=== PATIENT | male | born 1960 | race Caucasian/White ===

== ENCOUNTER 2017-10-12 09:26 | Observation (INO) | payer OTHER, SELFPAY ==
[2017-10-12] VITALS (10 sets, daily range): BP systolic 129–187; BP diastolic 56–87; PULSE 60–76; RESP 16–24; TEMP 36.1–37.1; O2SAT 95–99; BMI 47.2
--- NOTE | 2017-10-12 09:42 | DI.RAD.S_ITS ---
PROCEDURE: XR CHEST 2V INDICATIONS: chest pain TECHNIQUE: 2 views of the chest were acquired. COMPARISON: [facility], , CHEST 1 VIEW, 01/19/2017, 12:22. [facility], , XR CHEST 1V, 08/10/2017, 20:02. FINDINGS: Surgical changes and devices: Postsurgical changes are redemonstrated in the mediastinum. Lungs and pleura: No pleural effusions or pneumothorax. There is increased pulmonary edema. Mediastinum: Mediastinal contours are similar to the prior studies. Heart size is enlarged. Bones and chest wall: No suspicious bony abnormalities. Soft tissues appear unremarkable. IMPRESSION: 1. Increased pulmonary edema. Dictated by: Jose Mcdermott M.D. on 10/12/2017 at 10:46 Approved by: Jose Mcdermott M.D. on 10/12/2017 at 10:48
--- NOTE | 2017-10-12 09:59 | ED.CHESTPAIN ---
HPI - Chest Pain General Chief Complaint: Chest Pain Stated Complaint: CHEST PAIN,TOOK TWO NITRO Time Seen by Provider: 10/12/17 09:32 Source: patient Mode of arrival: ambulatory Limitations: no limitations History of Present Illness HPI narrative: Patient is a 57-year-old male with extensive cardiac history id a [place]. This is now his 2nd visit to the ED for chest pain. He took 1 or 2 nitro prior to arrival which she says only helped some. He says that this feels a little bit different and his pressure on his chest. It is nonradiating no shortness of breath. He was being evaluated at [facility] when he developed the pain and was sent to the ED for further evaluation. He was seen in August for the same. He had 2-troponins in the ED. He never followed up for for evaluation. MD complaint: chest pain Related Data Home Medications Medication Instructions Recorded Confirmed aspirin 81 mg PO DAILY #0 03/17/11 10/12/17 glipizide 10 mg PO QDAY #0 12/25/16 10/12/17 hydrochlorothiazide 25 mg PO QDAY #0 12/25/16 10/12/17 metformin [Glucophage XR] 500 mg PO BIDCC #60 tab 12/25/16 10/12/17 tramadol 50 mg PO BID #0 12/25/16 10/12/17 warfarin [Coumadin] 10 mg PO SUMOWEFR #0 12/25/16 10/12/17 lisinopril 40 mg PO QDAY #0 01/19/17 10/12/17 warfarin [Coumadin] 7.5 mg PO TUTHSA #0 01/19/17 10/12/17 atorvastatin 40 mg PO BEDTIME 10/12/17 10/12/17 furosemide 80 mg PO DAILY 10/12/17 10/12/17 gabapentin 600 mg PO TID 10/12/17 10/12/17 insulin aspart U-100 35 units SUB-Q TIDWM 10/12/17 10/12/17 insulin glargine 50 units SUB-Q BID 10/12/17 10/12/17 isosorbide mononitrate 30 mg PO QAM 10/12/17 10/12/17 levothyroxine [Synthroid] 75 mcg PO DAILY 10/12/17 10/12/17 lidocaine-prilocaine 1 applic TOPICAL DIRECTED 10/12/17 10/12/17 nitroglycerin [Nitrostat] 0.4 mg SUBLINGUAL Q5 MIN PRN PRN 10/12/17 10/12/17 Previous Rx's Medication Instructions Recorded fenofibrate 160 mg PO QDAY #90 03/25/12 metoprolol succinate [Toprol XL] 25 mg PO QDAY #30 tab 12/26/16 benztropine 1 mg tablet 1 mg PO BID 90 Days #180 tab 10/12/17 divalproex 500 mg tablet,delayed 1,500 mg PO BEDTIME #270 tab 10/12/17 release divalproex 500 mg tablet,delayed 500 mg PO QAM #90 tab 10/12/17 release fluoxetine 40 mg capsule 80 mg PO QAM 90 Days #180 tab 10/12/17 ziprasidone 80 mg capsule 160 mg PO BEDTIME #180 cap 10/12/17 Allergies Allergy/AdvReac Type Severity Reaction Status Date / Time Penicillins [PENICILLINS] Allergy Unknown Unverified 08/10/17 20:07 Review of Systems Review of Systems GENERAL: Denies chills, fatigue, malaise, fever, sweats, travel HEENT: Denies sinus pain, ear pain, sore throat, difficulty swallowing, neck pain RESPIRATORY: Denies dyspnea, cough, wheezing, hemoptysis, sputum. CARDIOVASCULAR: See HPI GASTROINTESTINAL: Denies nausea, vomiting, abdominal pain, diarrhea, constipation, melena. : Denies dysuria, frequency, incontinence, hematuria, urinary retention, flank pain. MUSCULOSKELETAL: Denies weakness, joint pain, or bony pain SKIN: No rash, no erythema, no pruritus NEUROLOGIC: Denies weakness, dizziness, headache, numbness, change in speech, confusion PSYCHIATRIC: No concerning psychosocial issues. 12 point review of systems is negative except for those stated above and HPI All systems reviewed & are unremarkable except as noted in HPI and below PFSH Medical History Chronic left shoulder pain (Acute) Pulmonary embolism (Acute) CAD (coronary artery disease) (Chronic) Diabetes type 2, controlled (Chronic) HTN (hypertension) (Chronic) Hyperlipidemia (Chronic) Schizoaffective disorder (Chronic) Surgical History Hx of CABG (Chronic) Family History: Reviewed 10/12/17 by Julio Salmon MD Social History household members: family lives independently: Yes caregiver/support person: Yes housing: house Smoking Status: Former smoker alcohol intake: never substance use type: does not use Exam Initial Vital Signs Initial Vital Signs: Vital Signs Temperature 97.8 F 10/12/17 09:35 Pulse Rate 67 10/12/17 09:35 Respiratory Rate 24 10/12/17 09:35 Blood Pressure 173/80 H 10/12/17 09:35 Pulse Oximetry 96 10/12/17 09:35 Const General: cooperative Nutritional Appearance: obese Orientation: alert, awake and oriented x3 Neck Neck: normal visual inspection Chest Chest: normal inspection of the chest Resp Effort & Inspection: normal respiratory effort, able to speak in complete sentences, no respiratory distress and no use of accessory muscles Auscultation: clear to auscultation bilaterally, no rales, no rhonchi and no wheezes Cardio Rate: regular rate Rhythm: regular rhythm Heart Sounds: no click, no gallops, no murmurs and no rubs Pulses: normal peripheral pulses Skin General: no rashes or lesions noted, No jaundice and No petechiae Neuro General: alert, oriented x3, gait normal and no focal motor deficits Speech: speech normal Course Orders Ordered: ED Orders 10/12/17 09:41 EKG-12 Lead Stat 10/12/17 09:42 XR chest 2V Stat 10/12/17 09:50 B Type Natriuretic Peptide Stat Complete Blood Count AUTO DIFF Stat Comprehensive Metabolic Panel Stat Lipase Stat Partial Thromboplastin Time Stat Prothrombin Time INR Stat Troponin with CK Cardiac Panel Stat 10/12/17 14:00 EKG-12 Lead DAILY 10/12/17 14:20 Hemoglobin A1C % Routine Lipid Panel Routine Troponin I Q8H 10/12/17 22:00 Troponin I Q8H 10/13/17 05:00 Prothrombin Time INR Routine Troponin I Routine Acetaminophen (Tylenol) 650 mg PO Q4HR JOSE L Aspirin (Aspirin Ec) 325 mg PO DAILY JOSE L Atorvastatin Calcium (Lipitor) 40 mg PO BEDTIME JOSE L Benztropine Mesylate (Cogentin) 1 mg PO BID JOSE L Dextrose (D50w) 25 gm IV PRN PRN PRN Reason: Hypoglycemia Divalproex Sodium (Depakote) 1,500 mg PO BEDTIME [facility] Fenofibrate (Triglide) 160 mg PO DAILY [facility] Fluoxetine HCl (Prozac) 80 mg PO DAILY [facility] Furosemide (Lasix) 80 mg PO DAILY [facility] Gabapentin (Neurontin) 600 mg PO TID JOSE L Glipizide (Glucotrol) 10 mg PO DAILY [facility] Hydrochlorothiazide (Hydrochlorothiazide) 25 mg PO DAILY [facility] Insulin Aspart (Novolog Flexpen) 0 unit SUBCUT ACHS JOSE L; Protocol Insulin Aspart (Novolog Flexpen) 35 unit SUBCUT TIDWM [facility] Insulin Glargine (Lantus Solostar (Pen)) 50 unit SUBCUT BID [facility] Isosorbide Mononitrate (Imdur) 30 mg PO DAILY [facility] Levothyroxine Sodium (Synthroid) 75 mcg PO DAILY [facility] Lidocaine/Prilocaine (Lidocaine-Prilocaine Cream) gm TOP DIRECTED [facility] Lisinopril (Zestril) 40 mg PO DAILY [facility] Magnesium Hydroxide (Milk Of Magnesia) 30 ml PO DAILY PRN PRN Reason: Constipation Metoprolol Succinate (Toprol Xl) 25 mg PO DAILY [facility] Morphine Sulfate (Morphine) 2 mg IV Q5MIN PRN PRN Reason: Chest Pain Last Admin: 10/12/17 14:28 Dose: 2 mg Nitroglycerin (Nitrostat) 0.4 mg SL Q5MIN PRN PRN Reason: CHEST PAIN Non-Formulary Medication (Divalproex [Depakote]) 500 mg PO DAILY [facility] Non-Formulary Medication (Ziprasidone Hcl [Ziprasidone Hcl]) 160 mg PO BEDTIME [facility] Tramadol HCl (Ultram 50mg Prepack) bottle MISC BID [facility] Warfarin Sodium (Coumadin) 7.5 mg PO TUTHSA [facility] Warfarin Sodium (Coumadin) 10 mg PO SUMOWEFR JOSE L Discontinued Medications Metformin HCl (Glucophage Xr) 500 mg PO BIDCC [facility] Nitroglycerin (Nitrostat) 0.4 mg SL [id number] PRN PRN Reason: Chest Pain Last Admin: 10/12/17 11:30 Dose: 0.4 mg Admin: 10/12/17 11:20 Dose: 0.4 mg Admin: 10/12/17 11:10 Dose: 0.4 mg Vital Signs - 8 hr 10/12/17 09:35 10/12/17 11:00 10/12/17 11:10 Temperature 97.8 F Pulse Rate 67 63 62 Respiratory Rate 24 16 Blood Pressure 173/80 H 187/86 H Blood Pressure [Left Arm] 167/82 H Pulse Oximetry 96 99 10/12/17 11:17 10/12/17 12:07 10/12/17 12:50 Temperature 98.8 F Pulse Rate 60 60 64 Respiratory Rate 18 22 16 Blood Pressure 148/87 H Blood Pressure [Left Arm] 167/82 H 187/86 H Pulse Oximetry 98 97 96 MDM - Chest Pain Lab Data Attestation: I reviewed the patient's lab results. Result diagrams: 10/12/17 09:50 10/12/17 09:50 Lab Results 10/12/17 10/12/17 10/12/17 Range/Units 09:50 09:50 09:50 WBC 7.5 (4.5-11.0) X10^3/uL RBC 4.55 (4.5-5.9) X10^6/uL Hgb 12.7 L (13.5-17.5) g/dL Hct 38.7 L (41-53) % MCV 84.9 (80-100) fL MCH 28.0 (26-34) PG MCHC 33.0 (30-36) % RDW 14.7 (11.6-14.8) % Plt Count 178 (150-400) X10^3/uL Neut % (Auto) 68.4 (50-75) % Lymph % (Auto) 24.1 L (25-40) % [place] % (Auto) 6.1 (3-14) % Eos % (Auto) 0.8 L (2-4) % Baso % (Auto) 0.6 (0-2) % Neut # (Auto) 5100 (6859-3333) /uL PT 29.7 H (10.1-12.7) SECONDS INR 2.8 H (0.9-1.3) APTT 41 H (26.4-36.2) SECONDS Sodium (137-145) mmol/L Potassium (3.4-5.1) mmol/L Chloride (98-107) mmol/L Carbon Dioxide (22-32) mmol/L BUN (9-20) mg/dL Creatinine (0.66-1.25) mg/dL Estimated GFR (>60) mL/min BUN/Creatinine Ratio (6-22) Glucose (70-100) mg/dL Hemoglobin A1c (4.0-6.0) % Calcium (8.4-10.2) mg/dL Total Bilirubin (0.2-1.3) mg/dL AST (17-59) IU/L ALT (21-72) IU/L Alkaline Phosphatase (38-126) U/L Total Creatine Kinase (55-170) U/L CK-MB (CK-2) (<2.37) ng/mL CK-MB (CK-2) Rel Index (1.5-5.0) % Troponin I (0.01-0.034) ng/mL B-Natriuretic Peptide 151.0 H (<100) Total Protein (6.3-8.2) g/dL Albumin (3.5-5.0) g/dL Globulin (1.7-4.1) g/dL Albumin/Globulin Ratio (1.0-2.8) Lipase (23-300) U/L 10/12/17 10/12/17 Range/Units 09:50 14:20 WBC (4.5-11.0) X10^3/uL RBC (4.5-5.9) X10^6/uL Hgb (13.5-17.5) g/dL Hct (41-53) % MCV (80-100) fL MCH (26-34) PG MCHC (30-36) % RDW (11.6-14.8) % Plt Count (150-400) X10^3/uL Neut % (Auto) (50-75) % Lymph % (Auto) (25-40) % [place] % (Auto) (3-14) % Eos % (Auto) (2-4) % Baso % (Auto) (0-2) % Neut # (Auto) (3679-9284) /uL PT (10.1-12.7) SECONDS INR (0.9-1.3) APTT (26.4-36.2) SECONDS Sodium 140 (137-145) mmol/L Potassium 4.3 (3.4-5.1) mmol/L Chloride 103 (98-107) mmol/L Carbon Dioxide 28 (22-32) mmol/L BUN 11 (9-20) mg/dL Creatinine 1.00 (0.66-1.25) mg/dL Estimated GFR > 60.0 (>60) mL/min BUN/Creatinine Ratio 11.0 (6-22) Glucose 76 (70-100) mg/dL Hemoglobin A1c 7.0 H (4.0-6.0) % Calcium 9.0 (8.4-10.2) mg/dL Total Bilirubin 0.4 (0.2-1.3) mg/dL AST 24 (17-59) IU/L ALT 39 (21-72) IU/L Alkaline Phosphatase 75 (38-126) U/L Total Creatine Kinase 281 H (55-170) U/L CK-MB (CK-2) 1.82 (<2.37) ng/mL CK-MB (CK-2) Rel Index 0.6 L (1.5-5.0) % Troponin I < 0.012 (0.01-0.034) ng/mL B-Natriuretic Peptide (<100) Total Protein 7.0 (6.3-8.2) g/dL Albumin 3.9 (3.5-5.0) g/dL Globulin 3.1 (1.7-4.1) g/dL Albumin/Globulin Ratio 1.3 (1.0-2.8) Lipase 35 (23-300) U/L Imaging Data Chest x-ray: Radiologist's impression: PROCEDURE: XR CHEST 2V INDICATIONS: chest pain TECHNIQUE: 2 views of the chest were acquired. COMPARISON: [facility], CHEST 1 VIEW, 01/19/2017, 12:22. [facility], XR CHEST 1V, 08/10/2017, 20:02. FINDINGS: Surgical changes and devices: Postsurgical changes are redemonstrated in the mediastinum. Lungs and pleura: No pleural effusions or pneumothorax. There is increased pulmonary edema. Mediastinum: Mediastinal contours are similar to the prior studies. Heart size is enlarged. Bones and chest wall: No suspicious bony abnormalities. Soft tissues appear unremarkable. IMPRESSION: 1. Increased pulmonary edema. Dictated by: Jose Mcdermott M.D. on 10/12/2017 at 10:46 ECG Data Attestation: I personally reviewed and interpreted this ECG as follows: Prior ECG tracings: available for review Interpretation: Normal sinus rhythm rate [address] changes Q-waves noted in inferior leads similar to previous EKG MDM Narrative Medical decision making narrative: Pain has improved with nitroglycerin in the ED Patient has extensive cardiac disease, this is the 2nd visit to the ED initially ruled out with troponins however still has not had further evaluation. [facility] or all of full. Not able to get extent over further workup at this time. He will be placed in observation here. Dr. Salmon has been updated and agrees Discharge Plan Departure Patient Disposition: Admitted as Observation Clinical Impression: Chest pain Discharge Date/Time: 10/12/17 12:44 Interventions: ED Discharge Assessment Last Done: 10/12/17 12:44 Admit Date/Time: 10/12/17 12:40 Admit Provider: Julio Salmon V
--- NOTE | 2017-10-12 10:02 | ED_ITS ---
HPI - Chest Pain General Chief Complaint: Chest Pain Stated Complaint: CHEST PAIN,TOOK TWO NITRO Time Seen by Provider: 10/12/17 09:32 Source: patient Mode of arrival: ambulatory Limitations: no limitations History of Present Illness HPI narrative: Patient is a 57-year-old male with extensive cardiac history id a [place]. This is now his 2nd visit to the ED for chest pain. He took 1 or 2 nitro prior to arrival which she says only helped some. He says that this feels a little bit different and his pressure on his chest. It is nonradiating no shortness of breath. He was being evaluated at [facility] when he developed the pain and was sent to the ED for further evaluation. He was seen in August for the same. He had 2-troponins in the ED. He never followed up for for evaluation. MD complaint: chest pain Related Data Home Medications Medication Instructions Recorded Confirmed aspirin 81 mg PO DAILY #0 03/17/11 10/12/17 glipizide 10 mg PO QDAY #0 12/25/16 10/12/17 hydrochlorothiazide 25 mg PO QDAY #0 12/25/16 10/12/17 metformin [Glucophage XR] 500 mg PO BIDCC #60 tab 12/25/16 10/12/17 tramadol 50 mg PO BID #0 12/25/16 10/12/17 warfarin [Coumadin] 10 mg PO SUMOWEFR #0 12/25/16 10/12/17 lisinopril 40 mg PO QDAY #0 01/19/17 10/12/17 warfarin [Coumadin] 7.5 mg PO TUTHSA #0 01/19/17 10/12/17 atorvastatin 40 mg PO BEDTIME 10/12/17 10/12/17 furosemide 80 mg PO DAILY 10/12/17 10/12/17 gabapentin 600 mg PO TID 10/12/17 10/12/17 insulin aspart U-100 35 units SUB-Q TIDWM 10/12/17 10/12/17 insulin glargine 50 units SUB-Q BID 10/12/17 10/12/17 isosorbide mononitrate 30 mg PO QAM 10/12/17 10/12/17 levothyroxine [Synthroid] 75 mcg PO DAILY 10/12/17 10/12/17 lidocaine-prilocaine 1 applic TOPICAL DIRECTED 10/12/17 10/12/17 nitroglycerin [Nitrostat] 0.4 mg SUBLINGUAL Q5 MIN PRN PRN 10/12/17 10/12/17 Previous Rx's Medication Instructions Recorded fenofibrate 160 mg PO QDAY #90 03/25/12 metoprolol succinate [Toprol XL] 25 mg PO QDAY #30 tab 12/26/16 benztropine 1 mg tablet 1 mg PO BID 90 Days #180 tab 10/12/17 divalproex 500 mg tablet,delayed 1,500 mg PO BEDTIME #270 tab 10/12/17 release divalproex 500 mg tablet,delayed 500 mg PO QAM #90 tab 10/12/17 release fluoxetine 40 mg capsule 80 mg PO QAM 90 Days #180 tab 10/12/17 ziprasidone 80 mg capsule 160 mg PO BEDTIME #180 cap 10/12/17 Allergies Allergy/AdvReac Type Severity Reaction Status Date / Time Penicillins [PENICILLINS] Allergy Unknown Unverified 08/10/17 20:07 Review of Systems Review of Systems GENERAL: Denies chills, fatigue, malaise, fever, sweats, travel HEENT: Denies sinus pain, ear pain, sore throat, difficulty swallowing, neck pain RESPIRATORY: Denies dyspnea, cough, wheezing, hemoptysis, sputum. CARDIOVASCULAR: See HPI GASTROINTESTINAL: Denies nausea, vomiting, abdominal pain, diarrhea, constipation, melena. : Denies dysuria, frequency, incontinence, hematuria, urinary retention, flank pain. MUSCULOSKELETAL: Denies weakness, joint pain, or bony pain SKIN: No rash, no erythema, no pruritus NEUROLOGIC: Denies weakness, dizziness, headache, numbness, change in speech, confusion PSYCHIATRIC: No concerning psychosocial issues. 12 point review of systems is negative except for those stated above and HPI All systems reviewed & are unremarkable except as noted in HPI and below PFSH Medical History Chronic left shoulder pain (Acute) Pulmonary embolism (Acute) CAD (coronary artery disease) (Chronic) Diabetes type 2, controlled (Chronic) HTN (hypertension) (Chronic) Hyperlipidemia (Chronic) Schizoaffective disorder (Chronic) Surgical History Hx of CABG (Chronic) Family History: Reviewed 10/12/17 by Julio Salmon MD Social History household members: family lives independently: Yes caregiver/support person: Yes housing: house Smoking Status: Former smoker alcohol intake: never substance use type: does not use Exam Initial Vital Signs Initial Vital Signs: Vital Signs Temperature 97.8 F 10/12/17 09:35 Pulse Rate 67 10/12/17 09:35 Respiratory Rate 24 10/12/17 09:35 Blood Pressure 173/80 H 10/12/17 09:35 Pulse Oximetry 96 10/12/17 09:35 Const General: cooperative Nutritional Appearance: obese Orientation: alert, awake and oriented x3 Neck Neck: normal visual inspection Chest Chest: normal inspection of the chest Resp Effort & Inspection: normal respiratory effort, able to speak in complete sentences, no respiratory distress and no use of accessory muscles Auscultation: clear to auscultation bilaterally, no rales, no rhonchi and no wheezes Cardio Rate: regular rate Rhythm: regular rhythm Heart Sounds: no click, no gallops, no murmurs and no rubs Pulses: normal peripheral pulses Skin General: no rashes or lesions noted, No jaundice and No petechiae Neuro General: alert, oriented x3, gait normal and no focal motor deficits Speech: speech normal Course Orders Ordered: ED Orders 10/12/17 09:41 EKG-12 Lead Stat 10/12/17 09:42 XR chest 2V Stat 10/12/17 09:50 B Type Natriuretic Peptide Stat Complete Blood Count AUTO DIFF Stat Comprehensive Metabolic Panel Stat Lipase Stat Partial Thromboplastin Time Stat Prothrombin Time INR Stat Troponin with CK Cardiac Panel Stat 10/12/17 14:00 EKG-12 Lead DAILY 10/12/17 14:20 Hemoglobin A1C % Routine Lipid Panel Routine Troponin I Q8H 10/12/17 22:00 Troponin I Q8H 10/13/17 05:00 Prothrombin Time INR Routine Troponin I Routine Acetaminophen (Tylenol) 650 mg PO Q4HR JOSE L Aspirin (Aspirin Ec) 325 mg PO DAILY JOSE L Atorvastatin Calcium (Lipitor) 40 mg PO BEDTIME JOSE L Benztropine Mesylate (Cogentin) 1 mg PO BID JOSE L Dextrose (D50w) 25 gm IV PRN PRN PRN Reason: Hypoglycemia Divalproex Sodium (Depakote) 1,500 mg PO BEDTIME [facility] Fenofibrate (Triglide) 160 mg PO DAILY [facility] Fluoxetine HCl (Prozac) 80 mg PO DAILY [facility] Furosemide (Lasix) 80 mg PO DAILY [facility] Gabapentin (Neurontin) 600 mg PO TID JOSE L Glipizide (Glucotrol) 10 mg PO DAILY [facility] Hydrochlorothiazide (Hydrochlorothiazide) 25 mg PO DAILY [facility] Insulin Aspart (Novolog Flexpen) 0 unit SUBCUT ACHS JOSE L; Protocol Insulin Aspart (Novolog Flexpen) 35 unit SUBCUT TIDWM [facility] Insulin Glargine (Lantus Solostar (Pen)) 50 unit SUBCUT BID [facility] Isosorbide Mononitrate (Imdur) 30 mg PO DAILY [facility] Levothyroxine Sodium (Synthroid) 75 mcg PO DAILY [facility] Lidocaine/Prilocaine (Lidocaine-Prilocaine Cream) gm TOP DIRECTED [facility] Lisinopril (Zestril) 40 mg PO DAILY [facility] Magnesium Hydroxide (Milk Of Magnesia) 30 ml PO DAILY PRN PRN Reason: Constipation Metoprolol Succinate (Toprol Xl) 25 mg PO DAILY [facility] Morphine Sulfate (Morphine) 2 mg IV Q5MIN PRN PRN Reason: Chest Pain Last Admin: 10/12/17 14:28 Dose: 2 mg Nitroglycerin (Nitrostat) 0.4 mg SL Q5MIN PRN PRN Reason: CHEST PAIN Non-Formulary Medication (Divalproex [Depakote]) 500 mg PO DAILY [facility] Non-Formulary Medication (Ziprasidone Hcl [Ziprasidone Hcl]) 160 mg PO BEDTIME [facility] Tramadol HCl (Ultram 50mg Prepack) bottle MISC BID [facility] Warfarin Sodium (Coumadin) 7.5 mg PO TUTHSA [facility] Warfarin Sodium (Coumadin) 10 mg PO SUMOWEFR JOSE L Discontinued Medications Metformin HCl (Glucophage Xr) 500 mg PO BIDCC [facility] Nitroglycerin (Nitrostat) 0.4 mg SL [id number] PRN PRN Reason: Chest Pain Last Admin: 10/12/17 11:30 Dose: 0.4 mg Admin: 10/12/17 11:20 Dose: 0.4 mg Admin: 10/12/17 11:10 Dose: 0.4 mg Vital Signs - 8 hr 10/12/17 09:35 10/12/17 11:00 10/12/17 11:10 Temperature 97.8 F Pulse Rate 67 63 62 Respiratory Rate 24 16 Blood Pressure 173/80 H 187/86 H Blood Pressure [Left Arm] 167/82 H Pulse Oximetry 96 99 10/12/17 11:17 10/12/17 12:07 10/12/17 12:50 Temperature 98.8 F Pulse Rate 60 60 64 Respiratory Rate 18 22 16 Blood Pressure 148/87 H Blood Pressure [Left Arm] 167/82 H 187/86 H Pulse Oximetry 98 97 96 MDM - Chest Pain Lab Data Attestation: I reviewed the patient's lab results. Result diagrams: 10/12/17 09:50 10/12/17 09:50 Lab Results 10/12/17 10/12/17 10/12/17 Range/Units 09:50 09:50 09:50 WBC 7.5 (4.5-11.0) X10^3/uL RBC 4.55 (4.5-5.9) X10^6/uL Hgb 12.7 L (13.5-17.5) g/dL Hct 38.7 L (41-53) % MCV 84.9 (80-100) fL MCH 28.0 (26-34) PG MCHC 33.0 (30-36) % RDW 14.7 (11.6-14.8) % Plt Count 178 (150-400) X10^3/uL Neut % (Auto) 68.4 (50-75) % Lymph % (Auto) 24.1 L (25-40) % [place] % (Auto) 6.1 (3-14) % Eos % (Auto) 0.8 L (2-4) % Baso % (Auto) 0.6 (0-2) % Neut # (Auto) 5100 (7770-0119) /uL PT 29.7 H (10.1-12.7) SECONDS INR 2.8 H (0.9-1.3) APTT 41 H (26.4-36.2) SECONDS Sodium (137-145) mmol/L Potassium (3.4-5.1) mmol/L Chloride (98-107) mmol/L Carbon Dioxide (22-32) mmol/L BUN (9-20) mg/dL Creatinine (0.66-1.25) mg/dL Estimated GFR (>60) mL/min BUN/Creatinine Ratio (6-22) Glucose (70-100) mg/dL Hemoglobin A1c (4.0-6.0) % Calcium (8.4-10.2) mg/dL Total Bilirubin (0.2-1.3) mg/dL AST (17-59) IU/L ALT (21-72) IU/L Alkaline Phosphatase (38-126) U/L Total Creatine Kinase (55-170) U/L CK-MB (CK-2) (<2.37) ng/mL CK-MB (CK-2) Rel Index (1.5-5.0) % Troponin I (0.01-0.034) ng/mL B-Natriuretic Peptide 151.0 H (<100) Total Protein (6.3-8.2) g/dL Albumin (3.5-5.0) g/dL Globulin (1.7-4.1) g/dL Albumin/Globulin Ratio (1.0-2.8) Lipase (23-300) U/L 10/12/17 10/12/17 Range/Units 09:50 14:20 WBC (4.5-11.0) X10^3/uL RBC (4.5-5.9) X10^6/uL Hgb (13.5-17.5) g/dL Hct (41-53) % MCV (80-100) fL MCH (26-34) PG MCHC (30-36) % RDW (11.6-14.8) % Plt Count (150-400) X10^3/uL Neut % (Auto) (50-75) % Lymph % (Auto) (25-40) % [place] % (Auto) (3-14) % Eos % (Auto) (2-4) % Baso % (Auto) (0-2) % Neut # (Auto) (0229-4814) /uL PT (10.1-12.7) SECONDS INR (0.9-1.3) APTT (26.4-36.2) SECONDS Sodium 140 (137-145) mmol/L Potassium 4.3 (3.4-5.1) mmol/L Chloride 103 (98-107) mmol/L Carbon Dioxide 28 (22-32) mmol/L BUN 11 (9-20) mg/dL Creatinine 1.00 (0.66-1.25) mg/dL Estimated GFR > 60.0 (>60) mL/min BUN/Creatinine Ratio 11.0 (6-22) Glucose 76 (70-100) mg/dL Hemoglobin A1c 7.0 H (4.0-6.0) % Calcium 9.0 (8.4-10.2) mg/dL Total Bilirubin 0.4 (0.2-1.3) mg/dL AST 24 (17-59) IU/L ALT 39 (21-72) IU/L Alkaline Phosphatase 75 (38-126) U/L Total Creatine Kinase 281 H (55-170) U/L CK-MB (CK-2) 1.82 (<2.37) ng/mL CK-MB (CK-2) Rel Index 0.6 L (1.5-5.0) % Troponin I < 0.012 (0.01-0.034) ng/mL B-Natriuretic Peptide (<100) Total Protein 7.0 (6.3-8.2) g/dL Albumin 3.9 (3.5-5.0) g/dL Globulin 3.1 (1.7-4.1) g/dL Albumin/Globulin Ratio 1.3 (1.0-2.8) Lipase 35 (23-300) U/L Imaging Data Chest x-ray: Radiologist's impression: PROCEDURE: XR CHEST 2V INDICATIONS: chest pain TECHNIQUE: 2 views of the chest were acquired. COMPARISON: [facility], CHEST 1 VIEW, 01/19/2017, 12:22. [facility], XR CHEST 1V, 08/10/2017, 20:02. FINDINGS: Surgical changes and devices: Postsurgical changes are redemonstrated in the mediastinum. Lungs and pleura: No pleural effusions or pneumothorax. There is increased pulmonary edema. Mediastinum: Mediastinal contours are similar to the prior studies. Heart size is enlarged. Bones and chest wall: No suspicious bony abnormalities. Soft tissues appear unremarkable. IMPRESSION: 1. Increased pulmonary edema. Dictated by: Jose Mcdermott M.D. on 10/12/2017 at 10:46 ECG Data Attestation: I personally reviewed and interpreted this ECG as follows: Prior ECG tracings: available for review Interpretation: Normal sinus rhythm rate [address] changes Q-waves noted in inferior leads similar to previous EKG MDM Narrative Medical decision making narrative: Pain has improved with nitroglycerin in the ED Patient has extensive cardiac disease, this is the 2nd visit to the ED initially ruled out with troponins however still has not had further evaluation. The [place] or all of full. Not able to get extent over further workup at this time. He will be placed in observation here. Dr. Salmon has been updated and agrees Discharge Plan Departure Patient Disposition: Admitted as Observation Clinical Impression: Chest pain Discharge Date/Time: 10/12/17 12:44 Interventions: ED Discharge Assessment Last Done: 10/12/17 12:44 Admit Date/Time: 10/12/17 12:40 Admit Provider: Julio Salmon V
[2017-10-12 10:06] LABS: Add Manual Diff / Slide Review NO; Basophils Percent Auto 0.6 % (0-2); Eosinophils Percent Auto 0.8 % (2-4); Hematocrit 38.7 % (41-53); Hemoglobin 12.7 g/dL (13.5-17.5); Lymphocytes Percent Auto 24.1 % (25-40); Mean Corpuscular Volume 84.9 fL (80-100); Monocytes Percent Auto 6.1 % (3-14); Neutrophils Absolute Auto 5100 /uL (3000-5900); Neutrophils Percent Auto 68.4 % (50-75); Platelet Count 178 X10^3/uL (150-400); Red Blood Cell Count 4.55 X10^6/uL (4.5-5.9); Red Cell Distribution Width 14.7 % (11.6-14.8); White Blood Cell Count 7.5 X10^3/uL (4.5-11.0)
[2017-10-12 10:12] LABS: INR 2.8 (0.9-1.3); Prothrombin Time 29.7 SECONDS (10.1-12.7)
[2017-10-12 10:14] LABS: PTT Partial Thromboplastin Tim 41 SECONDS (26.4-36.2)
[2017-10-12 10:16] LABS: Alanine Aminotransferase 39 IU/L (21-72); Albumin 3.9 g/dL (3.5-5.0); Albumin Globulin Ratio 1.3 (1.0-2.8); Alkaline Phosphatase 75 U/L (38-126); Aspartate Aminotransferase 24 IU/L (17-59); Bilirubin Total 0.4 mg/dL (0.2-1.3); Blood Urea Nitrogen 11 mg/dL (9-20); Carbon Dioxide 28 mmol/L (22-32); Chloride 103 mmol/L (98-107); Creatine Kinase 281 U/L (55-170); Estimated Glomerular Filt Rate > 60.0 mL/min (>60); Globulin 3.1 g/dL (1.7-4.1); Glucose 76 mg/dL (70-100); Lipase 35 U/L (23-300); Potassium 4.3 mmol/L (3.4-5.1); Sodium 140 mmol/L (137-145)
[2017-10-12 10:28] LABS: Troponin I < 0.012 ng/mL (0.01-0.034)
[2017-10-12 10:31] LABS: CKMB % Relative Index 0.6 % (1.5-5.0); Creatine Kinase MB 1.82 ng/mL (<2.37); HEMOLYSIS 24 (0-50)
[2017-10-12] MEDS: NITROGLYCERIN 0.4 MG SL TAB SL ×3 (11:10→11:30)
--- NOTE | 2017-10-12 12:14 | PC.NURSE ---
pt cont on stretcher/ continuous monitor ntg x 3 given, min paulina pettit aware.
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
[2017-10-12] MEDS: MORPHINE 2 MG/ML INJ IV ×2 (14:28→16:10)
[2017-10-12 14:51] LABS: Cholesterol 118 mg/dL (140-199); HDL Cholesterol 36 mg/dL (40-60); LDL Cholesterol Calculated 64 mg/dL (<100); Triglycerides 89 mg/dL (35-150)
[2017-10-12 15:05] LABS: Troponin I < 0.012 ng/mL (0.01-0.034)
--- NOTE | 2017-10-12 15:21 | PC.NURSE ---
arrival note pt arrived on a stretcher from ED. assessed pt and he states he has 6/10 chest pain. medicated with 2 mg morphine as pt states nitro did not help chest pain and only gave him a SESAY. states pain is down to 3/10. Pt also states he thinks his BS is low, checked and was 68. provided pt with 2 half sandwiches and 1 juice. on recheck, it was 93. provided pt with another juice. next shift will admit pt.
[2017-10-12] MEDS: GABAPENTIN 600 MG TABLET PO ×2 (15:37→22:18)
[2017-10-12] MEDS: DIVALPROEX DR 250 MG TABLET 500 MG PO (16:17)
[2017-10-12] MEDS: WARFARIN 7.5 MG TABLET PO (16:19)
[2017-10-12] MEDS: FENOFIBRATE 160 MG TABLET PO (16:19)
[2017-10-12] MEDS: ISOSORBIDE MONONITRATE ER 30 MG TABLET PO (16:20)
[2017-10-12] MEDS: LISINOPRIL 20 MG TABLET 40 MG PO (16:21)
[2017-10-12] MEDS: FLUoxetine 20 MG CAPSULE 80 MG PO (16:21)
[2017-10-12] MEDS: hydroCHLOROthiazide 25 MG TABLET PO (16:23)
[2017-10-12] MEDS: METOPROLOL ER 25 MG TABLET PO (16:24)
[2017-10-12] MEDS: ACETAMINOPHEN 325 MG TABLET 650 MG PO ×2 (16:31→22:14)
--- NOTE | 2017-10-12 18:26 | PC.NURSE ---
Addendum entered by Ledy Izaguirre R.N. 10/12/17 22:00: Uneventful evening. Pt denies any complaints at this time. Tele shows NSR per ICU staff. Assisted to BR w/o incidence. Call light w/in reach. bed alarm on for pt safety. Continue w/plan of care. Original Note: Pt watching TV. States discomfort is 2/10. MS IV given as per orders. HL LAC intact/patent. Assisted to BR w/o incidence. Tele showing NSR per ICU staff. CBG @ 7445 = 104. Call light w/in reach, bed alarm on for pt safety.
[2017-10-12] MEDS: ATORVASTATIN 20 MG TABLET 40 MG PO (22:16)
[2017-10-12] MEDS: DIVALPROEX DR 250 MG TABLET 1500 MG PO (22:17)
[2017-10-12] MEDS: BENZTROPINE 1 MG TABLET PO (22:18)
[2017-10-12] MEDS: ZIPRASIDONE HCL 40 MG 160 EACH PO (22:19)
[2017-10-12] MEDS: INSULIN GLARGINE 100 UNIT/ML 3ML PEN 50 UNIT SUBCUT (22:38)
--- NOTE | 2017-10-12 22:44 | PC.NURSE ---
Patient's blood glucose 83 @ hs- questioned what his usual blood sugars are at home- usually low 100's and how he would manage a glucose of 83 at home for bedtime insulin- I would eat a candy bar and take usual 50 units of insulin. Rechecked glucose- 104- patient given usual Lantus dose of 50 units, plus snack of cheese, cookies and applesauce. Instructed to notify staff if he feels lower blood glucose and will have nightshift recheck cbg during the night.
[2017-10-12 23:25] LABS: Troponin I < 0.012 ng/mL (0.01-0.034)
[2017-10-13] VITALS (9 sets, daily range): BP systolic 111–141; BP diastolic 46–76; PULSE 58–61; RESP 16–18; TEMP 36.3–36.8; O2SAT 92–96
[2017-10-13] MEDS: ACETAMINOPHEN 325 MG TABLET 650 MG PO ×5 (04:17→20:03)
[2017-10-13 05:50] LABS: INR 3.3 (0.9-1.3); Prothrombin Time 35.5 SECONDS (10.1-12.7)
[2017-10-13 06:14] LABS: Troponin I < 0.012 ng/mL (0.01-0.034)
[2017-10-13] MEDS: DIVALPROEX DR 250 MG TABLET 500 MG PO (07:55)
[2017-10-13] MEDS: BENZTROPINE 1 MG TABLET PO ×2 (07:55→20:03)
[2017-10-13] MEDS: ASPIRIN EC 325 MG TABLET PO (07:55)
[2017-10-13] MEDS: GABAPENTIN 600 MG TABLET PO ×3 (07:56→20:02)
[2017-10-13] MEDS: FUROSEMIDE 40 MG TABLET 80 MG PO (07:56)
[2017-10-13] MEDS: FENOFIBRATE 160 MG TABLET PO (07:56)
[2017-10-13] MEDS: FLUoxetine 20 MG CAPSULE 80 MG PO (07:56)
[2017-10-13] MEDS: ISOSORBIDE MONONITRATE ER 30 MG TABLET PO (07:57)
[2017-10-13] MEDS: hydroCHLOROthiazide 25 MG TABLET PO (07:57)
[2017-10-13] MEDS: LEVOTHYROXINE 75 MCG TABLET PO (07:57)
[2017-10-13] MEDS: LISINOPRIL 20 MG TABLET 40 MG PO (07:58)
[2017-10-13] MEDS: METOPROLOL ER 25 MG TABLET PO (07:58)
[2017-10-13] MEDS: MORPHINE 2 MG/ML INJ IV (08:05)
--- NOTE | 2017-10-13 08:38 | PC.NURSE ---
8am patient reports 3/10 mid sternum chest discomfort, described as pressure and mild. 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 patient refused nitro SL stating it did not help last night. Patient requested morphine as ordered prn and states it was effective yesterday evening in resolving discomfort. Patient given morphine as ordered along with am medications as scheduled. Dr. Salmon paged and awaiting return call. Patient resting comfortably in bed at this time, and denies pain. Continue to follow.
[2017-10-13] MEDS: INSULIN GLARGINE 100 UNIT/ML 3ML PEN 50 UNIT SUBCUT (08:55)
[2017-10-13] MEDS: INSULIN ASPART 100 UNIT/ML INSULN PEN 35 UNIT SUBCUT ×2 (08:55→14:18)
[2017-10-13] MEDS: PANTOPRAZOLE 40 MG TABLET PO ×2 (10:16→20:02)
[2017-10-13] MEDS: AMLODIPINE 2.5 MG TABLET PO (10:16)
--- NOTE | 2017-10-13 12:01 | PM.PN.1 ---
Subjective Date Patient Seen: 10/13/17 Time Patient Seen: 11:20 Interval history: The patient reports ongoing intermittent chest squeezing, relieved with morphine but not nitroglycerin. Cardiac enzymes and EKGs have returned unremarkable so far. Exam Vital Signs (past 8 hours): - 10/13/17 04:13 10/13/17 04:22 10/13/17 08:00 Temperature 97.4 F L 98.2 F Pulse Rate 59 L 58 L Respiratory Rate 16 18 Blood Pressure 119/76 141/68 H Pulse Oximetry 94 94 96 Oxygen Delivery Method Room Air Oxygen Flow Rate 0 Narrative Exam Narrative: General: Alert, pleasant, appears comfortable 8 HEENT: Unremarkable Neck: Supple Lungs: Clear to auscultation Cardiac: Regular rate and rhythm Abdomen: Soft nontender Extremities: Without edema Neurologic: Appropriate, grossly nonfocal Objective Labs Result Diagrams: 10/12/17 09:50 10/12/17 09:50 Labs: Laboratory Results - last 24 hr 10/12/17 10/12/17 10/12/17 14:20 14:20 14:20 PT INR Hemoglobin A1c 7.0 H Troponin I < 0.012 Triglycerides 89 Cholesterol 118 L LDL Cholesterol, Calc 64 HDL Cholesterol 36 L 10/12/17 10/13/17 10/13/17 22:37 05:15 05:15 PT 35.5 H D INR 3.3 H Hemoglobin A1c Troponin I < 0.012 < 0.012 Triglycerides Cholesterol LDL Cholesterol, Calc HDL Cholesterol Assessment & Plan Plan: Assessment/Plan Narrative: 1. Chest pain. Ruled out for myocardial infarction, rule out underlying ischemic cardiomyopathy with acute coronary syndrome. Add proton pump inhibitor twice daily for possible gastric etiology. Add amlodipine 2.5 mg daily as an antianginal. Obtain pharmacologic stress test tomorrow (poor exercise tolerance). Continue on observation status, monitored on telemetry, follow serial cardiac enzymes. Treat with nitroglycerin and morphine as needed. Continue aspirin, beta-ida and statin therapy. Note relative bradycardia limits beta-ida titration. Hold metformin in the event he requires angiography. 2. Diabetes mellitus, type 2. Well controlled with hemoglobin A1c 7.0%. Continue routine insulin. Hold metformin as noted above. Provide sliding scale coverage and diabetic diet. 3. Hypertension. Continue routine medication. 4. Hyperlipidemia. Well controlled with LDL 64. Continue routine statin therapy. 5. History of pulmonary embolism. Currently therapeutic on warfarin. Continue current therapy and monitor. 6. Schizophrenia. Continue routine medication. Note that Zyprexa is associated with increased coronary events. 7. DVT prophylaxis: Addressed on warfarin. 8. Code status: Full code.
--- NOTE | 2017-10-13 13:55 | CM.DANOTE ---
Discharge Planning/Care Management Patient is a 57 year old male who was admitted OBS STATUS on 10/12/17 for Chest Pain. Pt has [facility] and [place] for insurance and his PCP is Dr. Juárez. EMR was reviewed. Per MD, pt has a hx of Pschizoeffective DO and CABG and to have a stress test tomorrow and if results are good then pt likely can d/c home tomorrow. SW met bedside with pt and explained role and pt confirmed that he moved from [place] last year, where he still has his exwife and son, to move in with his parents in [place] to help them out. 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 Pt confirms that he sees his Psychiatrist Dr. Jovel regularly, and just saw her yesterday when she recommended he come to the ER for his heart issues. Dr. Jovel provides some therapy and med management for his mental health dx. Pt does not anticipate any SW needs at d/c and plan is to d/c home with his dad bringing him his car to drive them home. Plan: SW to follow for likely pt d/c home after stress test tomorrow pending results. Pt has a ride home from his dad. 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 Is this patient on Medicare? Yes Is the admit diagnosis the same? Yes Prior Living Arrangements House Household Members family Type of transporation used prior to Drives own vehicle admit Comment Patient takes care of his elderly parents Independent with ADL's Yes Is patient alert and oriented? Yes Needs Assistance With Managing Medications Caregiver for Another Yes: lives with and takes care of his parents Community Services used prior to Social Work admission: Referrals Initiated None needed Comment Pt already established with Psychiatrist for therapy and med managment and SW to coordinate services. Discharge Plan Home Transportation Arrangement Father will bring pt's car for transport home at d/c. Review Status In Process Next Review Type Discharge Review
--- NOTE | 2017-10-13 16:24 | PC.NURSE ---
Patient is A&O x3, pleasant and cooperative w/ staff and able to make needs known when nec. Patient is resting watching tv. Reports chest pressure 3/10 at this time but tolerable. 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 Discussed typical home blood surgar readings and what he typically does for insulin treatment, discussed sxs to be aware of w/ low BS. Patient states he is familiar w/ what those sxs feel like but states he normally runs higher at home. Discussed plan for stress test in AM and that he can not have any caffeine or chocolate this oniel. Patient is agreeable to plan. Call light w/in reach, bed in low pos. alarm active.
[2017-10-13] MEDS: WARFARIN 5 MG TABLET 10 MG PO (16:51)
[2017-10-13] MEDS: DIVALPROEX DR 250 MG TABLET 1500 MG PO (20:02)
[2017-10-13] MEDS: ZIPRASIDONE HCL 40 MG 160 EACH PO (20:02)
[2017-10-13] MEDS: ATORVASTATIN 20 MG TABLET 40 MG PO (20:03)
[2017-10-14] VITALS (8 sets, daily range): BP systolic 124–140; BP diastolic 66–84; PULSE 59–65; RESP 16–18; TEMP 36.2–36.8; O2SAT 92–95
[2017-10-14] MEDS: ACETAMINOPHEN 325 MG TABLET 650 MG PO ×4 (04:01→20:18)
[2017-10-14 05:48] LABS: Troponin I < 0.012 ng/mL (0.01-0.034)
[2017-10-14] MEDS: MORPHINE 2 MG/ML INJ IV (06:10)
[2017-10-14] MEDS: LEVOTHYROXINE 75 MCG TABLET PO (07:48)
[2017-10-14] MEDS: PANTOPRAZOLE 40 MG TABLET PO ×2 (07:48→20:19)
[2017-10-14] MEDS: BENZTROPINE 1 MG TABLET PO ×2 (08:41→20:17)
[2017-10-14] MEDS: ASPIRIN EC 325 MG TABLET PO (08:41)
[2017-10-14] MEDS: AMLODIPINE 2.5 MG TABLET PO (08:41)
[2017-10-14] MEDS: DIVALPROEX DR 250 MG TABLET 500 MG PO (08:42)
[2017-10-14] MEDS: FENOFIBRATE 160 MG TABLET PO (08:42)
[2017-10-14] MEDS: FUROSEMIDE 40 MG TABLET 80 MG PO (08:43)
[2017-10-14] MEDS: FLUoxetine 20 MG CAPSULE 80 MG PO (08:43)
[2017-10-14] MEDS: GABAPENTIN 600 MG TABLET PO ×3 (08:43→20:17)
[2017-10-14] MEDS: INSULIN GLARGINE 100 UNIT/ML 3ML PEN 50 UNIT SUBCUT ×2 (08:43→20:20)
[2017-10-14] MEDS: hydroCHLOROthiazide 25 MG TABLET PO (08:43)
[2017-10-14] MEDS: ISOSORBIDE MONONITRATE ER 30 MG TABLET PO (08:49)
[2017-10-14] MEDS: LISINOPRIL 20 MG TABLET 40 MG PO (08:49)
[2017-10-14] MEDS: METOPROLOL ER 25 MG TABLET PO (08:49)
--- NOTE | 2017-10-14 09:44 | PC.NURSE ---
pt c/o sternal pressure incr'd to 06/19 after amb w/staff to see his father who had been admitted during the night. stated some radiation to L shoulder, pressure slight incr, slight sob. pt declined o2 placement, stated nitro not effective, medicated w/2mg iv morphine w/ pain resoloved w/i 30minutes.
--- NOTE | 2017-10-14 12:32 | PM.PN.1 ---
Subjective Date Patient Seen: 10/14/17 Interval history: Patient with continued chest pain often on relieved with morphine but not nitroglycerin. His cardiac enzymes remain normal and EKG is without acute findings. Exam Vital Signs (past 8 hours): - 10/14/17 06:53 10/14/17 08:02 10/14/17 11:35 Temperature 97.8 F 97.1 F L 97.9 F Pulse Rate 60 59 L 65 Respiratory Rate 16 18 18 Blood Pressure 126/66 H 134/74 H 127/74 H Pulse Oximetry 93 95 94 Oxygen Delivery Method Room Air Oxygen Flow Rate 0 Narrative Exam Narrative: General: Alert and pleasant in no acute distress eating lunch Objective Labs Result Diagrams: 10/12/17 09:50 10/12/17 09:50 Labs: Laboratory Results - last 24 hr 10/14/17 04:30 Troponin I < 0.012 Assessment & Plan Plan: Assessment/Plan Narrative: 1. Chest pain. He has past medical history of [place] and 5 vessel bypass in 2007. Ruled out for acute myocardial infarction. Pharmacological stress test planned for this afternoon. Added proton pump inhibitor twice daily for possible gastric etiology. Added amlodipine 2.5 mg daily as an antianginal. Continue morphine as needed. Continue aspirin, beta-ida and statin therapy. Note relative bradycardia limits beta-ida titration. Hold metformin in the event he requires angiography. 2. Diabetes mellitus, type 2. Well controlled with hemoglobin A1c 7.0%. Continue routine insulin. Hold metformin as noted above. Provide sliding scale coverage and diabetic diet. 3. Hypertension. Continue routine medication. 4. Hyperlipidemia. Well controlled with LDL 64. Continue routine statin therapy. 5. History of pulmonary embolism. Currently therapeutic on warfarin. Continue current therapy and monitor. 6. Schizophrenia. Continue routine medication. Note that Zyprexa is associated with increased coronary events. 7. DVT prophylaxis: Addressed on warfarin. 8. Code status: Full code.
[2017-10-14] MEDS: WARFARIN 7.5 MG TABLET PO (16:28)
[2017-10-14] MEDS: ZIPRASIDONE HCL 40 MG 160 EACH PO (20:16)
[2017-10-14] MEDS: DIVALPROEX DR 250 MG TABLET 1500 MG PO (20:17)
[2017-10-14] MEDS: ATORVASTATIN 20 MG TABLET 40 MG PO (20:17)
[2017-10-15] VITALS (9 sets, daily range): BP systolic 114–126; BP diastolic 62–75; PULSE 54–69; RESP 18; TEMP 36.4–36.7; O2SAT 94–98
[2017-10-15] MEDS: ACETAMINOPHEN 325 MG TABLET 650 MG PO ×2 (05:56→08:27)
[2017-10-15] MEDS: PANTOPRAZOLE 40 MG TABLET PO (05:57)
[2017-10-15] MEDS: LEVOTHYROXINE 75 MCG TABLET PO (05:57)
[2017-10-15] MEDS: MORPHINE 2 MG/ML INJ IV (06:01)
[2017-10-15] MEDS: AMLODIPINE 2.5 MG TABLET PO (08:28)
[2017-10-15] MEDS: ASPIRIN EC 325 MG TABLET PO (08:30)
[2017-10-15] MEDS: BENZTROPINE 1 MG TABLET PO (08:31)
[2017-10-15] MEDS: DIVALPROEX DR 250 MG TABLET 500 MG PO (08:31)
[2017-10-15] MEDS: FENOFIBRATE 160 MG TABLET PO (08:32)
[2017-10-15] MEDS: FLUoxetine 20 MG CAPSULE 80 MG PO (08:32)
[2017-10-15] MEDS: FUROSEMIDE 40 MG TABLET 80 MG PO (08:32)
[2017-10-15] MEDS: GABAPENTIN 600 MG TABLET PO (08:33)
[2017-10-15] MEDS: hydroCHLOROthiazide 25 MG TABLET PO (08:33)
[2017-10-15] MEDS: METOPROLOL ER 25 MG TABLET PO (08:33)
[2017-10-15] MEDS: LISINOPRIL 20 MG TABLET 40 MG PO (08:34)
[2017-10-15] MEDS: ISOSORBIDE MONONITRATE ER 30 MG TABLET PO (08:40)
[2017-10-15] MEDS: INSULIN GLARGINE 100 UNIT/ML 3ML PEN 50 UNIT SUBCUT (08:42)
[2017-10-15] MEDS: INSULIN ASPART 100 UNIT/ML INSULN PEN SUBCUT (11:58)
[2017-10-15] MEDS: INSULIN ASPART 100 UNIT/ML INSULN PEN 35 UNIT SUBCUT (11:59)
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
--- NOTE | 2017-10-16 04:31 | DI.NM.S_ITS ---
DATE OF SERVICE: 10/14/2017 REFERRING PHYSICIAN: Julio Salmon MD PROCEDURE: Nuclear cardiac stress study. INDICATIONS: Mr. Pierre is a 57-year-old gentleman with a prior history of ischemic heart disease, admitted to [facility] with symptoms of chest discomfort. Nuclear cardiac stress study is performed to re-evaluate underlying ischemic heart disease. STRESS TEST: This patient was given a standard pharmacologic stress study with Lexiscan injection. He received 25.3 mCi of technetium-99 Myoview for the stress portion of the examination and returned 1 day later for the resting portion of the examination, receiving an additional 28.5 mCi. STRESS TEST: The patient's baseline EKG showed normal sinus rhythm with inferior Q waves notable. Following Lexiscan injection, no diagnostic EKG changes of ischemia, no symptoms of anginal chest discomfort. FINDINGS: Raw Data: Raw data images show overall adequate image quality. The patient is a large gentleman and count density is somewhat reduced as a result, but adequate images are obtained. Quantitative Gated SPECT Imaging: Gated images, again, are somewhat reduced quality because of the reduced count and obesity. The left ventricle appears moderately enlarged with an end diastolic volume of 174 cc. The ejection fraction calculates to 56% but appears moderately impaired. Quality of the examination does not allow adequate image quality to define regional wall motion abnormalities. Quantitative Perfusion SPECT Imaging: Both stress and rest myocardial perfusion imaging show a moderately dense area of hypoperfusion involving the inferior wall and inferior septum, extending out to the apex. There is also an area in the mid to distal anterolateral wall of moderate size with moderate hypoperfusion. Prone imaging shows similar abnormalities with some improvement in the inferior wall. I do not see any reversable area of hypoperfusion that would suggest ischemia. IMPRESSION: Abnormal nuclear cardiac stress study. A. Moderate left ventricular enlargement and probably [id number] left ventricular systolic dysfunction. B. Moderately large area of inferior and anteroseptal fixed hypoperfusions, consistent with inferior scar, which is consistent with this patient's EKG. There is also some suggestion of a fixed mid anterolateral region, which might be scar in the distribution of a ramus intermedius or diagonal vessel. Once again, I don't see reversable perfusion abnormality that would suggest significant residual ischemia. Clinical correlation suggested. Luis E Pierre - DL/fn/ts doc#: [id number]/job#: [id number] dd: 10/15/2017 15:49:00 dt: 10/16/2017 04:11:00 DICTATING MD/COPIES TO: Naveen Khan MD COPIES MNE: BLAKE
== END 2017-10-15 17:35 | disposition home or self-care (01) ==
LOC: ED 12:26 → AC 12:40
PROVIDERS: Admitting Provider Internal Medicine; Emergency Provider Emergency Medicine; PCP Urology; Visit Provider Internal Medicine
DX: R07.9 Chest pain, unspecified (principal); E11.9 Type 2 diabetes mellitus without complications; I10 Essential (primary) hypertension; I25.10 Atherosclerotic heart disease of native coronary artery without angina pectoris; E78.5 Hyperlipidemia, unspecified; F25.9 Schizoaffective disorder, unspecified; Z86.711 Personal history of pulmonary embolism; Z79.4 Long term (current) use of insulin; I25.2 Old myocardial infarction; Z79.01 Long term (current) use of anticoagulants; G89.21 Chronic pain due to trauma; Z87.891 Personal history of nicotine dependence
CPT/HCPCS: 36415; 36591; 36592; 71046; 78452; 80053; 80061; 81003; 82550; 82553; 82962; 83036; 83690; 83880; 84484; 85025; 85610; 85730; 93005; 93016; 93017; 93018; 93041; 99283; 99285; G0378; A9502; J2270; J2785

== ENCOUNTER 2017-12-31 15:52 | Emergency (ER) | payer OTHER, SELFPAY ==
[2017-10-12 15:11] VITALS: BMI 47.2
[2017-12-31 15:54] VITALS: BP 158/86; PULSE 90; RESP 20; TEMP 36.3; O2SAT 100; BMI 46.8
--- NOTE | 2017-12-31 16:39 | DI.RAD.S_ITS ---
PROCEDURE: XR CHEST 2V INDICATIONS: Chest pain, Shortness of breath, Cough TECHNIQUE: 2 views of the chest were acquired. COMPARISON: [facility], CR, XR CHEST 2V, 10/12/2017, 9:43. [facility], CR, XR CHEST 1V, 08/10/2017, 20:02. [facility], CR, CHEST 1 VIEW, 01/19/2017, 12:22. FINDINGS: Surgical changes and devices: Sternotomy wires, prior CABG. Lungs and pleura: No pleural effusions or pneumothorax. Lungs are mildly edematous. Mediastinum: Mediastinal contours are normal. Heart size is globally enlarged. Bones and chest wall: No suspicious bony abnormalities. Soft tissues appear unremarkable. IMPRESSION: Mild cardiomegaly, generalized mild pulmonary edema, prior CABG. A mild acute exacerbation of chronic CHF appears present. Dictated by: Daryl Coffman M.D. on 12/31/2017 at 17:06 Approved by: Daryl Coffman M.D. on 12/31/2017 at 17:07
--- NOTE | 2017-12-31 16:48 | ED.CHESTPAIN ---
HPI - Chest Pain General Chief Complaint: Chest Pain Stated Complaint: CHEST PAIN SORE THROAT SOB UNABLE TO SWALLOW Time Seen by Provider: 12/31/17 16:00 Source: patient Mode of arrival: ambulatory Limitations: no limitations History of Present Illness HPI narrative: 57-year-old male with strong cardiac history presents to the emergency department with a chief complaint of sharp, pleuritic-type chest pain with associated cough, runny nose and sore throat for the past few days. He denies any fever. He states he is coughing up yellowish sputum but denies any blood. He denies any shortness of breath. His chest pain started early this morning with a coughing spell. He states he has felt poorly for the past few days and has had a decreased appetite because it hurts him to swallow. He feels thirsty. He denies any change in his diuretic doses. He is unsure of exposure to ill persons MD complaint: chest pain Onset (ago): hour(s) Duration: intermittent Onset: other (With cough) Pain location: left chest and right chest Severity: moderate Quality: sharp Pain radiation: none Relieving factors: remaining still Exacerbating factors: inspiration and palpation Context: recent illness Associated symptoms: cough Treatments prior to arrival chest pain: none Related Data Home Medications Medication Instructions Recorded Confirmed aspirin 81 mg PO DAILY #0 03/17/11 12/31/17 hydrochlorothiazide 25 mg PO QDAY #0 12/25/16 12/31/17 metformin [Glucophage XR] 500 mg PO BIDCC #60 tab 12/25/16 12/31/17 tramadol 50 mg PO BID #0 12/25/16 12/31/17 warfarin [Coumadin] 10 mg PO SUMOWEFR #0 12/25/16 12/31/17 lisinopril 40 mg PO QDAY #0 01/19/17 12/31/17 warfarin [Coumadin] 7.5 mg PO TUTHSA #0 01/19/17 12/31/17 atorvastatin 40 mg PO BEDTIME 10/12/17 12/31/17 furosemide 80 mg PO DAILY 10/12/17 12/31/17 gabapentin 600 mg PO TID 10/12/17 12/31/17 insulin aspart U-100 35 units SUB-Q TIDWM 10/12/17 12/31/17 insulin glargine 50 units SUB-Q DAILY 10/12/17 12/31/17 isosorbide mononitrate 30 mg PO QAM 10/12/17 12/31/17 levothyroxine [Synthroid] 75 mcg PO DAILY 10/12/17 12/31/17 lidocaine-prilocaine 1 applic TOPICAL DIRECTED 10/12/17 12/31/17 nitroglycerin [Nitrostat] 0.4 mg SUBLINGUAL Q5 MIN PRN PRN 10/12/17 12/31/17 benztropine 1 mg PO BID 12/31/17 12/31/17 Previous Rx's Medication Instructions Recorded fenofibrate 160 mg PO QDAY #90 03/25/12 metoprolol succinate [Toprol XL] 25 mg PO QDAY #30 tab 12/26/16 divalproex 500 mg tablet,delayed 1,500 mg PO BEDTIME #270 tab 10/12/17 release divalproex 500 mg tablet,delayed 500 mg PO QAM #90 tab 10/12/17 release fluoxetine 40 mg capsule 80 mg PO QAM 90 Days #180 tab 10/12/17 ziprasidone 80 mg capsule 160 mg PO BEDTIME #14 cap 12/23/17 Allergies Allergy/AdvReac Type Severity Reaction Status Date / Time Penicillins [PENICILLINS] Allergy Severe Swelling Verified 11/09/17 08:19 of Lip/Tongue/Throat Review of Systems Review of Systems All systems reviewed & are unremarkable except as noted in HPI and below Constitutional Denies chills, Denies fever(s), Denies lethargy and Denies weakness Eyes Denies change in vision, Denies eye discharge, Denies irritation and Denies loss of vision ENT Ears, Nose, Mouth, and Throat: Denies change in voice, Denies neck pain and Reports sore throat Cardiovascular Denies chest pain, Denies irregular heart rhythm, Denies lightheadedness, Denies palpitations, Denies dyspnea, Denies dyspnea on exertion and Denies orthopnea Respiratory Denies cough, Denies dyspnea, Denies dyspnea on exertion and Denies wheezing Gastrointestinal Gastrointestinal: Denies abdominal pain, Denies change in bowel habits, Denies diarrhea, Denies nausea and Denies vomiting Genitourinary Denies hematuria, Denies flank pain, Denies urinary incontinence and Denies urinary urgency Musculoskeletal Denies neck pain Integumentary/Breasts Denies pruritus, Denies erythema, Denies rash and Denies wounds Neurologic Denies confusion, Denies loss of vision and Denies weakness Psychiatric Denies anxiety, Denies confusion, Denies depression, Denies homicidal ideation and Denies suicidal ideation Endocrine Denies palpitations Hematologic/Lymphatic Denies easy bruising Allergic/Immunologic Denies wheezing [facility] Medical History Chronic left shoulder pain (Acute) Pulmonary embolism (Acute) CAD (coronary artery disease) (Chronic) Diabetes type 2, controlled (Chronic) HTN (hypertension) (Chronic) Hyperlipidemia (Chronic) Schizoaffective disorder (Chronic) Surgical History Hx of CABG (Chronic) Social History household members: family lives independently: Yes caregiver/support person: Yes housing: house Smoking Status: Former smoker alcohol intake: never substance use type: does not use Exam Initial Vital Signs Initial Vital Signs: Vital Signs Temperature 97.4 F L 12/31/17 15:54 Pulse Rate 90 12/31/17 15:54 Respiratory Rate 20 12/31/17 15:54 Blood Pressure 158/86 H 12/31/17 15:54 Pulse Oximetry 100 12/31/17 15:54 Course Orders Ordered: ED Orders 12/31/17 16:39 XR chest 2V Stat EKG-12 Lead Stat 12/31/17 17:35 Complete Blood Count AUTO DIFF Stat Comprehensive Metabolic Panel Stat Influenza A and B by PCR Rapid Stat Lipase Stat Troponin & CK Cardiac Panel Stat Discontinued Medications Aspirin (Aspirin Chew) 324 mg PO NOW ONE Stop: 12/31/17 16:40 Last Admin: 12/31/17 17:16 Dose: 324 mg Sodium Chloride (Normal Saline 0.9%) 1,000 mls @ 1,000 mls/hr IV BOLUS ONE Stop: 12/31/17 17:38 Last Infusion: 12/31/17 18:45 Dose: 0 mls/hr Admin: 12/31/17 17:45 Dose: 1,000 mls/hr Ketorolac Tromethamine (Toradol) 15 mg IV NOW ONE Stop: 12/31/17 18:27 Last Admin: 12/31/17 18:35 Dose: 15 mg Vital Signs - 8 hr 12/31/17 15:54 12/31/17 18:32 Temperature 97.4 F L Pulse Rate 90 64 Respiratory Rate 20 20 Blood Pressure 158/86 H Blood Pressure [Right Arm] 142/66 H Pulse Oximetry 100 100 MDM - Chest Pain Differential Diagnosis Likely pneumothorax, stable angina, unstable angina pectoris, atypical chest pain, st elevation myocardial infarction, costochondritis, chest pain and biliary colic Medical Records Data Attestation: I reviewed the patient's medical records. Lab Data Attestation: I reviewed the patient's lab results. Result diagrams: 12/31/17 17:35 12/31/17 17:35 Lab Results 12/31/17 12/31/17 12/31/17 Range/Units 17:35 17:35 17:35 WBC 7.5 (4.5-11.0) X10^3/uL RBC 4.25 L (4.5-5.9) X10^6/uL Hgb 11.9 L (13.5-17.5) g/dL Hct 35.9 L (41-53) % MCV 84.5 (80-100) fL MCH 27.9 (26-34) PG MCHC 33.0 (30-36) % RDW 17.6 H (11.6-14.8) % Plt Count 186 (150-400) X10^3/uL Neut % (Auto) 56.7 (50-75) % Lymph % (Auto) 30.2 (25-40) % [place] % (Auto) 7.0 (3-14) % Eos % (Auto) 5.3 H (2-4) % Baso % (Auto) 0.8 (0-2) % Neut # (Auto) 4300 (8482-3327) /uL Sodium 146 H (137-145) mmol/L Potassium 4.0 (3.4-5.1) mmol/L Chloride 107 (98-107) mmol/L Carbon Dioxide 28 (22-32) mmol/L BUN 12 (9-20) mg/dL Creatinine 1.10 (0.66-1.25) mg/dL Estimated GFR > 60.0 (>60) mL/min BUN/Creatinine Ratio 10.9 (6-22) Glucose 79 (70-100) mg/dL Calcium 8.2 L (8.4-10.2) mg/dL Total Bilirubin 0.3 (0.2-1.3) mg/dL AST 19 (17-59) IU/L ALT 24 (21-72) IU/L Alkaline Phosphatase 67 (38-126) U/L Total Creatine Kinase 173 H (55-170) U/L CK-MB (CK-2) 1.01 (<2.37) ng/mL CK-MB (CK-2) Rel Index 0.6 L (1.5-5.0) % Troponin I < 0.012 (0.01-0.034) ng/mL Total Protein 6.9 (6.3-8.2) g/dL Albumin 3.7 (3.5-5.0) g/dL Globulin 3.2 (1.7-4.1) g/dL Albumin/Globulin Ratio 1.2 (1.0-2.8) Lipase 18 L (23-300) U/L Influenza A & B (PCR) Negative (Negative) Point of Care Testing Rapid Strep A Negative ECG Data Attestation: I personally reviewed and interpreted this ECG as follows: Prior ECG tracings: not available for review Interpretation: normal sinus non ischemic, no ST/T wave abnormalities MDM Narrative Medical decision making narrative: Patient complains of nasal congestion and sore throat with difficulty swallowing as well as the occasional cough. This morning he developed sharp and stabbing chest pain with cough but denies any hemoptysis. He has had some sputum production but denies any significance. He has had no fever. His chest pain is sharp and stabbing and worse with deep breath, motion or palpation. His symptoms are most likely can consistent with a viral upper respiratory infection and associated costochondritis though mi was also considered. His symptoms are not classically ischemic, his EKG is acutely unremarkable, and troponin is normal nearly 12 hr after the onset of his symptoms. PE also considered however the likelihood of a clinically significant PE is unlikely given normal labs and no evidence of strain EKG or labs. Furthermore the patient is therapeutic on his anticoagulation Discharge Plan Departure Patient Disposition: Home Clinical Impression: Atypical chest pain, Acute costochondritis, Upper respiratory infection, viral Instructions: Common Cold, DI for Atypical Chest Pain, DI for Costochondritis Activity Restrictions/Additional Instructions: *You have been diagnosed with [ acute costochondritis and viral upper respiratory infection ] *What to do: * continue to take medications as directed *Follow up with your primary care provider in 2-3 days, call for an appointment. Let them know you were seen in the Emergency Department and that we ask that you be seen in follow up *Return to ER if you should have any new, worsening or concerning symptoms, such as [shortness of breath, worsening chest pain, sweating, nausea and vomiting, other bothersome symptoms ] Prescriptions: No Action fluoxetine 40 mg capsule 80 mg PO QAM 90 Days Qty: 180 RF: 3 divalproex [Depakote] 500 mg tablet,delayed release (DR/EC) 500 mg PO QAM Qty: 90 RF: 3 divalproex [Depakote] 500 mg tablet,delayed release (DR/EC) 1,500 mg PO BEDTIME Qty: 270 RF: 3 aspirin 81 mg Tablet,Delayed Release (Dr/Ec) 81 mg PO DAILY Qty: 0 RF: 0 fenofibrate 160 MG tablet 160 mg PO QDAY Qty: 90 RF: 3 hydrochlorothiazide 25 MG tablet 25 mg PO QDAY Qty: 0 RF: 0 tramadol 50 MG tablet 50 mg PO BID Qty: 0 RF: 0 warfarin [Coumadin] 5 MG tablet 10 mg PO SUMOWEFR Qty: 0 RF: 0 metformin [Glucophage XR] 500 MG tablet extended release 24 hr 500 mg PO BIDCC Qty: 60 RF: 0 metoprolol succinate [Toprol XL] 25 MG tablet extended release 24 hr 25 mg PO QDAY Qty: 30 RF: 0 lisinopril 40 MG tablet 40 mg PO QDAY Qty: 0 RF: 0 warfarin [Coumadin] 7.5 MG tablet 7.5 mg PO TUTHSA Qty: 0 RF: 0 ziprasidone HCl 80 mg capsule 160 mg PO BEDTIME Qty: 14 RF: 0 lidocaine-prilocaine 2.5-2.5 % Cream 1 applic Topical DIRECTED RF: 0 nitroglycerin [Nitrostat] 0.4 mg Tablet, Sublingual 0.4 mg Sublingual Q5 MIN PRN PRN (Reason: Chest Pain) RF: 0 insulin glargine 100 unit/mL (3 mL) Insulin Pen 50 units Sub-Q DAILY RF: 0 atorvastatin 40 mg Tablet 40 mg PO BEDTIME RF: 0 gabapentin 600 mg Tablet 600 mg PO TID RF: 0 isosorbide mononitrate 30 mg Tablet Extended Release 24 Hr 30 mg PO QAM RF: 0 levothyroxine [Synthroid] 75 mcg Tablet 75 mcg PO DAILY RF: 0 furosemide 80 mg Tablet 80 mg PO DAILY RF: 0 insulin aspart U-100 100 unit/mL Insulin Pen 35 units Sub-Q TIDWM RF: 0 benztropine 1 mg tablet 1 mg PO BID RF: 0 Referrals: Jocelynn Juárez [Primary Care Provider] -
[2017-12-31] MEDS: ASPIRIN 81 MG TAB 324 MG PO (17:16)
[2017-12-31] MEDS: SODIUM CHLORIDE 0.9% 1,000 ML 1000 ML IV (17:45)
[2017-12-31 18:13] LABS: Add Manual Diff / Slide Review NO; Basophils Percent Auto 0.8 % (0-2); Eosinophils Percent Auto 5.3 % (2-4); Hematocrit 35.9 % (41-53); Hemoglobin 11.9 g/dL (13.5-17.5); Lymphocytes Percent Auto 30.2 % (25-40); Mean Corpuscular Hemoglobin 27.9 PG (26-34); Mean Corpuscular Volume 84.5 fL (80-100); Neutrophils Absolute Auto 4300 /uL (3000-5900); Neutrophils Percent Auto 56.7 % (50-75); Platelet Count 186 X10^3/uL (150-400); Red Blood Cell Count 4.25 X10^6/uL (4.5-5.9); Red Cell Distribution Width 17.6 % (11.6-14.8); White Blood Cell Count 7.5 X10^3/uL (4.5-11.0)
[2017-12-31 18:26] LABS: Alanine Aminotransferase 24 IU/L (21-72); Albumin 3.7 g/dL (3.5-5.0); Albumin Globulin Ratio 1.2 (1.0-2.8); Alkaline Phosphatase 67 U/L (38-126); Aspartate Aminotransferase 19 IU/L (17-59); BUN Creatinine Ratio 10.9 (6-22); Bilirubin Total 0.3 mg/dL (0.2-1.3); Blood Urea Nitrogen 12 mg/dL (9-20); Calcium 8.2 mg/dL (8.4-10.2); Carbon Dioxide 28 mmol/L (22-32); Chloride 107 mmol/L (98-107); Creatine Kinase 173 U/L (55-170); Estimated Glomerular Filt Rate > 60.0 mL/min (>60); Globulin 3.2 g/dL (1.7-4.1); Glucose 79 mg/dL (70-100); HEMOLYSIS 21 (0-50); Lipase 18 U/L (23-300); Sodium 146 mmol/L (137-145); Total Protein 6.9 g/dL (6.3-8.2)
[2017-12-31 18:32] VITALS: BP 142/66; PULSE 64; RESP 20; O2SAT 100
[2017-12-31] MEDS: KETOROLAC 60 MG/2 ML VIAL 15 MG IV (18:35)
[2017-12-31 18:39] LABS: Troponin I < 0.012 ng/mL (0.01-0.034)
[2017-12-31 18:42] LABS: CKMB % Relative Index 0.6 % (1.5-5.0); Creatine Kinase MB 1.01 ng/mL (<2.37)
[2017-12-31 18:56] LABS: Influenza A and B by PCR Rapid Negative (Negative)
[2017-12-31 19:15] VITALS: BP 137/66; PULSE 66; RESP 18; O2SAT 99
== END 2017-12-31 19:17 | disposition home or self-care (01) ==
PROVIDERS: Emergency Provider Emergency Medicine; PCP Urology
DX: M94.0 Chondrocostal junction syndrome [Tietze] (principal); J06.9 Acute upper respiratory infection, unspecified; R07.89 Other chest pain
CPT/HCPCS: 36591; 71046; 80053; 82550; 82553; 83690; 84484; 85025; 87400; 87880; 93005; 96361; 96374; 99283; 99285; J1885

== ENCOUNTER 2018-01-03 13:46 | Emergency (ER) | payer OTHER, SELFPAY ==
[2017-10-12 15:11] VITALS: BMI 47.2
[2018-01-03] VITALS (10 sets, daily range): BP systolic 119–166; BP diastolic 68–89; PULSE 75–84; RESP 19–25; TEMP 36.8; O2SAT 92–100
--- NOTE | 2018-01-03 13:51 | ED.NEUROSD ---
HPI - Neuro Symptoms/Deficit General Chief Complaint: Neuro Symptoms/Deficit Stated Complaint: GLF last night,dizziness,unsteady Time Seen by Provider: 01/03/18 13:51 Source: patient Mode of arrival: ambulatory Limitations: no limitations History of Present Illness HPI Narrative: 57-year-old male brought to the emergency department for multiple episodes of falling and vertigo. He initially was a code stroke secondary to his vertigo, inability to move his right leg, and multiple falls on Coumadin. He does have a history of coronary artery disease. Has also had a pulmonary embolism. He is on Coumadin. Patient was seen here the emergency department a couple days ago and was diagnosed with upper respiratory infection. He was not given any medications that time. He states that last evening he did have an onset of vertigo. Was when he was standing up. It did cause him to fall. He did hit his head. No loss of consciousness. States that he has had vertigo since then. It only happens when he stands up. It is better when he lays down. Again this morning he had another episode of vertigo where he fell and hit his head on the sidewalk. Again no loss of consciousness. He also states that he has had chest pressure for the past several months and also shortness of breath for the past couple days. Related Data Home Medications Medication Instructions Recorded Confirmed aspirin 81 mg PO DAILY #0 03/17/11 01/03/18 hydrochlorothiazide 25 mg PO QDAY #0 12/25/16 01/03/18 metformin [Glucophage XR] 500 mg PO BIDCC #60 tab 12/25/16 01/03/18 tramadol 50 mg PO BID #0 12/25/16 01/03/18 warfarin [Coumadin] 10 mg PO SUMOWEFR #0 12/25/16 01/03/18 lisinopril 40 mg PO QDAY #0 01/19/17 01/03/18 warfarin [Coumadin] 7.5 mg PO TUTHSA #0 01/19/17 01/03/18 atorvastatin 40 mg PO BEDTIME 10/12/17 01/03/18 furosemide 80 mg PO DAILY 10/12/17 01/03/18 gabapentin 600 mg PO TID 10/12/17 01/03/18 insulin aspart U-100 35 units SUB-Q TIDWM 10/12/17 01/03/18 insulin glargine 50 units SUB-Q DAILY 10/12/17 01/03/18 isosorbide mononitrate 30 mg PO QAM 10/12/17 01/03/18 levothyroxine [Synthroid] 75 mcg PO DAILY 10/12/17 01/03/18 lidocaine-prilocaine 1 applic TOPICAL DIRECTED 10/12/17 01/03/18 nitroglycerin [Nitrostat] 0.4 mg SUBLINGUAL Q5 MIN PRN PRN 10/12/17 01/03/18 benztropine 1 mg PO BID 12/31/17 01/03/18 Previous Rx's Medication Instructions Recorded fenofibrate 160 mg PO QDAY #90 03/25/12 metoprolol succinate [Toprol XL] 25 mg PO QDAY #30 tab 12/26/16 divalproex 500 mg tablet,delayed 1,500 mg PO BEDTIME #270 tab 10/12/17 release divalproex 500 mg tablet,delayed 500 mg PO QAM #90 tab 10/12/17 release fluoxetine 40 mg capsule 80 mg PO QAM 90 Days #180 tab 10/12/17 ziprasidone 80 mg capsule 160 mg PO BEDTIME #14 cap 12/23/17 Allergies Allergy/AdvReac Type Severity Reaction Status Date / Time Penicillins [PENICILLINS] Allergy Severe Swelling Verified 11/09/17 08:19 of Lip/Tongue/Throat Review of Systems Constitutional Denies fatigue, Denies fever(s), Reports frequent falls, Denies headache(s) and Denies malaise ENT Ears, Nose, Mouth, and Throat: Reports vertigo, Reports dizziness and Denies headache(s) Cardiovascular Reports chest pain, Denies diaphoresis, Denies syncope, Denies edema, Denies irregular heart rhythm, Denies palpitations and Reports dyspnea Respiratory Reports dyspnea Gastrointestinal Gastrointestinal: Denies change in bowel habits, Denies diarrhea, Denies nausea and Denies vomiting Genitourinary Denies dysuria Musculoskeletal Reports abnormal gait, Denies myalgias, Denies arthralgias and Denies tingling Integumentary/Breasts Denies lesions and Denies rash Neurologic Reports abnormal gait, Denies confusion, Reports vertigo, Reports dizziness, Denies syncope, Reports frequent falls, Denies headache(s), Denies other visual disturbances, Denies radicular pain and Denies tingling Psychiatric Denies confusion Endocrine Denies fatigue and Denies palpitations Hematologic/Lymphatic Denies easy bleeding and Denies easy bruising [facility] Medical History Chronic left shoulder pain (Acute) Pulmonary embolism (Acute) CAD (coronary artery disease) (Chronic) Diabetes type 2, controlled (Chronic) HTN (hypertension) (Chronic) Hyperlipidemia (Chronic) Schizoaffective disorder (Chronic) Surgical History Hx of CABG (Chronic) Family History Mother Coronary artery disease Father No problems noted. Social History household members: family lives independently: Yes caregiver/support person: Yes housing: house Smoking Status: Former smoker alcohol intake: never substance use type: does not use Exam Initial Vital Signs Initial Vital Signs: Vital Signs Pulse Rate 83 01/03/18 14:00 Blood Pressure 120/70 01/03/18 14:00 Pulse Oximetry 92 01/03/18 14:00 Const General: cooperative, well developed, well groomed and No acute distress Orientation: alert, awake and oriented x3 HENMN Head: normal to inspection, normocephalic, atraumatic and No abrasion Ears: hearing grossly normal bilaterally Nose: external nose normal Face and sinus: normal facial exam Chest Chest: normal inspection of the chest and normal palpation of entire chest wall Resp Effort & Inspection: normal respiratory effort Auscultation: clear to auscultation bilaterally Cardio Rate: regular rate Rhythm: regular rhythm Heart Sounds: no murmurs Pulses: radial pulses present GI Inspection: non-distended Palpation: soft, No firm, No rigid and No tender Back/Spine/Pelvis Cervical Spine: No cervical muscular tenderness, No pain with cervical ROM and No cervical ROM abnormal Thoracic/Lumbar Spine: No paraspinal tenderness and No thoracic spinal tenderness Skin Lesions: no lesions Rashes: no rashes Neuro General: alert, awake and oriented x3 Cranial Nerves: CN's II-XI intact bilaterally Cognition: normal cognition Speech: speech normal Gait: other ( unable to ambulate secondary to the vertigo) Motor: muscle tone normal throughout Sensory Exam: no sensory deficits noted Coordination: uumrbr-bk-hkwv test normal Extrem General: normal to inspection and capillary refill normal Psych Appearance: grossly normal and well kempt Scores NIH Stroke Scale Level of Conciousness: Alert, keenly responsive Ask month/age: Answers both questions correctly. Open/close eyes, close hand: Performs both tasks correctly Best gaze horizontal: Normal Visual cleary: No visual loss Facial palsy: Normal symetrical movement Left arm drift: No drift for full 10 sec Right arm drift: No drift for full 10 sec Left leg drift: No drift for full 10 sec Right leg drift: No drift for full 10 sec Limb ataxia: Absent Sensory on face/arms/legs: Normal, no sensory loss Best language: No aphasia, normal Dysarthria: Normal Extinction or inattention: No abnormality Total NIH Stroke scale score: 0 Course Orders Ordered: ED Orders 01/03/18 13:53 EKG-12 Lead Stat 01/03/18 13:59 CT head/brain wo con Stat 01/03/18 14:01 B Type Natriuretic Peptide Stat Basic Metabolic Panel Stat Complete Blood Count AUTO DIFF Stat Ethanol (ETOH) Stat Partial Thromboplastin Time Stat Prothrombin Time INR Stat Troponin I Stat 01/03/18 14:23 CT angio head and neck Stat Discontinued Medications Dextrose (D50w) 25 gm IV NOW ONE Stop: 01/03/18 13:55 Last Admin: 01/03/18 14:18 Dose: 25 gm Sodium Chloride (Normal Saline 0.9%) 1,000 mls @ 500 mls/hr IV BOLUS ONE Stop: 01/03/18 16:36 Last Infusion: 01/03/18 16:42 Dose: 0 mls/hr Admin: 01/03/18 14:54 Dose: 500 mls/hr Vital Signs - 8 hr 01/03/18 14:00 01/03/18 14:30 01/03/18 15:00 Temperature Pulse Rate 83 84 78 Respiratory Rate Blood Pressure [Right Arm] 120/70 130/68 119/71 Pulse Oximetry 92 92 94 01/03/18 15:30 01/03/18 16:00 01/03/18 16:30 Temperature Pulse Rate 77 76 76 Respiratory Rate 25 H Blood Pressure [Right Arm] 155/81 H 154/88 H 157/89 H Pulse Oximetry 95 93 95 01/03/18 16:50 01/03/18 17:00 Temperature 98.3 F Pulse Rate 75 Respiratory Rate 19 Blood Pressure [Right Arm] 166/77 H Pulse Oximetry 95 MDM - Neuro Symptoms/Deficit Medical Records Attestation: I reviewed the patient's medical records. Lab Data Attestation: I reviewed the patient's lab results. Result diagrams: 01/03/18 14:01 01/03/18 14:01 Lab Results 01/03/18 01/03/18 01/03/18 Range/Units 14: 14: 14: WBC 8.7 (4.5-11.0) X10^3/uL RBC 4.16 L (4.5-5.9) X10^6/uL Hgb 11.6 L (13.5-17.5) g/dL Hct 34.9 L (41-53) % MCV 83.9 (80-100) fL MCH 27.9 (26-34) PG MCHC 33.2 (30-36) % RDW 17.5 H (11.6-14.8) % Plt Count 195 (150-400) X10^3/uL Neut % (Auto) 68.5 (50-75) % Lymph % (Auto) 22.6 L (25-40) % [place] % (Auto) 5.8 (3-14) % Eos % (Auto) 2.4 (2-4) % Baso % (Auto) 0.7 (0-2) % Neut # (Auto) 5900 (9359-9898) /uL PT 50.0 H (10.1-12.7) SECONDS INR 4.5 H (0.9-1.3) APTT 44 H D (26.4-36.2) SECONDS Sodium 142 (137-145) mmol/L Potassium 4.1 (3.4-5.1) mmol/L Chloride 105 (98-107) mmol/L Carbon Dioxide 27 (22-32) mmol/L BUN 11 (9-20) mg/dL Creatinine 1.30 H (0.66-1.25) mg/dL Estimated GFR 56.9 L (>60) mL/min BUN/Creatinine Ratio 8.5 (6-22) Glucose 80 (70-100) mg/dL Calcium 9.1 (8.4-10.2) mg/dL Troponin I < 0.012 (0.01-0.034) ng/mL B-Natriuretic Peptide (<100) Ethyl Alcohol < 10 mg/dL 01/03/18 Range/Units 14:01 WBC (4.5-11.0) X10^3/uL RBC (4.5-5.9) X10^6/uL Hgb (13.5-17.5) g/dL Hct (41-53) % MCV (80-100) fL MCH (26-34) PG MCHC (30-36) % RDW (11.6-14.8) % Plt Count (150-400) X10^3/uL Neut % (Auto) (50-75) % Lymph % (Auto) (25-40) % [place] % (Auto) (3-14) % Eos % (Auto) (2-4) % Baso % (Auto) (0-2) % Neut # (Auto) (7096-9077) /uL PT (10.1-12.7) SECONDS INR (0.9-1.3) APTT (26.4-36.2) SECONDS Sodium (137-145) mmol/L Potassium (3.4-5.1) mmol/L Chloride (98-107) mmol/L Carbon Dioxide (22-32) mmol/L BUN (9-20) mg/dL Creatinine (0.66-1.25) mg/dL Estimated GFR (>60) mL/min BUN/Creatinine Ratio (6-22) Glucose (70-100) mg/dL Calcium (8.4-10.2) mg/dL Troponin I (0.01-0.034) ng/mL B-Natriuretic Peptide 165.0 H (<100) Ethyl Alcohol mg/dL Point of Care Testing Glucose POC [address] scan - chest: Radiologist's impression: [address] [address] [address] Scan Report Signed Patient: Luis E Pierre RMR#: [id number] : 1Acct:[id number] Age/Sex: 57 / MDate of Service: 01/03/18 Loc: ED Accession Number: [id number] Procedure: CT head/brain wo con Ordering Provider: Ramesh Jimenez D.O. PROCEDURE: CT HEAD/BRAIN WO CON INDICATIONS: possible stroke, dizzy TECHNIQUE: Noncontrast 4.5 mm thick angled axial sections acquired from the foramen magnum to the vertex, with coronal and sagittal reformats. For radiation dose reduction, the following was used: automated exposure control, adjustment of mA and/or kV according to patient size. COMPARISON: None. FINDINGS: Image quality: Excellent. CSF spaces: Basal cisterns are patent. No extra-axial fluid collections. Ventricles are normal in size and shape. Brain: No midline shift. No intracranial masses or hemorrhage. Wade-white matter interface is normal. Skull and face: Calvarium and visualized facial bones are intact, without suspicious lesions. Sinuses: Visualized sinuses and mastoids are clear. IMPRESSION: Unremarkable head CT. No acute intracranial hemorrhage. Dictated by: Gold Carreon M.D. on 01/03/2018 at 13:01 Approved by: Gold Carreon M.D. on 01/03/2018 at 13:04 CTA of the head neck: Radiologist's impression: [place] [address] CT Scan Report Signed Patient: Luis E Pierre RMR#: [id number] : 1Acct:[id number] Age/Sex: 57 / MDate of Service: 01/03/18 Loc: ED Accession Number: [id number] Procedure: CT angio head and neck Ordering Provider: Ramesh Jimenez D.O. PROCEDURE: CT ANGIO HEAD AND NECK INDICATIONS: confusion TECHNIQUE: Pre-contrast 4.5 mm thick sections acquired from the foramen magnum to the vertex. After the administration of intravenous contrast, 1 mm thick sections acquired from the aortic arch through the [place] of Mathis. Post-contrast 4.5 mm thick sections then re-acquired from the foramen magnum to the vertex. 3-dimensional gcspdux-joyqbefcj-sbbecevluc (MIP) and/or volume rendering reformats were acquired of the central intracranial vasculature and neck separately. COMPARISON: [facility], CT, CT HEAD/BRAIN WO CON, 01/03/2018, 13:45. FINDINGS: Image quality: Excellent. BRAIN: CSF spaces: Ventricles are normal in size and shape. Basal cisterns are patent. No extra-axial fluid collections. Brain: No midline shift. No intracranial bleeds or masses. Wade-white matter interface appears intact. Skull and face: Calvarium and facial bones appear intact, without suspicious lesions. Orbits appear normal. Sinuses: There is a left maxillary mucous retention cyst or polyp.. HEAD CT ANGIOGRAPHY: Anterior circulation: Intracranial internal carotid arteries are normal in size and flow. The flow within the paired anterior cerebral arteries is normal and symmetric. The flow within the middle cerebral arteries is normal and symmetric. The anterior communicating artery is seen. No aneurysms are seen. Posterior circulation: Visualized portions of the vertebral arteries demonstrate normal caliber, and join to form a normal appearing basilar artery. Flow within the posterior cerebral arteries is normal and symmetric. No aneurysms are seen. NECK CT ANGIOGRAPHY: Carotid system: The great vessels demonstrate a conventional anatomy as they arise from the aortic arch. The origins of the common carotid arteries appear patent. The common carotid arteries demonstrate normal caliber and courses. The bifurcation regions are both widely patent. The internal carotid arteries demonstrate normal calibers and courses. Posterior circulation: The origins of the vertebral arteries both appear widely patent. The more superior extracranial portions of both vertebral arteries also demonstrate normal courses and calibers. They join to form a normal appearing basilar artery. Soft tissues: Visualized neck soft tissues demonstrate no suspicious abnormalities. Bones: Straightening of the normal cervical lordosis and mid lower discogenic change. Bilateral facet arthropathy. IMPRESSION: No intracranial focal stenosis or occlusion. Bilateral carotid calcifications. No significant ICA stenosis. Multilevel cervical disc degeneration. Left maxillary mucous retention cyst or polyp. Any quantitative measurements of stenosis were performed using NASCET criteria. Dictated by: Ambrose Waterman M.D. on 01/03/2018 at 15:08 Approved by: Ambrose Waterman M.D. on 01/03/2018 at 15:16 ECG Data Attestation: I personally reviewed and interpreted this ECG as follows: Prior ECG tracings: not available for review Interpretation: sinus rhythm ventricular rate 82 Left axis deviation Normal QRS normal QTC nonspecific ST T wave changes MDM Narrative Medical decision making narrative: patient with negative head CT and CTA of head neck. Patient vertigo improved with lying flat. It is worse when sitting up. Patient was unable to stand at bedside. Patient has been complaining of chest pressure for the past several months. Troponin negative today. BNP relatively unremarkable. Secondary to his history of known vascular disease and coronary artery disease and the vertigo that is not reproducible with the [facility] I do have some suspicion for a cerebellar infarct. Feel like the patient would benefit from an MRI. I talk with Dr. Mandujano our hospitalist at this hospital who states that secondary to his cardiac history and his history of diabetes that the patient should be transferred to a place that has a grab operator. I discussed the case with Manuel who was able to set up an accepting physician of Dr. Haas at [place] who accepts the patient. I discussed the transfer with the patient. He expressed understanding and agreement. Discharge Plan Departure Patient Disposition: [facility] Clinical Impression: Vertigo, Chest pain Prescriptions: No Action fluoxetine 40 mg capsule 80 mg PO QAM 90 Days Qty: 180 RF: 3 divalproex [Depakote] 500 mg tablet,delayed release (DR/EC) 500 mg PO QAM Qty: 90 RF: 3 divalproex [Depakote] 500 mg tablet,delayed release (DR/EC) 1,500 mg PO BEDTIME Qty: 270 RF: 3 aspirin 81 mg Tablet,Delayed Release (Dr/Ec) 81 mg PO DAILY Qty: 0 RF: 0 fenofibrate 160 MG tablet 160 mg PO QDAY Qty: 90 RF: 3 hydrochlorothiazide 25 MG tablet 25 mg PO QDAY Qty: 0 RF: 0 tramadol 50 MG tablet 50 mg PO BID Qty: 0 RF: 0 warfarin [Coumadin] 5 MG tablet 10 mg PO SUMOWEFR Qty: 0 RF: 0 metformin [Glucophage XR] 500 MG tablet extended release 24 hr 500 mg PO BIDCC Qty: 60 RF: 0 metoprolol succinate [Toprol XL] 25 MG tablet extended release 24 hr 25 mg PO QDAY Qty: 30 RF: 0 lisinopril 40 MG tablet 40 mg PO QDAY Qty: 0 RF: 0 warfarin [Coumadin] 7.5 MG tablet 7.5 mg PO TUTHSA Qty: 0 RF: 0 ziprasidone HCl 80 mg capsule 160 mg PO BEDTIME Qty: 14 RF: 0 lidocaine-prilocaine 2.5-2.5 % Cream 1 applic Topical DIRECTED RF: 0 nitroglycerin [Nitrostat] 0.4 mg Tablet, Sublingual 0.4 mg Sublingual Q5 MIN PRN PRN (Reason: Chest Pain) RF: 0 insulin glargine 100 unit/mL (3 mL) Insulin Pen 50 units Sub-Q DAILY RF: 0 atorvastatin 40 mg Tablet 40 mg PO BEDTIME RF: 0 gabapentin 600 mg Tablet 600 mg PO TID RF: 0 isosorbide mononitrate 30 mg Tablet Extended Release 24 Hr 30 mg PO QAM RF: 0 levothyroxine [Synthroid] 75 mcg Tablet 75 mcg PO DAILY RF: 0 furosemide 80 mg Tablet 80 mg PO DAILY RF: 0 insulin aspart U-100 100 unit/mL Insulin Pen 35 units Sub-Q TIDWM RF: 0 benztropine 1 mg tablet 1 mg PO BID RF: 0
--- NOTE | 2018-01-03 13:59 | DI.CT.S_ITS ---
PROCEDURE: CT HEAD/BRAIN WO CON INDICATIONS: possible stroke, dizzy TECHNIQUE: Noncontrast 4.5 mm thick angled axial sections acquired from the foramen magnum to the vertex, with coronal and sagittal reformats. For radiation dose reduction, the following was used: automated exposure control, adjustment of mA and/or kV according to patient size. COMPARISON: None. FINDINGS: Image quality: Excellent. CSF spaces: Basal cisterns are patent. No extra-axial fluid collections. Ventricles are normal in size and shape. Brain: No midline shift. No intracranial masses or hemorrhage. Wade-white matter interface is normal. Skull and face: Calvarium and visualized facial bones are intact, without suspicious lesions. Sinuses: Visualized sinuses and mastoids are clear. IMPRESSION: Unremarkable head CT. No acute intracranial hemorrhage. Dictated by: Glod Carreon M.D. on 01/03/2018 at 13:01 Approved by: Gold Carreon M.D. on 01/03/2018 at 13:04
[2018-01-03 14:14] LABS: Add Manual Diff / Slide Review NO; Basophils Percent Auto 0.7 % (0-2); Eosinophils Percent Auto 2.4 % (2-4); Hematocrit 34.9 % (41-53); Hemoglobin 11.6 g/dL (13.5-17.5); Lymphocytes Percent Auto 22.6 % (25-40); Mean Corpuscular HGB Conc 33.2 % (30-36); Mean Corpuscular Hemoglobin 27.9 PG (26-34); Mean Corpuscular Volume 83.9 fL (80-100); Monocytes Percent Auto 5.8 % (3-14); Neutrophils Absolute Auto 5900 /uL (3000-5900); Neutrophils Percent Auto 68.5 % (50-75); Platelet Count 195 X10^3/uL (150-400); Red Blood Cell Count 4.16 X10^6/uL (4.5-5.9); Red Cell Distribution Width 17.5 % (11.6-14.8); White Blood Cell Count 8.7 X10^3/uL (4.5-11.0)
[2018-01-03 14:18] LABS: INR 4.5 (0.9-1.3)
[2018-01-03] MEDS: DEXTROSE 50 % IN WATER 25 GM/50 ML SYRINGE IV (14:18)
[2018-01-03 14:21] LABS: PTT Partial Thromboplastin Tim 44 SECONDS (26.4-36.2)
--- NOTE | 2018-01-03 14:23 | DI.CT.S_ITS ---
PROCEDURE: CT ANGIO HEAD AND NECK INDICATIONS: confusion TECHNIQUE: Pre-contrast 4.5 mm thick sections acquired from the foramen magnum to the vertex. After the administration of intravenous contrast, 1 mm thick sections acquired from the aortic arch through the [place] of [place]. Post-contrast 4.5 mm thick sections then re-acquired from the foramen magnum to the vertex. 3-dimensional tngvofg-flcjtqajm-dvmgfvhxvt (MIP) and/or volume rendering reformats were acquired of the central intracranial vasculature and neck separately. COMPARISON: [facility], CT, CT HEAD/BRAIN WO CON, 01/03/2018, 13:45. FINDINGS: Image quality: Excellent. BRAIN: CSF spaces: Ventricles are normal in size and shape. Basal cisterns are patent. No extra-axial fluid collections. Brain: No midline shift. No intracranial bleeds or masses. Wade-white matter interface appears intact. Skull and face: Calvarium and facial bones appear intact, without suspicious lesions. Orbits appear normal. Sinuses: There is a left maxillary mucous retention cyst or polyp.. HEAD CT ANGIOGRAPHY: Anterior circulation: Intracranial internal carotid arteries are normal in size and flow. The flow within the paired anterior cerebral arteries is normal and symmetric. The flow within the middle cerebral arteries is normal and symmetric. The anterior communicating artery is seen. No aneurysms are seen. Posterior circulation: Visualized portions of the vertebral arteries demonstrate normal caliber, and join to form a normal appearing basilar artery. Flow within the posterior cerebral arteries is normal and symmetric. No aneurysms are seen. NECK CT ANGIOGRAPHY: Carotid system: The great vessels demonstrate a conventional anatomy as they arise from the aortic arch. The origins of the common carotid arteries appear patent. The common carotid arteries demonstrate normal caliber and courses. The bifurcation regions are both widely patent. The internal carotid arteries demonstrate normal calibers and courses. Posterior circulation: The origins of the vertebral arteries both appear widely patent. The more superior extracranial portions of both vertebral arteries also demonstrate normal courses and calibers. They join to form a normal appearing basilar artery. Soft tissues: Visualized neck soft tissues demonstrate no suspicious abnormalities. Bones: Straightening of the normal cervical lordosis and mid lower discogenic change. Bilateral facet arthropathy. IMPRESSION: No intracranial focal stenosis or occlusion. Bilateral carotid calcifications. No significant ICA stenosis. Multilevel cervical disc degeneration. Left maxillary mucous retention cyst or polyp. Any quantitative measurements of stenosis were performed using NASCET criteria. Dictated by: Ambrose Waterman M.D. on 01/03/2018 at 15:08 Approved by: Ambrose Waterman M.D. on 01/03/2018 at 15:16
[2018-01-03 14:31] LABS: BUN Creatinine Ratio 8.5 (6-22); Blood Urea Nitrogen 11 mg/dL (9-20); Calcium 9.1 mg/dL (8.4-10.2); Carbon Dioxide 27 mmol/L (22-32); Chloride 105 mmol/L (98-107); Estimated Glomerular Filt Rate 56.9 mL/min (>60); Ethanol (ETOH) < 10 mg/dL; Glucose 80 mg/dL (70-100); HEMOLYSIS < 15 (0-50); Potassium 4.1 mmol/L (3.4-5.1); Sodium 142 mmol/L (137-145)
[2018-01-03] MEDS: SODIUM CHLORIDE 0.9% 1,000 ML 500 ML IV (14:54)
[2018-01-03 16:25] LABS: Troponin I < 0.012 ng/mL (0.01-0.034)
== END 2018-01-03 18:57 | disposition short-term general hospital (02) ==
PROVIDERS: Emergency Provider Emergency Medicine; PCP Urology
DX: R07.89 Other chest pain (principal); R42 Dizziness and giddiness; W18.30XA Fall on same level, unspecified, initial encounter
CPT/HCPCS: 36591; 70450; 70496; 70498; 80048; 80320; 82962; 83880; 84484; 85025; 85610; 85730; 93005; 96361; 96374; 99284; 99285; 99291

== ENCOUNTER 2018-01-28 15:48 | Emergency (ER) | payer OTHER, SELFPAY ==
[2017-10-12 15:11] VITALS: BMI 47.2
[2018-01-28 15:50] VITALS: BP 118/74; PULSE 63; RESP 16; TEMP 37.4; O2SAT 96; BMI 43.7
--- NOTE | 2018-01-28 16:14 | ED_ITS ---
HPI - Psych General Chief Complaint: Psychiatric Symptoms Stated Complaint: MEDICAL CLEARENCE SENT BY DR GONZALEZ Time Seen by Provider: 01/28/18 16:05 Source: patient Mode of arrival: ambulatory Limitations: no limitations History of Present Illness HPI Narrative: Patient is a 57-year-old male sent over from Dr. Gonzalez his mental health clinic for concerns confusion and mental health disability. Patient was voluntary at the time of coming here to the ER. There was concern from Dr. Gonzalez about the patient's increased confusion over the past couple days. Please see Dr. Gonzalez note from 01/28/2018 for specifics. Upon arrival patient stated that he did not know why he was here in the emergency department. He stated that he was hearing voices but he hears voices every day. He states that the voices do tell him to hurt himself however he states that he is not going to hurt himself. He specifically told me that he has had opportunities in the past her kill himself but has not. Patient states that he has his baseline mental status. Lives with his parents. Takes all his medications every day. Related Data Home Medications Medication Instructions Recorded Confirmed aspirin 81 mg PO DAILY #0 03/17/11 01/28/18 hydrochlorothiazide 25 mg PO QDAY #0 12/25/16 01/28/18 metformin [Glucophage XR] 500 mg PO BIDCC #60 tab 12/25/16 01/28/18 tramadol 50 mg PO BID #0 12/25/16 01/28/18 warfarin [Coumadin] 10 mg PO SUMOWEFR #0 12/25/16 01/28/18 lisinopril 40 mg PO QDAY #0 01/19/17 01/28/18 warfarin [Coumadin] 7.5 mg PO TUTHSA #0 01/19/17 01/28/18 atorvastatin 40 mg PO BEDTIME 10/12/17 01/28/18 furosemide 80 mg PO DAILY 10/12/17 01/28/18 gabapentin 600 mg PO TID 10/12/17 01/28/18 insulin aspart U-100 35 units SUB-Q TIDWM 10/12/17 01/28/18 insulin glargine 50 units SUB-Q DAILY 10/12/17 01/28/18 isosorbide mononitrate 30 mg PO QAM 10/12/17 01/28/18 levothyroxine [Synthroid] 75 mcg PO DAILY 10/12/17 01/28/18 lidocaine-prilocaine 1 applic TOPICAL DIRECTED 10/12/17 01/28/18 nitroglycerin [Nitrostat] 0.4 mg SUBLINGUAL Q5 MIN PRN PRN 10/12/17 01/28/18 benztropine 1 mg PO BID 12/31/17 01/28/18 sennosides 8.6 mg tablet 8.6 mg PO BID PRN 01/26/18 01/28/18 Previous Rx's Medication Instructions Recorded fenofibrate 160 mg PO QDAY #90 03/25/12 metoprolol succinate [Toprol XL] 25 mg PO QDAY #30 tab 12/26/16 divalproex 500 mg tablet,delayed 1,500 mg PO BEDTIME #270 tab 10/12/17 release divalproex 500 mg tablet,delayed 500 mg PO QAM #90 tab 10/12/17 release fluoxetine 40 mg capsule 80 mg PO QAM 90 Days #180 tab 10/12/17 ziprasidone 80 mg capsule 160 mg PO BEDTIME #14 cap 12/23/17 Allergies Allergy/AdvReac Type Severity Reaction Status Date / Time Penicillins [PENICILLINS] Allergy Severe Swelling Verified 01/28/18 16:05 of Lip/Tongue/Throat Review of Systems Constitutional Denies headache(s) ENT Ears, Nose, Mouth, and Throat: Denies headache(s) Cardiovascular Reports chest pain (This is chronic for him) and Denies dyspnea Respiratory Denies dyspnea Gastrointestinal Gastrointestinal: Denies abdominal pain and Denies change in stool character Musculoskeletal Denies myalgias and Denies arthralgias Integumentary/Breasts Denies lesions and Denies rash Neurologic Denies behavioral changes and Denies headache(s) Psychiatric Denies anxiety, Denies behavioral changes, Reports depression, Denies panic attacks and Reports hallucinations (Auditory hallucinations) [facility]LY [facility] Medical History Chronic left shoulder pain (Acute) Pulmonary embolism (Acute) CAD (coronary artery disease) (Chronic) Diabetes type 2, controlled (Chronic) HTN (hypertension) (Chronic) Hyperlipidemia (Chronic) Schizoaffective disorder (Chronic) Surgical History Hx of CABG (Chronic) Family History Mother Coronary artery disease Father No problems noted. Social History household members: family lives independently: Yes caregiver/support person: Yes housing: house Smoking Status: Former smoker alcohol intake: never substance use type: does not use Exam Initial Vital Signs Initial Vital Signs: Vital Signs Temperature 99.4 F 01/28/18 15:50 Pulse Rate 63 01/28/18 15:50 Respiratory Rate 16 01/28/18 15:50 Blood Pressure 118/74 01/28/18 15:50 Pulse Oximetry 96 01/28/18 15:50 Const General: cooperative, healthy appearing, comfortable, well developed, well groomed and No acute distress Orientation: alert, awake and oriented x3 HENMT Head: normal to inspection and normocephalic Resp Effort & Inspection: normal respiratory effort Auscultation: clear to auscultation bilaterally Cardio Rate: regular rate Rhythm: regular rhythm Skin Lesions: no lesions Rashes: no rashes Neuro General: alert, awake and oriented x3 Speech: speech normal Motor: muscle tone normal throughout Sensory Exam: no sensory deficits noted Extrem General: normal to inspection and capillary refill normal Psych Appearance: grossly normal and well kempt Speech and Movement: speech and movement normal Mood: congruent mood Affect: normal affect Attitude: cooperative Course Orders Ordered: ED Orders 01/28/18 16:06 EKG-12 Lead Stat 01/28/18 16:42 Acetaminophen Stat Ammonia (NH3) Stat Basic Metabolic Panel Stat Complete Blood Count AUTO DIFF Stat Ethanol (ETOH) Stat Prothrombin Time INR Stat Salicylate Stat Triiodothyronine T3 Free Stat 01/28/18 17:00 Urine Drug Screen, Rapid Stat 01/28/18 17:12 CT head/brain wo con Stat Vital Signs - 8 hr 01/28/18 15:50 Temperature 99.4 F Pulse Rate 63 Respiratory Rate 16 Blood Pressure 118/74 Pulse Oximetry 96 MDM - Psych Medical Records Attestation: I reviewed the patient's medical records. Lab Data Attestation: I reviewed the patient's lab results. Result diagrams: 01/28/18 16:42 01/28/18 16:42 Lab Results 1001/28/18 01/28/18 Range/Units 16:42 16:42 16:42 WBC 6.8 (4.5-11.0) X10^3/uL RBC 4.33 L (4.5-5.9) X10^6/uL Hgb 11.9 L (13.5-17.5) g/dL Hct 36.7 L (41-53) % MCV 84.7 (80-100) fL MCH 27.5 (26-34) PG MCHC 32.5 (30-36) % RDW 17.6 H (11.6-14.8) % Plt Count 214 (150-400) X10^3/uL Neut % (Auto) 46.9 L (50-75) % Lymph % (Auto) 42.2 H (25-40) % [place] % (Auto) 7.1 (3-14) % Eos % (Auto) 2.6 (2-4) % Baso % (Auto) 1.2 (0-2) % Neut # (Auto) 3200 (4338-0171) /uL PT 70.6 H (10.1-12.7) SECONDS INR 6.3 H* (0.9-1.3) Sodium (137-145) mmol/L Potassium (3.4-5.1) mmol/L Chloride (98-107) mmol/L Carbon Dioxide (22-32) mmol/L BUN (9-20) mg/dL Creatinine (0.66-1.25) mg/dL Estimated GFR (>60) mL/min BUN/Creatinine Ratio (6-22) Glucose (70-100) mg/dL Calcium (8.4-10.2) mg/dL Ammonia 19.0 (9-30) umol/L Free T3 (2.77-5.27) pg/mL Salicylates (<20) mg/dL Urine Opiates Screen (Negative) Ur Oxycodone Screen (Negative) Urine Methadone Screen (Negative) Acetaminophen (10-30) ug/mL Ur Barbiturates Screen (Negative) U Tricyclic Antidepress (Negative) Ur Phencyclidine Scrn (Negative) Ur Amphetamines Screen (Negative) U Methamphetamines Scrn (Negative) Ur MDMA Scrn (Ecstasy) (Negative) U Benzodiazepines Scrn (Negative) Urine Cocaine Screen (Negative) U Marijuana (THC) Screen (Negative) Ethyl Alcohol mg/dL 01/28/18 01/28/18 01/28/18 Range/Units 16:42 16:42 17:00 WBC (4.5-11.0) X10^3/uL RBC (4.5-5.9) X10^6/uL Hgb (13.5-17.5) g/dL Hct (41-53) % MCV (80-100) fL MCH (26-34) PG MCHC (30-36) % RDW (11.6-14.8) % Plt Count (150-400) X10^3/uL Neut % (Auto) (50-75) % Lymph % (Auto) (25-40) % [place] % (Auto) (3-14) % Eos % (Auto) (2-4) % Baso % (Auto) (0-2) % Neut # (Auto) (1786-7013) /uL PT (10.1-12.7) SECONDS INR (0.9-1.3) Sodium 145 (137-145) mmol/L Potassium 4.3 (3.4-5.1) mmol/L Chloride 106 (98-107) mmol/L Carbon Dioxide 31 (22-32) mmol/L BUN 13 (9-20) mg/dL Creatinine 1.10 (0.66-1.25) mg/dL Estimated GFR > 60.0 (>60) mL/min BUN/Creatinine Ratio 11.8 (6-22) Glucose 83 (70-100) mg/dL Calcium 9.6 (8.4-10.2) mg/dL Ammonia (9-30) umol/L Free T3 3.14 (2.77-5.27) pg/mL Salicylates < 1.0 (<20) mg/dL Urine Opiates Screen Negative (Negative) Ur Oxycodone Screen Negative (Negative) Urine Methadone Screen Negative (Negative) Acetaminophen < 10 L (10-30) ug/mL Ur Barbiturates Screen Negative (Negative) U Tricyclic Antidepress Negative (Negative) Ur Phencyclidine Scrn Negative (Negative) Ur Amphetamines Screen Negative (Negative) U Methamphetamines Scrn Negative (Negative) Ur MDMA Scrn (Ecstasy) Negative (Negative) U Benzodiazepines Scrn Positive H (Negative) Urine Cocaine Screen Negative (Negative) U Marijuana (THC) Screen Negative (Negative) Ethyl Alcohol < 10 mg/dL Imaging Data CT scan - head: Radiologist's impression: PROCEDURE: CT HEAD/BRAIN WO CON INDICATIONS: altered mental status sent by dr gonzalez. TECHNIQUE: Noncontrast 4.5 mm thick angled axial sections acquired from the foramen magnum to the vertex, with coronal and sagittal reformats. For radiation dose reduction, the following was used: automated exposure control, adjustment of mA and/or kV according to patient size. COMPARISON: [facility], CT, CT ANGIO HEAD AND NECK, 01/03/2018, 14:33. [facility], CT, CT HEAD/BRAIN WO CON, 01/03/2018, 13:45. FINDINGS: Image quality: Excellent. CSF spaces: Basal cisterns are patent. No extra-axial fluid collections. Ventricles are normal in size and shape. Brain: No midline shift. No intracranial masses or hemorrhage. Wade-white matter interface is normal. Skull and face: Calvarium and visualized facial bones are intact, without suspicious lesions. Sinuses: Visualized sinuses and mastoids are clear. IMPRESSION: 1. No acute intracranial process. Dictated by: Reena Barrios M.D. on 01/28/2018 at 17:33 Approved by: Reena Barrios M.D. on 01/28/2018 at 17:34 ECG Data Prior ECG tracings: not available for review Interpretation: Sinus bradycardia Ventricular rate of 54 LVH Left axis deviation Normal QRS Normal QTC Nonspecific ST T wave changes MDM Narrative Medical decision making narrative: Patient is medically cleared. The only abnormality today found on his lab tests orders his elevated INR. I did discuss this with him and he was given instructions on his discharge paperwork on how to take this medication. He has no signs of active bleeding. Upon arrival here to the emergency department he was alert and oriented x3. He stated that he did not know why he was here in the ER. He stated that he did not want to be admitted to the hospital. He did have periods of time while he was here that he was somewhat confused. He had some problems remembering that he was just at his mental health providers office just prior to being here in the ER. Patient denied suicidality. He does live with his parents. He states that he is hearing voices but this is not new to him. He states he feels like he does not need to be admitted to the hospital. He does not want to be admitted to the hospital. He was seen by social work here in the emergency department. In my opinion at the time of my evaluation he does have the capacity to make decisions. I feel like I do not have a reason to involuntarily admit him to the hospital. I did discuss this with Dr. Gonzalez who also stated that we did not have reason to involuntarily admit him if he does not want to be admitted. Her office was going to call the patient for a follow-up in the next couple days. The patient was given return precautions. Discharge Plan Departure Patient Disposition: Home Clinical Impression: Supratherapeutic INR, Auditory hallucination Activity Restrictions/Additional Instructions: Your Coumadin/warfarin levels were elevated today. Here the instructions for the next several days Tomorrow (Wednesday) do not take your warfarin Wednesday, do not take your warfarin Wednesday, take 1/2 dose of your warfarin Wednesday, take 1/2 dose of your warfarin Wednesday, start taking your warfarin at its normal dose You do need to contact your primary care doctor to follow up with regard to your warfarin/Coumadin If you ever have thoughts of hurting yourself or others please return to the emergency department for further evaluation Prescriptions: No Action fluoxetine 40 mg capsule 80 mg PO QAM 90 Days Qty: 180 RF: 3 divalproex [Depakote] 500 mg tablet,delayed release (DR/EC) 500 mg PO QAM Qty: 90 RF: 3 divalproex [Depakote] 500 mg tablet,delayed release (DR/EC) 1,500 mg PO BEDTIME Qty: 270 RF: 3 sennosides [Senna Lax] 8.6 mg tablet 8.6 mg PO BID PRN (Reason: Constipation) RF: 0 aspirin 81 mg Tablet,Delayed Release (Dr/Ec) 81 mg PO DAILY Qty: 0 RF: 0 fenofibrate 160 MG tablet 160 mg PO QDAY Qty: 90 RF: 3 hydrochlorothiazide 25 MG tablet 25 mg PO QDAY Qty: 0 RF: 0 tramadol 50 MG tablet 50 mg PO BID Qty: 0 RF: 0 warfarin [Coumadin] 5 MG tablet 10 mg PO SUMOWEFR Qty: 0 RF: 0 metformin [Glucophage XR] 500 MG tablet extended release 24 hr 500 mg PO BIDCC Qty: 60 RF: 0 metoprolol succinate [Toprol XL] 25 MG tablet extended release 24 hr 25 mg PO QDAY Qty: 30 RF: 0 lisinopril 40 MG tablet 40 mg PO QDAY Qty: 0 RF: 0 warfarin [Coumadin] 7.5 MG tablet 7.5 mg PO TUTHSA Qty: 0 RF: 0 ziprasidone HCl 80 mg capsule 160 mg PO BEDTIME Qty: 14 RF: 0 lidocaine-prilocaine 2.5-2.5 % Cream 1 applic Topical DIRECTED RF: 0 nitroglycerin [Nitrostat] 0.4 mg Tablet, Sublingual 0.4 mg Sublingual Q5 MIN PRN PRN (Reason: Chest Pain) RF: 0 insulin glargine 100 unit/mL (3 mL) Insulin Pen 50 units Sub-Q DAILY RF: 0 atorvastatin 40 mg Tablet 40 mg PO BEDTIME RF: 0 gabapentin 600 mg Tablet 600 mg PO TID RF: 0 isosorbide mononitrate 30 mg Tablet Extended Release 24 Hr 30 mg PO QAM RF: 0 levothyroxine [Synthroid] 75 mcg Tablet 75 mcg PO DAILY RF: 0 furosemide 80 mg Tablet 80 mg PO DAILY RF: 0 insulin aspart U-100 100 unit/mL Insulin Pen 35 units Sub-Q TIDWM RF: 0 benztropine 1 mg tablet 1 mg PO BID RF: 0
[2018-01-28 16:50] LABS: Add Manual Diff / Slide Review NO; Basophils Percent Auto 1.2 % (0-2); Eosinophils Percent Auto 2.6 % (2-4); Hematocrit 36.7 % (41-53); Hemoglobin 11.9 g/dL (13.5-17.5); Lymphocytes Percent Auto 42.2 % (25-40); Mean Corpuscular HGB Conc 32.5 % (30-36); Mean Corpuscular Hemoglobin 27.5 PG (26-34); Mean Corpuscular Volume 84.7 fL (80-100); Monocytes Percent Auto 7.1 % (3-14); Neutrophils Absolute Auto 3200 /uL (3000-5900); Neutrophils Percent Auto 46.9 % (50-75); Platelet Count 214 X10^3/uL (150-400); Red Blood Cell Count 4.33 X10^6/uL (4.5-5.9); Red Cell Distribution Width 17.6 % (11.6-14.8); White Blood Cell Count 6.8 X10^3/uL (4.5-11.0)
[2018-01-28 16:57] LABS: Prothrombin Time 70.6 SECONDS (10.1-12.7)
[2018-01-28 17:01] LABS: INR 6.3 (0.9-1.3)
[2018-01-28 17:10] LABS: Acetaminophen < 10 ug/mL (10-30); BUN Creatinine Ratio 11.8 (6-22); Blood Urea Nitrogen 13 mg/dL (9-20); Calcium 9.6 mg/dL (8.4-10.2); Carbon Dioxide 31 mmol/L (22-32); Chloride 106 mmol/L (98-107); Estimated Glomerular Filt Rate > 60.0 mL/min (>60); Ethanol (ETOH) < 10 mg/dL; Glucose 83 mg/dL (70-100); HEMOLYSIS 48 (0-50); Potassium 4.3 mmol/L (3.4-5.1); Sodium 145 mmol/L (137-145)
--- NOTE | 2018-01-28 17:12 | DI.CT.S_ITS ---
PROCEDURE: CT HEAD/BRAIN WO CON INDICATIONS: altered mental status sent by dr gonzalez. TECHNIQUE: Noncontrast 4.5 mm thick angled axial sections acquired from the foramen magnum to the vertex, with coronal and sagittal reformats. For radiation dose reduction, the following was used: automated exposure control, adjustment of mA and/or kV according to patient size. COMPARISON: [facility], CT, CT ANGIO HEAD AND NECK, 01/03/2018, 14:33. [facility], CT, CT HEAD/BRAIN WO CON, 01/03/2018, 13:45. FINDINGS: Image quality: Excellent. CSF spaces: Basal cisterns are patent. No extra-axial fluid collections. Ventricles are normal in size and shape. Brain: No midline shift. No intracranial masses or hemorrhage. Wade-white matter interface is normal. Skull and face: Calvarium and visualized facial bones are intact, without suspicious lesions. Sinuses: Visualized sinuses and mastoids are clear. IMPRESSION: 1. No acute intracranial process. Dictated by: Reena Barrios M.D. on 01/28/2018 at 17:33 Approved by: Reena Barrios M.D. on 01/28/2018 at 17:34
[2018-01-28 17:13] LABS: Salicylate < 1.0 mg/dL (<20)
[2018-01-28 17:15] LABS: Urine Amphetamines Negative (Negative); Urine Barbiturates Negative (Negative); Urine Benzodiazepines Positive (Negative); Urine Cocaine Negative (Negative); Urine MDMA Negative (Negative); Urine Methadone Negative (Negative); Urine Methamphetamines Negative (Negative); Urine Morphine/Opi cutoff 2000 Negative (Negative); Urine Phencyclidine Negative (Negative); Urine Tetrahydrocannabinol Negative (Negative); Urine Tricyclic Antidepressant Negative (Negative)
[2018-01-28 17:16] LABS: Urine Oxycodone Negative (Negative)
--- NOTE | 2018-01-28 17:16 | CM.SWNOTE ---
Presenting Problem: Pt was unsure why he was in the Emergency Department Psychiatric Tx Pt was hospitalized once at the age of 13. [facility] did not go into details regarding hx. he has had three suicide attempts. He is followed by Dr Jovel ([facility]) and Michelle Ferris ([facility]). Information about his hospitalizations has not been verified. It is unknonw why he would have had 3 suicide attempts and not been hospitalized. Mental Status Exam: Pt is a 57 yo man w ho appears older than his stated age. His eye contact was fair; speech was soft, goal directed at times, but also somewhat tangential. SI/HI. Pt stated that he did not have any current SI, but that this is chronic for him and that he frequently hears voices telling him to harm himself. AH: current, VH: no. Pt appeared A/Ox 3. There appeared to be some short term memory limitations, but this was not tested. He was not carmina why he was in the Emergency Department. Mood, appeared depressed. affect was flat, but pt was cooperative. Plan: Pt is not interested in an inpt psychiatric hospitalization and does not meet criteria for detainment. He is not currently suicidal in that what he is experiencing is not any different fromt he usual auditory hallucinations. He stated that he felt safe to return home as long as there was not a medical need for hospitalization. He knows how to get in contact with his therapist, psychiatrist and carried the crisis line # in his wallet. Pt lives with family, and helps his parents by driving them to their appointments and shopping. There does ot appear to be any further social work needs noted. This was discussed with pt's provider and nurse. Discharge Planning/Care Management ED Crisis Response Assessment Start: 01/28/18 17:02 Freq: Status: Active Protocol: Document 01/28/18 17:02 (Rec: 01/28/18 17:16 [id number]) ED Crisis Response Assessment TRIPE COOKER Assessment Type Mental Health Reason for TRIPE COOKER Referral Pt eas referred to the Emergency department for medical clearance. The informaiton provided to this ED TRIPE COOKER was that pt had seen his psychiatrist, Dr Jovel today. She had concerns about his presentation and sent him to the ED for medical clearance. it was also stated that it was htought that he needed to be psychiatrically hospitalized. Referred by Dr Jimenez Presenting Problem PARI MUTUEL [employer] SE[employer]ER met with pt and asked what brought him to the Emergency Department today. he was not sure and unsure how he got here. Mental health diagnosis According to Dr Jovel's note from today 01/28/18, pt has a dx of schizoaffective disorder, depressive type and was seen for medication management. VOA/CMS check No Suicidal thoughts No Past Suicidal thoughts Yes: Pt reported that he frequetnly has Si Current Suicidal thoughts No Prior Suicide attempts Yes: Pt attempted suicide three times, but taking an overdose of medicaitons Number of suicide attempts 3 Current plan for self harm No Thoughts of harm to others No Current thoughts of harming others No Current plan to harm others No Risk factor comments From Dr Jovel's note: risk factors: previous suicide attempt, medical comorbidities , command hallucinations to harm himself. Protective factors: Hope for the future, some responseability for teenage son, positive problem solving skills. Overall risk assessment: Based on the presence of some suicidal desire; no suicidal intent; liited suicidal capability; and some buffers against suicide; overall level of risk is judged to be low despite chroincally elevated risk based on above factors Relevant Medical History Coronary Artery Disease, chronic Crisis Plan Pt sees his psychiatirst, Dr Jovel on a monthly basis and his counselor at [facility], [place] on a monthy basis. Pt is aware of the crisis # and stated that he carries it in his wallet. He denies current suicidality and is n ot interested in an inpt hospitalization. He knows how to contact the crisis line if needed. Pt has lived with auditory hallucinations for many years and feels confident that he will not re spond to the commands. Resources Provided Pt stated he did nto need resources. He lives with his parents and has both a psychiatrist and counselor who he sees on a regular basis. Additional Comment If pt does not meet medical necessity for hospitalization he will return home.
[2018-01-28 17:28] LABS: Free T3, Triiodothyronine Free 3.14 pg/mL (2.77-5.27)
[2018-01-28 18:22] VITALS: BP 157/87; PULSE 63; RESP 16; O2SAT 99
== END 2018-01-28 18:25 | disposition home or self-care (01) ==
PROVIDERS: Emergency Provider Emergency Medicine; PCP Urology
DX: R79.1 Abnormal coagulation profile (principal); R44.0 Auditory hallucinations
CPT/HCPCS: 36415; 70450; 80048; 80305; 80320; 80329; 82140; 84481; 85025; 85610; 93005; 93010; 99282; 99285; G0480

== ENCOUNTER 2018-05-26 14:29 | Emergency (ER) | payer OTHER, SELFPAY ==
[2018-01-31 15:30] VITALS: BMI 47.2
[2018-05-26 14:33] VITALS: BP 164/80; PULSE 82; RESP 20; TEMP 36.9; O2SAT 93; BMI 43.4
--- NOTE | 2018-05-26 14:36 | DI.RAD.S_ITS ---
PROCEDURE: XR CHEST 1V INDICATIONS: chest pain TECHNIQUE: One view of the chest was acquired. COMPARISON: [facility], CR, XR CHEST 2V, 12/31/2017, 16:24. FINDINGS: Surgical changes and devices: Prior median sternotomy changes are present. Lungs and pleura: Prominent perihilar interstitial markings are present without focal consolidation evident. No effusion or pneumothorax is appreciated. Mediastinum: Mediastinal contours appear normal. Heart size is enlarged. There appears to be aortic atherosclerosis. Bones and chest wall: No suspicious bony lesions. Overlying soft tissues appear unremarkable. IMPRESSION: Cardiomegaly and moderate vascular congestion is suggestive of developing pulmonary edema. Please correlate clinically. Dictated by: Gold Carreon M.D. on 05/26/2018 at 13:55 Approved by: Gold Carreon M.D. on 05/26/2018 at 13:56
--- NOTE | 2018-05-26 14:36 | DI.CT.S_ITS ---
PROCEDURE: CT HEAD/BRAIN WO CON INDICATIONS: head injury on coumadin TECHNIQUE: Noncontrast 4.5 mm thick angled axial sections acquired from the foramen magnum to the vertex, with coronal and sagittal reformats. For radiation dose reduction, the following was used: automated exposure control, adjustment of mA and/or kV according to patient size. COMPARISON: [facility], CT, CT HEAD/BRAIN WO CON, 01/28/2018, 17:16. FINDINGS: Image quality: Diagnostic. CSF spaces: Basal cisterns are patent. No extra-axial fluid collections. Ventricles are normal in size and shape. Brain: No midline shift. No intracranial masses or hemorrhage. Wade-white matter interface is normal. Skull and face: Calvarium and visualized facial bones are intact, without suspicious lesions. Sinuses: Opacification of the nearly all of the right maxillary sinus is present. There is a because retention cyst versus mucosal polyp involving the inferior left maxillary sinus. Otherwise, the imaged paranasal sinuses and mastoid air cells are clear. IMPRESSION: 1. No acute intracranial hemorrhage. 2. Maxillary sinus disease. Dictated by: Gold Carreon M.D. on 05/26/2018 at 13:53 Approved by: Gold Carreon M.D. on 05/26/2018 at 13:55
[2018-05-26 15:00] VITALS: BP 163/89; PULSE 63; RESP 26; O2SAT 98
[2018-05-26 15:06] LABS: Add Manual Diff / Slide Review NO; Basophils Absolute Auto 0 /uL (0-100); Basophils Percent Auto 0.6 % (0-2); Eosinophils Absolute Auto 100 /uL (0-450); Eosinophils Percent Auto 0.9 % (2-4); Hematocrit 36.3 % (41-53); Hemoglobin 12.2 g/dL (13.5-17.5); Lymphocytes Absolute Auto 2000 /uL (1100-4500); Lymphocytes Percent Auto 25.6 % (25-40); Mean Corpuscular HGB Conc 33.5 % (30-36); Mean Corpuscular Hemoglobin 29.2 PG (26-34); Mean Corpuscular Volume 87.2 fL (80-100); Monocytes Absolute Auto 400 /uL (0-900); Monocytes Percent Auto 5.7 % (3-14); Neutrophils Absolute Auto 5100 /uL (1500-7000); Neutrophils Percent Auto 67.2 % (50-75); Platelet Count 186 X10^3/uL (150-400); Red Blood Cell Count 4.17 X10^6/uL (4.5-5.9); Red Cell Distribution Width 15.2 % (11.6-14.8); White Blood Cell Count 7.6 X10^3/uL (4.5-11.0)
--- NOTE | 2018-05-26 15:06 | PC.NURSE ---
Pt states he feels hot and cold at the same time, states he is not sure if his sugar is low. Pt states he has 20/10 head pain.
[2018-05-26 15:18] LABS: INR 1.7 (0.9-1.3); Prothrombin Time 20.1 SECONDS (10.1-12.7)
[2018-05-26 15:20] LABS: PTT Partial Thromboplastin Tim 34 SECONDS (26.4-36.2)
[2018-05-26 15:22] LABS: Alanine Aminotransferase 26 IU/L (21-72); Albumin 4.1 g/dL (3.5-5.0); Albumin Globulin Ratio 1.2 (1.0-2.8); Alkaline Phosphatase 61 U/L (38-126); Aspartate Aminotransferase 18 IU/L (17-59); Bilirubin Total 0.3 mg/dL (0.2-1.3); Blood Urea Nitrogen 12 mg/dL (9-20); Carbon Dioxide 27 mmol/L (22-32); Chloride 104 mmol/L (98-107); Creatine Kinase 141 U/L (55-170); Estimated Glomerular Filt Rate > 60.0 mL/min (>60); Globulin 3.4 g/dL (1.7-4.1); Glucose 82 mg/dL (70-100); HEMOLYSIS < 15 (0-50); Lipase 25 U/L (23-300); Potassium 4.6 mmol/L (3.4-5.1); Sodium 139 mmol/L (137-145); Total Protein 7.5 g/dL (6.3-8.2)
[2018-05-26 15:33] LABS: Troponin I < 0.012 ng/mL (0.01-0.034)
[2018-05-26 15:37] LABS: CKMB % Relative Index 0.7 % (1.5-5.0); Creatine Kinase MB 0.95 ng/mL (<2.37)
--- NOTE | 2018-05-26 15:53 | ED.CHESTPAIN ---
HPI - Chest Pain General Chief Complaint: Chest Pain Stated Complaint: CHEST PAIN,FELL HIT HEAD Time Seen by Provider: 05/26/18 15:00 Source: patient Mode of arrival: ambulatory Limitations: no limitations History of Present Illness HPI narrative: 57-year-old male nonsmoker with history of pulmonary emboli on Coumadin and psychiatric illness presents to the emergency department with a chief complaint headache after a slip and fall and striking his head. He is activated as a modified trauma given his fall, head injury and Coumadin. He denies loss of consciousness nor nausea or vomiting. He denies any blurred vision nor focal neurologic findings like numbness, tingling or weakness. He has had no vomiting and denies any use of alcohol or street drugs. Furthermore when he tried sitting up he felt a sharp pain in his anterior chest which is made worse with deep breath, motion or palpation and improves with rest. He had no pain prior to the fall. He denies any shortness of breath, hemoptysis Related Data Home Medications Medication Instructions Recorded Confirmed aspirin 81 mg PO DAILY #0 03/17/11 05/26/18 metformin [Glucophage XR] 500 mg PO BIDCC #60 tab 12/25/16 05/26/18 atorvastatin 40 mg PO BEDTIME 10/12/17 05/26/18 insulin aspart U-100 30 - 35 units SUB-Q TIDWM 10/12/17 05/26/18 insulin glargine 50 units SUB-Q DAILY 10/12/17 05/26/18 levothyroxine [Synthroid] 75 mcg PO DAILY 10/12/17 05/26/18 nitroglycerin [Nitrostat] 0.4 mg SUBLINGUAL Q5 MIN PRN PRN 10/12/17 05/26/18 lisinopril 10 mg tablet 10 mg PO DAILY 02/07/18 05/26/18 tamsulosin 0.4 mg capsule 0.4 mg PO DAILY 02/07/18 05/26/18 acetaminophen 325 mg capsule 325 mg PO DIRECTED 02/18/18 05/26/18 isosorbide mononitrate ER 30 mg 60 mg PO QAM tab 02/18/18 05/26/18 tablet,extended release 24 hr cholecalciferol (vitamin D3) 5,000 unit PO DAILY 05/26/18 05/26/18 [Vitamin D3] fluoxetine 40 mg PO DAILY 05/26/18 05/26/18 fluoxetine 80 mg PO DAILY 05/26/18 05/26/18 furosemide 40 mg PO DAILY 05/26/18 05/26/18 hydrochlorothiazide 25 mg PO DAILY 05/26/18 05/26/18 metoprolol succinate [Toprol XL] 25 mg PO DAILY 05/26/18 05/26/18 sennosides [senna] 8.6 mg PO DIRECTED 05/26/18 05/26/18 warfarin 2 mg PO DAILY 05/26/18 05/26/18 warfarin 6 mg PO QPM 05/26/18 05/26/18 ziprasidone HCl 60 mg PO BID 05/26/18 05/26/18 Previous Rx's Medication Instructions Recorded divalproex 500 mg tablet,delayed 500 mg PO QAM #90 tab 10/12/17 release benztropine 1 mg tablet 1 mg PO BID #180 tab 03/30/18 hydrocodone-acetaminophen 1 tab PO Q4-6H PRN #10 tab 05/26/18 Allergies Allergy/AdvReac Type Severity Reaction Status Date / Time Penicillins [PENICILLINS] Allergy Severe Swelling Verified 05/26/18 14:33 of Lip/Tongue/Throat Review of Systems Constitutional Denies chills, Denies fever(s), Denies lethargy and Denies weakness Eyes Denies change in vision, Denies eye discharge, Denies irritation and Denies loss of vision ENT Ears, Nose, Mouth, and Throat: Denies change in voice, Denies neck pain and Denies sore throat Cardiovascular Reports chest pain, Denies irregular heart rhythm, Denies lightheadedness, Denies palpitations, Denies dyspnea, Denies dyspnea on exertion and Denies orthopnea Respiratory Denies cough, Denies dyspnea, Denies dyspnea on exertion and Denies wheezing Gastrointestinal Gastrointestinal: Denies abdominal pain, Denies change in bowel habits, Denies diarrhea, Denies nausea and Denies vomiting Genitourinary Denies hematuria, Denies flank pain, Denies urinary incontinence and Denies urinary urgency Musculoskeletal Denies neck pain Integumentary/Breasts Denies pruritus, Denies erythema, Denies rash and Denies wounds Neurologic Denies confusion, Denies loss of vision and Denies weakness Psychiatric Denies anxiety, Denies confusion, Denies depression, Denies homicidal ideation and Denies suicidal ideation Endocrine Denies palpitations Hematologic/Lymphatic Denies easy bruising Allergic/Immunologic Denies wheezing [facility] History Chronic left shoulder pain (Acute) Pulmonary embolism (Acute) CAD (coronary artery disease) (Chronic) Diabetes type 2, controlled (Chronic) HTN (hypertension) (Chronic) Hyperlipidemia (Chronic) Schizoaffective disorder (Chronic) Surgical History Hx of CABG (Chronic) Family History Mother Coronary artery disease Father No problems noted. Social History household members: family lives independently: Yes caregiver/support person: Yes housing: house Smoking Status: Former smoker alcohol intake: never substance use type: does not use Family History Mother Coronary artery disease Father No problems noted. Social History household members: family lives independently: Yes caregiver/support person: Yes housing: house Smoking Status: Former smoker alcohol intake: never substance use type: does not use Exam Narrative Exam Narrative: GENERAL: 57-year-old male, appears stated age. He is alert and oriented with GCS of 15, bit of a flat affect which is his baseline HEAD: abrasion and minimal contusion to the occiput, no depressed skull fracture EYES: Pupils equal round and reactive. Extraocular motions intact. No scleral icterus. No injection or drainage. ENT: Nose without bleeding, purulent drainage or septal hematoma. Throat without erythema, tonsillar hypertrophy or exudate. Uvula midline. Airway patent. NECK: Trachea midline. No JVD or lymphadenopathy. Supple, nontender, no meningeal signs. CARDIOVASCULAR: Regular rate and rhythm without murmurs, gallops, or rubs. sharp and stabbing anterior chest pain on palpation RESPIRATORY: Clear to auscultation. Breath sounds equal bilaterally. No wheezes, rales, or rhonchi. GASTROINTESTINAL: Abdomen soft, non-tender, nondistended. No hepato-splenomegaly, or palpable masses. No guarding. EXTREMITIES: No clubbing, cyanosis, or edema. No joint tenderness, effusion, or edema noted. BACK: Nontender without deformity or crepitance. No flank tenderness. NEURO: AOx3. SKIN: No rash or erythema. Initial Vital Signs Initial Vital Signs: Vital Signs Temperature 98.5 F 05/26/18 14:33 Pulse Rate 82 05/26/18 14:33 Respiratory Rate 20 05/26/18 14:33 Blood Pressure 164/80 H 05/26/18 14:33 Pulse Oximetry 93 05/26/18 14:33 Scores GCS Curtis coma scale eye opening: Spontaneous Perdido coma scale verbal response: Orientated Perdido coma scale motor response: Obey commands Curtis coma scale total score: 15 Course Orders Ordered: ED Orders 05/26/18 14:36 CT head/brain wo con Stat XR chest 1V Stat EKG-12 Lead Stat 05/26/18 14:54 Complete Blood Count AUTO DIFF Stat Comprehensive Metabolic Panel Stat Lipase Stat Partial Thromboplastin Time Stat Prothrombin Time INR Stat Troponin & CK Cardiac Panel Stat 05/26/18 17:33 Troponin I Stat Discontinued Medications Hydrocodone Bitart/Acetaminophen ([place] 5/325) 1 tab PO NOW ONE Stop: 05/26/18 18:35 Last Admin: 05/26/18 18:53 Dose: 1 tab Vital Signs - 8 hr 05/26/18 14:33 05/26/18 15:00 05/26/18 19:07 Temperature 98.5 F Pulse Rate 82 63 64 Respiratory Rate 20 26 H 15 Blood Pressure 164/80 H 125/65 Blood Pressure [Right Arm] 163/89 H Pulse Oximetry 93 98 100 MDM - Chest Pain Lab Data Result diagrams: 05/26/18 14:54 05/26/18 14:54 Lab Results 05/26/18 05/26/18 05/26/18 Range/Units 14:54 14:54 14:54 WBC 7.6 (4.5-11.0) X10^3/uL RBC 4.17 L (4.5-5.9) X10^6/uL Hgb 12.2 L (13.5-17.5) g/dL Hct 36.3 L (41-53) % MCV 87.2 (80-100) fL MCH 29.2 (26-34) PG MCHC 33.5 (30-36) % RDW 15.2 H (11.6-14.8) % Plt Count 186 (150-400) X10^3/uL Neut % (Auto) 67.2 (50-75) % Lymph % (Auto) 25.6 (25-40) % Wetzel % (Auto) 5.7 (3-14) % Eos % (Auto) 0.9 L (2-4) % Baso % (Auto) 0.6 (0-2) % Neut # (Auto) 5100 (4046-3243) /uL Lymph # (Auto) 2000 (0980-8735) /uL Wetzel # (Auto) 400 (0-900) /uL Eos # (Auto) 100 (0-450) /uL Baso # (Auto) 0 (0-100) /uL PT 20.1 H (10.1-12.7) SECONDS INR 1.7 H (0.9-1.3) APTT 34 D (26.4-36.2) SECONDS Sodium 139 (137-145) mmol/L Potassium 4.6 (3.4-5.1) mmol/L Chloride 104 (98-107) mmol/L Carbon Dioxide 27 (22-32) mmol/L BUN 12 (9-20) mg/dL Creatinine 1.20 (0.66-1.25) mg/dL Estimated GFR > 60.0 (>60) mL/min BUN/Creatinine Ratio 10.0 (6-22) Glucose 82 (70-100) mg/dL Calcium 9.0 (8.4-10.2) mg/dL Total Bilirubin 0.3 (0.2-1.3) mg/dL AST 18 (17-59) IU/L ALT 26 (21-72) IU/L Alkaline Phosphatase 61 (38-126) U/L Total Creatine Kinase 141 (55-170) U/L CK-MB (CK-2) 0.95 (<2.37) ng/mL CK-MB (CK-2) Rel Index 0.7 L (1.5-5.0) % Troponin I < 0.012 (0.01-0.034) ng/mL Total Protein 7.5 (6.3-8.2) g/dL Albumin 4.1 (3.5-5.0) g/dL Globulin 3.4 (1.7-4.1) g/dL Albumin/Globulin Ratio 1.2 (1.0-2.8) Lipase 25 (23-300) U/L 05/26/18 Range/Units 17:33 WBC (4.5-11.0) X10^3/uL RBC (4.5-5.9) X10^6/uL Hgb (13.5-17.5) g/dL Hct (41-53) % MCV (80-100) fL MCH (26-34) PG MCHC (30-36) % RDW (11.6-14.8) % Plt Count (150-400) X10^3/uL Neut % (Auto) (50-75) % Lymph % (Auto) (25-40) % Wetzel % (Auto) (3-14) % Eos % (Auto) (2-4) % Baso % (Auto) (0-2) % Neut # (Auto) (1837-1267) /uL Lymph # (Auto) (8915-2821) /uL Wetzel # (Auto) (0-900) /uL Eos # (Auto) (0-450) /uL Baso # (Auto) (0-100) /uL PT (10.1-12.7) SECONDS INR (0.9-1.3) APTT (26.4-36.2) SECONDS Sodium (137-145) mmol/L Potassium (3.4-5.1) mmol/L Chloride (98-107) mmol/L Carbon Dioxide (22-32) mmol/L BUN (9-20) mg/dL Creatinine (0.66-1.25) mg/dL Estimated GFR (>60) mL/min BUN/Creatinine Ratio (6-22) Glucose (70-100) mg/dL Calcium (8.4-10.2) mg/dL Total Bilirubin (0.2-1.3) mg/dL AST (17-59) IU/L ALT (21-72) IU/L Alkaline Phosphatase (38-126) U/L Total Creatine Kinase (55-170) U/L CK-MB (CK-2) (<2.37) ng/mL CK-MB (CK-2) Rel Index (1.5-5.0) % Troponin I < 0.012 (0.01-0.034) ng/mL Total Protein (6.3-8.2) g/dL Albumin (3.5-5.0) g/dL Globulin (1.7-4.1) g/dL Albumin/Globulin Ratio (1.0-2.8) Lipase (23-300) U/L Imaging Data CT scan - head: Radiologist's impression: [address] [address] [address] Scan Report Signed Patient: Luis E Pierre RMR#: [id number] : 1Acct:[id number] Age/Sex: 57 / MDate of Service: 05/26/18 Loc: ED Accession Number: [id number] Procedure: CT head/brain wo con Ordering Provider: Gera Colindres D.O. PROCEDURE: CT HEAD/BRAIN WO CON INDICATIONS: head injury on coumadin TECHNIQUE: Noncontrast 4.5 mm thick angled axial sections acquired from the foramen magnum to the vertex, with coronal and sagittal reformats. For radiation dose reduction, the following was used: automated exposure control, adjustment of mA and/or kV according to patient size. COMPARISON: [facility], CT, CT HEAD/BRAIN WO CON, 01/28/2018, 17:16. FINDINGS: Image quality: Diagnostic. CSF spaces: Basal cisterns are patent. No extra-axial fluid collections. Ventricles are normal in size and shape. Brain: No midline shift. No intracranial masses or hemorrhage. Wade-white matter interface is normal. Skull and face: Calvarium and visualized facial bones are intact, without suspicious lesions. Sinuses: Opacification of the nearly all of the right maxillary sinus is present. There is a because retention cyst versus mucosal polyp involving the inferior left maxillary sinus. Otherwise, the imaged paranasal sinuses and mastoid air cells are clear. IMPRESSION: 1. No acute intracranial hemorrhage. 2. Maxillary sinus disease. Dictated by: Gold Carreon M.D. on 05/26/2018 at 13:53 Approved by: Gold Carreon M.D. on 05/26/2018 at 13:55 Discharge Plan Departure Patient Disposition: Home Clinical Impression: Atypical chest pain Contusion of scalp Qualifiers: Encounter type: initial encounter Qualified Code(s): S00.03XA - Contusion of scalp, initial encounter Discharge Date/Time: 02/14/19 19:11 Interventions: ED Discharge Assessment Last Done: 05/26/18 19:07 Instructions: DI for Atypical Chest Pain, DI for Contusion Activity Restrictions/Additional Instructions: *You have been diagnosed with [atypical chest pain, costochondritis and scalp contusion ] *What to do: *Take medications as directed *Follow up with your primary care provider in 2-3 days, call for an appointment. Let them know you were seen in the Emergency Department and that we ask that you be seen in follow up *Return to ER if you should have any new, worsening or concerning symptoms, Prescriptions: New hydrocodone-acetaminophen 5-325 mg tablet 1 tab PO Q4-6H PRN (Reason: pain) Qty: 10 RF: 0 No Action divalproex [Depakote] 500 mg tablet,delayed release (DR/EC) 500 mg PO QAM Qty: 90 RF: 3 lisinopril 10 mg tablet 10 mg PO DAILY RF: 0 tamsulosin 0.4 mg capsule 0.4 mg PO DAILY RF: 0 benztropine 1 mg tablet 1 mg PO BID Qty: 180 RF: 3 aspirin 81 mg Tablet,Delayed Release (Dr/Ec) 81 mg PO DAILY Qty: 0 RF: 0 metformin [Glucophage XR] 500 MG tablet extended release 24 hr 500 mg PO BIDCC Qty: 60 RF: 0 isosorbide mononitrate 30 mg tablet extended release 24 hr 60 mg PO QAM RF: 0 acetaminophen 325 mg capsule 325 mg PO DIRECTED RF: 0 nitroglycerin [Nitrostat] 0.4 mg Tablet, Sublingual 0.4 mg Sublingual Q5 MIN PRN PRN (Reason: Chest Pain) RF: 0 insulin glargine 100 unit/mL (3 mL) Insulin Pen 50 units Sub-Q DAILY RF: 0 atorvastatin 40 mg Tablet 40 mg PO BEDTIME RF: 0 levothyroxine [Synthroid] 75 mcg Tablet 75 mcg PO DAILY RF: 0 insulin aspart U-100 100 unit/mL Insulin Pen 30 - 35 units Sub-Q TIDWM RF: 0 fluoxetine 40 mg Capsule 40 mg PO DAILY RF: 0 furosemide 40 mg Tablet 40 mg PO DAILY RF: 0 sennosides [senna] 8.6 mg Tablet 8.6 mg PO DIRECTED RF: 0 warfarin 2 mg tablet 6 mg PO QPM RF: 0 warfarin 2 mg Tablet 2 mg PO DAILY RF: 0 hydrochlorothiazide 25 mg Tablet 25 mg PO DAILY RF: 0 cholecalciferol (vitamin D3) [Vitamin D3] 5,000 unit Tablet 5,000 unit PO DAILY RF: 0 fluoxetine 60 mg Tablet 80 mg PO DAILY RF: 0 metoprolol succinate [Toprol XL] 25 MG tablet extended release 24 hr 25 mg PO DAILY RF: 0 ziprasidone HCl 60 mg capsule 60 mg PO BID RF: 0 Referrals: Jocelynn Juárez [Primary Care Provider] -
[2018-05-26 18:03] LABS: Troponin I < 0.012 ng/mL (0.01-0.034)
[2018-05-26] MEDS: HYDROCODONE/ACET 5/325 TABLET 1 TAB PO (18:53)
[2018-05-26 19:07] VITALS: BP 125/65; PULSE 64; RESP 15; O2SAT 100
--- NOTE | 2018-05-26 19:39 | ED_ITS ---
HPI - Chest Pain General Chief Complaint: Chest Pain Stated Complaint: CHEST PAIN,FELL HIT HEAD Time Seen by Provider: 05/26/18 15:00 Source: patient Mode of arrival: ambulatory Limitations: no limitations History of Present Illness HPI narrative: 57-year-old male nonsmoker with history of pulmonary emboli on Coumadin and psychiatric illness presents to the emergency department with a chief complaint headache after a slip and fall and striking his head. He is activated as a modified trauma given his fall, head injury and Coumadin. He denies loss of consciousness nor nausea or vomiting. He denies any blurred vision nor focal neurologic findings like numbness, tingling or weakness. He has had no vomiting and denies any use of alcohol or street drugs. Furthermore when he tried sitting up he felt a sharp pain in his anterior chest which is made worse with deep breath, motion or palpation and improves with rest. He had no pain prior to the fall. He denies any shortness of breath, hemoptysis Related Data Home Medications Medication Instructions Recorded Confirmed aspirin 81 mg PO DAILY #0 03/17/11 05/26/18 metformin [Glucophage XR] 500 mg PO BIDCC #60 tab 12/25/16 05/26/18 atorvastatin 40 mg PO BEDTIME 10/12/17 05/26/18 insulin aspart U-100 30 - 35 units SUB-Q TIDWM 10/12/17 05/26/18 insulin glargine 50 units SUB-Q DAILY 10/12/17 05/26/18 levothyroxine [Synthroid] 75 mcg PO DAILY 10/12/17 05/26/18 nitroglycerin [Nitrostat] 0.4 mg SUBLINGUAL Q5 MIN PRN PRN 10/12/17 05/26/18 lisinopril 10 mg tablet 10 mg PO DAILY 02/07/18 05/26/18 tamsulosin 0.4 mg capsule 0.4 mg PO DAILY 02/07/18 05/26/18 acetaminophen 325 mg capsule 325 mg PO DIRECTED 02/18/18 05/26/18 isosorbide mononitrate ER 30 mg 60 mg PO QAM tab 02/18/18 05/26/18 tablet,extended release 24 hr cholecalciferol (vitamin D3) 5,000 unit PO DAILY 05/26/18 05/26/18 [Vitamin D3] fluoxetine 40 mg PO DAILY 05/26/18 05/26/18 fluoxetine 80 mg PO DAILY 05/26/18 05/26/18 furosemide 40 mg PO DAILY 05/26/18 05/26/18 hydrochlorothiazide 25 mg PO DAILY 05/26/18 05/26/18 metoprolol succinate [Toprol XL] 25 mg PO DAILY 05/26/18 05/26/18 sennosides [senna] 8.6 mg PO DIRECTED 05/26/18 05/26/18 warfarin 2 mg PO DAILY 05/26/18 05/26/18 warfarin 6 mg PO QPM 05/26/18 05/26/18 ziprasidone HCl 60 mg PO BID 05/26/18 05/26/18 Previous Rx's Medication Instructions Recorded divalproex 500 mg tablet,delayed 500 mg PO QAM #90 tab 10/12/17 release benztropine 1 mg tablet 1 mg PO BID #180 tab 03/30/18 hydrocodone-acetaminophen 1 tab PO Q4-6H PRN #10 tab 05/26/18 Allergies Allergy/AdvReac Type Severity Reaction Status Date / Time Penicillins [PENICILLINS] Allergy Severe Swelling Verified 05/26/18 14:33 of Lip/Tongue/Throat Review of Systems Constitutional Denies chills, Denies fever(s), Denies lethargy and Denies weakness Eyes Denies change in vision, Denies eye discharge, Denies irritation and Denies loss of vision ENT Ears, Nose, Mouth, and Throat: Denies change in voice, Denies neck pain and Denies sore throat Cardiovascular Reports chest pain, Denies irregular heart rhythm, Denies lightheadedness, Denies palpitations, Denies dyspnea, Denies dyspnea on exertion and Denies orthopnea Respiratory Denies cough, Denies dyspnea, Denies dyspnea on exertion and Denies wheezing Gastrointestinal Gastrointestinal: Denies abdominal pain, Denies change in bowel habits, Denies diarrhea, Denies nausea and Denies vomiting Genitourinary Denies hematuria, Denies flank pain, Denies urinary incontinence and Denies urinary urgency Musculoskeletal Denies neck pain Integumentary/Breasts Denies pruritus, Denies erythema, Denies rash and Denies wounds Neurologic Denies confusion, Denies loss of vision and Denies weakness Psychiatric Denies anxiety, Denies confusion, Denies depression, Denies homicidal ideation and Denies suicidal ideation Endocrine Denies palpitations Hematologic/Lymphatic Denies easy bruising Allergic/Immunologic Denies wheezing [facility] Medical History Chronic left shoulder pain (Acute) Pulmonary embolism (Acute) CAD (coronary artery disease) (Chronic) Diabetes type 2, controlled (Chronic) HTN (hypertension) (Chronic) Hyperlipidemia (Chronic) Schizoaffective disorder (Chronic) Surgical History Hx of CABG (Chronic) Family History Mother Coronary artery disease Father No problems noted. Social History household members: family lives independently: Yes caregiver/support person: Yes housing: house Smoking Status: Former smoker alcohol intake: never substance use type: does not use Family History Mother Coronary artery disease Father No problems noted. Social History household members: family lives independently: Yes caregiver/support person: Yes housing: house Smoking Status: Former smoker alcohol intake: never substance use type: does not use Exam Narrative Exam Narrative: GENERAL: 57-year-old male, appears stated age. He is alert and oriented with GCS of 15, bit of a flat affect which is his baseline HEAD: abrasion and minimal contusion to the occiput, no depressed skull fracture EYES: Pupils equal round and reactive. Extraocular motions intact. No scleral icterus. No injection or drainage. ENT: Nose without bleeding, purulent drainage or septal hematoma. Throat without erythema, tonsillar hypertrophy or exudate. Uvula midline. Airway patent. NECK: Trachea midline. No JVD or lymphadenopathy. Supple, nontender, no meningeal signs. CARDIOVASCULAR: Regular rate and rhythm without murmurs, gallops, or rubs. sharp and stabbing anterior chest pain on palpation RESPIRATORY: Clear to auscultation. Breath sounds equal bilaterally. No wheezes, rales, or rhonchi. GASTROINTESTINAL: Abdomen soft, non-tender, nondistended. No hepato- splenomegaly, or palpable masses. No guarding. EXTREMITIES: No clubbing, cyanosis, or edema. No joint tenderness, effusion, or edema noted. BACK: Nontender without deformity or crepitance. No flank tenderness. NEURO: AOx3. SKIN: No rash or erythema. Initial Vital Signs Initial Vital Signs: Vital Signs Temperature 98.5 F 05/26/18 14:33 Pulse Rate 82 05/26/18 14:33 Respiratory Rate 20 05/26/18 14:33 Blood Pressure 164/80 H 05/26/18 14:33 Pulse Oximetry 93 05/26/18 14:33 Scores GCS Curtis coma scale eye opening: Spontaneous Curtis coma scale verbal response: Orientated Curtis coma scale motor response: Obey commands Curtis coma scale total score: 15 Course Orders Ordered: ED Orders 05/26/18 14:36 CT head/brain wo con Stat XR chest 1V Stat EKG-12 Lead Stat 05/26/18 14:54 Complete Blood Count AUTO DIFF Stat Comprehensive Metabolic Panel Stat Lipase Stat Partial Thromboplastin Time Stat Prothrombin Time INR Stat Troponin & CK Cardiac Panel Stat 05/26/18 17:33 Troponin I Stat Discontinued Medications Hydrocodone Bitart/Acetaminophen ([place] 5/325) 1 tab PO NOW ONE Stop: 05/26/18 18:35 Last Admin: 05/26/18 18:53 Dose: 1 tab Vital Signs - 8 hr 05/26/18 14:33 05/26/18 15:00 05/26/18 19:07 Temperature 98.5 F Pulse Rate 82 63 64 Respiratory Rate 20 26 H 15 Blood Pressure 164/80 H 125/65 Blood Pressure [Right Arm] 163/89 H Pulse Oximetry 93 98 100 MDM - Chest Pain Lab Data Result diagrams: 05/26/18 14:54 05/26/18 14:54 Lab Results 05/26/18 05/26/18 05/26/18 Range/Units 14:54 14:54 14:54 WBC 7.6 (4.5-11.0) X10^3/uL RBC 4.17 L (4.5-5.9) X10^6/uL Hgb 12.2 L (13.5-17.5) g/dL Hct 36.3 L (41-53) % MCV 87.2 (80-100) fL MCH 29.2 (26-34) PG MCHC 33.5 (30-36) % RDW 15.2 H (11.6-14.8) % Plt Count 186 (150-400) X10^3/uL Neut % (Auto) 67.2 (50-75) % Lymph % (Auto) 25.6 (25-40) % [place] % (Auto) 5.7 (3-14) % Eos % (Auto) 0.9 L (2-4) % Baso % (Auto) 0.6 (0-2) % Neut # (Auto) 5100 (0414-1008) /uL Lymph # (Auto) 2000 (0741-0255) /uL [place] # (Auto) 400 (0-900) /uL Eos # (Auto) 100 (0-450) /uL Baso # (Auto) 0 (0-100) /uL PT 20.1 H (10.1-12.7) SECONDS INR 1.7 H (0.9-1.3) APTT 34 D (26.4-36.2) SECONDS Sodium 139 (137-145) mmol/L Potassium 4.6 (3.4-5.1) mmol/L Chloride 104 (98-107) mmol/L Carbon Dioxide 27 (22-32) mmol/L BUN 12 (9-20) mg/dL Creatinine 1.20 (0.66-1.25) mg/dL Estimated GFR > 60.0 (>60) mL/min BUN/Creatinine Ratio 10.0 (6-22) Glucose 82 (70-100) mg/dL Calcium 9.0 (8.4-10.2) mg/dL Total Bilirubin 0.3 (0.2-1.3) mg/dL AST 18 (17-59) IU/L ALT 26 (21-72) IU/L Alkaline Phosphatase 61 (38-126) U/L Total Creatine Kinase 141 (55-170) U/L CK-MB (CK-2) 0.95 (<2.37) ng/mL CK-MB (CK-2) Rel Index 0.7 L (1.5-5.0) % Troponin I < 0.012 (0.01-0.034) ng/mL Total Protein 7.5 (6.3-8.2) g/dL Albumin 4.1 (3.5-5.0) g/dL Globulin 3.4 (1.7-4.1) g/dL Albumin/Globulin Ratio 1.2 (1.0-2.8) Lipase 25 (23-300) U/L 05/26/18 Range/Units 17:33 WBC (4.5-11.0) X10^3/uL RBC (4.5-5.9) X10^6/uL Hgb (13.5-17.5) g/dL Hct (41-53) % MCV (80-100) fL MCH (26-34) PG MCHC (30-36) % RDW (11.6-14.8) % Plt Count (150-400) X10^3/uL Neut % (Auto) (50-75) % Lymph % (Auto) (25-40) % [place] % (Auto) (3-14) % Eos % (Auto) (2-4) % Baso % (Auto) (0-2) % Neut # (Auto) (9590-2389) /uL Lymph # (Auto) (9201-1296) /uL [place] # (Auto) (0-900) /uL Eos # (Auto) (0-450) /uL Baso # (Auto) (0-100) /uL PT (10.1-12.7) SECONDS INR (0.9-1.3) APTT (26.4-36.2) SECONDS Sodium (137-145) mmol/L Potassium (3.4-5.1) mmol/L Chloride (98-107) mmol/L Carbon Dioxide (22-32) mmol/L BUN (9-20) mg/dL Creatinine (0.66-1.25) mg/dL Estimated GFR (>60) mL/min BUN/Creatinine Ratio (6-22) Glucose (70-100) mg/dL Calcium (8.4-10.2) mg/dL Total Bilirubin (0.2-1.3) mg/dL AST (17-59) IU/L ALT (21-72) IU/L Alkaline Phosphatase (38-126) U/L Total Creatine Kinase (55-170) U/L CK-MB (CK-2) (<2.37) ng/mL CK-MB (CK-2) Rel Index (1.5-5.0) % Troponin I < 0.012 (0.01-0.034) ng/mL Total Protein (6.3-8.2) g/dL Albumin (3.5-5.0) g/dL Globulin (1.7-4.1) g/dL Albumin/Globulin Ratio (1.0-2.8) Lipase (23-300) U/L Imaging Data CT scan - head: Radiologist's impression: [address] [address] [address] Scan Report Signed Patient: Luis E Pierre RMR#: [id number] : 1Acct:[id number] Age/Sex: 57 / MDate of Service: 05/26/18 Loc: ED Accession Number: [id number] Procedure: CT head/brain wo con Ordering Provider: Gera Colindres D.O. PROCEDURE: CT HEAD/BRAIN WO CON INDICATIONS: head injury on coumadin TECHNIQUE: Noncontrast 4.5 mm thick angled axial sections acquired from the foramen magnum to the vertex, with coronal and sagittal reformats. For radiation dose reduction, the following was used: automated exposure control, adjustment of mA and/or kV according to patient size. COMPARISON: [facility], CT, CT HEAD/BRAIN WO CON, 01/28/2018, 17:16. FINDINGS: Image quality: Diagnostic. CSF spaces: Basal cisterns are patent. No extra-axial fluid collections. Ventricles are normal in size and shape. Brain: No midline shift. No intracranial masses or hemorrhage. Wade-white matter interface is normal. Skull and face: Calvarium and visualized facial bones are intact, without suspicious lesions. Sinuses: Opacification of the nearly all of the right maxillary sinus is present. There is a because retention cyst versus mucosal polyp involving the inferior left maxillary sinus. Otherwise, the imaged paranasal sinuses and mastoid air cells are clear. IMPRESSION: 1. No acute intracranial hemorrhage. 2. Maxillary sinus disease. Dictated by: Gold Carreon M.D. on 05/26/2018 at 13:53 Approved by: Gold Carreon M.D. on 05/26/2018 at 13:55 Discharge Plan Departure Patient Disposition: Home Clinical Impression: Atypical chest pain Contusion of scalp Qualifiers: Encounter type: initial encounter Qualified Code(s): S00.03XA - Contusion of scalp, initial encounter Discharge Date/Time: 02/14/19 19:11 Interventions: ED Discharge Assessment Last Done: 05/26/18 19:07 Instructions: DI for Atypical Chest Pain, DI for Contusion Activity Restrictions/Additional Instructions: *You have been diagnosed with [atypical chest pain, costochondritis and scalp contusion ] *What to do: *Take medications as directed *Follow up with your primary care provider in 2-3 days, call for an appointment. Let them know you were seen in the Emergency Department and that we ask that you be seen in follow up *Return to ER if you should have any new, worsening or concerning symptoms, Prescriptions: New hydrocodone-acetaminophen 5-325 mg tablet 1 tab PO Q4-6H PRN (Reason: pain) Qty: 10 RF: 0 No Action divalproex [Depakote] 500 mg tablet,delayed release (DR/EC) 500 mg PO QAM Qty: 90 RF: 3 lisinopril 10 mg tablet 10 mg PO DAILY RF: 0 tamsulosin 0.4 mg capsule 0.4 mg PO DAILY RF: 0 benztropine 1 mg tablet 1 mg PO BID Qty: 180 RF: 3 aspirin 81 mg Tablet,Delayed Release (Dr/Ec) 81 mg PO DAILY Qty: 0 RF: 0 metformin [Glucophage XR] 500 MG tablet extended release 24 hr 500 mg PO BIDCC Qty: 60 RF: 0 isosorbide mononitrate 30 mg tablet extended release 24 hr 60 mg PO QAM RF: 0 acetaminophen 325 mg capsule 325 mg PO DIRECTED RF: 0 nitroglycerin [Nitrostat] 0.4 mg Tablet, Sublingual 0.4 mg Sublingual Q5 MIN PRN PRN (Reason: Chest Pain) RF: 0 insulin glargine 100 unit/mL (3 mL) Insulin Pen 50 units Sub-Q DAILY RF: 0 atorvastatin 40 mg Tablet 40 mg PO BEDTIME RF: 0 levothyroxine [Synthroid] 75 mcg Tablet 75 mcg PO DAILY RF: 0 insulin aspart U-100 100 unit/mL Insulin Pen 30 - 35 units Sub-Q TIDWM RF: 0 fluoxetine 40 mg Capsule 40 mg PO DAILY RF: 0 furosemide 40 mg Tablet 40 mg PO DAILY RF: 0 sennosides [senna] 8.6 mg Tablet 8.6 mg PO DIRECTED RF: 0 warfarin 2 mg tablet 6 mg PO QPM RF: 0 warfarin 2 mg Tablet 2 mg PO DAILY RF: 0 hydrochlorothiazide 25 mg Tablet 25 mg PO DAILY RF: 0 cholecalciferol (vitamin D3) [Vitamin D3] 5,000 unit Tablet 5,000 unit PO DAILY RF: 0 fluoxetine 60 mg Tablet 80 mg PO DAILY RF: 0 metoprolol succinate [Toprol XL] 25 MG tablet extended release 24 hr 25 mg PO DAILY RF: 0 ziprasidone HCl 60 mg capsule 60 mg PO BID RF: 0 Referrals: Jocelynn Juárez [Primary Care Provider] -
== END 2018-05-26 19:11 | disposition home or self-care (01) ==
PROVIDERS: Emergency Provider Emergency Medicine; PCP Urology
DX: R07.89 Other chest pain (principal); S00.03XA Contusion of scalp, initial encounter; W01.0XXA Fall on same level from slipping, tripping and stumbling without subsequent striking against object, initial encounter
CPT/HCPCS: 36415; 70450; 71045; 80053; 82550; 82553; 83690; 84484; 85025; 85610; 85730; 93005; 99282; 99285

== ENCOUNTER → 2018-07-26 14:32 | Outpatient (CLI) | payer OTHER, SELFPAY ==
[2018-01-31 15:30] VITALS: BMI 47.2
[2018-07-26 15:27] LABS: INR 1.5 (0.9-1.3)
== END ==
PROVIDERS: PCP Family Medicine; Visit Provider Family Medicine
DX: E11.42 Type 2 diabetes mellitus with diabetic polyneuropathy (principal)
CPT/HCPCS: 36415; 85610

== ENCOUNTER → 2018-08-03 09:49 | Outpatient (CLI) | payer OTHER, SELFPAY ==
[2018-01-31 15:30] VITALS: BMI 47.2
[2018-08-03 12:18] LABS: INR 3.9 (0.9-1.3); Prothrombin Time 46.2 SECONDS (10.1-12.7)
== END ==
PROVIDERS: PCP Family Medicine; Visit Provider Family Medicine
DX: Z79.01 Long term (current) use of anticoagulants (principal)
CPT/HCPCS: 36415; 85610

== ENCOUNTER 2018-08-08 18:32 | Emergency (ER) | payer OTHER, SELFPAY ==
[2018-01-31 15:30] VITALS: BMI 47.2
[2018-08-08 18:34] VITALS: BP 168/85; PULSE 70; RESP 14; TEMP 37; O2SAT 97; BMI 41.7
[2018-08-08 19:06] LABS: Add Manual Diff / Slide Review NO; Basophils Absolute Auto 100 /uL (0-100); Basophils Percent Auto 0.8 % (0-2); Eosinophils Absolute Auto 100 /uL (0-450); Eosinophils Percent Auto 0.8 % (2-4); Hematocrit 37.7 % (41-53); Lymphocytes Absolute Auto 2300 /uL (1100-4500); Lymphocytes Percent Auto 33.9 % (25-40); Mean Corpuscular HGB Conc 31.9 % (30-36); Mean Corpuscular Hemoglobin 27.8 PG (26-34); Mean Corpuscular Volume 87.1 fL (80-100); Monocytes Absolute Auto 600 /uL (0-900); Monocytes Percent Auto 9.3 % (3-14); Neutrophils Absolute Auto 3800 /uL (1500-7000); Neutrophils Percent Auto 55.2 % (50-75); Platelet Count 151 X10^3/uL (150-400); Red Blood Cell Count 4.33 X10^6/uL (4.5-5.9); Red Cell Distribution Width 15.8 % (11.6-14.8); White Blood Cell Count 6.8 X10^3/uL (4.5-11.0)
[2018-08-08 19:16] LABS: INR 3.8 (0.9-1.3); Prothrombin Time 44.9 SECONDS (10.1-12.7)
[2018-08-08 19:25] VITALS: BP 150/72; PULSE 88; RESP 18; O2SAT 98
--- NOTE | 2018-08-08 19:29 | ED.DENTAL ---
HPI - Dental/Oral <Kell Harp PA-C - Last Filed: 08/08/18 22:31> General Chief complaint: Dental/Oral Stated complaint: BLEEDING AFTER TEETH SURGERY Time Seen by Provider: 08/08/18 19:04 Source: patient Mode of arrival: ambulatory Limitations: no limitations History of Present Illness HPI Narrative: This 57-year-old male comes in due to bleeding after dental procedure. He had a left upper tooth extracted earlier this afternoon and states he had a lot of bleeding earlier that would not seem to stop. He has been applying gauze with pressure and nurse noted this seems to have stopped now. He is not having any new pain. he notes that he and his PCP have been trying to get his INR to target but has been difficult and has been elevated, so concerned that this contributes. He denies any other concerns or complaints on systems review. Related Data Home Medications Medication Instructions Recorded Confirmed aspirin 81 mg PO DAILY #0 03/17/11 07/15/18 metformin [Glucophage XR] 500 mg PO BIDCC #60 tab 12/25/16 07/15/18 atorvastatin 40 mg PO BEDTIME 10/12/17 07/15/18 insulin aspart U-100 30 - 35 units SUB-Q TIDWM 10/12/17 07/15/18 insulin glargine 50 units SUB-Q DAILY 10/12/17 07/15/18 levothyroxine [Synthroid] 75 mcg PO DAILY 10/12/17 07/15/18 nitroglycerin [Nitrostat] 0.4 mg SUBLINGUAL Q5 MIN PRN PRN 10/12/17 07/15/18 lisinopril 10 mg tablet 10 mg PO DAILY 02/07/18 07/15/18 tamsulosin 0.4 mg capsule 0.4 mg PO DAILY 02/07/18 07/15/18 acetaminophen 325 mg capsule 325 mg PO DIRECTED 02/18/18 07/15/18 isosorbide mononitrate ER 30 mg 60 mg PO QAM tab 02/18/18 07/15/18 tablet,extended release 24 hr cholecalciferol (vitamin D3) 5,000 unit PO DAILY 05/26/18 07/15/18 [Vitamin D3] furosemide 40 mg PO DAILY 05/26/18 07/15/18 hydrochlorothiazide 25 mg PO DAILY 05/26/18 07/15/18 metoprolol succinate [Toprol XL] 25 mg PO DAILY 05/26/18 07/15/18 sennosides [senna] 8.6 mg PO DIRECTED 05/26/18 07/15/18 warfarin 2 mg PO DAILY 05/26/18 07/15/18 warfarin 6 mg PO QPM 05/26/18 07/15/18 ResMed AirCurve 10 BIPAP #1 ea 06/09/18 07/15/18 Previous Rx's Medication Instructions Recorded benztropine 0.5 mg tablet 0.5 mg PO BID #180 tab 05/31/18 divalproex 500 mg tablet,delayed See Rx Instructions PO QAM #480 tab 05/31/18 release fluoxetine 40 mg capsule 80 mg PO DAILY #180 cap 05/31/18 ziprasidone 80 mg capsule 80 mg PO BEDTIME #90 cap 05/31/18 gabapentin 300 mg capsule 600 mg PO BEDTIME #180 cap 08/05/18 Allergies Allergy/AdvReac Type Severity Reaction Status Date / Time Penicillins [PENICILLINS] Allergy Severe Swelling Verified 08/08/18 18:37 of Lip/Tongue/Throat Review of Systems <Kell Harp PA-C - Last Filed: 08/08/18 22:31> Review of Systems ROS Unobtainable: All systems reviewed & are unremarkable except as noted in HPI and below PFSH <Kell Harp PA-C - Last Filed: 08/08/18 22:31> Medical History Obstructive sleep apnea of adult (Chronic) Chronic left shoulder pain (Acute) Pulmonary embolism (Acute) CAD (coronary artery disease) (Chronic) Diabetes type 2, controlled (Chronic) HTN (hypertension) (Chronic) Hyperlipidemia (Chronic) Schizoaffective disorder (Chronic) Family History Mother Coronary artery disease Father No problems noted. Social History marital status: unmarried,single details: lives with his parents household members: family lives independently: Yes caregiver/support person: Yes housing: house pets and animals: Yes Smoking Status: Former smoker alcohol intake: never substance use type: does not use Exam <SURAJ Valverde Last Filed: 08/08/18 22:31> Narrative Exam Narrative: GENERAL APPEARANCE: Patient sitting comfortably, in no distress. HEENT: PERRL, EOMI, there is a tiny amount of scab on the left upper outer lip, no active bleeding from dental extraction site LUNGS: Clear to auscultation bilaterally. HEART: Rate and rhythm regular without murmur, normal S1 and S2, no S3 or S4. Initial Vital Signs Initial Vital Signs: Vital Signs Temperature 98.6 F 08/08/18 18:34 Pulse Rate 70 08/08/18 18:34 Respiratory Rate 14 08/08/18 18:34 Blood Pressure 168/85 H 08/08/18 18:34 Pulse Oximetry 97 08/08/18 18:34 <DO Rosy Bueno Last Filed: 08/09/18 04:02> Initial Vital Signs Initial Vital Signs: Vital Signs Temperature 98.6 F 08/08/18 18:34 Pulse Rate 70 08/08/18 18:34 Respiratory Rate 14 08/08/18 18:34 Blood Pressure 168/85 H 08/08/18 18:34 Pulse Oximetry 97 08/08/18 18:34 Course <SURAJ Valverde Last Filed: 08/08/18 22:31> Orders Ordered: ED Orders 08/08/18 18:44 Complete Blood Count AUTO DIFF Stat Prothrombin Time INR Stat Vital Signs - 8 hr 08/08/18 18:34 08/08/18 19:25 Temperature 98.6 F Pulse Rate 70 88 Respiratory Rate 14 18 Blood Pressure 168/85 H Blood Pressure [Left Arm] 150/72 H Pulse Oximetry 97 98 <DO Rosy Bueno Last Filed: 08/09/18 04:02> Orders Ordered: ED Orders 08/08/18 18:44 Complete Blood Count AUTO DIFF Stat Prothrombin Time INR Stat Vital Signs - 8 hr 08/08/18 18:34 08/08/18 19:25 Temperature 98.6 F Pulse Rate 70 88 Respiratory Rate 14 18 Blood Pressure 168/85 H Blood Pressure [Left Arm] 150/72 H Pulse Oximetry 97 98 MDM - Dental/Oral <SURAJ Valverde Last Filed: 08/08/18 22:31> Lab Data Attestation: I reviewed the patient's lab results. Result diagrams: 08/08/18 18:44 Lab Results 08/08/18 08/08/18 Range/Units 18:44 18:44 WBC 6.8 (4.5-11.0) X10^3/uL RBC 4.33 L (4.5-5.9) X10^6/uL Hgb 12.0 L (13.5-17.5) g/dL Hct 37.7 L (41-53) % MCV 87.1 (80-100) fL MCH 27.8 (26-34) PG MCHC 31.9 (30-36) % RDW 15.8 H (11.6-14.8) % Plt Count 151 (150-400) X10^3/uL Neut % (Auto) 55.2 (50-75) % Lymph % (Auto) 33.9 (25-40) % [place] % (Auto) 9.3 (3-14) % Eos % (Auto) 0.8 L (2-4) % Baso % (Auto) 0.8 (0-2) % Neut # (Auto) 3800 (2153-1773) /uL Lymph # (Auto) 2300 (0658-8188) /uL [place] # (Auto) 600 (0-900) /uL Eos # (Auto) 100 (0-450) /uL Baso # (Auto) 100 (0-100) /uL PT 44.9 H (10.1-12.7) SECONDS INR 3.8 H (0.9-1.3) <Gera Colindres DO - Last Filed: 08/09/18 04:02> Lab Data Lab Results 08/08/18 08/08/18 Range/Units 18:44 18:44 WBC 6.8 (4.5-11.0) X10^3/uL RBC 4.33 L (4.5-5.9) X10^6/uL Hgb 12.0 L (13.5-17.5) g/dL Hct 37.7 L (41-53) % MCV 87.1 (80-100) fL MCH 27.8 (26-34) PG MCHC 31.9 (30-36) % RDW 15.8 H (11.6-14.8) % Plt Count 151 (150-400) X10^3/uL Neut % (Auto) 55.2 (50-75) % Lymph % (Auto) 33.9 (25-40) % [place] % (Auto) 9.3 (3-14) % Eos % (Auto) 0.8 L (2-4) % Baso % (Auto) 0.8 (0-2) % Neut # (Auto) 3800 (2593-4112) /uL Lymph # (Auto) 2300 (3535-5985) /uL [place] # (Auto) 600 (0-900) /uL Eos # (Auto) 100 (0-450) /uL Baso # (Auto) 100 (0-100) /uL PT 44.9 H (10.1-12.7) SECONDS INR 3.8 H (0.9-1.3) Discharge Plan Departure Patient Disposition: Home Clinical Impression: Surgical wound hemorrhage after dental procedure, Supratherapeutic INR Discharge Date/Time: 08/08/18 19:58 Interventions: ED Discharge Assessment Last Done: 08/08/18 19:57 Activity Restrictions/Additional Instructions: Since your tooth has stopped bleeding now and can monitor at home. Please use some of the cotton pledgets that I gave you if you have more oozing, or you can use gauze and keep pressure on the wound like you did before. Avoid any hard or chewy foods. Your INR (Warfarin/Coumadin) level is a little bit high today at 3.8, so please skip your next does, and talk with Dr. Garland about adjusting your medicine again to try to get this to your target goal. Please return as we talked about if you have severe bleeding or feeling weak or dizzy. Prescriptions: No Action lisinopril 10 mg tablet 10 mg PO DAILY RF: 0 tamsulosin 0.4 mg capsule 0.4 mg PO DAILY RF: 0 ziprasidone HCl 80 mg capsule 80 mg PO BEDTIME Qty: 90 RF: 3 divalproex [Depakote] 500 mg tablet,delayed release (DR/EC) See Rx Instructions PO QAM Qty: 480 RF: 3 benztropine 0.5 mg tablet 0.5 mg PO BID Qty: 180 RF: 3 fluoxetine 40 mg capsule 80 mg PO DAILY Qty: 180 RF: 3 gabapentin 300 mg capsule 600 mg PO BEDTIME Qty: 180 RF: 3 aspirin 81 mg Tablet,Delayed Release (Dr/Ec) 81 mg PO DAILY Qty: 0 RF: 0 metformin [Glucophage XR] 500 MG tablet extended release 24 hr 500 mg PO BIDCC Qty: 60 RF: 0 isosorbide mononitrate 30 mg tablet extended release 24 hr 60 mg PO QAM RF: 0 acetaminophen 325 mg capsule 325 mg PO DIRECTED RF: 0 nitroglycerin [Nitrostat] 0.4 mg Tablet, Sublingual 0.4 mg Sublingual Q5 MIN PRN PRN (Reason: Chest Pain) RF: 0 insulin glargine 100 unit/mL (3 mL) Insulin Pen 50 units Sub-Q DAILY RF: 0 atorvastatin 40 mg Tablet 40 mg PO BEDTIME RF: 0 levothyroxine [Synthroid] 75 mcg Tablet 75 mcg PO DAILY RF: 0 insulin aspart U-100 100 unit/mL Insulin Pen 30 - 35 units Sub-Q TIDWM RF: 0 furosemide 40 mg Tablet 40 mg PO DAILY RF: 0 sennosides [senna] 8.6 mg Tablet 8.6 mg PO DIRECTED RF: 0 warfarin 2 mg tablet 6 mg PO QPM RF: 0 warfarin 2 mg Tablet 2 mg PO DAILY RF: 0 hydrochlorothiazide 25 mg Tablet 25 mg PO DAILY RF: 0 cholecalciferol (vitamin D3) [Vitamin D3] 5,000 unit Tablet 5,000 unit PO DAILY RF: 0 metoprolol succinate [Toprol XL] 25 MG tablet extended release 24 hr 25 mg PO DAILY RF: 0 ResMed AirCurve 10 BIPAP Qty: 1 RF: 0 Referrals: Sandra Garland [Primary Care Provider] - <Gera Colindres DO - Last Filed: 08/09/18 04:02> Cosign ED Attending Meredith Attestation: I was immediately available in the department for consultation. Documentation has been reviewed. I agree with assessment and plan.
== END 2018-08-08 19:58 | disposition home or self-care (01) ==
PROVIDERS: Emergency Medicine; Emergency Provider Internal Medicine; PCP Family Medicine
DX: L76.22 Postprocedural hemorrhage of skin and subcutaneous tissue following other procedure (principal); Z98.818 Other dental procedure status
CPT/HCPCS: 36415; 85025; 85610; 99282; 99283

== ENCOUNTER 2018-10-13 10:25 | Emergency (ER) | payer OTHER, SELFPAY ==
[2018-01-31 15:30] VITALS: BMI 47.2
[2018-10-13] VITALS (17 sets, daily range): BP systolic 112–175; BP diastolic 77–110; PULSE 64–96; RESP 16–29; O2SAT 97–100; BMI 39.5
--- NOTE | 2018-10-13 10:34 | DI.RAD.S_ITS ---
PROCEDURE: XR CHEST 1V INDICATIONS: chest pain TECHNIQUE: One view of the chest was acquired. COMPARISON: None. FINDINGS: Surgical changes and devices: Median sternotomy wires are seen. Lungs and pleura: Lungs are clear. No pleural effusions or pneumothorax. Mediastinum: Mediastinal contours appear normal. Heart size is enlarged. Bones and chest wall: No suspicious bony lesions. Overlying soft tissues appear unremarkable. IMPRESSION: No acute cardiopulmonary pathology. Dictated by: Filiberto Nino M.D. on 10/13/2018 at 10:45 Approved by: Filiberto Nino M.D. on 10/13/2018 at 10:46
--- NOTE | 2018-10-13 10:40 | ED.CHESTPAIN ---
HPI - Chest Pain General Chief Complaint: Chest Pain Stated Complaint: chest pain,dry throat Time Seen by Provider: 10/13/18 10:34 Source: patient Mode of arrival: ambulatory Limitations: no limitations History of Present Illness HPI narrative: Patient is a 58-year-old male with history of 5 vessel CABG presenting with chest discomfort ongoing for 2 days. He says it will come from a sleep seems to be in the center of his chest nonradiating, nothing makes it better worse or nitroglycerin which he did not take. Constant in nature He states he has had a productive cough which is new. He denies shortness of breath. He denies any fever or chills. complaint: chest pain Onset (ago): day(s) (2) Duration: constant Onset: during rest Pain location: substernal Severity: moderate Relieving factors: nothing Exacerbating factors: nothing Related Data Home Medications Medication Instructions Recorded Confirmed aspirin 81 mg PO DAILY #0 03/17/11 09/19/18 metformin [Glucophage XR] 500 mg PO BIDCC #60 tab 12/25/16 09/19/18 atorvastatin 40 mg PO BEDTIME 10/12/17 09/19/18 insulin aspart U-100 30 - 35 units SUB-Q TIDWM 10/12/17 09/19/18 insulin glargine 50 units SUB-Q DAILY 10/12/17 09/19/18 levothyroxine [Synthroid] 75 mcg PO DAILY 10/12/17 09/19/18 nitroglycerin [Nitrostat] 0.4 mg SUBLINGUAL Q5 MIN PRN PRN 10/12/17 09/19/18 lisinopril 10 mg tablet 10 mg PO DAILY 02/07/18 09/19/18 tamsulosin 0.4 mg capsule 0.4 mg PO DAILY 02/07/18 09/19/18 acetaminophen 325 mg capsule 325 mg PO DIRECTED 02/18/18 09/19/18 isosorbide mononitrate ER 30 mg 60 mg PO QAM tab 02/18/18 09/19/18 tablet,extended release 24 hr cholecalciferol (vitamin D3) 5,000 unit PO DAILY 05/26/18 09/19/18 [Vitamin D3] furosemide 40 mg PO DAILY 05/26/18 09/19/18 hydrochlorothiazide 25 mg PO DAILY 05/26/18 09/19/18 metoprolol succinate [Toprol XL] 25 mg PO DAILY 05/26/18 09/19/18 sennosides [senna] 8.6 mg PO DIRECTED 05/26/18 09/19/18 warfarin 2 mg PO DAILY 05/26/18 09/19/18 warfarin 6 mg PO QPM 05/26/18 09/19/18 ResMed AirCurve 10 BIPAP #1 ea 06/09/18 09/19/18 tramadol 50 mg tablet 50 mg PO BID PRN 09/19/18 09/19/18 Previous Rx's Medication Instructions Recorded benztropine 0.5 mg tablet 0.5 mg PO BID #180 tab 05/31/18 divalproex 500 mg tablet,delayed See Rx Instructions PO QAM #480 tab 05/31/18 release fluoxetine 40 mg capsule 80 mg PO DAILY #180 cap 05/31/18 ziprasidone 80 mg capsule 80 mg PO BEDTIME #90 cap 05/31/18 gabapentin 300 mg capsule 600 mg PO BEDTIME #180 cap 08/05/18 Allergies Allergy/AdvReac Type Severity Reaction Status Date / Time Penicillins [PENICILLINS] Allergy Severe Swelling Verified 10/13/18 10:29 of Lip/Tongue/Throat Review of Systems Review of Systems ROS Unobtainable: All systems reviewed & are unremarkable except as noted in HPI and below Constitutional Denies chills, Denies fever(s), Denies lethargy and Denies weakness Eyes Denies change in vision, Denies eye discharge, Denies irritation and Denies loss of vision Cardiovascular Reports as per HPI Respiratory Reports cough Gastrointestinal Gastrointestinal: Denies abdominal pain, Denies change in bowel habits, Denies diarrhea, Reports nausea and Denies vomiting Genitourinary Denies hematuria, Denies flank pain, Denies urinary incontinence and Denies urinary urgency Musculoskeletal Denies back pain, Denies muscle weakness, Denies numbness and Denies tingling Integumentary/Breasts Denies pruritus, Denies erythema, Denies rash and Denies wounds Neurologic Denies loss of vision, Denies numbness, Denies tingling and Denies weakness [facility] Medical History Obstructive sleep apnea of adult (Chronic) Chronic left shoulder pain (Acute) Pulmonary embolism (Acute) CAD (coronary artery disease) (Chronic) Diabetes type 2, controlled (Chronic) HTN (hypertension) (Chronic) Hyperlipidemia (Chronic) Schizoaffective disorder (Chronic) Surgical History Hx of CABG (Chronic) Family History Mother Coronary artery disease Father No problems noted. Social History marital status: unmarried,single details: lives with his parents household members: family lives independently: Yes caregiver/support person: Yes housing: house pets and animals: Yes Smoking Status: Former smoker alcohol intake: never substance use type: does not use Family History Mother Coronary artery disease Father No problems noted. Social History marital status: unmarried,single details: lives with his parents household members: family lives independently: Yes caregiver/support person: Yes housing: house pets and animals: Yes Smoking Status: Former smoker alcohol intake: never substance use type: does not use Exam Initial Vital Signs Initial Vital Signs: Vital Signs Pulse Rate 80 10/13/18 10:30 Respiratory Rate 16 10/13/18 10:30 Blood Pressure 171/110 H 10/13/18 10:30 Pulse Oximetry 100 10/13/18 10:30 GENERAL: Well-appearing, well-nourished and in no acute distress. HEENT: Head atraumatic,EOMI, pupils reactive CARDIOVASCULAR: Regular rate and rhythm without murmurs, rubs or gallops. Scar noted on chest RESPIRATORY: Breath sounds equal bilaterally, no wheezes rales or rhonchi. ABDOMEN: Soft, nontender. Normoactive bowel sounds all 4 quadrants. No guarding or rebound. EXTREMITIES: Normal range of motion, no clubbing or edema. Neurovascularly intact NEUROLOGICAL: Alert and oriented x4.Normal gait and speech. Cranial nerves II through XII grossly intact. SKIN: Warm, dry, no laceration, no petechiae, no rashes or lesions. Course Orders Ordered: Discontinued Medications Sodium Chloride (Normal Saline 0.9%) 1,000 mls @ 150 mls/hr IV CONT JOSE L Last Infusion: 10/13/18 17:20 Dose: 0 mls/hr Admin: 10/13/18 10:57 Dose: 150 mls/hr Morphine Sulfate (Morphine) 2 mg IV NOW ONE Stop: 10/13/18 12:46 Last Admin: 10/13/18 13:31 Dose: 2 mg Morphine Sulfate (Morphine) 2 mg IV NOW ONE Stop: 10/13/18 15:06 Last Admin: 10/13/18 15:15 Dose: 2 mg Nitroglycerin (Nitrostat) 0.4 mg SL [id number] PRN PRN Reason: Chest Pain Last Admin: 10/13/18 10:57 Dose: 0.4 mg Admin: 10/13/18 10:51 Dose: 0.4 mg Admin: 10/13/18 10:44 Dose: 0.4 mg Pantoprazole Sodium (Protonix) 40 mg IV NOW ONE Stop: 10/13/18 12:46 Last Admin: 10/13/18 13:31 Dose: 40 mg Consultations Consultation #1: Spoke with hospitalist at [facility] who updated patient's symptoms test results actually recommends outpatient follow-up. Time: 14:50 Consultation #2: [place] doctor crews, updated patient's symptoms. Unfortunately [place] does not have any beds may transfer to [facility] or any other facility. Time: 15:25 Consultation #3: Cardiology Dr. Kelly, at [facility], recommends outpatient stress testing. Unlikely to be cardiac at this time. Time: 15:48 Vital Signs - 8 hr 10/13/18 10:30 10/13/18 10:44 10/13/18 10:49 Pulse Rate 80 68 87 Respiratory Rate 16 23 Blood Pressure 171/110 H 175/98 H Blood Pressure [Left Arm] 143/92 H Pulse Oximetry 100 97 10/13/18 10:51 10/13/18 10:52 10/13/18 10:57 Pulse Rate 86 83 86 Respiratory Rate 23 Blood Pressure 143/92 H 143/92 H 133/83 Blood Pressure [Left Arm] Pulse Oximetry 97 10/13/18 11:01 10/13/18 11:04 10/13/18 12:03 Pulse Rate 92 H 82 66 Respiratory Rate 26 H 24 Blood Pressure 128/77 Blood Pressure [Left Arm] 128/77 112/97 H Pulse Oximetry 97 100 10/13/18 12:30 10/13/18 13:27 10/13/18 13:30 Pulse Rate 68 64 65 Respiratory Rate 25 H 26 H 25 H Blood Pressure Blood Pressure [Left Arm] 149/92 H 157/90 H 155/90 H Pulse Oximetry 100 100 99 10/13/18 14:00 10/13/18 14:48 10/13/18 15:00 Pulse Rate 78 96 H 64 Respiratory Rate 16 29 H 29 H Blood Pressure Blood Pressure [Left Arm] 173/101 H 158/96 H 172/91 H Pulse Oximetry 100 100 100 10/13/18 15:52 10/13/18 16:31 Pulse Rate 72 70 Respiratory Rate 24 25 H Blood Pressure Blood Pressure [Left Arm] 161/92 H 150/89 H Pulse Oximetry 98 MDM - Chest Pain Lab Data Attestation: I reviewed the patient's lab results. Result diagrams: 10/13/18 10:35 10/13/18 10:35 Lab Results 10/13/18 10/13/18 10/13/18 Range/Units 10:35 10:35 10:35 WBC 5.1 (4.5-11.0) X10^3/uL RBC 5.33 (4.5-5.9) X10^6/uL Hgb 14.9 (13.5-17.5) g/dL Hct 45.4 (41-53) % MCV 85.2 (80-100) fL MCH 27.9 (26-34) PG MCHC 32.7 (30-36) % RDW 16.2 H (11.6-14.8) % Plt Count 173 (150-400) X10^3/uL Neut % (Auto) 47.4 L (50-75) % Lymph % (Auto) 44.9 H (25-40) % [place] % (Auto) 5.8 (3-14) % Eos % (Auto) 1.5 L (2-4) % Baso % (Auto) 0.4 (0-2) % Neut # (Auto) 2400 (2005-3702) /uL Lymph # (Auto) 2300 (2009-4333) /uL [place] # (Auto) 300 (0-900) /uL Eos # (Auto) 100 (0-450) /uL Baso # (Auto) 0 (0-100) /uL PT 68.6 H (10.1-12.7) SECONDS INR 5.7 H* (0.9-1.3) APTT 63 H D (26.4-36.2) SECONDS Sodium 141 (137-145) mmol/L Potassium 4.5 (3.4-5.1) mmol/L Chloride 104 (98-107) mmol/L Carbon Dioxide 26 (22-32) mmol/L BUN 12 (9-20) mg/dL Creatinine 1.00 (0.66-1.25) mg/dL Estimated GFR > 60.0 (>60) mL/min BUN/Creatinine Ratio 12.0 (6-22) Glucose 147 H (70-100) mg/dL Calcium 9.8 (8.4-10.2) mg/dL Total Bilirubin 0.6 (0.2-1.3) mg/dL AST 28 (17-59) IU/L ALT 25 (21-72) IU/L Alkaline Phosphatase 66 (38-126) U/L Total Creatine Kinase 154 (55-170) U/L CK-MB (CK-2) 1.41 (<2.37) ng/mL CK-MB (CK-2) Rel Index 0.9 L (1.5-5.0) % Troponin I < 0.012 (0.01-0.034) ng/mL B-Natriuretic Peptide < 100 (<100) Total Protein 7.9 (6.3-8.2) g/dL Albumin 4.4 (3.5-5.0) g/dL Globulin 3.5 (1.7-4.1) g/dL Albumin/Globulin Ratio 1.3 (1.0-2.8) Lipase 43 (23-300) U/L 10/13/18 Range/Units 13:43 WBC (4.5-11.0) X10^3/uL RBC (4.5-5.9) X10^6/uL Hgb (13.5-17.5) g/dL Hct (41-53) % MCV (80-100) fL MCH (26-34) PG MCHC (30-36) % RDW (11.6-14.8) % Plt Count (150-400) X10^3/uL Neut % (Auto) (50-75) % Lymph % (Auto) (25-40) % [place] % (Auto) (3-14) % Eos % (Auto) (2-4) % Baso % (Auto) (0-2) % Neut # (Auto) (3360-1516) /uL Lymph # (Auto) (4291-4527) /uL [place] # (Auto) (0-900) /uL Eos # (Auto) (0-450) /uL Baso # (Auto) (0-100) /uL PT (10.1-12.7) SECONDS INR (0.9-1.3) APTT (26.4-36.2) SECONDS Sodium (137-145) mmol/L Potassium (3.4-5.1) mmol/L Chloride (98-107) mmol/L Carbon Dioxide (22-32) mmol/L BUN (9-20) mg/dL Creatinine (0.66-1.25) mg/dL Estimated GFR (>60) mL/min BUN/Creatinine Ratio (6-22) Glucose (70-100) mg/dL Calcium (8.4-10.2) mg/dL Total Bilirubin (0.2-1.3) mg/dL AST (17-59) IU/L ALT (21-72) IU/L Alkaline Phosphatase (38-126) U/L Total Creatine Kinase (55-170) U/L CK-MB (CK-2) (<2.37) ng/mL CK-MB (CK-2) Rel Index (1.5-5.0) % Troponin I < 0.012 (0.01-0.034) ng/mL B-Natriuretic Peptide (<100) Total Protein (6.3-8.2) g/dL Albumin (3.5-5.0) g/dL Globulin (1.7-4.1) g/dL Albumin/Globulin Ratio (1.0-2.8) Lipase (23-300) U/L Imaging Data Chest x-ray: Radiologist's impression: PROCEDURE: XR CHEST 1V INDICATIONS: chest pain TECHNIQUE: One view of the chest was acquired. COMPARISON: None. FINDINGS: Surgical changes and devices: Median sternotomy wires are seen. Lungs and pleura: Lungs are clear. No pleural effusions or pneumothorax. Mediastinum: Mediastinal contours appear normal. Heart size is enlarged. Bones and chest wall: No suspicious bony lesions. Overlying soft tissues appear unremarkable. IMPRESSION: No acute cardiopulmonary pathology. Dictated by: Filiberto Nino M.D. on 10/13/2018 at 10:45 Approved by: Filiberto Nino M.D. on 10/13/2018 at 10:46 CT angio: Radiologist's impression: PROCEDURE: CT ANGIO CHEST ABDOMEN PELVIS INDICATIONS: dissectioin persistant chest pain TECHNIQUE: Precontrast 5 mm thick sections acquired from the lung apices to the iliac crests. After the administration of intravenous contrast, 2.5 mm thick sections again acquired from the lung apices to the iliac crests. Maximum intensity projection (MIP) oblique sagittal and coronal reformats were then acquired. For radiation dose reduction, the following was used: automated exposure control. COMPARISON: [facility], CT, CT ANGIO CHEST PE PROTOCOL, 08/10/2017, 21:50. FINDINGS: Image quality: Excellent. AORTA: Moderate amount of atherosclerotic calcifications are noted throughout coronary arteries. Mild to moderate amount of atherosclerotic calcifications are noted in the ascending thoracic aorta and aortic arch. Mild amount of calcifications are noted in distal abdominal aorta and bilateral proximal common iliac arteries. There is no thoracic or abdominal aortic aneurysm. There is no aortic dissection. CHEST: Lungs and pleura: No acute airspace opacities. No pleural effusions or pneumothorax. Central and peripheral airways are patent and normal in caliber. Mediastinum: Heart size is enlarged. No pericardial effusion. No mediastinal or hilar adenopathy by size criteria. Central pulmonary arteries are normal in size. Esophagus is normal in caliber. There is a small hiatal hernias. Bones and chest wall: No axillary adenopathy by size criteria. Thyroid gland is within normal limits. No suspicious bony lesions. No vertebral body compression fractures. ABDOMEN: Vasculature: Celiac trunk and mesenteric arteries are patent. Renal arteries are also patent. Solid organs: Liver is normal in size and enhancement. There is hepatic steatosis. Gallbladder is within normal limits. Biliary system is non dilated. Pancreas enhances normally. Spleen is normal in size and enhancement. No adrenal nodules. Both kidneys are normal in size and enhancement, without hydronephrosis. Peritoneum and bowel: No free fluid or air. Bowel loops are normal in caliber and wall thickness. Nodes and vessels: No retroperitoneal or mesenteric adenopathy by size criteria. Inferior vena cava is normal in morphology. Miscellaneous: Small periumbilical hernia is seen containing fat only. PELVIS: Genitourinary: Bladder wall thickness is normal. Miscellaneous: There is a small left inguinal hernia containing fat only. No inguinal lymphadenopathy. Bones: No suspicious bony lesions. No vertebral body compression fractures. IMPRESSION: 1. No thoracic or abdominal aortic aneurysm. No aortic dissection. Prior cardiac surgery. Cardiomegaly. 2. No gross pulmonary emboli. Major branches of the abdominal aorta are patent. 3. Mild bibasilar dependent atelectasis. Bilateral lungs are otherwise clear. 4. No lymphadenopathy is seen in chest, abdomen or pelvis. 5. No acute inflammatory process within the abdomen or pelvis. No free fluid or free air. Dictated by: Filiberto Nino M.D. on 10/13/2018 at 16:55 ECG Data Attestation: I personally reviewed and interpreted this ECG as follows: Prior ECG tracings: available for review Interpretation: Normal sinus rhythm rate [address] elevation in lead 2 and AVF Q-waves are also noted inferiorly overall this appears unchanged from multiple previous EKGs EKG 2. Sinus rhythm rate [address] changes similar to previous EKGs MDM Narrative Medical decision making narrative: Patient continues to have fairly constant chest pain in the emergency department. It Is unrelieved by nitroglycerin morphine and Protonix. He appears comfortable even sleeping in the ER. He does not seem in any sort of severe distress. I do not suspect any sort of dissection, certainly no PE with elevated INR. Initially talked with hospitalist here at [facility] who suggested outpatient stress test. I did call and speak with Cardiology as well who also recommended outpatient stress testing. Constant chest pain for 2 days with negative troponins unlikely to be cardiac. INR noted to be elevated recommend he not take his Coumadin for a few days and have INR rechecked. Also unlikely to be PE due to significantly elevated INR. Patient is sitting waiting for his dad to pick him up. He appears comfortable at says that he still having pain. Will scan him for dissection CT negative for dissection. I discussed instructions with patient and his father including not taking Coumadin until his INR is rechecked. In he needs to be scheduled for an outpatient stress test. Discharge Plan Departure Patient Disposition: Home Clinical Impression: Atypical chest pain, Elevated INR Discharge Date/Time: 10/13/18 18:15 Interventions: ED Discharge Assessment Last Done: 10/13/18 18:15 Instructions: DI for Atypical Chest Pain Activity Restrictions/Additional Instructions: *You have been diagnosed with atypical chest, elevated INR *What to do: At this time as recommended that he have follow-up with her PCP and have stress testing of her heart. *Continue to take medications as directed DO NOT TAKE YOUR COUMADIN/WARFARIN FOR 3 DAYS. INR TODAY IS 5.7, this is too high. Get your INR be checked with her PCP Nitroglycerin under tongue if you should have worsening chest *Follow up with your primary care provider in 2-3 days *Return to ER if you should have worsening chest pain shortness of breath or any new, worsening or concerning symptoms Prescriptions: No Action lisinopril 10 mg tablet 10 mg PO DAILY RF: 0 tamsulosin 0.4 mg capsule 0.4 mg PO DAILY RF: 0 ziprasidone HCl 80 mg capsule 80 mg PO BEDTIME Qty: 90 RF: 3 divalproex [Depakote] 500 mg tablet,delayed release (DR/EC) See Rx Instructions PO QAM Qty: 480 RF: 3 benztropine 0.5 mg tablet 0.5 mg PO BID Qty: 180 RF: 3 fluoxetine 40 mg capsule 80 mg PO DAILY Qty: 180 RF: 3 tramadol 50 mg tablet 50 mg PO BID PRNRF: 0 gabapentin 300 mg capsule 600 mg PO BEDTIME Qty: 180 RF: 3 aspirin 81 mg Tablet,Delayed Release (Dr/Ec) 81 mg PO DAILY Qty: 0 RF: 0 metformin [Glucophage XR] 500 MG tablet extended release 24 hr 500 mg PO BIDCC Qty: 60 RF: 0 isosorbide mononitrate 30 mg tablet extended release 24 hr 60 mg PO QAM RF: 0 acetaminophen 325 mg capsule 325 mg PO DIRECTED RF: 0 nitroglycerin [Nitrostat] 0.4 mg Tablet, Sublingual 0.4 mg Sublingual Q5 MIN PRN PRN (Reason: Chest Pain) RF: 0 insulin glargine 100 unit/mL (3 mL) Insulin Pen 50 units Sub-Q DAILY RF: 0 atorvastatin 40 mg Tablet 40 mg PO BEDTIME RF: 0 levothyroxine [Synthroid] 75 mcg Tablet 75 mcg PO DAILY RF: 0 insulin aspart U-100 100 unit/mL Insulin Pen 30 - 35 units Sub-Q TIDWM RF: 0 furosemide 40 mg Tablet 40 mg PO DAILY RF: 0 sennosides [senna] 8.6 mg Tablet 8.6 mg PO DIRECTED RF: 0 warfarin 2 mg tablet 6 mg PO QPM RF: 0 warfarin 2 mg Tablet 2 mg PO DAILY RF: 0 hydrochlorothiazide 25 mg Tablet 25 mg PO DAILY RF: 0 cholecalciferol (vitamin D3) [Vitamin D3] 5,000 unit Tablet 5,000 unit PO DAILY RF: 0 metoprolol succinate [Toprol XL] 25 MG tablet extended release 24 hr 25 mg PO DAILY RF: 0 ResMed AirCurve 10 BIPAP Qty: 1 RF: 0 Referrals: Sandra Garland [Primary Care Provider] -
[2018-10-13] MEDS: NITROGLYCERIN 0.4 MG SL TAB SL ×3 (10:44→10:57)
--- NOTE | 2018-10-13 10:44 | ED_ITS ---
HPI - Chest Pain General Chief Complaint: Chest Pain Stated Complaint: chest pain,dry throat Time Seen by Provider: 10/13/18 10:34 Source: patient Mode of arrival: ambulatory Limitations: no limitations History of Present Illness HPI narrative: Patient is a 58-year-old male with history of 5 vessel CABG presenting with chest discomfort ongoing for 2 days. He says it will come from a sleep seems to be in the center of his chest nonradiating, nothing makes it better worse or nitroglycerin which he did not take. Constant in nature He states he has had a productive cough which is new. He denies shortness of sheila ath. He denies any fever or chills. MD complaint: chest pain Onset (ago): day(s) (2) Duration: constant Onset: during rest Pain location: substernal Severity: moderate Relieving factors: nothing Exacerbating factors: nothing Related Data Home Medications Medication Instructions Recorded Confirmed aspirin 81 mg PO DAILY #0 03/17/11 09/19/18 metformin [Glucophage XR] 500 mg PO BIDCC #60 tab 12/25/16 09/19/18 atorvastatin 40 mg PO BEDTIME 10/12/17 09/19/18 insulin aspart U-100 30 - 35 units SUB-Q TIDWM 10/12/17 09/19/18 insulin glargine 50 units SUB-Q DAILY 10/12/17 09/19/18 levothyroxine [Synthroid] 75 mcg PO DAILY 10/12/17 09/19/18 nitroglycerin [Nitrostat] 0.4 mg SUBLINGUAL Q5 MIN PRN PRN 10/12/17 09/19/18 lisinopril 10 mg tablet 10 mg PO DAILY 02/07/18 09/19/18 tamsulosin 0.4 mg capsule 0.4 mg PO DAILY 02/07/18 09/19/18 acetaminophen 325 mg capsule 325 mg PO DIRECTED 02/18/18 09/19/18 isosorbide mononitrate ER 30 mg 60 mg PO QAM tab 02/18/18 09/19/18 tablet,extended release 24 hr cholecalciferol (vitamin D3) 5,000 unit PO DAILY 05/26/18 09/19/18 [Vitamin D3] furosemide 40 mg PO DAILY 05/26/18 09/19/18 hydrochlorothiazide 25 mg PO DAILY 05/26/18 09/19/18 metoprolol succinate [Toprol XL] 25 mg PO DAILY 05/26/18 09/19/18 sennosides [senna] 8.6 mg PO DIRECTED 05/26/18 09/19/18 warfarin 2 mg PO DAILY 05/26/18 09/19/18 warfarin 6 mg PO QPM 05/26/18 09/19/18 ResMed AirCurve 10 BIPAP #1 ea 06/09/18 09/19/18 tramadol 50 mg tablet 50 mg PO BID PRN 09/19/18 09/19/18 Previous Rx's Medication Instructions Recorded benztropine 0.5 mg tablet 0.5 mg PO BID #180 tab 05/31/18 divalproex 500 mg tablet,delayed See Rx Instructions PO QAM #480 tab 05/31/18 release fluoxetine 40 mg capsule 80 mg PO DAILY #180 cap 05/31/18 ziprasidone 80 mg capsule 80 mg PO BEDTIME #90 cap 05/31/18 gabapentin 300 mg capsule 600 mg PO BEDTIME #180 cap 08/05/18 Allergies Allergy/AdvReac Type Severity Reaction Status Date / Time Penicillins [PENICILLINS] Allergy Severe Swelling Verified 10/13/18 10:29 of Lip/Tongue/Throat Review of Systems Review of Systems ROS Unobtainable: All systems reviewed & are unremarkable except as noted in HPI and below Constitutional Denies chills, Denies fever(s), Denies lethargy and Denies weakness Eyes Denies change in vision, Denies eye discharge, Denies irritation and Denies loss of vision Cardiovascular Reports as per HPI Respiratory Reports cough Gastrointestinal Gastrointestinal: Denies abdominal pain, Denies change in bowel habits, Denies diarrhea, Reports nausea and Denies vomiting Genitourinary Denies hematuria, Denies flank pain, Denies urinary incontinence and Denies urinary urgency Musculoskeletal Denies back pain, Denies muscle weakness, Denies numbness and Denies tingling Integumentary/Breasts Denies pruritus, Denies erythema, Denies rash and Denies wounds Neurologic Denies loss of vision, Denies numbness, Denies tingling and Denies weakness [facility] Medical History Obstructive sleep apnea of adult (Chronic) Chronic left shoulder pain (Acute) Pulmonary embolism (Acute) CAD (coronary artery disease) (Chronic) Diabetes type 2, controlled (Chronic) HTN (hypertension) (Chronic) Hyperlipidemia (Chronic) Schizoaffective disorder (Chronic) Surgical History Hx of CABG (Chronic) Family History Mother Coronary artery disease Father No problems noted. Social History marital status: unmarried,single details: lives with his parents household members: family lives independently: Yes caregiver/support person: Yes housing: house pets and animals: Yes Smoking Status: Former smoker alcohol intake: never substance use type: does not use Family History Mother Coronary artery disease Father No problems noted. Social History marital status: unmarried,single details: lives with his parents household members: family lives independently: Yes caregiver/support person: Yes housing: house pets and animals: Yes Smoking Status: Former smoker alcohol intake: never substance use type: does not use Exam Initial Vital Signs Initial Vital Signs: Vital Signs Pulse Rate 80 10/13/18 10:30 Respiratory Rate 16 10/13/18 10:30 Blood Pressure 171/110 H 10/13/18 10:30 Pulse Oximetry 100 10/13/18 10:30 GENERAL: Well-appearing, well-nourished and in no acute distress. HEENT: Head atraumatic,EOMI, pupils reactive CARDIOVASCULAR: Regular rate and rhythm without murmurs, rubs or gallops. Scar noted on chest RESPIRATORY: Breath sounds equal bilaterally, no wheezes rales or rhonchi. ABDOMEN: Soft, nontender. Normoactive bowel sounds all 4 quadrants. No guarding or rebound. EXTREMITIES: Normal range of motion, no clubbing or edema. Neurovascularly intact NEUROLOGICAL: Alert and oriented x4.Normal gait and speech. Cranial nerves II through XII grossly intact. SKIN: Warm, dry, no laceration, no petechiae, no rashes or lesions. Course Orders Ordered: Discontinued Medications Sodium Chloride (Normal Saline 0.9%) 1,000 mls @ 150 mls/hr IV CONT JOS EL Last Infusion: 10/13/18 17:20 Dose: 0 mls/hr Admin: 10/13/18 10:57 Dose: 150 mls/hr Morphine Sulfate (Morphine) 2 mg IV NOW ONE Stop: 10/13/18 12:46 Last Admin: 10/13/18 13:31 Dose: 2 mg Morphine Sulfate (Morphine) 2 mg IV NOW ONE Stop: 10/13/18 15:06 Last Admin: 10/13/18 15:15 Dose: 2 mg Nitroglycerin (Nitrostat) 0.4 mg SL [id number] PRN PRN Reason: Chest Pain Last Admin: 10/13/18 10:57 Dose: 0.4 mg Admin: 10/13/18 10:51 Dose: 0.4 mg Admin: 10/13/18 10:44 Dose: 0.4 mg Pantoprazole Sodium (Protonix) 40 mg IV NOW ONE Stop: 10/13/18 12:46 Last Admin: 10/13/18 13:31 Dose: 40 mg Consultations Consultation #1: Spoke with hospitalist at [facility] who updated patient's symptoms test results actually recommends outpatient follow-up. Time: 14:50 Consultation #2: [place] doctor crews, updated patient's symptoms. Unfortunately [facility] does not have any beds may transfer to [facility] or any other facility. Time: 15:25 Consultation #3: Cardiology Dr. Kelly, at [facility], recommends outpatient stress testing. Unlikely to be cardiac at this time. Time: 15:48 Vital Signs - 8 hr 10/13/18 10:30 10/13/18 10:44 10/13/18 10:49 Pulse Rate 80 68 87 Respiratory Rate 16 23 Blood Pressure 171/110 H 175/98 H Blood Pressure [Left Arm] 143/92 H Pulse Oximetry 100 97 10/13/18 10:51 10/13/18 10:52 10/13/18 10:57 Pulse Rate 86 83 86 Respiratory Rate 23 Blood Pressure 143/92 H 143/92 H 133/83 Blood Pressure [Left Arm] Pulse Oximetry 97 10/13/18 11:01 10/13/18 11:04 10/13/18 12:03 Pulse Rate 92 H 82 66 Respiratory Rate 26 H 24 Blood Pressure 128/77 Blood Pressure [Left Arm] 128/77 112/97 H Pulse Oximetry 97 100 10/13/18 12:30 10/13/18 13:27 10/13/18 13:30 Pulse Rate 68 64 65 Respiratory Rate 25 H 26 H 25 H Blood Pressure Blood Pressure [Left Arm] 149/92 H 157/90 H 155/90 H Pulse Oximetry 100 100 99 10/13/18 14:00 10/13/18 14:48 10/13/18 15:00 Pulse Rate 78 96 H 64 Respiratory Rate 16 29 H 29 H Blood Pressure Blood Pressure [Left Arm] 173/101 H 158/96 H 172/91 H Pulse Oximetry 100 100 100 10/13/18 15:52 10/13/18 16:31 Pulse Rate 72 70 Respiratory Rate 24 25 H Blood Pressure Blood Pressure [Left Arm] 161/92 H 150/89 H Pulse Oximetry 98 MDM - Chest Pain Lab Data Attestation: I reviewed the patient's lab results. Result diagrams: 10/13/18 10:35 10/13/18 10:35 Lab Results 10/13/18 10/13/18 10/13/18 Range/Units 10:35 10:35 10:35 WBC 5.1 (4.5-11.0) X10^3/uL RBC 5.33 (4.5-5.9) X10^6/uL Hgb 14.9 (13.5-17.5) g/dL Hct 45.4 (41-53) % MCV 85.2 (80-100) fL MCH 27.9 (26-34) PG MCHC 32.7 (30-36) % RDW 16.2 H (11.6-14.8) % Plt Count 173 (150-400) X10^3/uL Neut % (Auto) 47.4 L (50-75) % Lymph % (Auto) 44.9 H (25-40) % [place] % (Auto) 5.8 (3-14) % Eos % (Auto) 1.5 L (2-4) % Baso % (Auto) 0.4 (0-2) % Neut # (Auto) 2400 (5096-8680) /uL Lymph # (Auto) 2300 (4000-0305) /uL [place] # (Auto) 300 (0-900) /uL Eos # (Auto) 100 (0-450) /uL Baso # (Auto) 0 (0-100) /uL PT 68.6 H (10.1-12.7) SECONDS INR 5.7 H* (0.9-1.3) APTT 63 H D (26.4-36.2) SECONDS Sodium 141 (137-145) mmol/L Potassium 4.5 (3.4-5.1) mmol/L Chloride 104 (98-107) mmol/L Carbon Dioxide 26 (22-32) mmol/L BUN 12 (9-20) mg/dL Creatinine 1.00 (0.66-1.25) mg/dL Estimated GFR > 60.0 (>60) mL/min BUN/Creatinine Ratio 12.0 (6-22) Glucose 147 H (70-100) mg/dL Calcium 9.8 (8.4-10.2) mg/dL Total Bilirubin 0.6 (0.2-1.3) mg/dL AST 28 (17-59) IU/L ALT 25 (21-72) IU/L Alkaline Phosphatase 66 (38-126) U/L Total Creatine Kinase 154 (55-170) U/L CK-MB (CK-2) 1.41 (<2.37) ng/mL CK-MB (CK-2) Rel Index 0.9 L (1.5-5.0) % Troponin I < 0.012 (0.01-0.034) ng/mL B-Natriuretic Peptide < 100 (<100) Total Protein 7.9 (6.3-8.2) g/dL Albumin 4.4 (3.5-5.0) g/dL Globulin 3.5 (1.7-4.1) g/dL Albumin/Globulin Ratio 1.3 (1.0-2.8) Lipase 43 (23-300) U/L 10/13/18 Range/Units 13:43 WBC (4.5-11.0) X10^3/uL RBC (4.5-5.9) X10^6/uL Hgb (13.5-17.5) g/dL Hct (41-53) % MCV (80-100) fL MCH (26-34) PG MCHC (30-36) % RDW (11.6-14.8) % Plt Count (150-400) X10^3/uL Neut % (Auto) (50-75) % Lymph % (Auto) (25-40) % [place] % (Auto) (3-14) % Eos % (Auto) (2-4) % Baso % (Auto) (0-2) % Neut # (Auto) (2705-0289) /uL Lymph # (Auto) (7806-5536) /uL [place] # (Auto) (0-900) /uL Eos # (Auto) (0-450) /uL Baso # (Auto) (0-100) /uL PT (10.1-12.7) SECONDS INR (0.9-1.3) APTT (26.4-36.2) SECONDS Sodium (137-145) mmol/L Potassium (3.4-5.1) mmol/L Chloride (98-107) mmol/L Carbon Dioxide (22-32) mmol/L BUN (9-20) mg/dL Creatinine (0.66-1.25) mg/dL Estimated GFR (>60) mL/min BUN/Creatinine Ratio (6-22) Glucose (70-100) mg/dL Calcium (8.4-10.2) mg/dL Total Bilirubin (0.2-1.3) mg/dL AST (17-59) IU/L ALT (21-72) IU/L Alkaline Phosphatase (38-126) U/L Total Creatine Kinase (55-170) U/L CK-MB (CK-2) (<2.37) ng/mL CK-MB (CK-2) Rel Index (1.5-5.0) % Troponin I < 0.012 (0.01-0.034) ng/mL B-Natriuretic Peptide (<100) Total Protein (6.3-8.2) g/dL Albumin (3.5-5.0) g/dL Globulin (1.7-4.1) g/dL Albumin/Globulin Ratio (1.0-2.8) Lipase (23-300) U/L Imaging Data Chest x-ray: Radiologist's impression: PROCEDURE: XR CHEST 1V INDICATIONS: chest pain TECHNIQUE: One view of the chest was acquired. COMPARISON: None. FINDINGS: Surgical changes and devices: Median sternotomy wires are seen. Lungs and pleura: Lungs are clear. No pleural effusions or pneumothorax. Mediastinum: Mediastinal contours appear normal. Heart size is enlarged. Bones and chest wall: No suspicious bony lesions. Overlying soft tissues appear unremarkable. IMPRESSION: No acute cardiopulmonary pathology. Dictated by: Filiberto Nino M.D. on 10/13/2018 at 10:45 Approved by: Filiberto Nino M.D. on 10/13/2018 at 10:46 CT angio: Radiologist's impression: PROCEDURE: CT ANGIO CHEST ABDOMEN PELVIS INDICATIONS: dissectioin persistant chest pain TECHNIQUE: Precontrast 5 mm thick sections acquired from the lung apices to the iliac crests. After the administration of intravenous contrast, 2.5 mm thick sections again acquired from the lung apices to the iliac crests. Maximum intensity projection (MIP) oblique sagittal and coronal reformats were then acquired. For radiation dose reduction, the following was used: automated exposure control. COMPARISON: [facility], CT, CT ANGIO CHEST PE PROTOCOL, 08/10/2017, 21:50. FINDINGS: Image quality: Excellent. AORTA: Moderate amount of atherosclerotic calcifications are noted throughout coronary arteries. Mild to moderate amount of atherosclerotic calcifications are noted in the ascending thoracic aorta and aortic arch. Mild amount of calcifications are noted in distal abdominal aorta and bilateral proximal common iliac arteries. There is no thoracic or abdominal aortic aneurysm. There is no aortic dissection. CHEST: Lungs and pleura: No acute airspace opacities. No pleural effusions or pneumothorax. Central and peripheral airways are patent and normal in caliber. Mediastinum: Heart size is enlarged. No pericardial effusion. No mediastinal or hilar adenopathy by size criteria. Central pulmonary arteries are normal in size. Esophagus is normal in caliber. There is a small hiatal hernias. Bones and chest wall: No axillary adenopathy by size criteria. Thyroid gland is within normal limits. No suspicious bony lesions. No vertebral body compression fractures. ABDOMEN: Vasculature: Celiac trunk and mesenteric arteries are patent. Renal arteries are also patent. Solid organs: Liver is normal in size and enhancement. There is hepatic steatosis. Gallbladder is within normal limits. Biliary system is non dilated. Pancreas enhances normally. Spleen is normal in size and enhancement. No adrenal nodules. Both kidneys are normal in size and enhancement, without hydronephrosis. Peritoneum and bowel: No free fluid or air. Bowel loops are normal in caliber and wall thickness. Nodes and vessels: No retroperitoneal or mesenteric adenopathy by size criteria. Inferior vena cava is normal in morphology. Miscellaneous: Small periumbilical hernia is seen containing fat only. PELVIS: Genitourinary: Bladder wall thickness is normal. Miscellaneous: There is a small left inguinal hernia containing fat only. No ing uinal lymphadenopathy. Bones: No suspicious bony lesions. No vertebral body compression fractures. IMPRESSION: 1. No thoracic or abdominal aortic aneurysm. No aortic dissection. Prior cardiac surgery. Cardiomegaly. 2. No gross pulmonary emboli. Major branches of the abdominal aorta are patent. 3. Mild bibasilar dependent atelectasis. Bilateral lungs are otherwise clear. 4. No lymphadenopathy is seen in chest, abdomen or pelvis. 5. No acute inflammatory process within the abdomen or pelvis. No free fluid or free air. Dictated by: Filiberto Nino M.D. on 10/13/2018 at 16:55 ECG Data Attestation: I personally reviewed and interpreted this ECG as follows: Prior ECG tracings: available for review Interpretation: Normal sinus rhythm rate [address] elevation in lead 2 and AVF Q-waves are also noted inferiorly overall this appears unchanged from multip le previous EKGs EKG 2. Sinus rhythm rate [address] changes similar to previous EKGs MDM Narrative Medical decision making narrative: Patient continues to have fairly constant chest pain in the emergency department. It Is unrelieved by nitroglycerin morphine and Protonix. He appears comfortable even sleeping in the ER. He does not seem in any sort of severe distress. I do not suspect any sort of dissection, certainly no PE with elevated INR. Initially talked with hospitalist here at [facility] who suggested outpatient stress test. I did call and speak with Cardiology as well who also recommended outpatient stress testing. Constant chest pain for 2 days with negative troponins unlikely to be cardiac. INR noted to be elevated recommend he not take his Coumadin for a few days and have INR rechecked. Also unlikely to be PE due to significantly elevated INR. Patient is sitting waiting for his dad to pick him up. He appears comfortable at says that he still having pain. Will scan him for dissection CT negative for dissection. I discussed instructions with patient and his father including not taking Coumadin until his INR is rechecked. In he needs to be scheduled for an outpatient stress test. Discharge Plan Departure Patient Disposition: Home Clinical Impression: Atypical chest pain, Elevated INR Discharge Date/Time: 10/13/18 18:15 Interventions: ED Discharge Assessment Last Done: 10/13/18 18:15 Instructions: DI for Atypical Chest Pain Activity Restrictions/Additional Instructions: *You have been diagnosed with atypical chest, elevated INR *What to do: At this time as recommended that he have follow-up with her PCP and have stress testing of her heart. *Continue to take medications as directed DO NOT TAKE YOUR COUMADIN/WARFARIN FOR 3 DAYS. INR TODAY IS 5.7, this is too hi gh. Get your INR be checked with her PCP Nitroglycerin under tongue if you should have worsening chest *Follow up with your primary care provider in 2-3 days *Return to ER if you should have worsening chest pain shortness of breath or any new, worsening or concerning symptoms Prescriptions: No Action lisinopril 10 mg tablet 10 mg PO DAILY RF: 0 tamsulosin 0.4 mg capsule 0.4 mg PO DAILY RF: 0 ziprasidone HCl 80 mg capsule 80 mg PO BEDTIME Qty: 90 RF: 3 divalproex [Depakote] 500 mg tablet,delayed release (DR/EC) See Rx Instructions PO QAM Qty: 480 RF: 3 benztropine 0.5 mg tablet 0.5 mg PO BID Qty: 180 RF: 3 fluoxetine 40 mg capsule 80 mg PO DAILY Qty: 180 RF: 3 tramadol 50 mg tablet 50 mg PO BID PRNRF: 0 gabapentin 300 mg capsule 600 mg PO BEDTIME Qty: 180 RF: 3 aspirin 81 mg Tablet,Delayed Release (Dr/Ec) 81 mg PO DAILY Qty: 0 RF: 0 metformin [Glucophage XR] 500 MG tablet extended release 24 hr 500 mg PO BIDCC Qty: 60 RF: 0 isosorbide mononitrate 30 mg tablet extended release 24 hr 60 mg PO QAM RF: 0 acetaminophen 325 mg capsule 325 mg PO DIRECTED RF: 0 nitroglycerin [Nitrostat] 0.4 mg Tablet, Sublingual 0.4 mg Sublingual Q5 MIN PRN PRN (Reason: Chest Pain) RF: 0 insulin glargine 100 unit/mL (3 mL) Insulin Pen 50 units Sub-Q DAILY RF: 0 atorvastatin 40 mg Tablet 40 mg PO BEDTIME RF: 0 levothyroxine [Synthroid] 75 mcg Tablet 75 mcg PO DAILY RF: 0 insulin aspart U-100 100 unit/mL Insulin Pen 30 - 35 units Sub-Q TIDWM RF: 0 furosemide 40 mg Tablet 40 mg PO DAILY RF: 0 sennosides [senna] 8.6 mg Tablet 8.6 mg PO DIRECTED RF: 0 warfarin 2 mg tablet 6 mg PO QPM RF: 0 warfarin 2 mg Tablet 2 mg PO DAILY RF: 0 hydrochlorothiazide 25 mg Tablet 25 mg PO DAILY RF: 0 cholecalciferol (vitamin D3) [Vitamin D3] 5,000 unit Tablet 5,000 unit PO DAILY RF: 0 metoprolol succinate [Toprol XL] 25 MG tablet extended release 24 hr 25 mg PO DAILY RF: 0 ResMed AirCurve 10 BIPAP Qty: 1 RF: 0 Referrals: Sandra Garland [Primary Care Provider] -
[2018-10-13 10:45] LABS: Add Manual Diff / Slide Review NO; Basophils Absolute Auto 0 /uL (0-100); Basophils Percent Auto 0.4 % (0-2); Eosinophils Absolute Auto 100 /uL (0-450); Eosinophils Percent Auto 1.5 % (2-4); Hematocrit 45.4 % (41-53); Hemoglobin 14.9 g/dL (13.5-17.5); Lymphocytes Absolute Auto 2300 /uL (1100-4500); Lymphocytes Percent Auto 44.9 % (25-40); Mean Corpuscular HGB Conc 32.7 % (30-36); Mean Corpuscular Hemoglobin 27.9 PG (26-34); Mean Corpuscular Volume 85.2 fL (80-100); Monocytes Absolute Auto 300 /uL (0-900); Monocytes Percent Auto 5.8 % (3-14); Neutrophils Absolute Auto 2400 /uL (1500-7000); Neutrophils Percent Auto 47.4 % (50-75); Platelet Count 173 X10^3/uL (150-400); Red Blood Cell Count 5.33 X10^6/uL (4.5-5.9); Red Cell Distribution Width 16.2 % (11.6-14.8); White Blood Cell Count 5.1 X10^3/uL (4.5-11.0)
[2018-10-13 10:54] LABS: Alanine Aminotransferase 25 IU/L (21-72); Albumin 4.4 g/dL (3.5-5.0); Albumin Globulin Ratio 1.3 (1.0-2.8); Alkaline Phosphatase 66 U/L (38-126); Aspartate Aminotransferase 28 IU/L (17-59); Bilirubin Total 0.6 mg/dL (0.2-1.3); Blood Urea Nitrogen 12 mg/dL (9-20); Calcium 9.8 mg/dL (8.4-10.2); Carbon Dioxide 26 mmol/L (22-32); Chloride 104 mmol/L (98-107); Creatine Kinase 154 U/L (55-170); Estimated Glomerular Filt Rate > 60.0 mL/min (>60); Globulin 3.5 g/dL (1.7-4.1); Glucose 147 mg/dL (70-100); Lipase 43 U/L (23-300); Potassium 4.5 mmol/L (3.4-5.1); Sodium 141 mmol/L (137-145); Total Protein 7.9 g/dL (6.3-8.2)
[2018-10-13] MEDS: SODIUM CHLORIDE 0.9% 1,000 ML 150 ML IV (10:57)
[2018-10-13 10:58] LABS: Prothrombin Time 68.6 SECONDS (10.1-12.7)
[2018-10-13 11:04] LABS: PTT Partial Thromboplastin Tim 63 SECONDS (26.4-36.2)
[2018-10-13 11:05] LABS: B Type Natriuretic Peptide < 100 (<100); INR 5.7 (0.9-1.3)
[2018-10-13 11:07] LABS: HEMOLYSIS < 15 (0-50); Troponin I < 0.012 ng/mL (0.01-0.034)
[2018-10-13 11:10] LABS: CKMB % Relative Index 0.9 % (1.5-5.0); Creatine Kinase MB 1.41 ng/mL (<2.37)
[2018-10-13] MEDS: MORPHINE 2 MG/ML INJ IV ×2 (13:31→15:15)
[2018-10-13] MEDS: PANTOPRAZOLE 40 MG VIAL IV (13:31)
[2018-10-13 14:11] LABS: Troponin I < 0.012 ng/mL (0.01-0.034)
--- NOTE | 2018-10-13 15:06 | PC.NURSE ---
still unable to void. pt continue to have 3/10 chest discomfort, denies nausea at this time. skin warm dry pink
--- NOTE | 2018-10-13 17:45 | DI.CT.S_ITS ---
PROCEDURE: CT ANGIO CHEST ABDOMEN PELVIS INDICATIONS: dissectioin persistant chest pain TECHNIQUE: Precontrast 5 mm thick sections acquired from the lung apices to the iliac crests. After the administration of intravenous contrast, 2.5 mm thick sections again acquired from the lung apices to the iliac crests. Maximum intensity projection (MIP) oblique sagittal and coronal reformats were then acquired. For radiation dose reduction, the following was used: automated exposure control. COMPARISON: [facility], CT, CT ANGIO CHEST PE PROTOCOL, 08/10/2017, 21:50. FINDINGS: Image quality: Excellent. AORTA: Moderate amount of atherosclerotic calcifications are noted throughout coronary arteries. Mild to moderate amount of atherosclerotic calcifications are noted in the ascending thoracic aorta and aortic arch. Mild amount of calcifications are noted in distal abdominal aorta and bilateral proximal common iliac arteries. There is no thoracic or abdominal aortic aneurysm. There is no aortic dissection. CHEST: Lungs and pleura: No acute airspace opacities. No pleural effusions or pneumothorax. Central and peripheral airways are patent and normal in caliber. Mediastinum: Heart size is enlarged. No pericardial effusion. No mediastinal or hilar adenopathy by size criteria. Central pulmonary arteries are normal in size. Esophagus is normal in caliber. There is a small hiatal hernias. Bones and chest wall: No axillary adenopathy by size criteria. Thyroid gland is within normal limits. No suspicious bony lesions. No vertebral body compression fractures. ABDOMEN: Vasculature: Celiac trunk and mesenteric arteries are patent. Renal arteries are also patent. Solid organs: Liver is normal in size and enhancement. There is hepatic steatosis. Gallbladder is within normal limits. Biliary system is non dilated. Pancreas enhances normally. Spleen is normal in size and enhancement. No adrenal nodules. Both kidneys are normal in size and enhancement, without hydronephrosis. Peritoneum and bowel: No free fluid or air. Bowel loops are normal in caliber and wall thickness. Nodes and vessels: No retroperitoneal or mesenteric adenopathy by size criteria. Inferior vena cava is normal in morphology. Miscellaneous: Small periumbilical hernia is seen containing fat only. PELVIS: Genitourinary: Bladder wall thickness is normal. Miscellaneous: There is a small left inguinal hernia containing fat only. No inguinal lymphadenopathy. Bones: No suspicious bony lesions. No vertebral body compression fractures. IMPRESSION: 1. No thoracic or abdominal aortic aneurysm. No aortic dissection. Prior cardiac surgery. Cardiomegaly. 2. No gross pulmonary emboli. Major branches of the abdominal aorta are patent. 3. Mild bibasilar dependent atelectasis. Bilateral lungs are otherwise clear. 4. No lymphadenopathy is seen in chest, abdomen or pelvis. 5. No acute inflammatory process within the abdomen or pelvis. No free fluid or free air. Dictated by: Filiberto Nino M.D. on 10/13/2018 at 16:55 Approved by: Filiberto Nino M.D. on 10/13/2018 at 17:03
== END 2018-10-13 18:15 | disposition home or self-care (01) ==
PROVIDERS: Emergency Provider Emergency Medicine; PCP Family Medicine
DX: R07.89 Other chest pain (principal); R79.1 Abnormal coagulation profile; Z95.1 Presence of aortocoronary bypass graft
CPT/HCPCS: 36415; 36591; 71045; 71275; 74174; 80053; 82550; 82553; 83690; 83880; 84484; 85025; 85610; 85730; 93005; 93041; 96361; 96374; 96375; 96376; 99285; C9113; J2270; Q9967

== ENCOUNTER 2018-12-20 09:33 | Emergency (ER) | payer OTHER, SELFPAY ==
[2018-01-31 15:30] VITALS: BMI 47.2
[2018-12-20] VITALS (23 sets, daily range): BP systolic 132–183; BP diastolic 60–110; PULSE 63–76; RESP 14–24; TEMP 36.3–36.6; O2SAT 92–98; BMI 43.7
--- NOTE | 2018-12-20 10:00 | DI.RAD.S_ITS ---
PROCEDURE: XR CHEST 1V INDICATIONS: chest pain TECHNIQUE: One view of the chest was acquired. COMPARISON: [facility], CR, XR CHEST 1V, 10/13/2018, 11:27. FINDINGS: Surgical changes and devices: Median sternotomy. Lungs and pleura: Lungs are clear. No pleural effusions or pneumothorax. Mediastinum: Mediastinal contours appear normal. Heart size is enlarged. Bones and chest wall: No suspicious bony lesions. Overlying soft tissues appear unremarkable. IMPRESSION: No acute process. Cardiomegaly. Dictated by: Getachew Eddy M.D. on 12/20/2018 at 10:22 Approved by: Getachew Eddy M.D. on 12/20/2018 at 10:22
--- NOTE | 2018-12-20 10:03 | ED.CHESTPAIN ---
HPI - Chest Pain General Chief Complaint: Chest Pain Stated Complaint: Chest pain Time Seen by Provider: 12/20/18 09:54 Source: patient Mode of arrival: ambulatory Limitations: no limitations History of Present Illness HPI narrative: Patient is a 58-year-old male with history of 5 vessel CABG diabetes and schizophrenia presenting with chest discomfort and diaphoresis. He says he took 3 nitroglycerin at home which he said did not help. He feels extremely sweaty he has got some shortness of breath. He says it is in the center of his chest nonradiating fairly constant. complaint: chest pain Onset (ago): hour(s) Duration: constant Onset: during rest Pain location: substernal Severity: severe Quality: heaviness Pain radiation: none Relieving factors: nothing Related Data Home Medications Medication Instructions Recorded Confirmed metformin [Glucophage XR] 500 mg PO BIDCC #60 tab 12/25/16 12/20/18 atorvastatin 40 mg PO BEDTIME 10/12/17 12/20/18 insulin aspart U-100 1 - 5 units SUB-Q TIDWM 10/12/17 12/20/18 insulin glargine 50 units SUB-Q QPM 10/12/17 12/20/18 levothyroxine [Synthroid] 75 mcg PO DAILY 10/12/17 12/20/18 nitroglycerin [Nitrostat] 0.4 mg SUBLINGUAL Q5 MIN PRN PRN 10/12/17 12/20/18 lisinopril 10 mg tablet 10 mg PO DAILY 02/07/18 12/20/18 tamsulosin 0.4 mg capsule 0.4 mg PO QPM 02/07/18 12/20/18 isosorbide mononitrate 30 mg 60 mg PO QAM tab 02/18/18 12/20/18 tablet,extended release 24 hr cholecalciferol (vitamin D3) 5,000 unit PO DAILY 05/26/18 12/20/18 [Vitamin D3] furosemide 40 mg PO DAILY 05/26/18 12/20/18 hydrochlorothiazide 25 mg PO DAILY 05/26/18 12/20/18 metoprolol succinate [Toprol XL] 25 mg PO DAILY 05/26/18 12/20/18 sennosides [senna] 8.6 mg PO DIRECTED 05/26/18 12/20/18 ResMed AirCurve 10 BIPAP #1 ea 06/09/18 12/20/18 fenofibrate 160 mg tablet 160 mg PO DAILY 12/16/18 12/20/18 tramadol 50 mg tablet 50 mg PO BID PRN 12/16/18 12/20/18 acetaminophen 325 mg PO PRN PRN 12/20/18 12/20/18 aspirin 81 mg PO DAILY 12/20/18 12/20/18 benztropine 1 mg PO BID 12/20/18 12/20/18 divalproex [Depakote] 1,500 mg PO BEDTIME 12/20/18 12/20/18 divalproex [Depakote] 500 mg PO QAM 12/20/18 12/20/18 gabapentin 300 mg PO TID 12/20/18 12/20/18 melatonin 1 mg PO BEDTIME PRN 12/20/18 12/20/18 omeprazole 20 mg PO DAILY 12/20/18 12/20/18 Previous Rx's Medication Instructions Recorded fluoxetine 40 mg capsule 80 mg PO DAILY #180 cap 05/31/18 ziprasidone HCl 80 mg capsule 80 mg PO BEDTIME #90 cap 10/18/18 vitamin E 600 unit capsule 600 unit PO DAILY #90 cap 12/16/18 Allergies Allergy/AdvReac Type Severity Reaction Status Date / Time Penicillins [PENICILLINS] Allergy Severe Swelling Verified 12/20/18 09:59 of Lip/Tongue/Throat Review of Systems Review of Systems Narrative: GENERAL: Denies chills, fatigue, malaise, fever, sweats, travel HEENT: Denies sinus pain, ear pain, sore throat, difficulty swallowing, neck pain RESPIRATORY: Denies dyspnea, cough, wheezing, hemoptysis, sputum. CARDIOVASCULAR: See HPI GASTROINTESTINAL: Denies nausea, vomiting, abdominal pain, diarrhea, constipation, melena. : Denies dysuria, frequency, incontinence, hematuria, urinary retention, flank pain. MUSCULOSKELETAL: Denies weakness, joint pain, or bony pain SKIN: No rash, no erythema, no pruritus NEUROLOGIC: Denies weakness, dizziness, headache, numbness, change in speech, confusion PSYCHIATRIC: No concerning psychosocial issues. 12 point review of systems is negative except for those stated above and HPI PFSH Medical History CAD (coronary artery disease) (Chronic) Chronic left shoulder pain (Acute) Diabetes type 2, controlled (Chronic) HTN (hypertension) (Chronic) Hyperlipidemia (Chronic) Obstructive sleep apnea of adult (Chronic) Pulmonary embolism (Acute) Schizoaffective disorder (Chronic) Surgical History Hx of CABG (Chronic) Family History Mother Coronary artery disease Father No problems noted. Social History marital status: unmarried,single details: lives with his parents household members: family lives independently: Yes caregiver/support person: Yes housing: house pets and animals: Yes Smoking Status: Former smoker alcohol intake: never substance use type: does not use Family History Mother Coronary artery disease Father No problems noted. Social History marital status: unmarried,single details: lives with his parents household members: family lives independently: Yes caregiver/support person: Yes housing: house pets and animals: Yes Smoking Status: Former smoker alcohol intake: never substance use type: does not use Exam Initial Vital Signs Initial Vital Signs: Vital Signs Temperature 97.7 F 12/20/18 09:45 Pulse Rate 67 12/20/18 09:45 Respiratory Rate 24 12/20/18 09:45 Blood Pressure 157/85 H 12/20/18 09:45 Pulse Oximetry 98 12/20/18 09:45 GENERAL: Overweight male diaphoretic alert oriented x3 HEENT: Head atraumatic,EOMI, pupils reactive, face symmetric CARDIOVASCULAR: Regular rate and rhythm without murmurs, rubs or gallops. RESPIRATORY: Breath sounds equal bilaterally, no wheezes rales or rhonchi. ABDOMEN: Soft, nontender. Normoactive bowel sounds all 4 quadrants. No guarding or rebound. EXTREMITIES: Normal range of motion, no clubbing or edema. Neurovascularly intact NEUROLOGICAL: Alert and oriented x4.Normal gait and speech. Cranial nerves II through XII grossly intact. SKIN: Warm, dry, no laceration, no petechiae, no rashes or lesions. Course Orders Ordered: ED Orders 12/20/18 09:44 EKG-12 Lead Stat 12/20/18 09:55 B Type Natriuretic Peptide Stat Complete Blood Count AUTO DIFF Stat Comprehensive Metabolic Panel Stat Lipase Stat Partial Thromboplastin Time Stat Prothrombin Time INR Stat Troponin & CK Cardiac Panel Stat 12/20/18 10:00 XR chest 1V Stat 12/20/18 10:07 EKG-12 Lead Routine 12/20/18 10:54 CT angio chest abdomen pelvis Stat 12/20/18 12:45 Troponin I Stat Sodium Chloride (Normal Saline 0.9%) 1,000 mls @ 150 mls/hr IV CONT JOSE L Last Infusion: 12/20/18 17:16 Dose: 0 mls/hr Documented by: Admin: 12/20/18 10:12 Dose: 150 mls/hr Documented by: LUCRECIA Discontinued Medications Hydromorphone HCl (Dilaudid) 1 mg IV NOW ONE Stop: 12/20/18 10:45 Last Admin: 12/20/18 10:51 Dose: 1 mg Documented by: LUCRECIA Hydromorphone HCl (Dilaudid) 0.5 mg IV NOW ONE Stop: 12/20/18 12:17 Last Admin: 12/20/18 13:13 Dose: 0.5 mg Documented by: LUCRECIA Hydromorphone HCl (Dilaudid) 0.5 mg IV NOW ONE Stop: 12/20/18 15:43 Last Admin: 12/20/18 16:15 Dose: 0.5 mg Documented by: BROSENDana Nitroglycerin (Nitrostat) 0.4 mg SL [id number] PRN PRN Reason: Chest Pain Last Admin: 12/20/18 10:23 Dose: 0.4 mg Documented by: BROSENDana Admin: 12/20/18 10:18 Dose: 0.4 mg Documented by: BROSENDana Admin: 12/20/18 10:13 Dose: 0.4 mg Documented by: BROSENDana Nitroglycerin (Nitrostat) 0.4 mg SL NOW ONE Stop: 12/20/18 12:17 Last Admin: 12/20/18 13:14 Dose: 0.4 mg Documented by: LUCRECIA Pantoprazole Sodium (Protonix) 40 mg IV NOW ONE Stop: 12/20/18 15:43 Last Admin: 12/20/18 16:15 Dose: 40 mg Documented by: BROSENDana Vital Signs Vital signs: Vital Signs - 8 hr 12/20/18 09:45 12/20/18 10:13 12/20/18 10:16 Temperature 97.7 F Pulse Rate 67 69 Respiratory Rate 24 18 Blood Pressure 157/85 H 156/78 H Blood Pressure [Left Arm] 161/72 H Pulse Oximetry 98 93 12/20/18 10:18 12/20/18 10:21 12/20/18 10:23 Temperature Pulse Rate 69 73 Respiratory Rate 23 Blood Pressure 139/63 132/69 Blood Pressure [Left Arm] 132/69 Pulse Oximetry 93 12/20/18 11:00 12/20/18 11:18 12/20/18 11:20 Temperature Pulse Rate 63 65 65 Respiratory Rate 20 21 19 Blood Pressure Blood Pressure [Left Arm] 141/77 H 162/78 H 162/78 H Pulse Oximetry 94 92 93 12/20/18 11:30 12/20/18 12:00 12/20/18 12:30 Temperature Pulse Rate 66 64 67 Respiratory Rate 19 20 14 Blood Pressure Blood Pressure [Left Arm] 159/87 H 169/82 H 143/77 H Pulse Oximetry 94 93 94 12/20/18 13:10 12/20/18 13:40 12/20/18 14:00 Temperature Pulse Rate 65 76 68 Respiratory Rate 21 22 18 Blood Pressure Blood Pressure [Left Arm] 158/85 H 146/72 H 161/78 H Pulse Oximetry 96 98 92 12/20/18 14:04 12/20/18 14:30 12/20/18 15:05 Temperature 97.3 F L Pulse Rate 71 75 Respiratory Rate 20 14 Blood Pressure Blood Pressure [Left Arm] 168/110 H 183/60 H Pulse Oximetry 93 92 12/20/18 15:09 12/20/18 16:15 12/20/18 16:21 Temperature 97.9 F 97.3 F L Pulse Rate 75 Respiratory Rate 20 Blood Pressure Blood Pressure [Left Arm] 154/78 H Pulse Oximetry 95 12/20/18 17:12 Temperature Pulse Rate 74 Respiratory Rate 23 Blood Pressure Blood Pressure [Left Arm] 172/76 H Pulse Oximetry 92 MDM - Chest Pain Lab Data Attestation: I reviewed the patient's lab results. Result diagrams: 12/20/18 09:55 09/10/19 09:55 Labs: Lab Results 12/20/18 12/20/18 12/20/18 Range/Units 09:55 09:55 09:55 WBC 8.1 (4.5-11.0) X10^3/uL RBC 4.11 L (4.5-5.9) X10^6/uL Hgb 11.8 L (13.5-17.5) g/dL Hct 35.7 L (41-53) % MCV 86.8 (80-100) fL MCH 28.7 (26-34) PG MCHC 33.0 (30-36) % RDW 17.2 H (11.6-14.8) % Plt Count 177 (150-400) X10^3/uL Neut % (Auto) 76.0 H (50-75) % Lymph % (Auto) 15.9 L (25-40) % Dickinson % (Auto) 6.7 (3-14) % Eos % (Auto) 0.6 L (2-4) % Baso % (Auto) 0.8 (0-2) % Neut # (Auto) 6200 (8464-9220) /uL Lymph # (Auto) 1300 (8167-2950) /uL Dickinson # (Auto) 500 (0-900) /uL Eos # (Auto) 0 (0-450) /uL Baso # (Auto) 100 (0-100) /uL PT 26.2 H (10.1-12.7) SECONDS INR 2.2 H (0.9-1.3) APTT 42 H D (26.4-36.2) SECONDS Sodium (137-145) mmol/L Potassium (3.4-5.1) mmol/L Chloride (98-107) mmol/L Carbon Dioxide (22-32) mmol/L BUN (9-20) mg/dL Creatinine (0.66-1.25) mg/dL Estimated GFR (>60) mL/min BUN/Creatinine Ratio (6-22) Glucose (70-100) mg/dL Calcium (8.4-10.2) mg/dL Total Bilirubin (0.2-1.3) mg/dL AST (17-59) IU/L ALT (21-72) IU/L Alkaline Phosphatase (38-126) U/L Total Creatine Kinase (55-170) U/L CK-MB (CK-2) (<2.37) ng/mL CK-MB (CK-2) Rel Index (1.5-5.0) % Troponin I (0.01-0.034) ng/mL B-Natriuretic Peptide 498 H (<100) Total Protein (6.3-8.2) g/dL Albumin (3.5-5.0) g/dL Globulin (1.7-4.1) g/dL Albumin/Globulin Ratio (1.0-2.8) Lipase (23-300) U/L 12/20/18 12/20/18 Range/Units 09:55 12:45 WBC (4.5-11.0) X10^3/uL RBC (4.5-5.9) X10^6/uL Hgb (13.5-17.5) g/dL Hct (41-53) % MCV (80-100) fL MCH (26-34) PG MCHC (30-36) % RDW (11.6-14.8) % Plt Count (150-400) X10^3/uL Neut % (Auto) (50-75) % Lymph % (Auto) (25-40) % Dickinson % (Auto) (3-14) % Eos % (Auto) (2-4) % Baso % (Auto) (0-2) % Neut # (Auto) (0397-8358) /uL Lymph # (Auto) (8347-3649) /uL Dickinson # (Auto) (0-900) /uL Eos # (Auto) (0-450) /uL Baso # (Auto) (0-100) /uL PT (10.1-12.7) SECONDS INR (0.9-1.3) APTT (26.4-36.2) SECONDS Sodium 138 (137-145) mmol/L Potassium 4.0 (3.4-5.1) mmol/L Chloride 102 (98-107) mmol/L Carbon Dioxide 28 (22-32) mmol/L BUN 12 (9-20) mg/dL Creatinine 0.80 (0.66-1.25) mg/dL Estimated GFR > 60.0 (>60) mL/min BUN/Creatinine Ratio 15.0 (6-22) Glucose 154 H (70-100) mg/dL Calcium 9.0 (8.4-10.2) mg/dL Total Bilirubin 0.7 (0.2-1.3) mg/dL AST 21 (17-59) IU/L ALT 44 (21-72) IU/L Alkaline Phosphatase 62 (38-126) U/L Total Creatine Kinase 127 (55-170) U/L CK-MB (CK-2) 1.01 (<2.37) ng/mL CK-MB (CK-2) Rel Index 0.8 L (1.5-5.0) % Troponin I < 0.012 < 0.012 (0.01-0.034) ng/mL B-Natriuretic Peptide (<100) Total Protein 6.8 (6.3-8.2) g/dL Albumin 3.7 (3.5-5.0) g/dL Globulin 3.1 (1.7-4.1) g/dL Albumin/Globulin Ratio 1.2 (1.0-2.8) Lipase 27 (23-300) U/L Point of Care Testing Glucose POC 122 Urine Dip Bedside Urine Glucose Negative Bedside Urine Bilirubin - Negative Bedside Urine Ketone - Negative Urine Specific [place] 1.010 Bedside Urine Occult Blood - Negative Bedside Urine pH 8.0 Bedside Urine Protein +/- 15 Bedside Urine Urobilinogen +/- 1mg Bedside Urine Nitrite - Negative Bedside Urine Leukocytes - Negative Esterase Imaging Data Chest x-ray: Radiologist's impression: PROCEDURE: XR CHEST 1V INDICATIONS: chest pain TECHNIQUE: One view of the chest was acquired. COMPARISON: [facility], , XR CHEST 1V, 10/13/2018, 11:27. FINDINGS: Surgical changes and devices: Median sternotomy. Lungs and pleura: Lungs are clear. No pleural effusions or pneumothorax. Mediastinum: Mediastinal contours appear normal. Heart size is enlarged. Bones and chest wall: No suspicious bony lesions. Overlying soft tissues appear unremarkable. IMPRESSION: No acute process. Cardiomegaly. Dictated by: Getachew Eddy M.D. on 12/20/2018 at 10:22 CT angio: Radiologist's impression: PROCEDURE: CT ANGIO CHEST ABDOMEN PELVIS INDICATIONS: severe chest pain TECHNIQUE: Precontrast 5 mm thick sections acquired from the lung apices to the iliac crests. After the administration of intravenous contrast, 2.5 mm thick sections again acquired from the lung apices to the iliac crests. Maximum intensity projection (MIP) oblique sagittal and coronal reformats were then acquired. For radiation dose reduction, the following was used: automated exposure control. COMPARISON: [facility], CT, CT ANGIO CHEST PE, 03/20/2017, 14:21. [facility], CT, CT ANGIO CHEST PE PROTOCOL, 08/10/2017, 21:50. [facility], CT, CT ANGIO CHEST ABDOMEN PELVIS, 10/13/2018, 17:26. FINDINGS: Image quality: Excellent. AORTA: Normal caliber of the aorta. No evidence of aortic dissection or periaortic hemorrhage. CHEST: Lungs and pleura: No acute consolidation. Scattered subsegmental atelectasis and/or scarring. Small bilateral pleural effusion. No pneumothorax. 2 mm pulmonary nodule left upper lobe on image 102 series 10 is probably unchanged since 03/20/17. Mediastinum: Heart size is normal. Coronary artery calcifications are present. No pericardial effusion. No mediastinal or hilar adenopathy by size criteria. Central pulmonary arteries are normal in size. Esophagus is normal in caliber. No hiatal hernias. Bones and chest wall: No axillary adenopathy by size criteria. Thyroid gland unremarkable. No suspicious bony lesions. No vertebral body compression fractures. ABDOMEN: Vasculature: Celiac trunk and mesenteric arteries are patent. Renal arteries are also patent. Solid organs: Liver is normal in size and enhancement. Gallbladder negative. Biliary system is non dilated. Pancreas enhances normally. Spleen is normal in size and enhancement. No adrenal nodules. Both kidneys are normal in size and enhancement, without hydronephrosis. Peritoneum and bowel: No free fluid or air. Bowel loops are normal in caliber and wall thickness. Colonic diverticulosis. Normal appendix Nodes and vessels: No retroperitoneal or mesenteric adenopathy by size criteria. Inferior vena cava is normal in morphology. Miscellaneous: Tiny fat containing umbilical hernia PELVIS: Genitourinary: The bladder grossly unremarkable. Miscellaneous: Tiny bilateral fat containing inguinal hernias, left greater than right. Bones: Partial visualized cervical spondylosis. No compression fractures identified. IMPRESSION: No evidence of aortic aneurysm, dissection or rupture. Small bilateral pleural effusions and scattered atelectasis/scarring. Additional chronic and incidental findings as above. Dictated by: Ambrose Waterman M.D. on 12/20/2018 at 11:26 ECG Data Attestation: I personally reviewed and interpreted this ECG as follows: Prior ECG tracings: available for review Interpretation: EKG 1. Normal sinus rhythm pre 67 p.r. interval 156 Q-wave noted inferior leads unchanged from previous EKGs no ST elevations EKG 2. Sinus rhythm rate 64 p.r. interval 163 no changes from prior MDM Narrative Medical decision making narrative: The patient did not not have any relief with nitroglycerin. He did however have relief with Dilaudid. Concern for diaphoresis seems to be in significant pain for dissection. CT angio ordered. CT was negative for any kind of dissection. 12:13 p.m. I spoke with , cardiology at [facility]. The patient did not follow up after his last visit in October 2018. He has had no further testing. He apparently has had testing in the past and it was thought to be noncardiac in nature. Patient continues to have diaphoresis and off and on chest pain. He is given more nitroglycerin and Dilaudid. Patient is a [facility] patient, due to patient's continuing pain and diaphoresis and risk factors for cardiac issue patient will need to be admitted to hospital. At [facility] there is no cardiology back up due to his continuing pain and significant cor morbidities he will need to be transferred to higher level of care. [facility] states they do not have any beds at [place] and give permission to transfer anywhere else. [facility] does not have any cardiac beds hospitalist at [place] has been updated patient's symptoms test results accepts patient for transfer. Patient's glucose has been checked intermittently while he has been in the ER. And has remained normal. He has 2-troponins EKGs remain unchanged. Discharge Plan Departure Prescriptions: No Action lisinopril 10 mg tablet 10 mg PO DAILY RF: 0 tamsulosin 0.4 mg capsule 0.4 mg PO QPM RF: 0 fluoxetine 40 mg capsule 80 mg PO DAILY Qty: 180 RF: 3 fenofibrate 160 mg tablet 160 mg PO DAILY RF: 0 tramadol 50 mg tablet 50 mg PO BID PRN (Reason: pain) RF: 0 vitamin E 600 unit capsule 600 unit PO DAILY Qty: 90 RF: 3 metformin [Glucophage XR] 500 MG tablet extended release 24 hr 500 mg PO BIDCC Qty: 60 RF: 0 isosorbide mononitrate 30 mg tablet extended release 24 hr 60 mg PO QAM RF: 0 ziprasidone HCl 80 mg capsule 80 mg PO BEDTIME Qty: 90 RF: 3 nitroglycerin [Nitrostat] 0.4 mg Tablet, Sublingual 0.4 mg Sublingual Q5 MIN PRN PRN (Reason: Chest Pain) RF: 0 insulin glargine 100 unit/mL (3 mL) Insulin Pen 50 units Sub-Q QPM RF: 0 atorvastatin 40 mg Tablet 40 mg PO BEDTIME RF: 0 levothyroxine [Synthroid] 75 mcg Tablet 75 mcg PO DAILY RF: 0 insulin aspart U-100 100 unit/mL Insulin Pen 1 - 5 units Sub-Q TIDWM RF: 0 furosemide 40 mg Tablet 40 mg PO DAILY RF: 0 sennosides [senna] 8.6 mg Tablet 8.6 mg PO DIRECTED RF: 0 hydrochlorothiazide 25 mg Tablet 25 mg PO DAILY RF: 0 cholecalciferol (vitamin D3) [Vitamin D3] 5,000 unit Tablet 5,000 unit PO DAILY RF: 0 metoprolol succinate [Toprol XL] 25 MG tablet extended release 24 hr 25 mg PO DAILY RF: 0 divalproex [Depakote] 500 mg Tablet,Delayed Release (Dr/Ec) 1,500 mg PO BEDTIME RF: 0 benztropine 1 mg Tablet 1 mg PO BID RF: 0 acetaminophen 325 mg Tablet 325 mg PO PRN PRN (Reason: pain) RF: 0 aspirin 81 mg Tablet,Delayed Release (Dr/Ec) 81 mg PO DAILY RF: 0 omeprazole 20 mg Capsule,Delayed Release(Dr/Ec) 20 mg PO DAILY RF: 0 melatonin 1 mg Tablet 1 mg PO BEDTIME PRN (Reason: Sleep) RF: 0 divalproex [Depakote] 500 mg tablet,delayed release (DR/EC) 500 mg PO QAM RF: 0 gabapentin 300 mg capsule 300 mg PO TID RF: 0 (DME) ResMed AirCurve 10 BIPAP Qty: 1 RF: 0
[2018-12-20] MEDS: SODIUM CHLORIDE 0.9% 1,000 ML 150 ML IV (10:12)
[2018-12-20] MEDS: NITROGLYCERIN 0.4 MG SL TAB SL ×4 (10:13→13:14)
[2018-12-20 10:15] LABS: Add Manual Diff / Slide Review NO; Basophils Absolute Auto 100 /uL (0-100); Basophils Percent Auto 0.8 % (0-2); Eosinophils Absolute Auto 0 /uL (0-450); Eosinophils Percent Auto 0.6 % (2-4); Hematocrit 35.7 % (41-53); Hemoglobin 11.8 g/dL (13.5-17.5); Lymphocytes Absolute Auto 1300 /uL (1100-4500); Lymphocytes Percent Auto 15.9 % (25-40); Mean Corpuscular Hemoglobin 28.7 PG (26-34); Mean Corpuscular Volume 86.8 fL (80-100); Monocytes Absolute Auto 500 /uL (0-900); Monocytes Percent Auto 6.7 % (3-14); Neutrophils Absolute Auto 6200 /uL (1500-7000); Platelet Count 177 X10^3/uL (150-400); Red Blood Cell Count 4.11 X10^6/uL (4.5-5.9); Red Cell Distribution Width 17.2 % (11.6-14.8); White Blood Cell Count 8.1 X10^3/uL (4.5-11.0)
[2018-12-20 10:18] LABS: INR 2.2 (0.9-1.3); Prothrombin Time 26.2 SECONDS (10.1-12.7)
[2018-12-20 10:21] LABS: PTT Partial Thromboplastin Tim 42 SECONDS (26.4-36.2)
[2018-12-20 10:25] LABS: Alanine Aminotransferase 44 IU/L (21-72); Albumin 3.7 g/dL (3.5-5.0); Albumin Globulin Ratio 1.2 (1.0-2.8); Alkaline Phosphatase 62 U/L (38-126); Aspartate Aminotransferase 21 IU/L (17-59); Bilirubin Total 0.7 mg/dL (0.2-1.3); Blood Urea Nitrogen 12 mg/dL (9-20); Carbon Dioxide 28 mmol/L (22-32); Chloride 102 mmol/L (98-107); Creatine Kinase 127 U/L (55-170); Estimated Glomerular Filt Rate > 60.0 mL/min (>60); Globulin 3.1 g/dL (1.7-4.1); Glucose 154 mg/dL (70-100); HEMOLYSIS < 15 (0-50); Lipase 27 U/L (23-300); Sodium 138 mmol/L (137-145); Total Protein 6.8 g/dL (6.3-8.2)
[2018-12-20 10:32] LABS: B Type Natriuretic Peptide 498 (<100)
[2018-12-20 10:36] LABS: Troponin I < 0.012 ng/mL (0.01-0.034)
[2018-12-20 10:41] LABS: CKMB % Relative Index 0.8 % (1.5-5.0); Creatine Kinase MB 1.01 ng/mL (<2.37)
[2018-12-20] MEDS: HYDROMORPHONE 1 MG INJ IV ×2 (10:51→17:44)
--- NOTE | 2018-12-20 10:54 | DI.CT.S_ITS ---
PROCEDURE: CT ANGIO CHEST ABDOMEN PELVIS INDICATIONS: severe chest pain TECHNIQUE: Precontrast 5 mm thick sections acquired from the lung apices to the iliac crests. After the administration of intravenous contrast, 2.5 mm thick sections again acquired from the lung apices to the iliac crests. Maximum intensity projection (MIP) oblique sagittal and coronal reformats were then acquired. For radiation dose reduction, the following was used: automated exposure control. COMPARISON: [facility], CT, CT ANGIO CHEST PE, 03/20/2017, 14:21. [facility], CT, CT ANGIO CHEST PE PROTOCOL, 08/10/2017, 21:50. [facility], CT, CT ANGIO CHEST ABDOMEN PELVIS, 10/13/2018, 17:26. FINDINGS: Image quality: Excellent. AORTA: Normal caliber of the aorta. No evidence of aortic dissection or periaortic hemorrhage. CHEST: Lungs and pleura: No acute consolidation. Scattered subsegmental atelectasis and/or scarring. Small bilateral pleural effusion. No pneumothorax. 2 mm pulmonary nodule left upper lobe on image 102 series 10 is probably unchanged since 03/20/17. Mediastinum: Heart size is normal. Coronary artery calcifications are present. No pericardial effusion. No mediastinal or hilar adenopathy by size criteria. Central pulmonary arteries are normal in size. Esophagus is normal in caliber. No hiatal hernias. Bones and chest wall: No axillary adenopathy by size criteria. Thyroid gland unremarkable. No suspicious bony lesions. No vertebral body compression fractures. ABDOMEN: Vasculature: Celiac trunk and mesenteric arteries are patent. Renal arteries are also patent. Solid organs: Liver is normal in size and enhancement. Gallbladder negative. Biliary system is non dilated. Pancreas enhances normally. Spleen is normal in size and enhancement. No adrenal nodules. Both kidneys are normal in size and enhancement, without hydronephrosis. Peritoneum and bowel: No free fluid or air. Bowel loops are normal in caliber and wall thickness. Colonic diverticulosis. Normal appendix Nodes and vessels: No retroperitoneal or mesenteric adenopathy by size criteria. Inferior vena cava is normal in morphology. Miscellaneous: Tiny fat containing umbilical hernia PELVIS: Genitourinary: The bladder grossly unremarkable. Miscellaneous: Tiny bilateral fat containing inguinal hernias, left greater than right. Bones: Partial visualized cervical spondylosis. No compression fractures identified. IMPRESSION: No evidence of aortic aneurysm, dissection or rupture. Small bilateral pleural effusions and scattered atelectasis/scarring. Additional chronic and incidental findings as above. Dictated by: Ambrose Waterman M.D. on 12/20/2018 at 11:26 Approved by: Ambrose Waterman M.D. on 12/20/2018 at 11:34
[2018-12-20] MEDS: HYDROMORPHONE 0.5 MG INJ IV ×2 (13:13→16:15)
[2018-12-20 13:40] LABS: Troponin I < 0.012 ng/mL (0.01-0.034)
[2018-12-20] MEDS: PANTOPRAZOLE 40 MG VIAL IV (16:15)
--- NOTE | 2018-12-20 17:13 | PC.NURSE ---
got dressed and states, im going with my dad, to go to [facility], reassured, pt cooperative with care. back on stretcher, bed linen changed, informed still waiting for ambulance for transfer. pt continue to have forehead sweats, ice pack, back of neck provided. skin pink,moist,warm.
--- NOTE | 2018-12-20 17:45 | PC.NURSE ---
father of pt arrived picked up his set of keys.
== END 2018-12-20 17:48 | disposition short-term general hospital (02) ==
PROVIDERS: Emergency Provider Emergency Medicine; PCP Family Medicine
DX: R07.89 Other chest pain (principal)
CPT/HCPCS: 36415; 36591; 71045; 71275; 74174; 80053; 81003; 82550; 82553; 82962; 83690; 83880; 84484; 85025; 85610; 85730; 93005; 93010; 96361; 96374; 96375; 96376; 99285; C9113; J1170; Q9967

== ENCOUNTER 2019-02-13 21:22 | Emergency (ER) | payer OTHER, SELFPAY ==
[2018-01-31 15:30] VITALS: BMI 47.2
[2019-02-13 21:27] VITALS: BP 156/80; PULSE 73; RESP 24; TEMP 36.9; O2SAT 98
[2019-02-13 21:30] VITALS: BP 122/85; PULSE 69; RESP 20; O2SAT 98
--- NOTE | 2019-02-13 21:31 | DI.RAD.S_ITS ---
PROCEDURE: XR CHEST 1V INDICATIONS: SHORTNESS OF BREATH TECHNIQUE: One view of the chest was acquired. COMPARISON: [facility], CR, XR CHEST 1V, 12/20/2018, 10:04. FINDINGS: Surgical changes and devices: Median sternotomy wires. Lungs and pleura: Lungs are clear. No pleural effusions or pneumothorax. Mediastinum: Mediastinal contours appear normal. Heart is enlarged. Bones and chest wall: No suspicious bony lesions. Overlying soft tissues appear unremarkable. IMPRESSION: No acute cardiopulmonary disease process. Dictated by: Latosha Turner MD, PhD on 02/14/2019 at 8:19 Approved by: Latosha Turner MD, PhD on 02/14/2019 at 8:20
[2019-02-13 21:46] LABS: Add Manual Diff / Slide Review NO; Basophils Absolute Auto 100 /uL (0-100); Basophils Percent Auto 0.9 % (0-2); Eosinophils Absolute Auto 200 /uL (0-450); Eosinophils Percent Auto 2.5 % (2-4); Hematocrit 33.4 % (41-53); Hemoglobin 11.5 g/dL (13.5-17.5); Lymphocytes Absolute Auto 2400 /uL (1100-4500); Lymphocytes Percent Auto 38.1 % (25-40); Mean Corpuscular HGB Conc 34.4 % (30-36); Mean Corpuscular Hemoglobin 30.1 PG (26-34); Mean Corpuscular Volume 87.5 fL (80-100); Monocytes Absolute Auto 300 /uL (0-900); Monocytes Percent Auto 4.6 % (3-14); Neutrophils Absolute Auto 3400 /uL (1500-7000); Neutrophils Percent Auto 53.9 % (50-75); Platelet Count 141 X10^3/uL (150-400); Red Blood Cell Count 3.82 X10^6/uL (4.5-5.9); Red Cell Distribution Width 15.2 % (11.6-14.8); White Blood Cell Count 6.3 X10^3/uL (4.5-11.0)
--- NOTE | 2019-02-13 21:48 | ED_ITS ---
HPI - Chest Pain General Chief Complaint: Chest Pain Stated Complaint: BODY ACHES CHEST PAIN Time Seen by Provider: 02/13/19 21:38 Source: patient Mode of arrival: Wheelchair Limitations: no limitations History of Present Illness HPI narrative: Patient is a 58-year-old male with a known history coronary artery disease who arrives for multiple symptoms. He states that for the past 2 days he has left-sided chest pain and also left shoulder pain. It appears that the chest pain may be new however his shoulder pain is not new. He does thinks that it is worse than normal. He also has complaints of not being able to control his extremities and also grinding his teeth. Has not tried anything for symptoms prior to arrival. He is somewhat difficult to follow when he provides his history. He does not know the name of the medications that he is taking. He states that he no longer takes Coumadin the takes another blood thinner that he does not have to have blood test for any more. He has been on this for s everal weeks. I suspect that this is 1 of the new oral anticoagulants. He does not know the name of this medication. He also states that he had a increase in his Ziprasidone. He did not specifically name this medication by name but states that is the ?Z ?medication. He states that it was increased recently however he only increase the dose yesterday afternoon. He also states that he has been taking vitamin E prescribed by his psychologist but does not think it is doing anything for his movements. Related Data Home Medications Medication Instructions Recorded Confirmed metformin [Glucophage XR] 500 mg PO BIDCC #60 tab 12/25/16 01/30/19 atorvastatin 40 mg PO BEDTIME 10/12/17 01/30/19 insulin aspart U-100 1 - 5 units SUB-Q TIDWM 10/12/17 01/30/19 insulin glargine 50 units SUB-Q QPM 10/12/17 01/30/19 levothyroxine [Synthroid] 75 mcg PO DAILY 10/12/17 01/30/19 nitroglycerin [Nitrostat] 0.4 mg SUBLINGUAL Q5 MIN PRN PRN 10/12/17 01/30/19 lisinopril 10 mg tablet 10 mg PO DAILY 02/07/18 01/30/19 tamsulosin 0.4 mg capsule 0.4 mg PO QPM 02/07/18 01/30/19 isosorbide mononitrate 30 mg 60 mg PO QAM tab 02/18/18 01/30/19 tablet,extended release 24 hr cholecalciferol (vitamin D3) 5,000 unit PO DAILY 05/26/18 01/30/19 [Vitamin D3] furosemide 40 mg PO DAILY 05/26/18 01/30/19 hydrochlorothiazide 25 mg PO DAILY 05/26/18 01/30/19 metoprolol succinate [Toprol XL] 25 mg PO DAILY 05/26/18 01/30/19 sennosides [senna] 8.6 mg PO DIRECTED 05/26/18 01/30/19 ResMed AirCurve 10 BIPAP #1 ea 06/09/18 01/30/19 fenofibrate 160 mg tablet 160 mg PO DAILY 12/16/18 01/30/19 tramadol 50 mg tablet 50 mg PO BID PRN 12/16/18 01/30/19 benztropine 1 mg PO BID 12/20/18 01/30/19 divalproex [Depakote] 1,500 mg PO BEDTIME 12/20/18 01/30/19 divalproex [Depakote] 500 mg PO QAM 12/20/18 01/30/19 gabapentin 300 mg PO TID 12/20/18 01/30/19 omeprazole 20 mg PO DAILY 12/20/18 01/30/19 warfarin 5 mg PO DAILY 12/20/18 01/30/19 Previous Rx's Medication Instructions Recorded fluoxetine 40 mg capsule 80 mg PO DAILY #180 cap 05/31/18 ziprasidone HCl 80 mg capsule 80 mg PO BEDTIME #90 cap 10/18/18 vitamin E 600 unit capsule 600 unit PO DAILY #90 cap 12/16/18 ziprasidone HCl 80 mg capsule 80 mg PO QPM #30 cap 01/30/19 Allergies Allergy/AdvReac Type Severity Reaction Status Date / Time Penicillins [PENICILLINS] Allergy Severe Swelling Verified 01/30/19 15:32 of Lip/Tongue/Throat Review of Systems Constitutional Constitutional: Denies fever(s) and Denies headache(s) ENT Ears, Nose, Mouth, and Throat: Denies headache(s) Cardiovascular Cardiovascular: Reports chest pain, Denies edema, Denies irregular heart rhythm, Denies palpitations and Reports dyspnea Respiratory Respiratory: Reports dyspnea Gastrointestinal Gastrointestinal: Denies abdominal pain, Denies nausea and Denies vomiting Musculoskeletal Musculoskeletal: Reports arthralgias (Shoulder pain) and Reports tingling Integumentary/Breasts Skin/Breast: Denies lesions and Denies rash Neurologic Neurologic: Reports behavioral changes, Reports confusion, Denies headache(s), Reports memory loss, Reports tingling and Reports paresthesias Psychiatric Psychiatric: Reports behavioral changes, Reports confusion and Reports memory loss Comments: Moving of his arms and grinding his teeth Endocrine Endocrine: Denies palpitations Hematologic/Lymphatic Hematologic/Lymphatic: Denies easy bleeding and Denies easy bruising Patient History Medical History CAD (coronary artery disease) (Chronic) Chronic left shoulder pain (Acute) Diabetes type 2, controlled (Chronic) HTN (hypertension) (Chronic) Hyperlipidemia (Chronic) Obstructive sleep apnea of adult (Chronic) Pulmonary embolism (Acute) Schizoaffective disorder (Chronic) Social History marital status: unmarried,single details: lives with his parents household members: family lives independently: Yes caregiver/support person: Yes housing: house pets and animals: Yes Smoking Status: Former smoker alcohol intake: never substance use type: does not use alcohol intake frequency: 0-2 drinks per day Substance Use Type: does not use Exam Initial Vital Signs Initial Vital Signs: Vital Signs Temperature 98.5 F 02/13/19 21:27 Pulse Rate 73 02/13/19 21:27 Respiratory Rate 24 02/13/19 21:27 Blood Pressure 156/80 H 02/13/19 21:27 Pulse Oximetry 98 02/13/19 21:27 Const General: cooperative and No acute distress Orientation: alert, awake and oriented x3 HENMT Head: normal to inspection and normocephalic Resp Effort & Inspection: normal respiratory effort Auscultation: clear to auscultation bilaterally Cardio Rate: regular rate Rhythm: regular rhythm Pulses: radial pulses present GI Inspection: non-distended Palpation: soft and No firm Skin Lesions: no lesions Rashes: no rashes Neuro General: alert, awake and oriented x3 Cognition: normal cognition Extrem General: normal to inspection and capillary refill normal Psych Appearance: grossly normal Speech and Movement: restless and slurred speech Mood: anxious mood Affect: normal affect Attitude: cooperative Thought Process: normal Course Orders Ordered: ED Orders 02/13/19 21:25 CBC Auto Diff [Complete Blood Count AUTO DIFF] Stat Comprehensive Metabolic Panel Stat PT [Prothrombin Time INR] Stat Partial Thromboplastin Time Stat Troponin & CK Cardiac Panel Stat 02/13/19 21:29 EKG-12 Lead Routine 02/13/19 21:31 XR chest 1V Stat RT Consult Eval and Treat NOW 02/13/19 23:20 Troponin I Stat Discontinued Medications Diphenhydramine HCl (Benadryl) 25 mg IV NOW ONE Stop: 02/13/19 23:03 Last Admin: 02/13/19 23:08 Dose: 25 mg Documented by: STANLEY Diphenhydramine HCl (Benadryl) 25 mg IV NOW ONE Stop: 02/14/19 00:06 Last Admin: 02/14/19 00:14 Dose: 25 mg Documented by: MARK Lorazepam (Ativan) 1 mg PO NOW ONE Stop: 02/13/19 21:49 Last Admin: 02/13/19 22:03 Dose: 1 mg Documented by: SY Morphine Sulfate (Morphine) 4 mg IV NOW ONE Stop: 02/13/19 23:03 Last Admin: 02/13/19 23:08 Dose: 4 mg Documented by: STANLEY Morphine Sulfate (Morphine) 4 mg IV NOW ONE Stop: 02/14/19 00:06 Last Admin: 02/14/19 00:15 Dose: 4 mg Documented by: MARK Nitroglycerin (Nitro-Bid) 1 inch TOP NOW ONE Stop: 02/13/19 21:49 Last Admin: 02/13/19 22:03 Dose: 1 inch Documented by: SY Vital Signs Vital signs: Vital Signs - 8 hr 02/13/19 21:27 02/13/19 21:30 02/13/19 22:03 Temperature 98.5 F Pulse Rate 73 69 67 Respiratory Rate 24 20 Blood Pressure 156/80 H 164/60 H Blood Pressure [Right Arm] 122/85 Pulse Oximetry 98 98 02/13/19 22:33 02/13/19 23:32 02/14/19 00:02 Temperature Pulse Rate 67 66 69 Respiratory Rate 22 19 20 Blood Pressure Blood Pressure [Right Arm] 136/74 148/74 H 131/100 H Pulse Oximetry 96 95 99 11/05/19 02:06 02/14/19 02:13 Temperature Pulse Rate 64 65 Respiratory Rate 12 23 Blood Pressure Blood Pressure [Right Arm] 148/79 H 148/79 H Pulse Oximetry 98 97 MDM - Chest Pain Medical Records Data Attestation: I reviewed the patient's medical records. Lab Data Attestation: I reviewed the patient's lab results. Result diagrams: 02/13/19 21:25 02/13/19 21:25 Labs: Lab Results 02/13/19 02/13/19 02/13/19 Range/Units 21:25 21:25 21:25 WBC 6.3 (4.5-11.0) X10^3/uL RBC 3.82 L (4.5-5.9) X10^6/uL Hgb 11.5 L (13.5-17.5) g/dL Hct 33.4 L (41-53) % MCV 87.5 (80-100) fL MCH 30.1 (26-34) PG MCHC 34.4 (30-36) % RDW 15.2 H (11.6-14.8) % Plt Count 141 L (150-400) X10^3/uL Neut % (Auto) 53.9 (50-75) % Lymph % (Auto) 38.1 (25-40) % [place] % (Auto) 4.6 (3-14) % Eos % (Auto) 2.5 (2-4) % Baso % (Auto) 0.9 (0-2) % Neut # (Auto) 3400 (9298-9941) /uL Lymph # (Auto) 2400 (7214-2238) /uL [place] # (Auto) 300 (0-900) /uL Eos # (Auto) 200 (0-450) /uL Baso # (Auto) 100 (0-100) /uL PT 13.1 H (10.1-12.7) SECONDS INR 1.1 (0.9-1.3) APTT (26.4-36.2) SECONDS Sodium 138 (137-145) mmol/L Potassium 3.3 L (3.4-5.1) mmol/L Chloride 107 (98-107) mmol/L Carbon Dioxide 24 (22-32) mmol/L BUN 8 L (9-20) mg/dL Creatinine 0.90 (0.66-1.25) mg/dL Estimated GFR > 60.0 (>60) mL/min BUN/Creatinine Ratio 8.9 (6-22) Glucose 133 H (70-100) mg/dL Calcium 8.6 (8.4-10.2) mg/dL Total Bilirubin 0.2 (0.2-1.3) mg/dL AST 28 (17-59) IU/L ALT 18 (<50) IU/L Alkaline Phosphatase 62 (38-126) U/L Total Creatine Kinase 261 H (55-170) U/L CK-MB (CK-2) 1.60 (<2.37) ng/mL CK-MB (CK-2) Rel Index 0.6 L (1.5-5.0) % Troponin I < 0.012 (0.01-0.034) ng/mL Total Protein 6.3 (6.3-8.2) g/dL Albumin 3.4 L (3.5-5.0) g/dL Globulin 2.9 (1.7-4.1) g/dL Albumin/Globulin Ratio 1.2 (1.0-2.8) 02/13/19 02/13/19 Range/Units 21:25 23:20 WBC (4.5-11.0) X10^3/uL RBC (4.5-5.9) X10^6/uL Hgb (13.5-17.5) g/dL Hct (41-53) % MCV (80-100) fL MCH (26-34) PG MCHC (30-36) % RDW (11.6-14.8) % Plt Count (150-400) X10^3/uL Neut % (Auto) (50-75) % Lymph % (Auto) (25-40) % [place] % (Auto) (3-14) % Eos % (Auto) (2-4) % Baso % (Auto) (0-2) % Neut # (Auto) (9982-4583) /uL Lymph # (Auto) (0472-3447) /uL [place] # (Auto) (0-900) /uL Eos # (Auto) (0-450) /uL Baso # (Auto) (0-100) /uL PT (10.1-12.7) SECONDS INR (0.9-1.3) APTT 34 D (26.4-36.2) SECONDS Sodium (137-145) mmol/L Potassium (3.4-5.1) mmol/L Chloride (98-107) mmol/L Carbon Dioxide (22-32) mmol/L BUN (9-20) mg/dL Creatinine (0.66-1.25) mg/dL Estimated GFR (>60) mL/min BUN/Creatinine Ratio (6-22) Glucose (70-100) mg/dL Calcium (8.4-10.2) mg/dL Total Bilirubin (0.2-1.3) mg/dL AST (17-59) IU/L ALT (<50) IU/L Alkaline Phosphatase (38-126) U/L Total Creatine Kinase (55-170) U/L CK-MB (CK-2) (<2.37) ng/mL CK-MB (CK-2) Rel Index (1.5-5.0) % Troponin I < 0.012 (0.01-0.034) ng/mL Total Protein (6.3-8.2) g/dL Albumin (3.5-5.0) g/dL Globulin (1.7-4.1) g/dL Albumin/Globulin Ratio (1.0-2.8) Imaging Data Chest x-ray: Attestation: I personally reviewed and interpreted this imaging study as follows: My impression: No fractures, no dislocations, sternal wires in place, no pneumothorax, no pneumonia ECG Data Attestation: I personally reviewed and interpreted this ECG as follows: Prior ECG tracings: not available for review Interpretation: Sinus rhythm Ventricular rate is 73 Normal QRS Normal QTC Nonspecific ST T wave changes MDM Narrative Medical decision making narrative: Patient reports constant chest pain for the past 2 days with 2-troponins and nonspecific EKG findings. His left shoulder pain is not new. Patient does have lip-smacking and tongue rolling and other findings that are consistent with tardive dyskinesia. Review of his record does show that he was diagnosed with this at his last visit with his mental health provider. Review of that note states that they felt that stopping his medica tion outweighs the benefit of relieving his symptoms. They attempted to try vitamin-E however the patient states this has not seemed to help any of his symptoms. He did report some improvement with the Benadryl and the Ativan here in the ER. However was still having some of the lip smacking and hand movements mostly on the left. I do feel that much of the patient's symptoms are related to anxiety. Patient has several times for pain medication for his shoulder. He did at 1 point state that since I gave him pain medication he was going to have to talk with his bait painter. I did inform the patient that he needed to contact his mental health provider tomorrow to discuss further adjustments to his medications for his tardive dyskinesia. I do not feel that I should make any these changes here in the ER. Also information talk with his primary doctor about further workup of his chest pain. Patient did not have a ride home. He was discharged but was allowed to stay in the room until the taxis were running again in the morning. Patient has more pain medication howev er I informed him that I could not provide any more narcotic pain medication to him during this visit. He expressed understanding. Discharge Plan Departure Patient Disposition: Home Clinical Impression: Atypical chest pain, Tardive dyskinesia Instructions: Tardive Dyskinesia (Alternative Therapy), DI for Atypical Chest Pain, DI for Tardive Dyskinesia Activity Restrictions/Additional Instructions: I recommend that for now you take all of your medications as directed. Tomorrow please contact Dr. vinson office to discuss any potential changes tear medications. Also contact her primary provider for follow-up. Return to the emergency department for any new or worsening symptoms Prescriptions: No Action lisinopril 10 mg tablet 10 mg PO DAILY RF: 0 tamsulosin 0.4 mg capsule 0.4 mg PO QPM RF: 0 fluoxetine 40 mg capsule 80 mg PO DAILY Qty: 180 RF: 3 fenofibrate 160 mg tablet 160 mg PO DAILY RF: 0 tramadol 50 mg tablet 50 mg PO BID PRN (Reason: pain) RF: 0 vitamin E 600 unit capsule 600 unit PO DAILY Qty: 90 RF: 3 ziprasidone HCl 80 mg capsule 80 mg PO QPM Qty: 30 RF: 0 metformin [Glucophage XR] 500 MG tablet extended release 24 hr 500 mg PO BIDCC Qty: 60 RF: 0 isosorbide mononitrate 30 mg tablet extended release 24 hr 60 mg PO QAM RF: 0 ziprasidone HCl 80 mg capsule 80 mg PO BEDTIME Qty: 90 RF: 3 nitroglycerin [Nitrostat] 0.4 mg Tablet, Sublingual 0.4 mg Sublingual Q5 MIN PRN PRN (Reason: Chest Pain) RF: 0 insulin glargine 100 unit/mL (3 mL) Insulin Pen 50 units Sub-Q QPM RF: 0 atorvastatin 40 mg Tablet 40 mg PO BEDTIME RF: 0 levothyroxine [Synthroid] 75 mcg Tablet 75 mcg PO DAILY RF: 0 insulin aspart U-100 100 unit/mL Insulin Pen 1 - 5 units Sub-Q TIDWM RF: 0 furosemide 40 mg Tablet 40 mg PO DAILY RF: 0 sennosides [senna] 8.6 mg Tablet 8.6 mg PO DIRECTED RF: 0 hydrochlorothiazide 25 mg Tablet 25 mg PO DAILY RF: 0 cholecalciferol (vitamin D3) [Vitamin D3] 5,000 unit Tablet 5,000 unit PO DAILY RF: 0 metoprolol succinate [Toprol XL] 25 MG tablet extended release 24 hr 25 mg PO DAILY RF: 0 divalproex [Depakote] 500 mg Tablet,Delayed Release (Dr/Ec) 1,500 mg PO BEDTIME RF: 0 benztropine 1 mg Tablet 1 mg PO BID RF: 0 omeprazole 20 mg Capsule,Delayed Release(Dr/Ec) 20 mg PO DAILY RF: 0 divalproex [Depakote] 500 mg tablet,delayed release (DR/EC) 500 mg PO QAM RF: 0 gabapentin 300 mg capsule 300 mg PO TID RF: 0 warfarin 5 mg Tablet 5 mg PO DAILY RF: 0 (DME) ResMed AirCurve 10 BIPAP Qty: 1 RF: 0 Referrals: Sandra Garland [Primary Care Provider] -
[2019-02-13 21:52] LABS: INR 1.1 (0.9-1.3); Prothrombin Time 13.1 SECONDS (10.1-12.7)
[2019-02-13 21:56] LABS: Alanine Aminotransferase 18 IU/L (<50); Albumin 3.4 g/dL (3.5-5.0); Albumin Globulin Ratio 1.2 (1.0-2.8); Alkaline Phosphatase 62 U/L (38-126); Aspartate Aminotransferase 28 IU/L (17-59); BUN Creatinine Ratio 8.9 (6-22); Bilirubin Total 0.2 mg/dL (0.2-1.3); Blood Urea Nitrogen 8 mg/dL (9-20); Calcium 8.6 mg/dL (8.4-10.2); Carbon Dioxide 24 mmol/L (22-32); Chloride 107 mmol/L (98-107); Creatine Kinase 261 U/L (55-170); Estimated Glomerular Filt Rate > 60.0 mL/min (>60); Globulin 2.9 g/dL (1.7-4.1); Glucose 133 mg/dL (70-100); HEMOLYSIS < 15 (0-50); PTT Partial Thromboplastin Tim 34 SECONDS (26.4-36.2); Potassium 3.3 mmol/L (3.4-5.1); Sodium 138 mmol/L (137-145); Total Protein 6.3 g/dL (6.3-8.2)
[2019-02-13 22:03] VITALS: BP 164/60; PULSE 67
[2019-02-13] MEDS: NITROGLYCERIN OINT 1 INCH/GM OINT...G. TOP (22:03)
[2019-02-13] MEDS: LORazepam 0.5 MG TABLET 1 MG PO (22:03)
[2019-02-13 22:08] LABS: Troponin I < 0.012 ng/mL (0.01-0.034)
[2019-02-13 22:11] LABS: CKMB % Relative Index 0.6 % (1.5-5.0)
[2019-02-13 22:33] VITALS: BP 136/74; PULSE 67; RESP 22; O2SAT 96
[2019-02-13] MEDS: MORPHINE 4 MG/ML INJ IV (23:08)
[2019-02-13] MEDS: diphenhydrAMINE 50 MG/ML VIAL 25 MG IV (23:08)
[2019-02-13 23:32] VITALS: BP 148/74; PULSE 66; RESP 19; O2SAT 95
[2019-02-13 23:50] LABS: Troponin I < 0.012 ng/mL (0.01-0.034)
[2019-02-14 00:02] VITALS: BP 131/100; PULSE 69; RESP 20; O2SAT 99
[2019-02-14] MEDS: diphenhydrAMINE 50 MG/ML VIAL 25 MG IV (00:14)
[2019-02-14] MEDS: MORPHINE 4 MG/ML INJ IV (00:15)
[2019-02-14 02:06] VITALS: BP 148/79; PULSE 64; RESP 12; O2SAT 98
[2019-02-14 02:13] VITALS: BP 148/79; PULSE 65; RESP 23; O2SAT 97
--- NOTE | 2019-02-14 02:26 | PC.NURSE ---
Patient discharged from ED. Pt given Morphine in ED and will wait for taxi ride home in morning.
[2019-02-14 03:50] VITALS: BP 139/75; PULSE 80; RESP 18; O2SAT 99
--- NOTE | 2019-02-14 03:50 | PC.NURSE ---
patient waiting for Emilia Cooni. Sleeping in ER room 4 until 0500 when taxi can be called.
[2019-02-14 05:13] VITALS: BP 129/81; PULSE 80; RESP 18; O2SAT 99
== END 2019-02-14 05:15 | disposition home or self-care (01) ==
PROVIDERS: Emergency Provider Emergency Medicine; PCP Family Medicine
DX: R07.89 Other chest pain (principal); G24.01 Drug induced subacute dyskinesia; R79.89 Other specified abnormal findings of blood chemistry; R06.02 Shortness of breath; M25.512 Pain in left shoulder; Z79.01 Long term (current) use of anticoagulants
CPT/HCPCS: 36415; 71045; 80053; 82550; 82553; 84484; 85025; 85610; 85730; 93005; 93010; 96374; 96375; 96376; 99283; 99285; J1200; J2270

== ENCOUNTER 2019-02-16 11:06 | Observation (INO) | payer OTHER, SELFPAY ==
[2018-01-31 15:30] VITALS: BMI 47.2
[2019-02-16] VITALS (12 sets, daily range): BP systolic 153–174; BP diastolic 71–85; PULSE 56–66; RESP 11–21; TEMP 36.4–37.1; O2SAT 97–100; BMI 39.5
--- NOTE | 2019-02-16 11:14 | DI.RAD.S_ITS ---
PROCEDURE: XR CHEST 1V INDICATIONS: chest pain TECHNIQUE: One view of the chest was acquired. COMPARISON: [facility], CR, XR CHEST 1V, 02/13/2019, 21:57. FINDINGS: Surgical changes and devices: Median sternotomy changes are present. Lungs and pleura: Interstitial thickening is identified within the bilateral perihilar age and without focal consolidation. No effusion or pneumothorax is evident. Mediastinum: Mediastinal contours appear normal. Heart size is enlarged. Bones and chest wall: No suspicious bony lesions. Overlying soft tissues appear unremarkable. IMPRESSION: Cardiomegaly with associated mild vascular congestion. Please correlate clinically for possible pulmonary edema. Dictated by: Gold Carreon M.D. on 02/16/2019 at 10:36 Approved by: Gold Carreon M.D. on 02/16/2019 at 10:39
[2019-02-16] MEDS: SODIUM CHLORIDE 0.9% 1,000 ML 150 ML IV ×2 (11:23→18:27)
[2019-02-16] MEDS: ASPIRIN 81 MG CHEW TAB 324 MG PO (11:23)
[2019-02-16] MEDS: NITROGLYCERIN 0.4 MG SL TAB SL ×3 (11:26→11:37)
--- NOTE | 2019-02-16 11:27 | ED.CHESTPAIN ---
HPI - Chest Pain General Chief Complaint: Chest Pain Stated Complaint: chest pain,shoulder pain worse, stomach cramps Time Seen by Provider: 02/16/19 11:14 Source: patient Mode of arrival: Ambulatory Limitations: no limitations History of Present Illness HPI narrative: Patient is a 58-year-old male with history of coronary artery disease CABG 5 vessels and stents presenting with on going chest discomfort for the last 2 days. he actually was seen evaluated here on in 02/13/2019 for the same. He says this is comes and goes at rest. He has nitroglycerin at home which he did not take. Today it started while he was driving. He was coming to the hospital anyway to see a psychiatrist for a different reason and started having chest discomfort. It does radiate up into his neck. He is followed by Cardiology in [facility]. He also experiences shortness of breath with exertion. MD complaint: chest pain Duration: intermittent Onset: during rest Pain location: left chest Severity: moderate Quality: tightness and heaviness Pain radiation: neck Related Data Home Medications Medication Instructions Recorded Confirmed metformin [Glucophage XR] 500 mg PO BIDCC #60 tab 12/25/16 02/16/19 atorvastatin 40 mg PO BEDTIME 10/12/17 02/16/19 insulin aspart U-100 20 - 30 units SUB-Q TIDWM 10/12/17 02/16/19 insulin glargine 30 units SUB-Q BEDTIME 10/12/17 02/16/19 levothyroxine [Synthroid] 75 mcg PO DAILY 10/12/17 02/16/19 nitroglycerin [Nitrostat] 0.4 mg SUBLINGUAL Q5 MIN PRN PRN 10/12/17 02/16/19 lisinopril 10 mg tablet 10 mg PO DAILY 02/07/18 02/16/19 tamsulosin 0.4 mg capsule 0.4 mg PO QPM 02/07/18 02/16/19 cholecalciferol (vitamin D3) 5,000 unit PO DAILY 05/26/18 02/16/19 [Vitamin D3] furosemide 40 mg PO DAILY 05/26/18 02/16/19 hydrochlorothiazide 25 mg PO DAILY 05/26/18 02/16/19 metoprolol succinate [Toprol XL] 25 mg PO DAILY 05/26/18 02/16/19 sennosides [senna] 8.6 mg PO DIRECTED 05/26/18 02/16/19 ResMed AirCurve 10 BIPAP #1 ea 06/09/18 02/16/19 fenofibrate 160 mg tablet 160 mg PO DAILY 12/16/18 02/16/19 tramadol 50 mg tablet 50 mg PO BID PRN 12/16/18 02/16/19 benztropine 1 mg PO BID 12/20/18 02/16/19 divalproex [Depakote] 1,500 mg PO BEDTIME 12/20/18 02/16/19 divalproex [Depakote] 500 mg PO QAM 12/20/18 02/16/19 gabapentin 300 mg PO TID 12/20/18 02/16/19 omeprazole 20 mg PO DAILY 12/20/18 02/16/19 aspirin 81 mg PO DAILY 02/16/19 02/16/19 biotin 5,000 mcg SUBLINGUAL DAILY 02/16/19 02/16/19 isosorbide mononitrate 60 mg PO DAILY 02/16/19 02/16/19 rivaroxaban [Xarelto] 20 mg PO QPM 02/16/19 02/16/19 spironolactone 25 mg PO DAILY 02/16/19 02/16/19 Previous Rx's Medication Instructions Recorded fluoxetine 40 mg capsule 80 mg PO DAILY #180 cap 05/31/18 vitamin E 600 unit capsule 600 unit PO DAILY #90 cap 12/16/18 ziprasidone HCl 80 mg capsule 80 mg PO QPM #30 cap 01/30/19 Allergies Allergy/AdvReac Type Severity Reaction Status Date / Time Penicillins [PENICILLINS] Allergy Severe Swelling Verified 01/30/19 15:32 of Lip/Tongue/Throat Review of Systems Review of Systems ROS Unobtainable: All systems reviewed & are unremarkable except as noted in HPI and below Constitutional Constitutional: Denies chills, Denies fever(s), Denies lethargy and Denies weakness Eyes Eyes: Denies change in vision, Denies eye discharge, Denies irritation and Denies loss of vision ENT Ears, Nose, Mouth, and Throat: Denies change in voice, Denies neck pain and Denies sore throat Cardiovascular Cardiovascular: Reports as per HPI, Reports chest pain and Reports dyspnea on exertion Respiratory Respiratory: Reports dyspnea on exertion Gastrointestinal Gastrointestinal: Denies abdominal pain, Denies change in bowel habits, Denies diarrhea, Denies nausea and Denies vomiting Genitourinary Genitourinary: Denies hematuria, Denies flank pain, Denies urinary incontinence and Denies urinary urgency Musculoskeletal Musculoskeletal: Denies neck pain Integumentary/Breasts Skin/Breast: Denies pruritus, Denies erythema, Denies rash and Denies wounds Neurologic Neurologic: Denies loss of vision and Denies weakness Patient History Medical History CAD (coronary artery disease) (Chronic) Chronic left shoulder pain (Acute) Diabetes type 2, controlled (Chronic) HTN (hypertension) (Chronic) Hyperlipidemia (Chronic) Obstructive sleep apnea of adult (Chronic) Pulmonary embolism (Acute) Schizoaffective disorder (Chronic) Surgical History Hx of CABG (Chronic) Family History Mother Coronary artery disease Father No problems noted. Social History marital status: unmarried,single details: lives with his parents household members: family lives independently: Yes caregiver/support person: Yes housing: house pets and animals: Yes Smoking Status: Former smoker alcohol intake: never substance use type: does not use alcohol intake frequency: 0-2 drinks per day Substance Use Type: does not use Exam Initial Vital Signs Initial Vital Signs: Vital Signs Pulse Rate 65 02/16/19 11:15 Respiratory Rate 11 L 02/16/19 11:15 Blood Pressure 173/81 H 02/16/19 11:15 Pulse Oximetry 100 02/16/19 11:15 GENERAL: Well-appearing, well-nourished and in no acute distress. HEENT: Head atraumatic,EOMI, pupils reactive, face symmetric, moist mucous membranes CARDIOVASCULAR: Regular rate and rhythm without murmurs, rubs or gallops. RESPIRATORY: Breath sounds equal bilaterally, no wheezes rales or rhonchi. ABDOMEN: Soft, nontender. Normoactive bowel sounds all 4 quadrants. No guarding or rebound. EXTREMITIES: Normal range of motion, no clubbing or edema. Neurovascularly intact NEUROLOGICAL: Alert and oriented x4.Normal gait and speech. SKIN: Warm, dry, no laceration, no petechiae, no rashes or lesions. Course Orders Ordered: ED Orders 02/16/19 11:14 XR chest 1V Stat EKG-12 Lead Stat 02/16/19 11:28 B Type Natriuretic Peptide Stat Complete Blood Count AUTO DIFF Stat Comprehensive Metabolic Panel Stat Lipase Stat Partial Thromboplastin Time Stat Prothrombin Time INR Stat Troponin & CK Cardiac Panel Stat Sodium Chloride (Normal Saline 0.9%) 1,000 mls @ 150 mls/hr IV CONT JOSE L Last Infusion: 02/16/19 14:33 Dose: 150 mls/hr Documented by: Admin: 02/16/19 11:23 Dose: 150 mls/hr Documented by: JEANNIE Discontinued Medications Aspirin (Aspirin Chew) 324 mg PO NOW ONE Stop: 02/16/19 11:15 Last Admin: 02/16/19 11:23 Dose: 324 mg Documented by: JEANNIE Ketorolac Tromethamine (Toradol) 15 mg IV NOW ONE Stop: 02/16/19 13:37 Last Admin: 02/16/19 13:47 Dose: 15 mg Documented by: JEANNIE Morphine Sulfate (Morphine) 2 mg IV NOW ONE Stop: 02/16/19 12:01 Last Admin: 02/16/19 12:03 Dose: 2 mg Documented by: JEANNIE Nitroglycerin (Nitrostat) 0.4 mg SL [id number] PRN PRN Reason: Chest Pain Last Admin: 02/16/19 11:37 Dose: 0.4 mg Documented by: Admin: 02/16/19 11:31 Dose: 0.4 mg Documented by: Admin: 02/16/19 11:26 Dose: 0.4 mg Documented by: JEANNIE Consultations Consultation #1: Dr. Luke cardiology has been consulted in regard to patient. Previously patient has had what is thought to be noncardiac pain. However he has not followed up on a regular basis his last stress test was 2016. Time: 12:50 Consultation #2: Dr. Sharma, hospitalist updated on patient's symptoms and test results. Agrees with observation for stress test Vital Signs Vital signs: Vital Signs - 8 hr 02/16/19 11:15 02/16/19 11:26 02/16/19 11:31 Pulse Rate 65 66 65 Respiratory Rate 11 L Blood Pressure 173/81 H 173/81 H 153/71 H Blood Pressure [Right Arm] Pulse Oximetry 100 02/16/19 11:37 02/16/19 12:06 02/16/19 13:03 Pulse Rate 59 L 58 L 57 L Respiratory Rate 16 15 Blood Pressure 167/81 H Blood Pressure [Right Arm] 173/78 H 172/84 H Pulse Oximetry 97 98 MDM - Chest Pain Lab Data Attestation: I reviewed the patient's lab results. Result diagrams: 02/16/19 11:28 02/16/19 11:28 Labs: Lab Results 02/16/19 02/16/19 02/16/19 Range/Units 11:28 11:28 11:28 WBC 5.6 (4.5-11.0) X10^3/uL RBC 4.08 L (4.5-5.9) X10^6/uL Hgb 11.9 L (13.5-17.5) g/dL Hct 36.1 L (41-53) % MCV 88.5 (80-100) fL MCH 29.2 (26-34) PG MCHC 33.0 (30-36) % RDW 15.0 H (11.6-14.8) % Plt Count 149 L (150-400) X10^3/uL Neut % (Auto) 54.7 (50-75) % Lymph % (Auto) 34.4 (25-40) % Gem % (Auto) 6.9 (3-14) % Eos % (Auto) 3.7 (2-4) % Baso % (Auto) 0.3 (0-2) % Neut # (Auto) 3100 (3698-4866) /uL Lymph # (Auto) 1900 (3905-1366) /uL Gem # (Auto) 400 (0-900) /uL Eos # (Auto) 200 (0-450) /uL Baso # (Auto) 0 (0-100) /uL PT 11.3 (10.1-12.7) SECONDS INR 1.0 (0.9-1.3) APTT 34 (26.4-36.2) SECONDS Sodium 142 (137-145) mmol/L Potassium 4.1 (3.4-5.1) mmol/L Chloride 107 (98-107) mmol/L Carbon Dioxide 29 (22-32) mmol/L BUN 10 (9-20) mg/dL Creatinine 0.90 (0.66-1.25) mg/dL Estimated GFR > 60.0 (>60) mL/min BUN/Creatinine Ratio 11.1 (6-22) Glucose 79 (70-100) mg/dL Calcium 9.0 (8.4-10.2) mg/dL Total Bilirubin 0.3 (0.2-1.3) mg/dL AST 23 (17-59) IU/L ALT 18 (<50) IU/L Alkaline Phosphatase 61 (38-126) U/L Total Creatine Kinase 200 H (55-170) U/L CK-MB (CK-2) 1.06 (<2.37) ng/mL CK-MB (CK-2) Rel Index 0.5 L (1.5-5.0) % Troponin I < 0.012 (0.01-0.034) ng/mL B-Natriuretic Peptide 317 H (<100) Total Protein 6.8 (6.3-8.2) g/dL Albumin 4.0 (3.5-5.0) g/dL Globulin 2.8 (1.7-4.1) g/dL Albumin/Globulin Ratio 1.4 (1.0-2.8) Lipase 36 (23-300) U/L Imaging Data Chest x-ray: Radiologist's impression: PROCEDURE: XR CHEST 1V INDICATIONS: chest pain TECHNIQUE: One view of the chest was acquired. COMPARISON: [facility], , XR CHEST 1V, 02/13/2019, 21:57. FINDINGS: Surgical changes and devices: Median sternotomy changes are present. Lungs and pleura: Interstitial thickening is identified within the bilateral perihilar age and without focal consolidation. No effusion or pneumothorax is evident. Mediastinum: Mediastinal contours appear normal. Heart size is enlarged. Bones and chest wall: No suspicious bony lesions. Overlying soft tissues appear unremarkable. IMPRESSION: Cardiomegaly with associated mild vascular congestion. Please correlate clinically for possible pulmonary edema. Dictated by: Gold Carreon M.D. on 02/16/2019 at 10:36 ECG Data Attestation: I personally reviewed and interpreted this ECG as follows: Prior ECG tracings: available for review Interpretation: Normal sinus rhythm rate 61 Q-waves noted inferiorly unchanged which from prior no it ST elevations no T-wave inversion MDM Narrative Medical decision making narrative: The patient initially was given nitroglycerin morphine for pain. He appears comfortable says it still hurts. I did touch on his chest the pain is slightly reproducible. Is patient is extremely unreliable and does not follow up. Last stress test 2017 according to Cardiology. He has been here twice this week. He does need a repeat perfusion scan. He is more concerned because he is supposed to meet with Dr. Jovel in the morning 8:00 a.m.. Discharge Plan Departure Patient Disposition: Admitted as Observation Clinical Impression: Chest pain Qualifiers: Chest pain type: unspecified Qualified Code(s): R07.9 - Chest pain, unspecified Discharge Date/Time: 02/16/19 15:05 Admit Date/Time: 02/16/19 14:01 Admit Provider: Ric Sharma
[2019-02-16 11:36] LABS: Add Manual Diff / Slide Review NO; Basophils Absolute Auto 0 /uL (0-100); Basophils Percent Auto 0.3 % (0-2); Eosinophils Absolute Auto 200 /uL (0-450); Eosinophils Percent Auto 3.7 % (2-4); Hematocrit 36.1 % (41-53); Hemoglobin 11.9 g/dL (13.5-17.5); Lymphocytes Absolute Auto 1900 /uL (1100-4500); Lymphocytes Percent Auto 34.4 % (25-40); Mean Corpuscular Hemoglobin 29.2 PG (26-34); Mean Corpuscular Volume 88.5 fL (80-100); Monocytes Absolute Auto 400 /uL (0-900); Monocytes Percent Auto 6.9 % (3-14); Neutrophils Absolute Auto 3100 /uL (1500-7000); Neutrophils Percent Auto 54.7 % (50-75); Platelet Count 149 X10^3/uL (150-400); Red Blood Cell Count 4.08 X10^6/uL (4.5-5.9); White Blood Cell Count 5.6 X10^3/uL (4.5-11.0)
--- NOTE | 2019-02-16 11:36 | PC.NURSE ---
Pt arrived in triage with c/o 10/10 CP x 2 days, midsternal radiating to L shoulder, SOB with exertion. h/o CHF, DM, CABG x 5 in 2007. reports he takes a blood thinner but does not remember the name and was recently removed from Warfarin. AAOx3, placed on cardiac monitoring and EKG obtained. Skin PWD, Lungs clear, NSR 66. IV placed and labs drawn. ASA 324mg given and Nitro x 3 without relief. NS infusing at 150ml/hr. Resting in bed. awaiting further orders
[2019-02-16 11:43] LABS: Prothrombin Time 11.3 SECONDS (10.1-12.7)
[2019-02-16 11:45] LABS: PTT Partial Thromboplastin Tim 34 SECONDS (26.4-36.2)
[2019-02-16 11:49] LABS: Alanine Aminotransferase 18 IU/L (<50); Albumin Globulin Ratio 1.4 (1.0-2.8); Alkaline Phosphatase 61 U/L (38-126); Aspartate Aminotransferase 23 IU/L (17-59); BUN Creatinine Ratio 11.1 (6-22); Bilirubin Total 0.3 mg/dL (0.2-1.3); Blood Urea Nitrogen 10 mg/dL (9-20); Carbon Dioxide 29 mmol/L (22-32); Chloride 107 mmol/L (98-107); Creatine Kinase 200 U/L (55-170); Estimated Glomerular Filt Rate > 60.0 mL/min (>60); Globulin 2.8 g/dL (1.7-4.1); Glucose 79 mg/dL (70-100); HEMOLYSIS < 15 (0-50); Lipase 36 U/L (23-300); Potassium 4.1 mmol/L (3.4-5.1); Sodium 142 mmol/L (137-145); Total Protein 6.8 g/dL (6.3-8.2)
--- NOTE | 2019-02-16 11:52 | PC.NURSE ---
Pt reports psych h/o of hearing voices. Sees Dr Jovel as psychiatrist. Taking Gianni. Reports the voices were telling him i shouldnt even come here today, and that you guys were just going to send me away Denies SI/HI. Reports the voices are always telling me to hurt myself constantly but i dont want to. I have to stick around for my son.
[2019-02-16 11:55] LABS: B Type Natriuretic Peptide 317 (<100)
[2019-02-16 12:01] LABS: Troponin I < 0.012 ng/mL (0.01-0.034)
[2019-02-16] MEDS: MORPHINE 4 MG/ML INJ 2 MG IV (12:03)
[2019-02-16 12:04] LABS: CKMB % Relative Index 0.5 % (1.5-5.0); Creatine Kinase MB 1.06 ng/mL (<2.37)
--- NOTE | 2019-02-16 12:37 | PC.NURSE ---
Pt reports pain improvement to 7/10 from 10/10 after nitro x 3 and Morphine 2mg.
[2019-02-16] MEDS: KETOROLAC 60 MG/2 ML VIAL 15 MG IV (13:47)
--- NOTE | 2019-02-16 17:33 | PM.HP.1 ---
History of Present Illness History of Present Illness Date Patient Seen: 02/16/19 Time Patient Seen: 17:34 Chief complaint: chest pain,shoulder pain worse, stomach cramps Narrative: Mr. Pierre is a 58-year-old male with past medical history of schizoaffective disorder, CAD (CABG in 2007), hypertension, hyperlipidemia, sleep apnea on CPAP, obesity, mild tardive dyskinesia, hypothyroidism, and chronic pain who presented to the emergency room today with worsening chest pain. Patient states he has had chest pain for the past 3 days. Patient rates the pain as 8/10 described as someone sitting on his chest and radiates into his left neck. He has chronic chest pain, however this episode he thinks is worse and has lasted longer than previous episodes. The pain started after working outside with his father and has continued since. It does not seem to be exacerbated by movement and is constant. He has tried some [id number] pain medications without relief. He had 3 sublingual nitroglycerins today but this did not help the pain. He further endorses diaphoresis, nausea, and mild arm tingling however when asked in relation to musculoskeletal complaints he denied this. None of the symptoms are exertional. He went to the ED on 02/13 when it started, but was sent home and told to come back if his chest pain did worsen, and this is why he presented today. He was evaluated at [facility] in [facility] approximately 2 months ago for chest pain, it is unclear if a stress test was done there, but discharge paperwork references a low risk nuclear stress test which may refer to the previous one done approximately 1 year ago. In the emergency room, vital signs were notable for mild hypertension, but otherwise unremarkable. His laboratory evaluation was notable for a hemoglobin of 11.9, stable from prior examinations. His electrolytes are unremarkable. BNP is 317 and initial troponin negative. EKG was unchanged from prior exams. Chest x-ray was also unremarkable. Case was discussed in the ER with on-call Cardiology. Given his symptoms, these are unlikely cardiac but he recommended a stress test which will be done tomorrow. Patient was admitted under observation status. Patient History Medical History CAD (coronary artery disease) (Chronic) Chronic left shoulder pain (Acute) Diabetes type 2, controlled (Chronic) HTN (hypertension) (Chronic) Hyperlipidemia (Chronic) Obstructive sleep apnea of adult (Chronic) Pulmonary embolism (Acute) Schizoaffective disorder (Chronic) Surgical History Hx of CABG (Chronic) Family & Social History Family History Mother Coronary artery disease Father No problems noted. Social History: household members family Prior Living Arrangements House lives independently Yes caregiver/support person Yes Safety & Behavioral: Feels Safe in Current Yes Environment Been Physically Hurt or No Threatened By a Person Suicidal Ideation Description None Suicide Plan Description No Plan Tobacco & Substance use: Smoking Status Former smoker alcohol intake never alcohol intake frequency 0-2 drinks per day Substance Use Type does not use Meds Home Medications and Allergies Home Medications Medication Instructions Recorded Confirmed Type metformin [Glucophage XR] 500 mg PO BIDCC #60 tab 12/25/16 02/16/19 History atorvastatin 40 mg PO BEDTIME 10/12/17 02/16/19 History insulin aspart U-100 20 - 30 units SUB-Q TIDWM 10/12/17 02/16/19 History insulin glargine 30 units SUB-Q BEDTIME 10/12/17 02/16/19 History levothyroxine [Synthroid] 75 mcg PO DAILY 10/12/17 02/16/19 History nitroglycerin [Nitrostat] 0.4 mg SUBLINGUAL Q5 MIN PRN PRN 10/12/17 02/16/19 History lisinopril 10 mg tablet 10 mg PO DAILY 02/07/18 02/16/19 History tamsulosin 0.4 mg capsule 0.4 mg PO QPM 02/07/18 02/16/19 History cholecalciferol (vitamin D3) 5,000 unit PO DAILY 05/26/18 02/16/19 History [Vitamin D3] furosemide 40 mg PO DAILY 05/26/18 02/16/19 History hydrochlorothiazide 25 mg PO DAILY 05/26/18 02/16/19 History metoprolol succinate [Toprol XL] 25 mg PO DAILY 05/26/18 02/16/19 History sennosides [senna] 8.6 mg PO DIRECTED 05/26/18 02/16/19 History fluoxetine 40 mg capsule 80 mg PO DAILY #180 cap 05/31/18 02/16/19 Rx ResMed AirCurve 10 BIPAP #1 ea 06/09/18 02/16/19 History fenofibrate 160 mg tablet 160 mg PO DAILY 12/16/18 02/16/19 History tramadol 50 mg tablet 50 mg PO BID PRN 12/16/18 02/16/19 History vitamin E 600 unit capsule 600 unit PO DAILY #90 cap 12/16/18 02/16/19 Rx benztropine 1 mg PO BID 12/20/18 02/16/19 History divalproex [Depakote] 1,500 mg PO BEDTIME 12/20/18 02/16/19 History divalproex [Depakote] 500 mg PO QAM 12/20/18 02/16/19 History gabapentin 300 mg PO TID 12/20/18 02/16/19 History omeprazole 20 mg PO DAILY 12/20/18 02/16/19 History ziprasidone HCl 80 mg capsule 80 mg PO QPM #30 cap 01/30/19 02/16/19 Rx aspirin 81 mg PO DAILY 02/16/19 02/16/19 History biotin 5,000 mcg SUBLINGUAL DAILY 02/16/19 02/16/19 History isosorbide mononitrate 60 mg PO DAILY 02/16/19 02/16/19 History rivaroxaban [Xarelto] 20 mg PO QPM 02/16/19 02/16/19 History spironolactone 25 mg PO DAILY 02/16/19 02/16/19 History Allergies Allergy/AdvReac Type Severity Reaction Status Date / Time Penicillins [PENICILLINS] Allergy Severe Swelling Verified 01/30/19 15:32 of Lip/Tongue/Throat Review of Systems Review of Systems Narrative: All other systems reviewed with the patient and are negative unless otherwise stated. Exam Vital Signs (past 8 hours): - 02/16/19 11:15 02/16/19 11:26 02/16/19 11:31 Temperature Pulse Rate 65 66 65 Respiratory Rate 11 L Blood Pressure 173/81 H 173/81 H 153/71 H Blood Pressure [Right Arm] Pulse Oximetry 100 02/16/19 11:37 02/16/19 12:06 02/16/19 13:03 Temperature Pulse Rate 59 L 58 L 57 L Respiratory Rate 16 15 Blood Pressure 167/81 H Blood Pressure [Right Arm] 173/78 H 172/84 H Pulse Oximetry 97 98 02/16/19 14:05 02/16/19 14:32 02/16/19 15:00 Temperature 97.6 F 97.5 F L Pulse Rate 62 56 L 57 L Respiratory Rate 21 16 20 Blood Pressure 168/78 H 168/79 H Blood Pressure [Right Arm] 174/82 H Pulse Oximetry 99 100 97 Oxygen Delivery Method Room Air Oxygen Flow Rate 0 Narrative Exam Narrative: GENERAL APPEARANCE: Obese male Well developed, well nourished, in no acute distress. SKIN: Inspection of the skin reveals no rashes, ulcerations or petechiae. HEENT: The sclerae were anicteric and conjunctivae were pink and moist. Extraocular movements were intact and pupils were equal, round with normal accommodation. External inspection of the ears and nose showed no scars, lesions, or masses. Lips, teeth, and gums showed normal mucosa. The oral mucosa, hard and soft palate, tongue and posterior pharynx were unremarkable. NECK: Supple and symmetric. There was no thyroid enlargement, and no tenderness, or masses were felt. CHEST: Normal AP diameter and normal contour without any kyphoscoliosis. There is chest wall tenderness. LUNGS: Auscultation of the lungs revealed no wheezes, rhonchi, or rales. CARDIOVASCULAR: There was a regular rate and rhythm without any murmurs, gallops, rubs. Peripheral pulses were 2+ and symmetric. ABDOMEN: Soft and nontender with normal bowel sounds. No ascites was noted. MUSCULOSKELETAL: There was left paraspinal tenderness in the cervical region. Muscle strength and tone were normal. EXTREMITIES: No cyanosis, clubbing or edema. NEUROLOGIC: Alert and oriented x 3. Normal affect. Gait was normal. Strength is +5/5 in the Upper Extremities and Lower Extremities Bilaterally. Sensation to touch was normal. Objective ECG Impression: EKG is normal sinus rhythm, no ST or T changes suggestive of ischemia. Similar to previous exam. Labs Result Diagrams: 02/16/19 11:28 02/16/19 11:28 Labs: Laboratory Results - last 24 hr 02/16/19 02/16/19 02/16/19 11:28 11:28 11:28 WBC 5.6 RBC 4.08 L Hgb 11.9 L Hct 36.1 L MCV 88.5 MCH 29.2 MCHC 33.0 RDW 15.0 H Plt Count 149 L Neut % (Auto) 54.7 Lymph % (Auto) 34.4 Sutter % (Auto) 6.9 Eos % (Auto) 3.7 Baso % (Auto) 0.3 Neut # (Auto) 3100 Lymph # (Auto) 1900 Sutter # (Auto) 400 Eos # (Auto) 200 Baso # (Auto) 0 PT 11.3 INR 1.0 APTT 34 Sodium 142 Potassium 4.1 Chloride 107 Carbon Dioxide 29 BUN 10 Creatinine 0.90 Estimated GFR > 60.0 BUN/Creatinine Ratio 11.1 Glucose 79 Calcium 9.0 Total Bilirubin 0.3 AST 23 ALT 18 Alkaline Phosphatase 61 Total Creatine Kinase 200 H CK-MB (CK-2) 1.06 CK-MB (CK-2) Rel Index 0.5 L Troponin I < 0.012 B-Natriuretic Peptide 317 H Total Protein 6.8 Albumin 4.0 Globulin 2.8 Albumin/Globulin Ratio 1.4 Lipase 36 Assessment & Plan Assessment & Plan narrative: Mr. Pierre is a 58-year-old male with past medical history of schizoaffective disorder, CAD (CABG in 2007), hypertension, hyperlipidemia, sleep apnea on CPAP, obesity, mild tardive dyskinesia, hypothyroidism, PE with hypercoagulable state on Xarelto, and chronic pain who presented to the emergency room today with worsening chest pain. His initial troponins are negative and EKG is reassuring. Given his history and that the patient does not reliably follow up in Cardiology Clinic, Cardiology recommended that he have another stress test in the morning. He is admitted under observation status. 1. Chest pain, acute on chronic, present on admission -patient has known CAD and stable angina which he is taking Imdur for, however patient states this is worse. Given tenderness on exam I do suspect a musculoskeletal cause however is history is quite significant. Cardiology at [facility] did recommend a stress test which can be done tomorrow. -stress test in a.m. -risk stratify with TSH, A1c, and lipid panel -no need for repeat echo as BNP is actually lower than previous visits and patient with no dyspnea on exertion or orthopnea -trial of a muscle relaxant for possible musculoskeletal pain today -NPO at midnight, hold beta-ida 2. CAD, chronic, present on admission -continue aspirin, imdur 3. Hypertension, chronic, present on admission -continue home medications while holding beta-ida prior to stress test. 4. Hyperlipidemia, chronic -continue Lipitor 40, fenofibrate 160 5. Schizoaffective disorder -continue home medications 6. Diabetes, type 2, on long-term insulin use -continue home regimen while inpatient -aspart 20/25/30 -glargine 30 -hold home metformin 7. History of PE, on anticoagulation -continue home Xarelto Code: Full, surrogate decision maker he states is his father. DVT: On xarelto Dispo: admit under observation status. Quality VTE Deep Vein Thrombosis/Pulmonary Embolism Present on Admission: No
[2019-02-16] MEDS: CYCLOBENZAPRINE 10 MG TABLET PO (18:12)
[2019-02-16 18:36] LABS: Troponin I < 0.012 ng/mL (0.01-0.034)
--- NOTE | 2019-02-16 20:26 | PC.NURSE ---
Patient is A&O x4, pleasant an cooperative w/ staff and is able to make needs known. Patient reported to admitting nurse and shift nurse that he has voices in his head telling him to kill or harm himself. Patient denies the want to harm himself, states he can control his thoughts so that he doesn't act upon them. Reports last attempt of suicide was in 2009. Patient refuses to have a 1:1 with him. Will cont. to monitor closely. Discussion with charge nurse on further monitoring of patient and if 1:1 is available and nec.
[2019-02-16] MEDS: BENZTROPINE 1 MG TABLET PO (20:37)
[2019-02-16] MEDS: ATORVASTATIN 20 MG TABLET 40 MG PO (20:37)
[2019-02-16] MEDS: GABAPENTIN 300 MG CAPSULE PO (20:38)
[2019-02-16] MEDS: DIVALPROEX DR 250 MG TABLET 1500 MG PO (20:38)
[2019-02-17] MEDS: TRAMADOL 50 MG TABLET PO (00:06)
[2019-02-17] MEDS: SODIUM CHLORIDE 0.9% 1,000 ML 150 ML IV ×2 (01:44→08:20)
[2019-02-17 06:07] LABS: Hemoglobin A1C% w Est Avg Glu 6.5 % (4.0-6.0)
[2019-02-17 06:22] LABS: BUN Creatinine Ratio 13.8 (6-22); Blood Urea Nitrogen 11 mg/dL (9-20); Calcium 8.1 mg/dL (8.4-10.2); Carbon Dioxide 27 mmol/L (22-32); Chloride 106 mmol/L (98-107); Cholesterol 125 mg/dL (140-199); Estimated Glomerular Filt Rate > 60.0 mL/min (>60); Glucose 104 mg/dL (70-100); HDL Cholesterol 26 mg/dL (40-60); HEMOLYSIS < 15 (0-50); LDL Cholesterol Calculated 82 mg/dL (<100); Magnesium 1.9 mg/dL (1.6-2.3); Sodium 137 mmol/L (137-145); Triglycerides 86 mg/dL (35-150)
[2019-02-17] MEDS: LEVOTHYROXINE 75 MCG TABLET PO (06:26)
[2019-02-17 06:52] LABS: TSH w/ Reflex to FT4 2.94 uIU/mL (0.47-4.68)
[2019-02-17 08:00] VITALS: BP 153/84; PULSE 62; RESP 20; TEMP 36.4; O2SAT 98
[2019-02-17] MEDS: CYCLOBENZAPRINE 10 MG TABLET PO (10:25)
--- NOTE | 2019-02-17 12:44 | P.PCN_ITS ---
Cardiac Stress Test Report Referral & Results Date Patient Seen: 02/17/19 Time Patient Seen: 12:00 Requesting provider: Ric Sharma Indication: Chest pain Rest ECG: NSR Procedure Note: After both written and verbal informed consent the patient had an IV started by the diagnostic imaging RN and then was hooked up to the treadmill monitoring system. The patient was placed on the treadmill at 1 mile an hour with no elevation and was then injected with the Jacqui scan material. The Cardiolite was then immediately administered. The patient spent an additional 2-3 minutes on the treadmill before being returned to the [facility] in the supine position. The patient had a normal response to all infused materials. No signs or symptoms of angina. He had neck, shoulder, chest pain prior to beginning the test. No change in rhythm. Impression: Successful Jacqui protocol. Will await perfusion imaging. Please note: Actual ECG tracings can be found in the PACS system.
[2019-02-17 13:00] VITALS: BP 151/58; PULSE 60; RESP 18; TEMP 36.3; O2SAT 95
[2019-02-17] MEDS: BENZTROPINE 1 MG TABLET PO (13:39)
[2019-02-17] MEDS: ASPIRIN EC 81 MG TABLET PO (13:39)
[2019-02-17] MEDS: LISINOPRIL 10 MG TABLET PO (13:39)
[2019-02-17] MEDS: SPIRONOLACTONE 25 MG TABLET PO (13:39)
[2019-02-17] MEDS: DIVALPROEX DR 250 MG TABLET 500 MG PO (13:40)
[2019-02-17] MEDS: hydroCHLOROthiazide 25 MG TABLET PO (13:40)
[2019-02-17] MEDS: FENOFIBRATE 160 MG TABLET PO (13:40)
[2019-02-17] MEDS: FLUoxetine 20 MG CAPSULE 80 MG PO (13:41)
[2019-02-17] MEDS: GABAPENTIN 300 MG CAPSULE PO (13:41)
[2019-02-17] MEDS: PANTOPRAZOLE 20 MG TABLET PO (13:41)
--- NOTE | 2019-02-17 14:22 | PC.NURSE ---
Pt back from his myocardial perfusion test. He is on a low salt ada diet, and tolerated egg salad sandwich.. Patient is going to be discharged to home later this afternoon.
--- NOTE | 2019-02-17 14:30 | CM.DPNOTE ---
Initial DCP note. HOT MAN reviewed EMR and met with pt to establish d/c needs. PCP: Dr. Sandra Garland. Payor: [facility]RI[facility] Adv. Pt presented to the ED on 02/16/19 complaining of chest pain w/related shoulder pain for 3-days prior to admission. This is the second time pt presented to the ED this week for the same reason. Per EMR, he has a event manager that follows him, however pt has a hx of poor f/u. He carries a diagnosis of schizoaffective disorder, and is closely followed by Dr. Jovel at [facility]. He presents as alert and oriented, able to make his needs known, is independent in all ADL's. He denies any needs or barriers to d/c, and will be driving himself home later today. No further needs/concerns identified at this time. Discharge Planning/Care Management CM Discharge Assessment Start: 02/17/19 14:21 Freq: Status: Active Protocol: Document 02/17/19 14:21 DPL (Rec: 02/17/19 14:30 DPL [id number]) Discharge Planning Assessment Assigned Embedded Software Manager Monica Lisa DPOA/Assigned Designee Name Not identified. Advance Directives? No History Provided By Patient,Medical Record Prior Living Arrangements House Household Members family Independent with ADL's Yes Is patient alert and oriented? Yes Comment Pt is independent with all ADL 's. Caregiver for Another No Comment Pt is well connected to community mental heatlh services, as well as [facility] program. He is followed by a case consultant through [facility] to help him to navigate ongoing community support and health needs. Comment N/A Comment None identified. Pt does have a close f/u appt. with Dr. Jovel. Comment Pt already established with Psychiatrist for therapy and med managment and SW to coordinate services. Barriers to Discharge No Discharge Plan Home Transportation Arrangement Father will bring pt's car for transport home at d/c.
--- NOTE | 2019-02-17 15:26 | PM.DS.1 ---
History of Present Illness History of Present Illness Date Patient Seen: 02/17/19 Time Patient Seen: 15:26 Chief complaint: chest pain,shoulder pain worse, stomach cramps Narrative: Mr. Pierre is a 58-year-old male with past medical history of schizoaffective disorder, CAD (CABG in 2007), hypertension, hyperlipidemia, sleep apnea on CPAP, obesity, mild tardive dyskinesia, hypothyroidism, and chronic pain who presented to the emergency room today with worsening chest pain. Patient states he has had chest pain for the past 3 days. Patient rates the pain as 8/10 described as someone sitting on his chest and radiates into his left neck. He has chronic chest pain, however this episode he thinks is worse and has lasted longer than previous episodes. The pain started after working outside with his father and has continued since. It does not seem to be exacerbated by movement and is constant. He has tried some uqyx-zth-upzcgai pain medications without relief. He had 3 sublingual nitroglycerins today but this did not help the pain. He further endorses diaphoresis, nausea, and mild arm tingling however when asked in relation to musculoskeletal complaints he denied this. None of the symptoms are exertional. He went to the ED on 02/13 when it started, but was sent home and told to come back if his chest pain did worsen, and this is why he presented today. He was evaluated at [facility] in [facility] approximately 2 months ago for chest pain, it is unclear if a stress test was done there, but discharge paperwork references a low risk nuclear stress test which may refer to the previous one done approximately 1 year ago. In the emergency room, vital signs were notable for mild hypertension, but otherwise unremarkable. His laboratory evaluation was notable for a hemoglobin of 11.9, stable from prior examinations. His electrolytes are unremarkable. BNP is 317 and initial troponin negative. EKG was unchanged from prior exams. Chest x-ray was also unremarkable. Case was discussed in the ER with on-call Cardiology. Given his symptoms, these are unlikely cardiac but he recommended a stress test which will be done tomorrow. Patient was admitted under observation status. Discharge Providers Provider Date of admission: 02/16/19 14:01 Discharge Date: 02/17/19 Primary care physician: Sandra Garland Consults: 02/16/19 15:26 Consult to Pastoral Services Routine Comment: pt would like if he's here on Wednesday02/16/19 17:43 Consult to Respiratory Therapy Evaluate & Treat Comment: CPAP @ night Physician Instructions: Evaluate and treat Discharge provider: Ric Sharma DO Summary Hospital Course Discharge Diagnosis: 1. Chest pain, acute on chronic, present on admission 2. CAD, chronic, present on admissio 3. Hypertension, chronic, present on admission 4. Hyperlipidemia, chronic 5. Schizoaffective disorder 6. Diabetes, type 2, on long-term insulin use 7. History of PE, on anticoagulation -continue home Xarelto Hospital Course: Mr. Pierre is a 58-year-old male with past medical history of schizoaffective disorder, CAD (CABG in 2007), hypertension, hyperlipidemia, sleep apnea on CPAP, obesity, mild tardive dyskinesia, hypothyroidism, PE with hypercoagulable state on Xarelto, and chronic pain who presented to the emergency room today with worsening chest pain. His initial troponins are negative and EKG is reassuring. Given his history and that the patient does not reliably follow up in Cardiology Clinic, Cardiology recommended that he have another stress test in the morning. His stress test again showed a defect in the same location as prior stress tests. Only stress imaging could be performed, however given the defect was located in the same location as last time, and given that the patient had tenderness on exam it is most likely that his chest pain is due to musculoskeletal issues. 1. Chest pain, acute on chronic, present on admission -patient has known CAD and stable angina which he is taking Imdur for, however patient states this is worse. Given tenderness on exam I do suspect a musculoskeletal cause. His stress testing was reassuring given that perfusion defect was in the same location as prior studies. -TSH, A1c, and lipid panel are all unremarkable -no need for repeat echo as BNP is actually lower than previous visits and patient with no dyspnea on exertion or orthopnea 2. CAD, chronic, present on admission -continue aspirin, imdur 3. Hypertension, chronic, present on admission -continue home medications while holding beta-ida prior to stress test. 4. Hyperlipidemia, chronic -continue Lipitor 40, fenofibrate 160 5. Schizoaffective disorder -continue home medications 6. Diabetes, type 2, on long-term insulin use -continue home regimen while inpatient 7. History of PE, on anticoagulation -continue home Xarelto Code: Full, surrogate decision maker he states is his father. DVT: On xarelto Dispo: admit under observation status. Exam Vital Signs (past 8 hours): - 02/17/19 08:00 02/17/19 13:00 Temperature 97.6 F 97.3 F L Pulse Rate 62 60 Respiratory Rate 20 18 Blood Pressure 153/84 H 151/58 H Pulse Oximetry 98 95 Oxygen Delivery Method CPAP Oxygen Flow Rate 0 Narrative Exam Narrative: GENERAL APPEARANCE: Obese male Well developed, well nourished, in no acute distress. SKIN: Inspection of the skin reveals no rashes, ulcerations or petechiae. HEENT: The sclerae were anicteric and conjunctivae were pink and moist. Extraocular movements were intact and pupils were equal, round with normal accommodation. External inspection of the ears and nose showed no scars, lesions, or masses. Lips, teeth, and gums showed normal mucosa. The oral mucosa, hard and soft palate, tongue and posterior pharynx were unremarkable. NECK: Supple and symmetric. There was no thyroid enlargement, and no tenderness, or masses were felt. CHEST: Normal AP diameter and normal contour without any kyphoscoliosis. There is chest wall tenderness. LUNGS: Auscultation of the lungs revealed no wheezes, rhonchi, or rales. CARDIOVASCULAR: There was a regular rate and rhythm without any murmurs, gallops, rubs. Peripheral pulses were 2+ and symmetric. ABDOMEN: Soft and nontender with normal bowel sounds. No ascites was noted. MUSCULOSKELETAL: There was left paraspinal tenderness in the cervical region. Muscle strength and tone were normal. EXTREMITIES: No cyanosis, clubbing or edema. NEUROLOGIC: Alert and oriented x 3. Normal affect. Gait was normal. Strength is +5/5 in the Upper Extremities and Lower Extremities Bilaterally. Sensation to touch was normal. Objective Labs Result Diagrams: 02/16/19 11:28 02/17/19 05:32 Labs: Laboratory Results - last 24 hr 02/16/19 02/17/19 02/17/19 17:57 05:32 05:32 Sodium 137 Potassium 4.0 Chloride 106 Carbon Dioxide 27 BUN 11 Creatinine 0.80 Estimated GFR > 60.0 BUN/Creatinine Ratio 13.8 Glucose 104 H Hemoglobin A1c 6.5 H Calcium 8.1 L Phosphorus 3.0 Magnesium 1.9 Troponin I < 0.012 Triglycerides 86 Cholesterol 125 L LDL Cholesterol, Calc 82 HDL Cholesterol 26 L TSH 02/17/19 05:32 Sodium Potassium Chloride Carbon Dioxide BUN Creatinine Estimated GFR BUN/Creatinine Ratio Glucose Hemoglobin A1c Calcium Phosphorus Magnesium Troponin I Triglycerides Cholesterol LDL Cholesterol, Calc HDL Cholesterol TSH 2.94 Discharge Plan Discharge Plan Patient Disposition: Home Discharge comment: Your were admitted to the hospital with chest pain. An exercise stress test showed no changes compared to your prior stress tests. Your chest pain is likely musculoskeletal. You should perform some stretching exercises at home and follow up with your primary care provider as well as your industrial truck mechanic for further management. No changes were made to your chronic medications. Discharge Med Rec/Prescriptions Prescriptions: Continued lisinopril 10 mg tablet 10 mg PO DAILY RF: 0 tamsulosin 0.4 mg capsule 0.4 mg PO QPM RF: 0 fluoxetine 40 mg capsule 80 mg PO DAILY Qty: 180 RF: 3 fenofibrate 160 mg tablet 160 mg PO DAILY RF: 0 tramadol 50 mg tablet 50 mg PO BID PRN (Reason: pain) RF: 0 vitamin E 600 unit capsule 600 unit PO DAILY Qty: 90 RF: 3 ziprasidone HCl 80 mg capsule 80 mg PO QPM Qty: 30 RF: 0 metformin [Glucophage XR] 500 MG tablet extended release 24 hr 500 mg PO BIDCC Qty: 60 RF: 0 nitroglycerin [Nitrostat] 0.4 mg Tablet, Sublingual 0.4 mg Sublingual Q5 MIN PRN PRN (Reason: Chest Pain) RF: 0 insulin glargine 100 unit/mL (3 mL) Insulin Pen 30 units Sub-Q BEDTIME RF: 0 atorvastatin 40 mg Tablet 40 mg PO BEDTIME RF: 0 levothyroxine [Synthroid] 75 mcg Tablet 75 mcg PO DAILY RF: 0 insulin aspart U-100 100 unit/mL Insulin Pen 20 - 30 units Sub-Q TIDWM RF: 0 aspirin 81 mg Tablet,Delayed Release (Dr/Ec) 81 mg PO DAILY RF: 0 spironolactone 25 mg Tablet 25 mg PO DAILY RF: 0 isosorbide mononitrate 60 mg Tablet Extended Release 24 Hr 60 mg PO DAILY RF: 0 Xarelto 20 mg Tablet 20 mg PO QPM RF: 0 biotin 5,000 mcg Tablet, Sublingual 5,000 mcg SUBLINGUAL DAILY RF: 0 furosemide 40 mg Tablet 40 mg PO DAILY RF: 0 sennosides [senna] 8.6 mg Tablet 8.6 mg PO DIRECTED RF: 0 hydrochlorothiazide 25 mg Tablet 25 mg PO DAILY RF: 0 cholecalciferol (vitamin D3) [Vitamin D3] 5,000 unit Tablet 5,000 unit PO DAILY RF: 0 metoprolol succinate [Toprol XL] 25 MG tablet extended release 24 hr 25 mg PO DAILY RF: 0 divalproex [Depakote] 500 mg Tablet,Delayed Release (Dr/Ec) 1,500 mg PO BEDTIME RF: 0 benztropine 1 mg Tablet 1 mg PO BID RF: 0 omeprazole 20 mg Capsule,Delayed Release(Dr/Ec) 20 mg PO DAILY RF: 0 divalproex [Depakote] 500 mg tablet,delayed release (DR/EC) 500 mg PO QAM RF: 0 gabapentin 300 mg capsule 300 mg PO TID RF: 0 (DME) ResMed AirCurve 10 BIPAP Qty: 1 RF: 0 Follow up/Referrals: Sandra Garland [Primary Care Provider] - Provider Discharge Instructions Diet: Diet as Tolerated, Carb-consistent/Diabetic and Low-sodium Activity: As tolerated Visit Report/Discharge Packet Visit Report Forms: Patient Portal/API, Stroke Signs & Symptoms Discharge Data Primary Care Provider: Sandra Garland Attending Provider: Ric Sharma Admreanna Date/Time: 02/16/19 14:01 Quality VTE Deep Vein Thrombosis/Pulmonary Embolism Present on Admission: No
--- NOTE | 2019-02-18 09:57 | DI.NM.S_ITS ---
DATE OF SERVICE: 02/17/2019 PROCEDURE PERFORMED: Pharmacologic vasodilator stress only myocardial perfusion imaging study with gating to assess ejection fraction and regional wall motion. ORDERING PROVIDER: Dr. Ric Sharma INDICATIONS: The patient is a 58-year-old male with a history of coronary artery disease and previous myocardial infarction with schizoaffective disorder who presents with chest discomfort and normal troponins. PHARMACOLOGIC STRESS: Regadenoson 0.4 mg was infused per protocol and augmented by walking on the treadmill. With this, he had no new chest discomfort but continued with his chronic chest, neck, and shoulder discomfort. His resting ECG is normal with Q waves inferiorly but normal ST segments and there are no ST segment shifts or arrhythmias seen with stress.. Per protocol, 26.1 mCi of technetium-99 Myoview was injected and then the patient was imaged 15 minutes later using a gated SPECT acquisition protocol. On the basis of his stress images compared to his old images, it was felt that resting images were not needed. FINDINGS: 1. Raw data: There is fairly poor myocardial tracer uptake. Lung/heart ratio is mildly elevated at 0.45, which can be a sign of pulmonary congestion. 2. Quantitative gated SPECT: Post-stress ejection fraction is estimated at 48% with probable hypokinesis in the inferior wall, although image quality is quite poor. End-diastolic volume is moderately elevated at 202 mL. 3. Myocardial perfusion imaging: Post-stress supine images show a severe perfusion defect in the majority of the inferior wall. Unfortunately, there are no prone images available to assess for diaphragmatic attenuation. In addition, there is a mild defect in the mid anterior wall. Compared to his post-stress supine images from his study from October 14, 2017, this perfusion defect remains unchanged and was fixed at that time without any significant reversibility. CONCLUSION: 1. Abnormal myocardial perfusion study. 2. Perfusion defects in the inferior wall and mid anterior wall. Given their identical appearance to his previous study, these most likely represent fixed defects. If there is a high degree of clinical concern for ischemia, resting images would need to be obtained although overall image quality is sufficiently low that slight variation could make comparison difficult. 3. Moderately enlarged left ventricle with mildly reduced left ventricular systolic function with inferior wall motion abnormality consistent with previous infarction. 4. No angina or ECG changes with pharmacologic stress but with continued atypical chest discomfort throughout. Luis E Pierre - RS/fn/ts doc#: [id number]/job#: [id number] dd: 02/17/2019 13:14:00 dt: 02/18/2019 08:57:00 DICTATING MD/COPIES TO: Dick Kelly MD; Ric Sharma M.D.; Scott Bar MD COPIES MNE: RANDAL KHAN
== END 2019-02-17 15:55 | disposition home or self-care (01) ==
LOC: ED 13:57 → AC 14:02
PROVIDERS: Admitting Provider Internal Medicine; Emergency Provider Emergency Medicine; PCP Family Medicine; Visit Provider Internal Medicine
DX: R07.9 Chest pain, unspecified (principal); I25.10 Atherosclerotic heart disease of native coronary artery without angina pectoris; Z95.1 Presence of aortocoronary bypass graft; I10 Essential (primary) hypertension; E78.5 Hyperlipidemia, unspecified; F25.9 Schizoaffective disorder, unspecified; E11.9 Type 2 diabetes mellitus without complications; Z79.4 Long term (current) use of insulin; Z86.711 Personal history of pulmonary embolism; Z79.01 Long term (current) use of anticoagulants
CPT/HCPCS: 36415; 71045; 78451; 80048; 80053; 80061; 82550; 82553; 82962; 83036; 83690; 83735; 83880; 84100; 84443; 84484; 85025; 85610; 85730; 93005; 93010; 93016; 93017; 93018; 94660; 94762; 96361; 96374; 96375; 99283; 99285; G0378; A9502; J1885; J2270; J2785

== ENCOUNTER → 2019-03-20 13:02 | Outpatient (CLI) | payer OTHER, SELFPAY ==
[2019-02-16 14:44] VITALS: BMI 39.5
--- NOTE | 2019-03-20 | DI.US.S_ITS ---
PROCEDURE: US EXTREMELY NONVASC UPPER RT INDICATIONS: BILAT ARM MASSES TECHNIQUE: Real-time scanning was performed of the right arm, with image documentation. COMPARISON: [facility], [place], US EXTREMITY NONVASC UPPER LT, 03/20/2019, 13:47. FINDINGS: Multiple, avascular isoechoic soft tissue mass is, largest measuring 2.9 cm which correspond to the palpable abnormalities. IMPRESSION: Possible soft tissue lipomas; although findings are nonspecific and differential would include both benign and malignant etiology. If indicated, soft tissue MRI could be performed. Dictated by: Noé GRAY Interpreted: Daryl Coffman MD on 03/20/2019 at 16:42 Approved by: Daryl Coffman M.D. on 03/21/2019 at 9:11
--- NOTE | 2019-03-20 | DI.US.S_ITS ---
PROCEDURE: US EXTREMITY NONVASC UPPER LT INDICATIONS: BILATERAL ARM MASSES TECHNIQUE: Real-time scanning was performed of the left arm, with image documentation. COMPARISON: None. FINDINGS:. Multiple, isoechoic, avascular soft tissue masses present, largest measuring up to 3.6 cm corresponding to the palpable abnormalities. IMPRESSION: Possible lipomas; although differential would include both benign and malignant etiology. If indicated, soft tissue MRI could be performed Dictated by: Noé GRAY Interpreted: Daryl Coffman MD on 03/20/2019 at 16:41 Approved by: Daryl Coffman M.D. on 03/21/2019 at 9:11
== END ==
PROVIDERS: PCP Family Medicine; Visit Provider Family Medicine
DX: R22.33 Localized swelling, mass and lump, upper limb, bilateral (principal)
CPT/HCPCS: 76882

== ENCOUNTER 2019-04-05 16:41 | Emergency (ER) | payer OTHER, SELFPAY ==
[2019-02-16 14:44] VITALS: BMI 39.5
[2019-04-05] VITALS (9 sets, daily range): BP systolic 154–175; BP diastolic 74–104; PULSE 49–81; RESP 18–25; TEMP 36.6; O2SAT 95–99
--- NOTE | 2019-04-05 17:12 | DI.RAD.S_ITS ---
PROCEDURE: XR CHEST 1V INDICATIONS: chest pain TECHNIQUE: One view of the chest was acquired. COMPARISON: [facility], [place], XR CHEST 1V, 02/16/2019, 11:19. FINDINGS: Surgical changes and devices: Status post CABG procedure. Lungs and pleura: Focal air space opacity in the left upper lobe. Small posterior layering left sided pleural effusion. No pneumothorax. Mediastinum: Mediastinal contours appear normal. Heart is enlarged. Bones and chest wall: No suspicious bony lesions. Overlying soft tissues appear unremarkable. IMPRESSION: Left upper lobe focal airspace opacity and small subpleural effusion concerning for pneumonia. Dictated by: Latosha Turner MD, PhD on 04/05/2019 at 17:54 Approved by: Latosha Turner MD, PhD on 04/05/2019 at 17:56
[2019-04-05] MEDS: MORPHINE 4 MG/ML INJ IM (17:23)
[2019-04-05 17:38] LABS: Alanine Aminotransferase 14 IU/L (<50); Albumin 3.8 g/dL (3.5-5.0); Albumin Globulin Ratio 1.4 (1.0-2.8); Alkaline Phosphatase 53 U/L (38-126); Aspartate Aminotransferase 17 IU/L (17-59); Bilirubin Total 0.4 mg/dL (0.2-1.3); Blood Urea Nitrogen 15 mg/dL (9-20); Calcium 8.8 mg/dL (8.4-10.2); Carbon Dioxide 27 mmol/L (22-32); Chloride 103 mmol/L (98-107); Creatine Kinase 167 U/L (55-170); Estimated Glomerular Filt Rate > 60.0 mL/min (>60); Globulin 2.8 g/dL (1.7-4.1); Glucose 115 mg/dL (70-100); HEMOLYSIS < 15 (0-50); Lipase 31 U/L (23-300); Potassium 4.1 mmol/L (3.4-5.1); Sodium 138 mmol/L (137-145); Total Protein 6.6 g/dL (6.3-8.2)
[2019-04-05 17:47] LABS: B Type Natriuretic Peptide 344 (<100)
[2019-04-05 17:50] LABS: Troponin I 0.019 ng/mL (0.01-0.034)
[2019-04-05 17:52] LABS: Add Manual Diff / Slide Review NO; Basophils Absolute Auto 100 /uL (0-100); Basophils Percent Auto 0.9 % (0-2); Eosinophils Absolute Auto 100 /uL (0-450); Eosinophils Percent Auto 1.5 % (2-4); Hematocrit 35.8 % (41-53); Lymphocytes Absolute Auto 2000 /uL (1100-4500); Lymphocytes Percent Auto 20.1 % (25-40); Mean Corpuscular HGB Conc 33.4 % (30-36); Mean Corpuscular Hemoglobin 29.1 PG (26-34); Monocytes Absolute Auto 600 /uL (0-900); Monocytes Percent Auto 6.1 % (3-14); Neutrophils Absolute Auto 7100 /uL (1500-7000); Neutrophils Percent Auto 71.4 % (50-75); Platelet Count 200 X10^3/uL (150-400); Red Blood Cell Count 4.12 X10^6/uL (4.5-5.9); Red Cell Distribution Width 15.7 % (11.6-14.8); White Blood Cell Count 9.9 X10^3/uL (4.5-11.0)
[2019-04-05 17:54] LABS: Creatine Kinase MB 1.74 ng/mL (<2.37)
--- NOTE | 2019-04-05 18:04 | ED_ITS ---
HPI - Chest Pain <Tsering Phillip, DO - Last Filed: 04/06/19 07:28> General Chief Complaint: Chest Pain Stated Complaint: massive chest pain Time Seen by Provider: 04/05/19 16:42 Source: patient Mode of arrival: Family Vehicle Limitations: no limitations History of Present Illness HPI narrative: Patient is a 58-year-old male with known coronary artery disease 5 vessel CABG multiple stents, presenting today with severe chest pain. He took 6 nitroglycerin prior to arrival within an hour. He was admitted in February with chest pain and had a myocardial bean scan. He has previously been lost to follow-up however his chest pain has been thought to be noncardiac in nature. He denies any fever or productive cough however he says that since his chest pain started an hour ago he has been chilled and can't get warm. He denies any passing-out no shortness of breath with exertion no swelling in his legs. Previously his chest pain has been resolved with morphine MD complaint: chest pain Duration: constant Onset: during rest Pain location: substernal Severity: moderate Relieving factors: nothing Exacerbating factors: nothing Related Data Home Medications Medication Instructions Recorded Confirmed metformin [Glucophage XR] 500 mg PO BIDCC #60 tab 12/25/16 03/17/19 atorvastatin 40 mg PO BEDTIME 10/12/17 03/17/19 insulin aspart U-100 20 - 30 units SUB-Q TIDWM 10/12/17 03/17/19 insulin glargine 30 units SUB-Q BEDTIME 10/12/17 03/17/19 levothyroxine [Synthroid] 75 mcg PO DAILY 10/12/17 03/17/19 nitroglycerin [Nitrostat] 0.4 mg SUBLINGUAL Q5 MIN PRN PRN 10/12/17 03/17/19 lisinopril 10 mg tablet 10 mg PO DAILY 02/07/18 03/17/19 tamsulosin 0.4 mg capsule 0.4 mg PO QPM 02/07/18 03/17/19 cholecalciferol (vitamin D3) 5,000 unit PO DAILY 05/26/18 03/17/19 [Vitamin D3] furosemide 40 mg PO DAILY 05/26/18 03/17/19 hydrochlorothiazide 25 mg PO DAILY 05/26/18 03/17/19 metoprolol succinate [Toprol XL] 25 mg PO DAILY 05/26/18 03/17/19 ResMed AirCurve 10 BIPAP #1 ea 06/09/18 03/17/19 fenofibrate 160 mg tablet 160 mg PO DAILY 12/16/18 03/17/19 tramadol 50 mg tablet 50 mg PO BID PRN 12/16/18 03/17/19 benztropine 1 mg PO BID 12/20/18 03/17/19 divalproex [Depakote] 1,500 mg PO BEDTIME 12/20/18 03/17/19 divalproex [Depakote] 500 mg PO QAM 12/20/18 03/17/19 omeprazole 20 mg PO DAILY 12/20/18 03/17/19 Xarelto 20 mg PO QPM 02/16/19 03/17/19 aspirin 81 mg PO DAILY 02/16/19 03/17/19 isosorbide mononitrate 60 mg PO DAILY 02/16/19 03/17/19 spironolactone 25 mg PO DAILY 02/16/19 03/17/19 gabapentin 300 mg capsule 600 mg PO BEDTIME cap 03/17/19 03/17/19 Previous Rx's Medication Instructions Recorded fluoxetine 40 mg capsule 80 mg PO DAILY #180 cap 05/31/18 vitamin E 600 unit capsule 600 unit PO DAILY #90 cap 12/16/18 ziprasidone HCl 80 mg capsule 80 mg PO QPM #90 cap 03/17/19 levofloxacin [Levaquin] 750 mg PO DAILY #7 tab 04/05/19 Allergies Allergy/AdvReac Type Severity Reaction Status Date / Time Penicillins [PENICILLINS] Allergy Severe Swelling Verified 03/17/19 08:03 of Lip/Tongue/Throat Review of Systems <Tsering Fisher, DO - Last Filed: 04/06/19 07:28> Review of Systems Narrative: GENERAL: Denies chills, fatigue, malaise, fever, sweats, travel HEENT: Denies sinus pain, ear pain, sore throat, difficulty swallowing, neck pain RESPIRATORY: Denies dyspnea, cough, wheezing, hemoptysis, sputum. CARDIOVASCULAR: See HPI GASTROINTESTINAL: Denies nausea, vomiting, abdominal pain, diarrhea, constipation, melena. : Denies dysuria, frequency, incontinence, hematuria, urinary retention, flank pain. MUSCULOSKELETAL: Denies weakness, joint pain, or bony pain SKIN: No rash, no erythema, no pruritus NEUROLOGIC: Denies weakness, dizziness, headache, numbness, change in speech, confusion PSYCHIATRIC: No concerning psychosocial issues. 12 point review of systems is negative except for those stated above and HPI Patient History <Tsering Fisher DO - Last Filed: 04/06/19 07:28> Medical History CAD (coronary artery disease) (Chronic) Chronic left shoulder pain (Acute) Diabetes type 2, controlled (Chronic) HTN (hypertension) (Chronic) Hyperlipidemia (Chronic) Obstructive sleep apnea of adult (Chronic) Pulmonary embolism (Acute) Schizoaffective disorder (Chronic) Surgical History Hx of CABG (Chronic) Family History Mother Coronary artery disease Father No problems noted. Social History marital status: unmarried,single details: lives with his parents household members: family lives independently: Yes caregiver/support person: Yes housing: house pets and animals: Yes Smoking Status: Former smoker alcohol intake: never substance use type: does not use Smoking Status: Former smoker alcohol intake frequency: 0-2 drinks per day Substance Use Type: does not use Exam <Tsering Fisher DO - Last Filed: 04/06/19 07:28> Initial Vital Signs Initial Vital Signs: Vital Signs Pulse Rate 64 04/05/19 16:45 Respiratory Rate 25 H 04/05/19 16:45 Blood Pressure 164/100 H 04/05/19 16:45 GENERAL: Alert overweight male and in [no acute] distress. HEENT: Head atraumatic,EOMI, pupils reactive, face symmetric, CARDIOVASCULAR: Regular rate and rhythm without murmurs, rubs or gallops. Pain not reproducible with palpation or left arm movement RESPIRATORY: Breath sounds equal bilaterally, no wheezes rales or rhonchi. ABDOMEN: Soft, nontender. Normoactive bowel sounds all 4 quadrants. No guarding or rebound. EXTREMITIES: Normal range of motion, no clubbing or edema. Neurovascularly intact NEUROLOGICAL: Alert and oriented x4.Normal gait and speech. Cranial nerves II through XII grossly intact. SKIN: Warm, dry, no laceration, no petechiae, no rashes or lesions. <Gera Colindres DO - Last Filed: 04/06/19 00:24> Initial Vital Signs Initial Vital Signs: Vital Signs Pulse Rate 64 04/05/19 16:45 Respiratory Rate 25 H 04/05/19 16:45 Blood Pressure 164/100 H 04/05/19 16:45 Course <Tsering Fisher DO - Last Filed: 04/06/19 07:28> Orders Ordered: Discontinued Medications Hydromorphone HCl (Dilaudid) 0.5 mg IV NOW ONE Stop: 04/05/19 18:05 Last Admin: 04/05/19 18:16 Dose: 0.5 mg Documented by: GLEN Ketorolac Tromethamine (Toradol) 15 mg IV NOW ONE Stop: 04/05/19 18:05 Last Admin: 04/05/19 18:16 Dose: 15 mg Documented by: GLEN Ketorolac Tromethamine (Toradol) 15 mg IV NOW ONE Stop: 04/05/19 19:31 Last Admin: 04/05/19 19:34 Dose: 15 mg Documented by: GLEN Levofloxacin (Levaquin) 750 mg PO NOW ONE Stop: 04/05/19 21:48 Last Admin: 04/05/19 21:53 Dose: 750 mg Documented by: LANE Morphine Sulfate (Morphine) 4 mg IM NOW ONE Stop: 04/05/19 17:13 Last Admin: 04/05/19 17:23 Dose: 4 mg Documented by: GLEN Vital Signs Vital signs: Vital Signs - 8 hr 04/05/19 16:45 04/05/19 16:47 04/05/19 17:00 Temperature 97.8 F Pulse Rate 64 70 60 Respiratory Rate 25 H 24 24 Blood Pressure 164/100 H Blood Pressure [Right Arm] 164/100 H 168/74 H Pulse Oximetry 95 04/05/19 17:30 04/05/19 18:00 04/05/19 18:30 Temperature Pulse Rate 59 L 57 L 56 L Respiratory Rate 24 23 22 Blood Pressure Blood Pressure [Right Arm] 164/85 H 163/84 H 175/80 H Pulse Oximetry 95 95 04/05/19 20:00 04/05/19 21:07 04/05/19 22:26 Temperature Pulse Rate 56 L 49 L 81 Respiratory Rate 25 H 23 18 Blood Pressure 154/75 H Blood Pressure [Right Arm] 156/104 H 167/75 H Pulse Oximetry 99 95 97 <Gera Hernandezan, DO - Last Filed: 04/06/19 00:24> Course Course Narrative: Patient received in sign-out from Dr. Fisher. I have performed an independent history and physical. Patient has sharp and stabbing, pleuritic L sided chest pain and a chest Xray consistent with pneumonia. PE considered but thought less likely due to negative CTA. Multiple nonischemic EKGs obtained and multiple troponins are negative. I've called parole or probation officer cardiology at [facility] and discussed the case. She shares the opinion that this is unlikely of an ischemic etiology and he's appropriate for DC with close follow up. Patient understands and agrees with plan. He his had all of his questions answered to his apparent satisfaction and understands return precautions. Orders Ordered: Discontinued Medications Hydromorphone HCl (Dilaudid) 0.5 mg IV NOW ONE Stop: 04/05/19 18:05 Last Admin: 04/05/19 18:16 Dose: 0.5 mg Documented by: GLEN Ketorolac Tromethamine (Toradol) 15 mg IV NOW ONE Stop: 04/05/19 18:05 Last Admin: 04/05/19 18:16 Dose: 15 mg Documented by: GLEN Ketorolac Tromethamine (Toradol) 15 mg IV NOW ONE Stop: 04/05/19 19:31 Last Admin: 04/05/19 19:34 Dose: 15 mg Documented by: GLEN Levofloxacin (Levaquin) 750 mg PO NOW ONE Stop: 04/05/19 21:48 Last Admin: 04/05/19 21:53 Dose: 750 mg Documented by: LANE Morphine Sulfate (Morphine) 4 mg IM NOW ONE Stop: 04/05/19 17:13 Last Admin: 04/05/19 17:23 Dose: 4 mg Documented by: GLEN Vital Signs Vital signs: Vital Signs - 8 hr 04/05/19 16:45 04/05/19 16:47 04/05/19 17:00 Temperature 97.8 F Pulse Rate 64 70 60 Respiratory Rate 25 H 24 24 Blood Pressure 164/100 H Blood Pressure [Right Arm] 164/100 H 168/74 H Pulse Oximetry 95 04/05/19 17:30 04/05/19 18:00 04/05/19 18:30 Temperature Pulse Rate 59 L 57 L 56 L Respiratory Rate 24 23 22 Blood Pressure Blood Pressure [Right Arm] 164/85 H 163/84 H 175/80 H Pulse Oximetry 95 95 04/05/19 20:00 04/05/19 21:07 04/05/19 22:26 Temperature Pulse Rate 56 L 49 L 81 Respiratory Rate 25 H 23 18 Blood Pressure 154/75 H Blood Pressure [Right Arm] 156/104 H 167/75 H Pulse Oximetry 99 95 97 MDM - Chest Pain <Tsering Fisher DO - Last Filed: 04/06/19 07:28> Lab Data Attestation: I reviewed the patient's lab results. Result diagrams: 04/05/19 17:10 04/05/19 17:18 Labs: Lab Results 04/05/19 04/05/19 04/05/19 Range/Units 17:00 17:10 17:18 WBC 9.9 (4.5-11.0) X10^3/uL RBC 4.12 L (4.5-5.9) X10^6/uL Hgb 12.0 L (13.5-17.5) g/dL Hct 35.8 L (41-53) % MCV 87.0 (80-100) fL MCH 29.1 (26-34) PG MCHC 33.4 (30-36) % RDW 15.7 H (11.6-14.8) % Plt Count 200 (150-400) X10^3/uL Neut % (Auto) 71.4 (50-75) % Lymph % (Auto) 20.1 L (25-40) % Bath % (Auto) 6.1 (3-14) % Eos % (Auto) 1.5 L (2-4) % Baso % (Auto) 0.9 (0-2) % Neut # (Auto) 7100 H (4594-4549) /uL Lymph # (Auto) 2000 (3450-8640) /uL Bath # (Auto) 600 (0-900) /uL Eos # (Auto) 100 (0-450) /uL Baso # (Auto) 100 (0-100) /uL Sodium 138 (137-145) mmol/L Potassium 4.1 (3.4-5.1) mmol/L Chloride 103 (98-107) mmol/L Carbon Dioxide 27 (22-32) mmol/L BUN 15 (9-20) mg/dL Creatinine 1.00 (0.66-1.25) mg/dL Estimated GFR > 60.0 (>60) mL/min BUN/Creatinine Ratio 15.0 (6-22) Glucose 115 H (70-100) mg/dL Calcium 8.8 (8.4-10.2) mg/dL Total Bilirubin 0.4 (0.2-1.3) mg/dL AST 17 (17-59) IU/L ALT 14 (<50) IU/L Alkaline Phosphatase 53 (38-126) U/L Total Creatine Kinase 167 (55-170) U/L CK-MB (CK-2) 1.74 (<2.37) ng/mL CK-MB (CK-2) Rel Index 1.0 L (1.5-5.0) % Troponin I 0.019 (0.01-0.034) ng/mL B-Natriuretic Peptide 344 H (<100) Total Protein 6.6 (6.3-8.2) g/dL Albumin 3.8 (3.5-5.0) g/dL Globulin 2.8 (1.7-4.1) g/dL Albumin/Globulin Ratio 1.4 (1.0-2.8) Lipase 31 (23-300) U/L Procalcitonin (<0.5) ng/mL Influenza A (RT-PCR) Flu a negative (NEGATIVE) Influenza B (RT-PCR) Flu b negative (NEGATIVE) 04/05/19 04/05/19 Range/Units 17:18 19:44 WBC (4.5-11.0) X10^3/uL RBC (4.5-5.9) X10^6/uL Hgb (13.5-17.5) g/dL Hct (41-53) % MCV (80-100) fL MCH (26-34) PG MCHC (30-36) % RDW (11.6-14.8) % Plt Count (150-400) X10^3/uL Neut % (Auto) (50-75) % Lymph % (Auto) (25-40) % Bath % (Auto) (3-14) % Eos % (Auto) (2-4) % Baso % (Auto) (0-2) % Neut # (Auto) (9184-8875) /uL Lymph # (Auto) (3929-6295) /uL Bath # (Auto) (0-900) /uL Eos # (Auto) (0-450) /uL Baso # (Auto) (0-100) /uL Sodium (137-145) mmol/L Potassium (3.4-5.1) mmol/L Chloride (98-107) mmol/L Carbon Dioxide (22-32) mmol/L BUN (9-20) mg/dL Creatinine (0.66-1.25) mg/dL Estimated GFR (>60) mL/min BUN/Creatinine Ratio (6-22) Glucose (70-100) mg/dL Calcium (8.4-10.2) mg/dL Total Bilirubin (0.2-1.3) mg/dL AST (17-59) IU/L ALT (<50) IU/L Alkaline Phosphatase (38-126) U/L Total Creatine Kinase (55-170) U/L CK-MB (CK-2) (<2.37) ng/mL CK-MB (CK-2) Rel Index (1.5-5.0) % Troponin I 0.027 (0.01-0.034) ng/mL B-Natriuretic Peptide (<100) Total Protein (6.3-8.2) g/dL Albumin (3.5-5.0) g/dL Globulin (1.7-4.1) g/dL Albumin/Globulin Ratio (1.0-2.8) Lipase (23-300) U/L Procalcitonin < 0.05 (<0.5) ng/mL Influenza A (RT-PCR) (NEGATIVE) Influenza B (RT-PCR) (NEGATIVE) Imaging Data Chest x-ray: Radiologist's Impression: PROCEDURE: XR CHEST 1V INDICATIONS: chest pain TECHNIQUE: One view of the chest was acquired. COMPARISON: [facility], , XR CHEST 1V, 02/16/2019, 11:19. FINDINGS: Surgical changes and devices: Status post CABG procedure. Lungs and pleura: Focal air space opacity in the left upper lobe. Small posterior layering left sided pleural effusion. No pneumothorax. Mediastinum: Mediastinal contours appear normal. Heart is enlarged. Bones and chest wall: No suspicious bony lesions. Overlying soft tissues appear unremarkable. IMPRESSION: Left upper lobe focal airspace opacity and small subpleural effusion concerning for pneumonia. Dictated by: Latosha Turner MD, PhD on 04/05/2019 at 17:54 ECG Data Attestation: I personally reviewed and interpreted this ECG as follows: Prior ECG tracings: available for review Interpretation: Sinus rhythm rate 64 p.r. interval [address] elevation depression or T-wave inversion Q-waves noted in inferior leads similar to previous EKG MDM Narrative Medical decision making narrative: Waiting for rest of patient blood work perfusion test from last month is abnormal he has inferior and mid anterior wall defects thought to be fixed and unchanged.. Patient signed out to Dr. Colindres for further management. <Gera Colindres, DO - Last Filed: 04/06/19 00:24> Lab Data Labs: Lab Results 04/05/19 04/05/19 04/05/19 Range/Units 17:00 17:10 17:18 WBC 9.9 (4.5-11.0) X10^3/uL RBC 4.12 L (4.5-5.9) X10^6/uL Hgb 12.0 L (13.5-17.5) g/dL Hct 35.8 L (41-53) % MCV 87.0 (80-100) fL MCH 29.1 (26-34) PG MCHC 33.4 (30-36) % RDW 15.7 H (11.6-14.8) % Plt Count 200 (150-400) X10^3/uL Neut % (Auto) 71.4 (50-75) % Lymph % (Auto) 20.1 L (25-40) % Bath % (Auto) 6.1 (3-14) % Eos % (Auto) 1.5 L (2-4) % Baso % (Auto) 0.9 (0-2) % Neut # (Auto) 7100 H (3696-8650) /uL Lymph # (Auto) 2000 (0509-6442) /uL Bath # (Auto) 600 (0-900) /uL Eos # (Auto) 100 (0-450) /uL Baso # (Auto) 100 (0-100) /uL Sodium 138 (137-145) mmol/L Potassium 4.1 (3.4-5.1) mmol/L Chloride 103 (98-107) mmol/L Carbon Dioxide 27 (22-32) mmol/L BUN 15 (9-20) mg/dL Creatinine 1.00 (0.66-1.25) mg/dL Estimated GFR > 60.0 (>60) mL/min BUN/Creatinine Ratio 15.0 (6-22) Glucose 115 H (70-100) mg/dL Calcium 8.8 (8.4-10.2) mg/dL Total Bilirubin 0.4 (0.2-1.3) mg/dL AST 17 (17-59) IU/L ALT 14 (<50) IU/L Alkaline Phosphatase 53 (38-126) U/L Total Creatine Kinase 167 (55-170) U/L CK-MB (CK-2) 1.74 (<2.37) ng/mL CK-MB (CK-2) Rel Index 1.0 L (1.5-5.0) % Troponin I 0.019 (0.01-0.034) ng/mL B-Natriuretic Peptide 344 H (<100) Total Protein 6.6 (6.3-8.2) g/dL Albumin 3.8 (3.5-5.0) g/dL Globulin 2.8 (1.7-4.1) g/dL Albumin/Globulin Ratio 1.4 (1.0-2.8) Lipase 31 (23-300) U/L Procalcitonin (<0.5) ng/mL Influenza A (RT-PCR) Flu a negative (NEGATIVE) Influenza B (RT-PCR) Flu b negative (NEGATIVE) 04/05/19 04/05/19 Range/Units 17:18 19:44 WBC (4.5-11.0) X10^3/uL RBC (4.5-5.9) X10^6/uL Hgb (13.5-17.5) g/dL Hct (41-53) % MCV (80-100) fL MCH (26-34) PG MCHC (30-36) % RDW (11.6-14.8) % Plt Count (150-400) X10^3/uL Neut % (Auto) (50-75) % Lymph % (Auto) (25-40) % Bath % (Auto) (3-14) % Eos % (Auto) (2-4) % Baso % (Auto) (0-2) % Neut # (Auto) (2888-5676) /uL Lymph # (Auto) (9549-3550) /uL Bath # (Auto) (0-900) /uL Eos # (Auto) (0-450) /uL Baso # (Auto) (0-100) /uL Sodium (137-145) mmol/L Potassium (3.4-5.1) mmol/L Chloride (98-107) mmol/L Carbon Dioxide (22-32) mmol/L BUN (9-20) mg/dL Creatinine (0.66-1.25) mg/dL Estimated GFR (>60) mL/min BUN/Creatinine Ratio (6-22) Glucose (70-100) mg/dL Calcium (8.4-10.2) mg/dL Total Bilirubin (0.2-1.3) mg/dL AST (17-59) IU/L ALT (<50) IU/L Alkaline Phosphatase (38-126) U/L Total Creatine Kinase (55-170) U/L CK-MB (CK-2) (<2.37) ng/mL CK-MB (CK-2) Rel Index (1.5-5.0) % Troponin I 0.027 (0.01-0.034) ng/mL B-Natriuretic Peptide (<100) Total Protein (6.3-8.2) g/dL Albumin (3.5-5.0) g/dL Globulin (1.7-4.1) g/dL Albumin/Globulin Ratio (1.0-2.8) Lipase (23-300) U/L Procalcitonin < 0.05 (<0.5) ng/mL Influenza A (RT-PCR) (NEGATIVE) Influenza B (RT-PCR) (NEGATIVE) Discharge Plan Departure Patient Disposition: Home Clinical Impression: Atypical chest pain Pneumonia Qualifiers: Pneumonia type: due to unspecified organism Laterality: left Lung location: upper lobe of lung Qualified Code(s): J18.9 - Pneumonia, unspecified organism Discharge Date/Time: 04/05/19 22:28 Activity Restrictions/Additional Instructions: *You have been diagnosed with [atypical, pleuritic-type chest pain and left upper lobe pneumonia] *What to do: *Take medications as directed *Follow up with your primary care provider in 2-3 days, call tomorrow morning for an appointment. Let them know you were seen in the Emergency Department and that we ask that you be seen in follow up *Return to ER if you should have any new, worsening or concerning symptoms, such as [worsening pain, shortness of breath, vomiting, or other bothersome symptoms] You had a CT scan today with IV contrast, this can cause a problem with your kidneys if you take Metformin. Please DO NOT TAKE your Metformin for 2 days. Prescriptions: New levofloxacin [Levaquin] 750 mg tablet 750 mg PO DAILY Qty: 7 RF: 0 No Action lisinopril 10 mg tablet 10 mg PO DAILY RF: 0 tamsulosin 0.4 mg capsule 0.4 mg PO QPM RF: 0 fluoxetine 40 mg capsule 80 mg PO DAILY Qty: 180 RF: 3 ziprasidone HCl 80 mg capsule 80 mg PO QPM Qty: 90 RF: 3 gabapentin 300 mg capsule 600 mg PO BEDTIME RF: 0 fenofibrate 160 mg tablet 160 mg PO DAILY RF: 0 tramadol 50 mg tablet 50 mg PO BID PRN (Reason: pain) RF: 0 vitamin E 600 unit capsule 600 unit PO DAILY Qty: 90 RF: 3 metformin [Glucophage XR] 500 MG tablet extended release 24 hr 500 mg PO BIDCC Qty: 60 RF: 0 nitroglycerin [Nitrostat] 0.4 mg Tablet, Sublingual 0.4 mg Sublingual Q5 MIN PRN PRN (Reason: Chest Pain) RF: 0 insulin glargine 100 unit/mL (3 mL) Insulin Pen 30 units Sub-Q BEDTIME RF: 0 atorvastatin 40 mg Tablet 40 mg PO BEDTIME RF: 0 levothyroxine [Synthroid] 75 mcg Tablet 75 mcg PO DAILY RF: 0 insulin aspart U-100 100 unit/mL Insulin Pen 20 - 30 units Sub-Q TIDWM RF: 0 aspirin 81 mg Tablet,Delayed Release (Dr/Ec) 81 mg PO DAILY RF: 0 spironolactone 25 mg Tablet 25 mg PO DAILY RF: 0 isosorbide mononitrate 60 mg Tablet Extended Release 24 Hr 60 mg PO DAILY RF: 0 Xarelto 20 mg Tablet 20 mg PO QPM RF: 0 furosemide 40 mg Tablet 40 mg PO DAILY RF: 0 hydrochlorothiazide 25 mg Tablet 25 mg PO DAILY RF: 0 cholecalciferol (vitamin D3) [Vitamin D3] 5,000 unit Tablet 5,000 unit PO DAILY RF: 0 metoprolol succinate [Toprol XL] 25 MG tablet extended release 24 hr 25 mg PO DAILY RF: 0 divalproex [Depakote] 500 mg Tablet,Delayed Release (Dr/Ec) 1,500 mg PO BEDTIME RF: 0 benztropine 1 mg Tablet 1 mg PO BID RF: 0 omeprazole 20 mg Capsule,Delayed Release(Dr/Ec) 20 mg PO DAILY RF: 0 divalproex [Depakote] 500 mg tablet,delayed release (DR/EC) 500 mg PO QAM RF: 0 (DME) ResMed AirCurve 10 BIPAP Qty: 1 RF: 0 Referrals: Sandra Garland [Primary Care Provider] -
[2019-04-05 18:11] LABS: Influenza A - CEPHEID Flu A NEGATIVE (NEGATIVE); Influenza B - CEPHEID Flu B NEGATIVE (NEGATIVE)
[2019-04-05] MEDS: HYDROMORPHONE 0.5 MG INJ IV (18:16)
[2019-04-05] MEDS: KETOROLAC 60 MG/2 ML VIAL 15 MG IV ×2 (18:16→19:34)
[2019-04-05 19:00] LABS: Procalcitonin < 0.05 ng/mL (<0.5)
--- NOTE | 2019-04-05 19:27 | DI.CT.S_ITS ---
PROCEDURE: CT ANGIO CHEST PE PROTOCOL INDICATIONS: pleuritic CP, hx PE TECHNIQUE: After the administration of intravenous contrast, 2 mm thick sections acquired from the pulmonary apices to the posterior costophrenic angles. 3-dimensional maximum intensity projection (MIP) coronal and sagittal reformats were then acquired through the thorax. For radiation dose reduction, the following was used: automated exposure control, adjustment of mA and/or kV according to patient size. COMPARISON: [facility], CR, XR CHEST 1V, 04/05/2019, 17:42. FINDINGS: Image quality: Excellent. Pulmonary arteries: Pulmonary arteries are normal in size, and demonstrate no intraluminal filling defects to suggest central pulmonary embolism. Lungs and pleura: Focal opacity noted in left upper lobe concerning for pneumonia. Patchy opacities noted in the dependent portion of the lungs bilaterally which could represent pulmonary edema or multifocal pneumonia. Small bilateral pleural effusions. No pneumothorax. Central and peripheral airways are patent. Mediastinum: Postsurgical changes compatible prior CABG procedure. Heart is enlarged without pericardial effusion. No mediastinal or hilar adenopathy. Thoracic aorta is normal in caliber and enhancement. Esophagus is normal in caliber, without hiatal hernia. Bones and chest wall: No suspicious bony lesions. Ribs and thoracic spine appear intact throughout. Thyroid gland is within normal limits. No axillary or supraclavicular adenopathy. Abdomen: Visualized upper abdominal solid organs appear normal in the early arterial phase of enhancement. IMPRESSION: 1. No pulmonary embolus. 2. Left upper lobe pneumonia. 3. Patchy opacities in the dependent portions of lungs bilaterally compatible with pulmonary edema versus multilobar pneumonia. 4. Small bilateral pleural effusions. 5. Cardiomegaly. Dictated by: Latosha Turner MD, PhD on 04/05/2019 at 20:45 Approved by: Latosha Turner MD, PhD on 04/05/2019 at 20:50
[2019-04-05 20:17] LABS: Troponin I 0.027 ng/mL (0.01-0.034)
[2019-04-05] MEDS: levoFLOXacin 250 MG TABLET 750 MG PO (21:53)
== END 2019-04-05 22:28 | disposition home or self-care (01) ==
PROVIDERS: Emergency Medicine; Emergency Provider Emergency Medicine; PCP Family Medicine
DX: J18.9 Pneumonia, unspecified organism (principal); R07.89 Other chest pain
CPT/HCPCS: 36415; 71045; 71275; 80053; 82550; 82553; 83690; 83880; 84145; 84484; 85025; 87502; 93005; 96372; 96374; 96375; 96376; 99284; 99285; J1170; J1885; J2270; Q9967

== ENCOUNTER 2019-04-06 14:53 | Emergency (ER) | payer OTHER, SELFPAY ==
[2019-02-16 14:44] VITALS: BMI 39.5
[2019-04-06 15:01] VITALS: BP 173/73; PULSE 65; RESP 22; TEMP 36.8; O2SAT 100; BMI 42.2
--- NOTE | 2019-04-06 15:04 | DI.RAD.S_ITS ---
PROCEDURE: XR CHEST 1V INDICATIONS: chest pain TECHNIQUE: One view of the chest was acquired. COMPARISON: [facility], CT, CT ANGIO CHEST PE PROTOCOL, 04/05/2019, 19:33. [facility], CR, XR CHEST 1V, 04/05/2019, 17:42. FINDINGS: Surgical changes and devices: Remote CABG Lungs and pleura: Fluffy consolidation, left lung. No pleural effusions or pneumothorax. Mediastinum: Mediastinal contours appear normal. Cardiomegaly. Bones and chest wall: No suspicious bony lesions. Overlying soft tissues appear unremarkable. IMPRESSION: Asymmetric unilateral pulmonary edema versus left-sided pneumonia. Recommend progress films Dictated by: Robin Goel M.D. on 04/06/2019 at 16:13 Approved by: Robin Goel M.D. on 04/06/2019 at 16:24
[2019-04-06 16:00] VITALS: PULSE 55; RESP 24; O2SAT 92
[2019-04-06 16:05] LABS: Add Manual Diff / Slide Review NO; Basophils Absolute Auto 100 /uL (0-100); Basophils Percent Auto 0.9 % (0-2); Eosinophils Absolute Auto 100 /uL (0-450); Eosinophils Percent Auto 1.4 % (2-4); Hematocrit 34.3 % (41-53); Hemoglobin 11.6 g/dL (13.5-17.5); Lymphocytes Absolute Auto 1600 /uL (1100-4500); Lymphocytes Percent Auto 21.9 % (25-40); Mean Corpuscular HGB Conc 33.6 % (30-36); Mean Corpuscular Hemoglobin 29.1 PG (26-34); Mean Corpuscular Volume 86.6 fL (80-100); Monocytes Absolute Auto 400 /uL (0-900); Monocytes Percent Auto 5.9 % (3-14); Neutrophils Absolute Auto 5100 /uL (1500-7000); Neutrophils Percent Auto 69.9 % (50-75); Platelet Count 156 X10^3/uL (150-400); Red Blood Cell Count 3.97 X10^6/uL (4.5-5.9); Red Cell Distribution Width 15.6 % (11.6-14.8); White Blood Cell Count 7.4 X10^3/uL (4.5-11.0)
[2019-04-06 16:06] LABS: INR 1.5 (0.9-1.3); Prothrombin Time 17.9 SECONDS (10.1-12.7)
--- NOTE | 2019-04-06 16:06 | ED.CHESTPAIN ---
HPI - Chest Pain General Chief Complaint: Chest Pain Stated Complaint: short of breath, chest pain Time Seen by Provider: 04/06/19 15:08 Source: patient Mode of arrival: Ambulatory Limitations: no limitations History of Present Illness HPI narrative: The patient is a 58-year-old male with history of coronary artery disease presenting at the request of his performance tester, he was seen in valve yesterday with the same pain. Diagnosed with pneumonia started on Levaquin took his 1st dose this morning. Called his performance tester who noticed that he had some shortness of breath on the phone and sent him back to the emergency department. He says the same pain as he has been feeling. He had 2-troponins yesterday cardiology was consulted and patient was discharged. MD complaint: chest pain Duration: intermittent Related Data Home Medications Medication Instructions Recorded Confirmed metformin [Glucophage XR] 500 mg PO BIDCC #60 tab 12/25/16 03/17/19 atorvastatin 40 mg PO BEDTIME 10/12/17 03/17/19 insulin aspart U-100 20 - 30 units SUB-Q TIDWM 10/12/17 03/17/19 insulin glargine 30 units SUB-Q BEDTIME 10/12/17 03/17/19 levothyroxine [Synthroid] 75 mcg PO DAILY 10/12/17 03/17/19 nitroglycerin [Nitrostat] 0.4 mg SUBLINGUAL Q5 MIN PRN PRN 10/12/17 03/17/19 lisinopril 10 mg tablet 10 mg PO DAILY 02/07/18 03/17/19 tamsulosin 0.4 mg capsule 0.4 mg PO QPM 02/07/18 03/17/19 cholecalciferol (vitamin D3) 5,000 unit PO DAILY 05/26/18 03/17/19 [Vitamin D3] furosemide 40 mg PO DAILY 05/26/18 03/17/19 hydrochlorothiazide 25 mg PO DAILY 05/26/18 03/17/19 metoprolol succinate [Toprol XL] 25 mg PO DAILY 05/26/18 03/17/19 ResMed AirCurve 10 BIPAP #1 ea 06/09/18 03/17/19 fenofibrate 160 mg tablet 160 mg PO DAILY 12/16/18 03/17/19 tramadol 50 mg tablet 50 mg PO Q6-8H PRN MDD 2 tabs 12/16/18 04/06/19 benztropine 1 mg PO BID 12/20/18 03/17/19 divalproex [Depakote] 1,500 mg PO BEDTIME 12/20/18 03/17/19 divalproex [Depakote] 500 mg PO QAM 12/20/18 03/17/19 omeprazole 20 mg PO DAILY 12/20/18 03/17/19 Xarelto 20 mg PO QPM 02/16/19 03/17/19 aspirin 81 mg PO DAILY 02/16/19 03/17/19 isosorbide mononitrate 60 mg PO DAILY 02/16/19 03/17/19 spironolactone 25 mg PO DAILY 02/16/19 03/17/19 gabapentin 300 mg capsule 600 mg PO BEDTIME cap 03/17/19 03/17/19 Previous Rx's Medication Instructions Recorded fluoxetine 40 mg capsule 80 mg PO DAILY #180 cap 05/31/18 vitamin E 600 unit capsule 600 unit PO DAILY #90 cap 12/16/18 ziprasidone HCl 80 mg capsule 80 mg PO QPM #90 cap 03/17/19 levofloxacin [Levaquin] 750 mg PO DAILY #7 tab 04/05/19 Allergies Allergy/AdvReac Type Severity Reaction Status Date / Time Penicillins [PENICILLINS] Allergy Severe Swelling Verified 03/17/19 08:03 of Lip/Tongue/Throat Review of Systems Review of Systems Narrative: GENERAL: Denies chills, fatigue, malaise, fever, sweats, travel HEENT: Denies sinus pain, ear pain, sore throat, difficulty swallowing, neck pain RESPIRATORY: Denies dyspnea, cough, wheezing, hemoptysis, sputum. CARDIOVASCULAR: See HPI GASTROINTESTINAL: Denies nausea, vomiting, abdominal pain, diarrhea, constipation, melena. : Denies dysuria, frequency, incontinence, hematuria, urinary retention, flank pain. MUSCULOSKELETAL: Denies weakness, joint pain, or bony pain SKIN: No rash, no erythema, no pruritus NEUROLOGIC: Denies weakness, dizziness, headache, numbness, change in speech, confusion PSYCHIATRIC: No concerning psychosocial issues. 12 point review of systems is negative except for those stated above and HPI Patient History Social History marital status: unmarried,single details: lives with his parents household members: family lives independently: Yes caregiver/support person: Yes housing: house pets and animals: Yes Smoking Status: Former smoker alcohol intake: never substance use type: does not use Smoking Status: Former smoker alcohol intake frequency: 0-2 drinks per day Substance Use Type: does not use Exam Initial Vital Signs Initial Vital Signs: Vital Signs Temperature 98.3 F 04/06/19 15:01 Pulse Rate 65 04/06/19 15:01 Respiratory Rate 22 04/06/19 15:01 Blood Pressure 173/73 H 04/06/19 15:01 Pulse Oximetry 100 04/06/19 15:01 GENERAL: Well-appearing, well-nourished and in no acute distress. HEENT: Head atraumatic,EOMI, pupils reactive, face symmetric CARDIOVASCULAR: Regular rate and rhythm without murmurs, rubs or gallops. RESPIRATORY: Breath sounds equal bilaterally, no wheezes rales or rhonchi. ABDOMEN: Soft, nontender. Normoactive bowel sounds all 4 quadrants. No guarding or rebound. EXTREMITIES: Normal range of motion, no clubbing or edema. Neurovascularly intact NEUROLOGICAL: Alert and oriented x4.Normal gait and speech. Cranial nerves II through XII grossly intact. SKIN: Warm, dry, no laceration, no petechiae, no rashes or lesions. Course Orders Ordered: ED Orders 04/06/19 15:04 XR chest 1V Stat EKG-12 Lead Stat 04/06/19 15:50 Complete Blood Count AUTO DIFF Stat Comprehensive Metabolic Panel Stat Lipase Stat Partial Thromboplastin Time Stat Prothrombin Time INR Stat Troponin & CK Cardiac Panel Stat Consultations Consultation #1: Parul, cardiology, noted that patient did call the office it was recommended that he go to the ER for evaluation at this time can follow up outpatient. Time: 17:30 Vital Signs Vital signs: Vital Signs - 8 hr 04/06/19 15:01 04/06/19 16:00 04/06/19 17:42 Temperature 98.3 F Pulse Rate 65 55 L 54 L Respiratory Rate 22 24 22 Blood Pressure 173/73 H Blood Pressure [Left Arm] 166/90 H Pulse Oximetry 100 92 92 MDM - Chest Pain Lab Data Attestation: I reviewed the patient's lab results. Result diagrams: 04/06/19 15:50 04/06/19 15:50 Labs: Lab Results 04/06/19 04/06/19 04/06/19 Range/Units 15:50 15:50 15:50 WBC 7.4 (4.5-11.0) X10^3/uL RBC 3.97 L (4.5-5.9) X10^6/uL Hgb 11.6 L (13.5-17.5) g/dL Hct 34.3 L (41-53) % MCV 86.6 (80-100) fL MCH 29.1 (26-34) PG MCHC 33.6 (30-36) % RDW 15.6 H (11.6-14.8) % Plt Count 156 (150-400) X10^3/uL Neut % (Auto) 69.9 (50-75) % Lymph % (Auto) 21.9 L (25-40) % Wharton % (Auto) 5.9 (3-14) % Eos % (Auto) 1.4 L (2-4) % Baso % (Auto) 0.9 (0-2) % Neut # (Auto) 5100 (0466-5220) /uL Lymph # (Auto) 1600 (3319-5957) /uL Wharton # (Auto) 400 (0-900) /uL Eos # (Auto) 100 (0-450) /uL Baso # (Auto) 100 (0-100) /uL PT 17.9 H (10.1-12.7) SECONDS INR 1.5 H (0.9-1.3) APTT 39 H D (26.4-36.2) SECONDS Sodium 138 (137-145) mmol/L Potassium 4.5 (3.4-5.1) mmol/L Chloride 105 (98-107) mmol/L Carbon Dioxide 26 (22-32) mmol/L BUN 18 (9-20) mg/dL Creatinine 1.00 (0.66-1.25) mg/dL Estimated GFR > 60.0 (>60) mL/min BUN/Creatinine Ratio 18.0 (6-22) Glucose 149 H (70-100) mg/dL Calcium 8.2 L (8.4-10.2) mg/dL Total Bilirubin 0.5 (0.2-1.3) mg/dL AST 20 (17-59) IU/L ALT 13 (<50) IU/L Alkaline Phosphatase 44 (38-126) U/L Total Creatine Kinase 128 (55-170) U/L CK-MB (CK-2) 1.35 (<2.37) ng/mL CK-MB (CK-2) Rel Index 1.1 L (1.5-5.0) % Troponin I < 0.012 (0.01-0.034) ng/mL Total Protein 6.4 (6.3-8.2) g/dL Albumin 3.6 (3.5-5.0) g/dL Globulin 2.8 (1.7-4.1) g/dL Albumin/Globulin Ratio 1.3 (1.0-2.8) Lipase 64 D (23-300) U/L Imaging Data Chest x-ray: Radiologist's Impression: PROCEDURE: XR CHEST 1V INDICATIONS: chest pain TECHNIQUE: One view of the chest was acquired. COMPARISON: [facility], CT, CT ANGIO CHEST PE PROTOCOL, 04/05/2019, 19:33. [facility], CR, XR CHEST 1V, 04/05/2019, 17:42. FINDINGS: Surgical changes and devices: Remote CABG Lungs and pleura: Fluffy consolidation, left lung. No pleural effusions or pneumothorax. Mediastinum: Mediastinal contours appear normal. Cardiomegaly. Bones and chest wall: No suspicious bony lesions. Overlying soft tissues appear unremarkable. IMPRESSION: Asymmetric unilateral pulmonary edema versus left-sided pneumonia. Recommend progress films Dictated by: Robin Goel M.D. on 04/06/2019 at 16:13 ECG Data Attestation: I personally reviewed and interpreted this ECG as follows: Prior ECG tracings: available for review Interpretation: Do sinus rhythm artifact noted rate 57 p.r. interval 146 QRS [address] changes MDM Narrative Medical decision making narrative: Patient has persistent left upper lobe pneumonia of blood work overall reassuring. I did discuss case with cardiology who did note that patient call their office and due to his shortness of breath over the phone they recommended he go to the ER for evaluation. They agree to continue Levaquin antibiotics and follow up outpatient. Discharge Plan Departure Patient Disposition: Home Clinical Impression: Pneumonia Qualifiers: Pneumonia type: due to unspecified organism Laterality: left Lung location: upper lobe of lung Qualified Code(s): J18.9 - Pneumonia, unspecified organism Discharge Date/Time: 04/06/19 17:43 Instructions: Pneumonia-Adult Activity Restrictions/Additional Instructions: *You have been diagnosed with pneumonia *What to do: At this time your chest pain and shortness of breath is likely caused from pneumonia on the left side. Please continue your antibiotics as prescribed *Continue to take medications as directed Finish Levaquin as prescribed yesterday *Follow up with your primary care provider in 2-3 days *Return to ER if you should have shortness of breath at rest fever not controlled dizziness confusion lightheadedness or any new, worsening or concerning symptoms Prescriptions: No Action lisinopril 10 mg tablet 10 mg PO DAILY RF: 0 tamsulosin 0.4 mg capsule 0.4 mg PO QPM RF: 0 fluoxetine 40 mg capsule 80 mg PO DAILY Qty: 180 RF: 3 ziprasidone HCl 80 mg capsule 80 mg PO QPM Qty: 90 RF: 3 gabapentin 300 mg capsule 600 mg PO BEDTIME RF: 0 fenofibrate 160 mg tablet 160 mg PO DAILY RF: 0 tramadol 50 mg tablet 50 mg PO Q6-8H MDD 2 tabs PRN (Reason: pain) RF: 0 vitamin E 600 unit capsule 600 unit PO DAILY Qty: 90 RF: 3 metformin [Glucophage XR] 500 MG tablet extended release 24 hr 500 mg PO BIDCC Qty: 60 RF: 0 nitroglycerin [Nitrostat] 0.4 mg Tablet, Sublingual 0.4 mg Sublingual Q5 MIN PRN PRN (Reason: Chest Pain) RF: 0 insulin glargine 100 unit/mL (3 mL) Insulin Pen 30 units Sub-Q BEDTIME RF: 0 atorvastatin 40 mg Tablet 40 mg PO BEDTIME RF: 0 levothyroxine [Synthroid] 75 mcg Tablet 75 mcg PO DAILY RF: 0 insulin aspart U-100 100 unit/mL Insulin Pen 20 - 30 units Sub-Q TIDWM RF: 0 aspirin 81 mg Tablet,Delayed Release (Dr/Ec) 81 mg PO DAILY RF: 0 spironolactone 25 mg Tablet 25 mg PO DAILY RF: 0 isosorbide mononitrate 60 mg Tablet Extended Release 24 Hr 60 mg PO DAILY RF: 0 Xarelto 20 mg Tablet 20 mg PO QPM RF: 0 furosemide 40 mg Tablet 40 mg PO DAILY RF: 0 hydrochlorothiazide 25 mg Tablet 25 mg PO DAILY RF: 0 cholecalciferol (vitamin D3) [Vitamin D3] 5,000 unit Tablet 5,000 unit PO DAILY RF: 0 metoprolol succinate [Toprol XL] 25 MG tablet extended release 24 hr 25 mg PO DAILY RF: 0 divalproex [Depakote] 500 mg Tablet,Delayed Release (Dr/Ec) 1,500 mg PO BEDTIME RF: 0 benztropine 1 mg Tablet 1 mg PO BID RF: 0 omeprazole 20 mg Capsule,Delayed Release(Dr/Ec) 20 mg PO DAILY RF: 0 divalproex [Depakote] 500 mg tablet,delayed release (DR/EC) 500 mg PO QAM RF: 0 levofloxacin [Levaquin] 750 mg tablet 750 mg PO DAILY Qty: 7 RF: 0 (DME) ResMed AirCurve 10 BIPAP Qty: 1 RF: 0 Referrals: Sandra Garland [Primary Care Provider] -
[2019-04-06 16:08] LABS: PTT Partial Thromboplastin Tim 39 SECONDS (26.4-36.2)
[2019-04-06 16:10] LABS: Alanine Aminotransferase 13 IU/L (<50); Albumin 3.6 g/dL (3.5-5.0); Albumin Globulin Ratio 1.3 (1.0-2.8); Alkaline Phosphatase 44 U/L (38-126); Aspartate Aminotransferase 20 IU/L (17-59); Bilirubin Total 0.5 mg/dL (0.2-1.3); Blood Urea Nitrogen 18 mg/dL (9-20); Calcium 8.2 mg/dL (8.4-10.2); Carbon Dioxide 26 mmol/L (22-32); Chloride 105 mmol/L (98-107); Creatine Kinase 128 U/L (55-170); Estimated Glomerular Filt Rate > 60.0 mL/min (>60); Globulin 2.8 g/dL (1.7-4.1); Glucose 149 mg/dL (70-100); HEMOLYSIS 38 (0-50); Lipase 64 U/L (23-300); Potassium 4.5 mmol/L (3.4-5.1); Sodium 138 mmol/L (137-145); Total Protein 6.4 g/dL (6.3-8.2)
[2019-04-06 16:21] LABS: Troponin I < 0.012 ng/mL (0.01-0.034)
[2019-04-06 16:25] LABS: CKMB % Relative Index 1.1 % (1.5-5.0); Creatine Kinase MB 1.35 ng/mL (<2.37)
[2019-04-06 17:42] VITALS: BP 166/90; PULSE 54; RESP 22; O2SAT 92
== END 2019-04-06 17:43 | disposition home or self-care (01) ==
PROVIDERS: Emergency Provider Emergency Medicine; PCP Family Medicine
DX: J18.9 Pneumonia, unspecified organism (principal)
CPT/HCPCS: 36415; 71045; 80053; 82550; 82553; 83690; 84484; 85025; 85610; 85730; 93005; 99284; 99285

== ENCOUNTER 2019-04-25 16:46 | Emergency (ER) | payer OTHER, SELFPAY ==
[2019-02-16 14:44] VITALS: BMI 39.5
[2019-04-25 16:46] VITALS: BP 161/85; PULSE 67; RESP 10; TEMP 36.4; O2SAT 96
--- NOTE | 2019-04-25 17:05 | ED.CHESTPAIN ---
HPI - Chest Pain <Maira VieyraGENE - Last Filed: 04/25/19 21:42> General Chief Complaint: Chest Pain Stated Complaint: Chest pain,SI Time Seen by Provider: 04/25/19 16:52 Source: patient and EMS Mode of arrival: EMS History of Present Illness HPI narrative: 58-year-old with male well known to the ED with a history of anxiety, auditory hallucinations, ACS, diabetes, schizoaffective disorder, who's well-known to the emergency department presents via EMS today complaining of a 10/10 constant substernal chest pressure with associated SOB over the past hour, he took 3 nitro without relief. Patient states the pain is worse when he moves, denies any alleviating factors. He states this occurred after he had an argument with his father convincing his father that he is not allowed to dry. He states he took his father's keys. He then started having chest pressure and suicidal thoughts. He states his plan was to get in the car and drive it off the [place]. Patient states he got into his car and started his car and then decided to call 911. He states he feels like he is having a bad anxiety attack . Patient states he does not have a safety plan and is voluntarily willing to be admitted inpatient. Patient denies any dizziness, cough, rhinorrhea, abdominal pain, nausea, vomiting, diarrhea, or other concerns. Related Data Home Medications Medication Instructions Recorded Confirmed metformin [Glucophage XR] 500 mg PO BIDCC #60 tab 12/25/16 04/25/19 atorvastatin 40 mg PO BEDTIME 10/12/17 04/25/19 insulin aspart U-100 20 - 30 units SUB-Q TIDWM 10/12/17 04/25/19 insulin glargine 30 units SUB-Q BEDTIME 10/12/17 04/25/19 levothyroxine [Synthroid] 75 mcg PO DAILY 10/12/17 04/25/19 nitroglycerin [Nitrostat] 0.4 mg SUBLINGUAL Q5 MIN PRN PRN 10/12/17 04/25/19 lisinopril 10 mg tablet 10 mg PO DAILY 02/07/18 04/25/19 tamsulosin 0.4 mg capsule 0.4 mg PO QAM 02/07/18 04/25/19 furosemide 40 mg PO DAILY 05/26/18 04/25/19 hydrochlorothiazide 25 mg PO DAILY 05/26/18 04/25/19 metoprolol succinate [Toprol XL] 25 mg PO DAILY 05/26/18 04/25/19 ResMed AirCurve 10 BIPAP #1 ea 06/09/18 04/25/19 fenofibrate 160 mg tablet 160 mg PO DAILY 12/16/18 04/25/19 tramadol 50 mg tablet 50 mg PO BID MDD 2 tabs 12/16/18 04/25/19 omeprazole 20 mg PO DAILY 12/20/18 04/25/19 Xarelto 20 mg PO QPM 02/16/19 04/25/19 aspirin 81 mg PO DAILY 02/16/19 04/25/19 isosorbide mononitrate 60 mg PO DAILY 02/16/19 04/25/19 spironolactone 25 mg PO DAILY 02/16/19 04/25/19 gabapentin 300 mg capsule 300 mg PO TID cap 03/17/19 04/25/19 biotin 5,000 mcg SUBLINGUAL DAILY 04/25/19 04/25/19 cholecalciferol (vitamin D3) 5,000 unit PO DAILY 04/25/19 04/25/19 [Vitamin D3] sennosides [senna] 8.6 mg PO DAILY 04/25/19 04/25/19 vitamin E 600 unit PO DAILY 04/25/19 04/25/19 ziprasidone HCl 80 mg PO BEDTIME 04/25/19 04/25/19 Previous Rx's Medication Instructions Recorded fluoxetine 40 mg capsule 80 mg PO DAILY #180 cap 04/17/19 divalproex 500 mg tablet,delayed 1,500 mg PO BEDTIME #360 tab 04/21/19 release Allergies Allergy/AdvReac Type Severity Reaction Status Date / Time Penicillins [PENICILLINS] Allergy Severe Swelling Verified 04/21/19 09:58 of Lip/Tongue/Throat Alluna Sleep AdvReac Severe Difficulty Uncoded 04/25/19 17:30 Swallowing Review of Systems <GENE Vidal - Last Filed: 04/25/19 21:42> Review of Systems Narrative: REVIEW OF SYSTEMS: GENERAL: Denies fever or chills. HENT: No head trauma, hearing loss or sore throat. EYES: No loss of vision, double vision, eye pain, or irritation. CARDIOVASCULAR: Reports chest pain, see HPI. RESPIRATORY: Reports shortness of breath, see HPI. GASTROINTESTINAL: No nausea, vomiting, diarrhea, or constipation. GENITOURINARY: No flank pain or dysuria. MUSCULOSKELETAL: No pain, weakness, or deformities. INTEGUMENTARY: No rash, lesions, or pruritus. NEURO: No numbness, tingling, memory loss, or confusion. PSYCH: Reports increased anxiety, see HPI. Patient History <GENE Vidal - Last Filed: 04/25/19 21:42> Medical History CAD (coronary artery disease) (Chronic) Chronic left shoulder pain (Acute) Diabetes type 2, controlled (Chronic) HTN (hypertension) (Chronic) Hyperlipidemia (Chronic) Obstructive sleep apnea of adult (Chronic) Pulmonary embolism (Acute) Schizoaffective disorder (Chronic) Surgical History Hx of CABG (Chronic) Family History Mother Coronary artery disease Father No problems noted. Social History marital status: unmarried,single details: lives with his parents household members: family lives independently: Yes caregiver/support person: Yes housing: house pets and animals: Yes Smoking Status: Former smoker (quit in 03/07/2008; smoked for 30 years) alcohol intake: never substance use type: does not use Smoking Status: Former smoker (quit in 03/07/2008; smoked for 30 years) alcohol intake frequency: 0-2 drinks per day Substance Use Type: does not use Exam <GENE Vidal - Last Filed: 04/25/19 21:42> Initial Vital Signs Initial Vital Signs: Vital Signs Temperature 97.6 F 04/25/19 16:46 Pulse Rate 67 04/25/19 16:46 Respiratory Rate 10 L 04/25/19 16:46 Blood Pressure 161/85 H 04/25/19 16:46 Pulse Oximetry 96 04/25/19 16:46 PHYSICAL EXAMINATION: GENERAL: Alert, and cooperative. Answers questions promptly and appropriately. Vital signs noted. HENT: Normocephalic, atraumatic. Ear canals patent. Oral mucosa is pink and moist. EYES: Conjunctiva pink, sclera white, no periorbital swelling. CHEST: Normal to inspection and without deformities. CARDIOVASCULAR: S1 and S2 sounds normal. Regular rate and rhythm, no murmurs, clicks, or bruits. No pedal edema. RESPIRATORY: Increased respiratory rate (20- appears to be related to anxiety) trachea midline, airway patent. No stridor, nasal flaring or accessory muscle use. Lungs are clear in all cleary without wheeze, rhonchi, or crackles. GASTROINTESTINAL: Bowel sounds normoactive. Abdomen is soft and non-tender. No organomegaly. MUSCULOSKELETAL: Normal gait and coordination. Equal tone and mass bilaterally. EXTREMITIES: CMS intact. Moves all extremities. SKIN: Warm, dry, soft, appropriate color for ethnicity. No lesions, rashes, or wounds. NEURO: Alert and Oriented X 3. Good coordination. No ataxia, or sensory deficits, or cognitive issues. PSYCH: Appropriate affect and mood. <Dick Hung MD - Last Filed: 04/26/19 06:33> Initial Vital Signs Initial Vital Signs: Vital Signs Temperature 97.6 F 04/25/19 16:46 Pulse Rate 67 04/25/19 16:46 Respiratory Rate 10 L 04/25/19 16:46 Blood Pressure 161/85 H 04/25/19 16:46 Pulse Oximetry 96 04/25/19 16:46 Scores <GENE Vidal - Last Filed: 04/25/19 21:42> HEART Score Heart Score history: Slightly Suspicious Heart Score EKG: Normal Heart Score Age: 45-64 years old Heart Score risk factors: 1-2 risk factors Heart Score troponin: < or = to normal limit Heart Score Total: 2 Wells' Criteria for PE Clinical signs and symptoms of DVT: No PE is #1 Dx or equally likely: No Heart rate > 100: No Immobilization at least 3 days or surg in previous 4 weeks: No History of PE or DVT: No Hemoptysis: No Malignancy w/Treatment within 6 months or palliative: No Wells' PE Score total: 0 Course <GENE Vidal - Last Filed: 04/25/19 21:42> Course Course Narrative: I spoke with Dr. Jovel who sees the patient regularly, she stated she was working on providing the patient with some lorazepam to take with these episodes of chest pain as he frequently has severe anxiety attacks. Patient was given lorazepam which decreased chest pain to 7/10 and resolved his complains of shortness of breath anxiety. Patient was given Toradol which further decreased his chest pain to 5/10, he continues to state that is worse with movement. Multiple psychiatric units were consulted to take patient, Records were faxed to [facility]. Report/patient was signed out to Dr. Hung, who continued the plan of care. Orders Ordered: Sodium Chloride (Normal Saline 0.9%) 1,000 mls @ 150 mls/hr IV CONT JOSE L Last Infusion: 04/26/19 00:08 Dose: 0 mls/hr Documented by: Admin: 04/25/19 17:21 Dose: 150 mls/hr Documented by: LUCRECIA Discontinued Medications Acetaminophen (Tylenol) 975 mg PO NOW ONE Stop: 04/25/19 22:54 Last Admin: 04/26/19 00:08 Dose: Not Given Documented by: LOGAN Ketorolac Tromethamine (Toradol) 30 mg IV NOW ONE Stop: 04/25/19 18:24 Last Admin: 04/25/19 18:42 Dose: 30 mg Documented by: MELODY Lorazepam (Ativan) 0.5 mg IV NOW ONE Stop: 04/25/19 17:06 Last Admin: 04/25/19 17:21 Dose: 0.5 mg Documented by: LUCRECIA Lorazepam (Ativan) 0.5 mg IV NOW ONE Stop: 04/25/19 18:24 Last Admin: 04/25/19 18:43 Dose: 0.5 mg Documented by: MELODY Lorazepam (Ativan) 0.5 mg IV NOW ONE Stop: 04/25/19 22:58 Last Admin: 04/25/19 23:05 Dose: 0.5 mg Documented by: LOGAN Consultations Consultation #1: Patient was staffed with Dr. Hung. Vital Signs Vital signs: Vital Signs - 8 hr 04/26/19 00:11 Pulse Rate 59 L Respiratory Rate 24 Blood Pressure [Left Arm] 132/76 Pulse Oximetry 98 <iDck Hung MD - Last Filed: 04/26/19 06:33> Orders Ordered: Sodium Chloride (Normal Saline 0.9%) 1,000 mls @ 150 mls/hr IV CONT JOSE L Last Infusion: 04/26/19 00:08 Dose: 0 mls/hr Documented by: Admin: 04/25/19 17:21 Dose: 150 mls/hr Documented by: LUCRECIA Discontinued Medications Acetaminophen (Tylenol) 975 mg PO NOW ONE Stop: 04/25/19 22:54 Last Admin: 04/26/19 00:08 Dose: Not Given Documented by: LOGAN Ketorolac Tromethamine (Toradol) 30 mg IV NOW ONE Stop: 04/25/19 18:24 Last Admin: 04/25/19 18:42 Dose: 30 mg Documented by: MELODY Lorazepam (Ativan) 0.5 mg IV NOW ONE Stop: 04/25/19 17:06 Last Admin: 04/25/19 17:21 Dose: 0.5 mg Documented by: LUCRECIA Lorazepam (Ativan) 0.5 mg IV NOW ONE Stop: 04/25/19 18:24 Last Admin: 04/25/19 18:43 Dose: 0.5 mg Documented by: MELODY Lorazepam (Ativan) 0.5 mg IV NOW ONE Stop: 04/25/19 22:58 Last Admin: 04/25/19 23:05 Dose: 0.5 mg Documented by: LOGAN Vital Signs Vital signs: Vital Signs - 8 hr 04/26/19 00:11 Pulse Rate 59 L Respiratory Rate 24 Blood Pressure [Left Arm] 132/76 Pulse Oximetry 98 MDM - Chest Pain <GENE Vidal - Last Filed: 04/25/19 21:42> Medical Records Data Attestation: I reviewed the patient's medical records. Lab Data Attestation: I reviewed the patient's lab results. Result diagrams: 04/25/19 17:09 04/25/19 17:09 Labs: Lab Results 04/25/19 04/25/19 04/25/19 Range/Units 17:09 17:09 17:09 WBC 9.6 (4.5-11.0) X10^3/uL RBC 3.74 L (4.5-5.9) X10^6/uL Hgb 10.8 L (13.5-17.5) g/dL Hct 31.9 L (41-53) % MCV 85.2 (80-100) fL MCH 28.8 (26-34) PG MCHC 33.7 (30-36) % RDW 15.3 H (11.6-14.8) % Plt Count 159 (150-400) X10^3/uL Neut % (Auto) 65.3 (50-75) % Lymph % (Auto) 24.4 L (25-40) % [place] % (Auto) 8.6 (3-14) % Eos % (Auto) 0.6 L (2-4) % Baso % (Auto) 1.1 (0-2) % Neut # (Auto) 6300 (7725-2662) /uL Lymph # (Auto) 2400 (4679-6978) /uL [place] # (Auto) 800 (0-900) /uL Eos # (Auto) 100 (0-450) /uL Baso # (Auto) 100 (0-100) /uL Sodium 137 (137-145) mmol/L Potassium 3.8 (3.4-5.1) mmol/L Chloride 103 (98-107) mmol/L Carbon Dioxide 27 (22-32) mmol/L BUN 14 (9-20) mg/dL Creatinine 1.00 (0.66-1.25) mg/dL Estimated GFR > 60.0 (>60) mL/min BUN/Creatinine Ratio 14.0 (6-22) Glucose 83 (70-100) mg/dL Calcium 9.0 (8.4-10.2) mg/dL Total Bilirubin 0.6 (0.2-1.3) mg/dL AST 18 (17-59) IU/L ALT 11 (<50) IU/L Alkaline Phosphatase 52 (38-126) U/L Total Creatine Kinase 206 H (55-170) U/L CK-MB (CK-2) 0.96 (<2.37) ng/mL CK-MB (CK-2) Rel Index 0.5 L (1.5-5.0) % Troponin I < 0.012 (0.01-0.034) ng/mL Total Protein 7.0 (6.3-8.2) g/dL Albumin 3.7 (3.5-5.0) g/dL Globulin 3.3 (1.7-4.1) g/dL Albumin/Globulin Ratio 1.1 (1.0-2.8) Lipase 33 (23-300) U/L Ethyl Alcohol < 10 ( - 10) mg/dL Imaging Data Chest x-ray: Radiologist's Impression: [address] [id number] XRay Report Signed Patient: Luis E Pierre RMR#: [id number] : 1Acct:[id number] Age/Sex: 58 / MDate of Service: 04/25/19 Loc: ED Accession Number: [id number] Procedure: XR chest 1V Ordering Provider: Maira Vieyra PROCEDURE: XR CHEST 1V INDICATIONS: Chest pain TECHNIQUE: One view of the chest was acquired. COMPARISON: [facility], , XR CHEST 1V, 04/06/2019, 15:08. FINDINGS: Surgical changes and devices: Median sternotomy wires. Overlying monitoring leads are present. Lungs and pleura: Patchy perihilar alveolar opacities are redemonstrated, slightly worse in the right perihilar region, persistent left upper lobe. Interstitium is not particularly thickened. No pleural effusions or pneumothorax. Low lung volumes. Mediastinum: Mediastinal contours appear normal. Heart size is accentuated, probably due to technique. Bones and chest wall: No suspicious bony lesions. Left a.c. joint debridement. Overlying soft tissues appear unremarkable. IMPRESSION: 1. Worsened appearance of persistent bilateral alveolar opacities suspicious for pneumonia, less likely edema. 2. Lower lung volumes compared to prior. 3. No pleural effusion. 4. No significant central venous congestion, though correlation with BNP is recommended Dictated by: Katia Llanos M.D. on 04/25/2019 at 18:17 Approved by: Katia Llanos M.D. on 04/25/2019 at 18:19 ECG Data Interpretation: EKG read by Dr. Hung. Sinus rhythm, rate 67, DE interval 153, QTC 448. no ST elevation or ST depression. [facility] Narrative Medical decision making narrative: 58-year-old male with a significant history of anxiety but also ACS. Patient reports his symptoms of chest pain, shortness of breath, anxiety and suicidal ideation started after an argument with his father. less likely cardiac due to unremarkable EKG, normal troponin, worsening chest pain with movement, and decreased chest pain, shortness of breath, and anxiety with administration of lorazepam. Less likely DVT due to lack of tachycardia or hypoxia, resolution of symptoms. Patient has a heart score of 2. Patient's is requesting SI for voluntary admission for suicidal ideation. I think this is appropriate as he had a clear plan and started execute this plan. Nurses have been working on placement for this patient. Patient was signed out to Dr. Hung for further evaluation. <Dick Hung MD - Last Filed: 04/26/19 06:33> Lab Data Labs: Lab Results 04/25/19 04/25/19 04/25/19 Range/Units 17:09 17:09 17:09 WBC 9.6 (4.5-11.0) X10^3/uL RBC 3.74 L (4.5-5.9) X10^6/uL Hgb 10.8 L (13.5-17.5) g/dL Hct 31.9 L (41-53) % MCV 85.2 (80-100) fL MCH 28.8 (26-34) PG MCHC 33.7 (30-36) % RDW 15.3 H (11.6-14.8) % Plt Count 159 (150-400) X10^3/uL Neut % (Auto) 65.3 (50-75) % Lymph % (Auto) 24.4 L (25-40) % [place] % (Auto) 8.6 (3-14) % Eos % (Auto) 0.6 L (2-4) % Baso % (Auto) 1.1 (0-2) % Neut # (Auto) 6300 (8371-4035) /uL Lymph # (Auto) 2400 (4016-1756) /uL [place] # (Auto) 800 (0-900) /uL Eos # (Auto) 100 (0-450) /uL Baso # (Auto) 100 (0-100) /uL Sodium 137 (137-145) mmol/L Potassium 3.8 (3.4-5.1) mmol/L Chloride 103 (98-107) mmol/L Carbon Dioxide 27 (22-32) mmol/L BUN 14 (9-20) mg/dL Creatinine 1.00 (0.66-1.25) mg/dL Estimated GFR > 60.0 (>60) mL/min BUN/Creatinine Ratio 14.0 (6-22) Glucose 83 (70-100) mg/dL Calcium 9.0 (8.4-10.2) mg/dL Total Bilirubin 0.6 (0.2-1.3) mg/dL AST 18 (17-59) IU/L ALT 11 (<50) IU/L Alkaline Phosphatase 52 (38-126) U/L Total Creatine Kinase 206 H (55-170) U/L CK-MB (CK-2) 0.96 (<2.37) ng/mL CK-MB (CK-2) Rel Index 0.5 L (1.5-5.0) % Troponin I < 0.012 (0.01-0.034) ng/mL Total Protein 7.0 (6.3-8.2) g/dL Albumin 3.7 (3.5-5.0) g/dL Globulin 3.3 (1.7-4.1) g/dL Albumin/Globulin Ratio 1.1 (1.0-2.8) Lipase 33 (23-300) U/L Ethyl Alcohol < 10 ( - 10) mg/dL MDM Narrative Medical decision making narrative: 06:30 am. The patient was initially evaluated by GENE Vieyra. I have assumed his care following her departure from her ER shift. We have reviewed his treatment, and care thus far. The patient was evaluated for chest discomfort, a common complaint for him. He was treated for anxiety. He had suicidal ideation prior to arrival, he also complains of auditory hallucinations. He is seen by Psychiatry, Dr. Jovel. The patient was deemed not to be acutely suicidal. However he seemed to be a candidate for voluntary admission. Evidence for made last night initiated voluntary admission. The patient on CPAP. The lack of the immediate availability of his CPAP unit hindered transfer. In the interim the patient was evaluated through the night here in the ER. He is awake this morning, after sleeping tonight and been managed for anxiety tonight. He says he is feeling much better. He is feel no thoughts of self-harm. He is not having pain. He is asking to go home. He says he is safe to himself. He will call for help or call 911 if the situation requires. I've asked him to contact his psychiatrist today to arrange follow-up. Discharge Plan Departure Patient Disposition: Home Clinical Impression: Anxiety, Suicidal ideation Instructions: DI for Anxiety -- Adult Activity Restrictions/Additional Instructions: Continue your current medications. Contact your psychiatrist, Dr. Jovel, to arrange follow-up. Return the ER for recurrent issues with stress, anxiety, or feelings of self-harm. Prescriptions: No Action lisinopril 10 mg tablet 10 mg PO DAILY RF: 0 tamsulosin 0.4 mg capsule 0.4 mg PO QAM RF: 0 gabapentin 300 mg capsule 300 mg PO TID RF: 0 fenofibrate 160 mg tablet 160 mg PO DAILY RF: 0 tramadol 50 mg tablet 50 mg PO BID MDD 2 tabs RF: 0 metformin [Glucophage XR] 500 MG tablet extended release 24 hr 500 mg PO BIDCC Qty: 60 RF: 0 fluoxetine 40 mg capsule 80 mg PO DAILY Qty: 180 RF: 3 divalproex [Depakote] 500 mg tablet,delayed release (DR/EC) 1,500 mg PO BEDTIME Qty: 360 RF: 0 nitroglycerin [Nitrostat] 0.4 mg Tablet, Sublingual 0.4 mg Sublingual Q5 MIN PRN PRN (Reason: Chest Pain) RF: 0 insulin glargine 100 unit/mL (3 mL) Insulin Pen 30 units Sub-Q BEDTIME RF: 0 atorvastatin 40 mg Tablet 40 mg PO BEDTIME RF: 0 levothyroxine [Synthroid] 75 mcg Tablet 75 mcg PO DAILY RF: 0 insulin aspart U-100 100 unit/mL Insulin Pen 20 - 30 units Sub-Q TIDWM RF: 0 aspirin 81 mg Tablet,Delayed Release (Dr/Ec) 81 mg PO DAILY RF: 0 spironolactone 25 mg Tablet 25 mg PO DAILY RF: 0 isosorbide mononitrate 60 mg Tablet Extended Release 24 Hr 60 mg PO DAILY RF: 0 Xarelto 20 mg Tablet 20 mg PO QPM RF: 0 sennosides [senna] 8.6 mg Tablet 8.6 mg PO DAILY RF: 0 vitamin E 600 unit Capsule 600 unit PO DAILY RF: 0 cholecalciferol (vitamin D3) [Vitamin D3] 5,000 unit Tablet 5,000 unit PO DAILY RF: 0 biotin 5,000 mcg Tablet, Sublingual 5,000 mcg SUBLINGUAL DAILY RF: 0 ziprasidone HCl 80 mg capsule 80 mg PO BEDTIME RF: 0 furosemide 40 mg Tablet 40 mg PO DAILY RF: 0 hydrochlorothiazide 25 mg Tablet 25 mg PO DAILY RF: 0 metoprolol succinate [Toprol XL] 25 MG tablet extended release 24 hr 25 mg PO DAILY RF: 0 omeprazole 20 mg Capsule,Delayed Release(Dr/Ec) 20 mg PO DAILY RF: 0 (DME) ResMed AirCurve 10 BIPAP Qty: 1 RF: 0 Referrals: Sandra Garland [Primary Care Provider] -
[2019-04-25 17:16] LABS: Add Manual Diff / Slide Review NO; Basophils Absolute Auto 100 /uL (0-100); Basophils Percent Auto 1.1 % (0-2); Eosinophils Absolute Auto 100 /uL (0-450); Eosinophils Percent Auto 0.6 % (2-4); Hematocrit 31.9 % (41-53); Hemoglobin 10.8 g/dL (13.5-17.5); Lymphocytes Absolute Auto 2400 /uL (1100-4500); Lymphocytes Percent Auto 24.4 % (25-40); Mean Corpuscular HGB Conc 33.7 % (30-36); Mean Corpuscular Hemoglobin 28.8 PG (26-34); Mean Corpuscular Volume 85.2 fL (80-100); Monocytes Absolute Auto 800 /uL (0-900); Monocytes Percent Auto 8.6 % (3-14); Neutrophils Absolute Auto 6300 /uL (1500-7000); Neutrophils Percent Auto 65.3 % (50-75); Platelet Count 159 X10^3/uL (150-400); Red Blood Cell Count 3.74 X10^6/uL (4.5-5.9); Red Cell Distribution Width 15.3 % (11.6-14.8); White Blood Cell Count 9.6 X10^3/uL (4.5-11.0)
[2019-04-25] MEDS: SODIUM CHLORIDE 0.9% 1,000 ML 150 ML IV (17:21)
[2019-04-25] MEDS: LORazepam 2 MG/ML INJ 0.5 MG IV ×3 (17:21→23:05)
[2019-04-25 17:30] LABS: Ethanol (ETOH) < 10 mg/dL
[2019-04-25 17:32] LABS: Alanine Aminotransferase 11 IU/L (<50); Albumin 3.7 g/dL (3.5-5.0); Albumin Globulin Ratio 1.1 (1.0-2.8); Alkaline Phosphatase 52 U/L (38-126); Aspartate Aminotransferase 18 IU/L (17-59); Bilirubin Total 0.6 mg/dL (0.2-1.3); Blood Urea Nitrogen 14 mg/dL (9-20); Carbon Dioxide 27 mmol/L (22-32); Chloride 103 mmol/L (98-107); Creatine Kinase 206 U/L (55-170); Estimated Glomerular Filt Rate > 60.0 mL/min (>60); Globulin 3.3 g/dL (1.7-4.1); Glucose 83 mg/dL (70-100); HEMOLYSIS < 15 (0-50); Lipase 33 U/L (23-300); Potassium 3.8 mmol/L (3.4-5.1); Sodium 137 mmol/L (137-145)
[2019-04-25 17:42] LABS: Troponin I < 0.012 ng/mL (0.01-0.034)
[2019-04-25 17:47] LABS: CKMB % Relative Index 0.5 % (1.5-5.0); Creatine Kinase MB 0.96 ng/mL (<2.37)
[2019-04-25 17:49] VITALS: BP 143/70; PULSE 63; RESP 20; O2SAT 94
[2019-04-25] MEDS: KETOROLAC 60 MG/2 ML VIAL 30 MG IV (18:42)
[2019-04-26 00:11] VITALS: BP 132/76; PULSE 59; RESP 24; O2SAT 98
--- NOTE | 2019-04-26 00:12 | PC.NURSE ---
pt given sandwiches and juice. I also updated the pt on what we are waiting on acceptance light. Erick Alfredo refused the pt due to the fact that he did not have his CPAP with him and has no one to bring it to the hospital.
[2019-04-26 06:42] VITALS: BP 168/84; PULSE 66; O2SAT 96
== END 2019-04-26 07:06 | disposition home or self-care (01) ==
PROVIDERS: Emergency Provider Nurse Practitioner; PCP Family Medicine
DX: F41.9 Anxiety disorder, unspecified (principal); R45.851 Suicidal ideations; R07.9 Chest pain, unspecified
CPT/HCPCS: 36415; 71045; 80053; 80320; 82550; 82553; 83690; 84484; 85025; 93005; 96361; 96374; 96375; 99285; J1885; J2060

== ENCOUNTER 2019-06-03 08:49 | Emergency (ER) | payer OTHER, SELFPAY ==
[2019-02-16 14:44] VITALS: BMI 39.5
--- NOTE | 2019-06-03 08:54 | DI.RAD.S_ITS ---
PROCEDURE: XR CHEST 1V INDICATIONS: chest pain TECHNIQUE: One view of the chest was acquired. COMPARISON: [facility], CR, XR CHEST 1V, 04/25/2019, 17:26. FINDINGS: Surgical changes and devices: Median sternotomy changes are present. Lungs and pleura: Prominent perihilar lung markings are evident. There are patchy areas of consolidation identified within the right lung. No large effusion or pneumothorax is evident. Mediastinum: Mediastinal contours appear normal. The heart is enlarged. Bones and chest wall: No suspicious bony lesions. Overlying soft tissues appear unremarkable. IMPRESSION: 1. Cardiomegaly with findings that suggest pulmonary edema. Please correlate clinically. 2. Right hilar pulmonary consolidation may represent atelectasis versus pneumonia. Aspiration may also have this appearance. Dictated by: Gold Carreon M.D. on 06/03/2019 at 8:22 Approved by: Gold Carreon M.D. on 06/03/2019 at 8:24
[2019-06-03 09:14] VITALS: BP 170/79; PULSE 68; RESP 16; TEMP 36.6; O2SAT 98
[2019-06-03 09:31] LABS: Add Manual Diff / Slide Review NO; Basophils Absolute Auto 0 /uL (0-100); Basophils Percent Auto 0.6 % (0-2); Eosinophils Absolute Auto 100 /uL (0-450); Hematocrit 34.5 % (41-53); Hemoglobin 11.3 g/dL (13.5-17.5); Lymphocytes Absolute Auto 1300 /uL (1100-4500); Lymphocytes Percent Auto 18.8 % (25-40); Mean Corpuscular HGB Conc 32.7 % (30-36); Mean Corpuscular Hemoglobin 27.6 PG (26-34); Mean Corpuscular Volume 84.5 fL (80-100); Monocytes Absolute Auto 500 /uL (0-900); Monocytes Percent Auto 7.2 % (3-14); Neutrophils Absolute Auto 4800 /uL (1500-7000); Neutrophils Percent Auto 72.4 % (50-75); Platelet Count 133 X10^3/uL (150-400); Red Blood Cell Count 4.09 X10^6/uL (4.5-5.9); Red Cell Distribution Width 16.4 % (11.6-14.8); White Blood Cell Count 6.7 X10^3/uL (4.5-11.0)
--- NOTE | 2019-06-03 09:31 | ED.CHESTPAIN ---
HPI - Chest Pain General Chief Complaint: Chest Pain Stated Complaint: severe chest pain Time Seen by Provider: 06/03/19 08:53 Source: patient Mode of arrival: Ambulatory Limitations: no limitations History of Present Illness HPI narrative: 58-year-old male coronary artery disease and 5 way bypass with most recent heart cath 5 years ago presents with 7/10 left anterior chest pressure which woke him from rest. He states it worsens with exertion and did not improve with his nitro. He has associated nausea and shortness of breath. He states that improves slightly with rest. He has been taking all his medications as prescribed and denies other symptoms such as cough runny nose, sore throat. He denies any lower extremity swelling, pain or erythema. 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 [facility] complaint: chest pain Onset (ago): hour(s) Duration: constant Onset: during rest Pain location: left chest Severity: moderate Severity scale (1-10): 7 Quality: aching and heaviness Pain radiation: none Relieving factors: rest Exacerbating factors: exertion Associated symptoms: nausea Treatments prior to arrival chest pain: aspirin and nitroglycerin Related Data Home Medications Medication Instructions Recorded Confirmed metformin [Glucophage XR] 500 mg PO BIDCC #60 tab 12/25/16 05/30/19 atorvastatin 40 mg PO BEDTIME 10/12/17 05/30/19 insulin aspart U-100 20 - 30 units SUB-Q TIDWM 10/12/17 05/30/19 insulin glargine 30 units SUB-Q BEDTIME 10/12/17 05/30/19 levothyroxine [Synthroid] 75 mcg PO DAILY 10/12/17 05/30/19 nitroglycerin [Nitrostat] 0.4 mg SUBLINGUAL Q5 MIN PRN PRN 10/12/17 05/30/19 lisinopril 10 mg tablet 10 mg PO DAILY 02/07/18 05/30/19 tamsulosin 0.4 mg capsule 0.4 mg PO QAM 02/07/18 05/30/19 furosemide 40 mg PO DAILY 05/26/18 05/30/19 hydrochlorothiazide 25 mg PO DAILY 05/26/18 05/30/19 metoprolol succinate [Toprol XL] 25 mg PO DAILY 05/26/18 05/30/19 ResMed AirCurve 10 BIPAP #1 ea 06/09/18 05/30/19 fenofibrate 160 mg tablet 160 mg PO DAILY 12/16/18 05/30/19 tramadol 50 mg tablet 50 mg PO BID MDD 2 tabs 12/16/18 05/30/19 omeprazole 20 mg PO DAILY 12/20/18 05/30/19 Xarelto 20 mg PO QPM 02/16/19 05/30/19 aspirin 81 mg PO DAILY 02/16/19 05/30/19 isosorbide mononitrate 60 mg PO DAILY 02/16/19 05/30/19 spironolactone 25 mg PO DAILY 02/16/19 05/30/19 gabapentin 300 mg capsule 300 mg PO TID cap 03/17/19 05/30/19 biotin 5,000 mcg SUBLINGUAL DAILY 04/25/19 05/30/19 cholecalciferol (vitamin D3) 5,000 unit PO DAILY 04/25/19 05/30/19 [Vitamin D3] sennosides [senna] 8.6 mg PO DAILY 04/25/19 05/30/19 vitamin E 600 unit PO DAILY 04/25/19 05/30/19 ziprasidone HCl 80 mg PO BEDTIME 04/25/19 05/30/19 Previous Rx's Medication Instructions Recorded fluoxetine 40 mg capsule 80 mg PO DAILY #180 cap 04/17/19 divalproex 500 mg tablet,delayed 1,500 mg PO BEDTIME #360 tab 04/21/19 release lorazepam 1 mg tablet 1 mg PO DAILY PRN #5 tab 04/28/19 Allergies Allergy/AdvReac Type Severity Reaction Status Date / Time Penicillins [PENICILLINS] Allergy Severe Swelling Verified 05/30/19 13:21 of Lip/Tongue/Throat Alluna Sleep AdvReac Severe Difficulty Uncoded 05/30/19 13:21 Swallowing Review of Systems Constitutional Constitutional: Denies chills, Denies fatigue, Denies fever(s), Denies frequent falls, Denies lethargy and Denies weakness Eyes Eyes: Denies change in vision, Denies eye discharge, Denies irritation and Denies loss of vision ENT Ears, Nose, Mouth, and Throat: Denies change in voice, Denies dizziness, Denies neck pain, Denies sore throat and Denies throat swelling Cardiovascular Cardiovascular: Reports chest pain, Denies irregular heart rhythm, Denies lightheadedness, Denies palpitations, Reports dyspnea, Denies dyspnea on exertion and Denies orthopnea Respiratory Respiratory: Denies cough, Reports dyspnea, Denies dyspnea on exertion and Denies wheezing Gastrointestinal Gastrointestinal: Denies abdominal pain, Denies change in bowel habits, Denies diarrhea, Denies nausea and Denies vomiting Genitourinary Genitourinary: Denies hematuria, Denies flank pain, Denies urinary incontinence and Denies urinary urgency Musculoskeletal Musculoskeletal: Denies back pain, Denies muscle weakness, Denies neck pain, Denies numbness and Denies tingling Integumentary/Breasts Skin/Breast: Denies pruritus, Denies erythema, Denies rash and Denies wounds Neurologic Neurologic: Denies behavioral changes, Denies confusion, Denies dizziness, Denies frequent falls, Denies loss of vision, Denies numbness, Denies tingling and Denies weakness Psychiatric Psychiatric: Denies anxiety, Denies behavioral changes, Denies confusion, Denies depression, Denies homicidal ideation and Denies suicidal ideation Endocrine Endocrine: Denies fatigue, Denies flushing and Denies palpitations Hematologic/Lymphatic Hematologic/Lymphatic: Denies easy bruising Allergic/Immunologic Allergic/Immunologic: Denies urticaria, Denies throat swelling and Denies wheezing Patient History Medical History CAD (coronary artery disease) (Chronic) Chronic left shoulder pain (Acute) Diabetes type 2, controlled (Chronic) HTN (hypertension) (Chronic) Hyperlipidemia (Chronic) Obstructive sleep apnea of adult (Chronic) Pulmonary embolism (Acute) Schizoaffective disorder (Chronic) Surgical History Hx of CABG (Chronic) Family History Mother Coronary artery disease Father No problems noted. Social History marital status: unmarried,single details: lives with his parents household members: family lives independently: Yes caregiver/support person: Yes housing: house pets and animals: Yes Smoking Status: Former smoker alcohol intake: never substance use type: does not use Smoking Status: Former smoker alcohol intake frequency: 0-2 drinks per day Substance Use Type: does not use Exam Narrative Exam Narrative: GENERAL: [58] year old patient appears stated age. Well-nourished, well-developed patient, in mild distress. Anxious HEAD: Atraumatic. Normocephalic. EYES: Pupils equal round and reactive. Extraocular motions intact. No scleral icterus. No injection or drainage. ENT: Nose without bleeding, purulent drainage. Throat without erythema, tonsillar hypertrophy or exudate. Airway patent. NECK: Trachea midline. Non tender CARDIOVASCULAR: Regular rate and rhythm without murmurs, gallops, or rubs. RESPIRATORY: Clear to auscultation. Breath sounds equal bilaterally. No wheezes, rales, or rhonchi. GASTROINTESTINAL: Abdomen soft, non-tender, nondistended. EXTREMITIES: No edema or joint tenderness. BACK: Nontender without deformity or crepitance. No flank tenderness. NEURO: AOx3. SKIN: No rash or erythema of visible areas Initial Vital Signs Initial Vital Signs: Vital Signs Temperature 97.8 F 06/03/19 09:14 Pulse Rate 68 06/03/19 09:14 Respiratory Rate 16 06/03/19 09:14 Blood Pressure 170/79 H 06/03/19 09:14 Pulse Oximetry 98 06/03/19 09:14 Course Orders Ordered: ED Orders 06/03/19 09:22 Complete Blood Count AUTO DIFF Stat Comprehensive Metabolic Panel Stat D Dimer Stat Lipase Stat Troponin & CK Cardiac Panel Stat 06/03/19 09:23 EKG-12 Lead Stat 06/03/19 09:41 EKG-12 Lead Routine 06/03/19 12:10 Troponin I Stat Discontinued Medications Aspirin (Aspirin Chew) 324 mg PO NOW ONE Stop: 06/03/19 08:54 Last Admin: 06/03/19 09:36 Dose: Not Given Documented by: LORI Sodium Chloride (Normal Saline 0.9%) 1,000 mls @ 150 mls/hr IV CONT JOSE L Last Infusion: 06/03/19 15:30 Dose: 0 mls/hr Documented by: Admin: 06/03/19 09:36 Dose: 150 mls/hr Documented by: IONAM Isosorbide Mononitrate (Imdur) 60 mg PO NOW ONE Stop: 06/03/19 13:45 Last Admin: 06/03/19 14:38 Dose: 60 mg Documented by: LORI Ketorolac Tromethamine (Toradol) 15 mg IV NOW ONE Stop: 06/03/19 14:34 Last Admin: 06/03/19 14:37 Dose: 15 mg Documented by: LORI Morphine Sulfate (Morphine) 4 mg IV NOW ONE Stop: 06/03/19 09:47 Last Admin: 06/03/19 10:00 Dose: 4 mg Documented by: LORI Nitroglycerin (Nitrostat) 0.4 mg SL [id number] PRN PRN Reason: Chest Pain Last Admin: 06/03/19 09:36 Dose: 0.4 mg Documented by: LORI Reevaluation(s) Reevaluation #1: no improvement with NG Reevaluation #2: pain from 7 to 5 after 1 nitro Time: 10:09 Consultations Consultation #1: call to cardio, recommends hospitalization and stress test with typical work up call to our hospitalist whom states we cannot keep patient given ongoing pain, no access to stress test or inpatient cardio, known abnormalities on recent stress etc. hospitalist at [facility] happy to accept. Manuel DUFF contacted and in agreement Vital Signs Vital signs: Vital Signs - 8 hr 06/03/19 10:46 06/03/19 11:20 06/03/19 12:20 Temperature 98.1 F Pulse Rate 62 61 61 Respiratory Rate 25 H 30 H Blood Pressure [Right Arm] 170/79 H 165/83 H 173/81 H Pulse Oximetry 95 94 94 06/03/19 15:11 Temperature Pulse Rate 65 Respiratory Rate 32 H Blood Pressure [Right Arm] 138/73 Pulse Oximetry 94 MDM - Chest Pain Lab Data Result diagrams: 06/03/19 09:22 06/03/19 09:22 Labs: Lab Results 06/03/19 06/03/19 06/03/19 Range/Units 09:22 09:22 09:22 WBC 6.7 (4.5-11.0) X10^3/uL RBC 4.09 L (4.5-5.9) X10^6/uL Hgb 11.3 L (13.5-17.5) g/dL Hct 34.5 L (41-53) % MCV 84.5 (80-100) fL MCH 27.6 (26-34) PG MCHC 32.7 (30-36) % RDW 16.4 H (11.6-14.8) % Plt Count 133 L (150-400) X10^3/uL Neut % (Auto) 72.4 (50-75) % Lymph % (Auto) 18.8 L (25-40) % [place] % (Auto) 7.2 (3-14) % Eos % (Auto) 1.0 L (2-4) % Baso % (Auto) 0.6 (0-2) % Neut # (Auto) 4800 (9335-5628) /uL Lymph # (Auto) 1300 (0798-3325) /uL [place] # (Auto) 500 (0-900) /uL Eos # (Auto) 100 (0-450) /uL Baso # (Auto) 0 (0-100) /uL D-Dimer 205 (<230) ng/mL Sodium 140 (137-145) mmol/L Potassium 4.2 (3.4-5.1) mmol/L Chloride 103 (98-107) mmol/L Carbon Dioxide 27 (22-32) mmol/L BUN 12 (9-20) mg/dL Creatinine 1.00 (0.66-1.25) mg/dL Estimated GFR > 60.0 (>60) mL/min BUN/Creatinine Ratio 12.0 (6-22) Glucose 306 H (70-100) mg/dL Calcium 8.8 (8.4-10.2) mg/dL Total Bilirubin 0.5 (0.2-1.3) mg/dL AST 15 L (17-59) IU/L ALT 13 (<50) IU/L Alkaline Phosphatase 62 (38-126) U/L Total Creatine Kinase 101 (55-170) U/L CK-MB (CK-2) 0.77 (<2.37) ng/mL CK-MB (CK-2) Rel Index 0.8 L (1.5-5.0) % Troponin I < 0.012 (0.01-0.034) ng/mL Total Protein 6.9 (6.3-8.2) g/dL Albumin 3.7 (3.5-5.0) g/dL Globulin 3.2 (1.7-4.1) g/dL Albumin/Globulin Ratio 1.2 (1.0-2.8) Lipase 34 (23-300) U/L 06/03/19 Range/Units 12:10 WBC (4.5-11.0) X10^3/uL RBC (4.5-5.9) X10^6/uL Hgb (13.5-17.5) g/dL Hct (41-53) % MCV (80-100) fL MCH (26-34) PG MCHC (30-36) % RDW (11.6-14.8) % Plt Count (150-400) X10^3/uL Neut % (Auto) (50-75) % Lymph % (Auto) (25-40) % [place] % (Auto) (3-14) % Eos % (Auto) (2-4) % Baso % (Auto) (0-2) % Neut # (Auto) (7803-7880) /uL Lymph # (Auto) (0799-4947) /uL [place] # (Auto) (0-900) /uL Eos # (Auto) (0-450) /uL Baso # (Auto) (0-100) /uL D-Dimer (<230) ng/mL Sodium (137-145) mmol/L Potassium (3.4-5.1) mmol/L Chloride (98-107) mmol/L Carbon Dioxide (22-32) mmol/L BUN (9-20) mg/dL Creatinine (0.66-1.25) mg/dL Estimated GFR (>60) mL/min BUN/Creatinine Ratio (6-22) Glucose (70-100) mg/dL Calcium (8.4-10.2) mg/dL Total Bilirubin (0.2-1.3) mg/dL AST (17-59) IU/L ALT (<50) IU/L Alkaline Phosphatase (38-126) U/L Total Creatine Kinase (55-170) U/L CK-MB (CK-2) (<2.37) ng/mL CK-MB (CK-2) Rel Index (1.5-5.0) % Troponin I < 0.012 (0.01-0.034) ng/mL Total Protein (6.3-8.2) g/dL Albumin (3.5-5.0) g/dL Globulin (1.7-4.1) g/dL Albumin/Globulin Ratio (1.0-2.8) Lipase (23-300) U/L Imaging Data Chest x-ray: Radiologist's Impression: [place] [id number] [place] [id number] XRay Report Signed Patient: Luis E Pierre RMR#: [id number] : 1Acct:[id number] Age/Sex: 58 / MDate of Service: 06/03/19 Loc: ED Accession Number: [id number] Procedure: XR chest 1V Ordering Provider: Gera Colindres D.O. PROCEDURE: XR CHEST 1V INDICATIONS: chest pain TECHNIQUE: One view of the chest was acquired. COMPARISON: [facility], CR, XR CHEST 1V, 04/25/2019, 17:26. FINDINGS: Surgical changes and devices: Median sternotomy changes are present. Lungs and pleura: Prominent perihilar lung markings are evident. There are patchy areas of consolidation identified within the right lung. No large effusion or pneumothorax is evident. Mediastinum: Mediastinal contours appear normal. The heart is enlarged. Bones and chest wall: No suspicious bony lesions. Overlying soft tissues appear unremarkable. IMPRESSION: 1. Cardiomegaly with findings that suggest pulmonary edema. Please correlate clinically. 2. Right hilar pulmonary consolidation may represent atelectasis versus pneumonia. Aspiration may also have this appearance. Dictated by: Gold Carreon M.D. on 06/03/2019 at 8:22 Approved by: Gold Carreon M.D. on 06/03/2019 at 8:24 ECG Data Attestation: I personally reviewed and interpreted this ECG as follows: Interpretation: EKG is normal sinus rhythm rate [63] and free of any signs of ischemia or ectopy. No ST segmental elevation or depression. No T wave inversions. Q-waves noted in inferior leads, seen on prior EKGs For EKG 2.: Unchanged EKG 3.: Unchanged Critical Care Time Critical Care Time Critical Care Time: Yes Total Critical Care Time: 30 Attestation: The high probability of a clinically significant, sudden or life threatening deterioration of the [CV] system(s) required my full and direct attention, intervention and personal management. The aggregate critical care time was [30] minutes. This time is in addition to time spent performing reported procedures but includes the following: [x] Data Review and interpretation [x] Patient assessment and monitoring of vital signs [x] Documentation []x Medication orders and management Discharge Plan Departure Patient Disposition: [facility] Clinical Impression: Chest pain, rule out acute myocardial infarction Discharge Date/Time: 06/03/19 15:31 Prescriptions: No Action lisinopril 10 mg tablet 10 mg PO DAILY RF: 0 tamsulosin 0.4 mg capsule 0.4 mg PO QAM RF: 0 gabapentin 300 mg capsule 300 mg PO TID RF: 0 fenofibrate 160 mg tablet 160 mg PO DAILY RF: 0 tramadol 50 mg tablet 50 mg PO BID MDD 2 tabs RF: 0 metformin [Glucophage XR] 500 MG tablet extended release 24 hr 500 mg PO BIDCC Qty: 60 RF: 0 fluoxetine 40 mg capsule 80 mg PO DAILY Qty: 180 RF: 3 divalproex [Depakote] 500 mg tablet,delayed release (DR/EC) 1,500 mg PO BEDTIME Qty: 360 RF: 0 lorazepam 1 mg tablet 1 mg PO DAILY PRN (Reason: anxiety) Qty: 5 RF: 0 nitroglycerin [Nitrostat] 0.4 mg Tablet, Sublingual 0.4 mg Sublingual Q5 MIN PRN PRN (Reason: Chest Pain) RF: 0 insulin glargine 100 unit/mL (3 mL) Insulin Pen 30 units Sub-Q BEDTIME RF: 0 atorvastatin 40 mg Tablet 40 mg PO BEDTIME RF: 0 levothyroxine [Synthroid] 75 mcg Tablet 75 mcg PO DAILY RF: 0 insulin aspart U-100 100 unit/mL Insulin Pen 20 - 30 units Sub-Q TIDWM RF: 0 aspirin 81 mg Tablet,Delayed Release (Dr/Ec) 81 mg PO DAILY RF: 0 spironolactone 25 mg Tablet 25 mg PO DAILY RF: 0 isosorbide mononitrate 60 mg Tablet Extended Release 24 Hr 60 mg PO DAILY RF: 0 Xarelto 20 mg Tablet 20 mg PO QPM RF: 0 sennosides [senna] 8.6 mg Tablet 8.6 mg PO DAILY RF: 0 vitamin E 600 unit Capsule 600 unit PO DAILY RF: 0 cholecalciferol (vitamin D3) [Vitamin D3] 5,000 unit Tablet 5,000 unit PO DAILY RF: 0 biotin 5,000 mcg Tablet, Sublingual 5,000 mcg SUBLINGUAL DAILY RF: 0 ziprasidone HCl 80 mg capsule 80 mg PO BEDTIME RF: 0 furosemide 40 mg Tablet 40 mg PO DAILY RF: 0 hydrochlorothiazide 25 mg Tablet 25 mg PO DAILY RF: 0 metoprolol succinate [Toprol XL] 25 MG tablet extended release 24 hr 25 mg PO DAILY RF: 0 omeprazole 20 mg Capsule,Delayed Release(Dr/Ec) 20 mg PO DAILY RF: 0 (DME) ResMed AirCurve 10 BIPAP Qty: 1 RF: 0 Referrals: Sandra Garland [Primary Care Provider] -
[2019-06-03 09:36] VITALS: BP 170/79
[2019-06-03] MEDS: NITROGLYCERIN 0.4 MG SL TAB SL (09:36)
[2019-06-03] MEDS: SODIUM CHLORIDE 0.9% 1,000 ML 150 ML IV (09:36)
[2019-06-03 09:41] LABS: Alanine Aminotransferase 13 IU/L (<50); Albumin 3.7 g/dL (3.5-5.0); Albumin Globulin Ratio 1.2 (1.0-2.8); Alkaline Phosphatase 62 U/L (38-126); Aspartate Aminotransferase 15 IU/L (17-59); Bilirubin Total 0.5 mg/dL (0.2-1.3); Blood Urea Nitrogen 12 mg/dL (9-20); Calcium 8.8 mg/dL (8.4-10.2); Carbon Dioxide 27 mmol/L (22-32); Chloride 103 mmol/L (98-107); Creatine Kinase 101 U/L (55-170); Estimated Glomerular Filt Rate > 60.0 mL/min (>60); Globulin 3.2 g/dL (1.7-4.1); Glucose 306 mg/dL (70-100); HEMOLYSIS < 15 (0-50); Lipase 34 U/L (23-300); Potassium 4.2 mmol/L (3.4-5.1); Sodium 140 mmol/L (137-145); Total Protein 6.9 g/dL (6.3-8.2)
[2019-06-03 09:52] LABS: Troponin I < 0.012 ng/mL (0.01-0.034)
[2019-06-03 09:56] LABS: CKMB % Relative Index 0.8 % (1.5-5.0); Creatine Kinase MB 0.77 ng/mL (<2.37)
[2019-06-03] MEDS: MORPHINE 4 MG/ML INJ IV (10:00)
[2019-06-03 10:15] LABS: D Dimer 205 ng/mL (<230)
[2019-06-03] MEDS: ONDANSETRON 4 MG/2 ML INJ (10:22)
[2019-06-03 10:46] VITALS: BP 170/79; PULSE 62; RESP 25; O2SAT 95
--- NOTE | 2019-06-03 10:55 | PC.NURSE ---
Pt pain decreased to a 5/10 after MS Pts pain now getting worse 8/10 pressure on left side chest. Pt states it makes it hard for him to get a deep breath due to the pressure on his chest
[2019-06-03 11:20] VITALS: BP 165/83; PULSE 61; PULSE 65; RESP 30; O2SAT 93; O2SAT 94
[2019-06-03 12:20] VITALS: BP 173/81; PULSE 61; TEMP 36.7; O2SAT 94
[2019-06-03 13:27] LABS: Troponin I < 0.012 ng/mL (0.01-0.034)
[2019-06-03] MEDS: KETOROLAC 60 MG/2 ML VIAL 15 MG IV (14:37)
[2019-06-03] MEDS: ISOSORBIDE MONONITRATE ER 30 MG TABLET 60 MG PO (14:38)
[2019-06-03 15:11] VITALS: BP 138/73; PULSE 65; RESP 32; O2SAT 94
== END 2019-06-03 15:31 | disposition short-term general hospital (02) ==
PROVIDERS: Emergency Provider Emergency Medicine; PCP Family Medicine
DX: R07.9 Chest pain, unspecified (principal); R06.00 Dyspnea, unspecified; I25.10 Atherosclerotic heart disease of native coronary artery without angina pectoris; I10 Essential (primary) hypertension
CPT/HCPCS: 36415; 71045; 80053; 82550; 82553; 83690; 84484; 85025; 85379; 93005; 96361; 96374; 96375; 99285; 99291; J1885; J2270; J2405

== ENCOUNTER 2019-06-06 11:03 | Emergency (ER) | payer OTHER, SELFPAY ==
[2019-02-16 14:44] VITALS: BMI 39.5
[2019-06-06] VITALS (7 sets, daily range): BP systolic 139–175; BP diastolic 70–88; PULSE 57–62; RESP 18–31; TEMP 36.8; O2SAT 94–98
--- NOTE | 2019-06-06 12:02 | ED_ITS ---
HPI - Chest Pain General Chief Complaint: Chest Pain Stated Complaint: Syncope Time Seen by Provider: 06/06/19 12:02 Source: patient and EMS Mode of arrival: EMS Limitations: no limitations History of Present Illness HPI narrative: 58-year-old gentleman who comes in with complaint of syncopal episode. Patient states that he went to urinate this morning felt dizzy and lightheaded and then woke up on the floor. He states that he did urinate on the floor. He states he also did vomit. He has little bit of mild headache. He denies any injuries. No neck pain. No back pain. He feels little lightheaded. He states he has chest pain which was before and continues to be present. He was actually admitted to [facility] for chest pain on the 03 of June and states he was discharged on the he states they told him it is not cardiac in nature. He states that they did not make any medication changes upon discharge. Patient states he does feel little short of breath. Patient states he continues to have some mild nausea. He did urinate he did not have any loss of fecal continence. He denies any recent diarrhea or constipation. No bright red blood or melena. Patient states he does not typically have syncopal episodes. Afterwards he did take 1 nitro sublingual which made him fee l sweaty. He called the ambulance and was transported here. Patient does have a cardiac history with CABG, he has history depression he states that he has suicidal thoughts but denies any plan or intent he just states that voices are talking about it recently and states that he does not feel that he is in danger he has no intent to act on his thoughts. Patient states he quit smoking tobacco in 2007, denies alcohol or illicit. Related Data Home Medications Medication Instructions Recorded Confirmed metformin [Glucophage XR] 500 mg PO BIDCC #60 tab 12/25/16 06/06/19 atorvastatin 40 mg PO BEDTIME 10/12/17 06/06/19 insulin aspart U-100 See Rx Instructions .ROUTE .COMPLEX 10/12/17 06/06/19 insulin glargine 30 units SUB-Q BEDTIME 10/12/17 06/06/19 levothyroxine [Synthroid] 75 mcg PO DAILY 10/12/17 06/06/19 nitroglycerin [Nitrostat] 0.4 mg SUBLINGUAL Q5 MIN PRN PRN 10/12/17 06/06/19 lisinopril 10 mg tablet 10 mg PO DAILY 02/07/18 06/06/19 furosemide 40 mg PO DAILY 05/26/18 06/06/19 hydrochlorothiazide 25 mg PO DAILY 05/26/18 06/06/19 metoprolol succinate [Toprol XL] 25 mg PO DAILY 05/26/18 06/06/19 ResMed AirCurve 10 BIPAP #1 ea 06/09/18 06/06/19 fenofibrate 160 mg tablet 160 mg PO DAILY 12/16/18 06/06/19 tramadol 50 mg tablet 50 mg PO BID MDD 2 tabs 12/16/18 06/06/19 omeprazole 20 mg PO DAILY 12/20/18 06/06/19 Xarelto 20 mg PO QPM 02/16/19 06/06/19 aspirin 81 mg PO DAILY 02/16/19 06/06/19 isosorbide mononitrate 60 mg PO DAILY 02/16/19 06/06/19 gabapentin 300 mg capsule 300 mg PO TID cap 03/17/19 06/06/19 cholecalciferol (vitamin D3) 5,000 unit PO DAILY 04/25/19 06/06/19 [Vitamin D3] ziprasidone HCl 80 mg PO BEDTIME 04/25/19 06/06/19 alprazolam 0.5 mg PO BID PRN 06/06/19 06/06/19 aripiprazole 45 mg PO DAILY 06/06/19 06/06/19 insulin NPH isoph U-100 human 60 unit SUBCUT QPM 06/06/19 06/06/19 [Novolin N NPH U-100 Insulin] Previous Rx's Medication Instructions Recorded fluoxetine 40 mg capsule 80 mg PO DAILY #180 cap 04/17/19 divalproex 500 mg tablet,delayed 1,500 mg PO BEDTIME #360 tab 04/21/19 release lorazepam 1 mg tablet 1 mg PO DAILY PRN #5 tab 04/28/19 doxycycline hyclate 100 mg PO BID #20 cap 06/06/19 Allergies Allergy/AdvReac Type Severity Reaction Status Date / Time Penicillins [PENICILLINS] Allergy Severe Swelling Verified 05/30/19 13:21 of Lip/Tongue/Throat Alluna Sleep AdvReac Severe Difficulty Uncoded 05/30/19 13:21 Swallowing Review of Systems Review of Systems ROS Unobtainable: All systems reviewed & are unremarkable except as noted in HPI and below Patient History Medical History CAD (coronary artery disease) (Chronic) Chronic left shoulder pain (Acute) Diabetes type 2, controlled (Chronic) HTN (hypertension) (Chronic) Hyperlipidemia (Chronic) Obstructive sleep apnea of adult (Chronic) Pulmonary embolism (Acute) Schizoaffective disorder (Chronic) Surgical History Hx of CABG (Chronic) Social History marital status: unmarried,single details: lives with his parents household members: family lives independently: Yes caregiver/support person: Yes housing: house pets and animals: Yes Smoking Status: Former smoker alcohol intake: never substance use type: does not use Smoking Status: Former smoker alcohol intake frequency: 0-2 drinks per day Substance Use Type: does not use Exam Narrative Exam Narrative: GEN: well nourished, well appearing male, alert and oriented x 3, patient appears to be in mild distress. HEENT: Atraumatic, pupils are equal round reactive to light, extraocular movements are intact, nares are clear. Throat is clear without any exudates, erythema, tonsillar enlargement or uvular deviation HEART: Regular rate and rhythm without murmur, clicks, rubs. Pulses are equal in upper and lower extremities, no edema bilateral lower extremities. 2+ pulses bilateral lower extremities. LUNGS:Lungs clear to auscultation, no wheezes, rales, crackles, chest moves symmetrically, no tachypnea accessory muscle use. ABD:bowel sounds normal, soft, non-tender, no guarding, rebound, rigidity, no masses noted, no hepatosplenomegaly, no bruit or pulsatile mass. :No CVA tenderness MSCL: Non-tender, no muscle atrophy, muscles strength 5/5 upper and lower extremities, full range of motion, normal gait NEURO:CN 2-12 intact, sensation normal SKIN: No rash, erythema or skin changes. Initial Vital Signs Initial Vital Signs: Vital Signs Temperature 98.3 F 06/06/19 11:09 Pulse Rate 60 06/06/19 11:09 Respiratory Rate 26 H 06/06/19 11:09 Blood Pressure 147/73 H 06/06/19 11:09 Pulse Oximetry 96 06/06/19 11:09 Course Orders Ordered: ED Orders 06/06/19 10:55 Complete Blood Count AUTO DIFF Stat Comprehensive Metabolic Panel Stat Partial Thromboplastin Time Stat Prothrombin Time INR Stat Thyroid Stimulating Hormone Stat Troponin & CK Cardiac Panel Stat 06/06/19 12:03 XR chest 1V Stat 06/06/19 12:55 EKG-12 Lead Stat 06/06/19 13:02 D Dimer Stat NT-proBNP (BNP-Adult 18+) Stat Troponin & CK Cardiac Panel Stat 06/06/19 13:15 Urine Drug Screen, Rapid Stat 06/06/19 13:48 CT angio chest PE protocol Stat Discontinued Medications Sodium Chloride (Normal Saline 0.9%) 1,000 mls @ 1,000 mls/hr IV BOLUS ONE Stop: 06/06/19 13:01 Last Admin: 06/06/19 12:38 Dose: 1,000 mls/hr Documented by: CVANCE Vital Signs Vital signs: Vital Signs - 8 hr 06/06/19 11:09 06/06/19 11:30 06/06/19 12:33 Temperature 98.3 F Pulse Rate 60 59 L 60 Respiratory Rate 26 H 22 26 H Blood Pressure [Right Arm] 147/73 H 145/71 H 139/73 Pulse Oximetry 96 94 98 06/06/19 13:40 06/06/19 13:42 06/06/19 13:44 Temperature Pulse Rate 57 L 61 62 Respiratory Rate 18 20 31 H Blood Pressure [Right Arm] 148/70 H 163/86 H 173/88 H Pulse Oximetry 97 06/06/19 15:38 Temperature Pulse Rate 62 Respiratory Rate 25 H Blood Pressure [Right Arm] 175/75 H Pulse Oximetry 96 MDM - Chest Pain Lab Data Attestation: I reviewed the patient's lab results. Result diagrams: 06/06/19 10:55 06/06/19 10:55 Labs: Lab Results 06/06/19 06/06/19 06/06/19 Range/Units 10:55 10:55 10:55 WBC 8.3 (4.5-11.0) X10^3/uL RBC 4.38 L (4.5-5.9) X10^6/uL Hgb 12.0 L (13.5-17.5) g/dL Hct 36.9 L (41-53) % MCV 84.1 (80-100) fL MCH 27.4 (26-34) PG MCHC 32.6 (30-36) % RDW 15.9 H (11.6-14.8) % Plt Count 201 (150-400) X10^3/uL Neut % (Auto) 71.7 (50-75) % Lymph % (Auto) 19.2 L (25-40) % Assumption % (Auto) 7.7 (3-14) % Eos % (Auto) 1.0 L (2-4) % Baso % (Auto) 0.4 (0-2) % Neut # (Auto) 5900 (2284-6924) /uL Lymph # (Auto) 1600 (2075-0684) /uL [place] # (Auto) 600 (0-900) /uL Eos # (Auto) 100 (0-450) /uL Baso # (Auto) 0 (0-100) /uL PT 14.0 H (10.1-12.7) SECONDS INR 1.2 (0.9-1.3) APTT 33 D (26.4-36.2) SECONDS D-Dimer (<230) ng/mL Sodium 139 (137-145) mmol/L Potassium 4.1 (3.4-5.1) mmol/L Chloride 100 (98-107) mmol/L Carbon Dioxide 33 H (22-32) mmol/L BUN 14 (9-20) mg/dL Creatinine 1.00 (0.66-1.25) mg/dL Estimated GFR > 60.0 (>60) mL/min BUN/Creatinine Ratio 14.0 (6-22) Glucose 205 H D (70-100) mg/dL Calcium 9.4 (8.4-10.2) mg/dL Total Bilirubin 0.5 (0.2-1.3) mg/dL AST 24 (17-59) IU/L ALT 12 (<50) IU/L Alkaline Phosphatase 61 (38-126) U/L Total Creatine Kinase 83 (55-170) U/L CK-MB (CK-2) TNP CK-MB (CK-2) Rel Index TNP Troponin I < 0.012 (0.01-0.034) ng/mL NT-Pro-B Natriuret Pep (<125) pg/mL Total Protein 7.6 (6.3-8.2) g/dL Albumin 4.0 (3.5-5.0) g/dL Globulin 3.6 (1.7-4.1) g/dL Albumin/Globulin Ratio 1.1 (1.0-2.8) TSH (0.47-4.68) uIU/mL U Opiates 300ng/mL cut (Negative) Ur Oxycodone Screen (Negative) Urine Methadone Screen (Negative) Ur Barbiturates Screen (Negative) U Tricyclic Antidepress (Negative) Ur Phencyclidine Scrn (Negative) Ur Amphetamines Screen (Negative) U Methamphetamines Scrn (Negative) Ur MDMA Scrn (Ecstasy) (Negative) U Benzodiazepines Scrn (Negative) Urine Cocaine Screen (Negative) U Marijuana (THC) Screen (Negative) 06/06/19 06/06/19 06/06/19 Range/Units 10:55 13:02 13:02 WBC (4.5-11.0) X10^3/uL RBC (4.5-5.9) X10^6/uL Hgb (13.5-17.5) g/dL Hct (41-53) % MCV (80-100) fL MCH (26-34) PG MCHC (30-36) % RDW (11.6-14.8) % Plt Count (150-400) X10^3/uL Neut % (Auto) (50-75) % Lymph % (Auto) (25-40) % Assumption % (Auto) (3-14) % Eos % (Auto) (2-4) % Baso % (Auto) (0-2) % Neut # (Auto) (6610-4656) /uL Lymph # (Auto) (5400-8423) /uL Assumption # (Auto) (0-900) /uL Eos # (Auto) (0-450) /uL Baso # (Auto) (0-100) /uL PT (10.1-12.7) SECONDS INR (0.9-1.3) APTT (26.4-36.2) SECONDS D-Dimer 327 H (<230) ng/mL Sodium (137-145) mmol/L Potassium (3.4-5.1) mmol/L Chloride (98-107) mmol/L Carbon Dioxide (22-32) mmol/L BUN (9-20) mg/dL Creatinine (0.66-1.25) mg/dL Estimated GFR (>60) mL/min BUN/Creatinine Ratio (6-22) Glucose (70-100) mg/dL Calcium (8.4-10.2) mg/dL Total Bilirubin (0.2-1.3) mg/dL AST (17-59) IU/L ALT (<50) IU/L Alkaline Phosphatase (38-126) U/L Total Creatine Kinase 81 (55-170) U/L CK-MB (CK-2) TNP CK-MB (CK-2) Rel Index TNP Troponin I < 0.012 (0.01-0.034) ng/mL NT-Pro-B Natriuret Pep 390 H (<125) pg/mL Total Protein (6.3-8.2) g/dL Albumin (3.5-5.0) g/dL Globulin (1.7-4.1) g/dL Albumin/Globulin Ratio (1.0-2.8) TSH 3.20 (0.47-4.68) uIU/mL U Opiates 300ng/mL cut (Negative) Ur Oxycodone Screen (Negative) Urine Methadone Screen (Negative) Ur Barbiturates Screen (Negative) U Tricyclic Antidepress (Negative) Ur Phencyclidine Scrn (Negative) Ur Amphetamines Screen (Negative) U Methamphetamines Scrn (Negative) Ur MDMA Scrn (Ecstasy) (Negative) U Benzodiazepines Scrn (Negative) Urine Cocaine Screen (Negative) U Marijuana (THC) Screen (Negative) 06/06/19 06/06/19 Range/Units 13:02 13:15 WBC (4.5-11.0) X10^3/uL RBC (4.5-5.9) X10^6/uL Hgb (13.5-17.5) g/dL Hct (41-53) % MCV (80-100) fL MCH (26-34) PG MCHC (30-36) % RDW (11.6-14.8) % Plt Count (150-400) X10^3/uL Neut % (Auto) (50-75) % Lymph % (Auto) (25-40) % Assumption % (Auto) (3-14) % Eos % (Auto) (2-4) % Baso % (Auto) (0-2) % Neut # (Auto) (8107-0768) /uL Lymph # (Auto) (5823-5810) /uL Assumption # (Auto) (0-900) /uL Eos # (Auto) (0-450) /uL Baso # (Auto) (0-100) /uL PT (10.1-12.7) SECONDS INR (0.9-1.3) APTT (26.4-36.2) SECONDS D-Dimer (<230) ng/mL Sodium (137-145) mmol/L Potassium (3.4-5.1) mmol/L Chloride (98-107) mmol/L Carbon Dioxide (22-32) mmol/L BUN (9-20) mg/dL Creatinine (0.66-1.25) mg/dL Estimated GFR (>60) mL/min BUN/Creatinine Ratio (6-22) Glucose (70-100) mg/dL Calcium (8.4-10.2) mg/dL Total Bilirubin (0.2-1.3) mg/dL AST (17-59) IU/L ALT (<50) IU/L Alkaline Phosphatase (38-126) U/L Total Creatine Kinase (55-170) U/L CK-MB (CK-2) CK-MB (CK-2) Rel Index Troponin I (0.01-0.034) ng/mL NT-Pro-B Natriuret Pep Cancelled (<125) pg/mL Total Protein (6.3-8.2) g/dL Albumin (3.5-5.0) g/dL Globulin (1.7-4.1) g/dL Albumin/Globulin Ratio (1.0-2.8) TSH (0.47-4.68) uIU/mL U Opiates 300ng/mL cut Positive H (Negative) Ur Oxycodone Screen Negative (Negative) Urine Methadone Screen Negative (Negative) Ur Barbiturates Screen Negative (Negative) U Tricyclic Antidepress Negative (Negative) Ur Phencyclidine Scrn Negative (Negative) Ur Amphetamines Screen Negative (Negative) U Methamphetamines Scrn Negative (Negative) Ur MDMA Scrn (Ecstasy) Negative (Negative) U Benzodiazepines Scrn Negative (Negative) Urine Cocaine Screen Negative (Negative) U Marijuana (THC) Screen Negative (Negative) Imaging Data Chest x-ray: Radiologist's Impression: [address] [address] XRay Report Signed Patient: Luis E Pierre RMR#: [id number] : 1Acct:[id number] Age/Sex: 58 / MDate of Service: 06/06/19 Loc: ED Accession Number: [id number] Procedure: XR chest 1V Ordering Provider: Kamilah Franks D.O. PROCEDURE: XR CHEST 1V INDICATIONS: syncope TECHNIQUE: One view of the chest was acquired. COMPARISON: [facility], , XR CHEST 1V, 06/03/2019, 8:50. FINDINGS: Surgical changes and devices: Median sternotomy wires are seen. Lungs and pleura: Mild pulmonary vascular congestion is seen. No definite focal infiltrate is seen on the current study. Overall lung aeration has improved compared to previous study. No pleural effusions or pneumothorax. Mediastinum: Mediastinal contours appear normal. Heart size is enlarged. Bones and chest wall: No suspicious bony lesions. Overlying soft tissues appear unremarkable. IMPRESSION: Cardiomegaly and mild congestion. No definite focal infiltrate. Dictated by: Filiberto Nino M.D. on 06/06/2019 at 12:26 Approved by: Filiberto Nino M.D. on 06/06/2019 at 12:27 ECG Data Attestation: I personally reviewed and interpreted this ECG as follows: Interpretation: Normal sinus rhythm rate of 60 OK 168 QRS of 94 and QTC of 502. No ST elevation depression noted. Patient has prior EKG 06/03/2019 which appears similar. EKG 2. Shows ventricular rate of 57 P are 170 QRS of 98 QTC of 496. No acute changes. Patient has Q-wave in 2 which is noted and prior. MDM Narrative Medical decision making narrative: Patient comes in with complaint of syncopal episode. Patient has chest pain which has similar the chest pain he had when he was at [facility] had evaluation and was felt was noncardiac. Patient's troponins x2 are negative. Single episode chest x-ray shows cardiomegaly propped some mild infiltrate. He has anemia which appears to be baseline with no leuk ocytosis, D-dimer is elevated in the 320 wanes and he does not meet age related cut offs so PE study was ordered. Electrolytes show CO2 of 33 but otherwise normal renal function electrolytes glucose of 205, negative troponin x2 normal TSH can BNP of 390. Patient does not have any clinical symptoms of fluid overload at this time. His blood pressures been appropriate the department. He does complain of suicidal ideation states chronic he does not feel that he is in danger he states that the voices do not feel threatening to him Um he has known schizoaffective disorder defers any additional psychiatric care for this at this time feels that it is well controlled. PE study shows pneumonia, no pulmonary emboli, possibly some pulmonary edema. Ambulatory pulse ox is normal. Patient is feeling better and comfortable to return home. Discharge Plan Departure Patient Disposition: Home Clinical Impression: Syncope Qualifiers: Encounter type: initial encounter Pneumonia Qualifiers: Pneumonia type: due to unspecified organism Laterality: bilateral Lung locati on: unspecified part of lung Qualified Code(s): J18.9 - Pneumonia, unspecified organism Discharge Date/Time: 06/06/19 15:44 Instructions: DI for Syncope in Adults (Fainting), Pneumonia-Adult Activity Restrictions/Additional Instructions: Follow-up with your physician in the next several days for recheck call for an appointment. Continue home medications as prescribed. Take antibiotics until gone. Return to the ER for fevers greater 100.4 F, recurrent episodes of passing out or lightheadedness, changes to your chest pain or shortness of breath, persistent vomiting, black or bloody stools, new swelling in her extremities, cough other new or concerning symptoms. Prescriptions: New doxycycline hyclate 100 mg capsule 100 mg PO BID Qty: 20 RF: 0 No Action lisinopril 10 mg tablet 10 mg PO DAILY RF: 0 gabapentin 300 mg capsule 300 mg PO TID RF: 0 fenofibrate 160 mg tablet 160 mg PO DAILY RF: 0 tramadol 50 mg tablet 50 mg PO BID MDD 2 tabs RF: 0 metformin [Glucophage XR] 500 MG tablet extended release 24 hr 500 mg PO BIDCC Qty: 60 RF: 0 fluoxetine 40 mg capsule 80 mg PO DAILY Qty: 180 RF: 3 divalproex [Depakote] 500 mg tablet,delayed release (DR/EC) 1,500 mg PO BEDTIME Qty: 360 RF: 0 lorazepam 1 mg tablet 1 mg PO DAILY PRN (Reason: anxiety) Qty: 5 RF: 0 nitroglycerin [Nitrostat] 0.4 mg Tablet, Sublingual 0.4 mg Sublingual Q5 MIN PRN PRN (Reason: Chest Pain) RF: 0 insulin glargine 100 unit/mL (3 mL) Insulin Pen 30 units Sub-Q BEDTIME RF: 0 atorvastatin 40 mg Tablet 40 mg PO BEDTIME RF: 0 levothyroxine [Synthroid] 75 mcg Tablet 75 mcg PO DAILY RF: 0 insulin aspart U-100 100 unit/mL Insulin Pen See Rx Instructions .ROUTE .COMPLEX RF: 0 aspirin 81 mg Tablet,Delayed Release (Dr/Ec) 81 mg PO DAILY RF: 0 isosorbide mononitrate 60 mg Tablet Extended Release 24 Hr 60 mg PO DAILY RF: 0 Xarelto 20 mg Tablet 20 mg PO QPM RF: 0 cholecalciferol (vitamin D3) [Vitamin D3] 5,000 unit Tablet 5,000 unit PO DAILY RF: 0 ziprasidone HCl 80 mg capsule 80 mg PO BEDTIME RF: 0 furosemide 40 mg Tablet 40 mg PO DAILY RF: 0 hydrochlorothiazide 25 mg Tablet 25 mg PO DAILY RF: 0 metoprolol succinate [Toprol XL] 25 MG tablet extended release 24 hr 25 mg PO DAILY RF: 0 omeprazole 20 mg Capsule,Delayed Release(Dr/Ec) 20 mg PO DAILY RF: 0 alprazolam 0.5 mg Tablet 0.5 mg PO BID PRN (Reason: Anxiety) RF: 0 aripiprazole 30 mg Tablet 45 mg PO DAILY RF: 0 Novolin N NPH U-100 Insulin 100 unit/mL Suspension 60 unit SUBCUT QPM RF: 0 (DME) ResMed AirCurve 10 BIPAP Qty: 1 RF: 0 Referrals: Sandra Garland [Primary Care Provider] -
[2019-06-06 12:12] LABS: Add Manual Diff / Slide Review NO; Basophils Absolute Auto 0 /uL (0-100); Basophils Percent Auto 0.4 % (0-2); Eosinophils Absolute Auto 100 /uL (0-450); Hematocrit 36.9 % (41-53); Lymphocytes Absolute Auto 1600 /uL (1100-4500); Lymphocytes Percent Auto 19.2 % (25-40); Mean Corpuscular HGB Conc 32.6 % (30-36); Mean Corpuscular Hemoglobin 27.4 PG (26-34); Mean Corpuscular Volume 84.1 fL (80-100); Monocytes Absolute Auto 600 /uL (0-900); Monocytes Percent Auto 7.7 % (3-14); Neutrophils Absolute Auto 5900 /uL (1500-7000); Neutrophils Percent Auto 71.7 % (50-75); Platelet Count 201 X10^3/uL (150-400); Red Blood Cell Count 4.38 X10^6/uL (4.5-5.9); Red Cell Distribution Width 15.9 % (11.6-14.8); White Blood Cell Count 8.3 X10^3/uL (4.5-11.0)
[2019-06-06 12:13] LABS: INR 1.2 (0.9-1.3)
[2019-06-06 12:16] LABS: PTT Partial Thromboplastin Tim 33 SECONDS (26.4-36.2)
[2019-06-06 12:28] LABS: Alanine Aminotransferase 12 IU/L (<50); Albumin Globulin Ratio 1.1 (1.0-2.8); Alkaline Phosphatase 61 U/L (38-126); Aspartate Aminotransferase 24 IU/L (17-59); Bilirubin Total 0.5 mg/dL (0.2-1.3); Blood Urea Nitrogen 14 mg/dL (9-20); Calcium 9.4 mg/dL (8.4-10.2); Carbon Dioxide 33 mmol/L (22-32); Chloride 100 mmol/L (98-107); Creatine Kinase 83 U/L (55-170); Estimated Glomerular Filt Rate > 60.0 mL/min (>60); Globulin 3.6 g/dL (1.7-4.1); Glucose 205 mg/dL (70-100); HEMOLYSIS 19 (0-50); Potassium 4.1 mmol/L (3.4-5.1); Sodium 139 mmol/L (137-145); Total Protein 7.6 g/dL (6.3-8.2)
[2019-06-06] MEDS: SODIUM CHLORIDE 0.9% 1,000 ML 1000 ML IV (12:38)
[2019-06-06 12:40] LABS: Troponin I < 0.012 ng/mL (0.01-0.034)
[2019-06-06 13:37] LABS: D Dimer 327 ng/mL (<230)
[2019-06-06 13:38] LABS: UR Morphine/Opiate cutoff 300 Positive (Negative); Ur Creatinine Normal (Normal); Ur Specific Gravity Normal (Normal); Urine Amphetamines Negative (Negative); Urine Barbiturates Negative (Negative); Urine Benzodiazepines Negative (Negative); Urine Cocaine Negative (Negative); Urine MDMA Negative (Negative); Urine Methadone Negative (Negative); Urine Methamphetamines Negative (Negative); Urine Oxycodone Negative (Negative); Urine Phencyclidine Negative (Negative); Urine Tetrahydrocannabinol Negative (Negative); Urine Tricyclic Antidepressant Negative (Negative); Urine pH Normal (Normal)
[2019-06-06 13:41] LABS: Creatine Kinase 81 U/L (55-170)
--- NOTE | 2019-06-06 13:48 | DI.CT.S_ITS ---
PROCEDURE: CT ANGIO CHEST PE PROTOCOL INDICATIONS: syncope, chest pain, recent hospitalization for cp. TECHNIQUE: After the administration of intravenous contrast, 2 mm thick sections acquired from the pulmonary apices to the posterior costophrenic angles. 3-dimensional maximum intensity projection (MIP) coronal and sagittal reformats were then acquired through the thorax. For radiation dose reduction, the following was used: automated exposure control, adjustment of mA and/or kV according to patient size. COMPARISON: [facility], CR, XR CHEST 1 VIEW, 06/04/2019, 11:15. [facility], CR, XR CHEST 1V, 06/06/2019, 12:14. [facility], CT, CT ANGIO CHEST PE PROTOCOL, 04/05/2019, 19:33. [facility], CT, CT ANGIO CHEST PE PROTOCOL, 08/10/2017, 21:50. FINDINGS: Image quality: Excellent. Pulmonary arteries: Pulmonary arteries are normal in size, and demonstrate no intraluminal filling defects to suggest central pulmonary embolism. Lungs and pleura: Lungs are abnormal with a patchy bilateral pneumonia pattern involving the upper, middle, and lower thirds of the lung parenchyma. There also appears to be a slight degree of superimposed pulmonary edema, likely cardiogenic in origin. No pleural effusions or pneumothorax. Central and peripheral airways are patent. Mediastinum: Heart size is globally enlarged, mildly, without pericardial effusion. No mediastinal or hilar adenopathy. Thoracic aorta is normal in caliber and enhancement. Esophagus is normal in caliber, without hiatal hernia. Bones and chest wall: No suspicious bony lesions. Ribs and thoracic spine appear intact throughout. Thyroid gland appears normal. No axillary or supraclavicular adenopathy. Abdomen: Visualized upper abdominal solid organs appear normal in the early arterial phase of enhancement. IMPRESSION: Patchy bilateral pneumonia with underlying mild pulmonary edema and cardiomegaly to the degree that congestive heart failure likely superimposed. No pulmonary embolus seen. Dictated by: Daryl Coffman M.D. on 06/06/2019 at 14:37 Approved by: Daryl Coffman M.D. on 06/06/2019 at 14:42
[2019-06-06 13:54] LABS: NT-proBNP (BNP-Adult 18+) 390 pg/mL (<125); Troponin I < 0.012 ng/mL (0.01-0.034)
--- NOTE | 2019-06-06 15:31 | PC.NURSE ---
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 ambulated safely. Patients O2 stats were 94 while walking around the halls. Pt. is back in bed. notified.
== END 2019-06-06 15:44 | disposition home or self-care (01) ==
PROVIDERS: Emergency Provider Emergency Medicine; PCP Family Medicine
DX: R55 Syncope and collapse (principal); J18.9 Pneumonia, unspecified organism; R07.9 Chest pain, unspecified; D64.9 Anemia, unspecified
CPT/HCPCS: 36415; 71045; 71275; 80053; 80305; 82550; 83880; 84443; 84484; 85025; 85379; 85610; 85730; 93005; 99284; Q9967

== ENCOUNTER 2019-06-25 12:41 | Emergency (ER) | payer OTHER, SELFPAY ==
[2019-02-16 14:44] VITALS: BMI 39.5
[2019-06-25 12:56] VITALS: BP 163/57; PULSE 63; RESP 24; TEMP 36.4; O2SAT 98
--- NOTE | 2019-06-25 13:02 | DI.RAD.S_ITS ---
PROCEDURE: XR CHEST 1V INDICATIONS: chest pain TECHNIQUE: One view of the chest was acquired. COMPARISON: [facility], CT, CT ANGIO CHEST PE PROTOCOL, 06/06/2019, 14:12. [facility], CR, XR CHEST 1V, 06/06/2019, 12:14. [facility], CR, XR CHEST 1 VIEW, 06/04/2019, 11:15. [facility], CR, XR CHEST 1V, 06/03/2019, 8:50. FINDINGS: Surgical changes and devices: Post CABG changes are seen. Lungs and pleura: Interstitial prominence is seen throughout. No focal infiltrates are seen. No pleural effusions or pneumothorax. Mediastinum: Mediastinal contours appear normal. Heart size is moderately enlarged. Bones and chest wall: No suspicious bony lesions. Overlying soft tissues appear unremarkable. IMPRESSION: Cardiomegaly and interstitial prominence. Please correlate with patient presentation, physical examination findings, and laboratory values for congestive heart failure. Post CABG changes are seen. Dictated by: David Gonzalez M.D. on 06/25/2019 at 12:58 Approved by: David Gonzalez M.D. on 06/25/2019 at 12:59
[2019-06-25 13:26] LABS: INR 1.3 (0.9-1.3); Prothrombin Time 14.8 SECONDS (10.1-12.7)
[2019-06-25 13:29] LABS: Add Manual Diff / Slide Review NO; Basophils Absolute Auto 100 /uL (0-100); Eosinophils Absolute Auto 100 /uL (0-450); Eosinophils Percent Auto 1.6 % (2-4); Hematocrit 31.9 % (41-53); Hemoglobin 10.4 g/dL (13.5-17.5); Lymphocytes Absolute Auto 1700 /uL (1100-4500); Lymphocytes Percent Auto 24.6 % (25-40); Mean Corpuscular HGB Conc 32.7 % (30-36); Mean Corpuscular Hemoglobin 27.1 PG (26-34); Mean Corpuscular Volume 82.8 fL (80-100); Monocytes Absolute Auto 500 /uL (0-900); Monocytes Percent Auto 7.9 % (3-14); Neutrophils Absolute Auto 4400 /uL (1500-7000); Neutrophils Percent Auto 64.9 % (50-75); PTT Partial Thromboplastin Tim 34 SECONDS (26.4-36.2); Platelet Count 185 X10^3/uL (150-400); Red Blood Cell Count 3.85 X10^6/uL (4.5-5.9); Red Cell Distribution Width 16.2 % (11.6-14.8); White Blood Cell Count 6.7 X10^3/uL (4.5-11.0)
[2019-06-25] MEDS: ONDANSETRON 4 MG/2 ML INJ IV (13:30)
[2019-06-25 13:32] LABS: Alanine Aminotransferase 13 IU/L (<50); Albumin 3.7 g/dL (3.5-5.0); Alkaline Phosphatase 54 U/L (38-126); BUN Creatinine Ratio 15.7 (6-22); Bilirubin Total 0.4 mg/dL (0.2-1.3); Blood Urea Nitrogen 14 mg/dL (9-20); Calcium 8.9 mg/dL (8.4-10.2); Carbon Dioxide 25 mmol/L (22-32); Chloride 105 mmol/L (98-107); Creatine Kinase 133 U/L (55-170); Estimated Glomerular Filt Rate > 60.0 mL/min (>60); Globulin 3.6 g/dL (1.7-4.1); Glucose 142 mg/dL (70-100); HEMOLYSIS < 15 (0-50); Lipase 36 U/L (23-300); Magnesium 1.9 mg/dL (1.6-2.3); Potassium 4.2 mmol/L (3.4-5.1); Sodium 136 mmol/L (137-145); Total Protein 7.3 g/dL (6.3-8.2)
[2019-06-25 13:41] LABS: NT-proBNP (BNP-Adult 18+) 840 pg/mL (<125)
[2019-06-25 13:44] LABS: Troponin I < 0.012 ng/mL (0.01-0.034)
[2019-06-25 13:47] LABS: CKMB % Relative Index 0.7 % (1.5-5.0); Creatine Kinase MB 0.98 ng/mL (<2.37)
[2019-06-25 13:56] LABS: Aspartate Aminotransferase 20 IU/L (17-59)
[2019-06-25 14:01] LABS: Influenza A - CEPHEID Flu A NEGATIVE (NEGATIVE); Influenza B - CEPHEID Flu B NEGATIVE (NEGATIVE)
--- NOTE | 2019-06-25 14:04 | ED.CHESTPAIN ---
HPI - Chest Pain <Ulices Carrillo MD - Last Filed: 06/30/19 17:52> General Chief Complaint: Chest Pain Stated Complaint: bad headache and stomach ache, chest pains Time Seen by Provider: 06/25/19 14:03 Source: patient Mode of arrival: Ambulatory Limitations: no limitations History of Present Illness HPI narrative: HPI: The patient is a 59-year-old male who presents to the emergency department with chest pain in the left side that feels like a heavy weight as though someone is sitting on top of him. He states that earlier today he took 3 nitroglycerin without relief and then he took is lorazepam because he thought maybe it was an anxiety reaction. He had no relief from either medications. He woke up with the pain and discomfort. He complains that he has been having a mild shortness of breath with a dry cough on productive of any sputum. He has been having nausea and vomiting x2 since he was here in the emergency department and 3 times at home. He denies any fall or injury. He states that he is scheduled to have a cardiac catheterization on June 28. He states that he quit smoking cigarettes in 2007 when he had his massive heart attack. He has had coronary artery bypass graft surgery x5. He admits to a history of COPD previous myocardial infarction congestive heart failure hypertension and diabetes mellitus. He denies a history of asthma stroke or seizures. He denies any fever chills or sweats but states that he feels cold all of the time he has a mild headache without any change in vision or diplopia. He has been dizzy and lightheaded without palpitations. His cough is nonproductive but any sputum. He has had mild abdominal cramps in the left lower quadrant with diarrhea nausea and vomiting but no melena or hematochezia. He denies any other urinary symptoms. Related Data Home Medications Medication Instructions Recorded Confirmed metformin [Glucophage XR] 500 mg PO BIDCC #60 tab 12/25/16 06/06/19 atorvastatin 40 mg PO BEDTIME 10/12/17 06/06/19 insulin aspart U-100 See Rx Instructions .ROUTE .COMPLEX 10/12/17 06/06/19 insulin glargine 30 units SUB-Q BEDTIME 10/12/17 06/06/19 levothyroxine [Synthroid] 75 mcg PO DAILY 10/12/17 06/06/19 nitroglycerin [Nitrostat] 0.4 mg SUBLINGUAL Q5 MIN PRN PRN 10/12/17 06/06/19 lisinopril 10 mg tablet 10 mg PO DAILY 02/07/18 06/06/19 furosemide 40 mg PO DAILY 05/26/18 06/06/19 hydrochlorothiazide 25 mg PO DAILY 05/26/18 06/06/19 metoprolol succinate [Toprol XL] 25 mg PO DAILY 05/26/18 06/06/19 ResMed AirCurve 10 BIPAP #1 ea 06/09/18 06/06/19 fenofibrate 160 mg tablet 160 mg PO DAILY 12/16/18 06/06/19 tramadol 50 mg tablet 50 mg PO BID MDD 2 tabs 12/16/18 06/06/19 omeprazole 20 mg PO DAILY 12/20/18 06/06/19 Xarelto 20 mg PO QPM 02/16/19 06/06/19 aspirin 81 mg PO DAILY 02/16/19 06/06/19 isosorbide mononitrate 60 mg PO DAILY 02/16/19 06/06/19 gabapentin 300 mg capsule 300 mg PO TID cap 03/17/19 06/06/19 cholecalciferol (vitamin D3) 5,000 unit PO DAILY 04/25/19 06/06/19 [Vitamin D3] ziprasidone HCl 80 mg PO BEDTIME 04/25/19 06/06/19 alprazolam 0.5 mg PO BID PRN 06/06/19 06/06/19 aripiprazole 45 mg PO DAILY 06/06/19 06/06/19 insulin NPH isoph U-100 human 60 unit SUBCUT QPM 06/06/19 06/06/19 [Novolin N NPH U-100 Insulin] Previous Rx's Medication Instructions Recorded fluoxetine 40 mg capsule 80 mg PO DAILY #180 cap 04/17/19 divalproex 500 mg tablet,delayed 1,500 mg PO BEDTIME #360 tab 04/21/19 release doxycycline hyclate 100 mg PO BID #20 cap 06/06/19 lorazepam 1 mg tablet 1 mg PO DAILY PRN #10 tab 06/30/19 Allergies Allergy/AdvReac Type Severity Reaction Status Date / Time Penicillins [PENICILLINS] Allergy Severe Swelling Verified 06/25/19 13:00 of Lip/Tongue/Throat Alluna Sleep AdvReac Severe Difficulty Uncoded 05/30/19 13:21 Swallowing Review of Systems <Ulices Carrillo MD - Last Filed: 06/30/19 17:52> Review of Systems Narrative: Review of systems were all negative except for those mentioned in the history of present illness. Patient History <Ulices Carrillo MD - Last Filed: 06/30/19 17:52> Medical History CAD (coronary artery disease) (Chronic) Chronic left shoulder pain (Acute) Diabetes type 2, controlled (Chronic) HTN (hypertension) (Chronic) Hyperlipidemia (Chronic) Obstructive sleep apnea of adult (Chronic) Pulmonary embolism (Acute) Schizoaffective disorder (Chronic) Surgical History Hx of CABG (Chronic) Family History Mother Coronary artery disease Father No problems noted. Social History marital status: unmarried,single details: lives with his parents household members: family lives independently: Yes caregiver/support person: Yes housing: house pets and animals: Yes Smoking Status: Former smoker alcohol intake: never substance use type: does not use Smoking Status: Former smoker alcohol intake frequency: 0-2 drinks per day Substance Use Type: does not use Exam <Ulices Carrillo MD - Last Filed: 06/30/19 17:52> Narrative Exam Narrative: PHYSICAL EXAM: CONSTITUTIONAL: Awake, Alert, Oriented, Coherent, Cooperative in NAD. Does not appear toxic or ill. The patient is obese and appears to have a flat [id number] affect. HEAD: AT/NC EENT: PERRL, FROM of eyes, no discharge, Oral mucosa is moist and pink, posterior pharynx is without erythema or exudate. NECK: Supple, no obvious JVD, Trachea is midline without stridor, no palpable LN or masses. SPINE: No gross deformity, no palpable tenderness of the cervical, thoracic, lumbar or sacral spine. No CVA tenderness. THORAX: No deformity, retractions, chest wall tenderness. LUNGS: A few inspiratory crackles in both bases of the lungs otherwise breath sounds are symmetrical without any respiratory distress. HEART: Normal heart tones, regular rhythm and rate without murmur. ABDOMEN: Soft, normal bowel sounds , minimal tenderness in the left lower quadrant without guarding, rebound, rigidity or palpable mass. LYMPHATIC: no palpable lymph nodes EXTREMITIES: Trace edema without cyanosis or deformity. There is no significant calf tenderness. SKIN: No rash, bruising, petechiae or purpura. NEURO: Awake, alert, oriented, conversive, cranial nerves II-XII are symmetrical and normal, moves all 4 extremities and is ambulatory Initial Vital Signs Initial Vital Signs: Vital Signs Temperature 97.6 F 06/25/19 12:56 Pulse Rate 63 06/25/19 12:56 Respiratory Rate 24 06/25/19 12:56 Blood Pressure 163/57 H 06/25/19 12:56 Pulse Oximetry 98 06/25/19 12:56 <Ramesh Jimenez DO - Last Filed: 06/26/19 00:55> Initial Vital Signs Initial Vital Signs: Vital Signs Temperature 97.6 F 06/25/19 12:56 Pulse Rate 63 06/25/19 12:56 Respiratory Rate 24 06/25/19 12:56 Blood Pressure 163/57 H 06/25/19 12:56 Pulse Oximetry 98 06/25/19 12:56 Course <Ulices Carrillo MD - Last Filed: 06/30/19 17:52> Course Course Narrative: 1626 the patient's chest x-ray per the radiologist shows cardiomegaly with prominence of the interstitial vascularity consistent with pulmonary edema and congestive heart failure. Correlate clinically. The patient's proBNP is 840. He is influenza a and B negative. Troponin is 0.012. 1750; the patient's repeat troponin is 0.012. He has been given 1 in of nitropaste and a repeat dose of morphine sulfate 4 mg. he states that he is scheduled that [facility] on June 28 to have a cardiac catheterization. I will call and discussed the patient with the tapper shank Dr. Marks. 183 I discussed the patient with Dr. Marks, who states that the patient with no acute diagnostic changes on his EKG and 2 normal troponins is low probability that this is cardiac in nature. He recommends that the patient be admitted for a stress test at [facility] before transferring anywhere else. The patient is a [facility] patient and regulates transfers. 1847 the patient continues to complain of chest pain. On reexamination the patient's lungs are clear heart regular rhythm and rate and he has no chest wall pain. He continues to deny any indigestion or heartburn. He will be given a GI cocktail as recommended by Dr. Marks. Dr. Evangelista does not feel that the patient needs to be transferred to [facility] with a normal EKG and 2 normal troponins. The patient states that his last stress test was over a year ago performed here. Dr. Marks feels that the patient should be admitted here and a repeat stress test obtained on the patient. The patient states that his primary care physician is Dr. Garland at [facility] [address] in [place]. The patient states that he is scheduled to have a cardiac catheterization with Dr. García on June 28. Dr. Marks states that the patient does not need to be transferred at this time to [facility] with 2 normal troponins and no acute diagnostic ST segment changes on the EKG. He recommends that the patient be admitted here at [facility] and to have a stress test performed tomorrow. I will call the hospitalist to discus this admission. 1930 I discussed the patient with PUBLIC SAFETY TELECOMMUNICATOR Charlene Waterman and the Hospitalist who states that the patient had a stress test in February and they do not believe that his chest pain is cardiac in nature and refused to admit the patient to the hospital. The patient does not complain of any shortness breath nor tachycardia. He has cardiomegaly and prominence of the interstitial vascularity with trace edema peripherally in his legs and may have early congestive heart failure. Orders Ordered: Discontinued Medications Aspirin (Aspirin Chew) 324 mg PO NOW ONE Stop: 06/25/19 18:21 Last Admin: 06/25/19 19:00 Dose: 243 mg Documented by: TIM Al Hydrox/Mg Hydrox/Simethicone 40 ml/ Lidocaine HCl 15 ml 0 ml PO NOW ONE Stop: 06/25/19 19:01 Last Admin: 06/25/19 19:48 Dose: 45 ml Documented by: LANE Furosemide (Lasix) 40 mg IV NOW ONE Stop: 06/25/19 19:01 Last Admin: 06/25/19 19:48 Dose: 40 mg Documented by: LANE Ketorolac Tromethamine (Toradol) 30 mg IV NOW ONE Stop: 06/25/19 14:40 Last Admin: 06/25/19 15:23 Dose: 30 mg Documented by: TIM Morphine Sulfate (Morphine) 4 mg IV NOW ONE Stop: 06/25/19 15:35 Last Admin: 06/25/19 16:26 Dose: 4 mg Documented by: TIM Morphine Sulfate (Morphine) 4 mg IV NOW ONE Stop: 06/25/19 18:17 Last Admin: 06/25/19 19:00 Dose: 4 mg Documented by: TIM Nitroglycerin (Nitro-Bid) 1 inch TOP NOW ONE Stop: 06/25/19 15:43 Last Admin: 06/25/19 16:25 Dose: 1 inch Documented by: TIM Ondansetron HCl (Zofran) 4 mg IV NOW ONE Stop: 06/25/19 13:04 Last Admin: 06/25/19 13:30 Dose: 4 mg Documented by: TIM Vital Signs Vital signs: Vital Signs - 8 hr 06/25/19 18:30 06/25/19 21:02 Pulse Rate 55 L 55 L Respiratory Rate 20 Blood Pressure [Left Arm] 156/87 H 144/65 H Pulse Oximetry 91 <Ramesh Jimenez, DO - Last Filed: 06/26/19 00:55> Orders Ordered: Discontinued Medications Aspirin (Aspirin Chew) 324 mg PO NOW ONE Stop: 06/25/19 18:21 Last Admin: 06/25/19 19:00 Dose: 243 mg Documented by: TIM Al Hydrox/Mg Hydrox/Simethicone 40 ml/ Lidocaine HCl 15 ml 0 ml PO NOW ONE Stop: 06/25/19 19:01 Last Admin: 06/25/19 19:48 Dose: 45 ml Documented by: LANE Furosemide (Lasix) 40 mg IV NOW ONE Stop: 06/25/19 19:01 Last Admin: 06/25/19 19:48 Dose: 40 mg Documented by: LANE Ketorolac Tromethamine (Toradol) 30 mg IV NOW ONE Stop: 06/25/19 14:40 Last Admin: 06/25/19 15:23 Dose: 30 mg Documented by: TIM Morphine Sulfate (Morphine) 4 mg IV NOW ONE Stop: 06/25/19 15:35 Last Admin: 06/25/19 16:26 Dose: 4 mg Documented by: ABROWN Morphine Sulfate (Morphine) 4 mg IV NOW ONE Stop: 06/25/19 18:17 Last Admin: 06/25/19 19:00 Dose: 4 mg Documented by: TIM Nitroglycerin (Nitro-Bid) 1 inch TOP NOW ONE Stop: 06/25/19 15:43 Last Admin: 06/25/19 16:25 Dose: 1 inch Documented by: TIM Ondansetron HCl (Zofran) 4 mg IV NOW ONE Stop: 06/25/19 13:04 Last Admin: 06/25/19 13:30 Dose: 4 mg Documented by: TIM Vital Signs Vital signs: Vital Signs - 8 hr 06/25/19 18:30 06/25/19 21:02 Pulse Rate 55 L 55 L Respiratory Rate 20 Blood Pressure [Left Arm] 156/87 H 144/65 H Pulse Oximetry 91 MDM - Chest Pain <Ulices Carrillo MD - Last Filed: 06/30/19 17:52> Medical Records Data Attestation: I reviewed the patient's medical records. Lab Data Attestation: I reviewed the patient's lab results. Result diagrams: 06/25/19 13:12 06/25/19 13:12 Labs: Lab Results 06/25/19 06/25/19 06/25/19 Range/Units 13:05 13:12 13:12 WBC 6.7 (4.5-11.0) X10^3/uL RBC 3.85 L (4.5-5.9) X10^6/uL Hgb 10.4 L (13.5-17.5) g/dL Hct 31.9 L (41-53) % MCV 82.8 (80-100) fL MCH 27.1 (26-34) PG MCHC 32.7 (30-36) % RDW 16.2 H (11.6-14.8) % Plt Count 185 (150-400) X10^3/uL Neut % (Auto) 64.9 (50-75) % Lymph % (Auto) 24.6 L (25-40) % [place] % (Auto) 7.9 (3-14) % Eos % (Auto) 1.6 L (2-4) % Baso % (Auto) 1.0 (0-2) % Neut # (Auto) 4400 (4849-2335) /uL Lymph # (Auto) 1700 (9074-4038) /uL [place] # (Auto) 500 (0-900) /uL Eos # (Auto) 100 (0-450) /uL Baso # (Auto) 100 (0-100) /uL PT 14.8 H (10.1-12.7) SECONDS INR 1.3 (0.9-1.3) APTT 34 (26.4-36.2) SECONDS D-Dimer (<230) ng/mL Sodium (137-145) mmol/L Potassium (3.4-5.1) mmol/L Chloride (98-107) mmol/L Carbon Dioxide (22-32) mmol/L BUN (9-20) mg/dL Creatinine (0.66-1.25) mg/dL Estimated GFR (>60) mL/min BUN/Creatinine Ratio (6-22) Glucose (70-100) mg/dL Calcium (8.4-10.2) mg/dL Magnesium (1.6-2.3) mg/dL Total Bilirubin (0.2-1.3) mg/dL AST (17-59) IU/L ALT (<50) IU/L Alkaline Phosphatase (38-126) U/L Total Creatine Kinase (55-170) U/L CK-MB (CK-2) (<2.37) ng/mL CK-MB (CK-2) Rel Index (1.5-5.0) % Troponin I (0.01-0.034) ng/mL NT-Pro-B Natriuret Pep (<125) pg/mL Total Protein (6.3-8.2) g/dL Albumin (3.5-5.0) g/dL Globulin (1.7-4.1) g/dL Albumin/Globulin Ratio (1.0-2.8) Lipase (23-300) U/L Influenza A (RT-PCR) Flu a negative (NEGATIVE) Influenza B (RT-PCR) Flu b negative (NEGATIVE) 06/25/19 06/25/19 06/25/19 Range/Units 13:12 13:12 13:12 WBC (4.5-11.0) X10^3/uL RBC (4.5-5.9) X10^6/uL Hgb (13.5-17.5) g/dL Hct (41-53) % MCV (80-100) fL MCH (26-34) PG MCHC (30-36) % RDW (11.6-14.8) % Plt Count (150-400) X10^3/uL Neut % (Auto) (50-75) % Lymph % (Auto) (25-40) % [place] % (Auto) (3-14) % Eos % (Auto) (2-4) % Baso % (Auto) (0-2) % Neut # (Auto) (0498-2264) /uL Lymph # (Auto) (2646-4569) /uL [place] # (Auto) (0-900) /uL Eos # (Auto) (0-450) /uL Baso # (Auto) (0-100) /uL PT (10.1-12.7) SECONDS INR (0.9-1.3) APTT (26.4-36.2) SECONDS D-Dimer 562 H (<230) ng/mL Sodium 136 L (137-145) mmol/L Potassium 4.2 (3.4-5.1) mmol/L Chloride 105 (98-107) mmol/L Carbon Dioxide 25 (22-32) mmol/L BUN 14 (9-20) mg/dL Creatinine 0.89 (0.66-1.25) mg/dL Estimated GFR > 60.0 (>60) mL/min BUN/Creatinine Ratio 15.7 (6-22) Glucose 142 H (70-100) mg/dL Calcium 8.9 (8.4-10.2) mg/dL Magnesium 1.9 (1.6-2.3) mg/dL Total Bilirubin 0.4 (0.2-1.3) mg/dL AST 20 (17-59) IU/L ALT 13 (<50) IU/L Alkaline Phosphatase 54 (38-126) U/L Total Creatine Kinase 133 (55-170) U/L CK-MB (CK-2) 0.98 (<2.37) ng/mL CK-MB (CK-2) Rel Index 0.7 L (1.5-5.0) % Troponin I < 0.012 (0.01-0.034) ng/mL NT-Pro-B Natriuret Pep 840 H (<125) pg/mL Total Protein 7.3 (6.3-8.2) g/dL Albumin 3.7 (3.5-5.0) g/dL Globulin 3.6 (1.7-4.1) g/dL Albumin/Globulin Ratio 1.0 (1.0-2.8) Lipase 36 (23-300) U/L Influenza A (RT-PCR) (NEGATIVE) Influenza B (RT-PCR) (NEGATIVE) 06/25/19 Range/Units 16:30 WBC (4.5-11.0) X10^3/uL RBC (4.5-5.9) X10^6/uL Hgb (13.5-17.5) g/dL Hct (41-53) % MCV (80-100) fL MCH (26-34) PG MCHC (30-36) % RDW (11.6-14.8) % Plt Count (150-400) X10^3/uL Neut % (Auto) (50-75) % Lymph % (Auto) (25-40) % [place] % (Auto) (3-14) % Eos % (Auto) (2-4) % Baso % (Auto) (0-2) % Neut # (Auto) (4902-0418) /uL Lymph # (Auto) (2935-3013) /uL [place] # (Auto) (0-900) /uL Eos # (Auto) (0-450) /uL Baso # (Auto) (0-100) /uL PT (10.1-12.7) SECONDS INR (0.9-1.3) APTT (26.4-36.2) SECONDS D-Dimer (<230) ng/mL Sodium (137-145) mmol/L Potassium (3.4-5.1) mmol/L Chloride (98-107) mmol/L Carbon Dioxide (22-32) mmol/L BUN (9-20) mg/dL Creatinine (0.66-1.25) mg/dL Estimated GFR (>60) mL/min BUN/Creatinine Ratio (6-22) Glucose (70-100) mg/dL Calcium (8.4-10.2) mg/dL Magnesium (1.6-2.3) mg/dL Total Bilirubin (0.2-1.3) mg/dL AST (17-59) IU/L ALT (<50) IU/L Alkaline Phosphatase (38-126) U/L Total Creatine Kinase (55-170) U/L CK-MB (CK-2) (<2.37) ng/mL CK-MB (CK-2) Rel Index (1.5-5.0) % Troponin I < 0.012 (0.01-0.034) ng/mL NT-Pro-B Natriuret Pep (<125) pg/mL Total Protein (6.3-8.2) g/dL Albumin (3.5-5.0) g/dL Globulin (1.7-4.1) g/dL Albumin/Globulin Ratio (1.0-2.8) Lipase (23-300) U/L Influenza A (RT-PCR) (NEGATIVE) Influenza B (RT-PCR) (NEGATIVE) ECG Data Attestation: I personally reviewed and interpreted this ECG as follows: Interpretation: The EKG obtained on June 24 at 13:0 5:17 a.m. reveals a sinus bradycardia with a ventricular rate of 57 intervals are normal. QTC is slightly prolonged at 478 milliseconds. [place] is borderline normal. The patient has Q-waves in leads III and AVF with inverted T-wave in lead III and flattened T-waves in lead AVF. There are no other acute diagnostic ST segment or T-wave changes noted. <Ramesh Jimenez, DO - Last Filed: 06/26/19 00:55> Lab Data Labs: Lab Results 06/25/19 06/25/19 06/25/19 Range/Units 13:05 13:12 13:12 WBC 6.7 (4.5-11.0) X10^3/uL RBC 3.85 L (4.5-5.9) X10^6/uL Hgb 10.4 L (13.5-17.5) g/dL Hct 31.9 L (41-53) % MCV 82.8 (80-100) fL MCH 27.1 (26-34) PG MCHC 32.7 (30-36) % RDW 16.2 H (11.6-14.8) % Plt Count 185 (150-400) X10^3/uL Neut % (Auto) 64.9 (50-75) % Lymph % (Auto) 24.6 L (25-40) % [place] % (Auto) 7.9 (3-14) % Eos % (Auto) 1.6 L (2-4) % Baso % (Auto) 1.0 (0-2) % Neut # (Auto) 4400 (6201-4695) /uL Lymph # (Auto) 1700 (5971-8083) /uL [place] # (Auto) 500 (0-900) /uL Eos # (Auto) 100 (0-450) /uL Baso # (Auto) 100 (0-100) /uL PT 14.8 H (10.1-12.7) SECONDS INR 1.3 (0.9-1.3) APTT 34 (26.4-36.2) SECONDS D-Dimer (<230) ng/mL Sodium (137-145) mmol/L Potassium (3.4-5.1) mmol/L Chloride (98-107) mmol/L Carbon Dioxide (22-32) mmol/L BUN (9-20) mg/dL Creatinine (0.66-1.25) mg/dL Estimated GFR (>60) mL/min BUN/Creatinine Ratio (6-22) Glucose (70-100) mg/dL Calcium (8.4-10.2) mg/dL Magnesium (1.6-2.3) mg/dL Total Bilirubin (0.2-1.3) mg/dL AST (17-59) IU/L ALT (<50) IU/L Alkaline Phosphatase (38-126) U/L Total Creatine Kinase (55-170) U/L CK-MB (CK-2) (<2.37) ng/mL CK-MB (CK-2) Rel Index (1.5-5.0) % Troponin I (0.01-0.034) ng/mL NT-Pro-B Natriuret Pep (<125) pg/mL Total Protein (6.3-8.2) g/dL Albumin (3.5-5.0) g/dL Globulin (1.7-4.1) g/dL Albumin/Globulin Ratio (1.0-2.8) Lipase (23-300) U/L Influenza A (RT-PCR) Flu a negative (NEGATIVE) Influenza B (RT-PCR) Flu b negative (NEGATIVE) 06/25/19 06/25/19 06/25/19 Range/Units 13:12 13:12 13:12 WBC (4.5-11.0) X10^3/uL RBC (4.5-5.9) X10^6/uL Hgb (13.5-17.5) g/dL Hct (41-53) % MCV (80-100) fL MCH (26-34) PG MCHC (30-36) % RDW (11.6-14.8) % Plt Count (150-400) X10^3/uL Neut % (Auto) (50-75) % Lymph % (Auto) (25-40) % [place] % (Auto) (3-14) % Eos % (Auto) (2-4) % Baso % (Auto) (0-2) % Neut # (Auto) (4769-8274) /uL Lymph # (Auto) (4667-4258) /uL [place] # (Auto) (0-900) /uL Eos # (Auto) (0-450) /uL Baso # (Auto) (0-100) /uL PT (10.1-12.7) SECONDS INR (0.9-1.3) APTT (26.4-36.2) SECONDS D-Dimer 562 H (<230) ng/mL Sodium 136 L (137-145) mmol/L Potassium 4.2 (3.4-5.1) mmol/L Chloride 105 (98-107) mmol/L Carbon Dioxide 25 (22-32) mmol/L BUN 14 (9-20) mg/dL Creatinine 0.89 (0.66-1.25) mg/dL Estimated GFR > 60.0 (>60) mL/min BUN/Creatinine Ratio 15.7 (6-22) Glucose 142 H (70-100) mg/dL Calcium 8.9 (8.4-10.2) mg/dL Magnesium 1.9 (1.6-2.3) mg/dL Total Bilirubin 0.4 (0.2-1.3) mg/dL AST 20 (17-59) IU/L ALT 13 (<50) IU/L Alkaline Phosphatase 54 (38-126) U/L Total Creatine Kinase 133 (55-170) U/L CK-MB (CK-2) 0.98 (<2.37) ng/mL CK-MB (CK-2) Rel Index 0.7 L (1.5-5.0) % Troponin I < 0.012 (0.01-0.034) ng/mL NT-Pro-B Natriuret Pep 840 H (<125) pg/mL Total Protein 7.3 (6.3-8.2) g/dL Albumin 3.7 (3.5-5.0) g/dL Globulin 3.6 (1.7-4.1) g/dL Albumin/Globulin Ratio 1.0 (1.0-2.8) Lipase 36 (23-300) U/L Influenza A (RT-PCR) (NEGATIVE) Influenza B (RT-PCR) (NEGATIVE) 06/25/19 Range/Units 16:30 WBC (4.5-11.0) X10^3/uL RBC (4.5-5.9) X10^6/uL Hgb (13.5-17.5) g/dL Hct (41-53) % MCV (80-100) fL MCH (26-34) PG MCHC (30-36) % RDW (11.6-14.8) % Plt Count (150-400) X10^3/uL Neut % (Auto) (50-75) % Lymph % (Auto) (25-40) % [place] % (Auto) (3-14) % Eos % (Auto) (2-4) % Baso % (Auto) (0-2) % Neut # (Auto) (2977-3609) /uL Lymph # (Auto) (4656-6854) /uL [place] # (Auto) (0-900) /uL Eos # (Auto) (0-450) /uL Baso # (Auto) (0-100) /uL PT (10.1-12.7) SECONDS INR (0.9-1.3) APTT (26.4-36.2) SECONDS D-Dimer (<230) ng/mL Sodium (137-145) mmol/L Potassium (3.4-5.1) mmol/L Chloride (98-107) mmol/L Carbon Dioxide (22-32) mmol/L BUN (9-20) mg/dL Creatinine (0.66-1.25) mg/dL Estimated GFR (>60) mL/min BUN/Creatinine Ratio (6-22) Glucose (70-100) mg/dL Calcium (8.4-10.2) mg/dL Magnesium (1.6-2.3) mg/dL Total Bilirubin (0.2-1.3) mg/dL AST (17-59) IU/L ALT (<50) IU/L Alkaline Phosphatase (38-126) U/L Total Creatine Kinase (55-170) U/L CK-MB (CK-2) (<2.37) ng/mL CK-MB (CK-2) Rel Index (1.5-5.0) % Troponin I < 0.012 (0.01-0.034) ng/mL NT-Pro-B Natriuret Pep (<125) pg/mL Total Protein (6.3-8.2) g/dL Albumin (3.5-5.0) g/dL Globulin (1.7-4.1) g/dL Albumin/Globulin Ratio (1.0-2.8) Lipase (23-300) U/L Influenza A (RT-PCR) (NEGATIVE) Influenza B (RT-PCR) (NEGATIVE) Imaging Data CT scan - chest: Radiologist's Impression: [place] [address] CT Scan Report Signed Patient: Luis E Pierre RMR#: [id number] : 1Acct:[id number] Age/Sex: 58 / MDate of Service: 06/25/19 Loc: ED Accession Number: [id number] Procedure: CT angio chest PE protocol Ordering Provider: Ramesh Jimenez D.O. PROCEDURE: CT ANGIO CHEST PE PROTOCOL INDICATIONS: Chest pain, shortness of breath TECHNIQUE: After the administration of intravenous contrast, 2 mm thick sections acquired from the pulmonary apices to the posterior costophrenic angles. 3-dimensional maximum intensity projection (MIP) coronal and sagittal reformats were then acquired through the thorax. For radiation dose reduction, the following was used: automated exposure control, adjustment of mA and/or kV according to patient size. Is 19:33. [facility], CT, CT ANGIO CHEST PE PROTOCOL, 06/06/2019, 14:12. FINDINGS: Image quality: Excellent. Pulmonary arteries: Pulmonary arteries are normal in size, and demonstrate no intraluminal filling defects to suggest central pulmonary embolism. Lungs and pleura: Patchy, peripheral poorly defined areas of consolidation are seen, with bibasilar predominance. These are similar to the 06/06/19 examination. No pneumothorax or pleural effusions are seen. The central airways are patent. Mediastinum: Post CABG changes are seen. Heart size is normal, without pericardial effusion. Stable moderately enlarged mediastinal and parahilar the are seen. Thoracic aorta is normal in caliber and enhancement. Esophagus is normal in caliber, without hiatal hernia. Bones and chest wall: No suspicious bony lesions. Age-appropriate bony degenerative changes are seen. Ribs and thoracic spine appear intact throughout. Thyroid gland demonstrates no significant CT abnormality. No axillary or supraclavicular adenopathy. Abdomen: Visualized upper abdominal solid organs appear normal in the early arterial phase of enhancement. IMPRESSION: Negative for pulmonary embolism. Patchy areas of poorly defined consolidation are seen, which are similar to the prior CT dated 06/06/19. Associated persistently enlarged mediastinal lymph nodes are seen. These are attributed to chronic infection. Please consider atypical causes. Differential diagnosis includes inflammatory change. Pulmonary edema is considered to be less likely. (Given the persistence of this finding, coronavirus is considered to be highly unlikely.) Dictated by: David Gonzalez M.D. on 06/25/2019 at 19:26 Approved by: David Gonzalez M.D. on 06/25/2019 at 19:32 MDM Narrative Medical decision making narrative: Dr jimenez: Received turned over from Dr. carrillo. Review patient's history and physical. Reviewed patient's labs an EKG. Patient has been seen in the past for very similar symptoms that he came in to the emergency department today for. CT scan was ordered prior to the start of my care. CT scale an eventually shows no signs of pulmonary embolism. Patient has had negative troponin x2. Has a follow-up with his primary doctor on Wednesday. His scheduled for cardiac catheterization on . Dr. Carrillo discussed the care with Cardiology who stated that the patient would potentially benefit from a stress test however hospitalist at this facility does not feel the patient needs admitted to the hospital. They feel that patient's symptoms are similar to his prior symptoms. I feel that given the fact that the patient has had symptoms like this in the past. Has had 2-troponins has no changes in his EKG and no pulmonary embolism and is scheduled for stress test this that he can be discharged home to keep all of these appointments. He was given return precautions and follow-up instructions. He expressed understanding and agreement. Discharge Plan Departure Patient Disposition: Home Clinical Impression: Atypical chest pain Discharge Date/Time: 06/25/19 21:21 Instructions: DI for Atypical Chest Pain Activity Restrictions/Additional Instructions: Continue all of your medications as directed. Recommend that you keep all of your scheduled medical appointments. Tomorrow contact your primary provider for a follow-up. Return to the emergency department for any new or worsening symptoms Prescriptions: No Action lisinopril 10 mg tablet 10 mg PO DAILY RF: 0 gabapentin 300 mg capsule 300 mg PO TID RF: 0 fenofibrate 160 mg tablet 160 mg PO DAILY RF: 0 tramadol 50 mg tablet 50 mg PO BID MDD 2 tabs RF: 0 lorazepam 1 mg tablet 1 mg PO DAILY PRN (Reason: anxiety) Qty: 10 RF: 1 metformin [Glucophage XR] 500 MG tablet extended release 24 hr 500 mg PO BIDCC Qty: 60 RF: 0 fluoxetine 40 mg capsule 80 mg PO DAILY Qty: 180 RF: 3 divalproex [Depakote] 500 mg tablet,delayed release (DR/EC) 1,500 mg PO BEDTIME Qty: 360 RF: 0 nitroglycerin [Nitrostat] 0.4 mg Tablet, Sublingual 0.4 mg Sublingual Q5 MIN PRN PRN (Reason: Chest Pain) RF: 0 insulin glargine 100 unit/mL (3 mL) Insulin Pen 30 units Sub-Q BEDTIME RF: 0 atorvastatin 40 mg Tablet 40 mg PO BEDTIME RF: 0 levothyroxine [Synthroid] 75 mcg Tablet 75 mcg PO DAILY RF: 0 insulin aspart U-100 100 unit/mL Insulin Pen See Rx Instructions .ROUTE .COMPLEX RF: 0 aspirin 81 mg Tablet,Delayed Release (Dr/Ec) 81 mg PO DAILY RF: 0 isosorbide mononitrate 60 mg Tablet Extended Release 24 Hr 60 mg PO DAILY RF: 0 Xarelto 20 mg Tablet 20 mg PO QPM RF: 0 cholecalciferol (vitamin D3) [Vitamin D3] 5,000 unit Tablet 5,000 unit PO DAILY RF: 0 ziprasidone HCl 80 mg capsule 80 mg PO BEDTIME RF: 0 furosemide 40 mg Tablet 40 mg PO DAILY RF: 0 hydrochlorothiazide 25 mg Tablet 25 mg PO DAILY RF: 0 metoprolol succinate [Toprol XL] 25 MG tablet extended release 24 hr 25 mg PO DAILY RF: 0 omeprazole 20 mg Capsule,Delayed Release(Dr/Ec) 20 mg PO DAILY RF: 0 alprazolam 0.5 mg Tablet 0.5 mg PO BID PRN (Reason: Anxiety) RF: 0 aripiprazole 30 mg Tablet 45 mg PO DAILY RF: 0 Novolin N NPH U-100 Insulin 100 unit/mL Suspension 60 unit SUBCUT QPM RF: 0 doxycycline hyclate 100 mg capsule 100 mg PO BID Qty: 20 RF: 0 (DME) ResMed AirCurve 10 BIPAP Qty: 1 RF: 0 Referrals: Sandra Garland [Primary Care Provider] -
[2019-06-25 15:14] VITALS: BP 126/66; PULSE 53; RESP 14; O2SAT 94
[2019-06-25 15:21] VITALS: BP 126/66; PULSE 53; O2SAT 94
[2019-06-25] MEDS: KETOROLAC 60 MG/2 ML VIAL 30 MG IV (15:23)
[2019-06-25 16:25] VITALS: BP 139/67
[2019-06-25] MEDS: NITROGLYCERIN OINT 1 INCH/GM OINT...G. TOP (16:25)
[2019-06-25] MEDS: MORPHINE 4 MG/ML INJ IV ×2 (16:26→19:00)
[2019-06-25 17:00] LABS: Troponin I < 0.012 ng/mL (0.01-0.034)
[2019-06-25 18:30] VITALS: BP 156/87; PULSE 55
[2019-06-25] MEDS: ASPIRIN 81 MG CHEW TAB 324 MG PO (19:00)
[2019-06-25 19:48] LABS: D Dimer 562 ng/mL (<230)
[2019-06-25] MEDS: FUROSEMIDE 40 MG/4 ML VIAL IV (19:48)
[2019-06-25] MEDS: MAG HYDROX/ALUMINUM/SIMETH SUS 40 ML, LIDOCAINE VISCOUS 2% 15 ML PO (19:48)
--- NOTE | 2019-06-25 19:53 | DI.CT.S_ITS ---
PROCEDURE: CT ANGIO CHEST PE PROTOCOL INDICATIONS: Chest pain, shortness of breath TECHNIQUE: After the administration of intravenous contrast, 2 mm thick sections acquired from the pulmonary apices to the posterior costophrenic angles. 3-dimensional maximum intensity projection (MIP) coronal and sagittal reformats were then acquired through the thorax. For radiation dose reduction, the following was used: automated exposure control, adjustment of mA and/or kV according to patient size. Is 19:33. [facility], CT, CT ANGIO CHEST PE PROTOCOL, 06/06/2019, 14:12. FINDINGS: Image quality: Excellent. Pulmonary arteries: Pulmonary arteries are normal in size, and demonstrate no intraluminal filling defects to suggest central pulmonary embolism. Lungs and pleura: Patchy, peripheral poorly defined areas of consolidation are seen, with bibasilar predominance. These are similar to the 06/06/19 examination. No pneumothorax or pleural effusions are seen. The central airways are patent. Mediastinum: Post CABG changes are seen. Heart size is normal, without pericardial effusion. Stable moderately enlarged mediastinal and parahilar the are seen. Thoracic aorta is normal in caliber and enhancement. Esophagus is normal in caliber, without hiatal hernia. Bones and chest wall: No suspicious bony lesions. Age-appropriate bony degenerative changes are seen. Ribs and thoracic spine appear intact throughout. Thyroid gland demonstrates no significant CT abnormality. No axillary or supraclavicular adenopathy. Abdomen: Visualized upper abdominal solid organs appear normal in the early arterial phase of enhancement. IMPRESSION: Negative for pulmonary embolism. Patchy areas of poorly defined consolidation are seen, which are similar to the prior CT dated 06/06/19. Associated persistently enlarged mediastinal lymph nodes are seen. These are attributed to chronic infection. Please consider atypical causes. Differential diagnosis includes inflammatory change. Pulmonary edema is considered to be less likely. (Given the persistence of this finding, coronavirus is considered to be highly unlikely.) Dictated by: David Gonzalez M.D. on 06/25/2019 at 19:26 Approved by: David Gonzalez M.D. on 06/25/2019 at 19:32
--- NOTE | 2019-06-25 20:00 | PC.NURSE ---
Dr. Rico states that he is not concerned w/ Covid infection, flu was negative. Order to discontinue isolation.
[2019-06-25 21:02] VITALS: BP 144/65; PULSE 55; RESP 20; O2SAT 91
== END 2019-06-25 21:21 | disposition home or self-care (01) ==
PROVIDERS: Emergency Medicine; Emergency Provider Emergency Medicine; PCP Family Medicine
DX: R07.89 Other chest pain (principal); I51.7 Cardiomegaly; R06.02 Shortness of breath; R05 Cough; R11.2 Nausea with vomiting, unspecified; I10 Essential (primary) hypertension; E78.5 Hyperlipidemia, unspecified; I25.10 Atherosclerotic heart disease of native coronary artery without angina pectoris; I50.9 Heart failure, unspecified; J44.9 Chronic obstructive pulmonary disease, unspecified; E11.8 Type 2 diabetes mellitus with unspecified complications; Z79.4 Long term (current) use of insulin; Z95.5 Presence of coronary angioplasty implant and graft
CPT/HCPCS: 36415; 71045; 71275; 80053; 82550; 82553; 83690; 83735; 83880; 84484; 85025; 85379; 85610; 85730; 87502; 93005; 96374; 96375; 96376; 99284; 99285; J1885; J1940; J2270; J2405; Q9967

== ENCOUNTER 2019-07-12 20:34 | Observation (INO) | payer OTHER, SELFPAY ==
[2019-02-16 14:44] VITALS: BMI 39.5
--- NOTE | 2019-07-12 20:45 | DI.RAD.S_ITS ---
PROCEDURE: XR CHEST 1V INDICATIONS: anterior chest pain after fall TECHNIQUE: One view of the chest was acquired. COMPARISON: [facility], CT, CT ANGIO CHEST PE PROTOCOL, 06/25/2019, 19:54. [facility], CR, XR CHEST 1V, 06/25/2019, 13:28. FINDINGS: Surgical changes and devices: Sternal wires consistent previous bypass procedure. Lungs and pleura: Previous there are bibasilar opacities appear improved. No pleural effusions or pneumothorax. Mild increased vascularity. Mediastinum: Mediastinal contours appear normal. Heart size is enlarged. Bones and chest wall: No suspicious bony lesions. Overlying soft tissues appear unremarkable. IMPRESSION: Cardiomegaly with increased vascularity suggestive of edema. Improved, although incompletely resolved appearance of previous bibasilar opacities. Dictated by: Reena Barrios M.D. on 07/12/2019 at 21:03 Approved by: Reena Barrios M.D. on 07/12/2019 at 21:05
[2019-07-12 20:46] VITALS: BP 132/63; PULSE 58; RESP 22; TEMP 36.9; O2SAT 95; BMI 43.5
[2019-07-12 20:53] LABS: Add Manual Diff / Slide Review NO; Basophils Absolute Auto 0 /uL (0-100); Basophils Percent Auto 0.6 % (0-2); Eosinophils Absolute Auto 100 /uL (0-450); Eosinophils Percent Auto 1.2 % (2-4); Hematocrit 36.9 % (41-53); Hemoglobin 11.8 g/dL (13.5-17.5); Lymphocytes Absolute Auto 2500 /uL (1100-4500); Mean Corpuscular HGB Conc 31.9 % (30-36); Mean Corpuscular Hemoglobin 26.9 PG (26-34); Mean Corpuscular Volume 84.3 fL (80-100); Monocytes Absolute Auto 600 /uL (0-900); Monocytes Percent Auto 8.2 % (3-14); Neutrophils Absolute Auto 3700 /uL (1500-7000); Platelet Count 146 X10^3/uL (150-400); Red Blood Cell Count 4.37 X10^6/uL (4.5-5.9); White Blood Cell Count 6.9 X10^3/uL (4.5-11.0)
[2019-07-12] MEDS: KETOROLAC 60 MG/2 ML VIAL 15 MG IV (20:56)
[2019-07-12] MEDS: SODIUM CHLORIDE 0.9% 1,000 ML 150 ML IV (20:57)
[2019-07-12 20:59] LABS: Alanine Aminotransferase 18 IU/L (<50); Albumin Globulin Ratio 1.2 (1.0-2.8); Alkaline Phosphatase 75 U/L (38-126); Aspartate Aminotransferase 20 IU/L (17-59); Bilirubin Total 0.2 mg/dL (0.2-1.3); Blood Urea Nitrogen 34 mg/dL (9-20); Calcium 9.4 mg/dL (8.4-10.2); Carbon Dioxide 31 mmol/L (22-32); Chloride 91 mmol/L (98-107); Creatine Kinase 124 U/L (55-170); Estimated Glomerular Filt Rate 58.8 mL/min (>60); Globulin 3.4 g/dL (1.7-4.1); HEMOLYSIS 15 (0-50); Lipase 404 U/L (23-300); Potassium 3.8 mmol/L (3.4-5.1); Sodium 132 mmol/L (137-145); Total Protein 7.4 g/dL (6.3-8.2)
[2019-07-12 21:00] VITALS: BP 131/60; PULSE 53; O2SAT 97
[2019-07-12 21:09] LABS: Glucose 649 mg/dL (70-100)
[2019-07-12 21:11] LABS: Troponin I < 0.012 ng/mL (0.01-0.034)
[2019-07-12 21:14] LABS: CKMB % Relative Index 0.6 % (1.5-5.0); Creatine Kinase MB 0.78 ng/mL (<2.37)
[2019-07-12 21:30] VITALS: BP 131/62; PULSE 53; O2SAT 96
[2019-07-12] MEDS: SODIUM CHLORIDE 0.9% 1,000 ML 1000 ML IV ×2 (21:36→23:13)
[2019-07-12] MEDS: INSULIN REGULAR 100 UNIT/ML 3 ML VIAL 10 UNIT SUBCUT ×2 (21:36→23:13)
--- NOTE | 2019-07-12 21:51 | ED_ITS ---
HPI - Chest Pain General Chief Complaint: Chest Pain Stated Complaint: Chest Pain Time Seen by Provider: 07/12/19 20:37 Source: patient and EMS Mode of arrival: EMS Limitations: no limitations History of Present Illness HPI narrative: 58-year-old male former smoker with chronic chest pain and diabetes presents by EMS for evaluation of left anterior chest pain over the past few hours. He states that he was in his normal state of health and laying in bed when he got up to go use the restroom, felt lightheaded and lowered himself to his knees. He denies any loss of consciousness and states that the lightheadedness started soon after standing up. The episode was brief and he developed sharp left anterior chest pain when trying to pull himself up off the ground. He states his pain feels different than his typical cardiac pain. He states it is worse when he uses his left arm when he takes a deep breath or when we press. He is not dizzy nor weak or lightheaded. He denies any fever or chills, shortness of breath nor cough. He was recently at [facility] and had a heart catheterization which showed no significant abnormalities, there was no stent placed MD complaint: chest pain Onset (ago): hour(s) Duration: improved Onset: other Pain location: left chest Severity: moderate Quality: sharp Pain radiation: none Relieving factors: rest Exacerbating factors: inspiration, palpation and movement Context: other Treatments prior to arrival chest pain: none Related Data Home Medications Medication Instructions Recorded Confirmed metformin [Glucophage XR] 500 mg PO BIDCC #60 tab 12/25/16 06/06/19 atorvastatin 40 mg PO BEDTIME 10/12/17 06/06/19 insulin aspart U-100 See Rx Instructions .ROUTE .COMPLEX 10/12/17 06/06/19 insulin glargine 30 units SUB-Q BEDTIME 10/12/17 06/06/19 levothyroxine [Synthroid] 75 mcg PO DAILY 10/12/17 06/06/19 nitroglycerin [Nitrostat] 0.4 mg SUBLINGUAL Q5 MIN PRN PRN 10/12/17 06/06/19 lisinopril 10 mg tablet 10 mg PO DAILY 02/07/18 06/06/19 furosemide 40 mg PO DAILY 05/26/18 06/06/19 hydrochlorothiazide 25 mg PO DAILY 05/26/18 06/06/19 metoprolol succinate [Toprol XL] 25 mg PO DAILY 05/26/18 06/06/19 ResMed AirCurve 10 BIPAP #1 ea 06/09/18 06/06/19 fenofibrate 160 mg tablet 160 mg PO DAILY 12/16/18 06/06/19 tramadol 50 mg tablet 50 mg PO BID MDD 2 tabs 12/16/18 06/06/19 omeprazole 20 mg PO DAILY 12/20/18 06/06/19 Xarelto 20 mg PO QPM 02/16/19 06/06/19 aspirin 81 mg PO DAILY 02/16/19 06/06/19 isosorbide mononitrate 60 mg PO DAILY 02/16/19 06/06/19 gabapentin 300 mg capsule 300 mg PO TID cap 03/17/19 06/06/19 cholecalciferol (vitamin D3) 5,000 unit PO DAILY 04/25/19 06/06/19 [Vitamin D3] ziprasidone HCl 80 mg PO BEDTIME 04/25/19 06/06/19 alprazolam 0.5 mg PO BID PRN 06/06/19 06/06/19 aripiprazole 45 mg PO DAILY 06/06/19 06/06/19 insulin NPH isoph U-100 human 60 unit SUBCUT QPM 06/06/19 06/06/19 [Novolin N NPH U-100 Insulin] Previous Rx's Medication Instructions Recorded fluoxetine 40 mg capsule 80 mg PO DAILY #180 cap 04/17/19 divalproex 500 mg tablet,delayed 1,500 mg PO BEDTIME #360 tab 04/21/19 release doxycycline hyclate 100 mg PO BID #20 cap 06/06/19 lorazepam 1 mg tablet 1 mg PO DAILY PRN #10 tab 06/30/19 Allergies Allergy/AdvReac Type Severity Reaction Status Date / Time Penicillins [PENICILLINS] Allergy Severe Swelling Verified 06/25/19 13:00 of Lip/Tongue/Throat Alluna Sleep AdvReac Severe Difficulty Uncoded 05/30/19 13:21 Swallowing Review of Systems Constitutional Constitutional: Denies chills, Denies fatigue, Denies fever(s), Denies frequent falls, Denies lethargy and Denies weakness Eyes Eyes: Denies change in vision, Denies eye discharge, Denies irritation and Denies loss of vision ENT Ears, Nose, Mouth, and Throat: Denies change in voice, Denies dizziness, Denies neck pain, Denies sore throat and Denies throat swelling Cardiovascular Cardiovascular: Reports chest pain, Denies irregular heart rhythm, Denies lightheadedness, Denies palpitations, Denies dyspnea, Denies dyspnea on exertion and Denies orthopnea Comments: near syncope, orthostatic Respiratory Respiratory: Denies cough, Denies dyspnea, Denies dyspnea on exertion and Denies wheezing Gastrointestinal Gastrointestinal: Denies abdominal pain, Denies change in bowel habits, Denies diarrhea, Denies nausea and Denies vomiting Genitourinary Genitourinary: Denies hematuria, Denies flank pain, Denies urinary incontinence and Denies urinary urgency Musculoskeletal Musculoskeletal: Denies back pain, Denies muscle weakness, Denies neck pain, Denies numbness and Denies tingling Integumentary/Breasts Skin/Breast: Denies pruritus, Denies erythema, Denies rash and Denies wounds Neurologic Neurologic: Denies behavioral changes, Denies confusion, Denies dizziness, Denies frequent falls, Denies loss of vision, Denies numbness, Denies tingling and Denies weakness Psychiatric Psychiatric: Denies anxiety, Denies behavioral changes, Denies confusion, Denies depression, Denies homicidal ideation and Denies suicidal ideation Endocrine Endocrine: Denies fatigue, Denies flushing and Denies palpitations Hematologic/Lymphatic Hematologic/Lymphatic: Denies easy bruising Allergic/Immunologic Allergic/Immunologic: Denies urticaria, Denies throat swelling and Denies wheezing Patient History Medical History (Updated 07/13/19 @ 02:49 by GENE Segovia) Acute hyperglycemia (Acute) Atypical chest pain (Acute) CAD (coronary artery disease) (Chronic) Chronic left shoulder pain (Acute) Diabetes type 2, controlled (Chronic) HTN (hypertension) (Chronic) Hyperlipidemia (Chronic) Obstructive sleep apnea of adult (Chronic) Pulmonary embolism (Acute) Schizoaffective disorder (Chronic) Tardive dyskinesia (Acute) Surgical History Hx of CABG (Chronic) Family History Mother Coronary artery disease Father No problems noted. Social History marital status: unmarried,single details: lives with his parents household members: family lives independently: Yes caregiver/support person: Yes housing: house pets and animals: Yes Smoking Status: Former smoker alcohol intake: never substance use type: does not use Smoking Status: Former smoker alcohol intake frequency: 0-2 drinks per day Substance Use Type: does not use Exam Narrative Exam Narrative: GENERAL: [58] year old patient appears stated age. Well- nourished, well-developed patient, in mild distress. Flat affect HEAD: Atraumatic. Normocephalic. EYES: Pupils equal round and reactive. Extraocular motions intact. No scleral icterus. No injection or drainage. ENT: Nose without bleeding, purulent drainage. Throat without erythema, tonsillar hypertrophy or exudate. Airway patent. NECK: Trachea midline. Non tender CARDIOVASCULAR: Regular rate and rhythm without murmurs, gallops, or rubs. Pain on palpation of L anterior chest, which (per patient) reproduces that pain RESPIRATORY: Clear to auscultation. Breath sounds equal bilaterally. No wheezes, rales, or rhonchi. GASTROINTESTINAL: Abdomen soft, non-tender, nondistended. EXTREMITIES: No edema or joint tenderness. BACK: Nontender without deformity or crepitance. No flank tenderness. NEURO: AOx3. SKIN: No rash or erythema of visible areas Initial Vital Signs Initial Vital Signs: Vital Signs Temperature 98.5 F 07/12/19 20:46 Pulse Rate 58 L 07/12/19 20:46 Respiratory Rate 22 07/12/19 20:46 Blood Pressure 132/63 07/12/19 20:46 Pulse Oximetry 95 07/12/19 20:46 Course Orders Ordered: ED Orders 07/12/19 22:25 Basic Metabolic Panel Stat Troponin I Stat 07/12/19 23:58 Basic Metabolic Panel Stat Acetaminophen (Tylenol) 650 mg PO Q6HR PRN PRN Reason: Fever/Mild Pain (1-3) Aripiprazole (Abilify) 45 mg PO DAILY JOSE L Aspirin (Aspirin Ec) 81 mg PO DAILY JOSE L Atorvastatin Calcium (Lipitor) 40 mg PO BEDTIME JOSE L Dextrose (D50w) 25 gm IV PRN PRN PRN Reason: Hypoglycemia Divalproex Sodium (Depakote) 1,500 mg PO BEDTIME JOSE L Fenofibrate (Triglide) 160 mg PO DAILY JOSE L Fluoxetine HCl (Prozac) 80 mg PO DAILY JOSE L Gabapentin (Neurontin) 300 mg PO TID [facility] Insulin Human Regular 100 unit (/ Sodium Chloride) 100 mls @ 6 mls/hr IV TITRATE JOSE L; Protocol Last Admin: 07/13/19 02:20 Dose: 6 ml/hr, 6 mls/hr Documented by: AIMEE Cosigned by: LG Sodium Chloride (Normal Saline 0.9%) 1,000 mls @ 75 mls/hr IV CONT JOSE L Last Admin: 07/13/19 03:36 Dose: Not Given Documented by: AIMEE Isosorbide Mononitrate (Imdur) 60 mg PO DAILY JOSE L Levothyroxine Sodium (Synthroid) 75 mcg PO QACBREAK JOSE L Lisinopril (Zestril) 10 mg PO DAILY [facility] Metoprolol Succinate (Toprol Xl) 25 mg PO DAILY [facility] Morphine Sulfate (Morphine) 2 mg IV Q4HR PRN PRN Reason: Pain, Moderate (4-6) Last Admin: 07/13/19 05:34 Dose: 2 mg Documented by: AIMEE Nitroglycerin (Nitrostat) 0.4 mg SL [id number] PRN PRN Reason: Chest Pain Last Admin: 07/13/19 05:11 Dose: 0.4 mg Documented by: AIMEE Non-Formulary Medication (Ziprasidone Hcl) 80 mg PO BEDTIME JOSE L Rivaroxaban (Xarelto) 20 mg PO QPM JOSE L Discontinued Medications Sodium Chloride (Normal Saline 0.9%) 1,000 mls @ 150 mls/hr IV CONT JOSE L Last Infusion: 07/13/19 03:32 Dose: 75 mls/hr Documented by: Admin: 07/13/19 02:21 Dose: 150 mls/hr Documented by: Infusion: 07/13/19 01:09 Dose: 0 mls/hr Documented by: Admin: 07/12/19 20:57 Dose: 150 mls/hr Documented by: GLEN Sodium Chloride (Normal Saline 0.9%) 1,000 mls @ 1,000 mls/hr IV BOLUS ONE Stop: 07/12/19 22:29 Last Infusion: 07/12/19 22:55 Dose: 0 mls/hr Documented by: Admin: 07/12/19 21:36 Dose: 1,000 mls/hr Documented by: GLEN Sodium Chloride (Normal Saline 0.9%) 1,000 mls @ 1,000 mls/hr IV BOLUS ONE Stop: 07/13/19 00:10 Last Infusion: 07/13/19 00:04 Dose: 0 mls/hr Documented by: Admin: 07/12/19 23:13 Dose: 1,000 mls/hr Documented by: CHARU Insulin Human Regular (Humulin R) 10 unit SUBCUT NOW ONE Stop: 07/12/19 21:31 Last Admin: 07/12/19 21:36 Dose: 10 unit Documented by: GLEN Cosigned by: CHRAU Insulin Human Regular (Humulin R) 10 unit SUBCUT NOW ONE Stop: 07/12/19 23:11 Last Admin: 07/12/19 23:13 Dose: 10 unit Documented by: CHARU Cosigned by: GLEN Ketorolac Tromethamine (Toradol) 15 mg IV NOW ONE Stop: 07/12/19 20:46 Last Admin: 07/12/19 20:56 Dose: 15 mg Documented by: GLEN Vital Signs Vital signs: Vital Signs - 8 hr 07/12/19 23:47 Pulse Rate 47 L Respiratory Rate 20 Blood Pressure [Left Arm] 118/56 L Pulse Oximetry 92 MDM - Chest Pain Lab Data Result diagrams: 07/13/19 04:30 07/13/19 04:30 Labs: Lab Results 07/12/19 07/12/19 07/12/19 Range/Units 02:22 20:35 20:35 WBC 6.9 (4.5-11.0) X10^3/uL RBC 4.37 L (4.5-5.9) X10^6/uL Hgb 11.8 L (13.5-17.5) g/dL Hct 36.9 L (41-53) % MCV 84.3 (80-100) fL MCH 26.9 (26-34) PG MCHC 31.9 (30-36) % RDW 17.0 H (11.6-14.8) % Plt Count 146 L (150-400) X10^3/uL Neut % (Auto) 54.0 (50-75) % Lymph % (Auto) 36.0 (25-40) % [place] % (Auto) 8.2 (3-14) % Eos % (Auto) 1.2 L (2-4) % Baso % (Auto) 0.6 (0-2) % Neut # (Auto) 3700 (3146-7865) /uL Lymph # (Auto) 2500 (6552-1862) /uL [place] # (Auto) 600 (0-900) /uL Eos # (Auto) 100 (0-450) /uL Baso # (Auto) 0 (0-100) /uL Sodium 132 L (137-145) mmol/L Potassium 3.8 (3.4-5.1) mmol/L Chloride 91 L (98-107) mmol/L Carbon Dioxide 31 (22-32) mmol/L BUN 34 H (9-20) mg/dL Creatinine 1.26 H (0.66-1.25) mg/dL Estimated GFR 58.8 L (>60) mL/min BUN/Creatinine Ratio 27.0 H (6-22) Glucose 649 H* (70-100) mg/dL Hemoglobin A1c (4.0-6.0) % Lactate (0.7-2.1) mmol/L Calcium 9.4 (8.4-10.2) mg/dL Phosphorus (2.5-4.5) mg/dL Total Bilirubin 0.2 (0.2-1.3) mg/dL AST 20 (17-59) IU/L ALT 18 (<50) IU/L Alkaline Phosphatase 75 (38-126) U/L Total Creatine Kinase 124 (55-170) U/L CK-MB (CK-2) 0.78 (<2.37) ng/mL CK-MB (CK-2) Rel Index 0.6 L (1.5-5.0) % Troponin I < 0.012 (0.01-0.034) ng/mL Total Protein 7.4 (6.3-8.2) g/dL Albumin 4.0 (3.5-5.0) g/dL Globulin 3.4 (1.7-4.1) g/dL Albumin/Globulin Ratio 1.2 (1.0-2.8) Lipase 404 H (23-300) U/L Ketones 0.10 (<0.27) mmol/L 07/12/19 07/12/19 07/12/19 Range/Units 22:25 22:25 22:25 WBC (4.5-11.0) X10^3/uL RBC (4.5-5.9) X10^6/uL Hgb (13.5-17.5) g/dL Hct (41-53) % MCV (80-100) fL MCH (26-34) PG MCHC (30-36) % RDW (11.6-14.8) % Plt Count (150-400) X10^3/uL Neut % (Auto) (50-75) % Lymph % (Auto) (25-40) % [place] % (Auto) (3-14) % Eos % (Auto) (2-4) % Baso % (Auto) (0-2) % Neut # (Auto) (9414-3787) /uL Lymph # (Auto) (9755-7765) /uL [place] # (Auto) (0-900) /uL Eos # (Auto) (0-450) /uL Baso # (Auto) (0-100) /uL Sodium 132 L (137-145) mmol/L Potassium 4.0 (3.4-5.1) mmol/L Chloride 95 L (98-107) mmol/L Carbon Dioxide 32 (22-32) mmol/L BUN 33 H (9-20) mg/dL Creatinine 1.27 H (0.66-1.25) mg/dL Estimated GFR 58.2 L (>60) mL/min BUN/Creatinine Ratio 26.0 H (6-22) Glucose 661 H* (70-100) mg/dL Hemoglobin A1c 11.2 H (4.0-6.0) % Lactate (0.7-2.1) mmol/L Calcium 8.7 (8.4-10.2) mg/dL Phosphorus 3.5 (2.5-4.5) mg/dL Total Bilirubin (0.2-1.3) mg/dL AST (17-59) IU/L ALT (<50) IU/L Alkaline Phosphatase (38-126) U/L Total Creatine Kinase (55-170) U/L CK-MB (CK-2) (<2.37) ng/mL CK-MB (CK-2) Rel Index (1.5-5.0) % Troponin I < 0.012 (0.01-0.034) ng/mL Total Protein (6.3-8.2) g/dL Albumin (3.5-5.0) g/dL Globulin (1.7-4.1) g/dL Albumin/Globulin Ratio (1.0-2.8) Lipase (23-300) U/L Ketones (<0.27) mmol/L 07/12/19 07/13/19 Range/Units 22:25 00:05 WBC (4.5-11.0) X10^3/uL RBC (4.5-5.9) X10^6/uL Hgb (13.5-17.5) g/dL Hct (41-53) % MCV (80-100) fL MCH (26-34) PG MCHC (30-36) % RDW (11.6-14.8) % Plt Count (150-400) X10^3/uL Neut % (Auto) (50-75) % Lymph % (Auto) (25-40) % [place] % (Auto) (3-14) % Eos % (Auto) (2-4) % Baso % (Auto) (0-2) % Neut # (Auto) (4888-6042) /uL Lymph # (Auto) (2517-7874) /uL [place] # (Auto) (0-900) /uL Eos # (Auto) (0-450) /uL Baso # (Auto) (0-100) /uL Sodium 134 L (137-145) mmol/L Potassium 3.9 (3.4-5.1) mmol/L Chloride 97 L (98-107) mmol/L Carbon Dioxide 32 (22-32) mmol/L BUN 32 H (9-20) mg/dL Creatinine 1.26 H (0.66-1.25) mg/dL Estimated GFR 58.8 L (>60) mL/min BUN/Creatinine Ratio 25.4 H (6-22) Glucose 590 H* (70-100) mg/dL Hemoglobin A1c (4.0-6.0) % Lactate 2.3 H (0.7-2.1) mmol/L Calcium 8.5 (8.4-10.2) mg/dL Phosphorus (2.5-4.5) mg/dL Total Bilirubin (0.2-1.3) mg/dL AST (17-59) IU/L ALT (<50) IU/L Alkaline Phosphatase (38-126) U/L Total Creatine Kinase (55-170) U/L CK-MB (CK-2) (<2.37) ng/mL CK-MB (CK-2) Rel Index (1.5-5.0) % Troponin I (0.01-0.034) ng/mL Total Protein (6.3-8.2) g/dL Albumin (3.5-5.0) g/dL Globulin (1.7-4.1) g/dL Albumin/Globulin Ratio (1.0-2.8) Lipase (23-300) U/L Ketones (<0.27) mmol/L MDM Narrative Medical decision making narrative: Patient does have a slightly elevated lipase but patient does NOT have pain in epigastrum and does NOT drink. His creatinine and BG are not improving after fluids and insulin. Patient will require hospital ization for stabilization of his condition. Chest pain is reproduceable, non- exertional and EKG is non-ischemic and unchanged from prior. Troponin x2 unremarkable. Chest pain is thought to be musculoskeletal and related to his attempt to get off the ground when he had his orthostatic near syncope episode Discharge Plan Departure Patient Disposition: Admitted As Inpatient Clinical Impression: Acute hyperglycemia, Atypical chest pain Discharge Date/Time: 07/13/19 01:01 Instructions: DI for Atypical Chest Pain Additional Instructions: *You have been diagnosed with [atypical chest pain, likely chest wall pain and strain from picking yourself up. Your labs and EKG are very reassuring] *What to do: *Take medications as directed *Follow up with your primary care provider in 2-3 days, call for an appointment. Let them know you were seen in the Emergency Department and that we ask that you be seen in follow up *Return to ER if you should have any new, worsening or concerning symptoms Referrals: Sandra Garland [Primary Care Provider] - Admit Date/Time: 07/13/19 00:58 Admit Provider: Patricia Waterman
[2019-07-12 22:00] VITALS: BP 136/59; PULSE 51; O2SAT 95
[2019-07-12 22:30] VITALS: BP 123/59; PULSE 50; RESP 18; O2SAT 98
[2019-07-12 22:49] LABS: Blood Urea Nitrogen 33 mg/dL (9-20); Calcium 8.7 mg/dL (8.4-10.2); Carbon Dioxide 32 mmol/L (22-32); Chloride 95 mmol/L (98-107); Estimated Glomerular Filt Rate 58.2 mL/min (>60); HEMOLYSIS < 15 (0-50); Sodium 132 mmol/L (137-145)
[2019-07-12 23:01] LABS: Glucose 661 mg/dL (70-100); Troponin I < 0.012 ng/mL (0.01-0.034)
[2019-07-12 23:47] VITALS: BP 118/56; PULSE 47; RESP 20; O2SAT 92
[2019-07-13] VITALS (9 sets, daily range): BP systolic 118–142; BP diastolic 58–69; PULSE 48–53; RESP 18–28; TEMP 36.2–37.1; O2SAT 94–97; BMI 42.5
[2019-07-13 00:23] LABS: BUN Creatinine Ratio 25.4 (6-22); Blood Urea Nitrogen 32 mg/dL (9-20); Calcium 8.5 mg/dL (8.4-10.2); Carbon Dioxide 32 mmol/L (22-32); Chloride 97 mmol/L (98-107); Estimated Glomerular Filt Rate 58.8 mL/min (>60); HEMOLYSIS < 15 (0-50); Potassium 3.9 mmol/L (3.4-5.1); Sodium 134 mmol/L (137-145)
[2019-07-13 00:44] LABS: Glucose 590 mg/dL (70-100)
[2019-07-13 01:41] LABS: Lactate (Lactic Acid) 2.3 mmol/L (0.7-2.1)
[2019-07-13 01:45] LABS: Hemoglobin A1C% w Est Avg Glu 11.2 % (4.0-6.0)
[2019-07-13 01:46] LABS: Phosphorous 3.5 mg/dL (2.5-4.5)
--- NOTE | 2019-07-13 02:14 | P.HP_ITS ---
History of Present Illness History of Present Illness Date Patient Seen: 07/13/19 Time Patient Seen: 01:30 Chief complaint: Chest Pain Narrative: Luis E Pierre is a 58-year-old male with a history of diabetes type 2, schizophrenia, tardive dyskinesia, coronary artery disease after having had a 5 way bypass and a recent cardiac catheterization and anticoagulated on rivaroxaban, presented to the ED after is mother called EMS due to a fall he had. He stated he was unable to get up. He does recall that his legs were shaky and essentially gave out under him. At that time he said that he had chest pain that he believes was caused by a clogged artery. Patient does not recall whether not he lost consciousness. Patient states he has been sweaty as I speak to him, denies cough or fever, he has got a dry mouth, is thirsty all the time and states he has been urinating a lot, he has chronic shortness of breath, he has nausea without vomiting, denies diarrhea or constipation, he has sore knees after having fallen on them today, and has schizophrenia which is chronic and longstanding. He states that his diabetes is well controlled with the A1c of around 6.7. Patient History Medical History (Updated 07/13/19 @ 02:49 by GENE Segovia) Acute hyperglycemia (Acute) Atypical chest pain (Acute) CAD (coronary artery disease) (Chronic) Chronic left shoulder pain (Acute) Diabetes type 2, controlled (Chronic) HTN (hypertension) (Chronic) Hyperlipidemia (Chronic) Obstructive sleep apnea of adult (Chronic) Pulmonary embolism (Acute) Schizoaffective disorder (Chronic) Tardive dyskinesia (Acute) Surgical History Hx of CABG (Chronic) Family & Social History Family History Mother Coronary artery disease Father No problems noted. Social History: household members family Prior Living Arrangements House lives independently Yes caregiver/support person Yes Safety & Behavioral: Feels Safe in Current Yes Environment Been Physically Hurt or No Threatened By a Person Suicidal Ideation Description Vague Suicide Plan Description No Plan Tobacco & Substance use: Smoking Status Former smoker alcohol intake never alcohol intake frequency 0-2 drinks per day Substance Use Type does not use Meds Home Medications and Allergies Home Medications Medication Instructions Recorded Confirmed Type metformin [Glucophage XR] 500 mg PO BIDCC #60 tab 12/25/16 06/06/19 History atorvastatin 40 mg PO BEDTIME 10/12/17 06/06/19 History insulin aspart U-100 See Rx Instructions .ROUTE .COMPLEX 10/12/17 06/06/19 History insulin glargine 30 units SUB-Q BEDTIME 10/12/17 06/06/19 History levothyroxine [Synthroid] 75 mcg PO DAILY 10/12/17 06/06/19 History nitroglycerin [Nitrostat] 0.4 mg SUBLINGUAL Q5 MIN PRN PRN 10/12/17 06/06/19 History lisinopril 10 mg tablet 10 mg PO DAILY 02/07/18 06/06/19 History furosemide 40 mg PO DAILY 05/26/18 06/06/19 History hydrochlorothiazide 25 mg PO DAILY 05/26/18 06/06/19 History metoprolol succinate [Toprol XL] 25 mg PO DAILY 05/26/18 06/06/19 History ResMed AirCurve 10 BIPAP #1 ea 06/09/18 06/06/19 History fenofibrate 160 mg tablet 160 mg PO DAILY 12/16/18 06/06/19 History tramadol 50 mg tablet 50 mg PO BID MDD 2 tabs 12/16/18 06/06/19 History omeprazole 20 mg PO DAILY 12/20/18 06/06/19 History Xarelto 20 mg PO QPM 02/16/19 06/06/19 History aspirin 81 mg PO DAILY 02/16/19 06/06/19 History isosorbide mononitrate 60 mg PO DAILY 02/16/19 06/06/19 History gabapentin 300 mg capsule 300 mg PO TID cap 03/17/19 06/06/19 History fluoxetine 40 mg capsule 80 mg PO DAILY #180 cap 04/17/19 06/06/19 Rx divalproex 500 mg tablet,delayed 1,500 mg PO BEDTIME #360 tab 04/21/19 06/06/19 Rx release cholecalciferol (vitamin D3) 5,000 unit PO DAILY 04/25/19 06/06/19 History [Vitamin D3] ziprasidone HCl 80 mg PO BEDTIME 04/25/19 06/06/19 History alprazolam 0.5 mg PO BID PRN 06/06/19 06/06/19 History aripiprazole 45 mg PO DAILY 06/06/19 06/06/19 History doxycycline hyclate 100 mg PO BID #20 cap 06/06/19 Rx insulin NPH isoph U-100 human 60 unit SUBCUT QPM 06/06/19 06/06/19 History [Novolin N NPH U-100 Insulin] lorazepam 1 mg tablet 1 mg PO DAILY PRN #10 tab 06/30/19 06/30/19 Rx Allergies Allergy/AdvReac Type Severity Reaction Status Date / Time Penicillins [PENICILLINS] Allergy Severe Swelling Verified 06/25/19 13:00 of Lip/Tongue/Throat Alluna Sleep AdvReac Severe Difficulty Uncoded 05/30/19 13:21 Swallowing Review of Systems Review of Systems ROS: Yes All systems reviewed with the patient and are negative except as otherwise documented Exam Vital Signs (past 8 hours): - 07/12/19 20:46 07/12/19 21:00 07/12/19 21:30 Temperature 98.5 F Pulse Rate 58 L 53 L 53 L Respiratory Rate 22 Blood Pressure 132/63 Blood Pressure [Left Arm] 131/60 131/62 Pulse Oximetry 95 97 96 07/12/19 22:00 07/12/19 22:30 07/12/19 23:47 Temperature Pulse Rate 51 L 50 L 47 L Respiratory Rate 18 20 Blood Pressure Blood Pressure [Left Arm] 136/59 L 123/59 L 118/56 L Pulse Oximetry 95 98 92 07/13/19 01:20 07/13/19 01:30 Temperature 97.2 F L Pulse Rate 52 L Respiratory Rate 28 H Blood Pressure 142/69 H Blood Pressure [Left Arm] Pulse Oximetry 97 94 Oxygen Delivery Method Room Air Narrative Exam Narrative: Gen: Alert, oriented, well-developed 58 y.o. male, lethargic HEENT: normocephalic, atraumatic, conjunctiva clear, sclera non-icteric, oral mucosa appear dry Neck: supple, full ROM, no JVD Resp: Lungs CTA, non-labored breathing Chest: Pain in the mid epigastric area bilateral and reproducible with pressure CV: RRR, no murmur or rubs Abd: soft, non-tender, normoactive BTs Skin: no lesions or rashes, dry and intact Neuro: Alert and oriented X 4 w/no focal deficits Extremities: moves all 4 extremities, is ambulatory, negative Aron?s sign Psyche: normal mood and affect. Objective Labs Result Diagrams: 07/12/19 20:35 07/13/19 00:05 Labs: Laboratory Results - last 24 hr 07/12/19 07/12/19 07/12/19 02:22 20:35 20:35 WBC 6.9 RBC 4.37 L Hgb 11.8 L Hct 36.9 L MCV 84.3 MCH 26.9 MCHC 31.9 RDW 17.0 H Plt Count 146 L Neut % (Auto) 54.0 Lymph % (Auto) 36.0 [place] % (Auto) 8.2 Eos % (Auto) 1.2 L Baso % (Auto) 0.6 Neut # (Auto) 3700 Lymph # (Auto) 2500 [place] # (Auto) 600 Eos # (Auto) 100 Baso # (Auto) 0 Sodium 132 L Potassium 3.8 Chloride 91 L Carbon Dioxide 31 BUN 34 H Creatinine 1.26 H Estimated GFR 58.8 L BUN/Creatinine Ratio 27.0 H Glucose 649 H* Hemoglobin A1c Lactate Calcium 9.4 Phosphorus Total Bilirubin 0.2 AST 20 ALT 18 Alkaline Phosphatase 75 Total Creatine Kinase 124 CK-MB (CK-2) 0.78 CK-MB (CK-2) Rel Index 0.6 L Troponin I < 0.012 Total Protein 7.4 Albumin 4.0 Globulin 3.4 Albumin/Globulin Ratio 1.2 Lipase 404 H Ketones 0.10 07/12/19 07/12/19 07/12/19 22:25 22:25 22:25 WBC RBC Hgb Hct MCV MCH MCHC RDW Plt Count Neut % (Auto) Lymph % (Auto) [place] % (Auto) Eos % (Auto) Baso % (Auto) Neut # (Auto) Lymph # (Auto) [place] # (Auto) Eos # (Auto) Baso # (Auto) Sodium 132 L Potassium 4.0 Chloride 95 L Carbon Dioxide 32 BUN 33 H Creatinine 1.27 H Estimated GFR 58.2 L BUN/Creatinine Ratio 26.0 H Glucose 661 H* Hemoglobin A1c 11.2 H Lactate Calcium 8.7 Phosphorus 3.5 Total Bilirubin AST ALT Alkaline Phosphatase Total Creatine Kinase CK-MB (CK-2) CK-MB (CK-2) Rel Index Troponin I < 0.012 Total Protein Albumin Globulin Albumin/Globulin Ratio Lipase Ketones 07/12/19 07/13/19 22:25 00:05 WBC RBC Hgb Hct MCV MCH MCHC RDW Plt Count Neut % (Auto) Lymph % (Auto) [place] % (Auto) Eos % (Auto) Baso % (Auto) Neut # (Auto) Lymph # (Auto) [place] # (Auto) Eos # (Auto) Baso # (Auto) Sodium 134 L Potassium 3.9 Chloride 97 L Carbon Dioxide 32 BUN 32 H Creatinine 1.26 H Estimated GFR 58.8 L BUN/Creatinine Ratio 25.4 H Glucose 590 H* Hemoglobin A1c Lactate 2.3 H Calcium 8.5 Phosphorus Total Bilirubin AST ALT Alkaline Phosphatase Total Creatine Kinase CK-MB (CK-2) CK-MB (CK-2) Rel Index Troponin I Total Protein Albumin Globulin Albumin/Globulin Ratio Lipase Ketones Assessment & Plan Assessment & Plan narrative: Luis E Pierre will be admitted as an ICU patient due to the necessity of administering an insulin drip. Severe hyperglycemia, present on admission with an A1c of 11.2 -blood glucose on presentation to the ED was 641, after administering 10 units of regular insulin, it increased to 661 -Glucose check upon arrival to the floor was 590 -prior A1c in February 2019 was 6.5 -he will be started on an insulin drip goal glucose of 200 -oral antidiabetics and home insulin are being held -He will need to have his insulin regimen reviewed and adjusted accordingly -Question if he has been administering his insulin Syncopal vs presyncopal episode, acute and present on admission -question if associated with tardive dyskinesia mentioned in his psychiatrist's report (see chart) -possible psychiatric polypharmacy, he has been having his psychiatric medica tions adjusted Atypical chest pain, acute, present on admission -patient had a cardiac cath one month ago -obtain records regarding such and notify his second language tutor of his admission Coronary artery disease, stable and present on admission -Continue home dose of ASA 81 mg daily, isosorbide monopnitrate 60 mg po daily, and metoprolol succinate 25 mg po daily Hyperlipidemia, chronic and present on admission -Continue home dose of atorvastatin 40 mg po daily and fenofibrate 160 mg daily Hx of PE -Continue home dose of rivaroxaban 20 mg po qpm Hypothyroidism, chronic and stable -Continue home dose of levothyroxine 75 mcg daily FEN: NS at 75 ml/hour, NPO, chemistries in the am Patient is admitted inpatient his stay is not likely to exceed 2 midnights. VTE Prophylaxis: Bilateral SCDs, Medications reconciled: yes Disposition: probable discharge to home Code Status: Full code Quality VTE Deep Vein Thrombosis/Pulmonary Embolism Present on Admission: No
[2019-07-13] MEDS: INSULIN REGULAR, HUMAN 100 UNIT in SODIUM CHLORIDE 0.9% 100 ML 6 ML IV (02:20)
[2019-07-13] MEDS: SODIUM CHLORIDE 0.9% 1,000 ML 150 ML IV (02:21)
--- NOTE | 2019-07-13 02:31 | PC.NURSE ---
NOC Note: Pt arrived at 0120, was able to shift from stretcher to the bed. LCTA, BT x4, PP++, pt reports sore knees, chest pressure 5/10 and mild nausea. He has request to use the urinal due to the fall at home. No skin issues noted. IV in right hand is patient with IVF and insulin gtt running as ordered. Pt is NPO, SCD's and tele in place.
[2019-07-13 03:26] LABS: Reflexed Lactate in 2 Hours Y
[2019-07-13 04:48] LABS: Add Manual Diff / Slide Review NO; Basophils Absolute Auto 0 /uL (0-100); Basophils Percent Auto 0.8 % (0-2); Eosinophils Absolute Auto 100 /uL (0-450); Eosinophils Percent Auto 1.7 % (2-4); Hematocrit 33.7 % (41-53); Hemoglobin 11.1 g/dL (13.5-17.5); Lymphocytes Absolute Auto 3000 /uL (1100-4500); Lymphocytes Percent Auto 48.7 % (25-40); Mean Corpuscular HGB Conc 32.9 % (30-36); Mean Corpuscular Hemoglobin 27.1 PG (26-34); Mean Corpuscular Volume 82.5 fL (80-100); Monocytes Absolute Auto 500 /uL (0-900); Monocytes Percent Auto 7.9 % (3-14); Neutrophils Absolute Auto 2600 /uL (1500-7000); Neutrophils Percent Auto 40.9 % (50-75); Platelet Count 135 X10^3/uL (150-400); Red Blood Cell Count 4.09 X10^6/uL (4.5-5.9); Red Cell Distribution Width 16.7 % (11.6-14.8); White Blood Cell Count 6.3 X10^3/uL (4.5-11.0)
[2019-07-13 04:52] LABS: Alanine Aminotransferase 13 IU/L (<50); Albumin 3.5 g/dL (3.5-5.0); Albumin Globulin Ratio 1.1 (1.0-2.8); Alkaline Phosphatase 61 U/L (38-126); Aspartate Aminotransferase 17 IU/L (17-59); BUN Creatinine Ratio 28.6 (6-22); Bilirubin Total 0.2 mg/dL (0.2-1.3); Blood Urea Nitrogen 30 mg/dL (9-20); Calcium 8.8 mg/dL (8.4-10.2); Carbon Dioxide 30 mmol/L (22-32); Chloride 103 mmol/L (98-107); Estimated Glomerular Filt Rate > 60.0 mL/min (>60); Globulin 3.2 g/dL (1.7-4.1); Glucose 260 mg/dL (70-100); HEMOLYSIS < 15 (0-50); Potassium 3.4 mmol/L (3.4-5.1); Sodium 139 mmol/L (137-145); Total Protein 6.7 g/dL (6.3-8.2)
[2019-07-13 04:53] LABS: Lactate 2HR (Lactic Acid Rflx) 1.1 mmol/L (0.7-2.1)
[2019-07-13] MEDS: NITROGLYCERIN 0.4 MG SL TAB SL (05:11)
[2019-07-13] MEDS: MORPHINE 2 MG/ML INJ IV (05:34)
[2019-07-13 07:02] LABS: Lipase 117 U/L (23-300)
--- NOTE | 2019-07-13 08:29 | CM.DANOTE ---
DCP: Case received, EMR reviewed and met with patient. Introduced self and role. Was able to meet with patient to obtain information regarding his baseline health, activity level, and living situation. DCP assessment completed with information currently available. Patient is a 58 year old male who admitted early this morning to the care of the hospitalist team. PCP: Dr. Garland at [facility]. Payer: confirmed: [place] [employer]. Patient came to the hospital via ambulance secondary to fall secondary to chest pain and weakness. Patient has history of diabetes, and had an A1C of 11.2. Patient also has history of cardiac bypass, and was recently at [facility] for a heart cath. Patient also sees a psychiatrist, secondary to his history of schitzophrenia. He is currently in the ICU on an insulin drip. Met with patient in his room. Pleasant, alert and oriented. He was laying in his bed. Discussed his current living situation, and he mentioned that he is his parent's primary caregiver. Patient indicated that he drives, uses no DME supplies. Confirmed that his PCP is at [facility]. Patient stated that he was in the [employer] for 6 years, and is not disabled. P: DCP to continue to follow closely. May need PT to see him before discharge home. Will discuss at team rounds. Kath Sifuentes RN/Children'S Librarian
[2019-07-13] MEDS: INSULIN GLARGINE 100 UNIT/ML 3ML PEN 30 UNIT SUBCUT (09:29)
[2019-07-13] MEDS: LEVOTHYROXINE 75 MCG TABLET PO (09:32)
[2019-07-13] MEDS: FLUoxetine 20 MG CAPSULE 80 MG PO (09:36)
[2019-07-13] MEDS: GABAPENTIN 300 MG CAPSULE PO (09:36)
[2019-07-13] MEDS: ASPIRIN EC 81 MG TABLET PO (09:36)
[2019-07-13] MEDS: ARIPiprazole 10 MG TABLET 45 MG PO (09:36)
[2019-07-13] MEDS: hydroCHLOROthiazide 25 MG TABLET PO (09:37)
[2019-07-13] MEDS: TRAMADOL 50 MG TABLET PO (09:37)
[2019-07-13] MEDS: FENOFIBRATE 160 MG TABLET PO (09:37)
[2019-07-13] MEDS: ISOSORBIDE MONONITRATE ER 60 MG PO (09:37)
[2019-07-13] MEDS: lisinopriL 10 MG TABLET PO (09:37)
[2019-07-13] MEDS: METFORMIN XR 500 MG TABLET PO (09:41)
[2019-07-13] MEDS: PANTOPRAZOLE 20 MG TABLET PO (09:42)
[2019-07-13] MEDS: DIVALPROEX DR 250 MG TABLET 500 MG PO (09:55)
[2019-07-13] MEDS: INSULIN ASPART 100 UNIT/ML INSULN PEN 20 UNIT SUBCUT (10:33)
[2019-07-13] MEDS: ONDANSETRON 4 MG/2 ML INJ IV (11:20)
[2019-07-13] MEDS: INSULIN ASPART 100 UNIT/ML INSULN PEN 25 UNIT SUBCUT (13:11)
--- NOTE | 2019-07-13 13:59 | PT.IPTN ---
Current Diagnoses Type 2 diabetes mellitus with hyperglycemia (07/13/19) Physical Therapy Treatment Note M2 PT-IP Current Condition Start: 07/13/19 13:14 Freq: NEEDED Status: Active Protocol: Document 07/13/19 13:14 [facility] (Rec: 07/13/19 13:58 [facility] [id number]) Physical Therapy Current Condition Current Condition Evaluation Date 07/13/19 Treatment Diagnosis chest pain , diabetes Onset Date 07/12/19 Weight Bearing Status Weight Bearing Status Full Weight Bearing M3 PT-IP Subjective Start: 07/13/19 13:14 Freq: NEEDED Status: Active Protocol: Document 07/13/19 13:14 [facility] (Rec: 07/13/19 13:58 [facility] [id number]) Subjective Physical Therapy Visit Type Type Initial Evaluation Visit Start Time 11:00 Visit Stop Time 11:30 Total Visit Minutes 30 Physical Therapy Visit Comments Patient Comments pt reports agrees to PT, he does report feeling a little dizzy and SOB Patient Goals Pt's goals are to return home Therapy Pain Assessment Pain Present Pain Present Pain Reported Location chest Intensity 4 Scale Used Numeric (1 - 10) M4 PT-IP Mobility and Gait Start: 07/13/19 13:14 Freq: NEEDED Status: Active Protocol: Document 07/13/19 13:14 [facility] (Rec: 07/13/19 13:58 [facility] [id number]) PT-Bed Mobility Assessment Rolling Type of Rolling Bilateral Level of Assist Independent Supine to Sit Supine to Sit Independent Sit to Supine Sit to Supine Independent Scooting Scooting to Edge of Bed Standby Assistance PT-Transfer Assessment Sit to and From Stand Sit to and from Stand Standby Assistance Equipment Transfer Assistive Device Front Wheeled Walker Orthotic/Prosthetic Devices or Brace: No Transfers Transfer Destination Toilet Transfer Technique Stand Step Pivot Transfer Ability Level of Assist Standby Assistance Comments Mobility Comments pt demonstrated that he is able to DC home mobility light. I did have him use a walker just because he felt a little light headed. Luis E reports he has a walker at home he can use as well if he is still feeling light headed. He was IND for all bed mobility and was SBA for ambulation. Pt demonstrated good standing balance. Gait Assessment Gait Gait Assistance Required: Standby Assistance Able to Maintain Weight Bearing Status Yes During Gait Assistive Devices Assistive Device Gait Belt,4 Wheeled Walker Orthotic/Prosthetic Devices or Brace: No Comments Gait Comments Pt amublated well with SBA only just because he had mentioned that he had felt dizzy. He ambulated well and I gave him the fww for support again because he had mentioned he felt dizzy. He actually noted he felt better after standing and using the bathroom. PT-Balance Assessment Sitting Balance and Reactions Static Sitting Balance Ability Normal Dynamic Sitting Balance Ability Normal Standing Balance and Reactions Static Standing Balance Ability Good Dynamic Standing Balance Ability Good M5 PT-IP Objective Assessments Start: 07/13/19 13:14 Freq: NEEDED Status: Active Protocol: Document 07/13/19 13:14 [facility] (Rec: 07/13/19 13:58 [facility] [id number]) Gross Range of Motion Upper Extremity ROM Assessment Within Functional Limits Lower Extremity ROM Assessment Within Functional Limits Strength Upper Extremity Strength Assessment Within Functional Limits Lower Extremity Strength Assessment Within Functional Limits Coordination Assessment Gross Coordination Gross Coordination WNL Sensation Assessment Sensation Gross Sensation WNL Muscle Tone Muscle Tone WNL Yes M6 PT-IP Treatment Start: 07/13/19 13:14 Freq: NEEDED Status: Active Protocol: Document 07/13/19 13:58 [facility] (Rec: 07/13/19 13:59 [facility] [id number]) Physical Therapy Treatment Education Education Provided Safety M7 PT-IP Assessment and Plan Start: 07/13/19 13:14 Freq: NEEDED Status: Active Protocol: Document 07/13/19 13:14 [facility] (Rec: 07/13/19 13:58 [facility] [id number]) PT Summary Assessment and Plan Summary Assessment Summary The patient is cleared by PT for mobility for return to home. He does have a walker at home and was instructed to use it if he still felt dizzy. Discharge Recommendations PT Discharge Recommendations Home
--- NOTE | 2019-07-13 14:09 | PM.DS.1 ---
History of Present Illness History of Present Illness Date Patient Seen: 07/13/19 Chief complaint: Chest Pain Narrative: Written by Alida MILLS: Luis E Pierre is a 58-year-old male with a history of diabetes type 2, schizophrenia, tardive dyskinesia, coronary artery disease after having had a 5 way bypass and a recent cardiac catheterization and anticoagulated on rivaroxaban, presented to the ED after is mother called EMS due to a fall he had. He stated he was unable to get up. He does recall that his legs were shaky and essentially gave out under him. At that time he said that he had chest pain that he believes was caused by a clogged artery. Patient does not recall whether not he lost consciousness. Patient states he has been sweaty as I speak to him, denies cough or fever, he has got a dry mouth, is thirsty all the time and states he has been urinating a lot, he has chronic shortness of breath, he has nausea without vomiting, denies diarrhea or constipation, he has sore knees after having fallen on them today, and has schizophrenia which is chronic and longstanding. He states that his diabetes is well controlled with the A1c of around 6.7. Discharge Providers Provider Date of admission: 07/13/19 00:58 Discharge Date: 07/13/19 Primary care physician: Sandra Garland Consults: 07/13/19 09:00 Consult to Physical Therapy Evaluate & Treat Comment: Physician Instructions: Evaluate and Treat 07/13/19 13:50 Consult to Dietitian, Adult Routine Comment: Reason For Exam: diabetic diet teaching please Discharge provider: Cristal Rincon DO Summary Hospital Course Discharge Diagnosis: 1. Acute hyperglycemia, present on admission. Improved. 2. Ground level fall, acute, present on admission. Resolved. 3. Atypical chest pain, chronic, present on admission. Stable. 4. Coronary artery disease and hyperlipidemia, chronic, present on admission. Stable. 6. History of pulmonary embolism. 7. Hypothyroidism, chronic, present on admission. Stable. Hospital Course: Luis E Pierre is a 58-year-old male with a past medical history significant for diabetes mellitus type 2, insulin using, schizophrenia, tardive dyskinesia, hyperlipidemia, coronary artery disease status post CABG x5 vessels, recent cardiac catheterization and anticoagulated on rivaroxaban who presented to the ED via EMS after ground level fall. 1. Acute hyperglycemia, present on admission. Improved. -Hemoglobin A1c 11.2%. Patient previously had hemoglobin A1c of 6.5% in 02/2019 at which time he reports he was on Lantus 50 units twice daily. Patient is unsure of why his basal insulin was lowered so substantially. -Initial blood glucose on presentation to the ED was 641. Received regular insulin 10 units subcu x1 and was started on insulin gtt. Insulin gtt was slowly titrated off and patient was started on Lantus 30 units twice daily and prandial insulin with NovoLog 20 units with breakfast, 25 units with lunch, and 30 units with dinner. -Restarted metformin 500 mg twice daily at time of discharge. -Continued carbohydrate/heart healthy diet. -Recommended close outpatient follow-up with PCP and family educator. 2. Ground level fall, acute, present on admission. Resolved. -Likely secondary to hyperglycemia versus associated with tardive dyskinesia mentioned in his psychiatrist's report (see chart, versus psychiatric polypharmacy as he has been having his psychiatric medications adjusted. -Consulted physical therapy for evaluation treatment. Patient was discharged home with no needs. 3. Atypical chest pain, chronic, present on admission. Stable. -Patient had a cardiac catheterization performed 1 month ago which did not show any obstructive disease. -Continue tramadol 50 mg every 6 hours as needed for musculoskeletal pain. 4. Coronary artery disease and hyperlipidemia, chronic, present on admission. Stable. -Continue home dose of aspirin 81 mg daily, atorvastatin 40 mg daily, fenofibrate 160 mg daily, isosorbide monopnitrate 60 mg daily, and metoprolol succinate 25 mg daily. 6. History of pulmonary embolism. -Continue home dose of rivaroxaban 20 mg daily in the evening. 7. Hypothyroidism, chronic, present on admission. Stable. -Continue home levothyroxine 75 mcg daily. Exam Vital Signs (past 8 hours): - 07/13/19 07:30 07/13/19 08:15 07/13/19 11:15 Temperature 98.7 F 98.8 F Pulse Rate 51 L 50 L Pulse Rate [Orthostatic Lying] Pulse Rate [Orthostatic Sitting] Pulse Rate [Orthostatic Standing] Respiratory Rate 21 23 Blood Pressure 124/61 118/58 L Blood Pressure [Orthostatic Lying] Blood Pressure [Orthostatic Sitting] Blood Pressure [Orthostatic Standing] Pulse Oximetry 95 94 94 07/13/19 12:42 Temperature Pulse Rate Pulse Rate [Orthostatic Lying] 50 L Pulse Rate [Orthostatic Sitting] 50 L Pulse Rate [Orthostatic Standing] 53 L Respiratory Rate Blood Pressure Blood Pressure [Orthostatic Lying] 118/58 L Blood Pressure [Orthostatic Sitting] 124/59 L Blood Pressure [Orthostatic Standing] 131/63 Pulse Oximetry Oxygen Delivery Method Room Air Oxygen Flow Rate 0 Narrative Exam Narrative: General: Older gentleman sitting in bed and in no acute distress, appears older than stated age, well-developed, well-nourished, appropriately interactive HEENT: Normocephalic, atraumatic. External ears without defect. Pupils equal, round, and reactive to light. Anicteric sclerae, moist conjunctivae, and no lid lag. Oropharynx free of erythema and cobble stoning with moist mucosa. Neck: Supple with full range of motion. No jugular venous distension. No bruits. No lymphadenopathy or thyromegaly. Cardiovascular: Regular rate and rhythm without murmurs, rubs, or gallops appreciated. Pulmonary: Clear to auscultation bilaterally without crackles, wheezes, or rhonchi. Normal respiratory effort with no use of accessory muscles. Abdomen: Soft, obese, bowel sounds present, nontender, nondistended. No hepatosplenomegaly or masses appreciated. Extremities: No clubbing, cyanosis, or edema. Skin: Normal temperature, turgor, and texture; no rash, ulcers, or subcutaneous nodules appreciated. Neurological: Cranial nerves grossly intact. Psychiatric: Normal mood and affect. Alert and oriented to person, place, and time. Objective Labs Result Diagrams: 07/13/19 04:30 07/13/19 04:30 Labs: Laboratory Results - last 24 hr 07/12/19 07/12/19 07/12/19 02:22 20:35 20:35 WBC 6.9 RBC 4.37 L Hgb 11.8 L Hct 36.9 L MCV 84.3 MCH 26.9 MCHC 31.9 RDW 17.0 H Plt Count 146 L Neut % (Auto) 54.0 Lymph % (Auto) 36.0 [place] % (Auto) 8.2 Eos % (Auto) 1.2 L Baso % (Auto) 0.6 Neut # (Auto) 3700 Lymph # (Auto) 2500 [place] # (Auto) 600 Eos # (Auto) 100 Baso # (Auto) 0 Sodium 132 L Potassium 3.8 Chloride 91 L Carbon Dioxide 31 BUN 34 H Creatinine 1.26 H Estimated GFR 58.8 L BUN/Creatinine Ratio 27.0 H Glucose 649 H* Hemoglobin A1c Lactate Calcium 9.4 Phosphorus Total Bilirubin 0.2 AST 20 ALT 18 Alkaline Phosphatase 75 Total Creatine Kinase 124 CK-MB (CK-2) 0.78 CK-MB (CK-2) Rel Index 0.6 L Troponin I < 0.012 Total Protein 7.4 Albumin 4.0 Globulin 3.4 Albumin/Globulin Ratio 1.2 Lipase 404 H Nasal Screen MRSA (PCR) Ketones 0.10 07/12/19 07/12/19 07/12/19 22:25 22:25 22:25 WBC RBC Hgb Hct MCV MCH MCHC RDW Plt Count Neut % (Auto) Lymph % (Auto) [place] % (Auto) Eos % (Auto) Baso % (Auto) Neut # (Auto) Lymph # (Auto) [place] # (Auto) Eos # (Auto) Baso # (Auto) Sodium 132 L Potassium 4.0 Chloride 95 L Carbon Dioxide 32 BUN 33 H Creatinine 1.27 H Estimated GFR 58.2 L BUN/Creatinine Ratio 26.0 H Glucose 661 H* Hemoglobin A1c 11.2 H Lactate Calcium 8.7 Phosphorus 3.5 Total Bilirubin AST ALT Alkaline Phosphatase Total Creatine Kinase CK-MB (CK-2) CK-MB (CK-2) Rel Index Troponin I < 0.012 Total Protein Albumin Globulin Albumin/Globulin Ratio Lipase Nasal Screen MRSA (PCR) Ketones 07/12/19 07/13/19 07/13/19 22:25 00:05 01:15 WBC RBC Hgb Hct MCV MCH MCHC RDW Plt Count Neut % (Auto) Lymph % (Auto) [place] % (Auto) Eos % (Auto) Baso % (Auto) Neut # (Auto) Lymph # (Auto) [place] # (Auto) Eos # (Auto) Baso # (Auto) Sodium 134 L Potassium 3.9 Chloride 97 L Carbon Dioxide 32 BUN 32 H Creatinine 1.26 H Estimated GFR 58.8 L BUN/Creatinine Ratio 25.4 H Glucose 590 H* Hemoglobin A1c Lactate 2.3 H Calcium 8.5 Phosphorus Total Bilirubin AST ALT Alkaline Phosphatase Total Creatine Kinase CK-MB (CK-2) CK-MB (CK-2) Rel Index Troponin I Total Protein Albumin Globulin Albumin/Globulin Ratio Lipase Nasal Screen MRSA (PCR) Negative for mrsa Ketones 07/13/19 07/13/19 07/13/19 04:30 04:30 04:30 WBC 6.3 RBC 4.09 L Hgb 11.1 L Hct 33.7 L MCV 82.5 MCH 27.1 MCHC 32.9 RDW 16.7 H Plt Count 135 L Neut % (Auto) 40.9 L Lymph % (Auto) 48.7 H [place] % (Auto) 7.9 Eos % (Auto) 1.7 L Baso % (Auto) 0.8 Neut # (Auto) 2600 Lymph # (Auto) 3000 [place] # (Auto) 500 Eos # (Auto) 100 Baso # (Auto) 0 Sodium 139 Potassium 3.4 Chloride 103 Carbon Dioxide 30 BUN 30 H Creatinine 1.05 Estimated GFR > 60.0 BUN/Creatinine Ratio 28.6 H Glucose 260 H D Hemoglobin A1c Lactate 1.1 Calcium 8.8 Phosphorus Total Bilirubin 0.2 AST 17 ALT 13 Alkaline Phosphatase 61 Total Creatine Kinase CK-MB (CK-2) CK-MB (CK-2) Rel Index Troponin I Total Protein 6.7 Albumin 3.5 Globulin 3.2 Albumin/Globulin Ratio 1.1 Lipase Nasal Screen MRSA (PCR) Ketones 07/13/19 04:30 WBC RBC Hgb Hct MCV MCH MCHC RDW Plt Count Neut % (Auto) Lymph % (Auto) [place] % (Auto) Eos % (Auto) Baso % (Auto) Neut # (Auto) Lymph # (Auto) [place] # (Auto) Eos # (Auto) Baso # (Auto) Sodium Potassium Chloride Carbon Dioxide BUN Creatinine Estimated GFR BUN/Creatinine Ratio Glucose Hemoglobin A1c Lactate Calcium Phosphorus Total Bilirubin AST ALT Alkaline Phosphatase Total Creatine Kinase CK-MB (CK-2) CK-MB (CK-2) Rel Index Troponin I Total Protein Albumin Globulin Albumin/Globulin Ratio Lipase 117 D Nasal Screen MRSA (PCR) Ketones Discharge Plan Discharge Plan Patient Disposition: Home Discharge comment: You are being discharged home. You were admitted for high blood sugar. Your hemoglobin A1c was 11.2 % which is an average blood sugar of 250-300 at all times. It is unclear why your Lantus dose was decreased so drastically from 50 units twice daily to 30 units at bedtime. Your Lantus dose was increased to 30 units twice daily. Please continue your mealtime insulin as previously prescribed. Please keep track of your blood glucose and keep a log of your measurements to take to your appointments. Please check your blood sugars 4 times a day including: fasting (nothing to eat or drink) and 3 measurements 2 hours after meals (breakfast, lunch, and dinner) and keep them in a log and take this log with you to all of your doctors appointments. You were provided a handout on hypoglycemic emergencies and a prescription for glucose tabs to take if you were to have an hypoglycemic episode. Please follow-up at your scheduled appointment with your PCP, Dr. Garland, and discuss your hospitalization and change in insulin regimen. Highly recommend continued diabetic education regarding diabetic management and diet control. Also recommend the book The Diabetic Solution written by: Ric Patrick M.D. which discusses controlling diabetes with diet. Discharge orders & Medications Prescriptions: New glucose 4 gram tablet,chewable 4 gram PO Q15M PRN (Reason: hypoglycemia) Qty: 20 RF: 0 Continued lisinopril 10 mg tablet 10 mg PO DAILY RF: 0 gabapentin 300 mg capsule 600 mg PO TID RF: 0 fenofibrate 160 mg tablet 160 mg PO DAILY RF: 0 tramadol 50 mg tablet 50 mg PO BID MDD 2 tabs PRN (Reason: Pain (Scale Score 4-6)) RF: 0 metformin [Glucophage XR] 500 MG tablet extended release 24 hr 500 mg PO BIDCC Qty: 60 RF: 0 fluoxetine 40 mg capsule 80 mg PO DAILY Qty: 180 RF: 3 divalproex [Depakote] 500 mg tablet,delayed release (DR/EC) 1,500 mg PO BEDTIME Qty: 360 RF: 0 nitroglycerin [Nitrostat] 0.4 mg Tablet, Sublingual 0.4 mg Sublingual Q5 MIN PRN PRN (Reason: Chest Pain) RF: 0 atorvastatin 40 mg Tablet 40 mg PO BEDTIME RF: 0 levothyroxine [Synthroid] 75 mcg Tablet 75 mcg PO DAILY RF: 0 insulin aspart U-100 100 unit/mL Insulin Pen See Rx Instructions .ROUTE .COMPLEX RF: 0 aspirin 81 mg Tablet,Delayed Release (Dr/Ec) 81 mg PO DAILY RF: 0 isosorbide mononitrate 60 mg Tablet Extended Release 24 Hr 60 mg PO DAILY RF: 0 Xarelto 20 mg Tablet 20 mg PO QPM RF: 0 cholecalciferol (vitamin D3) [Vitamin D3] 5,000 unit Tablet 5,000 unit PO DAILY RF: 0 ziprasidone HCl 80 mg capsule 80 mg PO BEDTIME RF: 0 hydrochlorothiazide 25 mg Tablet 25 mg PO DAILY RF: 0 metoprolol succinate [Toprol XL] 25 MG tablet extended release 24 hr 25 mg PO BID RF: 0 omeprazole 20 mg Capsule,Delayed Release(Dr/Ec) 20 mg PO DAILY RF: 0 alprazolam 0.5 mg Tablet 0.5 mg PO BID PRN (Reason: Anxiety) RF: 0 aripiprazole 30 mg Tablet 45 mg PO DAILY RF: 0 divalproex 500 mg Tablet Extended Release 24 Hr 500 mg PO QAM RF: 0 (DME) ResMed AirCurve 10 BIPAP Qty: 1 RF: 0 Changed insulin glargine 100 unit/mL (3 mL) Insulin Pen 30 unit Sub-Q BID Qty: 15 RF: 0 No Action lorazepam 1 mg tablet 1 mg PO DAILY PRN (Reason: agitation) Qty: 10 RF: 0 Follow up/Referrals: Sandra Garland [Primary Care Provider] - 07/18/19 Diet/Activity/Treatments Diet: Carb-consistent/Diabetic, Low-fat, Low-sodium and Low-cholesterol Activity: Activity as tolerated. Please use a forward wheeled walker if you feel shaky. Visit Report/Discharge Packet Instructions: 'Diet Plate' May Help People With Diabetes Lose Weight, Diabetes and Cardiovascular Disease: What's the Link?, Complications of Type 2 Diabetes, The Mediterranean Diet and Good Health, Reducing Your Risk of Heart Disease When You Have Diabetes, Glycosylated Hemoglobin Test, DI for Atypical Chest Pain, DI for Hypoglycemia Discharge Data Primary Care Provider: Sandra Garland Attending Provider: Patricia Waterman Admit Date/Time: 07/13/19 00:58 Discharges patient from system. Discharge Date/Time: 07/13/19 15:05 Quality VTE Deep Vein Thrombosis/Pulmonary Embolism Present on Admission: No
--- NOTE | 2019-07-13 14:42 | DIET.PN ---
Dietary Progress Note Assessment: 58y M c hx of diabetes type 2, schizophrenia, tardive dyskinesia, coronary artery disease after having had a 5 way bypass and a recent cardiac catheterization and anticoagulated on rivaroxaban admitted after fall. BG on admit 661 H. Pt reports receiving DM management at [facility], last A1c was <7, he remarked his PCP was proud of him. Reports taking meformin 500mg bid, switched from 50U insulin bid to once daily three months ago as he was waking up in 40s. 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 Dinner at home last night was steak, cottage cheese, dinner roll, and whole milk. Due to Stay Home, Stay Safe state mandate, pt has been drinking cranberry grape juice which had been stored in house for several years. He has been experiencing increased thirst and urination for several weeks. HT: 185.4cm WT: 146kg BMI: 42.5 Labs: Admit BG 661 H, A1c 11.2 H, lactate 11.2 H MNA: 14 Hugo: 23 Nutrition Diagnosis: Altered nutrition related laboratory values (A1c, BG) r/t undesirable food choices and endocrine impairment aeb pt reporting drinking juice, presence of polydypsia and polyurea, recent reduction of insulin dosage c associated hyperglycemia (661 on admit) and high A1c (11.2). Interventions: 1. Reinforced pt's prior work to reduce A1c from 11s to 6s. Discussed importance of continuous glucose control and problem solved potential causes of current state. 2. Encouraged pt to donate unopened juice to [employer], pt agrees. 3. Reinforced importance of diabetic diet and refreshed on principles including CHO content of a variety of foods using handout which pt will take home and share c his mother who cooks. 4. Encouraged pt to f/u c PCP regarding changes to DM meds to fine tune for better coverage. Diet Order: CCD
== END 2019-07-13 15:05 | disposition home or self-care (01) ==
LOC: ED 07-13 00:58 → ICU 07-13 07:08 → AC 07-13 11:10
PROVIDERS: Admitting Provider Nurse Practitioner Family; Emergency Provider Emergency Medicine; PCP Family Medicine; Referring Provider Emergency Medicine; Visit Provider Nurse Practitioner Family
DX: E11.65 Type 2 diabetes mellitus with hyperglycemia (principal); R07.89 Other chest pain; R55 Syncope and collapse; G24.01 Drug induced subacute dyskinesia; F25.9 Schizoaffective disorder, unspecified; I25.10 Atherosclerotic heart disease of native coronary artery without angina pectoris; I10 Essential (primary) hypertension; E78.5 Hyperlipidemia, unspecified; E03.9 Hypothyroidism, unspecified; Z86.711 Personal history of pulmonary embolism; Z79.4 Long term (current) use of insulin; Z95.1 Presence of aortocoronary bypass graft
CPT/HCPCS: 36415; 71045; 80048; 80053; 82009; 82550; 82553; 82962; 83036; 83605; 83690; 84100; 84484; 85025; 87797; 93005; 96361; 96365; 96366; 96372; 96375; 97162; 99284; G0378; J1885; J2270; J2405

== ENCOUNTER → 2019-08-15 08:48 | Outpatient (CLI) | payer OTHER, SELFPAY ==
[2019-07-13 01:30] VITALS: BMI 42.5
[2019-08-15 23:39] LABS: Valproic Acid (Depakene) Total 84 ug/mL (50-100)
== END ==
PROVIDERS: PCP Family Medicine; Referring Provider Psychiatry & Neurology Psychiatry; Visit Provider Psychiatry & Neurology Psychiatry
DX: Z51.81 Encounter for therapeutic drug level monitoring (principal); F25.1 Schizoaffective disorder, depressive type
CPT/HCPCS: 36415; 80164

== ENCOUNTER → 2019-08-17 10:23 | Outpatient (CLI) | payer OTHER, SELFPAY ==
[2019-07-13 01:30] VITALS: BMI 42.5
--- NOTE | 2019-08-17 | DI.RAD.S_ITS ---
PROCEDURE: XR KNEE LT 1TO2V INDICATIONS: Pain in left knee TECHNIQUE: 2 views of the knee were acquired. COMPARISON: None. FINDINGS: Bones: No fractures or dislocations. No suspicious bony lesions. Scattered degenerative subchondral sclerosis and spurring. Mild narrowing of the medial joint space. Soft tissues: Moderate joint effusion. No suspicious soft tissue calcifications. IMPRESSION: Mild joint degeneration. Moderate joint effusion. If the patient's pain or other symptoms persist, consider further evaluation with MRI Dictated by: Ambrose Waterman M.D. on 08/17/2019 at 12:58 Approved by: Ambrose Waterman M.D. on 08/17/2019 at 13:00
== END ==
PROVIDERS: PCP Family Medicine; Referring Provider Nurse Practitioner Family; Visit Provider Nurse Practitioner Family
DX: M25.562 Pain in left knee (principal); M17.12 Unilateral primary osteoarthritis, left knee; M25.462 Effusion, left knee
CPT/HCPCS: 73560

== ENCOUNTER 2019-08-19 08:13 | Emergency (ER) | payer OTHER, SELFPAY ==
[2019-07-13 01:30] VITALS: BMI 42.5
[2019-08-19 08:24] VITALS: BP 128/58; PULSE 53; RESP 16; TEMP 36.4; O2SAT 99; BMI 43.5
--- NOTE | 2019-08-19 08:47 | ED.LOWEXIN ---
HPI - Extremity Injury (Lower) General Chief Complaint: Extremity Injury, Lower Stated Complaint: Lt leg pain x8 days Time Seen by Provider: 08/19/19 08:17 Source: patient Mode of arrival: Family Vehicle Limitations: no limitations History of Present Illness HPI Narrative: CC: Left Knee pain HPI: The patient is a 58-year-old male who comes into the emergency department complaining of pain in his left knee for the last 8 days prior to admission. The patient states that he was going to the bathroom and blacked out approximately 1-2 weeks ago and was admitted to the hospital for blood sugar of 680. He injured his knee at that time. He has had pain in his left knee since then. X-rays were ordered by his primary care physician but he does not know of the results. He has been developed progressively worsening pain and discomfort. Sometimes his knee feels as though it is going to give out and he is going to collapse and fall. His pain and discomfort has been 10/10 in intensity. Since his admission he has had no syncope, no chest pain no shortness of breath no fever chills or sweats or exposure to cold that. He admits to history of diabetes mellitus hypertension congestive heart failure myocardial infarction and COPD. He does not have seizures and has not had a stroke. He has had coronary artery bypass graft surgery. He is a former smoker does not drink alcohol or use any drugs. Related Data Home Medications Medication Instructions Recorded Confirmed metformin [Glucophage XR] 500 mg PO BIDCC #60 tab 12/25/16 07/28/19 atorvastatin 40 mg PO BEDTIME 10/12/17 07/28/19 insulin aspart U-100 See Rx Instructions .ROUTE .COMPLEX 10/12/17 07/28/19 levothyroxine [Synthroid] 75 mcg PO DAILY 10/12/17 07/28/19 nitroglycerin [Nitrostat] 0.4 mg SUBLINGUAL Q5 MIN PRN PRN 10/12/17 07/28/19 lisinopril 10 mg tablet 10 mg PO DAILY 02/07/18 07/28/19 hydrochlorothiazide 25 mg PO DAILY 05/26/18 07/28/19 metoprolol succinate [Toprol XL] 25 mg PO BID 05/26/18 07/28/19 ResMed AirCurve 10 BIPAP #1 ea 02/28/19 04/17/20 fenofibrate 160 mg tablet 160 mg PO DAILY 12/16/18 07/28/19 tramadol 50 mg tablet 50 mg PO BID PRN MDD 2 tabs 12/16/18 07/28/19 omeprazole 20 mg PO DAILY 12/20/18 07/28/19 Xarelto 20 mg PO QPM 02/16/19 07/28/19 aspirin 81 mg PO DAILY 02/16/19 07/28/19 isosorbide mononitrate 60 mg PO DAILY 02/16/19 07/28/19 gabapentin 300 mg capsule 600 mg PO TID cap 03/17/19 07/28/19 cholecalciferol (vitamin D3) 5,000 unit PO DAILY 04/25/19 07/28/19 [Vitamin D3] ziprasidone HCl 80 mg PO BEDTIME 04/25/19 07/28/19 divalproex 500 mg PO QAM 07/13/19 07/28/19 Previous Rx's Medication Instructions Recorded fluoxetine 40 mg capsule 80 mg PO DAILY #180 cap 04/17/19 divalproex 500 mg tablet,delayed 1,500 mg PO BEDTIME #360 tab 04/21/19 release glucose 4 gram PO Q15M PRN #20 tab 07/13/19 insulin glargine 30 unit SUB-Q BID #15 ml 07/13/19 lorazepam 1 mg tablet 1 mg PO DAILY PRN #10 tab 07/18/19 ibuprofen 600 mg PO Q6H PRN #16 tab 08/19/19 Allergies Allergy/AdvReac Type Severity Reaction Status Date / Time Penicillins [PENICILLINS] Allergy Severe Swelling Verified 08/19/19 08:29 of Lip/Tongue/Throat Alluna Sleep AdvReac Severe Difficulty Uncoded 08/19/19 08:29 Swallowing Review of Systems Review of Systems Narrative: REVIEW OF SYSTEMS: CONSTITUTIONAL: No fever chills or sweats NEUROLOGICAL: No headache numbness tingling paresthesias and seizures or paresis EENT: No sore throat or nasal congestion CARDIO-PULMONARY: No chest pain cough shortness of breath GASTROINTESTINAL: No abdominal pain nausea vomiting GENITAL URINARY: No urinary symptoms DERMATOLOGICAL: No rash or bruising Patient History Medical History Acute hyperglycemia (Acute) Atypical chest pain (Acute) CAD (coronary artery disease) (Chronic) Chronic left shoulder pain (Acute) Diabetes type 2, controlled (Chronic) HTN (hypertension) (Chronic) Hyperlipidemia (Chronic) Obstructive sleep apnea of adult (Chronic) Pulmonary embolism (Acute) Schizoaffective disorder (Chronic) Tardive dyskinesia (Acute) Surgical History Hx of CABG (Chronic) Family History Mother Coronary artery disease Father No problems noted. Social History marital status: unmarried,single details: lives with his parents household members: family lives independently: Yes caregiver/support person: Yes housing: house pets and animals: Yes Smoking Status: Former smoker alcohol intake: never substance use type: does not use Smoking Status: Former smoker alcohol intake frequency: 0-2 drinks per day Substance Use Type: does not use Exam Narrative Exam Narrative: PHYSICAL EXAM: CONSTITUTIONAL: Awake, Alert, Oriented, Coherent, Cooperative in NAD. Does not appear toxic or ill. HEAD: AT/NC EENT: PERRL, FROM of eyes, . MOUTH: Wearing a mask. NECK: Supple, no obvious JVD, Trachea is midline without stridor, no palpable LN. SPINE: Palpationof the cervical, Thoracic, Lumbar or Sacral spine reveals no gross deformity or tenderness. No CVA tenderness. THORAX: No deformity, retractions, chest wall tenderness. LUNGS: Clear, symmetrical breath sounds without respiratory distress. HEART: Normal heart tones, regular rhythm and rate without murmur. ABDOMEN: Soft, non-tender, normal bowel sounds without guarding, rebound, rigidity or palpable mass. EXTREMITIES: No edema, deformity, tenderness or cyanosis. The patient's left knee is more minimally swollen. There is no erythema no warmth noted. There is no bruising. Popliteal pulses 1+. No tenderness in the popliteal fossa. The patient has limited slow but full flexion extension of the knee. There is no drawer sign. The patient is most tender to palpation along the medial collateral ligament as well as on stressing. There is no tenderness over the quadriceps femoris nor tenderness over the tibia and fibular heads. SKIN: No rash, bruising, petechiae or purpura. NEURO: Awake, alert, oriented, conversive, cranial nerves II-XII are symmetrical , moves all 4 extremities and is ambulatory. Initial Vital Signs Initial Vital Signs: Vital Signs Temperature 97.5 F L 08/19/19 08:24 Pulse Rate 53 L 08/19/19 08:24 Respiratory Rate 16 08/19/19 08:24 Blood Pressure 128/58 L 08/19/19 08:24 Pulse Oximetry 99 08/19/19 08:24 Course Course Course Narrative: 0849: Patient states that he has tramadol at home that he takes for pain in his shoulder. The patient was advised to continue to use this medication in take it 3 times a day as needed for pain in his knee. For pain on relieved by the tramadol he was given a prescription for 600 mg ibuprofen 16 tablets, 1 tablet every 6 hours as needed for pain and discomfort. He was advised to use this pain medicine only when the pain is unrelieved by the tramadol because the ibuprofen may interact with the Xarelto. Orders Ordered: Discontinued Medications Morphine Sulfate (Morphine) 4 mg IM NOW ONE Stop: 08/19/19 08:52 Last Admin: 08/19/19 09:10 Dose: 4 mg Documented by: MINERVA Ondansetron HCl (Zofran Odt) 4 mg SL NOW ONE Stop: 08/19/19 08:52 Last Admin: 08/19/19 09:09 Dose: 4 mg Documented by: MINERVA Vital Signs Vital signs: Vital Signs - 8 hr 08/19/19 08:24 Temperature 97.5 F L Pulse Rate 53 L Respiratory Rate 16 Blood Pressure 128/58 L Pulse Oximetry 99 MDM - Extremity Injury (Lower) Lab Data Labs: Point of Care Testing Glucose POC 238 Discharge Plan Departure Patient Disposition: Home Clinical Impression: Knee joint pain Qualifiers: Laterality: left Qualified Code(s): M25.562 - Pain in left knee Sprain of medial collateral ligament of knee Qualifiers: Encounter type: initial encounter Laterality: left Qualified Code(s): S83.412A - Sprain of medial collateral ligament of left knee, initial encounter Discharge Date/Time: 08/19/19 09:54 Instructions: DI for Knee Sprain, DI for Knee Pain Activity Restrictions/Additional Instructions: 1. You need to follow up with your primary care physician and be scheduled for a possible outpatient MRI. 2 you can call and make a follow-up appointment with the orthopedic surgeon who is currently international accountant today 3. wear the straight leg immobilizer for stability and protect against your knee giving out. 4. Ibuprofen 600 mg every 6 hours for pain. The ibuprofen may interact with your Xarelto. Use only when you have severe pain that is unrelieved by the tramadol. Continued chronic use of the ibuprofen in conjunction with the Xarelto will cause increase GI bleeding. 5. use the tramadol you have at home for your shoulder for pain. 6. Whenever possible rest your left knee and leg, apply ice or war compresses for 20 -30 ninutes every 2 hours as needed while awake Prescriptions: New ibuprofen 600 mg tablet 600 mg PO Q6H PRN (Reason: pain) Qty: 16 RF: 0 No Action lisinopril 10 mg tablet 10 mg PO DAILY RF: 0 gabapentin 300 mg capsule 600 mg PO TID RF: 0 fenofibrate 160 mg tablet 160 mg PO DAILY RF: 0 tramadol 50 mg tablet 50 mg PO BID MDD 2 tabs PRN (Reason: Pain (Scale Score 4-6)) RF: 0 lorazepam 1 mg tablet 1 mg PO DAILY PRN (Reason: agitation) Qty: 10 RF: 0 metformin [Glucophage XR] 500 MG tablet extended release 24 hr 500 mg PO BIDCC Qty: 60 RF: 0 fluoxetine 40 mg capsule 80 mg PO DAILY Qty: 180 RF: 3 divalproex [Depakote] 500 mg tablet,delayed release (DR/EC) 1,500 mg PO BEDTIME Qty: 360 RF: 0 nitroglycerin [Nitrostat] 0.4 mg Tablet, Sublingual 0.4 mg Sublingual Q5 MIN PRN PRN (Reason: Chest Pain) RF: 0 atorvastatin 40 mg Tablet 40 mg PO BEDTIME RF: 0 levothyroxine [Synthroid] 75 mcg Tablet 75 mcg PO DAILY RF: 0 insulin aspart U-100 100 unit/mL Insulin Pen See Rx Instructions .ROUTE .COMPLEX RF: 0 aspirin 81 mg Tablet,Delayed Release (Dr/Ec) 81 mg PO DAILY RF: 0 isosorbide mononitrate 60 mg Tablet Extended Release 24 Hr 60 mg PO DAILY RF: 0 Xarelto 20 mg Tablet 20 mg PO QPM RF: 0 cholecalciferol (vitamin D3) [Vitamin D3] 5,000 unit Tablet 5,000 unit PO DAILY RF: 0 ziprasidone HCl 80 mg capsule 80 mg PO BEDTIME RF: 0 hydrochlorothiazide 25 mg Tablet 25 mg PO DAILY RF: 0 metoprolol succinate [Toprol XL] 25 MG tablet extended release 24 hr 25 mg PO BID RF: 0 omeprazole 20 mg Capsule,Delayed Release(Dr/Ec) 20 mg PO DAILY RF: 0 divalproex 500 mg Tablet Extended Release 24 Hr 500 mg PO QAM RF: 0 glucose 4 gram tablet,chewable 4 gram PO Q15M PRN (Reason: hypoglycemia) Qty: 20 RF: 0 insulin glargine 100 unit/mL (3 mL) Insulin Pen 30 unit Sub-Q BID Qty: 15 RF: 0 (DME) ResMed AirCurve 10 BIPAP Qty: 1 RF: 0 Referrals: Ramon Pappas MD [Physician] - (Call for an appointment. probable ligamentous injury to the left knee.) Sandra Garland [Primary Care Provider] -
[2019-08-19] MEDS: ONDANSETRON 4 MG ODT SL (09:09)
[2019-08-19] MEDS: MORPHINE 4 MG/ML INJ IM (09:10)
[2019-08-19 09:18] VITALS: BP 108/56; PULSE 50; RESP 16; O2SAT 99
== END 2019-08-19 09:54 | disposition home or self-care (01) ==
PROVIDERS: Emergency Provider Emergency Medicine; PCP Family Medicine
DX: M25.562 Pain in left knee (principal); S83.412A Sprain of medial collateral ligament of left knee, initial encounter
CPT/HCPCS: 82962; 96372; 99283; 99284; J2270

== ENCOUNTER 2019-09-19 08:48 | Emergency (ER) | payer OTHER, SELFPAY ==
[2019-07-13 01:30] VITALS: BMI 42.5
[2019-09-19 08:50] VITALS: BP 155/65; PULSE 60; RESP 17; TEMP 36.8; O2SAT 99
--- NOTE | 2019-09-19 08:56 | ED_ITS ---
HPI - General Adult General Chief complaint: Shortness of Breath/Dyspnea Stated complaint: burning up/cold,slept all day, shorntess of breath Time Seen by Provider: 09/19/19 08:55 Source: patient Mode of arrival: Ambulatory Limitations: no limitations History of Present Illness HPI narrative: 59-year-old male arrives to the emergency department today for multiple episodes to include shortness of breath on exertion, his baseline chest pain, and excessive sleepiness. He states he was recently stopped on his Geodon and was tapered off for this and has been increasing on a new prescription of Seroquel. He states that yesterday he took the Geodon and slept for 13 hours which he states is not like him. He also states this morning he had some shortness of breath when climbing a flight of stairs. He has his baseline chest discomfort. He thought that he was having a panic attack this morning so we took an Ativan and a nitro. No other changes to his medicines. He did take his insulin this morning. He does admit that his blood sugars have been fluctuating greatly recently. He states he was told to come to the emergency department if he develops any of these symptoms Related Data Home Medications Medication Instructions Recorded Confirmed metformin [Glucophage XR] 500 mg PO BIDCC #60 tab 12/25/16 08/25/19 atorvastatin 40 mg PO BEDTIME 10/12/17 08/25/19 insulin aspart U-100 See Rx Instructions .ROUTE .COMPLEX 10/12/17 08/25/19 levothyroxine [Synthroid] 75 mcg PO DAILY 10/12/17 08/25/19 nitroglycerin [Nitrostat] 0.4 mg SUBLINGUAL Q5 MIN PRN PRN 10/12/17 08/25/19 hydrochlorothiazide 25 mg PO DAILY 05/26/18 08/25/19 metoprolol succinate [Toprol XL] 25 mg PO BID 05/26/18 08/25/19 ResMed AirCurve 10 BIPAP #1 ea 06/09/18 08/25/19 fenofibrate 160 mg tablet 160 mg PO DAILY 12/16/18 08/25/19 tramadol 50 mg tablet 50 mg PO BID PRN MDD 2 tabs 12/16/18 08/25/19 omeprazole 20 mg PO DAILY 12/20/18 08/25/19 Xarelto 20 mg PO QPM 02/16/19 08/25/19 aspirin 81 mg PO DAILY 02/16/19 08/25/19 isosorbide mononitrate 60 mg PO DAILY 02/16/19 08/25/19 gabapentin 300 mg capsule 600 mg PO TID cap 03/17/19 08/25/19 cholecalciferol (vitamin D3) 5,000 unit PO DAILY 04/25/19 08/25/19 [Vitamin D3] divalproex 500 mg PO QAM 07/13/19 08/25/19 insulin glargine 100 unit/mL (3 32 unit SUB-Q BID ml 08/25/19 08/25/19 mL) subcutaneous pen lisinopril 10 mg tablet 10 mg PO DAILY 08/25/19 08/25/19 Previous Rx's Medication Instructions Recorded fluoxetine 40 mg capsule 80 mg PO DAILY #180 cap 04/17/19 divalproex 500 mg tablet,delayed 1,500 mg PO BEDTIME #360 tab 04/21/19 release glucose 4 gram PO Q15M PRN #20 tab 07/13/19 lorazepam 1 mg tablet 1 mg PO DAILY PRN #10 tab 07/18/19 quetiapine 100 mg tablet 100 mg PO BEDTIME #90 tab 09/05/19 Allergies Allergy/AdvReac Type Severity Reaction Status Date / Time Penicillins [PENICILLINS] Allergy Severe Swelling Verified 08/25/19 08:17 of Lip/Tongue/Throat Alluna Sleep AdvReac Severe Difficulty Uncoded 08/25/19 08:17 Swallowing Review of Systems Constitutional Constitutional: Denies fever(s) and Denies headache(s) ENT Ears, Nose, Mouth, and Throat: Denies vertigo, Denies dizziness and Denies headache(s) Cardiovascular Cardiovascular: Reports chest pain (His baseline chest pain) and Reports dyspnea on exertion Respiratory Respiratory: Denies cough and Reports dyspnea on exertion Gastrointestinal Gastrointestinal: Denies abdominal pain, Denies change in bowel habits, Denies diarrhea and Denies nausea Musculoskeletal Musculoskeletal: Denies arthralgias and Denies myalgias Integumentary/Breasts Skin/Breast: Denies rash Neurologic Neurologic: Denies confusion, Denies vertigo, Denies dizziness and Denies headache(s) Psychiatric Psychiatric: Reports anxiety and Denies confusion Hematologic/Lymphatic Hematologic/Lymphatic: Denies easy bleeding and Denies easy bruising Patient History Medical History Acute hyperglycemia (Acute) Atypical chest pain (Acute) CAD (coronary artery disease) (Chronic) Chronic left shoulder pain (Acute) Diabetes type 2, controlled (Chronic) HTN (hypertension) (Chronic) Hyperlipidemia (Chronic) Obstructive sleep apnea of adult (Chronic) Pulmonary embolism (Acute) Schizoaffective disorder (Chronic) Tardive dyskinesia (Acute) Surgical History Hx of CABG (Chronic) Family History Mother Coronary artery disease Father No problems noted. Social History marital status: unmarried,single details: lives with his parents household members: family lives independently: Yes caregiver/support person: Yes housing: house pets and animals: Yes Smoking Status: Former smoker alcohol intake: never substance use type: does not use Smoking Status: Former smoker alcohol intake frequency: 0-2 drinks per day Substance Use Type: does not use Exam Initial Vital Signs Initial Vital Signs: Vital Signs Temperature 98.2 F 09/19/19 08:50 Pulse Rate 60 09/19/19 08:50 Respiratory Rate 17 09/19/19 08:50 Blood Pressure 155/65 H 09/19/19 08:50 Pulse Oximetry 99 09/19/19 08:50 Const General: cooperative and diaphoretic Limitations: mental status not altered HENMT Head: normal to inspection and normocephalic Resp Effort & Inspection: normal respiratory effort Auscultation: clear to auscultation bilaterally Cardio Rate: regular rate Rhythm: regular rhythm Skin Lesions: no lesions Rashes: no rashes Neuro General: patient alert, patient awake and patient oriented x3 Cognition: normal cognition Speech: speech normal Extrem General: normal to inspection and capillary refill normal Psych Appearance: grossly normal and well kempt Scores GCS Curtis coma scale eye opening: Spontaneous Wiley coma scale verbal response: Orientated Wiley coma scale motor response: Obey commands Wiley coma scale total score: 15 Course Orders Ordered: ED Orders 09/19/19 08:52 EKG-12 Lead Stat 09/19/19 09:08 XR chest 1V Stat 09/19/19 10:03 Complete Blood Count AUTO DIFF Stat Comprehensive Metabolic Panel Stat Lipase Stat NT-proBNP (BNP-Adult 18+) Stat Thyroid Stimulating Hormone Stat Troponin I Stat Vital Signs Vital signs: Vital Signs - 8 hr 09/19/19 08:50 09/19/19 09:30 09/19/19 10:30 Temperature 98.2 F Pulse Rate 60 55 L 54 L Respiratory Rate 17 18 16 Blood Pressure 155/65 H Blood Pressure [Right Arm] 129/60 168/72 H Pulse Oximetry 99 96 98 09/19/19 11:19 Temperature Pulse Rate 51 L Respiratory Rate 15 Blood Pressure Blood Pressure [Right Arm] 135/59 L Pulse Oximetry 98 Medical Decision Making Medical Records Medical records reviewed: Yes I reviewed the patient's medical records. Lab Data Lab results reviewed: Yes I reviewed the patient's lab results. Result diagrams: 09/19/19 10:03 09/19/19 10:03 Labs: Lab Results 09/19/19 09/19/19 09/19/19 Range/Units 10:03 10:03 10:03 WBC 6.6 (4.5-11.0) X10^3/uL RBC 3.84 L (4.5-5.9) X10^6/uL Hgb 11.2 L (13.5-17.5) g/dL Hct 33.0 L (41-53) % MCV 85.9 (80-100) fL MCH 29.1 (26-34) PG MCHC 33.9 (30-36) % RDW 18.5 H (11.6-14.8) % Plt Count 121 L (150-400) X10^3/uL Neut % (Auto) 69.0 (50-75) % Lymph % (Auto) 21.8 L (25-40) % Garvin % (Auto) 7.3 (3-14) % Eos % (Auto) 1.5 L (2-4) % Baso % (Auto) 0.4 (0-2) % Neut # (Auto) 4600 (3014-5217) /uL Lymph # (Auto) 1400 (4149-9659) /uL Garvin # (Auto) 500 (0-900) /uL Eos # (Auto) 100 (0-450) /uL Baso # (Auto) 0 (0-100) /uL Sodium 140 (137-145) mmol/L Potassium 4.4 (3.4-5.1) mmol/L Chloride 108 H (98-107) mmol/L Carbon Dioxide 28 (22-32) mmol/L BUN 19 (9-20) mg/dL Creatinine 0.94 (0.66-1.25) mg/dL Estimated GFR > 60.0 (>60) mL/min BUN/Creatinine Ratio 20.2 (6-22) Glucose 261 H (70-100) mg/dL Calcium 9.2 (8.4-10.2) mg/dL Total Bilirubin 0.4 (0.2-1.3) mg/dL AST 20 (17-59) IU/L ALT 15 (<50) IU/L Alkaline Phosphatase 56 (38-126) U/L Troponin I (0.01-0.034) ng/mL NT-Pro-B Natriuret Pep (<125) pg/mL Total Protein 6.8 (6.3-8.2) g/dL Albumin 3.7 (3.5-5.0) g/dL Globulin 3.1 (1.7-4.1) g/dL Albumin/Globulin Ratio 1.2 (1.0-2.8) Lipase 49 (23-300) U/L TSH 7.26 H (0.47-4.68) uIU/mL 09/19/19 Range/Units 10:03 WBC (4.5-11.0) X10^3/uL RBC (4.5-5.9) X10^6/uL Hgb (13.5-17.5) g/dL Hct (41-53) % MCV (80-100) fL MCH (26-34) PG MCHC (30-36) % RDW (11.6-14.8) % Plt Count (150-400) X10^3/uL Neut % (Auto) (50-75) % Lymph % (Auto) (25-40) % Garvin % (Auto) (3-14) % Eos % (Auto) (2-4) % Baso % (Auto) (0-2) % Neut # (Auto) (3737-5760) /uL Lymph # (Auto) (2071-6993) /uL Garvin # (Auto) (0-900) /uL Eos # (Auto) (0-450) /uL Baso # (Auto) (0-100) /uL Sodium (137-145) mmol/L Potassium (3.4-5.1) mmol/L Chloride (98-107) mmol/L Carbon Dioxide (22-32) mmol/L BUN (9-20) mg/dL Creatinine (0.66-1.25) mg/dL Estimated GFR (>60) mL/min BUN/Creatinine Ratio (6-22) Glucose (70-100) mg/dL Calcium (8.4-10.2) mg/dL Total Bilirubin (0.2-1.3) mg/dL AST (17-59) IU/L ALT (<50) IU/L Alkaline Phosphatase (38-126) U/L Troponin I < 0.012 (0.01-0.034) ng/mL NT-Pro-B Natriuret Pep 1560 H (<125) pg/mL Total Protein (6.3-8.2) g/dL Albumin (3.5-5.0) g/dL Globulin (1.7-4.1) g/dL Albumin/Globulin Ratio (1.0-2.8) Lipase (23-300) U/L TSH (0.47-4.68) uIU/mL Point of Care Testing Glucose POC 250 Point of care testing: Point of Care Testing Glucose POC 250 Imaging Data Chest x-ray: Radiologist's Impression: [address] [address] XRay Report Signed Patient: Luis E Pierre RMR#: [id number] : [id number]:[id number] Age/Sex: 59 / MDate of Service: 09/19/19 Loc: ED Accession Number: [id number] Procedure: XR chest 1V Ordering Provider: Ramesh Jimenez D.O. PROCEDURE: XR CHEST 1V INDICATIONS: Shortness of breath TECHNIQUE: One view of the chest was acquired. COMPARISON: [facility], CT, CT ANGIO CHEST PE PROTOCOL, 06/25/2019, 19:54. [facility], CR, XR CHEST 1V, 06/25/2019, 13:28. [facility], CT, CT ANGIO CHEST PE PROTOCOL, 06/06/2019, 14:12. [facility], CR, XR CHEST 1V, 06/06/2019, 12:14. [facility], CR, XR CHEST 1V, 07/12/2019, 20:48. FINDINGS: Surgical changes and devices: Post CABG changes are seen. Lungs and pleura: Low lung volumes are noted. This causes a crowded appearance to the lung markings and limits evaluation. Interstitial prominence is seen throughout. No large pneumothorax or large pleural effusions are seen. Mediastinum: Mediastinal contours appear normal. Heart size is mildly enlarged. Bones and chest wall: Age-appropriate bony degenerative changes are seen. No suspicious bony lesions. Overlying soft tissues appear unremarkable. IMPRESSION: Cardiomegaly and interstitial prominence. Please correlate with patient presentation, physical examination findings, and laboratory values for congestive heart failure. Postoperative and degenerative changes are seen. Dictated by: David Gonzalez M.D. on 09/19/2019 at 8:20 Approved by: David Gonzalez M.D. on 09/19/2019 at 8:22 ECG Data Attestation: I personally reviewed and interpreted this ECG as follows: Prior ECG tracings: not available for review Interpretation: Sinus bradycardia Ventricular rate of 55 Normal axis Normal QRS Normal QTC No ST T wave changes MDM Narrative Medical decision making narrative: Patient's workup here in the emergency dep artment was unremarkable. We did talk about his TSH. He states that he has not had any changes to his thyroid medications recently. Informed him that he did need to talk with his primary provider about any changes to this medication. I did discuss the case with Dr. Jovel who is his psychiatrist. She thinks that his symptoms today are not the Seroquel itself but the transition between the Ge odon to the Seroquel. I informed the patient of this as well. He expressed understanding. I feel patient can be safely discharged home. He was given return precautions. He will receive a phone call from the psychiatrist office later this afternoon for follow-up. He expressed understanding and agreement. Discharge Plan Departure Patient Disposition: Home Clinical Impression: Shortness of Breath, Somnolence Activity Restrictions/Additional Instructions: You should be receiving a call from Dr. Jovel's office either this afternoon or tomorrow. She did recommend that you continue with your current medications. Return to the emergency department for any new or worsening symptoms Prescriptions: No Action lisinopril 10 mg tablet 10 mg PO DAILY RF: 0 gabapentin 300 mg capsule 600 mg PO TID RF: 0 insulin glargine 100 unit/mL (3 mL) insulin pen 32 unit Sub-Q BID RF: 0 fenofibrate 160 mg tablet 160 mg PO DAILY RF: 0 tramadol 50 mg tablet 50 mg PO BID MDD 2 tabs PRN (Reason: Pain (Scale Score 4-6)) RF: 0 lorazepam 1 mg tablet 1 mg PO DAILY PRN (Reason: agitation) Qty: 10 RF: 0 metformin [Glucophage XR] 500 MG tablet extended release 24 hr 500 mg PO BIDCC Qty: 60 RF: 0 fluoxetine 40 mg capsule 80 mg PO DAILY Qty: 180 RF: 3 divalproex [Depakote] 500 mg tablet,delayed release (DR/EC) 1,500 mg PO BEDTIME Qty: 360 RF: 0 quetiapine 100 mg tablet 100 mg PO BEDTIME Qty: 90 RF: 0 nitroglycerin [Nitrostat] 0.4 mg Tablet, Sublingual 0.4 mg Sublingual Q5 MIN PRN PRN (Reason: Chest Pain) RF: 0 atorvastatin 40 mg Tablet 40 mg PO BEDTIME RF: 0 levothyroxine [Synthroid] 75 mcg Tablet 75 mcg PO DAILY RF: 0 insulin aspart U-100 100 unit/mL Insulin Pen See Rx Instructions .ROUTE .COMPLEX RF: 0 aspirin 81 mg Tablet,Delayed Release (Dr/Ec) 81 mg PO DAILY RF: 0 isosorbide mononitrate 60 mg Tablet Extended Release 24 Hr 60 mg PO DAILY RF: 0 Xarelto 20 mg Tablet 20 mg PO QPM RF: 0 cholecalciferol (vitamin D3) [Vitamin D3] 5,000 unit Tablet 5,000 unit PO DAILY RF: 0 hydrochlorothiazide 25 mg Tablet 25 mg PO DAILY RF: 0 metoprolol succinate [Toprol XL] 25 MG tablet extended release 24 hr 25 mg PO BID RF: 0 omeprazole 20 mg Capsule,Delayed Release(Dr/Ec) 20 mg PO DAILY RF: 0 divalproex 500 mg Tablet Extended Release 24 Hr 500 mg PO QAM RF: 0 glucose 4 gram tablet,chewable 4 gram PO Q15M PRN (Reason: hypoglycemia) Qty: 20 RF: 0 (DME) ResMed AirCurve 10 BIPAP Qty: 1 RF: 0 Referrals: Sandra Garland [Primary Care Provider] -
--- NOTE | 2019-09-19 09:08 | DI.RAD.S_ITS ---
PROCEDURE: XR CHEST 1V INDICATIONS: Shortness of breath TECHNIQUE: One view of the chest was acquired. COMPARISON: [facility], CT, CT ANGIO CHEST PE PROTOCOL, 06/25/2019, 19:54. [facility], CR, XR CHEST 1V, 06/25/2019, 13:28. [facility], CT, CT ANGIO CHEST PE PROTOCOL, 06/06/2019, 14:12. [facility], CR, XR CHEST 1V, 06/06/2019, 12:14. [facility], CR, XR CHEST 1V, 07/12/2019, 20:48. FINDINGS: Surgical changes and devices: Post CABG changes are seen. Lungs and pleura: Low lung volumes are noted. This causes a crowded appearance to the lung markings and limits evaluation. Interstitial prominence is seen throughout. No large pneumothorax or large pleural effusions are seen. Mediastinum: Mediastinal contours appear normal. Heart size is mildly enlarged. Bones and chest wall: Age-appropriate bony degenerative changes are seen. No suspicious bony lesions. Overlying soft tissues appear unremarkable. IMPRESSION: Cardiomegaly and interstitial prominence. Please correlate with patient presentation, physical examination findings, and laboratory values for congestive heart failure. Postoperative and degenerative changes are seen. Dictated by: David Gonzalez M.D. on 09/19/2019 at 8:20 Approved by: David Gonzalez M.D. on 09/19/2019 at 8:22
[2019-09-19 09:30] VITALS: BP 129/60; PULSE 55; RESP 18; O2SAT 96
[2019-09-19 10:11] LABS: Add Manual Diff / Slide Review NO; Basophils Absolute Auto 0 /uL (0-100); Basophils Percent Auto 0.4 % (0-2); Eosinophils Absolute Auto 100 /uL (0-450); Eosinophils Percent Auto 1.5 % (2-4); Hemoglobin 11.2 g/dL (13.5-17.5); Lymphocytes Absolute Auto 1400 /uL (1100-4500); Lymphocytes Percent Auto 21.8 % (25-40); Mean Corpuscular HGB Conc 33.9 % (30-36); Mean Corpuscular Hemoglobin 29.1 PG (26-34); Mean Corpuscular Volume 85.9 fL (80-100); Monocytes Absolute Auto 500 /uL (0-900); Monocytes Percent Auto 7.3 % (3-14); Neutrophils Absolute Auto 4600 /uL (1500-7000); Platelet Count 121 X10^3/uL (150-400); Red Blood Cell Count 3.84 X10^6/uL (4.5-5.9); Red Cell Distribution Width 18.5 % (11.6-14.8); White Blood Cell Count 6.6 X10^3/uL (4.5-11.0)
[2019-09-19 10:23] LABS: Alanine Aminotransferase 15 IU/L (<50); Albumin 3.7 g/dL (3.5-5.0); Albumin Globulin Ratio 1.2 (1.0-2.8); Alkaline Phosphatase 56 U/L (38-126); Aspartate Aminotransferase 20 IU/L (17-59); BUN Creatinine Ratio 20.2 (6-22); Bilirubin Total 0.4 mg/dL (0.2-1.3); Blood Urea Nitrogen 19 mg/dL (9-20); Calcium 9.2 mg/dL (8.4-10.2); Carbon Dioxide 28 mmol/L (22-32); Chloride 108 mmol/L (98-107); Estimated Glomerular Filt Rate > 60.0 mL/min (>60); Globulin 3.1 g/dL (1.7-4.1); Glucose 261 mg/dL (70-100); HEMOLYSIS < 15 (0-50); Lipase 49 U/L (23-300); Potassium 4.4 mmol/L (3.4-5.1); Sodium 140 mmol/L (137-145); Total Protein 6.8 g/dL (6.3-8.2)
[2019-09-19 10:30] VITALS: BP 168/72; PULSE 54; RESP 16; O2SAT 98
[2019-09-19 10:33] LABS: NT-proBNP (BNP-Adult 18+) 1560 pg/mL (<125); Troponin I < 0.012 ng/mL (0.01-0.034)
[2019-09-19 11:03] LABS: Thyroid Stimulating Hormone 7.26 uIU/mL (0.47-4.68)
[2019-09-19 11:19] VITALS: BP 135/59; PULSE 51; RESP 15; O2SAT 98
== END 2019-09-19 11:30 | disposition home or self-care (01) ==
PROVIDERS: Emergency Provider Emergency Medicine; PCP Family Medicine
DX: R06.02 Shortness of breath (principal); R40.0 Somnolence
CPT/HCPCS: 36415; 71045; 80053; 82962; 83690; 83880; 84443; 84484; 85025; 93005; 99284

== ENCOUNTER 2019-11-08 16:56 | Emergency (ER) | payer OTHER, SELFPAY ==
[2019-07-13 01:30] VITALS: BMI 42.5
[2019-11-08] VITALS (16 sets, daily range): BP systolic 112–133; BP diastolic 56–72; PULSE 60–67; RESP 9–25; TEMP 36.6; O2SAT 95–99; BMI 42.7
--- NOTE | 2019-11-08 17:08 | DI.CT.S_ITS ---
PROCEDURE: CT STROKE INDICATIONS: Stroke symptoms TECHNIQUE: Noncontrast 4.5 mm thick angled axial sections acquired from the foramen magnum to the vertex, with coronal reformats. For radiation dose reduction, the following was used: automated exposure control, adjustment of mA and/or kV according to patient size. COMPARISON: None. FINDINGS: Image quality: Excellent. CSF spaces: Basal cisterns are patent. No extra-axial fluid collections. Ventricles are normal in size and shape. Brain: No midline shift. No intracranial masses or hemorrhage. Wade-white matter interface is normal. Skull and face: Calvarium and visualized facial bones are intact, without suspicious lesions. Sinuses: Visualized sinuses and mastoids are clear. IMPRESSION: 1. No CT evidence of acute intracranial process. 2. Findings discussed with Dr. Malik in the emergency room at 17:32 hours. This study fulfills neurological imaging criteria for inclusion or exclusion of acute stroke therapies based on available published neurological imaging guidelines. Dictated by: Katia Llanos M.D. on 11/08/2019 at 17:30 Approved by: Katia Llanos M.D. on 11/08/2019 at 17:33
[2019-11-08 18:12] LABS: Add Manual Diff / Slide Review NO; Basophils Absolute Auto 0 /uL (0-100); Basophils Percent Auto 0.3 % (0-2); Eosinophils Absolute Auto 200 /uL (0-450); Eosinophils Percent Auto 2.4 % (2-4); Hematocrit 35.7 % (41-53); Hemoglobin 12.5 g/dL (13.5-17.5); Lymphocytes Absolute Auto 2600 /uL (1100-4500); Lymphocytes Percent Auto 37.4 % (25-40); Mean Corpuscular HGB Conc 34.9 % (30-36); Mean Corpuscular Hemoglobin 30.2 PG (26-34); Mean Corpuscular Volume 86.4 fL (80-100); Monocytes Absolute Auto 800 /uL (0-900); Monocytes Percent Auto 10.8 % (3-14); Neutrophils Absolute Auto 3400 /uL (1500-7000); Neutrophils Percent Auto 49.1 % (50-75); Platelet Count 162 X10^3/uL (150-400); Prothrombin Time 11.9 SECONDS (10.1-12.7); Red Blood Cell Count 4.13 X10^6/uL (4.5-5.9); Red Cell Distribution Width 14.4 % (11.6-14.8)
[2019-11-08 18:15] LABS: PTT Partial Thromboplastin Tim 32 SECONDS (26.4-36.2)
[2019-11-08 18:16] LABS: Blood Urea Nitrogen 77 mg/dL (9-20); Carbon Dioxide 27 mmol/L (22-32); Chloride 93 mmol/L (98-107); Estimated Glomerular Filt Rate 25.7 mL/min (>60); Glucose 175 mg/dL (70-100); HEMOLYSIS 16 (0-50); Potassium 3.1 mmol/L (3.4-5.1); Sodium 131 mmol/L (137-145)
[2019-11-08 18:50] LABS: Creatine Kinase 671 U/L (55-170); Magnesium 2.1 mg/dL (1.6-2.3)
[2019-11-08 19:02] LABS: Troponin I 0.014 ng/mL (0.01-0.034)
[2019-11-08 19:05] LABS: CKMB % Relative Index 0.6 % (1.5-5.0); Creatine Kinase MB 4.22 ng/mL (<2.37)
--- NOTE | 2019-11-08 20:28 | ED.NEUROSD ---
HPI - Neuro Symptoms/Deficit General Chief Complaint: Neuro Symptoms/Deficit Stated Complaint: slurring words, weakness Time Seen by Provider: 11/08/19 18:05 Source: patient Mode of arrival: Wheelchair Limitations: no limitations History of Present Illness HPI Narrative: 59-year-old gentleman with schizoaffective disorder depressive type and cardiovascular disease (post 5 way CABG), presents today with complaints of chest pain, ?the voices are weaning? having a very bad day and increased shakiness in his hands and an episode of his legs giving out on him completely earlier this morning. He describes no fever cough chills. He does have nausea and leg cramps but has not had recent vomiting or diarrhea. Current psychiatric medications include fluoxetine 80 mg, Depakote 500 mg a.m. 1500 mg at bedtime Abilify 45 mg. He had previously been on ziprasidone and when on this had had dizziness that led to a fall and an inpatient stay in 2018. Lower doses (80 mg at night) have been tolerated. Because of increasingly disruptive tardive dyskinesias symptoms the ziprasidone 80 mg was recently transitioned to quetiapine 200 mg. Patient notes that 4 days ago he was started on Latuda. He ran out of the quetiapine and return to the ziprasidone that he had at home. Chest pain of which he complains is at the bottom of his sternum and completely reproducible with palpation along the xiphoid process. It is not associated with dyspnea, diaphoresis, exertional exacerbation, anxiety or eating. He also complains of shoulder pain chronic for which she takes 100 mg of tramadol twice a day. His left knee apparently has had some recent issues and he describes it as 10/10 pain and states that because of his retic blood sugars surgery has not been an option. From a psychiatric perspective he notes that today's very bad day multiple people have been mean to him he does not feel well, he is having trouble thinking and he feels like his voices are getting louder. He is not currently having suicidal or homicidal ideation. The voices are not command hallucinations On Anticoagulants: Yes (xarelto) Related Data Home Medications Medication Instructions Recorded Confirmed metformin [Glucophage XR] 500 mg PO BIDCC #60 tab 12/25/16 11/08/19 atorvastatin 40 mg PO BEDTIME 10/12/17 11/08/19 insulin aspart U-100 See Rx Instructions .ROUTE .COMPLEX 10/12/17 11/08/19 levothyroxine [Synthroid] 75 mcg PO DAILY 10/12/17 11/08/19 nitroglycerin [Nitrostat] 0.4 mg SUBLINGUAL Q5 MIN PRN PRN 10/12/17 11/08/19 hydrochlorothiazide 25 mg PO DAILY 05/26/18 11/08/19 metoprolol succinate [Toprol XL] 25 mg PO DAILY 05/26/18 11/08/19 fenofibrate 160 mg tablet 160 mg PO DAILY 12/16/18 11/08/19 tramadol 50 mg tablet 50 mg PO BID PRN MDD 2 tabs 12/16/18 11/08/19 omeprazole 20 mg PO DAILY 12/20/18 11/08/19 Xarelto 20 mg PO QPM 02/16/19 11/08/19 aspirin 81 mg PO DAILY 02/16/19 11/08/19 gabapentin 300 mg capsule 300 mg PO TID cap 03/17/19 11/08/19 cholecalciferol (vitamin D3) 5,000 unit PO DAILY 04/25/19 11/08/19 [Vitamin D3] divalproex 500 mg PO QAM 07/13/19 11/08/19 insulin glargine 100 unit/mL (3 35 unit SUB-Q BID ml 08/25/19 11/08/19 mL) subcutaneous pen lisinopril 10 mg tablet 40 mg PO DAILY 08/25/19 11/08/19 alprazolam 0.5 mg PO BID PRN 11/08/19 11/08/19 aripiprazole 30 mg PO DAILY 11/08/19 11/08/19 Previous Rx's Medication Instructions Recorded fluoxetine 40 mg capsule 80 mg PO DAILY #180 cap 04/17/19 divalproex 500 mg tablet,delayed 1,500 mg PO BEDTIME #360 tab 04/21/19 release glucose 4 gram PO Q15M PRN #20 tab 07/13/19 lorazepam 1 mg tablet 1 mg PO DAILY PRN #10 tab 07/18/19 lurasidone 40 mg tablet 40 mg PO QPM #90 tab 10/27/19 Allergies Allergy/AdvReac Type Severity Reaction Status Date / Time Penicillins [PENICILLINS] Allergy Severe Swelling Verified 11/08/19 16:59 of Lip/Tongue/Throat quetiapine AdvReac Intermediate oversedation Verified 11/08/19 16:August Alluna Sleep AdvReac Severe Difficulty Uncoded 10/27/19 08:00 Swallowing Review of Systems Constitutional Constitutional: Reports body ache(s), Reports daytime sleepiness and Reports lethargy Eyes Eyes: Reports system reviewed and no additional complaints, except as documented ENT Ears, Nose, Mouth, and Throat: Reports dizziness, Reports dry mouth and Reports disequilibrium Cardiovascular Cardiovascular: Reports chest pain, Denies chest pain with activity, Denies diaphoresis, Denies rapid heart rate, Denies pedal edema and Denies dyspnea on exertion Respiratory Respiratory: Denies cough, Denies dyspnea on exertion and Denies wheezing Gastrointestinal Gastrointestinal: Denies cramping, Reports nausea and Denies vomiting Musculoskeletal Musculoskeletal: Reports arthralgias, Denies deformity, Denies joint swelling, Reports muscle cramps and Reports muscle weakness Neurologic Neurologic: Reports dizziness, Denies convulsions, Reports paresthesias, Reports tremor(s) and Reports disequilibrium Psychiatric Psychiatric: Reports anxiety, Reports difficulty concentrating, Reports auditory hallucinations, Reports irritability, Denies homicidal ideation and Denies suicidal ideation Allergic/Immunologic Allergic/Immunologic: Denies wheezing Patient History Medical History Acute hyperglycemia (Acute) Atypical chest pain (Acute) CAD (coronary artery disease) (Chronic) Chronic left shoulder pain (Acute) Diabetes type 2, controlled (Chronic) HTN (hypertension) (Chronic) Hyperlipidemia (Chronic) Obstructive sleep apnea of adult (Chronic) Pulmonary embolism (Acute) Schizoaffective disorder (Chronic) Tardive dyskinesia (Acute) Surgical History Hx of CABG (Chronic) Family History Mother Coronary artery disease Father No problems noted. Social History marital status: unmarried,single details: lives with his parents household members: family lives independently: Yes caregiver/support person: Yes housing: house pets and animals: Yes Smoking Status: Former smoker alcohol intake: never substance use type: does not use Smoking Status: Former smoker alcohol intake frequency: 0-2 drinks per day Substance Use Type: does not use Exam Narrative Exam Narrative: General: Healthy appearing, in no acute distress. Able to give a complete and coherent history. Well-nourished well-developed HEENT: Dry mucous membranes, normal sclera with reactive pupils, Neck: No JVD, supple Respiratory: Lungs are clear to auscultation, no wheezing no rales no rhonchi. Full and symmetrical air movement Chest: Tender to palpation over the xiphoid process without any skin changes Cardiac: Regular rate and rhythm no murmurs no bruits Abdomen: Soft, obese, nontender good bowel tones, no flank pain Skin: Warm and dry, no rashes Neurologic: Grossly neurologically intact with no obvious asymmetries or abnormalities Extremities: No trauma, well perfused Psych: Cooperative, flat affect, poor eye contact, fluent speech Initial Vital Signs Initial Vital Signs: Vital Signs Temperature 97.8 F 11/08/19 16:59 Pulse Rate 67 11/08/19 16:59 Respiratory Rate 15 11/08/19 16:59 Blood Pressure 112/56 L 11/08/19 16:59 Pulse Oximetry 99 11/08/19 16:59 Course Orders Ordered: ED Orders 11/08/19 17:08 CT Stroke Stat 11/08/19 17:30 Basic Metabolic Panel Stat Complete Blood Count AUTO DIFF Stat Partial Thromboplastin Time Stat Prothrombin Time INR Stat Valproic Acid (Depakene) Total Stat 11/08/19 18:06 Urine Drug Screen, Rapid Stat EKG-12 Lead Stat 11/08/19 18:41 Magnesium Stat Troponin & CK Cardiac Panel Stat Sodium Chloride (Normal Saline 0.9%) 1,000 mls @ 150 mls/hr IV CONT JOSE L Last Admin: 11/08/19 21:07 Dose: Not Given Documented by: VINICIUS Discontinued Medications Divalproex Sodium (Depakote) 1,500 mg PO NOW ONE Stop: 11/08/19 23:07 Last Admin: 11/09/19 00:05 Dose: 1,500 mg Documented by: VINICIUS Sodium Chloride (Normal Saline 0.9%) 1,000 mls @ 1,000 mls/hr IV BOLUS ONE Stop: 11/08/19 21:39 Last Infusion: 11/08/19 22:48 Dose: 0 mls/hr Documented by: Admin: 11/08/19 21:06 Dose: 1,000 mls/hr Documented by: VINICIUS Insulin Glargine (Lantus (Vial)) 35 unit SUBCUT NOW ONE Stop: 11/09/19 00:09 Last Admin: 11/09/19 00:25 Dose: 35 unit Documented by: VINICIUS Cosigned by: ANAIDFARSrinivas Oxycodone/Acetaminophen (Percocet 5/325) 1 tab PO NOW ONE Stop: 11/08/19 20:41 Last Admin: 11/08/19 21:07 Dose: 1 tab Documented by: VINICIUS Oxycodone/Acetaminophen (Percocet 5/325) 1 tab PO NOW ONE Stop: 11/09/19 00:46 Potassium Chloride (Klor-Con M20) 20 meq PO NOW ONE Stop: 11/08/19 20:41 Last Admin: 11/08/19 21:07 Dose: 20 meq Documented by: VINICIUS Rivaroxaban (Xarelto) 20 mg PO NOW ONE Stop: 11/08/19 23:07 Last Admin: 11/08/19 23:49 Dose: 20 mg Documented by: VINICIUS Tramadol HCl (Ultram) 100 mg PO NOW ONE Stop: 11/08/19 20:41 Last Admin: 11/08/19 21:07 Dose: 100 mg Documented by: VINICIUS Vital Signs Vital signs: Vital Signs - 8 hr 11/08/19 16:59 11/08/19 18:09 11/08/19 18:29 Temperature 97.8 F Pulse Rate 67 63 60 Respiratory Rate 15 9 L 21 Blood Pressure 112/56 L 130/72 Pulse Oximetry 99 98 99 11/08/19 18:30 11/08/19 19:00 11/08/19 19:30 Temperature Pulse Rate 60 61 61 Respiratory Rate 24 17 18 Blood Pressure 133/72 128/61 120/62 Pulse Oximetry 99 97 99 11/08/19 20:00 11/08/19 20:30 11/08/19 21:00 Temperature Pulse Rate 60 60 64 Respiratory Rate 19 16 22 Blood Pressure 121/64 121/63 127/70 Pulse Oximetry 99 98 98 11/08/19 21:30 11/08/19 22:00 11/08/19 22:30 Temperature Pulse Rate 63 64 63 Respiratory Rate 14 19 19 Blood Pressure 131/68 128/68 122/67 Pulse Oximetry 97 95 97 11/08/19 23:00 11/08/19 23:39 Temperature Pulse Rate 62 61 Respiratory Rate 22 20 Blood Pressure 126/62 125/61 Pulse Oximetry 97 96 MDM - Neuro Symptoms/Deficit Medical Records Attestation: I reviewed the patient's medical records. Lab Data Attestation: I reviewed the patient's lab results. Lab results narrative: New acute renal failure. September 19, 2019 creatinine was 0.9 Result diagrams: 11/08/19 17:30 11/08/19 17:30 Labs: Lab Results 11/08/19 11/08/19 11/08/19 Range/Units 17:30 17:30 17:30 WBC 7.0 (4.5-11.0) X10^3/uL RBC 4.13 L (4.5-5.9) X10^6/uL Hgb 12.5 L (13.5-17.5) g/dL Hct 35.7 L (41-53) % MCV 86.4 (80-100) fL MCH 30.2 (26-34) PG MCHC 34.9 (30-36) % RDW 14.4 (11.6-14.8) % Plt Count 162 (150-400) X10^3/uL Neut % (Auto) 49.1 L (50-75) % Lymph % (Auto) 37.4 (25-40) % Gaston % (Auto) 10.8 (3-14) % Eos % (Auto) 2.4 (2-4) % Baso % (Auto) 0.3 (0-2) % Neut # (Auto) 3400 (6858-3643) /uL Lymph # (Auto) 2600 (6153-5945) /uL Gaston # (Auto) 800 (0-900) /uL Eos # (Auto) 200 (0-450) /uL Baso # (Auto) 0 (0-100) /uL PT 11.9 (10.1-12.7) SECONDS INR 1.0 (0.9-1.3) APTT 32 D (26.4-36.2) SECONDS Sodium 131 L (137-145) mmol/L Potassium 3.1 L (3.4-5.1) mmol/L Chloride 93 L (98-107) mmol/L Carbon Dioxide 27 (22-32) mmol/L BUN 77 H (9-20) mg/dL Creatinine 2.57 H (0.66-1.25) mg/dL Estimated GFR 25.7 L (>60) mL/min BUN/Creatinine Ratio 30.0 H (6-22) Glucose 175 H (70-100) mg/dL Calcium 9.0 (8.4-10.2) mg/dL Magnesium (1.6-2.3) mg/dL Total Creatine Kinase (55-170) U/L CK-MB (CK-2) (<2.37) ng/mL CK-MB (CK-2) Rel Index (1.5-5.0) % Troponin I (0.01-0.034) ng/mL COVID-19 PCR (Negative) 11/08/19 11/08/19 Range/Units 18:41 21:20 WBC (4.5-11.0) X10^3/uL RBC (4.5-5.9) X10^6/uL Hgb (13.5-17.5) g/dL Hct (41-53) % MCV (80-100) fL MCH (26-34) PG MCHC (30-36) % RDW (11.6-14.8) % Plt Count (150-400) X10^3/uL Neut % (Auto) (50-75) % Lymph % (Auto) (25-40) % Gaston % (Auto) (3-14) % Eos % (Auto) (2-4) % Baso % (Auto) (0-2) % Neut # (Auto) (8660-4287) /uL Lymph # (Auto) (5461-8727) /uL Gaston # (Auto) (0-900) /uL Eos # (Auto) (0-450) /uL Baso # (Auto) (0-100) /uL PT (10.1-12.7) SECONDS INR (0.9-1.3) APTT (26.4-36.2) SECONDS Sodium (137-145) mmol/L Potassium (3.4-5.1) mmol/L Chloride (98-107) mmol/L Carbon Dioxide (22-32) mmol/L BUN (9-20) mg/dL Creatinine (0.66-1.25) mg/dL Estimated GFR (>60) mL/min BUN/Creatinine Ratio (6-22) Glucose (70-100) mg/dL Calcium (8.4-10.2) mg/dL Magnesium 2.1 (1.6-2.3) mg/dL Total Creatine Kinase 671 H (55-170) U/L CK-MB (CK-2) 4.22 H (<2.37) ng/mL CK-MB (CK-2) Rel Index 0.6 L (1.5-5.0) % Troponin I 0.014 (0.01-0.034) ng/mL COVID-19 PCR Negative (Negative) Point of Care Testing Glucose POC 235 Urine Dip Bedside Urine Glucose Negative Bedside Urine Bilirubin - Negative Bedside Urine Ketone - Negative Bedside Urine Occult Blood +/- Bedside Urine pH 6.0 Bedside Urine Protein - Negative Bedside Urine Urobilinogen - Negative Bedside Urine Nitrite - Negative Bedside Urine Leukocytes - Negative Esterase MDM Narrative Medical decision making narrative: 59-year-old gentleman with new acute renal failure with a creatinine jumping from 0.9-2.57. Unclear etiology for this. Seems volume neutral at this point is given additional fluid. Potassium is 3.1. Of note Latuda was recently added to his medication regimen. He is on a plethora of medications and cross reactions could certainly be causing the kidney dysfunction. He also is having more difficulty with his psychiatric issues and feels that ?the voices are winning? Beds are available at [facility]. Coviid test is negative today. I have spoken with Dr. Cohen, nephrology. His recommendation was IV fluid and a renal ultrasound. Renal ultrasound will need to be facilitated once he is over to [facility]. Patient is also complaining of chest pain and does have a long history of cardiac issues however it is specifically pain with palpation around his xiphoid process and cardiac indicators are otherwise unremarkable. 1250am covid negative. Accepted by [facility] hospitalist, Dr Toledo. Will arrange for transport Discharge Plan Departure Patient Disposition: [facility] Clinical Impression: Hypokalemia Acute renal failure Qualifiers: Acute renal failure type: unspecified Qualified Code(s): N17.9 - Acute kidney failure, unspecified Schizoaffective disorder Qualifiers: Schizoaffective disorder type: depressive Qualified Code(s): F25.1 - Schizoaffective disorder, depressive type Prescriptions: No Action lisinopril 10 mg tablet 40 mg PO DAILY RF: 0 gabapentin 300 mg capsule 300 mg PO TID RF: 0 insulin glargine 100 unit/mL (3 mL) insulin pen 35 unit Sub-Q BID RF: 0 fenofibrate 160 mg tablet 160 mg PO DAILY RF: 0 tramadol 50 mg tablet 50 mg PO BID MDD 2 tabs PRN (Reason: Pain (Scale Score 4-6)) RF: 0 lorazepam 1 mg tablet 1 mg PO DAILY PRN (Reason: agitation) Qty: 10 RF: 0 lurasidone 40 mg tablet 40 mg PO QPM Qty: 90 RF: 0 metformin [Glucophage XR] 500 MG tablet extended release 24 hr 500 mg PO BIDCC Qty: 60 RF: 0 fluoxetine 40 mg capsule 80 mg PO DAILY Qty: 180 RF: 3 divalproex [Depakote] 500 mg tablet,delayed release (DR/EC) 1,500 mg PO BEDTIME Qty: 360 RF: 0 nitroglycerin [Nitrostat] 0.4 mg Tablet, Sublingual 0.4 mg Sublingual Q5 MIN PRN PRN (Reason: Chest Pain) RF: 0 atorvastatin 40 mg Tablet 40 mg PO BEDTIME RF: 0 levothyroxine [Synthroid] 75 mcg Tablet 75 mcg PO DAILY RF: 0 insulin aspart U-100 100 unit/mL Insulin Pen See Rx Instructions .ROUTE .COMPLEX RF: 0 aspirin 81 mg Tablet,Delayed Release (Dr/Ec) 81 mg PO DAILY RF: 0 Xarelto 20 mg Tablet 20 mg PO QPM RF: 0 cholecalciferol (vitamin D3) [Vitamin D3] 5,000 unit Tablet 5,000 unit PO DAILY RF: 0 hydrochlorothiazide 25 mg Tablet 25 mg PO DAILY RF: 0 metoprolol succinate [Toprol XL] 25 MG tablet extended release 24 hr 25 mg PO DAILY RF: 0 omeprazole 20 mg Capsule,Delayed Release(Dr/Ec) 20 mg PO DAILY RF: 0 divalproex 500 mg Tablet Extended Release 24 Hr 500 mg PO QAM RF: 0 glucose 4 gram tablet,chewable 4 gram PO Q15M PRN (Reason: hypoglycemia) Qty: 20 RF: 0 alprazolam 0.5 mg Tablet 0.5 mg PO BID PRN (Reason: Anxiety) RF: 0 aripiprazole 30 mg Tablet 30 mg PO DAILY RF: 0 Referrals: Sandra Garland [Primary Care Provider] -
[2019-11-08] MEDS: SODIUM CHLORIDE 0.9% 1,000 ML 1000 ML IV (21:06)
[2019-11-08] MEDS: OXYCODONE/ACETAMINOPHEN 5/325 TABLET 1 TAB PO (21:07)
[2019-11-08] MEDS: POTASSIUM CHLORIDE 20 MEQ TAB PO (21:07)
[2019-11-08] MEDS: TRAMADOL 50 MG TABLET 100 MG PO (21:07)
[2019-11-08 22:20] LABS: COVID19 -Nasal RAPID Negative (Negative)
[2019-11-08] MEDS: RIVAROXABAN 10 MG TABLET 20 MG PO (23:49)
[2019-11-09] VITALS: BP 103/59; PULSE 61; RESP 19; O2SAT 97
[2019-11-09] MEDS: DIVALPROEX DR 250 MG TABLET 1500 MG PO (00:05)
[2019-11-09] MEDS: INSULIN GLARGINE 100 UNIT/ML 10ML VIAL 35 UNIT SUBCUT (00:25)
[2019-11-09 00:30] VITALS: BP 111/57; PULSE 62; RESP 15; O2SAT 95
[2019-11-09] MEDS: OXYCODONE/ACETAMINOPHEN 5/325 TABLET 1 TAB PO (00:57)
[2019-11-09 01:00] VITALS: BP 126/58; PULSE 63; RESP 21; O2SAT 98
[2019-11-09 01:30] VITALS: BP 121/57; PULSE 61; RESP 17; RESP 20; O2SAT 96
[2019-11-10 07:09] LABS: Valproic Acid (Depakene) Total 59 ug/mL (50-100)
== END 2019-11-09 02:10 | disposition short-term general hospital (02) ==
PROVIDERS: Emergency Provider Emergency Medicine; PCP Family Medicine
DX: E87.6 Hypokalemia (principal); N17.9 Acute kidney failure, unspecified; F25.1 Schizoaffective disorder, depressive type; R11.0 Nausea; R25.2 Cramp and spasm; R07.9 Chest pain, unspecified; R42 Dizziness and giddiness; I25.10 Atherosclerotic heart disease of native coronary artery without angina pectoris; Z79.01 Long term (current) use of anticoagulants
CPT/HCPCS: 36415; 70450; 80048; 80164; 81003; 82550; 82553; 82962; 83735; 84484; 85025; 85610; 85730; 87635; 93005; 96360; 96361; 96372; 99285

== ENCOUNTER 2019-12-06 00:55 | Emergency (ER) | payer OTHER, SELFPAY ==
[2019-07-13 01:30] VITALS: BMI 42.5
[2019-12-06] VITALS (9 sets, daily range): BP systolic 151–165; BP diastolic 72–75; PULSE 51–56; RESP 14–22; TEMP 36.4; O2SAT 96–99; BMI 43.5
--- NOTE | 2019-12-06 02:00 | PC.NURSE ---
Patient using call light and reporting new onset chest pain rates as 5/10. States it feels like acid reflux or anxiety. Patient denies pain radiation on SOB. Patient placed on heart monitor and ECG performed. Provider notified.
--- NOTE | 2019-12-06 03:00 | ED_ITS ---
HPI - Extremity Injury (Lower) General Chief Complaint: Extremity Injury, Lower Stated Complaint: left knee pain, problems with blood sugar Time Seen by Provider: 12/06/19 02:44 Source: patient Mode of arrival: Family Vehicle Limitations: no limitations History of Present Illness HPI Narrative: Patient with history schizoaffective disorder/coronary disease complains of left knee pain. Patient seen here November 08, 2019 for multiple complaints including reproduce the chest pain and acute renal injury. Was transferred to [facility]. Patient states he has been doing very well since that admission. However his left knee pain continues since last month. Has sternal chest pain that is reproducible, pain is daily, for the past 2 years. He has had stress test and heart catheterization that were normal according to him at [facility]. These were done in the last 2 years. Patient said his chest pain is not new. It is reproducible on palpation of the sternum at the lower border patient drove himself here tonight. Has been limping in order to get around. Including getting into the car and driving himself here. He states he can get a driver's education instructor later this morning. Patient states that he has seen orthopedic doctor in [place] twice in the past month however no plan so far for surgery but needs to get MRI. Patient states he had a knee brace but it broke. He does have crutches at home. Patient states he can get a driver's education instructor earlier this morning Related Data Home Medications Medication Instructions Recorded Confirmed metformin [Glucophage XR] 500 mg PO BIDCC #60 tab 12/25/16 11/30/19 atorvastatin 40 mg PO BEDTIME 10/12/17 11/30/19 insulin aspart U-100 See Rx Instructions .ROUTE .COMPLEX 10/12/17 11/30/19 levothyroxine [Synthroid] 75 mcg PO DAILY 10/12/17 11/30/19 nitroglycerin [Nitrostat] 0.4 mg SUBLINGUAL Q5 MIN PRN PRN 10/12/17 11/30/19 hydrochlorothiazide 25 mg PO DAILY 05/26/18 11/30/19 metoprolol succinate [Toprol XL] 25 mg PO DAILY 05/26/18 11/30/19 fenofibrate 160 mg tablet 160 mg PO DAILY 12/16/18 11/30/19 tramadol 50 mg tablet 50 mg PO BID PRN MDD 2 tabs 12/16/18 11/30/19 omeprazole 20 mg PO DAILY 12/20/18 11/30/19 Xarelto 20 mg PO QPM 02/16/19 11/30/19 aspirin 81 mg PO DAILY 02/16/19 11/30/19 divalproex 500 mg PO QAM 07/13/19 11/30/19 insulin glargine 100 unit/mL (3 35 unit SUB-Q BID ml 08/25/19 11/30/19 mL) subcutaneous pen lisinopril 10 mg tablet 40 mg PO DAILY 08/25/19 11/30/19 gabapentin 300 mg capsule 600 mg PO TID cap 11/29/19 11/30/19 ergocalciferol (vitamin D2) 1,250 1,250 mcg PO QWEEK 11/30/19 11/30/19 mcg (50,000 unit) capsule fluoxetine 40 mg capsule 40 mg PO DAILY 11/30/19 11/30/19 Previous Rx's Medication Instructions Recorded divalproex 500 mg tablet,delayed 1,500 mg PO BEDTIME #360 tab 04/21/19 release lorazepam 1 mg tablet 1 mg PO DAILY PRN #10 tab 07/18/19 lurasidone 40 mg tablet 40 mg PO QPM #90 tab 12/05/19 Allergies Allergy/AdvReac Type Severity Reaction Status Date / Time Penicillins [PENICILLINS] Allergy Severe Swelling Verified 11/29/19 09:45 of Lip/Tongue/Throat quetiapine AdvReac Intermediate oversedation Verified 11/29/19 09:August Alluna Sleep AdvReac Severe Difficulty Uncoded 11/29/19 09:45 Swallowing Review of Systems Review of Systems Narrative: GENERAL: Denies chills, fatigue, malaise, fever, sweats. HEENT: Denies sinus pain, ear pain, sore throat, difficulty swallowing, dizziness. RESPIRATORY: Denies dyspnea, cough, wheezing, hemoptysis, sputum. CARDIOVASCULAR: Complains of chest pain, denies palpitations, orthopnea, edema, GASTROINTESTINAL: Denies nausea, vomiting, abdominal pain, diarrhea, constipation, melena. : Denies dysuria, frequency, incontinence, hematuria, urinary retention. MUSCULOSKELETAL: denies weakness, complains of joint pain, or bony pain SKIN: Denies rash, skin lesions, or other NEUROLOGIC: Denies weakness, headache, numbness, change in speech, confusion, seizures, incoordination. PSYCHIATRIC: No concerning psychosocial issues. ROS Unobtainable: All systems reviewed & are unremarkable except as noted in HPI and below Patient History Medical History Acute hyperglycemia (Resolved) Atypical chest pain (Acute) CAD (coronary artery disease) (Chronic) Chest pain, rule out acute myocardial infarction (Acute) Chronic left shoulder pain (Acute) Diabetes type 2, controlled (Chronic) HTN (hypertension) (Chronic) Hyperlipidemia (Chronic) Morbid obesity with body mass index (BMI) of 40.0 to 49.9 (Chronic) Obstructive sleep apnea of adult (Chronic) Pulmonary embolism (Acute) Schizoaffective disorder (Chronic) Tardive dyskinesia (Chronic) Surgical History Hx of CABG (Chronic) Family History Mother Coronary artery disease Father No problems noted. Social History marital status: unmarried,single details: lives with his parents household members: family lives independently: Yes caregiver/support person: Yes housing: house pets and animals: Yes Smoking Status: Former smoker alcohol intake: never substance use type: does not use Smoking Status: Former smoker alcohol intake frequency: 0-2 drinks per day Substance Use Type: does not use Exam Narrative Exam Narrative: GENERAL: patient appears stated age. Well-nourished, well- developed patient, in no distress, not toxic HEAD: Atraumatic. Normocephalic. EYES: Pupils equal round and reactive. Extraocular motions intact. No scleral icterus. No injection or drainage. ENT: Nose without bleeding, purulent drainage. Throat without erythema, tonsillar hypertrophy or exudate. Airway patent. NECK: Trachea midline. Non tender CARDIOVASCULAR: Regular rate and rhythm without murmurs, gallops, or rubs. Reproducible sternal tenderness on palpation. RESPIRATORY: Clear to auscultation. Breath sounds equal bilaterally. No wheezes, rales, or rhonchi. GASTROINTESTINAL: Abdomen soft, non-tender, nondistended. EXTREMITIES: Patient in shorts, shoes and socks off. Examination left lower e xtremity. Ankle and foot nontender. Light touch intact to foot and toes. Strong pedal pulse. Able to actively bend at the left knee but with pain and slowly. There is pain of the left knee with anterior posterior medial lateral and rotational stress of the left leg. No laxity. NEURO: AOx3. SKIN: No rash or erythema of visible areas PSYCH: Not anxious, is cooperative Initial Vital Signs Initial Vital Signs: Vital Signs Temperature 97.5 F L 12/06/19 01:05 Pulse Rate 56 L 12/06/19 01:05 Respiratory Rate 18 12/06/19 01:05 Blood Pressure 165/75 H 12/06/19 01:05 Pulse Oximetry 99 12/06/19 01:05 Course Orders Ordered: Discontinued Medications Hydrocodone Bitart/Acetaminophen ([place] 5/325) 1 tab PO NOW ONE Stop: 12/06/19 03:24 Last Admin: 12/06/19 03:28 Dose: 1 tab Documented by: ZULEIMA Ondansetron HCl (Zofran Odt) 4 mg SL NOW ONE Stop: 12/06/19 03:24 Last Admin: 12/06/19 03:28 Dose: 4 mg Documented by: ZULEIMA Reevaluation(s) Reevaluation #1: Patient pain controlled. Patient is sleeping. Time: 04:10 Vital Signs Vital signs: Vital Signs - 8 hr 12/06/19 01:05 12/06/19 02:56 12/06/19 03:30 Temperature 97.5 F L Pulse Rate 56 L 54 L 53 L Respiratory Rate 18 18 19 Blood Pressure 165/75 H Pulse Oximetry 99 98 98 12/06/19 04:00 Temperature Pulse Rate 53 L Respiratory Rate 16 Blood Pressure Pulse Oximetry 96 [facility] - Extremity Injury (Lower) Differential Diagnosis Differential diagnosis: Likely other (Knee sprain/strain) Medical Records Attestation: I reviewed the patient's medical records. Lab Data Labs: Point of Care Testing Glucose POC 177 Imaging Data X-ray left knee: My Impression: Slight narrowing medial compartment ECG Data Attestation: I personally reviewed and interpreted this ECG as follows: Interpretation: Sinus bradycardia rate [address] elevation or depression. EKG unchanged from November 08, 2019 at 6:11 p.m. [facility] Narrative Medical decision making narrative: No blood work indicated this time. Patient complains of left knee pain and the chest pain is reproducible and is chronic. No cardiac enzymes time. Review of past records. Patient was admitted last time for multiple complaints including reproducible chest pain complaint. As it is continued to be reproducible chest pain today. This is chronic. Exam of lower extremity no calf tenderness no palpable cords. No calf complaint. No Doppler indicated at this time. Discharge Plan Departure Patient Disposition: Home Clinical Impression: Knee pain, left Qualifiers: Chronicity: unspecified Qualified Code(s): M25.562 - Pain in left knee Discharge Date/Time: 12/06/19 06:19 Instructions: DI for Knee Pain Activity Restrictions/Additional Instructions: No driving this morning. See her orthopedic doctor within a week for recheck and to schedule MRI of your left knee. May continue home tramadol for pain. Return if worse. Use Dank wrap and crutches when walking. Prescriptions: No Action lisinopril 10 mg tablet 40 mg PO DAILY RF: 0 gabapentin 300 mg capsule 600 mg PO TID RF: 0 insulin glargine 100 unit/mL (3 mL) insulin pen 35 unit Sub-Q BID RF: 0 fenofibrate 160 mg tablet 160 mg PO DAILY RF: 0 tramadol 50 mg tablet 50 mg PO BID MDD 2 tabs PRN (Reason: Pain (Scale Score 4-6)) RF: 0 lorazepam 1 mg tablet 1 mg PO DAILY PRN (Reason: agitation) Qty: 10 RF: 0 lurasidone 40 mg tablet 40 mg PO QPM Qty: 90 RF: 0 metformin [Glucophage XR] 500 MG tablet extended release 24 hr 500 mg PO BIDCC Qty: 60 RF: 0 divalproex [Depakote] 500 mg tablet,delayed release (DR/EC) 1,500 mg PO BEDTIME Qty: 360 RF: 0 nitroglycerin [Nitrostat] 0.4 mg Tablet, Sublingual 0.4 mg Sublingual Q5 MIN PRN PRN (Reason: Chest Pain) RF: 0 atorvastatin 40 mg Tablet 40 mg PO BEDTIME RF: 0 levothyroxine [Synthroid] 75 mcg Tablet 75 mcg PO DAILY RF: 0 insulin aspart U-100 100 unit/mL Insulin Pen See Rx Instructions .ROUTE .COMPLEX RF: 0 aspirin 81 mg Tablet,Delayed Release (Dr/Ec) 81 mg PO DAILY RF: 0 Xarelto 20 mg Tablet 20 mg PO QPM RF: 0 hydrochlorothiazide 25 mg Tablet 25 mg PO DAILY RF: 0 metoprolol succinate [Toprol XL] 25 MG tablet extended release 24 hr 25 mg PO DAILY RF: 0 omeprazole 20 mg Capsule,Delayed Release(Dr/Ec) 20 mg PO DAILY RF: 0 divalproex 500 mg Tablet Extended Release 24 Hr 500 mg PO QAM RF: 0 fluoxetine 40 mg capsule 40 mg PO DAILY RF: 0 ergocalciferol (vitamin D2) 1,250 mcg (50,000 unit) capsule 1,250 mcg PO QWEEK RF: 0 Referrals: Sandra Garland [Primary Care Provider] -
--- NOTE | 2019-12-06 03:00 | DI.RAD.S_ITS ---
PROCEDURE: XR KNEE LT 3V INDICATIONS: Pain and swelling TECHNIQUE: 3 views of the knee were acquired. COMPARISON: None. FINDINGS: Bones: No fractures or dislocations. No suspicious bony lesions. Mild tricompartment osteoarthritis. Soft tissues: No joint effusion. No suspicious soft tissue calcifications. Vascular clips in the medial aspect of the proximal left calf. IMPRESSION: No fracture. No acute osseous lesion. If symptoms and/or clinical suspicion for pathology persists, further assessment with repeat radiographs (7-10 days) or advanced imaging (e.g. CT, MRI or bone scan) may be helpful. Dictated by: Latosha Turner MD, PhD on 12/06/2019 at 9:09 Approved by: Laotsha Turner MD, PhD on 12/06/2019 at 9:10
[2019-12-06] MEDS: HYDROCODONE/ACET 5/325 TABLET 1 TAB PO (03:28)
[2019-12-06] MEDS: ONDANSETRON 4 MG ODT SL (03:28)
--- NOTE | 2019-12-06 06:15 | PC.NURSE ---
Patient awoken and agreeable to using [employer] to go home. Called [facility] to arrange transport.
== END 2019-12-06 06:19 | disposition home or self-care (01) ==
PROVIDERS: Emergency Provider Emergency Medicine; PCP Family Medicine
DX: M25.562 Pain in left knee (principal); R07.9 Chest pain, unspecified
CPT/HCPCS: 73562; 82962; 93005; 99283; 99284

== ENCOUNTER 2020-03-03 16:38 | Emergency (ER) | payer OTHER, SELFPAY ==
[2019-07-13 01:30] VITALS: BMI 42.5
[2020-03-03 16:52] VITALS: BP 151/65; PULSE 65; RESP 20; TEMP 36.4; O2SAT 98; BMI 42.9
[2020-03-03 17:34] VITALS: PULSE 60
[2020-03-03] MEDS: MORPHINE 4 MG/ML INJ IV ×2 (18:59→20:18)
[2020-03-03 19:05] LABS: Add Manual Diff / Slide Review NO; Basophils Absolute Auto 100 /uL (0-100); Basophils Percent Auto 1.4 % (0-2); Eosinophils Absolute Auto 100 /uL (0-450); Eosinophils Percent Auto 1.6 % (2-4); Hematocrit 37.2 % (41-53); Hemoglobin 12.5 g/dL (13.5-17.5); Lymphocytes Absolute Auto 2300 /uL (1100-4500); Lymphocytes Percent Auto 32.9 % (25-40); Mean Corpuscular HGB Conc 33.7 % (30-36); Mean Corpuscular Hemoglobin 30.6 PG (26-34); Mean Corpuscular Volume 90.7 fL (80-100); Monocytes Absolute Auto 600 /uL (0-900); Monocytes Percent Auto 7.9 % (3-14); Neutrophils Absolute Auto 4000 /uL (1500-7000); Neutrophils Percent Auto 56.2 % (50-75); Platelet Count 157 X10^3/uL (150-400); Red Cell Distribution Width 15.2 % (11.6-14.8); White Blood Cell Count 7.1 X10^3/uL (4.5-11.0)
[2020-03-03 19:15] LABS: Lactate (Lactic Acid) 1.9 mmol/L (0.7-2.1)
[2020-03-03 19:23] LABS: BUN Creatinine Ratio 26.1 (6-22); Blood Urea Nitrogen 29 mg/dL (9-20); C-Reactive Protein Quant 0.7 mg/dL (<1.0); Calcium 9.1 mg/dL (8.4-10.2); Carbon Dioxide 29 mmol/L (22-32); Chloride 103 mmol/L (98-107); Estimated Glomerular Filt Rate > 60.0 mL/min (>60); Glucose 172 mg/dL (70-100); HEMOLYSIS < 15 (0-50); Sodium 139 mmol/L (137-145)
[2020-03-03 19:29] LABS: D Dimer 263 ng/mL (<230)
[2020-03-03 19:41] LABS: Procalcitonin < 0.05 ng/mL (<0.5)
[2020-03-03 19:47] LABS: Erythrocyte Sedimentation Rate 15 MM/HR (0-15)
[2020-03-03 20:01] VITALS: BP 161/77; PULSE 66; O2SAT 100
[2020-03-03] MEDS: TRAMADOL 50 MG PREPACK 1 BOTTLE MISC (20:17)
--- NOTE | 2020-03-03 20:21 | ED_ITS ---
HPI - Extremity Problem <GENE Pena - Last Filed: 03/03/20 20:49> General Chief complaint: Extremity Problem,Nontraumatic Stated complaint: left knee pain Time Seen by Provider: 03/03/20 18:00 Source: patient Mode of arrival: Family Vehicle Limitations: no limitations History of Present Illness HPI Narrative: This is a 59-year-old male, former smoker, who has past medical history significant for pulmonary embolism who is currently taking Xarelto, hypertension, diabetes, GERD, schizophrenia, tardive dyskinesia presents to ED with increased left knee pain. Patient is currently see pain management clinic and currently takes tramadol 50 mg 2 tabs at night for pain and to help with sleep but this has not been sufficient. Patient had MRI at [facility] 3 days ago but does not know the results yet. Patient was seen by Dr. Pappas and received injection into his knee which helped with pain temporarily. Patient reports feeling hot and sweaty today. Denies chills, nausea or vomiting. Patient denies chest pain, dyspnea, or dizziness. Patient reports mild warmth and swelling around the left knee. Patient reports pain increases with ambulation. He reports has intact sensation distally and is able to wiggle his toes. Patient reports has been using ice packs and hot showers without much improvement. Related Data Home Medications Medication Instructions Recorded Confirmed metformin [Glucophage XR] 500 mg PO BIDCC #60 tab 12/25/16 02/06/20 atorvastatin 40 mg PO BEDTIME 10/12/17 02/06/20 insulin aspart U-100 See Rx Instructions .ROUTE .COMPLEX 10/12/17 02/06/20 levothyroxine [Synthroid] 75 mcg PO DAILY 10/12/17 02/06/20 nitroglycerin [Nitrostat] 0.4 mg SUBLINGUAL Q5 MIN PRN PRN 10/12/17 02/06/20 hydrochlorothiazide 25 mg PO DAILY 05/26/18 02/06/20 metoprolol succinate [Toprol XL] 25 mg PO DAILY 05/26/18 02/06/20 fenofibrate 160 mg tablet 160 mg PO DAILY 12/16/18 02/06/20 tramadol 50 mg tablet 50 mg PO BID PRN MDD 2 tabs 12/16/18 02/06/20 omeprazole 20 mg PO DAILY 12/20/18 02/06/20 Xarelto 20 mg PO QPM 02/16/19 02/06/20 aspirin 81 mg PO DAILY 02/16/19 02/06/20 insulin glargine 100 unit/mL (3 35 unit SUB-Q BID ml 08/25/19 02/06/20 mL) subcutaneous pen lisinopril 10 mg tablet 40 mg PO DAILY 08/25/19 02/06/20 gabapentin 300 mg capsule 600 mg PO TID cap 11/29/19 02/06/20 ergocalciferol (vitamin D2) 1,250 1,250 mcg PO QWEEK 11/30/19 02/06/20 mcg (50,000 unit) capsule Previous Rx's Medication Instructions Recorded fluoxetine 20 mg capsule 20 mg PO DAILY #90 cap 12/29/19 lurasidone 40 mg tablet 40 mg PO QPM #90 tab 01/16/20 divalproex 500 mg tablet,extended See Rx Instructions PO .COMPLEX 02/06/20 release 24 hr #360 tab lorazepam 1 mg tablet 1 mg PO DAILY PRN #10 tab 02/06/20 Allergies Allergy/AdvReac Type Severity Reaction Status Date / Time Penicillins [PENICILLINS] Allergy Severe Swelling Verified 03/03/20 16:52 of Lip/Tongue/Throat quetiapine AdvReac Intermediate oversedation Verified 03/03/20 16:August Alluna Sleep AdvReac Severe Difficulty Uncoded 03/03/20 16:52 Swallowing Review of Systems <GENE Pena - Last Filed: 03/03/20 20:49> Review of Systems Narrative: General: Denies (+) subjective fever, chills, fatigue, malaise, (+) sweats. HEENT: Denies sinus pain, ear pain, sore throat, difficulty swallowing, dizziness. Respiratory: Denies dyspnea, cough, wheezing, hemoptysis, sputum. Cardiovascular: Denies chest pain, palpitations, orthopnea, edema. Gastrointestinal: Denies nausea, vomiting, abdominal pain, diarrhea, constipation, melena. : Denies dysuria, frequency, incontinence, hematuria, urinary retention. Musculoskeletal: CH via Skin: See HPI Patient History <GENE Pena - Last Filed: 03/03/20 20:49> Medical History Acute hyperglycemia Atypical chest pain CAD (coronary artery disease) Chest pain, rule out acute myocardial infarction Chronic left shoulder pain Diabetes type 2, controlled HTN (hypertension) Hyperlipidemia Morbid obesity with body mass index (BMI) of 40.0 to 49.9 Obstructive sleep apnea of adult Pulmonary embolism Schizoaffective disorder Tardive dyskinesia Surgical History Hx of CABG Family History Mother Coronary artery disease Father No problems noted. Social History marital status: unmarried,single details: lives with his parents household members: family lives independently: Yes caregiver/support person: Yes housing: house pets and animals: Yes Smoking Status: Former smoker alcohol intake: never substance use type: does not use Smoking Status: Former smoker alcohol intake frequency: 0-2 drinks per day Substance Use Type: does not use Exam <GENE Pena - Last Filed: 03/03/20 20:49> Narrative Exam Narrative: GEN: Alert, oriented x 3, well nourished, and in moderate distress from pain. Head: Normal cephalic, atraumatic. No scalp or temporal tenderness, palpable mass or rash. EYES: Pupils are equal, round, and reactive to light and accommodation. Ext raocular muscles are intact bilaterally. There is no subconjunctival hemorrhage, exudate and sclera non-icteric. ENT: Hearing grossly intact. Airway patent. Neck: Trachea in midline. No JVD, non-tender without lymphadenopathy. No masses or thyroid megaly. Supple, non-tender and no meningeal signs. CARDIAC: Normal regular rate and rhythm without murmurs, gallops, or rubs. No chest wall tenderness. No peripheral edema, cyanosis or pallor. Capillary refill is less than 2 seconds. RESPIRATORY: Lungs are clear to auscultate bilaterally. No cough, wheezes, rales, or rhonchi. No stridor, respiratory distress, increase work of breathing, or accessary muscle used. ABD: Abdomen soft, nontender and non-distended. No guarding or rebound tenderness to palpate. Bowel sounds are normal in all 4 quadrants. There is no palpable masses or organomegaly. NEUROLOGICAL: Alert and oriented to place, time and person. Sensation and motor function intact bilaterally. No facial droops, dysphasia. PSYCHIATRIC: Good judgement and reason, without hallucinations, abnormal affect or abnormal behaviors during the examination. Patient is not suicidal. Initial Vital Signs Initial Vital Signs: Vital Signs Temperature 97.6 F 03/03/20 16:52 Pulse Rate 65 03/03/20 16:52 Respiratory Rate 20 03/03/20 16:52 Blood Pressure 151/65 H 03/03/20 16:52 Pulse Oximetry 98 03/03/20 16:52 Extrem Left lower extremity: knee Details: tenderness, swelling Location: of the patella, abnormal ROM Details: pain with active ROM and pain with passive ROM, knee ligament exam normal Details: anterior drawer test normal, valgus stress test normal, varus stress test normal and no pain with axial loading and warmth Location: of the entire knee joint; no deformity and foot Details: normal cap illary refill, toes with normal ROM, no edema, vascular exam Details: dorsalis pedis pulse present and motor-sensory exam Details: light-touch normal; no tenderness <Tsering Fisher DO - Last Filed: 03/04/20 05:46> Initial Vital Signs Initial Vital Signs: Vital Signs Temperature 97.6 F 03/03/20 16:52 Pulse Rate 65 03/03/20 16:52 Respiratory Rate 20 03/03/20 16:52 Blood Pressure 151/65 H 03/03/20 16:52 Pulse Oximetry 98 03/03/20 16:52 Scores <GENE Pena - Last Filed: 03/03/20 20:49> GCS [place] coma scale eye opening: Spontaneous [place] coma scale verbal response: Orientated [place] coma scale motor response: Obey commands [place] coma scale total score: 15 qSOFA Altered Mental Status (GCS <15): No Respiratory rate greater than/equal to 22: No Systolic blood pressure less than or equal to 100: No qSOFA Total: 0 0-1 Not High Risk 1-3 High risk Course <GENE Pena - Last Filed: 03/03/20 20:49> Orders Ordered: Discontinued Medications Morphine Sulfate (Morphine 4 Mg/Ml Inj) 4 mg IV NOW ONE Stop: 03/03/20 18:41 Last Admin: 03/03/20 18:59 Dose: 4 mg Documented by: NU Morphine Sulfate (Morphine 4 Mg/Ml Inj) 4 mg IV NOW ONE Stop: 03/03/20 20:03 Last Admin: 03/03/20 20:18 Dose: 4 mg Documented by: JANETH Tramadol HCl (Tramadol 50 Mg Prepack) 1 bottle MISC SEEINSTR ONE Stop: 03/03/20 20:03 Last Admin: 03/03/20 20:17 Dose: 1 bottle Documented by: JANETH Vital Signs Vital signs: Vital Signs - 8 hr 03/03/20 16:52 03/03/20 17:34 03/03/20 20:01 Temperature 97.6 F Pulse Rate 65 66 Pulse Rate [Left Dorsalis Pedis] 60 Respiratory Rate 20 Blood Pressure 151/65 H 161/77 H Pulse Oximetry 98 100 <Tsering Fisher DO - Last Filed: 03/04/20 05:46> Orders Ordered: Discontinued Medications Morphine Sulfate (Morphine 4 Mg/Ml Inj) 4 mg IV NOW ONE Stop: 03/03/20 18:41 Last Admin: 03/03/20 18:59 Dose: 4 mg Documented by: NU Morphine Sulfate (Morphine 4 Mg/Ml Inj) 4 mg IV NOW ONE Stop: 03/03/20 20:03 Last Admin: 03/03/20 20:18 Dose: 4 mg Documented by: JANETH Tramadol HCl (Tramadol 50 Mg Prepack) 1 bottle MISC SEEINSTR ONE Stop: 03/03/20 20:03 Last Admin: 03/03/20 20:17 Dose: 1 bottle Documented by: JANETH Vital Signs Vital signs: Vital Signs - 8 hr 03/03/20 16:52 03/03/20 17:34 03/03/20 20:01 Temperature 97.6 F Pulse Rate 65 66 Pulse Rate [Left Dorsalis Pedis] 60 Respiratory Rate 20 Blood Pressure 151/65 H 161/77 H Pulse Oximetry 98 100 MDM - Extremity (Nontraumatic) <GENE Pena - Last Filed: 03/03/20 20:49> Differential Diagnosis Differential diagnosis: Likely deep venous thrombosis of upper extremity, deep vein thrombosis of lower extremity and other (septic bursitis) Medical Records Attestation: I reviewed the patient's medical records. Lab Data Attestation: I reviewed the patient's lab results. Result diagrams: 03/03/20 18:56 03/03/20 18:56 Labs: Lab Results 03/03/20 03/03/20 03/03/20 Range/Units 18:56 18:56 18:56 WBC 7.1 (4.5-11.0) X10^3/uL RBC 4.10 L (4.5-5.9) X10^6/uL Hgb 12.5 L (13.5-17.5) g/dL Hct 37.2 L (41-53) % MCV 90.7 (80-100) fL MCH 30.6 (26-34) PG MCHC 33.7 (30-36) % RDW 15.2 H (11.6-14.8) % Plt Count 157 (150-400) X10^3/uL Neut % (Auto) 56.2 (50-75) % Lymph % (Auto) 32.9 (25-40) % [place] % (Auto) 7.9 (3-14) % Eos % (Auto) 1.6 L (2-4) % Baso % (Auto) 1.4 (0-2) % Neut # (Auto) 4000 (1734-3992) /uL Lymph # (Auto) 2300 (1917-3254) /uL [place] # (Auto) 600 (0-900) /uL Eos # (Auto) 100 (0-450) /uL Baso # (Auto) 100 (0-100) /uL ESR 15 (0-15) MM/HR D-Dimer (<230) ng/mL Sodium 139 (137-145) mmol/L Potassium 4.0 (3.4-5.1) mmol/L Chloride 103 (98-107) mmol/L Carbon Dioxide 29 (22-32) mmol/L BUN 29 H (9-20) mg/dL Creatinine 1.11 (0.66-1.25) mg/dL Estimated GFR > 60.0 (>60) mL/min BUN/Creatinine Ratio 26.1 H (6-22) Glucose 172 H (70-100) mg/dL Lactate (0.7-2.1) mmol/L Calcium 9.1 (8.4-10.2) mg/dL C-Reactive Protein 0.7 (<1.0) mg/dL Procalcitonin < 0.05 (<0.5) ng/mL 03/03/20 03/03/20 Range/Units 18:56 18:56 WBC (4.5-11.0) X10^3/uL RBC (4.5-5.9) X10^6/uL Hgb (13.5-17.5) g/dL Hct (41-53) % MCV (80-100) fL MCH (26-34) PG MCHC (30-36) % RDW (11.6-14.8) % Plt Count (150-400) X10^3/uL Neut % (Auto) (50-75) % Lymph % (Auto) (25-40) % [place] % (Auto) (3-14) % Eos % (Auto) (2-4) % Baso % (Auto) (0-2) % Neut # (Auto) (4638-6517) /uL Lymph # (Auto) (8068-9891) /uL [place] # (Auto) (0-900) /uL Eos # (Auto) (0-450) /uL Baso # (Auto) (0-100) /uL ESR (0-15) MM/HR D-Dimer 263 H (<230) ng/mL Sodium (137-145) mmol/L Potassium (3.4-5.1) mmol/L Chloride (98-107) mmol/L Carbon Dioxide (22-32) mmol/L BUN (9-20) mg/dL Creatinine (0.66-1.25) mg/dL Estimated GFR (>60) mL/min BUN/Creatinine Ratio (6-22) Glucose (70-100) mg/dL Lactate 1.9 (0.7-2.1) mmol/L Calcium (8.4-10.2) mg/dL C-Reactive Protein (<1.0) mg/dL Procalcitonin (<0.5) ng/mL MDM Narrative Medical decision making narrative: This is a 59-year-old male with extensive pa st medical history including pulmonary embolism and currently takes Xarelto presents to ED with chief complain of left knee pain with subjective fever and sweats and slight warmth to left knee. He had an MRI on left knee 3 days ago at [facility] and waiting to follow-up with Dr. Pappas. MRI Findings: 1. Tricompartmental osteoarthritis with associated articular cartilage loss. 2. Medial meniscal tear. 3. Medial collateral ligament bursitis. 4. Knee joint effusion with Gonzalez's cyst. 5. Insertional tendinitis of the semi membranous. Concerned for septic bursitis, obtained labs. No leukocytosis with WBC of 7.1 with normal lactate. Within normal limits of CRP and ESR. Slightly elevated glucose of 172 and patient states has not taken p.m. dose insulin. Appears to be his kidney function has improved from previous visit in October. Normal creatinine today of 1.1 and normal GFR >60. It is unlikely for DVT since the patient currently is taking Xarelto for pulmonary embolism and D-dimer is as suring as 89 for his age. Patient was medicated with 2 doses of IV morphine while in ED with improved pain. Advised patient not to take additional tramadol tonight since he had already received IV morphine for pain. He was discharged to home with prepack Tramadol and advised to follow-up with pain management clinic and to discuss current situation of knee pain whether he increase pain medication Tramadol dose or frequency. Patient also advised to follow-up with Dr. Pappas at [facility] orthopedist. Return precautions were discussed with patient and he verbalized understanding and agreement with the treatment plan. <Tsering Fisher, DO - Last Filed: 03/04/20 05:46> Lab Data Labs: Lab Results 03/03/20 03/03/20 03/03/20 Range/Units 18:56 18:56 18:56 WBC 7.1 (4.5-11.0) X10^3/uL RBC 4.10 L (4.5-5.9) X10^6/uL Hgb 12.5 L (13.5-17.5) g/dL Hct 37.2 L (41-53) % MCV 90.7 (80-100) fL MCH 30.6 (26-34) PG MCHC 33.7 (30-36) % RDW 15.2 H (11.6-14.8) % Plt Count 157 (150-400) X10^3/uL Neut % (Auto) 56.2 (50-75) % Lymph % (Auto) 32.9 (25-40) % [place] % (Auto) 7.9 (3-14) % Eos % (Auto) 1.6 L (2-4) % Baso % (Auto) 1.4 (0-2) % Neut # (Auto) 4000 (0354-7121) /uL Lymph # (Auto) 2300 (0792-6697) /uL [place] # (Auto) 600 (0-900) /uL Eos # (Auto) 100 (0-450) /uL Baso # (Auto) 100 (0-100) /uL ESR 15 (0-15) MM/HR D-Dimer (<230) ng/mL Sodium 139 (137-145) mmol/L Potassium 4.0 (3.4-5.1) mmol/L Chloride 103 (98-107) mmol/L Carbon Dioxide 29 (22-32) mmol/L BUN 29 H (9-20) mg/dL Creatinine 1.11 (0.66-1.25) mg/dL Estimated GFR > 60.0 (>60) mL/min BUN/Creatinine Ratio 26.1 H (6-22) Glucose 172 H (70-100) mg/dL Lactate (0.7-2.1) mmol/L Calcium 9.1 (8.4-10.2) mg/dL C-Reactive Protein 0.7 (<1.0) mg/dL Procalcitonin < 0.05 (<0.5) ng/mL 03/03/20 03/03/20 Range/Units 18:56 18:56 WBC (4.5-11.0) X10^3/uL RBC (4.5-5.9) X10^6/uL Hgb (13.5-17.5) g/dL Hct (41-53) % MCV (80-100) fL MCH (26-34) PG MCHC (30-36) % RDW (11.6-14.8) % Plt Count (150-400) X10^3/uL Neut % (Auto) (50-75) % Lymph % (Auto) (25-40) % [place] % (Auto) (3-14) % Eos % (Auto) (2-4) % Baso % (Auto) (0-2) % Neut # (Auto) (3412-6188) /uL Lymph # (Auto) (5541-6192) /uL [place] # (Auto) (0-900) /uL Eos # (Auto) (0-450) /uL Baso # (Auto) (0-100) /uL ESR (0-15) MM/HR D-Dimer 263 H (<230) ng/mL Sodium (137-145) mmol/L Potassium (3.4-5.1) mmol/L Chloride (98-107) mmol/L Carbon Dioxide (22-32) mmol/L BUN (9-20) mg/dL Creatinine (0.66-1.25) mg/dL Estimated GFR (>60) mL/min BUN/Creatinine Ratio (6-22) Glucose (70-100) mg/dL Lactate 1.9 (0.7-2.1) mmol/L Calcium (8.4-10.2) mg/dL C-Reactive Protein (<1.0) mg/dL Procalcitonin (<0.5) ng/mL Discharge Plan Departure Patient Disposition: Home Clinical Impression: Knee pain Qualifiers: Chronicity: chronic Laterality: left Qualified Code(s): M25.562 - Pain in left knee Instructions: DI for Knee Pain Activity Restrictions/Additional Instructions: You have been diagnosed with [left knee pay likely from osteoarthritis, medial meniscal tear and medial collateral ligament bursitis, small knee effusion with Gonzalez's cyst and tendinitis. Blood test does not indicate infection.]. What to do: *Take your medications as directed. Continue with your pain medication. Your given a few more doses of tramadol prepack. Your medicated with IV morphine while in ED. please contact pain management clinic and orthopedic doctor. *Follow up with your primary care provider in 2-3 days, call for an appointment. Let them know you were seen in the ED and that we asked you to be seen in follow up. *Return to ED if you have any new, worsening, or concerning symptoms, such as [worsening pain, fever, increasing redness, warmth, swelling around the knee, tingling/numbness/weakness to affected knee, chest pain, breathing difficulty, able to tolerate fluids or any acute concerns]. Prescriptions: No Action lisinopril 10 mg tablet 40 mg PO DAILY RF: 0 gabapentin 300 mg capsule 600 mg PO TID RF: 0 insulin glargine 100 unit/mL (3 mL) insulin pen 35 unit Sub-Q BID RF: 0 lorazepam 1 mg tablet 1 mg PO DAILY PRN (Reason: agitation) Qty: 10 RF: 5 divalproex [Depakote ER] 500 mg tablet extended release 24 hr See Rx Instructions PO .COMPLEX Qty: 360 RF: 3 fenofibrate 160 mg tablet 160 mg PO DAILY RF: 0 tramadol 50 mg tablet 50 mg PO BID MDD 2 tabs PRN (Reason: Pain (Scale Score 4-6)) RF: 0 fluoxetine 20 mg capsule 20 mg PO DAILY Qty: 90 RF: 1 Hold Instructions: 02/06/20: trial of stopping lurasidone 40 mg tablet 40 mg PO QPM Qty: 90 RF: 0 metformin [Glucophage XR] 500 MG tablet extended release 24 hr 500 mg PO BIDCC Qty: 60 RF: 0 nitroglycerin [Nitrostat] 0.4 mg Tablet, Sublingual 0.4 mg Sublingual Q5 MIN PRN PRN (Reason: Chest Pain) RF: 0 atorvastatin 40 mg Tablet 40 mg PO BEDTIME RF: 0 levothyroxine [Synthroid] 75 mcg Tablet 75 mcg PO DAILY RF: 0 insulin aspart U-100 100 unit/mL Insulin Pen See Rx Instructions .ROUTE .COMPLEX RF: 0 aspirin 81 mg Tablet,Delayed Release (Dr/Ec) 81 mg PO DAILY RF: 0 Xarelto 20 mg Tablet 20 mg PO QPM RF: 0 hydrochlorothiazide 25 mg Tablet 25 mg PO DAILY RF: 0 metoprolol succinate [Toprol XL] 25 MG tablet extended release 24 hr 25 mg PO DAILY RF: 0 omeprazole 20 mg Capsule,Delayed Release(Dr/Ec) 20 mg PO DAILY RF: 0 ergocalciferol (vitamin D2) 1,250 mcg (50,000 unit) capsule 1,250 mcg PO QWEEK RF: 0 Referrals: Ramon Pappas MD [Physician] - Sandra Garland [Primary Care Provider] - <Tsering Fisher DO - Last Filed: 03/04/20 05:46> Cosign ED Attending Winnie[place] Attestation: I was immediately available in the department for consultation. Documentation has been reviewed. I agree with assessment and plan.
[2020-03-03 20:59] VITALS: BP 118/53; PULSE 65; RESP 20; TEMP 36.7; O2SAT 97
== END 2020-03-03 20:38 | disposition home or self-care (01) ==
PROVIDERS: Emergency Provider Nurse Practitioner Family; PCP Family Medicine
DX: M25.562 Pain in left knee (principal); I26.99 Other pulmonary embolism without acute cor pulmonale; Z79.01 Long term (current) use of anticoagulants; I10 Essential (primary) hypertension; E11.9 Type 2 diabetes mellitus without complications; K21.9 Gastro-esophageal reflux disease without esophagitis; F20.9 Schizophrenia, unspecified
CPT/HCPCS: 80048; 83605; 84145; 85025; 85379; 85651; 86140; 96374; 96376; 99281; 99284; J2270

== ENCOUNTER 2020-03-09 20:43 | Emergency (ER) | payer OTHER, SELFPAY ==
[2019-07-13 01:30] VITALS: BMI 42.5
[2020-03-09 20:45] VITALS: BP 118/60; PULSE 71; RESP 15; TEMP 36.8; O2SAT 98; BMI 44.9
[2020-03-09 20:47] VITALS: PULSE 73; O2SAT 97
[2020-03-09 20:49] VITALS: BP 118/60; PULSE 70; O2SAT 100
--- NOTE | 2020-03-09 20:56 | ED_ITS ---
HPI - Extremity Injury (Lower) General Chief Complaint: Extremity Injury, Lower Stated Complaint: left knee swelling and sore Time Seen by Provider: 03/09/20 20:45 Source: patient Mode of arrival: Wheelchair Limitations: no limitations History of Present Illness HPI Narrative: 59-year-old male former smoker with extensive cardiac history and use of anticoagulants presents with ongoing left knee pain which is now causing him to lose sleep. He recently injured his knee and had an MRI and has established care with Orthopedics. He fell and twisted and there is concern for ligamentous or meniscal injury. He was seen by his orthopedist a few days ago and had an injection which helped with some brief relief and otherwise has been taking Ultram as prescribed by his chronic pain doctor and telling him. He states he ran out of that medication this morning. He has had increasing difficulty with sleep for the past few days because of the pain. He denies any new injury, increased swelling, redness nor any systemic findings such as fever, chills nor nausea or vomiting. He has had no runny nose, sore throat or cough. MD complaint: knee injury Onset (ago): day(s) Injury: Left: knee Type of Injury: other Severity: moderate Relieving factors: immobilization and rest Exacerbating factors: weight bearing and movement Context: fall Associated symptoms: snap/pop sensation Related Data Home Medications Medication Instructions Recorded Confirmed metformin [Glucophage XR] 500 mg PO BIDCC #60 tab 12/25/16 03/05/20 atorvastatin 40 mg PO BEDTIME 10/12/17 03/05/20 insulin aspart U-100 See Rx Instructions .ROUTE .COMPLEX 10/12/17 03/05/20 levothyroxine [Synthroid] 75 mcg PO DAILY 10/12/17 03/05/20 nitroglycerin [Nitrostat] 0.4 mg SUBLINGUAL Q5 MIN PRN PRN 10/12/17 03/05/20 hydrochlorothiazide 25 mg PO DAILY 05/26/18 03/05/20 metoprolol succinate [Toprol XL] 25 mg PO DAILY 05/26/18 03/05/20 fenofibrate 160 mg tablet 160 mg PO DAILY 12/16/18 03/05/20 tramadol 50 mg tablet 50 mg PO BID PRN MDD 2 tabs 12/16/18 03/05/20 omeprazole 20 mg PO DAILY 12/20/18 03/05/20 Xarelto 20 mg PO QPM 02/16/19 03/05/20 aspirin 81 mg PO DAILY 02/16/19 03/05/20 insulin glargine 100 unit/mL (3 35 unit SUB-Q BID ml 08/25/19 03/05/20 mL) subcutaneous pen lisinopril 10 mg tablet 40 mg PO DAILY 08/25/19 03/05/20 gabapentin 300 mg capsule 600 mg PO TID cap 11/29/19 03/05/20 ergocalciferol (vitamin D2) 1,250 1,250 mcg PO QWEEK 11/30/19 03/05/20 mcg (50,000 unit) capsule Previous Rx's Medication Instructions Recorded divalproex 500 mg tablet,extended See Rx Instructions PO .COMPLEX 02/06/20 release 24 hr #360 tab lorazepam 1 mg tablet 1 mg PO DAILY PRN #10 tab 02/06/20 lurasidone 60 mg tablet 60 mg PO QPM #30 tab 03/05/20 Allergies Allergy/AdvReac Type Severity Reaction Status Date / Time Penicillins [PENICILLINS] Allergy Severe Swelling Verified 03/09/20 20:52 of Lip/Tongue/Throat quetiapine AdvReac Intermediate oversedation Verified 03/09/20 20:August Alluna Sleep AdvReac Severe Difficulty Uncoded 03/05/20 09:58 Swallowing Review of Systems Constitutional Constitutional: Denies chills, Denies fatigue, Denies fever(s), Denies frequent falls, Denies lethargy and Denies weakness Eyes Eyes: Denies change in vision, Denies eye discharge, Denies irritation and Denies loss of vision ENT Ears, Nose, Mouth, and Throat: Denies change in voice, Denies dizziness, Denies neck pain, Denies sore throat and Denies throat swelling Cardiovascular Cardiovascular: Denies chest pain, Denies irregular heart rhythm, Denies lightheadedness, Denies palpitations, Denies dyspnea, Denies dyspnea on exertion and Denies orthopnea Respiratory Respiratory: Denies cough, Denies dyspnea, Denies dyspnea on exertion and Denies wheezing Gastrointestinal Gastrointestinal: Denies abdominal pain, Denies change in bowel habits, Denies diarrhea, Denies nausea and Denies vomiting Musculoskeletal Musculoskeletal: Reports arthralgias, Reports joint swelling, Reports limited range of motion, Denies neck pain and Denies numbness Integumentary/Breasts Skin/Breast: Denies pruritus, Denies erythema, Denies rash and Denies wounds Neurologic Neurologic: Denies behavioral changes, Denies confusion, Denies dizziness, Denies frequent falls, Denies loss of vision, Denies numbness and Denies weakness Psychiatric Psychiatric: Denies anxiety, Denies behavioral changes, Denies confusion, Denies depression, Denies homicidal ideation and Denies suicidal ideation Endocrine Endocrine: Denies fatigue, Denies flushing and Denies palpitations Hematologic/Lymphatic Hematologic/Lymphatic: Denies easy bruising Allergic/Immunologic Allergic/Immunologic: Denies urticaria, Denies throat swelling and Denies wheezing Patient History Medical History Acute hyperglycemia Atypical chest pain CAD (coronary artery disease) Chest pain, rule out acute myocardial infarction Chronic left shoulder pain Diabetes type 2, controlled HTN (hypertension) Hyperlipidemia Morbid obesity with body mass index (BMI) of 40.0 to 49.9 Obstructive sleep apnea of adult Pulmonary embolism Schizoaffective disorder Tardive dyskinesia Surgical History Hx of CABG Family History Mother Coronary artery disease Father No problems noted. Social History marital status: unmarried,single details: lives with his parents household members: family lives independently: Yes caregiver/support person: Yes housing: house pets and animals: Yes Smoking Status: Former smoker alcohol intake: never substance use type: does not use Smoking Status: Former smoker alcohol intake frequency: 0-2 drinks per day Substance Use Type: does not use Exam Narrative Exam Narrative: GEN: AOx3 and in mild distress EYES: Pupils are equal, round, and reactive to light and accommodation. E xtraoccular muscles are intact bilaterally. There is no subconjunctival hemorrhage or exudate. CHEST: Lungs are clear to auscultation bilaterally and free of wheezes, rales, or rhonchi. Heart rate is regular rhythm, there are no murmurs, clicks, rubs, or gallops. There is no chest wall tenderness. ABD: Abdomen is soft and nontender. There is no guarding or rebound. Bowel sounds are normal in all 4 quadrants. There is no mass or organomegaly. EXT: Left knee with full but painful range of motion, most tender along medial joint line, no obvious deformity. No large effusion, erythema or warmth. No ligamentous instability SKIN: Warm, pink, and dry. No erythema or rash Initial Vital Signs Initial Vital Signs: Vital Signs Temperature 98.2 F 03/09/20 20:45 Pulse Rate 71 03/09/20 20:45 Respiratory Rate 15 03/09/20 20:45 Blood Pressure 118/60 03/09/20 20:45 Pulse Oximetry 98 03/09/20 20:45 Procedures Joint Aspiration Joint Asp./Inject. 1: Time Out Performed: Yes Side of body: left Joint Aspirated: knee Ultrasound Guidance: No Skin Prep: Chlorhexidine Local Anesthetic: bupivacaine 0.5% Amount of anesthesia used (mL): 3 Needle Size Used: 22G Patient Tolerated Procedure: Well Complications: none Additional Comments: also injected 3 mL in to joint Course Orders Ordered: Discontinued Medications Hydrocodone Bitart/Acetaminophen (Hydrocodone/Acet 5/325 Prepack) 1 bottle MISC SEEINSTR ONE Stop: 03/09/20 22:10 Last Admin: 03/09/20 22:18 Dose: 1 bottle Documented by: VINICIUS Bupivacaine HCl (Bupivacaine 0.5% (Pf) Vial) 5 ml SUBCUT NOW ONE Stop: 03/09/20 22:10 Last Admin: 03/09/20 22:19 Dose: 5 ml Documented by: VINICIUS Vital Signs Vital signs: Vital Signs - 8 hr 03/09/20 20:45 03/09/20 20:47 03/09/20 20:49 Temperature 98.2 F Pulse Rate 71 73 70 Respiratory Rate 15 Blood Pressure 118/60 118/60 Pulse Oximetry 98 97 100 03/09/20 22:25 Temperature Pulse Rate 64 Respiratory Rate 20 Blood Pressure 138/69 Pulse Oximetry 98 Discharge Plan Departure Patient Disposition: Home Clinical Impression: Knee pain, Acute meniscal tear of knee Instructions: DI for Knee Pain Activity Restrictions/Additional Instructions: *You have been diagnosed with [knee pain, clinical concern for meniscal tear] *What to do: *Take medications as directed *Follow up with your primary care provider in 2-3 days, call for an appointment. Let them know you were seen in the Emergency Department and that we ask that you be seen in follow up *Return to ER if you should have any new, worsening or concerning symptoms Prescriptions: No Action lisinopril 10 mg tablet 40 mg PO DAILY RF: 0 gabapentin 300 mg capsule 600 mg PO TID RF: 0 insulin glargine 100 unit/mL (3 mL) insulin pen 35 unit Sub-Q BID RF: 0 lorazepam 1 mg tablet 1 mg PO DAILY PRN (Reason: agitation) Qty: 10 RF: 5 divalproex [Depakote ER] 500 mg tablet extended release 24 hr See Rx Instructions PO .COMPLEX Qty: 360 RF: 3 fenofibrate 160 mg tablet 160 mg PO DAILY RF: 0 tramadol 50 mg tablet 50 mg PO BID MDD 2 tabs PRN (Reason: Pain (Scale Score 4-6)) RF: 0 lurasidone 60 mg tablet 60 mg PO QPM Qty: 30 RF: 1 metformin [Glucophage XR] 500 MG tablet extended release 24 hr 500 mg PO BIDCC Qty: 60 RF: 0 nitroglycerin [Nitrostat] 0.4 mg Tablet, Sublingual 0.4 mg Sublingual Q5 MIN PRN PRN (Reason: Chest Pain) RF: 0 atorvastatin 40 mg Tablet 40 mg PO BEDTIME RF: 0 levothyroxine [Synthroid] 75 mcg Tablet 75 mcg PO DAILY RF: 0 insulin aspart U-100 100 unit/mL Insulin Pen See Rx Instructions .ROUTE .COMPLEX RF: 0 aspirin 81 mg Tablet,Delayed Release (Dr/Ec) 81 mg PO DAILY RF: 0 Xarelto 20 mg Tablet 20 mg PO QPM RF: 0 hydrochlorothiazide 25 mg Tablet 25 mg PO DAILY RF: 0 metoprolol succinate [Toprol XL] 25 MG tablet extended release 24 hr 25 mg PO DAILY RF: 0 omeprazole 20 mg Capsule,Delayed Release(Dr/Ec) 20 mg PO DAILY RF: 0 ergocalciferol (vitamin D2) 1,250 mcg (50,000 unit) capsule 1,250 mcg PO QWEEK RF: 0 Referrals: Sandra Garland [Primary Care Provider] - Jesse Hurd MD [Physician] -
[2020-03-09] MEDS: HYDROCODONE/ACET 5/325 PREPACK 1 BOTTLE MISC (22:18)
[2020-03-09] MEDS: BUPIVACAINE 0.5% (PF) VIAL 5 ML SUBCUT (22:19)
[2020-03-09 22:25] VITALS: BP 138/69; PULSE 64; RESP 20; O2SAT 98
== END 2020-03-09 22:36 | disposition home or self-care (01) ==
PROVIDERS: Emergency Provider Emergency Medicine; PCP Family Medicine
DX: S83.209A Unspecified tear of unspecified meniscus, current injury, unspecified knee, initial encounter (principal); M25.562 Pain in left knee
CPT/HCPCS: 20610; 99281; 99283

== ENCOUNTER 2020-03-11 16:42 | Emergency (ER) | payer OTHER, SELFPAY ==
[2019-07-13 01:30] VITALS: BMI 42.5
[2020-03-11] VITALS (10 sets, daily range): BP systolic 120–135; BP diastolic 58–79; PULSE 57–64; RESP 15–24; TEMP 36.3; O2SAT 92–99
--- NOTE | 2020-03-11 16:51 | DI.RAD.S_ITS ---
PROCEDURE: XR CHEST 1V INDICATIONS: chest pain TECHNIQUE: One view of the chest was acquired. COMPARISON: [facility], , XR CHEST 1V, 09/19/2019, 9:11. FINDINGS: Surgical changes and devices: Sternotomy wires are seen related to prior CABG. There is postsurgical widening of the left acromioclavicular joint. Lungs and pleura: Mild interstitial prominence is seen that is less severe when compared to the prior radiographs from 09/19/2019. No pleural effusions or pneumothorax. Mediastinum: Mediastinal contours appear normal. Heart size is mildly enlarged and stable. Bones and chest wall: No suspicious bony lesions. Overlying soft tissues appear unremarkable. IMPRESSION: Mild cardiomegaly with slight prominence of the central pulmonary vasculature. No acute airspace consolidation or pleural effusion. Findings may represent mild congestive heart failure. Dictated by: Enrico Rizvi M.D. on 03/11/2020 at 16:31 Approved by: Enrico Rizvi M.D. on 03/11/2020 at 16:33
[2020-03-11 17:36] LABS: Prothrombin Time 11.5 SECONDS (10.1-12.7)
[2020-03-11 17:37] LABS: Add Manual Diff / Slide Review NO; Basophils Absolute Auto 0 /uL (0-100); Basophils Percent Auto 0.5 % (0-2); Eosinophils Absolute Auto 100 /uL (0-450); Eosinophils Percent Auto 1.7 % (2-4); Hemoglobin 13.3 g/dL (13.5-17.5); Lymphocytes Absolute Auto 2800 /uL (1100-4500); Lymphocytes Percent Auto 35.1 % (25-40); Mean Corpuscular HGB Conc 33.3 % (30-36); Mean Corpuscular Hemoglobin 30.4 PG (26-34); Mean Corpuscular Volume 91.4 fL (80-100); Monocytes Absolute Auto 600 /uL (0-900); Monocytes Percent Auto 7.5 % (3-14); Neutrophils Absolute Auto 4400 /uL (1500-7000); Neutrophils Percent Auto 55.2 % (50-75); Platelet Count 188 X10^3/uL (150-400); Red Blood Cell Count 4.37 X10^6/uL (4.5-5.9); Red Cell Distribution Width 15.2 % (11.6-14.8)
[2020-03-11 17:38] LABS: PTT Partial Thromboplastin Tim 36 SECONDS (26.4-36.2)
[2020-03-11 17:41] LABS: Alanine Aminotransferase 20 IU/L (<50); Albumin 4.3 g/dL (3.5-5.0); Albumin Globulin Ratio 1.2 (1.0-2.8); Alkaline Phosphatase 78 U/L (38-126); Aspartate Aminotransferase 21 IU/L (17-59); BUN Creatinine Ratio 20.3 (6-22); Bilirubin Total 0.4 mg/dL (0.2-1.3); Blood Urea Nitrogen 24 mg/dL (9-20); Calcium 9.1 mg/dL (8.4-10.2); Carbon Dioxide 30 mmol/L (22-32); Chloride 103 mmol/L (98-107); Creatine Kinase 188 U/L (55-170); Estimated Glomerular Filt Rate > 60.0 mL/min (>60); Globulin 3.6 g/dL (1.7-4.1); Glucose 174 mg/dL (70-100); HEMOLYSIS < 15 (0-50); Lipase 98 U/L (23-300); Potassium 4.1 mmol/L (3.4-5.1); Sodium 138 mmol/L (137-145); Total Protein 7.9 g/dL (6.3-8.2)
[2020-03-11 17:52] LABS: Troponin I < 0.012 ng/mL (0.01-0.034)
[2020-03-11 17:56] LABS: CKMB % Relative Index 0.8 % (1.5-5.0); Creatine Kinase MB 1.57 ng/mL (<2.37)
[2020-03-11] MEDS: ONDANSETRON 4 MG/2 ML INJ IV (20:00)
[2020-03-11] MEDS: NITROGLYCERIN 0.4 MG SL TAB SL ×3 (20:08→20:43)
[2020-03-11] MEDS: MORPHINE 4 MG/ML INJ IV (20:32)
--- NOTE | 2020-03-11 20:41 | ED.CHESTPAIN ---
HPI - Chest Pain <Kamilah MccormickHIGINIOP-BC - Last Filed: 03/11/20 20:54> General Chief Complaint: Chest Pain Stated Complaint: Chest Pain Time Seen by Provider: 03/11/20 19:11 Source: patient and family Mode of arrival: Ambulatory Limitations: no limitations History of Present Illness HPI narrative: The patient is a 59-year-old male former smoker with history of known coronary artery disease, CABG x5 hypertension, type 2 diabetes who presents with a chief complaint of substernal chest pain. The patient was here with his mother was also in the emergency department when he had sudden onset of chest pain radiating to his back with associated lightheadedness, dizziness and nausea with no vomiting. He states that he forgot his nitroglycerin at home. Thus he checked into the emergency department to be evaluated. He complains of persistent dizziness, lightheadedness and overall weakness. He states he feels ?like shit.Complains of nausea, no vomiting. He states he is on a blood thinner, he is not sure exactly which one it is. The chart review illustrate that the patient is on Xarelto. He does have a systems planner who he saw last year. Related Data Home Medications Medication Instructions Recorded Confirmed metformin [Glucophage XR] 500 mg PO BIDCC #60 tab 12/25/16 03/05/20 atorvastatin 40 mg PO BEDTIME 10/12/17 03/05/20 insulin aspart U-100 See Rx Instructions .ROUTE .COMPLEX 10/12/17 03/05/20 levothyroxine [Synthroid] 75 mcg PO DAILY 10/12/17 03/05/20 nitroglycerin [Nitrostat] 0.4 mg SUBLINGUAL Q5 MIN PRN PRN 10/12/17 03/05/20 hydrochlorothiazide 25 mg PO DAILY 05/26/18 03/05/20 metoprolol succinate [Toprol XL] 25 mg PO DAILY 05/26/18 03/05/20 fenofibrate 160 mg tablet 160 mg PO DAILY 12/16/18 03/05/20 tramadol 50 mg tablet 50 mg PO BID PRN MDD 2 tabs 12/16/18 03/05/20 omeprazole 20 mg PO DAILY 12/20/18 03/05/20 Xarelto 20 mg PO QPM 02/16/19 03/05/20 aspirin 81 mg PO DAILY 02/16/19 03/05/20 insulin glargine 100 unit/mL (3 35 unit SUB-Q BID ml 08/25/19 03/05/20 mL) subcutaneous pen lisinopril 10 mg tablet 40 mg PO DAILY 08/25/19 03/05/20 gabapentin 300 mg capsule 600 mg PO TID cap 11/29/19 03/05/20 ergocalciferol (vitamin D2) 1,250 1,250 mcg PO QWEEK 11/30/19 03/05/20 mcg (50,000 unit) capsule Previous Rx's Medication Instructions Recorded divalproex 500 mg tablet,extended See Rx Instructions PO .COMPLEX 02/06/20 release 24 hr #360 tab lorazepam 1 mg tablet 1 mg PO DAILY PRN #10 tab 02/06/20 lurasidone 60 mg tablet 60 mg PO QPM #30 tab 03/05/20 Allergies Allergy/AdvReac Type Severity Reaction Status Date / Time Penicillins [PENICILLINS] Allergy Severe Swelling Verified 03/09/20 20:52 of Lip/Tongue/Throat quetiapine AdvReac Intermediate oversedation Verified 03/09/20 20:August Alluna Sleep AdvReac Severe Difficulty Uncoded 03/05/20 09:58 Swallowing Review of Systems <JACOB Vargas - Last Filed: 03/11/20 20:54> Review of Systems Narrative: GENERAL: Denies chills, fatigue, malaise, fever, sweats. HEENT: Denies sinus pain, ear pain, sore throat, difficulty swallowing, dizziness. RESPIRATORY: Denies dyspnea, cough, wheezing, hemoptysis, sputum. CARDIOVASCULAR: See HPI GASTROINTESTINAL: See HPI : Denies dysuria, frequency, incontinence, hematuria, urinary retention. MUSCULOSKELETAL: denies weakness, joint pain, or bony pain SKIN: Denies rash, skin lesions, or other NEUROLOGIC: Denies weakness, headache, numbness, change in speech, confusion, seizures, incoordination. PSYCHIATRIC: No concerning psychosocial issues. 12 point review of systems is negative except for those stated above Patient History <JACOB Vargas - Last Filed: 03/11/20 20:54> Medical History (Updated 03/11/20 @ 21:35 by Gera Colindres DO) Acute hyperglycemia Atypical chest pain CAD (coronary artery disease) Chest pain, rule out acute myocardial infarction Chronic left shoulder pain Diabetes type 2, controlled HTN (hypertension) Hyperlipidemia Morbid obesity with body mass index (BMI) of 40.0 to 49.9 Obstructive sleep apnea of adult Pulmonary embolism Schizoaffective disorder Tardive dyskinesia Surgical History Hx of CABG Family History Mother Coronary artery disease Father No problems noted. Social History marital status: unmarried,single details: lives with his parents household members: family lives independently: Yes caregiver/support person: Yes housing: house pets and animals: Yes Smoking Status: Former smoker alcohol intake: never substance use type: does not use Smoking Status: Former smoker alcohol intake frequency: 0-2 drinks per day Substance Use Type: does not use Exam <JACOB Vargas - Last Filed: 03/11/20 20:54> Narrative Exam Narrative: GENERAL: This is a an overweight male sitting in a chair, in no acute distress HEAD: Atraumatic. Normocephalic. No temporal or scalp tenderness. EYES: Pupils equal round and reactive. Extraocular motions intact. No scleral icterus. No injection or drainage. ENT: Nose without bleeding, purulent drainage or septal hematoma. Throat without erythema, tonsillar hypertrophy or exudate. Uvula midline. Airway patent. NECK: Trachea midline. No JVD or lymphadenopathy. Supple, nontender, no meningeal signs. CARDIOVASCULAR: Regular rate and rhythm RESPIRATORY: Clear to auscultation. Breath sounds equal bilaterally. No wheezes, rales, or rhonchi. No cough. No increased respiratory effort. No accessory muscle use GASTROINTESTINAL: Abdomen protuberant, non-tender, nondistended. No hepato-splenomegaly, or palpable masses. No guarding. EXTREMITIES: No clubbing, cyanosis, or edema. No joint tenderness, effusion, or edema noted. BACK: Nontender without deformity or crepitance. No flank tenderness. NEURO: AOx3. Stable gait. Symmetric face, no gross cranial nerve deficit. SKIN: No rash or erythema on visible skin. Initial Vital Signs Initial Vital Signs: Vital Signs Temperature 97.3 F L 03/11/20 16:49 Pulse Rate 59 L 03/11/20 16:49 Respiratory Rate 24 03/11/20 16:49 Blood Pressure 133/79 03/11/20 16:49 Pulse Oximetry 99 03/11/20 16:49 <Gera Colindres DO - Last Filed: 03/12/20 00:29> Initial Vital Signs Initial Vital Signs: Vital Signs Temperature 97.3 F L 03/11/20 16:49 Pulse Rate 59 L 03/11/20 16:49 Respiratory Rate 24 03/11/20 16:49 Blood Pressure 133/79 03/11/20 16:49 Pulse Oximetry 99 03/11/20 16:49 Scores <JACOB Vargas - Last Filed: 03/11/20 20:54> GCS Curtis coma scale eye opening: Spontaneous Curtis coma scale verbal response: Orientated [place] coma scale motor response: Obey commands [place] coma scale total score: 15 Course <JACOB Vargas - Last Filed: 03/11/20 20:54> Orders Ordered: ED Orders 03/11/20 16:51 XR chest 1V Stat 03/11/20 16:54 EKG-12 Lead Stat 03/11/20 17:25 Complete Blood Count AUTO DIFF Stat Comprehensive Metabolic Panel Stat Lipase Stat Partial Thromboplastin Time Stat Prothrombin Time INR Stat Troponin & CK Cardiac Panel Stat 03/11/20 20:10 NT-proBNP (BNP-Adult 18+) Stat Troponin & CK Cardiac Panel Stat 03/11/20 21:08 D Dimer Stat Discontinued Medications Morphine Sulfate (Morphine 4 Mg/Ml Inj) 4 mg IV NOW ONE Stop: 03/11/20 20:30 Last Admin: 03/11/20 20:32 Dose: 4 mg Documented by: SUNIL Nitroglycerin (Nitroglycerin 0.4 Mg Sl Tab) 0.4 mg SL [id number] PRN PRN Reason: Chest Pain Last Admin: 03/11/20 20:43 Dose: 0.4 mg Documented by: Admin: 03/11/20 20:22 Dose: 0.4 mg Documented by: Admin: 03/11/20 20:08 Dose: 0.4 mg Documented by: AIMEE Ondansetron HCl (Ondansetron 4 Mg/2 Ml Inj) 4 mg IV NOW ONE Stop: 03/11/20 19:49 Last Admin: 03/11/20 20:00 Dose: 4 mg Documented by: SUNIL Vital Signs Vital signs: Vital Signs - 8 hr 03/11/20 16:49 03/11/20 20:17 03/11/20 20:19 Temperature 97.3 F L Pulse Rate 59 L 63 60 Respiratory Rate 24 24 Blood Pressure 133/79 124/65 Pulse Oximetry 99 96 97 03/11/20 20:30 03/11/20 20:40 03/11/20 20:50 Temperature Pulse Rate 64 61 63 Respiratory Rate 22 15 20 Blood Pressure 120/59 L 122/58 L 127/63 Pulse Oximetry 92 93 93 03/11/20 21:00 03/11/20 21:10 03/11/20 21:20 Temperature Pulse Rate 57 L 59 L 61 Respiratory Rate 18 20 22 Blood Pressure 135/70 133/71 133/72 Pulse Oximetry 97 97 96 03/11/20 21:30 Temperature Pulse Rate 64 Respiratory Rate Blood Pressure 125/66 Pulse Oximetry 98 <Gera Colindres, - Last Filed: 03/12/20 00:29> Orders Ordered: ED Orders 03/11/20 16:51 XR chest 1V Stat 03/11/20 16:54 EKG-12 Lead Stat 03/11/20 17:25 Complete Blood Count AUTO DIFF Stat Comprehensive Metabolic Panel Stat Lipase Stat Partial Thromboplastin Time Stat Prothrombin Time INR Stat Troponin & CK Cardiac Panel Stat 03/11/20 20:10 NT-proBNP (BNP-Adult 18+) Stat Troponin & CK Cardiac Panel Stat 03/11/20 21:08 D Dimer Stat Discontinued Medications Morphine Sulfate (Morphine 4 Mg/Ml Inj) 4 mg IV NOW ONE Stop: 03/11/20 20:30 Last Admin: 03/11/20 20:32 Dose: 4 mg Documented by: SUNIL Nitroglycerin (Nitroglycerin 0.4 Mg Sl Tab) 0.4 mg SL [id number] PRN PRN Reason: Chest Pain Last Admin: 03/11/20 20:43 Dose: 0.4 mg Documented by: Admin: 03/11/20 20:22 Dose: 0.4 mg Documented by: Admin: 03/11/20 20:08 Dose: 0.4 mg Documented by: AIMEE Ondansetron HCl (Ondansetron 4 Mg/2 Ml Inj) 4 mg IV NOW ONE Stop: 03/11/20 19:49 Last Admin: 03/11/20 20:00 Dose: 4 mg Documented by: SUNIL Vital Signs Vital signs: Vital Signs - 8 hr 03/11/20 16:49 03/11/20 20:17 03/11/20 20:19 Temperature 97.3 F L Pulse Rate 59 L 63 60 Respiratory Rate 24 24 Blood Pressure 133/79 124/65 Pulse Oximetry 99 96 97 03/11/20 20:30 03/11/20 20:40 03/11/20 20:50 Temperature Pulse Rate 64 61 63 Respiratory Rate 22 15 20 Blood Pressure 120/59 L 122/58 L 127/63 Pulse Oximetry 92 93 93 03/11/20 21:00 03/11/20 21:10 03/11/20 21:20 Temperature Pulse Rate 57 L 59 L 61 Respiratory Rate 18 20 22 Blood Pressure 135/70 133/71 133/72 Pulse Oximetry 97 97 96 03/11/20 21:30 Temperature Pulse Rate 64 Respiratory Rate Blood Pressure 125/66 Pulse Oximetry 98 MDM - Chest Pain <HIGINIO VargasP- - Last Filed: 03/11/20 20:54> Lab Data Attestation: I reviewed the patient's lab results. Result diagrams: 03/11/20 17:25 03/11/20 17:25 Labs: Lab Results 03/11/20 03/11/20 03/11/20 Range/Units 17:25 17:25 17:25 WBC 8.0 (4.5-11.0) X10^3/uL RBC 4.37 L (4.5-5.9) X10^6/uL Hgb 13.3 L (13.5-17.5) g/dL Hct 40.0 L (41-53) % MCV 91.4 (80-100) fL MCH 30.4 (26-34) PG MCHC 33.3 (30-36) % RDW 15.2 H (11.6-14.8) % Plt Count 188 (150-400) X10^3/uL Neut % (Auto) 55.2 (50-75) % Lymph % (Auto) 35.1 (25-40) % [place] % (Auto) 7.5 (3-14) % Eos % (Auto) 1.7 L (2-4) % Baso % (Auto) 0.5 (0-2) % Neut # (Auto) 4400 (9339-6062) /uL Lymph # (Auto) 2800 (7362-9251) /uL [place] # (Auto) 600 (0-900) /uL Eos # (Auto) 100 (0-450) /uL Baso # (Auto) 0 (0-100) /uL PT 11.5 (10.1-12.7) SECONDS INR 1.0 (0.9-1.3) APTT 36 D (26.4-36.2) SECONDS D-Dimer (<230) ng/mL Sodium 138 (137-145) mmol/L Potassium 4.1 (3.4-5.1) mmol/L Chloride 103 (98-107) mmol/L Carbon Dioxide 30 (22-32) mmol/L BUN 24 H (9-20) mg/dL Creatinine 1.18 (0.66-1.25) mg/dL Estimated GFR > 60.0 (>60) mL/min BUN/Creatinine Ratio 20.3 (6-22) Glucose 174 H (70-100) mg/dL Calcium 9.1 (8.4-10.2) mg/dL Total Bilirubin 0.4 (0.2-1.3) mg/dL AST 21 (17-59) IU/L ALT 20 (<50) IU/L Alkaline Phosphatase 78 (38-126) U/L Total Creatine Kinase 188 H (55-170) U/L CK-MB (CK-2) 1.57 (<2.37) ng/mL CK-MB (CK-2) Rel Index 0.8 L (1.5-5.0) % Troponin I < 0.012 (0.01-0.034) ng/mL NT-Pro-B Natriuret Pep (<125) pg/mL Total Protein 7.9 (6.3-8.2) g/dL Albumin 4.3 (3.5-5.0) g/dL Globulin 3.6 (1.7-4.1) g/dL Albumin/Globulin Ratio 1.2 (1.0-2.8) Lipase 98 (23-300) U/L 03/11/20 03/11/20 03/11/20 Range/Units 20:10 20:10 21:08 WBC (4.5-11.0) X10^3/uL RBC (4.5-5.9) X10^6/uL Hgb (13.5-17.5) g/dL Hct (41-53) % MCV (80-100) fL MCH (26-34) PG MCHC (30-36) % RDW (11.6-14.8) % Plt Count (150-400) X10^3/uL Neut % (Auto) (50-75) % Lymph % (Auto) (25-40) % [place] % (Auto) (3-14) % Eos % (Auto) (2-4) % Baso % (Auto) (0-2) % Neut # (Auto) (6533-1942) /uL Lymph # (Auto) (6841-8960) /uL [place] # (Auto) (0-900) /uL Eos # (Auto) (0-450) /uL Baso # (Auto) (0-100) /uL PT (10.1-12.7) SECONDS INR (0.9-1.3) APTT (26.4-36.2) SECONDS D-Dimer 213 (<230) ng/mL Sodium (137-145) mmol/L Potassium (3.4-5.1) mmol/L Chloride (98-107) mmol/L Carbon Dioxide (22-32) mmol/L BUN (9-20) mg/dL Creatinine (0.66-1.25) mg/dL Estimated GFR (>60) mL/min BUN/Creatinine Ratio (6-22) Glucose (70-100) mg/dL Calcium (8.4-10.2) mg/dL Total Bilirubin (0.2-1.3) mg/dL AST (17-59) IU/L ALT (<50) IU/L Alkaline Phosphatase (38-126) U/L Total Creatine Kinase 194 H (55-170) U/L CK-MB (CK-2) 1.58 (<2.37) ng/mL CK-MB (CK-2) Rel Index 0.8 L (1.5-5.0) % Troponin I < 0.012 (0.01-0.034) ng/mL NT-Pro-B Natriuret Pep 109 (<125) pg/mL Total Protein (6.3-8.2) g/dL Albumin (3.5-5.0) g/dL Globulin (1.7-4.1) g/dL Albumin/Globulin Ratio (1.0-2.8) Lipase (23-300) U/L Imaging Data Chest x-ray: Radiologist's Impression: [address] [place] [id number] ReportSigned Patient: Luis E Pierre RMR#: [id number]: 1960cct:[id number]/Sex: 59 / MDate of Service: 03/11/20Loc: EDAccession Number: [id number] Procedure: XR chest 1V Ordering Provider: Tsering Fisher D.O. PROCEDURE: XR CHEST 1V INDICATIONS: chest pain TECHNIQUE: One view of the chest was acquired. COMPARISON: [facility], , XR CHEST 1V, 09/19/2019, 9:11. FINDINGS: Surgical changes and devices: Sternotomy wires are seen related to prior CABG. There is postsurgical widening of the left acromioclavicular joint. Lungs and pleura: Mild interstitial prominence is seen that is less severe when compared to the prior radiographs from 09/19/2019. No pleural effusions or pneumothorax. Mediastinum: Mediastinal contours appear normal. Heart size is mildly enlarged and stable. Bones and chest wall: No suspicious bony lesions. Overlying soft tissues appear unremarkable. IMPRESSION: Mild cardiomegaly with slight prominence of the central pulmonary vasculature. No acute airspace consolidation or pleural effusion. Findings may represent mild congestive heart failure. Dictated by: Enrico Rizvi M.D. on 03/11/2020 at 16:31 Approved by: Enrico Rizvi M.D. on 03/11/2020 at 16:33 ECG Data Attestation: I personally reviewed and interpreted this ECG as follows: Interpretation: Sinus bradycardia. Ventricular rate 56. P.r. interval 121. QRS 99. Viewed by Dr Fisher. MDM Narrative Medical decision making narrative: Patient with a significant cardiac history presents with a chief complaint of substernal chest pain. Initial troponin is negative, EKG within normal limits. Given his history, repeat troponin ordered. Patient given 3 nitroglycerin as well as 4 mg IV morphine. Signed out to Dr Colindres with repeat troponin, BNP and D-dimer pending at 20:55 <Gera Colindres, DO - Last Filed: 03/12/20 00:29> Lab Data Labs: Lab Results 03/11/20 03/11/20 03/11/20 Range/Units 17:25 17:25 17:25 WBC 8.0 (4.5-11.0) X10^3/uL RBC 4.37 L (4.5-5.9) X10^6/uL Hgb 13.3 L (13.5-17.5) g/dL Hct 40.0 L (41-53) % MCV 91.4 (80-100) fL MCH 30.4 (26-34) PG MCHC 33.3 (30-36) % RDW 15.2 H (11.6-14.8) % Plt Count 188 (150-400) X10^3/uL Neut % (Auto) 55.2 (50-75) % Lymph % (Auto) 35.1 (25-40) % [place] % (Auto) 7.5 (3-14) % Eos % (Auto) 1.7 L (2-4) % Baso % (Auto) 0.5 (0-2) % Neut # (Auto) 4400 (5272-2284) /uL Lymph # (Auto) 2800 (2351-0088) /uL [place] # (Auto) 600 (0-900) /uL Eos # (Auto) 100 (0-450) /uL Baso # (Auto) 0 (0-100) /uL PT 11.5 (10.1-12.7) SECONDS INR 1.0 (0.9-1.3) APTT 36 D (26.4-36.2) SECONDS D-Dimer (<230) ng/mL Sodium 138 (137-145) mmol/L Potassium 4.1 (3.4-5.1) mmol/L Chloride 103 (98-107) mmol/L Carbon Dioxide 30 (22-32) mmol/L BUN 24 H (9-20) mg/dL Creatinine 1.18 (0.66-1.25) mg/dL Estimated GFR > 60.0 (>60) mL/min BUN/Creatinine Ratio 20.3 (6-22) Glucose 174 H (70-100) mg/dL Calcium 9.1 (8.4-10.2) mg/dL Total Bilirubin 0.4 (0.2-1.3) mg/dL AST 21 (17-59) IU/L ALT 20 (<50) IU/L Alkaline Phosphatase 78 (38-126) U/L Total Creatine Kinase 188 H (55-170) U/L CK-MB (CK-2) 1.57 (<2.37) ng/mL CK-MB (CK-2) Rel Index 0.8 L (1.5-5.0) % Troponin I < 0.012 (0.01-0.034) ng/mL NT-Pro-B Natriuret Pep (<125) pg/mL Total Protein 7.9 (6.3-8.2) g/dL Albumin 4.3 (3.5-5.0) g/dL Globulin 3.6 (1.7-4.1) g/dL Albumin/Globulin Ratio 1.2 (1.0-2.8) Lipase 98 (23-300) U/L 03/11/20 03/11/20 03/11/20 Range/Units 20:10 20:10 21:08 WBC (4.5-11.0) X10^3/uL RBC (4.5-5.9) X10^6/uL Hgb (13.5-17.5) g/dL Hct (41-53) % MCV (80-100) fL MCH (26-34) PG MCHC (30-36) % RDW (11.6-14.8) % Plt Count (150-400) X10^3/uL Neut % (Auto) (50-75) % Lymph % (Auto) (25-40) % [place] % (Auto) (3-14) % Eos % (Auto) (2-4) % Baso % (Auto) (0-2) % Neut # (Auto) (8618-7333) /uL Lymph # (Auto) (3240-8901) /uL [place] # (Auto) (0-900) /uL Eos # (Auto) (0-450) /uL Baso # (Auto) (0-100) /uL PT (10.1-12.7) SECONDS INR (0.9-1.3) APTT (26.4-36.2) SECONDS D-Dimer 213 (<230) ng/mL Sodium (137-145) mmol/L Potassium (3.4-5.1) mmol/L Chloride (98-107) mmol/L Carbon Dioxide (22-32) mmol/L BUN (9-20) mg/dL Creatinine (0.66-1.25) mg/dL Estimated GFR (>60) mL/min BUN/Creatinine Ratio (6-22) Glucose (70-100) mg/dL Calcium (8.4-10.2) mg/dL Total Bilirubin (0.2-1.3) mg/dL AST (17-59) IU/L ALT (<50) IU/L Alkaline Phosphatase (38-126) U/L Total Creatine Kinase 194 H (55-170) U/L CK-MB (CK-2) 1.58 (<2.37) ng/mL CK-MB (CK-2) Rel Index 0.8 L (1.5-5.0) % Troponin I < 0.012 (0.01-0.034) ng/mL NT-Pro-B Natriuret Pep 109 (<125) pg/mL Total Protein (6.3-8.2) g/dL Albumin (3.5-5.0) g/dL Globulin (1.7-4.1) g/dL Albumin/Globulin Ratio (1.0-2.8) Lipase (23-300) U/L MDM Narrative Medical decision making narrative: Patient with no ongoing pain. No radiation, diaphoresis, SOB, or exertional component. Sharp and stabbing and anterior in nature. Worse with deep breath and palpation. Non ischemic EKG. Troponin x2 negative. Negative DDimer. Return precautions given. Questions answered to his apparent satisfaction Discharge Plan Departure Patient Disposition: Home Clinical Impression: Atypical chest pain Instructions: DI for Atypical Chest Pain Activity Restrictions/Additional Instructions: *You have been diagnosed with [atypical chest pain. EKG is reassuring. We have done 2 troponins which are negative and D-dimer which is helpful for evaluating blood clot which was also normal.] *What to do: *Take medications as directed *Follow up with your primary care provider in 2-3 days, call for an appointment. Let them know you were seen in the Emergency Department and that we ask that you be seen in follow up *Return to ER if you should have any new, worsening or concerning symptoms Prescriptions: No Action lisinopril 10 mg tablet 40 mg PO DAILY RF: 0 gabapentin 300 mg capsule 600 mg PO TID RF: 0 insulin glargine 100 unit/mL (3 mL) insulin pen 35 unit Sub-Q BID RF: 0 lorazepam 1 mg tablet 1 mg PO DAILY PRN (Reason: agitation) Qty: 10 RF: 5 divalproex [Depakote ER] 500 mg tablet extended release 24 hr See Rx Instructions PO .COMPLEX Qty: 360 RF: 3 fenofibrate 160 mg tablet 160 mg PO DAILY RF: 0 tramadol 50 mg tablet 50 mg PO BID MDD 2 tabs PRN (Reason: Pain (Scale Score 4-6)) RF: 0 lurasidone 60 mg tablet 60 mg PO QPM Qty: 30 RF: 1 metformin [Glucophage XR] 500 MG tablet extended release 24 hr 500 mg PO BIDCC Qty: 60 RF: 0 nitroglycerin [Nitrostat] 0.4 mg Tablet, Sublingual 0.4 mg Sublingual Q5 MIN PRN PRN (Reason: Chest Pain) RF: 0 atorvastatin 40 mg Tablet 40 mg PO BEDTIME RF: 0 levothyroxine [Synthroid] 75 mcg Tablet 75 mcg PO DAILY RF: 0 insulin aspart U-100 100 unit/mL Insulin Pen See Rx Instructions .ROUTE .COMPLEX RF: 0 aspirin 81 mg Tablet,Delayed Release (Dr/Ec) 81 mg PO DAILY RF: 0 Xarelto 20 mg Tablet 20 mg PO QPM RF: 0 hydrochlorothiazide 25 mg Tablet 25 mg PO DAILY RF: 0 metoprolol succinate [Toprol XL] 25 MG tablet extended release 24 hr 25 mg PO DAILY RF: 0 omeprazole 20 mg Capsule,Delayed Release(Dr/Ec) 20 mg PO DAILY RF: 0 ergocalciferol (vitamin D2) 1,250 mcg (50,000 unit) capsule 1,250 mcg PO QWEEK RF: 0 Referrals: Sandra Garland [Primary Care Provider] -
[2020-03-11 20:43] LABS: Creatine Kinase 194 U/L (55-170)
[2020-03-11 20:53] LABS: NT-proBNP (BNP-Adult 18+) 109 pg/mL (<125)
[2020-03-11 20:56] LABS: Troponin I < 0.012 ng/mL (0.01-0.034)
[2020-03-11 20:58] LABS: CKMB % Relative Index 0.8 % (1.5-5.0); Creatine Kinase MB 1.58 ng/mL (<2.37)
[2020-03-11 21:29] LABS: D Dimer 213 ng/mL (<230)
== END 2020-03-11 21:40 | disposition home or self-care (01) ==
PROVIDERS: Emergency Medicine; Emergency Provider Nurse Practitioner Family; PCP Family Medicine
DX: R07.89 Other chest pain (principal); I25.10 Atherosclerotic heart disease of native coronary artery without angina pectoris; I10 Essential (primary) hypertension; E11.9 Type 2 diabetes mellitus without complications; R11.0 Nausea; Z79.01 Long term (current) use of anticoagulants; E66.3 Overweight
CPT/HCPCS: 36415; 71045; 80053; 82550; 82553; 83690; 83880; 84484; 85025; 85379; 85610; 85730; 93005; 93010; 96374; 96375; 99284; J2270; J2405

== ENCOUNTER 2020-03-18 19:05 | Emergency (ER) | payer OTHER, SELFPAY ==
[2019-07-13 01:30] VITALS: BMI 42.5
[2020-03-18 19:39] VITALS: BP 157/87; PULSE 73; RESP 16; TEMP 37.2; O2SAT 98; BMI 44.9
--- NOTE | 2020-03-18 21:03 | ED.LOWEXIN ---
HPI - Extremity Injury (Lower) General Chief Complaint: Extremity Injury, Lower Stated Complaint: HAVING PROBLEMS WITH LEFT LEG Time Seen by Provider: 03/18/20 19:53 Source: patient Mode of arrival: Ambulatory Limitations: no limitations History of Present Illness HPI Narrative: 59M former smoker with cardiac history and known L knee internal injury presents with ongoing knee pain. He denies any new injury. He denies any numbness, tingling or weakness. He has recently seen his orthopedist who recommended against surgical intervention and to continue with more conservative therapies. He recently had his pain medication increased from Ultram to oxycodone. He denies any numbness, tingling or weakness. He states that it aches in keeps him awake at night. MD complaint: knee injury Onset (ago): week(s) Injury: Left: knee Type of Injury: unknown Place: other Relieving factors: immobilization and rest Exacerbating factors: weight bearing and movement Context: fall Associated symptoms: snap/pop sensation and swelling Other symptoms: none Treatments prior to arrival: NSAIDS and other Related Data Home Medications Medication Instructions Recorded Confirmed metformin [Glucophage XR] 500 mg PO BIDCC #60 tab 12/25/16 03/05/20 atorvastatin 40 mg PO BEDTIME 10/12/17 03/05/20 insulin aspart U-100 See Rx Instructions .ROUTE .COMPLEX 10/12/17 03/05/20 levothyroxine [Synthroid] 75 mcg PO DAILY 10/12/17 03/05/20 nitroglycerin [Nitrostat] 0.4 mg SUBLINGUAL Q5 MIN PRN PRN 10/12/17 03/05/20 hydrochlorothiazide 25 mg PO DAILY 05/26/18 03/05/20 metoprolol succinate [Toprol XL] 25 mg PO DAILY 05/26/18 03/05/20 fenofibrate 160 mg tablet 160 mg PO DAILY 12/16/18 03/05/20 tramadol 50 mg tablet 50 mg PO BID PRN MDD 2 tabs 12/16/18 03/05/20 omeprazole 20 mg PO DAILY 12/20/18 03/05/20 Xarelto 20 mg PO QPM 02/16/19 03/05/20 aspirin 81 mg PO DAILY 02/16/19 03/05/20 insulin glargine 100 unit/mL (3 35 unit SUB-Q BID ml 08/25/19 03/05/20 mL) subcutaneous pen lisinopril 10 mg tablet 40 mg PO DAILY 08/25/19 03/05/20 gabapentin 300 mg capsule 600 mg PO TID cap 11/29/19 03/05/20 ergocalciferol (vitamin D2) 1,250 1,250 mcg PO QWEEK 11/30/19 03/05/20 mcg (50,000 unit) capsule Previous Rx's Medication Instructions Recorded divalproex 500 mg tablet,extended See Rx Instructions PO .COMPLEX 02/06/20 release 24 hr #360 tab lorazepam 1 mg tablet 1 mg PO DAILY PRN #10 tab 02/06/20 lurasidone 60 mg tablet 60 mg PO QPM #30 tab 03/05/20 Allergies Allergy/AdvReac Type Severity Reaction Status Date / Time Penicillins [PENICILLINS] Allergy Severe Swelling Verified 03/09/20 20:52 of Lip/Tongue/Throat quetiapine AdvReac Intermediate oversedation Verified 03/09/20 20:August Alluna Sleep AdvReac Severe Difficulty Uncoded 03/05/20 09:58 Swallowing Review of Systems Constitutional Constitutional: Denies chills, Denies fatigue, Denies fever(s), Denies frequent falls, Denies lethargy and Denies weakness Eyes Eyes: Denies change in vision, Denies eye discharge, Denies irritation and Denies loss of vision ENT Ears, Nose, Mouth, and Throat: Denies change in voice, Denies dizziness, Denies neck pain, Denies sore throat and Denies throat swelling Cardiovascular Cardiovascular: Denies chest pain, Denies irregular heart rhythm, Denies lightheadedness, Denies palpitations, Denies dyspnea, Denies dyspnea on exertion and Denies orthopnea Respiratory Respiratory: Denies cough, Denies dyspnea, Denies dyspnea on exertion and Denies wheezing Gastrointestinal Gastrointestinal: Denies abdominal pain, Denies change in bowel habits, Denies diarrhea, Denies nausea and Denies vomiting Musculoskeletal Musculoskeletal: Reports arthralgias, Reports joint swelling, Reports limited range of motion, Denies neck pain and Denies numbness Integumentary/Breasts Skin/Breast: Denies pruritus, Denies erythema, Denies rash and Denies wounds Neurologic Neurologic: Denies behavioral changes, Denies confusion, Denies dizziness, Denies frequent falls, Denies loss of vision, Denies numbness and Denies weakness Psychiatric Psychiatric: Denies anxiety, Denies behavioral changes, Denies confusion, Denies depression, Denies homicidal ideation and Denies suicidal ideation Endocrine Endocrine: Denies fatigue, Denies flushing and Denies palpitations Hematologic/Lymphatic Hematologic/Lymphatic: Denies easy bruising Allergic/Immunologic Allergic/Immunologic: Denies urticaria, Denies throat swelling and Denies wheezing Patient History Medical History (Updated 03/18/20 @ 22:10 by Gera Colindres DO) Acute hyperglycemia Atypical chest pain CAD (coronary artery disease) Chest pain, rule out acute myocardial infarction Chronic left shoulder pain Diabetes type 2, controlled HTN (hypertension) Hyperlipidemia Morbid obesity with body mass index (BMI) of 40.0 to 49.9 Obstructive sleep apnea of adult Pulmonary embolism Schizoaffective disorder Tardive dyskinesia Surgical History Hx of CABG Family History Mother Coronary artery disease Father No problems noted. Social History marital status: unmarried,single details: lives with his parents household members: family lives independently: Yes caregiver/support person: Yes housing: house pets and animals: Yes Smoking Status: Former smoker alcohol intake: never substance use type: does not use Smoking Status: Former smoker alcohol intake frequency: 0-2 drinks per day Substance Use Type: does not use Exam Narrative Exam Narrative: GEN: AOx3 and in mild distress EYES: Pupils are equal, round, and reactive to light and accommodation. Extraoccular muscles are intact bilaterally. There is no subconjunctival hemorrhage or exudate. CHEST: Lungs are clear to auscultation bilaterally and free of wheezes, rales, or rhonchi. Heart rate is regular rhythm, there are no murmurs, clicks, rubs, or gallops. There is no chest wall tenderness. ABD: Abdomen is soft and nontender. There is no guarding or rebound. Bowel sounds are normal in all 4 quadrants. There is no mass or organomegaly. EXT: Full but painful ROM of left knee with minimal effusion. No redness or warmth. No ligamentous instability. SKIN: Warm, pink, and dry. No erythema or rash Initial Vital Signs Initial Vital Signs: Vital Signs Temperature 98.9 F 03/18/20 19:39 Pulse Rate 73 03/18/20 19:39 Respiratory Rate 16 03/18/20 19:39 Blood Pressure 157/87 H 03/18/20 19:39 Pulse Oximetry 98 03/18/20 19:39 Procedures Joint Aspiration Joint Asp./Inject. 1: Time Out Performed: Yes Side of body: left Joint Aspirated: knee Ultrasound Guidance: No Skin Prep: Chlorhexidine Local Anesthetic: bupivacaine 0.5% Amount of anesthesia used (mL): 3 Needle Size Used: 22G Patient Tolerated Procedure: Well Complications: none Course Orders Ordered: Discontinued Medications Bupivacaine HCl (Bupivacaine 0.5% (Pf) Vial) 5 ml SUBCUT NOW ONE Stop: 03/18/20 21:58 Last Admin: 03/18/20 22:12 Dose: 5 ml Documented by: AIMEE Vital Signs Vital signs: Vital Signs - 8 hr 03/18/20 22:14 Pulse Rate 61 Respiratory Rate 18 Blood Pressure 142/73 H Pulse Oximetry 98 Discharge Plan Departure Patient Disposition: Home Clinical Impression: Chronic pain of left knee Instructions: DI for Knee Pain Activity Restrictions/Additional Instructions: *You have been diagnosed with [chronic left knee pain, known injury] *What to do: * continue to take medications as directed *Follow up with your primary care provider in 2-3 days, call for an appointment. Let them know you were seen in the Emergency Department and that we ask that you be seen in follow up *Return to ER if you should have any new, worsening or concerning symptoms Prescriptions: No Action lisinopril 10 mg tablet 40 mg PO DAILY RF: 0 gabapentin 300 mg capsule 600 mg PO TID RF: 0 insulin glargine 100 unit/mL (3 mL) insulin pen 35 unit Sub-Q BID RF: 0 lorazepam 1 mg tablet 1 mg PO DAILY PRN (Reason: agitation) Qty: 10 RF: 5 divalproex [Depakote ER] 500 mg tablet extended release 24 hr See Rx Instructions PO .COMPLEX Qty: 360 RF: 3 fenofibrate 160 mg tablet 160 mg PO DAILY RF: 0 tramadol 50 mg tablet 50 mg PO BID MDD 2 tabs PRN (Reason: Pain (Scale Score 4-6)) RF: 0 lurasidone 60 mg tablet 60 mg PO QPM Qty: 30 RF: 1 metformin [Glucophage XR] 500 MG tablet extended release 24 hr 500 mg PO BIDCC Qty: 60 RF: 0 nitroglycerin [Nitrostat] 0.4 mg Tablet, Sublingual 0.4 mg Sublingual Q5 MIN PRN PRN (Reason: Chest Pain) RF: 0 atorvastatin 40 mg Tablet 40 mg PO BEDTIME RF: 0 levothyroxine [Synthroid] 75 mcg Tablet 75 mcg PO DAILY RF: 0 insulin aspart U-100 100 unit/mL Insulin Pen See Rx Instructions .ROUTE .COMPLEX RF: 0 aspirin 81 mg Tablet,Delayed Release (Dr/Ec) 81 mg PO DAILY RF: 0 Xarelto 20 mg Tablet 20 mg PO QPM RF: 0 hydrochlorothiazide 25 mg Tablet 25 mg PO DAILY RF: 0 metoprolol succinate [Toprol XL] 25 MG tablet extended release 24 hr 25 mg PO DAILY RF: 0 omeprazole 20 mg Capsule,Delayed Release(Dr/Ec) 20 mg PO DAILY RF: 0 ergocalciferol (vitamin D2) 1,250 mcg (50,000 unit) capsule 1,250 mcg PO QWEEK RF: 0 Referrals: Sandra Garland MD [Primary Care Provider] -
[2020-03-18] MEDS: BUPIVACAINE 0.5% (PF) VIAL 5 ML SUBCUT (22:12)
[2020-03-18 22:14] VITALS: BP 142/73; PULSE 61; RESP 18; O2SAT 98
== END 2020-03-18 22:15 | disposition home or self-care (01) ==
PROVIDERS: Emergency Provider Emergency Medicine; PCP Family Medicine
DX: M25.562 Pain in left knee (principal); Z79.01 Long term (current) use of anticoagulants; E11.9 Type 2 diabetes mellitus without complications; Z79.4 Long term (current) use of insulin; E66.01 Morbid (severe) obesity due to excess calories; Z68.41 Body mass index [BMI] 40.0-44.9, adult; I25.10 Atherosclerotic heart disease of native coronary artery without angina pectoris
CPT/HCPCS: 20610; 99281; 99283

== ENCOUNTER 2020-03-23 01:03 | Emergency (ER) | payer OTHER, SELFPAY ==
[2019-07-13 01:30] VITALS: BMI 42.5
[2020-03-23 01:18] VITALS: BP 172/97; PULSE 67; RESP 17; TEMP 36.4; O2SAT 98; BMI 44.9
--- NOTE | 2020-03-23 01:26 | ED_ITS ---
HPI - Abdominal Pain General Chief Complaint: Abdominal Pain Stated Complaint: BAD STOMACH PAIN X10 MIN Time Seen by Provider: 03/23/20 01:18 Source: patient Mode of arrival: Ambulatory History of Present Illness HPI narrative: Patient complains of urinary urgency with dysuria just prior to arrival. No prior history UTI. No history of kidney stone. 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 Had no complaints at the time. No recent illness no nausea vomiting diarrhea. No hematuria. No fever chills. No testicular pain. Complains of discomfort the suprapubic region, nonradiating. Dull and achy. In the past week as increased urination at night. No history of prostate evaluation. No previous urologist. Related Data Home Medications Medication Instructions Recorded Confirmed metformin [Glucophage XR] 500 mg PO BIDCC #60 tab 12/25/16 03/19/20 atorvastatin 40 mg PO BEDTIME 10/12/17 03/19/20 insulin aspart U-100 See Rx Instructions .ROUTE .COMPLEX 10/12/17 03/19/20 levothyroxine [Synthroid] 75 mcg PO DAILY 10/12/17 03/19/20 nitroglycerin [Nitrostat] 0.4 mg SUBLINGUAL Q5 MIN PRN PRN 10/12/17 03/19/20 hydrochlorothiazide 25 mg PO DAILY 05/26/18 03/19/20 metoprolol succinate [Toprol XL] 25 mg PO DAILY 05/26/18 03/19/20 fenofibrate 160 mg tablet 160 mg PO DAILY 12/16/18 03/19/20 omeprazole 20 mg PO DAILY 12/20/18 03/19/20 Xarelto 20 mg PO QPM 02/16/19 03/19/20 aspirin 81 mg PO DAILY 02/16/19 03/19/20 insulin glargine 100 unit/mL (3 35 unit SUB-Q BID ml 08/25/19 03/19/20 mL) subcutaneous pen lisinopril 10 mg tablet 40 mg PO DAILY 08/25/19 03/19/20 gabapentin 300 mg capsule 600 mg PO TID cap 11/29/19 03/19/20 ergocalciferol (vitamin D2) 1,250 1,250 mcg PO QWEEK 11/30/19 03/19/20 mcg (50,000 unit) capsule oxycodone 5 mg tablet 5 mg PO Q8H PRN 03/19/20 03/19/20 Previous Rx's Medication Instructions Recorded divalproex 500 mg tablet,extended See Rx Instructions PO .COMPLEX 02/06/20 release 24 hr #360 tab lorazepam 1 mg tablet 1 mg PO DAILY PRN #10 tab 02/06/20 lurasidone 60 mg tablet 60 mg PO QPM #30 tab 03/05/20 tamsulosin [Flomax] 0.4 mg PO BEDTIME #14 cap 03/23/20 Allergies Allergy/AdvReac Type Severity Reaction Status Date / Time Penicillins [PENICILLINS] Allergy Severe Swelling Verified 03/19/20 08:33 of Lip/Tongue/Throat quetiapine AdvReac Intermediate oversedation Verified 03/19/20 08:August Alluna Sleep AdvReac Severe Difficulty Uncoded 03/19/20 08:33 Swallowing Review of Systems Review of Systems Narrative: GENERAL: Denies chills, fatigue, malaise, fever, sweats. HEENT: Denies sinus pain, ear pain, sore throat, difficulty swallowing RESPIRATORY: Denies dyspnea, cough CARDIOVASCULAR: Denies chest pain, palpitations, edema, GASTROINTESTINAL: Denies nausea, vomiting, abdominal pain, diarrhea, constipation, melena. : Denies dysuria, frequency, denies hematuria MUSCULOSKELETAL: denies muscle or bony pain SKIN: Denies rash, skin lesions NEUROLOGIC: Denies weakness, headache, numbness, change in speech, confusion PSYCHIATRIC: No SI or HI or hallucinations ROS Unobtainable: All systems reviewed & are unremarkable except as noted in HPI and below Patient History Medical History (Updated 03/23/20 @ 02:55 by Jesse Malik MD) Acute hyperglycemia Atypical chest pain CAD (coronary artery disease) Chest pain, rule out acute myocardial infarction Chronic left shoulder pain Diabetes type 2, controlled HTN (hypertension) Hyperlipidemia Morbid obesity with body mass index (BMI) of 40.0 to 49.9 Obstructive sleep apnea of adult Pulmonary embolism Schizoaffective disorder Tardive dyskinesia Surgical History Hx of CABG Family History Mother Coronary artery disease Father No problems noted. Social History marital status: unmarried,single details: lives with his parents household members: family lives independently: Yes caregiver/support person: Yes housing: house pets and animals: Yes Smoking Status: Former smoker alcohol intake: never substance use type: does not use Smoking Status: Former smoker alcohol intake frequency: 0-2 drinks per day Substance Use Type: does not use Exam Narrative Exam Narrative: GENERAL: patient appears stated age. Well-nourished, well- developed patient, in no distress, not toxic not dyspneic HEAD: Normocephalic. EYES: Pupils equal round and reactive. No scleral icterus. No injection no discharge ENT: Mucous membranes moist. No drooling no tongue elevation no trismus no malocclusion NECK: Trachea midline. Non tender CARDIOVASCULAR: Regular rate and rhythm without murmurs, gallops, or rubs. RESPIRATORY: Clear to auscultation. Breath sounds equal bilaterally. No wheezes, rales, or rhonchi. GASTROINTESTINAL: Abdomen soft, mild suprapubic tenderness, no peritoneal signs, bowel sounds present, nondistended. EXTREMITIES: No gross deformities. BACK: Nontender without deformity or crepitance. No flank tenderness. NEURO: AOx4. SKIN: Warm and dry PSYCH: Not anxious, is cooperative Initial Vital Signs Initial Vital Signs: Vital Signs Temperature 97.6 F 03/23/20 01:18 Pulse Rate 67 03/23/20 01:18 Respiratory Rate 17 03/23/20 01:18 Blood Pressure 172/97 H 03/23/20 01:18 Pulse Oximetry 98 03/23/20 01:18 Course Orders Ordered: ED Orders 03/23/20 01:35 Complete Blood Count AUTO DIFF Stat Comprehensive Metabolic Panel Stat 03/23/20 01:58 CT kidney ureter bladder (KUB) Stat Discontinued Medications Ketorolac Tromethamine (Ketorolac 60 Mg/2 Ml Vial) 30 mg IM NOW ONE Stop: 03/23/20 01:30 Last Admin: 03/23/20 01:33 Dose: 30 mg Documented by: Reevaluation(s) Reevaluation #1: Reviewed results with patient. At this time no distress. Pain is controlled and improved with toradol. Blood pressure improved 132/73 without intervention. Patient desires discharge home. Agrees with treatment plan follow-up with Urology. Time: :50 Vital Signs Vital signs: Vital Signs - 8 hr 03/23/20 01:18 03/23/20 02:13 03/23/20 02:54 Temperature 97.6 F Pulse Rate 67 Respiratory Rate 17 Blood Pressure 172/97 H 143/64 H Pulse Oximetry 98 94 03/23/20 02:55 Temperature Pulse Rate Respiratory Rate Blood Pressure 132/73 Pulse Oximetry MDM - Abdominal Pain Differential Diagnosis Differential diagnosis: Likely abdominal pain, acute appendicitis, calculus of kidney, constipation and diverticulitis Medical Records Attestation: I reviewed the patient's medical records. Lab Data Attestation: I reviewed the patient's lab results. Result diagrams: 03/23/20 01:35 03/23/20 01:35 Labs: Lab Results 03/23/20 03/23/20 Range/Units 01:35 01:35 WBC 11.5 H (4.5-11.0) X10^3/uL RBC 4.57 (4.5-5.9) X10^6/uL Hgb 13.4 L (13.5-17.5) g/dL Hct 41.6 (41-53) % MCV 91.1 (80-100) fL MCH 29.2 (26-34) PG MCHC 32.1 (30-36) % RDW 14.7 (11.6-14.8) % Plt Count 220 (150-400) X10^3/uL Neut % (Auto) 61.6 (50-75) % Lymph % (Auto) 30.3 (25-40) % [place] % (Auto) 6.5 (3-14) % Eos % (Auto) 0.7 L (2-4) % Baso % (Auto) 0.9 (0-2) % Neut # (Auto) 7100 H (4273-5015) /uL Lymph # (Auto) 3500 (3185-7136) /uL [place] # (Auto) 700 (0-900) /uL Eos # (Auto) 100 (0-450) /uL Baso # (Auto) 100 (0-100) /uL Sodium 138 (137-145) mmol/L Potassium 3.8 (3.4-5.1) mmol/L Chloride 103 (98-107) mmol/L Carbon Dioxide 25 (22-32) mmol/L BUN 29 H (9-20) mg/dL Creatinine 1.17 (0.66-1.25) mg/dL Estimated GFR > 60.0 (>60) mL/min BUN/Creatinine Ratio 24.8 H (6-22) Glucose 167 H (70-100) mg/dL Calcium 9.2 (8.4-10.2) mg/dL Total Bilirubin 0.3 (0.2-1.3) mg/dL AST 24 (17-59) IU/L ALT 20 (<50) IU/L Alkaline Phosphatase 63 (38-126) U/L Total Protein 7.4 (6.3-8.2) g/dL Albumin 4.2 (3.5-5.0) g/dL Globulin 3.2 (1.7-4.1) g/dL Albumin/Globulin Ratio 1.3 (1.0-2.8) Point of care testing: Urine Dip Bedside Urine Glucose 250 mg/dl Bedside Urine Bilirubin - Negative Bedside Urine Ketone - Negative Urine Specific [place] 1.030 Bedside Urine Occult Blood - Negative Bedside Urine pH 6.0 Bedside Urine Protein - Negative Bedside Urine Urobilinogen - Negative Bedside Urine Nitrite - Negative Bedside Urine Leukocytes - Negative Esterase Imaging Data CT scan - abdomen/pelvis: Radiologist's Impression: Impression 1 no obstructive uropathy. Two. Moderate fecal retention MDM Narrative Medical decision making narrative: Appropriate for discharge home. Pain is controlled. White cell count nonspecific. Return instructions reviewed with patient. Urinalysis reviewed. No antibiotics at this time. Patient is never seen urologist before. Never had prostate evaluation. Given symptoms the past week with increased urination and disruption of sleep. Likely developing BPH. Discharge Plan Departure Patient Disposition: Home Clinical Impression: Dysuria Instructions: DI for Dysuria -- Adult Activity Restrictions/Additional Instructions: Return if worse or if any questions concerns. Called provided urology office next week for recheck. Prescription has been sent to [facility]. May start taking it tonight. Prescriptions: New tamsulosin [Flomax] 0.4 mg capsule 0.4 mg PO BEDTIME Qty: 14 RF: 0 No Action lisinopril 10 mg tablet 40 mg PO DAILY RF: 0 gabapentin 300 mg capsule 600 mg PO TID RF: 0 insulin glargine 100 unit/mL (3 mL) insulin pen 35 unit Sub-Q BID RF: 0 lorazepam 1 mg tablet 1 mg PO DAILY PRN (Reason: agitation) Qty: 10 RF: 5 divalproex [Depakote ER] 500 mg tablet extended release 24 hr See Rx Instructions PO .COMPLEX Qty: 360 RF: 3 fenofibrate 160 mg tablet 160 mg PO DAILY RF: 0 lurasidone 60 mg tablet 60 mg PO QPM Qty: 30 RF: 1 oxycodone 5 mg tablet 5 mg PO Q8H PRNRF: 0 metformin [Glucophage XR] 500 MG tablet extended release 24 hr 500 mg PO BIDCC Qty: 60 RF: 0 nitroglycerin [Nitrostat] 0.4 mg Tablet, Sublingual 0.4 mg Sublingual Q5 MIN PRN PRN (Reason: Chest Pain) RF: 0 atorvastatin 40 mg Tablet 40 mg PO BEDTIME RF: 0 levothyroxine [Synthroid] 75 mcg Tablet 75 mcg PO DAILY RF: 0 insulin aspart U-100 100 unit/mL Insulin Pen See Rx Instructions .ROUTE .COMPLEX RF: 0 aspirin 81 mg Tablet,Delayed Release (Dr/Ec) 81 mg PO DAILY RF: 0 Xarelto 20 mg Tablet 20 mg PO QPM RF: 0 hydrochlorothiazide 25 mg Tablet 25 mg PO DAILY RF: 0 metoprolol succinate [Toprol XL] 25 MG tablet extended release 24 hr 25 mg PO DAILY RF: 0 omeprazole 20 mg Capsule,Delayed Release(Dr/Ec) 20 mg PO DAILY RF: 0 ergocalciferol (vitamin D2) 1,250 mcg (50,000 unit) capsule 1,250 mcg PO QWEEK RF: 0 Referrals: Ryan Rosado MD [Physician] - Sandra Garland MD [Primary Care Provider] -
[2020-03-23] MEDS: KETOROLAC 60 MG/2 ML VIAL 30 MG IM (01:33)
[2020-03-23 01:45] LABS: Add Manual Diff / Slide Review NO; Basophils Absolute Auto 100 /uL (0-100); Basophils Percent Auto 0.9 % (0-2); Eosinophils Absolute Auto 100 /uL (0-450); Eosinophils Percent Auto 0.7 % (2-4); Hematocrit 41.6 % (41-53); Hemoglobin 13.4 g/dL (13.5-17.5); Lymphocytes Absolute Auto 3500 /uL (1100-4500); Lymphocytes Percent Auto 30.3 % (25-40); Mean Corpuscular HGB Conc 32.1 % (30-36); Mean Corpuscular Hemoglobin 29.2 PG (26-34); Mean Corpuscular Volume 91.1 fL (80-100); Monocytes Absolute Auto 700 /uL (0-900); Monocytes Percent Auto 6.5 % (3-14); Neutrophils Absolute Auto 7100 /uL (1500-7000); Neutrophils Percent Auto 61.6 % (50-75); Platelet Count 220 X10^3/uL (150-400); Red Blood Cell Count 4.57 X10^6/uL (4.5-5.9); Red Cell Distribution Width 14.7 % (11.6-14.8); White Blood Cell Count 11.5 X10^3/uL (4.5-11.0)
[2020-03-23 01:52] LABS: Alanine Aminotransferase 20 IU/L (<50); Albumin 4.2 g/dL (3.5-5.0); Albumin Globulin Ratio 1.3 (1.0-2.8); Alkaline Phosphatase 63 U/L (38-126); Aspartate Aminotransferase 24 IU/L (17-59); BUN Creatinine Ratio 24.8 (6-22); Bilirubin Total 0.3 mg/dL (0.2-1.3); Blood Urea Nitrogen 29 mg/dL (9-20); Calcium 9.2 mg/dL (8.4-10.2); Carbon Dioxide 25 mmol/L (22-32); Chloride 103 mmol/L (98-107); Estimated Glomerular Filt Rate > 60.0 mL/min (>60); Globulin 3.2 g/dL (1.7-4.1); Glucose 167 mg/dL (70-100); HEMOLYSIS 28 (0-50); Potassium 3.8 mmol/L (3.4-5.1); Sodium 138 mmol/L (137-145); Total Protein 7.4 g/dL (6.3-8.2)
--- NOTE | 2020-03-23 01:58 | DI.CT.S_ITS ---
PROCEDURE: CT KIDNEY URETER BLADDER (KUB) INDICATIONS: abdominal pain TECHNIQUE: Noncontrast 5 mm thick sections acquired from the diaphragms to the symphysis. 5 mm thick coronal and sagittal reformats were then performed. For radiation dose reduction, the following was used: automated exposure control, adjustment of mA and/or kV according to patient size. COMPARISON: [facility], CT, CT ANGIO CHEST ABDOMEN PELVIS, 12/20/2018, 10:52. FINDINGS: Image quality: Excellent. Lung bases: Minimal atelectasis in the right lung. No pleural effusion. Heart size is normal. Post median sternotomy. Gynecomastia partially visualized. Urinary system: Both kidneys are normal in size. No kidney stones. No hydronephrosis or perinephric fat stranding. Both ureters appear non-dilated throughout their expected courses. Bladder wall thickness is normal; no calcified bladder stones. Other solid organs: Liver is normal in size. Hepatic steatosis. Gallbladder is unremarkable. Pancreas is normal in contours. Spleen is normal in size. No adrenal nodules. Peritoneum and bowel: Unenhanced bowel loops demonstrate normal wall thickness and caliber. Moderate prominent stool in the colon. Normal appendix. No free fluid or air. Nodes and vessels: No retroperitoneal or mesenteric adenopathy by size criteria. Aorta and inferior vena cava are normal in caliber. Minimal calcified atherosclerotic plaque in the aorta. Abdominal wall: Tiny periumbilical fat containing hernia. Right ventral abdominal wall subcutaneous injection. Lumbar subcutaneous edema. Pelvis: No free pelvic fluid. No definite inguinal hernias or adenopathy. Bones: No suspicious bony lesions. No vertebral body compression fractures. IMPRESSION: 1. No kidney stones. No hydronephrosis. 2. No acute inflammatory process identified. No free fluid. 3. Moderately prominent stool in the colon. This could be seen in constipation. 4. Hepatic steatosis. This report is concordant with the overnight preliminary interpretation. Dictated by: Erickson Farias M.D. on 03/23/2020 at 6:58 Approved by: Erickson Farias M.D. on 03/23/2020 at 7:06
[2020-03-23 02:13] VITALS: BP 143/64
[2020-03-23 02:54] VITALS: O2SAT 94
[2020-03-23 02:55] VITALS: BP 132/73
== END 2020-03-23 03:02 | disposition home or self-care (01) ==
PROVIDERS: Emergency Provider Emergency Medicine; PCP Family Medicine
DX: R30.0 Dysuria (principal); E11.9 Type 2 diabetes mellitus without complications; I10 Essential (primary) hypertension; E78.5 Hyperlipidemia, unspecified
CPT/HCPCS: 36415; 74176; 80053; 81003; 85025; 96372; 99284; J1885

== ENCOUNTER 2020-03-25 02:59 | Emergency (ER) | payer OTHER, SELFPAY ==
[2019-07-13 01:30] VITALS: BMI 42.5
[2020-03-25] VITALS (19 sets, daily range): BP systolic 140–185; BP diastolic 62–86; PULSE 63–91; RESP 16–26; TEMP 36.7; O2SAT 94–99; BMI 44.9
--- NOTE | 2020-03-25 03:29 | ED_ITS ---
HPI - Fall General Chief Complaint: Chest Pain Stated Complaint: chest pain, fell down stairs, hurt knee Time Seen by Provider: 03/25/20 03:11 Source: patient Mode of arrival: Ambulatory Limitations: no limitations History of Present Illness HPI Narrative: Patient is a 59-year-old male with history of coronary artery disease to presents for the 3rd time this month to the emergency department. He states this evening he awoke from sleep with chest pain min as he was walking he fell down the stairs hitting his head and not losing consciousness. He is on Xarelto. He continues to have chest pain. He did not take any nitroglycerin prior to arrival. He denies any nausea vomiting or weakness. He was seen previ ously this month for left knee pain after a fall for which she is taking oxycodone for. At neck and right shoulder pain. He says his chest pain is similar to previous chest pains he has. MD complaint: fall Onset (ago): hour(s) Fall from: standing Fall witnessed: no Related Data Home Medications Medication Instructions Recorded Confirmed metformin [Glucophage XR] 500 mg PO BIDCC #60 tab 12/25/16 03/19/20 atorvastatin 40 mg PO BEDTIME 10/12/17 03/19/20 insulin aspart U-100 See Rx Instructions .ROUTE .COMPLEX 10/12/17 03/19/20 levothyroxine [Synthroid] 75 mcg PO DAILY 10/12/17 03/19/20 nitroglycerin [Nitrostat] 0.4 mg SUBLINGUAL Q5 MIN PRN PRN 10/12/17 03/19/20 hydrochlorothiazide 25 mg PO DAILY 05/26/18 03/19/20 metoprolol succinate [Toprol XL] 25 mg PO DAILY 05/26/18 03/19/20 fenofibrate 160 mg tablet 160 mg PO DAILY 12/16/18 03/19/20 omeprazole 20 mg PO DAILY 12/20/18 03/19/20 Xarelto 20 mg PO QPM 02/16/19 03/19/20 aspirin 81 mg PO DAILY 02/16/19 03/19/20 insulin glargine 100 unit/mL (3 35 unit SUB-Q BID ml 08/25/19 03/19/20 mL) subcutaneous pen lisinopril 10 mg tablet 40 mg PO DAILY 08/25/19 03/19/20 gabapentin 300 mg capsule 600 mg PO TID cap 11/29/19 03/19/20 ergocalciferol (vitamin D2) 1,250 1,250 mcg PO QWEEK 11/30/19 03/19/20 mcg (50,000 unit) capsule oxycodone 5 mg tablet 5 mg PO Q8H PRN 03/19/20 03/19/20 Previous Rx's Medication Instructions Recorded divalproex 500 mg tablet,extended See Rx Instructions PO .COMPLEX 02/06/20 release 24 hr #360 tab lorazepam 1 mg tablet 1 mg PO DAILY PRN #10 tab 02/06/20 lurasidone 60 mg tablet 60 mg PO QPM #30 tab 03/05/20 tamsulosin [Flomax] 0.4 mg PO BEDTIME #14 cap 03/23/20 Allergies Allergy/AdvReac Type Severity Reaction Status Date / Time Penicillins [PENICILLINS] Allergy Severe Swelling Verified 03/19/20 08:33 of Lip/Tongue/Throat quetiapine AdvReac Intermediate oversedation Verified 03/19/20 08:August Alluna Sleep AdvReac Severe Difficulty Uncoded 03/19/20 08:33 Swallowing Review of Systems Review of Systems ROS Unobtainable: All systems reviewed & are unremarkable except as noted in HPI and below Constitutional Constitutional: Denies chills, Denies fever(s), Denies lethargy and Denies weakness Eyes Eyes: Denies change in vision, Denies eye discharge, Denies irritation and Denies loss of vision ENT Ears, Nose, Mouth, and Throat: Denies change in voice, Denies vertigo, Denies dizziness, Reports neck pain and Denies sore throat Cardiovascular Cardiovascular: Reports as per HPI, Denies dyspnea and Denies dyspnea on exertion Respiratory Respiratory: Denies cough, Denies dyspnea, Denies dyspnea on exertion and Denies wheezing Musculoskeletal Musculoskeletal: Reports as per HPI, Denies deformity, Reports arthralgias, Reports neck pain and Denies numbness Integumentary/Breasts Skin/Breast: Denies pruritus, Denies erythema, Denies rash and Denies wounds Neurologic Neurologic: Denies confusion, Denies vertigo, Denies dizziness, Denies loss of vision, Denies memory loss, Denies numbness and Denies weakness Psychiatric Psychiatric: Denies confusion and Denies memory loss Allergic/Immunologic Allergic/Immunologic: Denies wheezing Patient History Medical History (Updated 03/25/20 @ 06:17 by Tsering Fisher DO) Acute hyperglycemia Atypical chest pain CAD (coronary artery disease) Chest pain, rule out acute myocardial infarction Chronic left shoulder pain Diabetes type 2, controlled HTN (hypertension) Hyperlipidemia Morbid obesity with body mass index (BMI) of 40.0 to 49.9 Obstructive sleep apnea of adult Pulmonary embolism Schizoaffective disorder Tardive dyskinesia Surgical History Hx of CABG Family History Mother Coronary artery disease Father No problems noted. Social History marital status: unmarried,single details: lives with his parents household members: family lives independently: Yes caregiver/support person: Yes housing: house pets and animals: Yes Smoking Status: Former smoker alcohol intake: never substance use type: does not use Smoking Status: Former smoker alcohol intake frequency: 0-2 drinks per day Substance Use Type: does not use Exam Initial Vital Signs Initial Vital Signs: Vital Signs Temperature 98.0 F 03/25/20 03:03 Pulse Rate 63 03/25/20 03:03 Respiratory Rate 18 03/25/20 03:03 Blood Pressure 185/86 H 03/25/20 03:03 Pulse Oximetry 99 03/25/20 03:03 GENERAL: [Well-appearing, well-nourished] and in [no acute] distress. HEENT: Head atraumatic,EOMI, pupils reactive, face symmetric, [moist] mucous membranes NECK: Mild vertebral tenderness at C4-C5 no step-off. C-collar placed in the ED CARDIOVASCULAR: Regular rate and rhythm without murmurs, rubs or gallops. RESPIRATORY: Breath sounds equal bilaterally, no wheezes rales or rhonchi. ABDOMEN: Soft, nontender. Normoactive bowel sounds all 4 quadrants. No guarding or rebound. EXTREMITIES: Normal range of motion, no clubbing or edema. Neurovascularly intact Left knee is stable no effusion. Neurovascularly intact Right shoulder is tender to touch in the AC joint but no significant step-off no clavicle step-off or deformity. Neurovascularly intact NEUROLOGICAL: Alert and oriented x4.Normal gait and speech. Cranial nerves II through XII grossly intact. 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 Course Orders Ordered: ED Orders 03/25/20 03:25 Complete Blood Count AUTO DIFF Stat Comprehensive Metabolic Panel Stat Lipase Stat Partial Thromboplastin Time Stat Prothrombin Time INR Stat Troponin & CK Cardiac Panel Stat 03/25/20 03:32 XR chest 1V Stat EKG-12 Lead Stat 03/25/20 03:37 CT cervical spine wo con Stat CT head/brain wo con Stat XR shoulder RT min 2V Stat 03/25/20 03:41 XR knee LT 3V Stat 03/25/20 05:25 Troponin I Stat Discontinued Medications Morphine Sulfate (Morphine 4 Mg/Ml Inj) 4 mg IV NOW ONE Stop: 03/25/20 04:45 Last Admin: 03/25/20 04:53 Dose: 4 mg Documented by: SUNIL Morphine Sulfate (Morphine 4 Mg/Ml Inj) 4 mg IV NOW ONE Stop: 03/25/20 06:23 Last Admin: 03/25/20 06:27 Dose: 4 mg Documented by: SUNIL Nitroglycerin (Nitroglycerin 0.4 Mg Sl Tab) 0.4 mg SL [id number] PRN PRN Reason: Chest Pain Last Admin: 03/25/20 04:31 Dose: 0.4 mg Documented by: Admin: 03/25/20 04:22 Dose: 0.4 mg Documented by: Admin: 03/25/20 04:12 Dose: 0.4 mg Documented by: JANETH Vital Signs Vital signs: Vital Signs - 8 hr 03/25/20 03:03 03/25/20 03:09 03/25/20 03:30 Temperature 98.0 F Pulse Rate 63 63 68 Respiratory Rate 18 24 23 Blood Pressure 185/86 H Pulse Oximetry 99 98 96 03/25/20 03:31 03/25/20 04:06 03/25/20 04:08 Temperature Pulse Rate 67 71 78 Respiratory Rate 26 H 20 Blood Pressure 158/79 H 162/82 H Pulse Oximetry 96 97 95 03/25/20 04:16 03/25/20 04:20 03/25/20 04:25 Temperature Pulse Rate 88 91 H 82 Respiratory Rate 16 20 16 Blood Pressure 144/64 H 148/66 H 154/68 H Pulse Oximetry 96 95 94 03/25/20 04:30 03/25/20 04:35 03/25/20 04:40 Temperature Pulse Rate 85 82 84 Respiratory Rate 20 17 19 Blood Pressure 167/73 H 162/68 H 163/72 H Pulse Oximetry 94 95 95 03/25/20 04:46 03/25/20 05:00 03/25/20 05:01 Temperature Pulse Rate 77 70 70 Respiratory Rate 22 16 17 Blood Pressure 161/79 H 140/62 Pulse Oximetry 97 95 95 03/25/20 05:30 03/25/20 05:31 03/25/20 06:00 Temperature Pulse Rate 69 69 68 Respiratory Rate 17 16 18 Blood Pressure 148/73 H Pulse Oximetry 95 96 95 03/25/20 06:01 Temperature Pulse Rate 68 Respiratory Rate 18 Blood Pressure 170/78 H Pulse Oximetry 96 MDM - Fall Lab Data Attestation: I reviewed the patient's lab results. Result diagrams: 03/25/20 03:25 03/25/20 03:25 Labs: Lab Results 03/25/20 03/25/20 03/25/20 Range/Units 03:25 03:25 03:25 WBC 6.8 (4.5-11.0) X10^3/uL RBC 4.18 L (4.5-5.9) X10^6/uL Hgb 12.6 L (13.5-17.5) g/dL Hct 38.2 L (41-53) % MCV 91.5 (80-100) fL MCH 30.1 (26-34) PG MCHC 32.9 (30-36) % RDW 14.8 (11.6-14.8) % Plt Count 160 (150-400) X10^3/uL Neut % (Auto) 59.8 (50-75) % Lymph % (Auto) 32.2 (25-40) % [place] % (Auto) 6.3 (3-14) % Eos % (Auto) 1.0 L (2-4) % Baso % (Auto) 0.7 (0-2) % Neut # (Auto) 4100 (5689-7886) /uL Lymph # (Auto) 2200 (3486-1664) /uL [place] # (Auto) 400 (0-900) /uL Eos # (Auto) 100 (0-450) /uL Baso # (Auto) 100 (0-100) /uL PT 11.8 (10.1-12.7) SECONDS INR 1.0 (0.9-1.3) APTT 33 (26.4-36.2) SECONDS Sodium 138 (137-145) mmol/L Potassium 4.2 (3.4-5.1) mmol/L Chloride 107 (98-107) mmol/L Carbon Dioxide 28 (22-32) mmol/L BUN 26 H (9-20) mg/dL Creatinine 1.03 (0.66-1.25) mg/dL Estimated GFR > 60.0 (>60) mL/min BUN/Creatinine Ratio 25.2 H (6-22) Glucose 269 H D (70-100) mg/dL Calcium 9.0 (8.4-10.2) mg/dL Total Bilirubin 0.2 (0.2-1.3) mg/dL AST 21 (17-59) IU/L ALT 18 (<50) IU/L Alkaline Phosphatase 69 (38-126) U/L Total Creatine Kinase 237 H (55-170) U/L CK-MB (CK-2) 1.71 (<2.37) ng/mL CK-MB (CK-2) Rel Index 0.7 L (1.5-5.0) % Troponin I < 0.012 (0.01-0.034) ng/mL Total Protein 6.5 (6.3-8.2) g/dL Albumin 3.7 (3.5-5.0) g/dL Globulin 2.8 (1.7-4.1) g/dL Albumin/Globulin Ratio 1.3 (1.0-2.8) Lipase 145 (23-300) U/L 03/25/20 Range/Units 05:25 WBC (4.5-11.0) X10^3/uL RBC (4.5-5.9) X10^6/uL Hgb (13.5-17.5) g/dL Hct (41-53) % MCV (80-100) fL MCH (26-34) PG MCHC (30-36) % RDW (11.6-14.8) % Plt Count (150-400) X10^3/uL Neut % (Auto) (50-75) % Lymph % (Auto) (25-40) % [place] % (Auto) (3-14) % Eos % (Auto) (2-4) % Baso % (Auto) (0-2) % Neut # (Auto) (6086-8039) /uL Lymph # (Auto) (7940-5480) /uL [place] # (Auto) (0-900) /uL Eos # (Auto) (0-450) /uL Baso # (Auto) (0-100) /uL PT (10.1-12.7) SECONDS INR (0.9-1.3) APTT (26.4-36.2) SECONDS Sodium (137-145) mmol/L Potassium (3.4-5.1) mmol/L Chloride (98-107) mmol/L Carbon Dioxide (22-32) mmol/L BUN (9-20) mg/dL Creatinine (0.66-1.25) mg/dL Estimated GFR (>60) mL/min BUN/Creatinine Ratio (6-22) Glucose (70-100) mg/dL Calcium (8.4-10.2) mg/dL Total Bilirubin (0.2-1.3) mg/dL AST (17-59) IU/L ALT (<50) IU/L Alkaline Phosphatase (38-126) U/L Total Creatine Kinase (55-170) U/L CK-MB (CK-2) (<2.37) ng/mL CK-MB (CK-2) Rel Index (1.5-5.0) % Troponin I < 0.012 (0.01-0.034) ng/mL Total Protein (6.3-8.2) g/dL Albumin (3.5-5.0) g/dL Globulin (1.7-4.1) g/dL Albumin/Globulin Ratio (1.0-2.8) Lipase (23-300) U/L Imaging Data CT scan - head: Radiologist's Impression: Preliminary report no acute intracranial abnormality CT - cervical spine: Radiologist's Impression: Preliminary report: No acute traumatic injury is identified multilevel spondylitic changes of cervical spine as detailed Chest x-ray: Radiologist's Impression: No acute cardio pulmonary abnormality is identified Extremity x-ray #1: Radiologist's Impression: Right shoulder: Degenerative changes of glenohumeral and acromioclavicular joints without acute traumatic injury. Soft tissue calcification adjacent to the greater tuberosity suggesting rotator cuff pathology. No acute traumatic injuries identified Extremity x-ray #2: Radiologist's Impression: Left knee: No fracture identified ECG Data Attestation: I personally reviewed and interpreted this ECG as follows: Prior ECG tracings: available for review Interpretation: Normal sinus rhythm rate 63 p.r. interval 156 your S [address] changes or T-wave inversions similar to previous EKGs Q-waves noted inferiorly similar to prior MDM Narrative Medical decision making narrative: The patient called as a modified trauma based on head injury and anticoagulation. No sign of acute injury not complaining of headache head CT is negative. He is given nitroglycerin for his chest pain however previously opiate seemed to work best. He is given morphine for his aches and pains of his left knee and right shoulder as well. Repeat troponin is negative. He says he has baseline chest pain of a 3. At this time his biggest complaint is his left knee. Recommend outpatient follow-up in MRI. He is followed by pain management Discharge Plan Departure Patient Disposition: Home Clinical Impression: Atypical chest pain Closed head injury Qualifiers: Encounter type: initial encounter Qualified Code(s): S09.90XA - Unspecified injury of head, initial encounter Muscle strain of right shoulder Qualifiers: Encounter type: initial encounter Qualified Code(s): S46.911A - Strain of unspecified muscle, fascia and tendon at shoulder and upper arm level, right arm, initial encounter Instructions: DI for Atypical Chest Pain, Closed Head Injury Activity Restrictions/Additional Instructions: *You have been diagnosed with atypical chest pain, closed head injury, right shoulder strain *What to do: You may require further imaging such as an MRI of your right shoulder few continue to have pain. Increase use as tolerated *Continue to take medications as directed Please take your pain medications as directed follow-up with pain management *Follow up with your primary care provider in 2-3 days *Return to ER if you should have worsening chest pain, shortness of breath, p ersistent vomiting, weakness, numbness, tingling or any new, worsening or concerning symptoms Prescriptions: No Action lisinopril 10 mg tablet 40 mg PO DAILY RF: 0 gabapentin 300 mg capsule 600 mg PO TID RF: 0 insulin glargine 100 unit/mL (3 mL) insulin pen 35 unit Sub-Q BID RF: 0 lorazepam 1 mg tablet 1 mg PO DAILY PRN (Reason: agitation) Qty: 10 RF: 5 divalproex [Depakote ER] 500 mg tablet extended release 24 hr See Rx Instructions PO .COMPLEX Qty: 360 RF: 3 fenofibrate 160 mg tablet 160 mg PO DAILY RF: 0 lurasidone 60 mg tablet 60 mg PO QPM Qty: 30 RF: 1 oxycodone 5 mg tablet 5 mg PO Q8H PRNRF: 0 metformin [Glucophage XR] 500 MG tablet extended release 24 hr 500 mg PO BIDCC Qty: 60 RF: 0 nitroglycerin [Nitrostat] 0.4 mg Tablet, Sublingual 0.4 mg Sublingual Q5 MIN PRN PRN (Reason: Chest Pain) RF: 0 atorvastatin 40 mg Tablet 40 mg PO BEDTIME RF: 0 levothyroxine [Synthroid] 75 mcg Tablet 75 mcg PO DAILY RF: 0 insulin aspart U-100 100 unit/mL Insulin Pen See Rx Instructions .ROUTE .COMPLEX RF: 0 aspirin 81 mg Tablet,Delayed Release (Dr/Ec) 81 mg PO DAILY RF: 0 Xarelto 20 mg Tablet 20 mg PO QPM RF: 0 hydrochlorothiazide 25 mg Tablet 25 mg PO DAILY RF: 0 metoprolol succinate [Toprol XL] 25 MG tablet extended release 24 hr 25 mg PO DAILY RF: 0 omeprazole 20 mg Capsule,Delayed Release(Dr/Ec) 20 mg PO DAILY RF: 0 tamsulosin [Flomax] 0.4 mg capsule 0.4 mg PO BEDTIME Qty: 14 RF: 0 ergocalciferol (vitamin D2) 1,250 mcg (50,000 unit) capsule 1,250 mcg PO QWEEK RF: 0 Referrals: Sandra Garland MD [Primary Care Provider] -
--- NOTE | 2020-03-25 03:32 | DI.RAD.S_ITS ---
PROCEDURE: XR CHEST 1V INDICATIONS: chest pain TECHNIQUE: One view of the chest was acquired. COMPARISON: [facility], CR, XR CHEST 1V, 03/11/2020, 17:11. FINDINGS: Surgical changes and devices: Median sternotomy wires. Lungs and pleura: Lungs are clear. No pleural effusions or pneumothorax. Mediastinum: Mediastinal contours appear normal. Heart is enlarged Bones and chest wall: No suspicious bony lesions. Overlying soft tissues appear unremarkable. IMPRESSION: No acute cardiopulmonary disease process. Dictated by: Latosha Turner MD, PhD on 03/25/2020 at 8:33 Approved by: Latosha Turner MD, PhD on 03/25/2020 at 8:33
--- NOTE | 2020-03-25 03:37 | DI.RAD.S_ITS ---
PROCEDURE: XR SHOULDER RT MIN 2V INDICATIONS: fall down stairs TECHNIQUE: 3 views of the shoulder were acquired. COMPARISON: None. FINDINGS: Bones: No fractures or dislocations. No suspicious bony lesions. Visualized ribs appear intact. Mild glenohumeral and acromioclavicular joint osteoarthritis. Soft tissues: Calcification noted adjacent to the lateral margin of right humeral head compatible with rotator cuff calcific tendinitis. IMPRESSION: No fracture. No acute osseous lesion. If symptoms and/or clinical suspicion for pathology persists, further assessment with repeat radiographs (7-10 days) or advanced imaging (e.g. CT, MRI or bone scan) should be considered. Dictated by: Latosha Turner MD, PhD on 03/25/2020 at 8:36 Approved by: Latosha Turner MD, PhD on 03/25/2020 at 8:37
--- NOTE | 2020-03-25 03:37 | DI.CT.S_ITS ---
PROCEDURE: CT CERVICAL SPINE WO CON INDICATIONS: Pain TECHNIQUE: Noncontrast 3 mm thick sections acquired from the skull base to the T4 level. Sagittal and coronal reformats were then constructed. For radiation dose reduction, the following was used: automated exposure control, adjustment of mA and/or kV according to patient size. COMPARISON: None. FINDINGS: Image quality: Excellent. Bones: No fractures or dislocations. Visualized superior ribs are intact. Spine degenerative disc disease and facet arthropathy. Severe C5-C6 central canal narrowing secondary to degenerative disc changes. Soft tissues: Prevertebral soft tissues are normal in thickness. No paravertebral hematomas. No apical pneumothoraces. IMPRESSION: No fracture. No acute osseous lesion. If symptoms and/or clinical suspicion for pathology persists, evaluation with MRI should be considered for further assessment. Dictated by: Latosha Turner MD, PhD on 03/25/2020 at 8:04 Approved by: Latosha Turner MD, PhD on 03/25/2020 at 8:21
--- NOTE | 2020-03-25 03:37 | DI.CT.S_ITS ---
PROCEDURE: CT HEAD/BRAIN WO CON INDICATIONS: fall down stairs on Xarelto TECHNIQUE: Noncontrast 4.5 mm thick angled axial sections acquired from the foramen magnum to the vertex, with coronal and sagittal reformats. For radiation dose reduction, the following was used: automated exposure control, adjustment of mA and/or kV according to patient size. COMPARISON: [facility], CT, CT HEAD/BRAIN WO CON, 05/26/2018, 14:32. [facility], CT, CT HEAD/BRAIN WO CON, 01/28/2018, 17:16. FINDINGS: Image quality: Excellent. CSF spaces: Basal cisterns are patent. No extra-axial fluid collections. The ventricles are symmetric in size and shape. Brain: No intracranial bleeds or masses. There is cerebral volume loss for age, with resultant ventricular and sulcal prominence. There are periventricular and deep white matter chronic small vessel ischemic changes. There is intracranial internal carotid artery atherosclerosis. Skull and face: Calvarium and visualized facial bones appear intact, without suspicious lesions. Sinuses: Mild mucosal thickening noted in the visualized right maxillary sinus. Partially visualized left maxillary sinus mucous retention cyst versus polyp. The mastoids are clear. IMPRESSION: No acute intracranial disease process. Dictated by: Latosha Turner MD, PhD on 03/25/2020 at 8:02 Approved by: Latosha Turner MD, PhD on 03/25/2020 at 8:04
[2020-03-25 03:38] LABS: Add Manual Diff / Slide Review NO; Basophils Absolute Auto 100 /uL (0-100); Basophils Percent Auto 0.7 % (0-2); Eosinophils Absolute Auto 100 /uL (0-450); Hematocrit 38.2 % (41-53); Hemoglobin 12.6 g/dL (13.5-17.5); Lymphocytes Absolute Auto 2200 /uL (1100-4500); Lymphocytes Percent Auto 32.2 % (25-40); Mean Corpuscular HGB Conc 32.9 % (30-36); Mean Corpuscular Hemoglobin 30.1 PG (26-34); Mean Corpuscular Volume 91.5 fL (80-100); Monocytes Absolute Auto 400 /uL (0-900); Monocytes Percent Auto 6.3 % (3-14); Neutrophils Absolute Auto 4100 /uL (1500-7000); Neutrophils Percent Auto 59.8 % (50-75); Platelet Count 160 X10^3/uL (150-400); Red Blood Cell Count 4.18 X10^6/uL (4.5-5.9); Red Cell Distribution Width 14.8 % (11.6-14.8); White Blood Cell Count 6.8 X10^3/uL (4.5-11.0)
[2020-03-25 03:39] LABS: Prothrombin Time 11.8 SECONDS (10.1-12.7)
--- NOTE | 2020-03-25 03:41 | DI.RAD.S_ITS ---
PROCEDURE: XR KNEE LT 3V INDICATIONS: fall TECHNIQUE: 3 views of the knee were acquired. COMPARISON: [facility], CR, XR KNEE LT 3V, 12/06/2019, 2:52. FINDINGS: Bones: No fractures or dislocations. No suspicious bony lesions. Soft tissues: No joint effusion. No suspicious soft tissue calcifications. IMPRESSION: No fracture. No osseous lesion. If symptoms and/or clinical suspicion for pathology persists, further assessment with repeat radiographs (7-10 days) or advanced imaging (e.g. CT, MRI or bone scan) should be considered. Dictated by: Latosha Turner MD, PhD on 03/25/2020 at 8:33 Approved by: Latosha Turner MD, PhD on 03/25/2020 at 8:36
[2020-03-25 03:43] LABS: Alanine Aminotransferase 18 IU/L (<50); Albumin 3.7 g/dL (3.5-5.0); Albumin Globulin Ratio 1.3 (1.0-2.8); Alkaline Phosphatase 69 U/L (38-126); Aspartate Aminotransferase 21 IU/L (17-59); BUN Creatinine Ratio 25.2 (6-22); Bilirubin Total 0.2 mg/dL (0.2-1.3); Blood Urea Nitrogen 26 mg/dL (9-20); Carbon Dioxide 28 mmol/L (22-32); Chloride 107 mmol/L (98-107); Creatine Kinase 237 U/L (55-170); Estimated Glomerular Filt Rate > 60.0 mL/min (>60); Globulin 2.8 g/dL (1.7-4.1); Glucose 269 mg/dL (70-100); HEMOLYSIS < 15 (0-50); Lipase 145 U/L (23-300); PTT Partial Thromboplastin Tim 33 SECONDS (26.4-36.2); Potassium 4.2 mmol/L (3.4-5.1); Sodium 138 mmol/L (137-145); Total Protein 6.5 g/dL (6.3-8.2)
[2020-03-25 03:55] LABS: Troponin I < 0.012 ng/mL (0.01-0.034)
[2020-03-25 03:58] LABS: CKMB % Relative Index 0.7 % (1.5-5.0); Creatine Kinase MB 1.71 ng/mL (<2.37)
[2020-03-25] MEDS: NITROGLYCERIN 0.4 MG SL TAB SL ×3 (04:12→04:31)
--- NOTE | 2020-03-25 04:51 | PC.NURSE ---
C Spine cleared by Dr Fisher, C-collar removed.
[2020-03-25] MEDS: MORPHINE 4 MG/ML INJ IV ×2 (04:53→06:27)
[2020-03-25 06:00] LABS: Troponin I < 0.012 ng/mL (0.01-0.034)
== END 2020-03-25 06:30 | disposition home or self-care (01) ==
PROVIDERS: Emergency Provider Emergency Medicine; PCP Family Medicine
DX: R07.89 Other chest pain (principal); S46.911A Strain of unspecified muscle, fascia and tendon at shoulder and upper arm level, right arm, initial encounter; M54.2 Cervicalgia; M25.562 Pain in left knee; W19.XXXA Unspecified fall, initial encounter; I11.0 Hypertensive heart disease with heart failure; I25.10 Atherosclerotic heart disease of native coronary artery without angina pectoris; S09.90XA Unspecified injury of head, initial encounter; Z79.82 Long term (current) use of aspirin; Z79.01 Long term (current) use of anticoagulants; E11.9 Type 2 diabetes mellitus without complications; E66.9 Obesity, unspecified; Z68.41 Body mass index [BMI] 40.0-44.9, adult; I26.99 Other pulmonary embolism without acute cor pulmonale
CPT/HCPCS: 36415; 70450; 71045; 72125; 73030; 73562; 80053; 82550; 82553; 83690; 84484; 85025; 85610; 85730; 93005; 93010; 96374; 96376; 99285; J2270

== ENCOUNTER 2020-04-07 11:21 | Emergency (ER) | payer OTHER, SELFPAY ==
[2019-07-13 01:30] VITALS: BMI 42.5
[2020-04-07] VITALS (15 sets, daily range): BP systolic 130–152; BP diastolic 63–83; PULSE 54–65; RESP 14–25; TEMP 36.6–36.7; O2SAT 94–96; BMI 44.9
--- NOTE | 2020-04-07 11:31 | DI.CT.S_ITS ---
PROCEDURE: CT HEAD/BRAIN WO CON INDICATIONS: Trauma TECHNIQUE: Noncontrast 4.5 mm thick angled axial sections acquired from the foramen magnum to the vertex, with coronal and sagittal reformats. For radiation dose reduction, the following was used: automated exposure control, adjustment of mA and/or kV according to patient size. COMPARISON: [facility], CT, CT HEAD/BRAIN WO CON, 03/25/2020, 3:40. FINDINGS: Image quality: Excellent. CSF spaces: Basal cisterns are patent. No extra-axial fluid collections. The ventricles are symmetric in size and shape. Brain: No intracranial bleeds or masses. There is cerebral volume loss for age, with resultant ventricular and sulcal prominence. There are periventricular and deep white matter chronic small vessel ischemic changes. There is intracranial internal carotid artery atherosclerosis. Skull and face: Calvarium and visualized facial bones appear intact, without suspicious lesions. Sinuses: Visualized sinuses and mastoids are clear. IMPRESSION: No acute intracranial findings. Dictated by: Ann Marie Hensley M.D. on 04/07/2020 at 11:05 Approved by: Ann Marie Hensley M.D. on 04/07/2020 at 11:07
--- NOTE | 2020-04-07 11:31 | DI.CT.S_ITS ---
PROCEDURE: CT CHEST ABD PEL W CON INDICATIONS: Trauma TECHNIQUE: After the administration of intravenous contrast, 5 mm thick sections acquired from the lung apices to the symphysis. 2.5 mm thick coronal and sagittal reformats were acquired. Additional 7 mm thick coronal maximum intensity projection (MIP) reformats acquired through the lungs. Optional 10-minute delayed imaging may be performed from the kidneys to the bladder. For radiation dose reduction, the following was used: automated exposure control, adjustment of mA and/or kV according to patient size. COMPARISON: None. FINDINGS: Image quality: Excellent. CHEST: Lungs: No pulmonary contusions or lacerations. No acute airspace opacities. No pneumothorax or hemothorax. Central and peripheral airways appear patent and normal in caliber. Mediastinum: No mediastinal hematomas. Heart size is normal. There are coronary artery calcifications noted. No pericardial effusion. Thoracic aorta and pulmonary arteries demonstrate normal size and enhancement. Scattered atheromatous calcifications are present within the aortic arch. No mediastinal or hilar adenopathy. Esophagus is normal in caliber. No hiatal hernia. Chest wall: Patient is status post median sternotomy. No rib fractures. No subcutaneous emphysema. No axillary or supraclavicular adenopathy. Thyroid gland is unremarkable . ABDOMEN: Solid organs: Liver is normal in size and enhancement, without lacerations. Gallbladder is contracted . Biliary system is non-dilated. Pancreas enhances normally, without transection. Spleen is normal in size and enhancement, without lacerations. No adrenal hematomas. Both kidneys enhance normally, without hydronephrosis or lacerations. Peritoneum and bowel: No free fluid or air. Unenhanced bowel loops demonstrate normal wall thickness and caliber. The appendix is thin walled and gas filled. Nodes and vessels: No retroperitoneal or mesenteric adenopathy. Aorta and inferior vena cava are normal in size and enhancement. There are scattered atheromatous calcifications throughout the aorta and iliac arteries bilaterally. Miscellaneous: No ventral hernias. PELVIS: Genitourinary: Bladder wall thickness is normal. Miscellaneous: No inguinal adenopathy. There is a small fat containing left inguinal hernia. Bones: Pelvic ring and hip joints appear intact. No vertebral compression fractures. REFERENCE MATERIALS DELETE FROM FINAL REPORT AAST liver injury grading: Grade 1: * Hematoma, subcapsular, <10% surface area. * Laceration, capsular tear, <1 cm deep. Grade 2: * Hematoma, subcapsular; 10-50% surface area. * Hematoma, intraparenchymal, <10 cm diameter. * Laceration, capsular tear, 1-3 cm deep, <10 cm length. Grade 3: * Hematoma, subcapsular; >50% surface area, or ruptured with active bleeding. * Hematoma, intraparenchymal, >10 cm diameter. * Laceration, capsular tear, >3 cm deep. Grade 4: * Hematoma, ruptured intraparenchymal with active bleeding. * Laceration, parenchymal disruption involving 25-75% of hepatic lobes OR * 1-3 [place] segments within 1 lobe. Grade 5: * Laceration, parenchymal disruption involving >75% of hepatic lobe OR * >3 [place] segments within 1 lobe. * Vascular, juxtahepatic venous injuries (IVC, major hepatic vein). Grade 6: * Vascular, hepatic avulsion. AAST splenic injury grading: Grade 1: * Hematoma, subcapsular, <10% surface area. * Capsular laceration, <1 cm deep. Grade 2: * Hematoma, subcapsular, 10-50% surface area. * Hematoma, intraparenchymal, <5 cm diameter. * Laceration, 1-3 cm deep not involving trabecular vessels. Grade 3: * Hematoma, subcapsular, >50% of surface area or expanding. * Hematoma, intraparenchymal >5 cm or expanding. * Laceration, >3 cm deep or involving trabecular vessels. * Ruptured subcapsular or parenchymal hematoma. Grade 4: * Laceration involving segmental or hilar vessels with major devascularization (>25% of spleen). Grade 5: * Shattered spleen. * Hilar vascular injury with devascularized spleen. AAST pancreatic injury grading: Grade 1: * hematoma with minor contusion or laceration; no duct injury. Grade 2: * major contusion or laceration, without duct injury. Grade 3: * distal laceration or parenchymal injury, with ductal injury. Grade 4: * proximal laceration or parenchymal injury, with injury to bile duct/ampulla. Grade 5: * massive disruption to pancreatic head. AAST renal injury grading: Grade 1: * Contusion or non-enlarging subcapsular hematoma, NO laceration. Grade 2: * Superficial laceration <1 cm deep, not involving collecting system. * Non-expanding perirenal hematoma. Grade 3: * Laceration >1 cm, not involving collecting system or renal pelvis, no urine extravasation. Grade 4: * Laceration extends to renal pelvis, or with urine extravasation. Grade 5: * Shattered kidney. * Devascularized kidney due to hilar injury. IMPRESSION: 1. No acute pulmonary or intra-abdominal trauma . 2. Normal appendix. 3. Aortic and coronary artery atherosclerosis. Dictated by: Ann Marie Hensley M.D. on 04/07/2020 at 11:30 Approved by: Ann Marie Hensley M.D. on 04/07/2020 at 11:36
--- NOTE | 2020-04-07 11:31 | DI.CT.S_ITS ---
PROCEDURE: CT CERVICAL SPINE WO CON INDICATIONS: Trauma TECHNIQUE: Noncontrast 3 mm thick sections acquired from the skull base to the T4 level. Sagittal and coronal reformats were then constructed. For radiation dose reduction, the following was used: automated exposure control, adjustment of mA and/or kV according to patient size. COMPARISON: [facility], CT, CT CERVICAL SPINE WO CON, 03/25/2020, 3:40. FINDINGS: Image quality: Excellent. Bones: No fractures or dislocations. There is severe degenerative change throughout the cervical spine including osteophytosis, endplate sclerosis, and intervertebral disc space narrowing. There is loss of the expected cervical lordosis. Visualized superior ribs are intact. Soft tissues: Prevertebral soft tissues are normal in thickness. No paravertebral hematomas. No apical pneumothoraces. IMPRESSION: 1. No acute cervical spine injury. 2. 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 Dictated by: Ann Marie Hensley M.D. on 04/07/2020 at 11:11 Approved by: Ann Marie Hensley M.D. on 04/07/2020 at 11:13
[2020-04-07 11:38] LABS: Add Manual Diff / Slide Review NO; Basophils Absolute Auto 100 /uL (0-100); Basophils Percent Auto 0.8 % (0-2); Eosinophils Absolute Auto 100 /uL (0-450); Eosinophils Percent Auto 1.5 % (2-4); Hematocrit 41.4 % (41-53); Hemoglobin 13.4 g/dL (13.5-17.5); Lymphocytes Absolute Auto 2800 /uL (1100-4500); Lymphocytes Percent Auto 36.2 % (25-40); Mean Corpuscular HGB Conc 32.3 % (30-36); Mean Corpuscular Hemoglobin 29.9 PG (26-34); Mean Corpuscular Volume 92.5 fL (80-100); Monocytes Absolute Auto 400 /uL (0-900); Monocytes Percent Auto 4.7 % (3-14); Neutrophils Absolute Auto 4400 /uL (1500-7000); Neutrophils Percent Auto 56.8 % (50-75); Platelet Count 158 X10^3/uL (150-400); Red Blood Cell Count 4.48 X10^6/uL (4.5-5.9); Red Cell Distribution Width 14.8 % (11.6-14.8); White Blood Cell Count 7.7 X10^3/uL (4.5-11.0)
[2020-04-07 11:58] LABS: Prothrombin Time 11.3 SECONDS (10.1-12.7)
[2020-04-07 12:04] LABS: Alanine Aminotransferase 42 IU/L (<50); Albumin 3.6 g/dL (3.5-5.0); Albumin Globulin Ratio 1.3 (1.0-2.8); Alkaline Phosphatase 70 U/L (38-126); Aspartate Aminotransferase 24 IU/L (17-59); Bilirubin Total 0.1 mg/dL (0.2-1.3); Blood Urea Nitrogen 24 mg/dL (9-20); Calcium 8.8 mg/dL (8.4-10.2); Carbon Dioxide 29 mmol/L (22-32); Chloride 102 mmol/L (98-107); Creatine Kinase 114 U/L (55-170); Estimated Glomerular Filt Rate > 60.0 mL/min (>60); Ethanol (ETOH) < 10 mg/dL; Globulin 2.8 g/dL (1.7-4.1); Glucose 251 mg/dL (70-100); HEMOLYSIS < 15 (0-50); Lipase 105 U/L (23-300); Potassium 3.7 mmol/L (3.4-5.1); Sodium 138 mmol/L (137-145); Total Protein 6.4 g/dL (6.3-8.2)
[2020-04-07 12:15] LABS: Troponin I < 0.012 ng/mL (0.01-0.034)
--- NOTE | 2020-04-07 12:17 | ED_ITS ---
HPI - Trauma General Chief Complaint: Trauma Stated Complaint: chest pain, fall on xarelto Time Seen by Provider: 04/07/20 11:21 Source: patient Mode of arrival: EMS Limitations: no limitations History of Present Illness HPI narrative: 59-year-old male former smoker with extensive cardiac history and chronic pain of his left knee is known well to myself and other staff. He presents by EMS secondary to a fall down as many as 8 stairs with subsequent chest pain. He states the fall was because he has been having some dizziness for the past few days and also states that his left knee hurt and then give out on him. He started developing chest pain after the fall and took 3 of his own nitro which did not change the pain. The pain is similar to that which he has almost daily. It is sharp and at times achy, left anterior chest and does not radiate. There are no exertional components to this. He had a catheterization in the fall of 2019 which demonstrated no occlusions that were amenable to stent placement. He has had frequent visits here in with orthopedics to evaluate his left knee and per the patient he is scheduled to have a procedure to ?burning nerve ?. EMS gave aspirin and another nitro which causes blood pressure to drop by 30 points and did nothing to affect his pain. He is on Eliquis and was therefore activated as a modified trauma. He states he thinks he hit his head and otherwise has full recall. He denies any nausea or vomiting. He has some right sided neck pain. His chest pain is still present, 7/10. He denies any shortness of breath, nausea, vomiting, abdominal pain hip pain. He does have left knee pain which is consistent with his chronic pain MD complaint: fall, injury and pain Onset (ago): minute(s) Loss of Consciousness: no Location: head, neck and chest Location - Extremities: Left: knee Severity: moderate Context: fall Associated symptoms: chest pain and weakness Related Data Home Medications Medication Instructions Recorded Confirmed metformin [Glucophage XR] 500 mg PO BIDCC #60 tab 12/25/16 03/19/20 atorvastatin 40 mg PO BEDTIME 10/12/17 03/19/20 insulin aspart U-100 See Rx Instructions .ROUTE .COMPLEX 10/12/17 03/19/20 levothyroxine [Synthroid] 75 mcg PO DAILY 10/12/17 03/19/20 nitroglycerin [Nitrostat] 0.4 mg SUBLINGUAL Q5 MIN PRN PRN 10/12/17 03/19/20 hydrochlorothiazide 25 mg PO DAILY 05/26/18 03/19/20 metoprolol succinate [Toprol XL] 25 mg PO DAILY 05/26/18 03/19/20 fenofibrate 160 mg tablet 160 mg PO DAILY 12/16/18 03/19/20 omeprazole 20 mg PO DAILY 12/20/18 03/19/20 Xarelto 20 mg PO QPM 02/16/19 03/19/20 aspirin 81 mg PO DAILY 02/16/19 03/19/20 insulin glargine 100 unit/mL (3 35 unit SUB-Q BID ml 08/25/19 03/19/20 mL) subcutaneous pen lisinopril 10 mg tablet 40 mg PO DAILY 08/25/19 03/19/20 gabapentin 300 mg capsule 600 mg PO TID cap 11/29/19 03/19/20 ergocalciferol (vitamin D2) 1,250 1,250 mcg PO QWEEK 11/30/19 03/19/20 mcg (50,000 unit) capsule oxycodone 5 mg tablet 5 mg PO Q8H PRN 03/19/20 03/19/20 Previous Rx's Medication Instructions Recorded divalproex 500 mg tablet,extended See Rx Instructions PO .COMPLEX 02/06/20 release 24 hr #360 tab lorazepam 1 mg tablet 1 mg PO DAILY PRN #10 tab 02/06/20 lurasidone 60 mg tablet 60 mg PO QPM #30 tab 03/05/20 tamsulosin [Flomax] 0.4 mg PO BEDTIME #14 cap 03/23/20 Allergies Allergy/AdvReac Type Severity Reaction Status Date / Time Penicillins [PENICILLINS] Allergy Severe Swelling Verified 03/19/20 08:33 of Lip/Tongue/Throat quetiapine AdvReac Intermediate oversedation Verified 03/19/20 08:August Alluna Sleep AdvReac Severe Difficulty Uncoded 03/19/20 08:33 Swallowing Review of Systems Constitutional Constitutional: Denies chills, Denies fatigue, Denies fever(s), Denies frequent falls, Denies lethargy and Denies weakness Eyes Eyes: Denies change in vision, Denies eye discharge, Denies irritation and Denies loss of vision ENT Ears, Nose, Mouth, and Throat: Denies change in voice, Denies dizziness, Reports neck pain (Right-sided paraspinal musculature), Denies sore throat and Denies throat swelling Cardiovascular Cardiovascular: Reports chest pain, Denies irregular heart rhythm, Denies lightheadedness, Denies palpitations, Denies dyspnea, Denies dyspnea on exertion and Denies orthopnea Respiratory Respiratory: Denies cough, Denies dyspnea, Denies dyspnea on exertion and Denies wheezing Gastrointestinal Gastrointestinal: Denies abdominal pain, Denies change in bowel habits, Denies diarrhea, Denies nausea and Denies vomiting Musculoskeletal Musculoskeletal: Reports arthralgias, Reports limited range of motion, Reports neck pain (Right-sided paraspinal musculature) and Denies numbness Integumentary/Breasts Skin/Breast: Denies pruritus, Denies erythema, Denies rash and Denies wounds Neurologic Neurologic: Denies behavioral changes, Denies confusion, Denies dizziness, Denies frequent falls, Denies loss of vision, Denies numbness and Denies we akness Psychiatric Psychiatric: Denies anxiety, Denies behavioral changes, Denies confusion, Denies depression, Denies homicidal ideation and Denies suicidal ideation Endocrine Endocrine: Denies fatigue, Denies flushing and Denies palpitations Hematologic/Lymphatic Hematologic/Lymphatic: Denies easy bruising Allergic/Immunologic Allergic/Immunologic: Denies urticaria, Denies throat swelling and Denies wheezing Patient History Medical History (Updated 04/07/20 @ 15:33 by Gera Colindres DO) Acute hyperglycemia Atypical chest pain CAD (coronary artery disease) Chest pain, rule out acute myocardial infarction Chronic left shoulder pain Diabetes type 2, controlled HTN (hypertension) Hyperlipidemia Morbid obesity with body mass index (BMI) of 40.0 to 49.9 Obstructive sleep apnea of adult Pulmonary embolism Schizoaffective disorder Tardive dyskinesia Surgical History Hx of CABG Family History Mother Coronary artery disease Father No problems noted. Social History marital status: unmarried,single details: lives with his parents household members: family lives independently: Yes caregiver/support person: Yes housing: house pets and animals: Yes Smoking Status: Former smoker alcohol intake: never substance use type: does not use Smoking Status: Former smoker alcohol intake frequency: 0-2 drinks per day Substance Use Type: does not use Exam Narrative Exam Narrative: GENERAL: [59] year old patient appears stated age. Well- nourished, well-developed patient, in mild distress. GCS 15 HEAD: Atraumatic. Normocephalic. No hematoma, abrasion or evidence of depressed skull fracture EYES: Pupils equal round and reactive. No hyphema Extraocular motions intact. No scleral icterus. No injection or drainage. ENT: Nose without bleeding, purulent drainage. No nasal septal hematoma or hemotympanum Throat without erythema, tonsillar hypertrophy or exudate. Airway patent. NECK: Trachea midline. No midline bony tenderness, no step-off, no crepitance, tenderness to palpate right paraspinal musculature CARDIOVASCULAR: Regular rate and rhythm without murmurs, gallops, or rubs. RESPIRATORY: Clear to auscultation. Breath sounds equal bilaterally. No wheezes, rales, or rhonchi. GASTROINTESTINAL: Abdomen soft, non-tender, nondistended. EXTREMITIES: Left knee with mild effusion, tender to palpate, no redness or obvious ligamentous instability. BACK: Nontender without deformity or crepitance. No flank tenderness. NEURO: AOx3. SKIN: No rash or erythema of visible areas Initial Vital Signs Initial Vital Signs: Vital Signs Temperature 98 F 04/07/20 11:15 Pulse Rate 65 04/07/20 11:15 Respiratory Rate 20 04/07/20 11:15 Blood Pressure 136/76 04/07/20 11:15 Pulse Oximetry 94 04/07/20 11:15 Course Orders Ordered: ED Orders 04/07/20 11:11 Complete Blood Count AUTO DIFF Stat 04/07/20 11:31 CT cervical spine wo con Stat CT chest abd pel w con Stat CT head/brain wo con Stat EKG-12 Lead Stat 04/07/20 11:40 Comprehensive Metabolic Panel Stat Ethanol (ETOH) Stat Lipase Stat Prothrombin Time INR Stat Troponin & CK Cardiac Panel Stat 04/07/20 12:52 XR knee LT 3V Stat 04/07/20 13:41 EKG-12 Lead Stat 04/07/20 14:33 Troponin I Stat Discontinued Medications Hydrocodone Bitart/Acetaminophen (Hydrocodone/Acet 5/325 Tablet) 1 tab PO NOW ONE Stop: 04/07/20 14:19 Last Admin: 04/07/20 14:25 Dose: 1 tab Documented by: BRIAN Hydrocodone Bitart/Acetaminophen (Hydrocodone/Acet 5/325 Prepack) 1 bottle MISC SEEINSTR ONE Stop: 04/07/20 15:37 Last Admin: 04/07/20 15:54 Dose: 1 bottle Documented by: BRIAN Sodium Chloride (Normal Saline 0.9%) 1,000 mls @ 150 mls/hr IV CONT JOSE L Last Admin: 04/07/20 12:23 Dose: 150 mls/hr Documented by: BRIAN Vital Signs Vital signs: Vital Signs - 8 hr 04/07/20 11:15 04/07/20 11:27 04/07/20 11:30 Temperature 98 F 98.0 F Pulse Rate 65 65 61 Respiratory Rate 20 20 23 Blood Pressure 136/76 136/76 Pulse Oximetry 94 94 94 04/07/20 11:57 04/07/20 12:00 04/07/20 12:30 Temperature Pulse Rate 58 L 58 L 57 L Respiratory Rate 25 H 20 16 Blood Pressure 130/63 136/67 146/70 H Pulse Oximetry 96 95 94 04/07/20 13:00 04/07/20 13:01 04/07/20 13:30 Temperature Pulse Rate 58 L 57 L 54 L Respiratory Rate 23 19 18 Blood Pressure 136/66 Pulse Oximetry 95 04/07/20 13:31 04/07/20 14:00 04/07/20 14:01 Temperature Pulse Rate 54 L 55 L 55 L Respiratory Rate 15 16 15 Blood Pressure 142/83 H 152/72 H Pulse Oximetry 95 95 95 04/07/20 14:30 04/07/20 14:31 04/07/20 15:00 Temperature Pulse Rate 55 L 55 L 55 L Respiratory Rate 18 18 14 Blood Pressure 144/68 H 140/74 Pulse Oximetry 95 96 96 MDM - Trauma Lab Data Result diagrams: 04/07/20 11:11 04/07/20 11:40 Labs: Lab Results 04/07/20 04/07/20 04/07/20 Range/Units 11:11 11:40 11:40 WBC 7.7 (4.5-11.0) X10^3/uL RBC 4.48 L (4.5-5.9) X10^6/uL Hgb 13.4 L (13.5-17.5) g/dL Hct 41.4 (41-53) % MCV 92.5 (80-100) fL MCH 29.9 (26-34) PG MCHC 32.3 (30-36) % RDW 14.8 (11.6-14.8) % Plt Count 158 (150-400) X10^3/uL Neut % (Auto) 56.8 (50-75) % Lymph % (Auto) 36.2 (25-40) % [place] % (Auto) 4.7 (3-14) % Eos % (Auto) 1.5 L (2-4) % Baso % (Auto) 0.8 (0-2) % Neut # (Auto) 4400 (2609-1616) /uL Lymph # (Auto) 2800 (4004-0536) /uL [place] # (Auto) 400 (0-900) /uL Eos # (Auto) 100 (0-450) /uL Baso # (Auto) 100 (0-100) /uL PT 11.3 (10.1-12.7) SECONDS INR 1.0 (0.9-1.3) Sodium (137-145) mmol/L Potassium (3.4-5.1) mmol/L Chloride (98-107) mmol/L Carbon Dioxide (22-32) mmol/L BUN (9-20) mg/dL Creatinine (0.66-1.25) mg/dL Estimated GFR (>60) mL/min BUN/Creatinine Ratio (6-22) Glucose (70-100) mg/dL Calcium (8.4-10.2) mg/dL Total Bilirubin (0.2-1.3) mg/dL AST (17-59) IU/L ALT (<50) IU/L Alkaline Phosphatase (38-126) U/L Total Creatine Kinase 114 (55-170) U/L CK-MB (CK-2) 1.36 (<2.37) ng/mL CK-MB (CK-2) Rel Index 1.2 L (1.5-5.0) % Troponin I < 0.012 (0.01-0.034) ng/mL Total Protein (6.3-8.2) g/dL Albumin (3.5-5.0) g/dL Globulin (1.7-4.1) g/dL Albumin/Globulin Ratio (1.0-2.8) Lipase (23-300) U/L Ethyl Alcohol ( - 10) mg/dL Blood Type Antibody Screen 04/07/20 04/07/20 04/07/20 Range/Units 11:40 11:40 14:33 WBC (4.5-11.0) X10^3/uL RBC (4.5-5.9) X10^6/uL Hgb (13.5-17.5) g/dL Hct (41-53) % MCV (80-100) fL MCH (26-34) PG MCHC (30-36) % RDW (11.6-14.8) % Plt Count (150-400) X10^3/uL Neut % (Auto) (50-75) % Lymph % (Auto) (25-40) % [place] % (Auto) (3-14) % Eos % (Auto) (2-4) % Baso % (Auto) (0-2) % Neut # (Auto) (6397-7907) /uL Lymph # (Auto) (6038-8232) /uL [place] # (Auto) (0-900) /uL Eos # (Auto) (0-450) /uL Baso # (Auto) (0-100) /uL PT (10.1-12.7) SECONDS INR (0.9-1.3) Sodium 138 (137-145) mmol/L Potassium 3.7 (3.4-5.1) mmol/L Chloride 102 (98-107) mmol/L Carbon Dioxide 29 (22-32) mmol/L BUN 24 H (9-20) mg/dL Creatinine 1.00 (0.66-1.25) mg/dL Estimated GFR > 60.0 (>60) mL/min BUN/Creatinine Ratio 24.0 H (6-22) Glucose 251 H (70-100) mg/dL Calcium 8.8 (8.4-10.2) mg/dL Total Bilirubin 0.1 L (0.2-1.3) mg/dL AST 24 (17-59) IU/L ALT 42 (<50) IU/L Alkaline Phosphatase 70 (38-126) U/L Total Creatine Kinase (55-170) U/L CK-MB (CK-2) (<2.37) ng/mL CK-MB (CK-2) Rel Index (1.5-5.0) % Troponin I < 0.012 (0.01-0.034) ng/mL Total Protein 6.4 (6.3-8.2) g/dL Albumin 3.6 (3.5-5.0) g/dL Globulin 2.8 (1.7-4.1) g/dL Albumin/Globulin Ratio 1.3 (1.0-2.8) Lipase 105 (23-300) U/L Ethyl Alcohol < 10 ( - 10) mg/dL Blood Type Cancelled Antibody Screen Cancelled Imaging Data CT scan - head: Radiologist's Impression: [address] [id number] Scan ReportSigned Patient: Luis E Pierre RMR#: [id number]: 1Acct:[id number]/Sex: 59 / MDate of Service: 04/07/20Loc: EDAccession Number: [id number] Procedure: CT head/brain wo con Ordering Provider: Gera Colindres D.O. PROCEDURE: CT HEAD/BRAIN WO CON INDICATIONS: Trauma TECHNIQUE: Noncontrast 4.5 mm thick angled axial sections acquired from the foramen magnum to the vertex, with coronal and sagittal reformats. For radiation dose reduction, the following was used: automated exposure control, adjustment of mA and/or kV according to patient size. COMPARISON: [facility], CT, CT HEAD/BRAIN WO CON, 03/25/2020, 3:40. FINDINGS: Image quality: Excellent. CSF spaces: Basal cisterns are patent. No extra-axial fluid collections. The ventricles are symmetric in size and shape. Brain: No intracranial bleeds or masses. There is cerebral volume loss for age, with resultant ventricular and sulcal prominence. There are periventricular and deep white matter chronic small vessel ischemic changes. There is intracranial internal carotid artery atherosclerosis. Skull and face: Calvarium and visualized facial bones appear intact, without suspicious lesions. Sinuses: Visualized sinuses and mastoids are clear. IMPRESSION: No acute intracranial findings. Dictated by: Ann Marie Hensley M.D. on 04/07/2020 at 11:05 Approved by: Ann Marie Hensley M.D. on 04/07/2020 at 11:07 CT - cervical spine: Radiologist's Impression: [address] [id number] Scan ReportSigned Patient: Luis E Pierre RMR#: [id number]: 1960cct:[id number]/Sex: 59 / MDate of Service: 04/07/20Loc: EDAccession Number: [id number] Procedure: CT cervical spine wo con Ordering Provider: Gera Colindres D.O. PROCEDURE: CT CERVICAL SPINE WO CON INDICATIONS: Trauma TECHNIQUE: Noncontrast 3 mm thick sections acquired from the skull base to the T4 level. Sagittal and coronal reformats were then constructed. For radiation dose reduction, the following was used: automated exposure control, adjustment of mA and/or kV according to patient size. COMPARISON: [facility], CT, CT CERVICAL SPINE WO CON, 03/25/2020, 3:40. FINDINGS: Image quality: Excellent. Bones: No fractures or dislocations. There is severe degenerative change throughout the cervical spine including osteophytosis, endplate sclerosis, and intervertebral disc space narrowing. There is loss of the expected cervical lordosis. Visualized superior ribs are intact. Soft tissues: Prevertebral soft tissues are normal in thickness. No paravertebral hematomas. No apical pneumothoraces. IMPRESSION: 1. No acute cervical spine injury. 2. 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 Dictated by: Ann Marie Hensley M.D. on 04/07/2020 at 11:11 Approved by: Ann Marie Hensley M.D. on 04/07/2020 at 11:13 [facility] Narrative Medical decision making narrative: 59-year-old male with trauma and very re assuring imaging demonstrated no traumatic injury as a consequence of his fall. Chronically injured knee shows no acute signs. Multiple causes of chest pain considered including KS, PE, pneumothorax, pneumonia, aortic dissection, and pleurisy. Patient reports no radiation, no diaphoresis, no provocation with exertion, and no vomiting. Multiple nonischemic EKGs, unchanged from prior. Two troponins by 3 hours unremarkable. Patient at his normal state of health upon discharge. Return precautions given, questions answered to his apparent satisfaction Discharge Plan Departure Patient Disposition: Home Clinical Impression: Fall Qualifiers: Encounter type: initial encounter Qualified Code(s): W19.XXXA - Unspecified fall, initial encounter Chest pain Qualifiers: Chest pain type: unspecified Qualified Code(s): R07.9 - Chest pain, unspecified Acute knee pain Qualifiers: Laterality: left Qualified Code(s): M25.562 - Pain in left knee Activity Restrictions/Additional Instructions: *You have been diagnosed with [chronic chest pain, fall with knee pain. Your blood work and CT scans are all very reassuring] *What to do: *Take medications as directed *Follow up with your primary care provider in 2-3 days, call for an appointment. Let them know you were seen in the Emergency Department and that we ask that you be seen in follow up *Return to ER if you should have any new, worsening or concerning symptoms Prescriptions: No Action lisinopril 10 mg tablet 40 mg PO DAILY RF: 0 gabapentin 300 mg capsule 600 mg PO TID RF: 0 insulin glargine 100 unit/mL (3 mL) insulin pen 35 unit Sub-Q BID RF: 0 lorazepam 1 mg tablet 1 mg PO DAILY PRN (Reason: agitation) Qty: 10 RF: 5 divalproex [Depakote ER] 500 mg tablet extended release 24 hr See Rx Instructions PO .COMPLEX Qty: 360 RF: 3 fenofibrate 160 mg tablet 160 mg PO DAILY RF: 0 lurasidone 60 mg tablet 60 mg PO QPM Qty: 30 RF: 1 oxycodone 5 mg tablet 5 mg PO Q8H PRNRF: 0 metformin [Glucophage XR] 500 MG tablet extended release 24 hr 500 mg PO BIDCC Qty: 60 RF: 0 nitroglycerin [Nitrostat] 0.4 mg Tablet, Sublingual 0.4 mg Sublingual Q5 MIN PRN PRN (Reason: Chest Pain) RF: 0 atorvastatin 40 mg Tablet 40 mg PO BEDTIME RF: 0 levothyroxine [Synthroid] 75 mcg Tablet 75 mcg PO DAILY RF: 0 insulin aspart U-100 100 unit/mL Insulin Pen See Rx Instructions .ROUTE .COMPLEX RF: 0 aspirin 81 mg Tablet,Delayed Release (Dr/Ec) 81 mg PO DAILY RF: 0 Xarelto 20 mg Tablet 20 mg PO QPM RF: 0 hydrochlorothiazide 25 mg Tablet 25 mg PO DAILY RF: 0 metoprolol succinate [Toprol XL] 25 MG tablet extended release 24 hr 25 mg PO DAILY RF: 0 omeprazole 20 mg Capsule,Delayed Release(Dr/Ec) 20 mg PO DAILY RF: 0 tamsulosin [Flomax] 0.4 mg capsule 0.4 mg PO BEDTIME Qty: 14 RF: 0 ergocalciferol (vitamin D2) 1,250 mcg (50,000 unit) capsule 1,250 mcg PO QWEEK RF: 0 Referrals: Sandra Garland MD [Primary Care Provider] -
[2020-04-07 12:20] LABS: CKMB % Relative Index 1.2 % (1.5-5.0); Creatine Kinase MB 1.36 ng/mL (<2.37)
[2020-04-07] MEDS: SODIUM CHLORIDE 0.9% 1,000 ML 150 ML IV (12:23)
--- NOTE | 2020-04-07 12:52 | DI.RAD.S_ITS ---
PROCEDURE: XR KNEE LT 3V INDICATIONS: knee pain after fall TECHNIQUE: 3 views of the knee were acquired. COMPARISON: [facility], CR, XR KNEE LT 3V, 12/06/2019, 2:52. [facility], CR, XR KNEE LT 3V, 03/25/2020, 3:43. FINDINGS: Bones: No fractures or dislocations. No suspicious bony lesions. Soft tissues: No joint effusion. No suspicious soft tissue calcifications. IMPRESSION: No fracture or dislocation visualized. If pain continues to persist, cross-sectional imaging with CT or MRI could be used to evaluate for soft tissue injury or occult fracture. Dictated by: Ann Marie Hensley M.D. on 04/07/2020 at 12:09 Approved by: Ann Marie Hensley M.D. on 04/07/2020 at 12:11
[2020-04-07] MEDS: HYDROCODONE/ACET 5/325 TABLET 1 TAB PO (14:25)
[2020-04-07 15:05] LABS: Troponin I < 0.012 ng/mL (0.01-0.034)
[2020-04-07] MEDS: HYDROCODONE/ACET 5/325 PREPACK 1 BOTTLE MISC (15:54)
== END 2020-04-07 15:56 | disposition home or self-care (01) ==
PROVIDERS: Emergency Provider Emergency Medicine; PCP Family Medicine
DX: R07.9 Chest pain, unspecified (principal); R42 Dizziness and giddiness; M25.562 Pain in left knee; Z79.01 Long term (current) use of anticoagulants; W19.XXXA Unspecified fall, initial encounter; S09.90XA Unspecified injury of head, initial encounter; E11.9 Type 2 diabetes mellitus without complications; Z79.4 Long term (current) use of insulin; I25.10 Atherosclerotic heart disease of native coronary artery without angina pectoris; I10 Essential (primary) hypertension; E78.5 Hyperlipidemia, unspecified; E66.01 Morbid (severe) obesity due to excess calories; Z68.41 Body mass index [BMI] 40.0-44.9, adult
CPT/HCPCS: 36415; 70450; 71260; 72125; 73562; 74177; 80053; 80320; 82550; 82553; 83690; 84484; 85025; 85610; 93005; 99284; Q9967

== ENCOUNTER 2020-04-17 23:25 | Emergency (ER) | payer OTHER, SELFPAY ==
[2019-07-13 01:30] VITALS: BMI 42.5
[2020-04-17 23:32] VITALS: BP 188/86; PULSE 76; RESP 20; TEMP 35.9; O2SAT 98
--- NOTE | 2020-04-18 00:22 | PC.NURSE ---
Patient left department. Rickey RN called patient and asked him to come back to ER for evaluation. Patient states I just didn't know what to do, so I left
--- NOTE | 2020-04-18 00:33 | ED_ITS ---
HPI - Psych <Tsering Fisher, DO - Last Filed: 04/22/20 07:37> General Chief Complaint: Psychiatric Symptoms Stated Complaint: Severe Left knee pain X1 day Time Seen by Provider: 04/17/20 23:50 Source: patient Mode of arrival: Ambulatory Limitations: no limitations History of Present Illness HPI Narrative: Patient is a 59-year-old male who has schizoaffective disorder diabetes coronary artery disease chronic ongoing left knee pain is presenting today with ongoing left knee pain. He states he went to the [facility] who refused to refill his pain medication because he did not take it correctly. Says that he is having ongoing left knee pain although he is ambulatory on it and afebrile. He also says he is feeling suicidal. Voices are telling him to jump out in front of a car because his knee pain is so bad. According to psychology records he has ongoing suicidal thoughts but does not appear that he has had planned. He is not complaining of chest pain at this time although he has had previous visits to the emergency department for chest pain. Patient was actually here and left before a mated in the room. Police were called and patient was called he picked up his phone and voluntarily returned back to the emergency department. MD complaint: suicidal ideation Duration: getting worse History of same: Yes Associated psychiatric symptoms: depression, suicidal ideation and auditory hallucinations Related Data Home Medications Medication Instructions Recorded Confirmed metformin [Glucophage XR] 500 mg PO BIDCC #60 tab 12/25/16 03/19/20 atorvastatin 40 mg PO BEDTIME 10/12/17 03/19/20 insulin aspart U-100 See Rx Instructions .ROUTE .COMPLEX 10/12/17 03/19/20 levothyroxine [Synthroid] 75 mcg PO DAILY 10/12/17 03/19/20 nitroglycerin [Nitrostat] 0.4 mg SUBLINGUAL Q5 MIN PRN PRN 10/12/17 03/19/20 hydrochlorothiazide 25 mg PO DAILY 05/26/18 03/19/20 metoprolol succinate [Toprol XL] 25 mg PO DAILY 05/26/18 03/19/20 fenofibrate 160 mg tablet 160 mg PO DAILY 12/16/18 03/19/20 omeprazole 20 mg PO DAILY 12/20/18 03/19/20 Xarelto 20 mg PO QPM 02/16/19 03/19/20 aspirin 81 mg PO DAILY 02/16/19 03/19/20 insulin glargine 100 unit/mL (3 35 unit SUB-Q BID ml 08/25/19 03/19/20 mL) subcutaneous pen lisinopril 10 mg tablet 40 mg PO DAILY 08/25/19 03/19/20 gabapentin 300 mg capsule 600 mg PO TID cap 11/29/19 03/19/20 ergocalciferol (vitamin D2) 1,250 1,250 mcg PO QWEEK 11/30/19 03/19/20 mcg (50,000 unit) capsule oxycodone 5 mg tablet 5 mg PO Q8H PRN 03/19/20 03/19/20 Previous Rx's Medication Instructions Recorded divalproex 500 mg tablet,extended See Rx Instructions PO .COMPLEX 02/06/20 release 24 hr #360 tab lorazepam 1 mg tablet 1 mg PO DAILY PRN #10 tab 02/06/20 lurasidone 60 mg tablet 60 mg PO QPM #30 tab 03/05/20 tamsulosin [Flomax] 0.4 mg PO BEDTIME #14 cap 03/23/20 Allergies Allergy/AdvReac Type Severity Reaction Status Date / Time Penicillins [PENICILLINS] Allergy Severe Swelling Verified 03/19/20 08:33 of Lip/Tongue/Throat quetiapine AdvReac Intermediate oversedation Verified 03/19/20 08:August Alluna Sleep AdvReac Severe Difficulty Uncoded 03/19/20 08:33 Swallowing Review of Systems <Tsering Fisher, - Last Filed: 04/22/20 07:37> Review of Systems ROS Unobtainable: All systems reviewed & are unremarkable except as noted in HPI and below Constitutional Constitutional: Denies chills, Denies fever(s), Denies lethargy and Denies weakness Eyes Eyes: Denies change in vision, Denies eye discharge, Denies irritation and Denies loss of vision ENT Ears, Nose, Mouth, and Throat: Denies change in voice, Denies neck pain and Denies sore throat Cardiovascular Cardiovascular: Denies chest pain, Denies irregular heart rhythm, Denies lightheadedness, Denies palpitations, Denies dyspnea, Denies dyspnea on exertion and Denies orthopnea Respiratory Respiratory: Denies cough, Denies dyspnea, Denies dyspnea on exertion and Denies wheezing Musculoskeletal Musculoskeletal: Reports as per HPI, Reports arthralgias, Reports joint swelling and Denies neck pain Integumentary/Breasts Skin/Breast: Denies pruritus, Denies erythema, Denies rash and Denies wounds Neurologic Neurologic: Denies loss of vision and Denies weakness Psychiatric Psychiatric: Reports as per HPI Endocrine Endocrine: Denies palpitations Allergic/Immunologic Allergic/Immunologic: Denies wheezing Patient History <Tsering Fisher DO - Last Filed: 04/22/20 07:37> Medical History (Updated 04/22/20 @ 00:00 by ) Acute hyperglycemia Atypical chest pain CAD (coronary artery disease) Chest pain, rule out acute myocardial infarction Chronic left shoulder pain Diabetes type 2, controlled HTN (hypertension) Hyperlipidemia Morbid obesity with body mass index (BMI) of 40.0 to 49.9 Obstructive sleep apnea of adult Pulmonary embolism Schizoaffective disorder Tardive dyskinesia Surgical History Hx of CABG Family History Mother Coronary artery disease Father No problems noted. Social History marital status: unmarried,single details: lives with his parents household members: family lives independently: Yes caregiver/support person: Yes housing: house pets and animals: Yes Smoking Status: Former smoker alcohol intake: never substance use type: does not use Smoking Status: Former smoker alcohol intake frequency: 0-2 drinks per day Substance Use Type: does not use Exam <DO Rosy Bullard Last Filed: 04/22/20 07:37> Initial Vital Signs Initial Vital Signs: Vital Signs Temperature 96.7 F L 04/17/20 23:32 Pulse Rate 76 04/17/20 23:32 Respiratory Rate 20 04/17/20 23:32 Blood Pressure 188/86 H 04/17/20 23:32 Pulse Oximetry 98 04/17/20 23:32 GENERAL: Flat affect good eye contact and in no acute distress. HEENT: Head atraumatic,EOMI, pupils reactive, face symmetric, moist mucous membranes CARDIOVASCULAR: Regular rate and rhythm without murmurs, rubs or gallops. RESPIRATORY: Breath sounds equal bilaterally, no wheezes rales or rhonchi. EXTREMITIES: Normal range of motion, no clubbing or edema. Neurovascularly intact Left lower extremity mild left knee swelling no erythema ambulatory stable NEUROLOGICAL: Alert and oriented x4.Normal gait and speech. SKIN: Warm, dry, no laceration, no petechiae, no rashes or lesions. <Shayy Tubbs MD - Last Filed: 04/19/20 19:55> Initial Vital Signs Initial Vital Signs: Vital Signs Temperature 96.7 F L 04/17/20 23:32 Pulse Rate 76 04/17/20 23:32 Respiratory Rate 20 04/17/20 23:32 Blood Pressure 188/86 H 04/17/20 23:32 Pulse Oximetry 98 04/17/20 23:32 <Gera Colindres DO - Last Filed: 04/20/20 01:25> Initial Vital Signs Initial Vital Signs: Vital Signs Temperature 96.7 F L 04/17/20 23:32 Pulse Rate 76 04/17/20 23:32 Respiratory Rate 20 04/17/20 23:32 Blood Pressure 188/86 H 04/17/20 23:32 Pulse Oximetry 98 04/17/20 23:32 <Shayy Tubbs MD - Last Filed: 04/19/20 19:55> [facility] [place] Procedure Name of Procedure: Left knee injection Side (if applicable): left Location: Medial aspect left knee Technique/Description of procedure performed: Sterile touch technique Patient tolerated procedure: Well and No complications Complications: none Additional Comments: For his chronic and recurrent left knee pain 40 mg of Kenalog and 2 cc of 0.5% bupivacaine without epinephrine is injected into the medial compartment of the left knee without any complications. Course <Tsering Fisher DO - Last Filed: 04/22/20 07:37> Orders Ordered: Discontinued Medications Acetaminophen (Acetaminophen 325 Mg Tablet) 325 mg PO Q6HR PRN PRN Reason: Fever/Mild Pain (1-3) Last Admin: 04/19/20 17:07 Dose: 325 mg Documented by: Admin: 04/19/20 12:23 Dose: 325 mg Documented by: Admin: 04/18/20 21:45 Dose: 325 mg Documented by: Admin: 04/18/20 15:25 Dose: 325 mg Documented by: BTONER Hydrocodone Bitart/Acetaminophen (Hydrocodone/Acet 5/325 Tablet) 2 tab PO NOW ONE Stop: 04/18/20 01:56 Last Admin: 04/18/20 03:21 Dose: 2 tab Documented by: PRADEEP Aspirin (Aspirin Ec 81 Mg Tablet) 81 mg PO DAILY [facility] Last Admin: 04/19/20 08:58 Dose: 81 mg Documented by: Admin: 04/18/20 10:04 Dose: 81 mg Documented by: MEGAN Atorvastatin Calcium (Atorvastatin 20 Mg Tablet) 40 mg PO BEDTIME [facility] Last Admin: 04/18/20 20:51 Dose: 40 mg Documented by: LOGAN Benztropine Mesylate (Benztropine 1 Mg Tablet) 0.5 mg PO BID [facility] Last Admin: 04/19/20 14:06 Dose: Not Given Documented by: Admin: 04/18/20 20:51 Dose: 0.5 mg Documented by: Admin: 04/18/20 09:25 Dose: 0.5 mg Documented by: MEGAN Bupivacaine HCl (Bupivacaine 0.5% (Pf) Vial) 5 ml SUBCUT NOW ONE Stop: 04/19/20 00:16 Last Admin: 04/19/20 09:08 Dose: 5 ml Documented by: JOE Divalproex Sodium (Divalproex Er 250 Mg Tab) 500 mg PO DAILY [facility] Last Admin: 04/19/20 09:00 Dose: 500 mg Documented by: Admin: 04/18/20 09:25 Dose: 500 mg Documented by: MEGAN Divalproex Sodium (Divalproex Er 250 Mg Tab) 1,500 mg PO BEDTIME [facility] Last Admin: 04/18/20 20:50 Dose: 1,500 mg Documented by: LOGAN Fenofibrate (Fenofibrate 48 Mg Tablet) 160 mg PO DAILY [facility] Fenofibrate (Fenofibrate 160 Mg Tablet) 160 mg PO DAILY [facility] Last Admin: 04/19/20 08:59 Dose: 160 mg Documented by: Admin: 04/18/20 09:25 Dose: 160 mg Documented by: MEGAN Gabapentin (Gabapentin 600 Mg Tablet) 600 mg PO TID [facility] Last Admin: 04/19/20 16:59 Dose: 600 mg Documented by: Admin: 04/19/20 09:01 Dose: 600 mg Documented by: Admin: 04/18/20 20:51 Dose: 600 mg Documented by: Admin: 04/18/20 16:12 Dose: 600 mg Documented by: Admin: 04/18/20 09:24 Dose: 600 mg Documented by: MEGAN Hydrochlorothiazide (Hydrochlorothiazide 25 Mg Tablet) 25 mg PO DAILY [facility] Last Admin: 04/19/20 09:01 Dose: 25 mg Documented by: Admin: 04/18/20 09:23 Dose: 25 mg Documented by: MEGAN Hydromorphone HCl (Hydromorphone 2 Mg Inj) 1 mg SUBCUT NOW ONE Stop: 04/18/20 00:35 Last Admin: 04/18/20 00:39 Dose: 1 mg Documented by: MARK Ibuprofen (Ibuprofen 400 Mg Tablet) 400 mg PO Q6HR PRN PRN Reason: Pain, Mild (1-3) Last Admin: 04/19/20 17:07 Dose: 400 mg Documented by: Admin: 04/19/20 12:23 Dose: 400 mg Documented by: Admin: 04/18/20 21:45 Dose: 400 mg Documented by: Admin: 04/18/20 15:25 Dose: 400 mg Documented by: MEGAN Insulin Aspart (Insulin Aspart 100 Unit/Ml Insuln Pen) 20 unit SUBCUT QACBREAK [facility] Last Admin: 04/19/20 09:02 Dose: 20 unit Documented by: JOE Cosigned by: LORI Admin: 04/18/20 09:57 Dose: 20 unit Documented by: MEGAN Lozanoigned by: LANE Insulin Aspart (Insulin Aspart 100 Unit/Ml Insuln Pen) 25 unit SUBCUT QACLUNCH [facility] Last Admin: 04/19/20 12:25 Dose: 25 unit Documented by: MINERVA Cosigned by: CHARU Admin: 04/18/20 16:05 Dose: Not Given Documented by: MINERVA Insulin Aspart (Insulin Aspart 100 Unit/Ml Insuln Pen) 30 unit SUBCUT QACDINNER [facility] Last Admin: 04/19/20 17:00 Dose: 30 unit Documented by: ZULEIMA Cosigned by: LORI Admin: 04/18/20 17:23 Dose: 30 unit Documented by: RSTONE Cosigned by: CHARU Insulin Glargine (Insulin Glargine 100 Unit/Ml 3ml Pen) 35 unit SUBCUT DAILY [facility] Last Admin: 04/19/20 09:03 Dose: 35 unit Documented by: JOE Cosigned by: LORI Admin: 04/18/20 10:00 Dose: 35 unit Documented by: MEGAN Cosigned by: LANE Insulin Glargine (Insulin Glargine 100 Unit/Ml 3ml Pen) 30 unit SUBCUT BEDTIME [facility] Last Admin: 04/19/20 06:01 Dose: Not Given Documented by: LOGAN Levothyroxine Sodium (Levothyroxine 75 Mcg Tablet) 75 mcg PO DAILY@0600 [facility] Last Admin: 04/19/20 09:01 Dose: 75 mcg Documented by: Admin: 04/18/20 09:32 Dose: 75 mcg Documented by: MEGAN Lisinopril (Lisinopril 20 Mg Tablet) 40 mg PO DAILY [facility] Last Admin: 04/19/20 09:00 Dose: 40 mg Documented by: Admin: 04/18/20 09:21 Dose: 40 mg Documented by: MEGAN Metformin HCl (Metformin Hcl 500 Mg Tablet) 500 mg PO 0800,1700 [facility] Last Admin: 04/19/20 17:06 Dose: 500 mg Documented by: Admin: 04/19/20 08:59 Dose: 500 mg Documented by: Admin: 04/18/20 17:28 Dose: 500 mg Documented by: Admin: 04/18/20 09:30 Dose: 500 mg Documented by: MEGAN Metoprolol Succinate (Metoprolol Er 25 Mg Tablet) 25 mg PO DAILY [facility] Last Admin: 04/19/20 08:59 Dose: 25 mg Documented by: Admin: 04/18/20 09:26 Dose: 25 mg Documented by: MEGAN Olanzapine (Olanzapine Odt 10 Mg Tab) 10 mg PO BEDTIME [facility] Last Admin: 04/19/20 06:01 Dose: Not Given Documented by: LOGAN Olanzapine (Olanzapine 2.5 Mg Tablet) 5 mg PO DAILY [facility] Last Admin: 04/19/20 09:07 Dose: 5 mg Documented by: JOE Pantoprazole Sodium (Pantoprazole 20 Mg Tablet) 20 mg PO DAILY@0700 [facility] Last Admin: 04/19/20 12:22 Dose: 20 mg Documented by: Admin: 04/18/20 10:34 Dose: 20 mg Documented by: MEGAN Rivaroxaban (Rivaroxaban 10 Mg Tablet) 20 mg PO BIDWM [facility] Last Admin: 04/19/20 17:07 Dose: 20 mg Documented by: Admin: 04/19/20 08:59 Dose: 20 mg Documented by: Admin: 04/18/20 17:29 Dose: 20 mg Documented by: Admin: 04/18/20 10:04 Dose: 20 mg Documented by: MEGAN Triamcinolone (Triamcinolone 40 Mg/Ml Vial) 40 mg IM NOW ONE Stop: 04/19/20 09:01 Last Admin: 04/19/20 09:07 Dose: 40 mg Documented by: JOE Vital Signs Vital signs: Vital Signs - 8 hr 04/19/20 20:03 Pulse Rate 67 Respiratory Rate 20 Blood Pressure 140/63 Pulse Oximetry 95 <Shayy Tubbs MD - Last Filed: 04/19/20 19:55> Course Course Narrative: Care is assumed this morning. Patient is independently examined. 59-year-old gentleman history of schizoaffective disorder depressive type followed by Dr. Jovel as well as cardiac disease, diabetes, chronic left knee pain that had been treated with chronic opioids by the [facility] however he has been overusing his opioids and was reportedly discharged from the pain clinic. He comes in to the emergency room last night complaining of severe knee pain which is exacerbating his audio hallucinations and he is beginning to have command hallucinations telling him to kill himself by taking all of his pills. This did happen approximately 8 years ago with a suicide attempt at that time and hospitalization. He is requesting narcotics for his knee pain and feels that he is unsafe to go home and would like to be hospitalized to help the voices quiet. 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 He does recognize that may be an inconvenience for him to be gone for a period of time however he feels that the voices are loud enough and intrusive enough at this point that he would like to be hospitalized. Blood work was obtained last night and was entirely unremarkable. He was given narcotic pain medication to help with his knee pain and he slept most of the evening. This morning he states that the voices are just is loud and he is requesting more narcotics. 9am there is an inpatient voluntary bed at [facility] available for this gentleman however he needs a social work evaluation prior to acceptance. All of his routine medications are ordered to be scheduled, COVID testing and EKG is done to facilitate admission to inpatient psychiatric care. 1050 [facility] phone call. Talked with Dr Jovel's office (psychiatrist), her partner Dr Will will come to talk with patient in the ER shortly. Continuing to move forward with inpt bed at [facility]. [facility]: will not take patient due to prolonged QTc and concerns that he will leave when not offered narcotics. If patient has continued to complain of pain not treated with Tylenol and ibuprofen there required to transfer them to [facility]. Will await Dr. Will's involvement in consultation. [address] Dr Will. Discussed increased home stressors as trigger for increased smith llucinations. Remains consistently suicidal and will not contract for safety. recommended Zyprexa/olanzapine 10mg as substitute for lurasidone while in the ER. Will continue to look for psychiatric hospitalization with associated medical consultation immediatley available. Will review with [facility] to continue searching for bed availalbility. She will contact [facility] to see if there is voluntary bed availablity. May need to board all night in ER until she is available again to work on this in the [facility]. 04/19/[address] Jovel evaluated the patient in the department this morning. Continues to have loud command hallucinations and she believes that hospitalization is appropriate. Will contact [facility]. Patient is still complaining of knee pain will plan on steroid and bupivacaine injection. Dr. Jovel suggests adding 5 mg of olanzapine in the morning as well. Will add that now 1400 intra-articular left knee injection to try to help with pain with done. Patient did seem to have some immediate relief. Still waiting to hear from [facility] regarding bed availability, reports continued to be ?file is being reviewed?. 1840 same doses declined admission. [place] currently has no beds. Patient would prefer to go home this evening. He has had a long discussion with our social professionals. Message was left for Dr. Jovel. [address] Jovel in with the patient, we are going to plan for home discharge. He seems to be back to his baseline level of psychosis, pain is somewhat better controlled in his knee after the injection earlier today. He clearly states that he will not kill himself and that if he thinks that he should he can call the crisis line and knows the number for the crisis line. Dr. Jovel will contact him on Wednesday to set up outpatient psychiatric follow-up. Will reassure him that he is welcome in the emergency rooms should his voices become more commanding over the course of the weekend. Will ask him to continue with all of his usual medications. Will consider him safe for home discharge at this time. Orders Ordered: Discontinued Medications Acetaminophen (Acetaminophen 325 Mg Tablet) 325 mg PO Q6HR PRN PRN Reason: Fever/Mild Pain (1-3) Last Admin: 04/19/20 17:07 Dose: 325 mg Documented by: Admin: 04/19/20 12:23 Dose: 325 mg Documented by: Admin: 04/18/20 21:45 Dose: 325 mg Documented by: Admin: 04/18/20 15:25 Dose: 325 mg Documented by: MEGAN Hydrocodone Bitart/Acetaminophen (Hydrocodone/Acet 5/325 Tablet) 2 tab PO NOW ONE Stop: 04/18/20 01:56 Last Admin: 04/18/20 03:21 Dose: 2 tab Documented by: PRADEEP Aspirin (Aspirin Ec 81 Mg Tablet) 81 mg PO DAILY [facility] Last Admin: 04/19/20 08:58 Dose: 81 mg Documented by: Admin: 04/18/20 10:04 Dose: 81 mg Documented by: MEGAN Atorvastatin Calcium (Atorvastatin 20 Mg Tablet) 40 mg PO BEDTIME [facility] Last Admin: 04/18/20 20:51 Dose: 40 mg Documented by: LOGAN Benztropine Mesylate (Benztropine 1 Mg Tablet) 0.5 mg PO BID [facility] Last Admin: 04/19/20 14:06 Dose: Not Given Documented by: Admin: 04/18/20 20:51 Dose: 0.5 mg Documented by: Admin: 04/18/20 09:25 Dose: 0.5 mg Documented by: MEGAN Bupivacaine HCl (Bupivacaine 0.5% (Pf) Vial) 5 ml SUBCUT NOW ONE Stop: 04/19/20 00:16 Last Admin: 04/19/20 09:08 Dose: 5 ml Documented by: JOE Divalproex Sodium (Divalproex Er 250 Mg Tab) 500 mg PO DAILY [facility] Last Admin: 04/19/20 09:00 Dose: 500 mg Documented by: Admin: 04/18/20 09:25 Dose: 500 mg Documented by: MEGAN Divalproex Sodium (Divalproex Er 250 Mg Tab) 1,500 mg PO BEDTIME [facility] Last Admin: 04/18/20 20:50 Dose: 1,500 mg Documented by: LOGAN Fenofibrate (Fenofibrate 48 Mg Tablet) 160 mg PO DAILY [facility] Fenofibrate (Fenofibrate 160 Mg Tablet) 160 mg PO DAILY [facility] Last Admin: 04/19/20 08:59 Dose: 160 mg Documented by: Admin: 04/18/20 09:25 Dose: 160 mg Documented by: MEGAN Gabapentin (Gabapentin 600 Mg Tablet) 600 mg PO TID [facility] Last Admin: 04/19/20 16:59 Dose: 600 mg Documented by: Admin: 04/19/20 09:01 Dose: 600 mg Documented by: Admin: 04/18/20 20:51 Dose: 600 mg Documented by: Admin: 04/18/20 16:12 Dose: 600 mg Documented by: Admin: 04/18/20 09:24 Dose: 600 mg Documented by: MEGAN Hydrochlorothiazide (Hydrochlorothiazide 25 Mg Tablet) 25 mg PO DAILY [facility] Last Admin: 04/19/20 09:01 Dose: 25 mg Documented by: Admin: 04/18/20 09:23 Dose: 25 mg Documented by: MEGAN Hydromorphone HCl (Hydromorphone 2 Mg Inj) 1 mg SUBCUT NOW ONE Stop: 04/18/20 00:35 Last Admin: 04/18/20 00:39 Dose: 1 mg Documented by: MARK Ibuprofen (Ibuprofen 400 Mg Tablet) 400 mg PO Q6HR PRN PRN Reason: Pain, Mild (1-3) Last Admin: 04/19/20 17:07 Dose: 400 mg Documented by: Admin: 04/19/20 12:23 Dose: 400 mg Documented by: Admin: 04/18/20 21:45 Dose: 400 mg Documented by: Admin: 04/18/20 15:25 Dose: 400 mg Documented by: MEGAN Insulin Aspart (Insulin Aspart 100 Unit/Ml Insuln Pen) 20 unit SUBCUT QACBREAK [facility] Last Admin: 04/19/20 09:02 Dose: 20 unit Documented by: JOE Cosigned by: LORI Admin: 04/18/20 09:57 Dose: 20 unit Documented by: MEGAN Cosigned by: LANE Insulin Aspart (Insulin Aspart 100 Unit/Ml Insuln Pen) 25 unit SUBCUT QACLUNCH [facility] Last Admin: 04/19/20 12:25 Dose: 25 unit Documented by: MINERVA Cosigned by: CHARU Admin: 04/18/20 16:05 Dose: Not Given Documented by: MINERVA Insulin Aspart (Insulin Aspart 100 Unit/Ml Insuln Pen) 30 unit SUBCUT QACDINNER [facility] Last Admin: 04/19/20 17:00 Dose: 30 unit Documented by: ZULEIMA Cosigned by: LORI Admin: 04/18/20 17:23 Dose: 30 unit Documented by: MINERVA Cosigned by: CHARU Insulin Glargine (Insulin Glargine 100 Unit/Ml 3ml Pen) 35 unit SUBCUT DAILY [facility] Last Admin: 04/19/20 09:03 Dose: 35 unit Documented by: JOE Cosigned by: LORI Admin: 04/18/20 10:00 Dose: 35 unit Documented by: MEGAN Cosigned by: LANE Insulin Glargine (Insulin Glargine 100 Unit/Ml 3ml Pen) 30 unit SUBCUT BEDTIME [facility] Last Admin: 04/19/20 06:01 Dose: Not Given Documented by: LOGAN Levothyroxine Sodium (Levothyroxine 75 Mcg Tablet) 75 mcg PO DAILY@0600 [facility] Last Admin: 04/19/20 09:01 Dose: 75 mcg Documented by: Admin: 04/18/20 09:32 Dose: 75 mcg Documented by: MEGAN Lisinopril (Lisinopril 20 Mg Tablet) 40 mg PO DAILY [facility] Last Admin: 04/19/20 09:00 Dose: 40 mg Documented by: Admin: 04/18/20 09:21 Dose: 40 mg Documented by: MEGAN Metformin HCl (Metformin Hcl 500 Mg Tablet) 500 mg PO 0800,1700 [facility] Last Admin: 04/19/20 17:06 Dose: 500 mg Documented by: Admin: 04/19/20 08:59 Dose: 500 mg Documented by: Admin: 04/18/20 17:28 Dose: 500 mg Documented by: Admin: 04/18/20 09:30 Dose: 500 mg Documented by: MEGAN Metoprolol Succinate (Metoprolol Er 25 Mg Tablet) 25 mg PO DAILY [facility] Last Admin: 04/19/20 08:59 Dose: 25 mg Documented by: Admin: 04/18/20 09:26 Dose: 25 mg Documented by: MEGAN Olanzapine (Olanzapine Odt 10 Mg Tab) 10 mg PO BEDTIME [facility] Last Admin: 04/19/20 06:01 Dose: Not Given Documented by: LOGAN Olanzapine (Olanzapine 2.5 Mg Tablet) 5 mg PO DAILY [facility] Last Admin: 04/19/20 09:07 Dose: 5 mg Documented by: JOE Pantoprazole Sodium (Pantoprazole 20 Mg Tablet) 20 mg PO DAILY@0700 [facility] Last Admin: 04/19/20 12:22 Dose: 20 mg Documented by: Admin: 04/18/20 10:34 Dose: 20 mg Documented by: MEGAN Rivaroxaban (Rivaroxaban 10 Mg Tablet) 20 mg PO BIDWM [facility] Last Admin: 04/19/20 17:07 Dose: 20 mg Documented by: Admin: 04/19/20 08:59 Dose: 20 mg Documented by: Admin: 04/18/20 17:29 Dose: 20 mg Documented by: Admin: 04/18/20 10:04 Dose: 20 mg Documented by: MEGAN Triamcinolone (Triamcinolone 40 Mg/Ml Vial) 40 mg IM NOW ONE Stop: 04/19/20 09:01 Last Admin: 04/19/20 09:07 Dose: 40 mg Documented by: JOE Vital Signs Vital signs: Vital Signs - 8 hr 04/19/20 20:03 Pulse Rate 67 Respiratory Rate 20 Blood Pressure 140/63 Pulse Oximetry 95 <Gera Colindres, DO - Last Filed: 04/20/20 01:25> Course Course Narrative: Patient received in sign-out from Dr. Tubbs. I performed an independent history and physical. Patient is in agreement with the plan in rest comfortably for much of the night. At 1 point he did become a bit uncomfortable and was threatening to leave but once we got him a real hospital but he change his mind quickly. He also requested another ?pain shot in his knee ?, I have performed joint injections on him in the past. I did attempt this procedure, however he was asleep and I chose not to wake him Orders Ordered: Discontinued Medications Acetaminophen (Acetaminophen 325 Mg Tablet) 325 mg PO Q6HR PRN PRN Reason: Fever/Mild Pain (1-3) Last Admin: 04/19/20 17:07 Dose: 325 mg Documented by: Admin: 04/19/20 12:23 Dose: 325 mg Documented by: Admin: 04/18/20 21:45 Dose: 325 mg Documented by: Admin: 04/18/20 15:25 Dose: 325 mg Documented by: MEGAN Hydrocodone Bitart/Acetaminophen (Hydrocodone/Acet 5/325 Tablet) 2 tab PO NOW ONE Stop: 04/18/20 01:56 Last Admin: 04/18/20 03:21 Dose: 2 tab Documented by: PRADEEP Aspirin (Aspirin Ec 81 Mg Tablet) 81 mg PO DAILY [facility] Last Admin: 04/19/20 08:58 Dose: 81 mg Documented by: Admin: 04/18/20 10:04 Dose: 81 mg Documented by: MEGAN Atorvastatin Calcium (Atorvastatin 20 Mg Tablet) 40 mg PO BEDTIME [facility] Last Admin: 04/18/20 20:51 Dose: 40 mg Documented by: LOGAN Benztropine Mesylate (Benztropine 1 Mg Tablet) 0.5 mg PO BID [facility] Last Admin: 04/19/20 14:06 Dose: Not Given Documented by: Admin: 04/18/20 20:51 Dose: 0.5 mg Documented by: Admin: 04/18/20 09:25 Dose: 0.5 mg Documented by: MEGAN Bupivacaine HCl (Bupivacaine 0.5% (Pf) Vial) 5 ml SUBCUT NOW ONE Stop: 04/19/20 00:16 Last Admin: 04/19/20 09:08 Dose: 5 ml Documented by: JOE Divalproex Sodium (Divalproex Er 250 Mg Tab) 500 mg PO DAILY [facility] Last Admin: 04/19/20 09:00 Dose: 500 mg Documented by: Admin: 04/18/20 09:25 Dose: 500 mg Documented by: MEGAN Divalproex Sodium (Divalproex Er 250 Mg Tab) 1,500 mg PO BEDTIME [facility] Last Admin: 04/18/20 20:50 Dose: 1,500 mg Documented by: LOGAN Fenofibrate (Fenofibrate 48 Mg Tablet) 160 mg PO DAILY [facility] Fenofibrate (Fenofibrate 160 Mg Tablet) 160 mg PO DAILY [facility] Last Admin: 04/19/20 08:59 Dose: 160 mg Documented by: Admin: 04/18/20 09:25 Dose: 160 mg Documented by: MEGAN Gabapentin (Gabapentin 600 Mg Tablet) 600 mg PO TID [facility] Last Admin: 04/19/20 16:59 Dose: 600 mg Documented by: Admin: 04/19/20 09:01 Dose: 600 mg Documented by: Admin: 04/18/20 20:51 Dose: 600 mg Documented by: Admin: 04/18/20 16:12 Dose: 600 mg Documented by: Admin: 04/18/20 09:24 Dose: 600 mg Documented by: MEGAN Hydrochlorothiazide (Hydrochlorothiazide 25 Mg Tablet) 25 mg PO DAILY [facility] Last Admin: 04/19/20 09:01 Dose: 25 mg Documented by: Admin: 04/18/20 09:23 Dose: 25 mg Documented by: MEGAN Hydromorphone HCl (Hydromorphone 2 Mg Inj) 1 mg SUBCUT NOW ONE Stop: 04/18/20 00:35 Last Admin: 04/18/20 00:39 Dose: 1 mg Documented by: MARK Ibuprofen (Ibuprofen 400 Mg Tablet) 400 mg PO Q6HR PRN PRN Reason: Pain, Mild (1-3) Last Admin: 04/19/20 17:07 Dose: 400 mg Documented by: Admin: 04/19/20 12:23 Dose: 400 mg Documented by: Admin: 04/18/20 21:45 Dose: 400 mg Documented by: Admin: 04/18/20 15:25 Dose: 400 mg Documented by: MEGAN Insulin Aspart (Insulin Aspart 100 Unit/Ml Insuln Pen) 20 unit SUBCUT QACBREAK [facility] Last Admin: 04/19/20 09:02 Dose: 20 unit Documented by: JOE Cosigned by: LORI Admin: 04/18/20 09:57 Dose: 20 unit Documented by: MEGAN Cosigned by: LANE Insulin Aspart (Insulin Aspart 100 Unit/Ml Insuln Pen) 25 unit SUBCUT QACLUNCH [facility] Last Admin: 04/19/20 12:25 Dose: 25 unit Documented by: MINERVA Cosigned by: CHARU Admin: 04/18/20 16:05 Dose: Not Given Documented by: MINERVA Insulin Aspart (Insulin Aspart 100 Unit/Ml Insuln Pen) 30 unit SUBCUT QACDINNER [facility] Last Admin: 04/19/20 17:00 Dose: 30 unit Documented by: ZULEIMA Cosigned by: LORI Admin: 04/18/20 17:23 Dose: 30 unit Documented by: MINERVA Cosigned by: CHARU Insulin Glargine (Insulin Glargine 100 Unit/Ml 3ml Pen) 35 unit SUBCUT DAILY [facility] Last Admin: 04/19/20 09:03 Dose: 35 unit Documented by: JOE Cosigned by: LORI Admin: 04/18/20 10:00 Dose: 35 unit Documented by: MEGAN Cosigned by: LANE Insulin Glargine (Insulin Glargine 100 Unit/Ml 3ml Pen) 30 unit SUBCUT BEDTIME [facility] Last Admin: 04/19/20 06:01 Dose: Not Given Documented by: LOGAN Levothyroxine Sodium (Levothyroxine 75 Mcg Tablet) 75 mcg PO DAILY@0600 [facility] Last Admin: 04/19/20 09:01 Dose: 75 mcg Documented by: Admin: 04/18/20 09:32 Dose: 75 mcg Documented by: MEGAN Lisinopril (Lisinopril 20 Mg Tablet) 40 mg PO DAILY [facility] Last Admin: 04/19/20 09:00 Dose: 40 mg Documented by: Admin: 04/18/20 09:21 Dose: 40 mg Documented by: MEGAN Metformin HCl (Metformin Hcl 500 Mg Tablet) 500 mg PO 0800,1700 [facility] Last Admin: 04/19/20 17:06 Dose: 500 mg Documented by: Admin: 04/19/20 08:59 Dose: 500 mg Documented by: Admin: 04/18/20 17:28 Dose: 500 mg Documented by: Admin: 04/18/20 09:30 Dose: 500 mg Documented by: MEGAN Metoprolol Succinate (Metoprolol Er 25 Mg Tablet) 25 mg PO DAILY [facility] Last Admin: 04/19/20 08:59 Dose: 25 mg Documented by: Admin: 04/18/20 09:26 Dose: 25 mg Documented by: MEGAN Olanzapine (Olanzapine Odt 10 Mg Tab) 10 mg PO BEDTIME [facility] Last Admin: 04/19/20 06:01 Dose: Not Given Documented by: LOGAN Olanzapine (Olanzapine 2.5 Mg Tablet) 5 mg PO DAILY [facility] Last Admin: 04/19/20 09:07 Dose: 5 mg Documented by: JOE Pantoprazole Sodium (Pantoprazole 20 Mg Tablet) 20 mg PO DAILY@0700 [facility] Last Admin: 04/19/20 12:22 Dose: 20 mg Documented by: Admin: 04/18/20 10:34 Dose: 20 mg Documented by: MEGAN Rivaroxaban (Rivaroxaban 10 Mg Tablet) 20 mg PO BIDWM [facility] Last Admin: 04/19/20 17:07 Dose: 20 mg Documented by: Admin: 04/19/20 08:59 Dose: 20 mg Documented by: Admin: 04/18/20 17:29 Dose: 20 mg Documented by: Admin: 04/18/20 10:04 Dose: 20 mg Documented by: MEGAN Triamcinolone (Triamcinolone 40 Mg/Ml Vial) 40 mg IM NOW ONE Stop: 04/19/20 09:01 Last Admin: 04/19/20 09:07 Dose: 40 mg Documented by: JOE Vital Signs Vital signs: Vital Signs - 8 hr 04/19/20 20:03 Pulse Rate 67 Respiratory Rate 20 Blood Pressure 140/63 Pulse Oximetry 95 MDM - Psych <Tsering Phillip DO - Last Filed: 04/22/20 07:37> Lab Data Attestation: I reviewed the patient's lab results. Result diagrams: 04/18/20 00:50 04/18/20 00:50 Labs: Lab Results 04/18/20 04/18/20 04/18/20 Range/Units 00:50 00:50 00:50 WBC 5.8 (4.5-11.0) X10^3/uL RBC 4.16 L (4.5-5.9) X10^6/uL Hgb 12.3 L (13.5-17.5) g/dL Hct 37.6 L (41-53) % MCV 90.5 (80-100) fL MCH 29.5 (26-34) PG MCHC 32.6 (30-36) % RDW 14.9 H (11.6-14.8) % Plt Count 167 (150-400) X10^3/uL Neut % (Auto) 59.2 (50-75) % Lymph % (Auto) 28.8 (25-40) % [place] % (Auto) 10.0 (3-14) % Eos % (Auto) 1.3 L (2-4) % Baso % (Auto) 0.7 (0-2) % Neut # (Auto) 3400 (7983-7161) /uL Lymph # (Auto) 1700 (8829-8749) /uL [place] # (Auto) 600 (0-900) /uL Eos # (Auto) 100 (0-450) /uL Baso # (Auto) 0 (0-100) /uL Sodium 138 (137-145) mmol/L Potassium 3.9 (3.4-5.1) mmol/L Chloride 105 (98-107) mmol/L Carbon Dioxide 30 (22-32) mmol/L BUN 16 (9-20) mg/dL Creatinine 0.91 (0.66-1.25) mg/dL Estimated GFR > 60.0 (>60) mL/min BUN/Creatinine Ratio 17.6 (6-22) Glucose 151 H (70-100) mg/dL Calcium 8.7 (8.4-10.2) mg/dL Magnesium (1.6-2.3) mg/dL Total Bilirubin 0.1 L (0.2-1.3) mg/dL AST 26 (17-59) IU/L ALT 23 (<50) IU/L Alkaline Phosphatase 68 (38-126) U/L Total Protein 6.3 (6.3-8.2) g/dL Albumin 3.6 (3.5-5.0) g/dL Globulin 2.7 (1.7-4.1) g/dL Albumin/Globulin Ratio 1.3 (1.0-2.8) TSH 4.68 (0.47-4.68) uIU/mL U Opiates 300ng/mL cut (Negative) Ur Oxycodone Screen (Negative) Urine Methadone Screen (Negative) Ur Barbiturates Screen (Negative) U Tricyclic Antidepress (Negative) Ur Phencyclidine Scrn (Negative) Ur Amphetamines Screen (Negative) U Methamphetamines Scrn (Negative) Ur MDMA Scrn (Ecstasy) (Negative) U Benzodiazepines Scrn (Negative) Urine Cocaine Screen (Negative) U Marijuana (THC) Screen (Negative) Ethyl Alcohol < 10 ( - 10) mg/dL SARS-CoV-2 (PCR) (Negative) 04/18/20 04/18/20 04/19/20 Range/Units 01:40 09:11 17:49 WBC (4.5-11.0) X10^3/uL RBC (4.5-5.9) X10^6/uL Hgb (13.5-17.5) g/dL Hct (41-53) % MCV (80-100) fL MCH (26-34) PG MCHC (30-36) % RDW (11.6-14.8) % Plt Count (150-400) X10^3/uL Neut % (Auto) (50-75) % Lymph % (Auto) (25-40) % [place] % (Auto) (3-14) % Eos % (Auto) (2-4) % Baso % (Auto) (0-2) % Neut # (Auto) (8685-4128) /uL Lymph # (Auto) (2507-3750) /uL [place] # (Auto) (0-900) /uL Eos # (Auto) (0-450) /uL Baso # (Auto) (0-100) /uL Sodium (137-145) mmol/L Potassium (3.4-5.1) mmol/L Chloride (98-107) mmol/L Carbon Dioxide (22-32) mmol/L BUN (9-20) mg/dL Creatinine (0.66-1.25) mg/dL Estimated GFR (>60) mL/min BUN/Creatinine Ratio (6-22) Glucose (70-100) mg/dL Calcium (8.4-10.2) mg/dL Magnesium 2.1 (1.6-2.3) mg/dL Total Bilirubin (0.2-1.3) mg/dL AST (17-59) IU/L ALT (<50) IU/L Alkaline Phosphatase (38-126) U/L Total Protein (6.3-8.2) g/dL Albumin (3.5-5.0) g/dL Globulin (1.7-4.1) g/dL Albumin/Globulin Ratio (1.0-2.8) TSH (0.47-4.68) uIU/mL U Opiates 300ng/mL cut Positive H (Negative) Ur Oxycodone Screen Negative (Negative) Urine Methadone Screen Negative (Negative) Ur Barbiturates Screen Negative (Negative) U Tricyclic Antidepress Negative (Negative) Ur Phencyclidine Scrn Negative (Negative) Ur Amphetamines Screen Negative (Negative) U Methamphetamines Scrn Negative (Negative) Ur MDMA Scrn (Ecstasy) Negative (Negative) U Benzodiazepines Scrn Negative (Negative) Urine Cocaine Screen Negative (Negative) U Marijuana (THC) Screen Negative (Negative) Ethyl Alcohol ( - 10) mg/dL SARS-CoV-2 (PCR) Negative (Negative) Point of Care Testing Glucose POC 140 MDM Narrative Medical decision making narrative: Patient's pain is much better after Dilaudid and sleeping. He still states that he has suicidal thoughts. Records do show that he does have some suicidal thoughts at baseline will have social Work evaluate him. Patient signed out to Dr. Tubbs <Shayy Tubbs MD - Last Filed: 04/19/20 19:55> Medical Records Attestation: I reviewed the patient's medical records. Lab Data Attestation: I reviewed the patient's lab results. Labs: Lab Results 01/07/21 01/07/21 01/07/21 Range/Units 00:50 00:50 00:50 WBC 5.8 (4.5-11.0) X10^3/uL RBC 4.16 L (4.5-5.9) X10^6/uL Hgb 12.3 L (13.5-17.5) g/dL Hct 37.6 L (41-53) % MCV 90.5 (80-100) fL MCH 29.5 (26-34) PG MCHC 32.6 (30-36) % RDW 14.9 H (11.6-14.8) % Plt Count 167 (150-400) X10^3/uL Neut % (Auto) 59.2 (50-75) % Lymph % (Auto) 28.8 (25-40) % [place] % (Auto) 10.0 (3-14) % Eos % (Auto) 1.3 L (2-4) % Baso % (Auto) 0.7 (0-2) % Neut # (Auto) 3400 (8766-9962) /uL Lymph # (Auto) 1700 (1546-5860) /uL [place] # (Auto) 600 (0-900) /uL Eos # (Auto) 100 (0-450) /uL Baso # (Auto) 0 (0-100) /uL Sodium 138 (137-145) mmol/L Potassium 3.9 (3.4-5.1) mmol/L Chloride 105 (98-107) mmol/L Carbon Dioxide 30 (22-32) mmol/L BUN 16 (9-20) mg/dL Creatinine 0.91 (0.66-1.25) mg/dL Estimated GFR > 60.0 (>60) mL/min BUN/Creatinine Ratio 17.6 (6-22) Glucose 151 H (70-100) mg/dL Calcium 8.7 (8.4-10.2) mg/dL Magnesium (1.6-2.3) mg/dL Total Bilirubin 0.1 L (0.2-1.3) mg/dL AST 26 (17-59) IU/L ALT 23 (<50) IU/L Alkaline Phosphatase 68 (38-126) U/L Total Protein 6.3 (6.3-8.2) g/dL Albumin 3.6 (3.5-5.0) g/dL Globulin 2.7 (1.7-4.1) g/dL Albumin/Globulin Ratio 1.3 (1.0-2.8) TSH 4.68 (0.47-4.68) uIU/mL U Opiates 300ng/mL cut (Negative) Ur Oxycodone Screen (Negative) Urine Methadone Screen (Negative) Ur Barbiturates Screen (Negative) U Tricyclic Antidepress (Negative) Ur Phencyclidine Scrn (Negative) Ur Amphetamines Screen (Negative) U Methamphetamines Scrn (Negative) Ur MDMA Scrn (Ecstasy) (Negative) U Benzodiazepines Scrn (Negative) Urine Cocaine Screen (Negative) U Marijuana (THC) Screen (Negative) Ethyl Alcohol < 10 ( - 10) mg/dL SARS-CoV-2 (PCR) (Negative) 04/18/20 04/18/20 04/19/20 Range/Units 01:40 09:11 17:49 WBC (4.5-11.0) X10^3/uL RBC (4.5-5.9) X10^6/uL Hgb (13.5-17.5) g/dL Hct (41-53) % MCV (80-100) fL MCH (26-34) PG MCHC (30-36) % RDW (11.6-14.8) % Plt Count (150-400) X10^3/uL Neut % (Auto) (50-75) % Lymph % (Auto) (25-40) % [place] % (Auto) (3-14) % Eos % (Auto) (2-4) % Baso % (Auto) (0-2) % Neut # (Auto) (4725-8998) /uL Lymph # (Auto) (8355-3230) /uL [place] # (Auto) (0-900) /uL Eos # (Auto) (0-450) /uL Baso # (Auto) (0-100) /uL Sodium (137-145) mmol/L Potassium (3.4-5.1) mmol/L Chloride (98-107) mmol/L Carbon Dioxide (22-32) mmol/L BUN (9-20) mg/dL Creatinine (0.66-1.25) mg/dL Estimated GFR (>60) mL/min BUN/Creatinine Ratio (6-22) Glucose (70-100) mg/dL Calcium (8.4-10.2) mg/dL Magnesium 2.1 (1.6-2.3) mg/dL Total Bilirubin (0.2-1.3) mg/dL AST (17-59) IU/L ALT (<50) IU/L Alkaline Phosphatase (38-126) U/L Total Protein (6.3-8.2) g/dL Albumin (3.5-5.0) g/dL Globulin (1.7-4.1) g/dL Albumin/Globulin Ratio (1.0-2.8) TSH (0.47-4.68) uIU/mL U Opiates 300ng/mL cut Positive H (Negative) Ur Oxycodone Screen Negative (Negative) Urine Methadone Screen Negative (Negative) Ur Barbiturates Screen Negative (Negative) U Tricyclic Antidepress Negative (Negative) Ur Phencyclidine Scrn Negative (Negative) Ur Amphetamines Screen Negative (Negative) U Methamphetamines Scrn Negative (Negative) Ur MDMA Scrn (Ecstasy) Negative (Negative) U Benzodiazepines Scrn Negative (Negative) Urine Cocaine Screen Negative (Negative) U Marijuana (THC) Screen Negative (Negative) Ethyl Alcohol ( - 10) mg/dL SARS-CoV-2 (PCR) Negative (Negative) Point of Care Testing Glucose POC 140 ECG Data Attestation: I personally reviewed and interpreted this ECG as follows: Interpretation: Sinus rhythm at a rate of 68 QTc is 465 Q-waves inferiorly consistent with prior MD Normal axis No acute ischemic changes <Gera Colindres DO - Last Filed: 04/20/20 01:25> Lab Data Labs: Lab Results 04/18/20 04/18/20 04/18/20 Range/Units 00:50 00:50 00:50 WBC 5.8 (4.5-11.0) X10^3/uL RBC 4.16 L (4.5-5.9) X10^6/uL Hgb 12.3 L (13.5-17.5) g/dL Hct 37.6 L (41-53) % MCV 90.5 (80-100) fL MCH 29.5 (26-34) PG MCHC 32.6 (30-36) % RDW 14.9 H (11.6-14.8) % Plt Count 167 (150-400) X10^3/uL Neut % (Auto) 59.2 (50-75) % Lymph % (Auto) 28.8 (25-40) % [place] % (Auto) 10.0 (3-14) % Eos % (Auto) 1.3 L (2-4) % Baso % (Auto) 0.7 (0-2) % Neut # (Auto) 3400 (4588-5521) /uL Lymph # (Auto) 1700 (8161-3415) /uL [place] # (Auto) 600 (0-900) /uL Eos # (Auto) 100 (0-450) /uL Baso # (Auto) 0 (0-100) /uL Sodium 138 (137-145) mmol/L Potassium 3.9 (3.4-5.1) mmol/L Chloride 105 (98-107) mmol/L Carbon Dioxide 30 (22-32) mmol/L BUN 16 (9-20) mg/dL Creatinine 0.91 (0.66-1.25) mg/dL Estimated GFR > 60.0 (>60) mL/min BUN/Creatinine Ratio 17.6 (6-22) Glucose 151 H (70-100) mg/dL Calcium 8.7 (8.4-10.2) mg/dL Magnesium (1.6-2.3) mg/dL Total Bilirubin 0.1 L (0.2-1.3) mg/dL AST 26 (17-59) IU/L ALT 23 (<50) IU/L Alkaline Phosphatase 68 (38-126) U/L Total Protein 6.3 (6.3-8.2) g/dL Albumin 3.6 (3.5-5.0) g/dL Globulin 2.7 (1.7-4.1) g/dL Albumin/Globulin Ratio 1.3 (1.0-2.8) TSH 4.68 (0.47-4.68) uIU/mL U Opiates 300ng/mL cut (Negative) Ur Oxycodone Screen (Negative) Urine Methadone Screen (Negative) Ur Barbiturates Screen (Negative) U Tricyclic Antidepress (Negative) Ur Phencyclidine Scrn (Negative) Ur Amphetamines Screen (Negative) U Methamphetamines Scrn (Negative) Ur MDMA Scrn (Ecstasy) (Negative) U Benzodiazepines Scrn (Negative) Urine Cocaine Screen (Negative) U Marijuana (THC) Screen (Negative) Ethyl Alcohol < 10 ( - 10) mg/dL SARS-CoV-2 (PCR) (Negative) 04/18/20 04/18/20 04/19/20 Range/Units 01:40 09:11 17:49 WBC (4.5-11.0) X10^3/uL RBC (4.5-5.9) X10^6/uL Hgb (13.5-17.5) g/dL Hct (41-53) % MCV (80-100) fL MCH (26-34) PG MCHC (30-36) % RDW (11.6-14.8) % Plt Count (150-400) X10^3/uL Neut % (Auto) (50-75) % Lymph % (Auto) (25-40) % [place] % (Auto) (3-14) % Eos % (Auto) (2-4) % Baso % (Auto) (0-2) % Neut # (Auto) (2158-8179) /uL Lymph # (Auto) (4473-0945) /uL [place] # (Auto) (0-900) /uL Eos # (Auto) (0-450) /uL Baso # (Auto) (0-100) /uL Sodium (137-145) mmol/L Potassium (3.4-5.1) mmol/L Chloride (98-107) mmol/L Carbon Dioxide (22-32) mmol/L BUN (9-20) mg/dL Creatinine (0.66-1.25) mg/dL Estimated GFR (>60) mL/min BUN/Creatinine Ratio (6-22) Glucose (70-100) mg/dL Calcium (8.4-10.2) mg/dL Magnesium 2.1 (1.6-2.3) mg/dL Total Bilirubin (0.2-1.3) mg/dL AST (17-59) IU/L ALT (<50) IU/L Alkaline Phosphatase (38-126) U/L Total Protein (6.3-8.2) g/dL Albumin (3.5-5.0) g/dL Globulin (1.7-4.1) g/dL Albumin/Globulin Ratio (1.0-2.8) TSH (0.47-4.68) uIU/mL U Opiates 300ng/mL cut Positive H (Negative) Ur Oxycodone Screen Negative (Negative) Urine Methadone Screen Negative (Negative) Ur Barbiturates Screen Negative (Negative) U Tricyclic Antidepress Negative (Negative) Ur Phencyclidine Scrn Negative (Negative) Ur Amphetamines Screen Negative (Negative) U Methamphetamines Scrn Negative (Negative) Ur MDMA Scrn (Ecstasy) Negative (Negative) U Benzodiazepines Scrn Negative (Negative) Urine Cocaine Screen Negative (Negative) U Marijuana (THC) Screen Negative (Negative) Ethyl Alcohol ( - 10) mg/dL SARS-CoV-2 (PCR) Negative (Negative) Point of Care Testing Glucose POC 140 Discharge Plan Departure Patient Disposition: Home Clinical Impression: Schizoaffective disorder, depressive type, Suicidal ideation, Auditory hallu cination, Acute pain of right knee Instructions: DI for Schizoaffective Disorder Activity Restrictions/Additional Instructions: Thank you for spending the last few days with us It sounds like you feel that your voices are calmed somewhat and you do not feel like you need to kill yourself at this time. Should the voices become more intrusive, please feel free to return to the [facility] department Dr. Jovel will give you a call on Wednesday to set up an outpatient appointment Prescriptions: No Action lisinopril 10 mg tablet 40 mg PO DAILY RF: 0 gabapentin 300 mg capsule 600 mg PO TID RF: 0 insulin glargine 100 unit/mL (3 mL) insulin pen 35 unit Sub-Q BID RF: 0 lorazepam 1 mg tablet 1 mg PO DAILY PRN (Reason: agitation) Qty: 10 RF: 5 divalproex [Depakote ER] 500 mg tablet extended release 24 hr See Rx Instructions PO .COMPLEX Qty: 360 RF: 3 fenofibrate 160 mg tablet 160 mg PO DAILY RF: 0 lurasidone 60 mg tablet 60 mg PO QPM Qty: 30 RF: 1 oxycodone 5 mg tablet 5 mg PO Q8H PRNRF: 0 metformin [Glucophage XR] 500 MG tablet extended release 24 hr 500 mg PO BIDCC Qty: 60 RF: 0 nitroglycerin [Nitrostat] 0.4 mg Tablet, Sublingual 0.4 mg Sublingual Q5 MIN PRN PRN (Reason: Chest Pain) RF: 0 atorvastatin 40 mg Tablet 40 mg PO BEDTIME RF: 0 levothyroxine [Synthroid] 75 mcg Tablet 75 mcg PO DAILY RF: 0 insulin aspart U-100 100 unit/mL Insulin Pen See Rx Instructions .ROUTE .COMPLEX RF: 0 aspirin 81 mg Tablet,Delayed Release (Dr/Ec) 81 mg PO DAILY RF: 0 Xarelto 20 mg Tablet 20 mg PO QPM RF: 0 hydrochlorothiazide 25 mg Tablet 25 mg PO DAILY RF: 0 metoprolol succinate [Toprol XL] 25 MG tablet extended release 24 hr 25 mg PO DAILY RF: 0 omeprazole 20 mg Capsule,Delayed Release(Dr/Ec) 20 mg PO DAILY RF: 0 tamsulosin [Flomax] 0.4 mg capsule 0.4 mg PO BEDTIME Qty: 14 RF: 0 ergocalciferol (vitamin D2) 1,250 mcg (50,000 unit) capsule 1,250 mcg PO QWEEK RF: 0 Referrals: Sandra Garland MD [Primary Care Provider] -
--- NOTE | 2020-04-18 00:35 | PC.NURSE ---
Pt returns to ED ambulatory, placed in 1:1 obs, bedside
--- NOTE | 2020-04-18 00:36 | PC.NURSE ---
Pt is sitting down on the edge of the bed.
[2020-04-18] MEDS: HYDROMORPHONE 2 MG INJ 1 MG SUBCUT (00:39)
--- NOTE | 2020-04-18 00:44 | PC.NURSE ---
Pt is in the room with RN. RN is taking vital signs. The patient is flash and compliant at this time.
[2020-04-18 00:46] VITALS: BP 150/67; PULSE 65; RESP 18; O2SAT 97
--- NOTE | 2020-04-18 00:59 | PC.NURSE ---
patient reports not having pain medications for two days. Can't tolerate the pain any longer. Has not tried any OTC meds at home today
[2020-04-18 01:02] LABS: Add Manual Diff / Slide Review NO; Basophils Absolute Auto 0 /uL (0-100); Basophils Percent Auto 0.7 % (0-2); Eosinophils Absolute Auto 100 /uL (0-450); Eosinophils Percent Auto 1.3 % (2-4); Hematocrit 37.6 % (41-53); Hemoglobin 12.3 g/dL (13.5-17.5); Lymphocytes Absolute Auto 1700 /uL (1100-4500); Lymphocytes Percent Auto 28.8 % (25-40); Mean Corpuscular HGB Conc 32.6 % (30-36); Mean Corpuscular Hemoglobin 29.5 PG (26-34); Mean Corpuscular Volume 90.5 fL (80-100); Monocytes Absolute Auto 600 /uL (0-900); Neutrophils Absolute Auto 3400 /uL (1500-7000); Neutrophils Percent Auto 59.2 % (50-75); Platelet Count 167 X10^3/uL (150-400); Red Blood Cell Count 4.16 X10^6/uL (4.5-5.9); Red Cell Distribution Width 14.9 % (11.6-14.8); White Blood Cell Count 5.8 X10^3/uL (4.5-11.0)
[2020-04-18 01:12] LABS: Alanine Aminotransferase 23 IU/L (<50); Albumin 3.6 g/dL (3.5-5.0); Albumin Globulin Ratio 1.3 (1.0-2.8); Alkaline Phosphatase 68 U/L (38-126); Aspartate Aminotransferase 26 IU/L (17-59); BUN Creatinine Ratio 17.6 (6-22); Bilirubin Total 0.1 mg/dL (0.2-1.3); Blood Urea Nitrogen 16 mg/dL (9-20); Calcium 8.7 mg/dL (8.4-10.2); Carbon Dioxide 30 mmol/L (22-32); Chloride 105 mmol/L (98-107); Estimated Glomerular Filt Rate > 60.0 mL/min (>60); Ethanol (ETOH) < 10 mg/dL; Globulin 2.7 g/dL (1.7-4.1); Glucose 151 mg/dL (70-100); HEMOLYSIS < 15 (0-50); Potassium 3.9 mmol/L (3.4-5.1); Sodium 138 mmol/L (137-145); Total Protein 6.3 g/dL (6.3-8.2)
[2020-04-18 01:52] LABS: Ur Creatinine 20 (Normal); Ur Specific Gravity 1.025 (Normal)
[2020-04-18 01:53] LABS: UR Morphine/Opiate cutoff 300 Positive (Negative); Urine Amphetamines Negative (Negative); Urine Barbiturates Negative (Negative); Urine Benzodiazepines Negative (Negative); Urine Cocaine Negative (Negative); Urine MDMA Negative (Negative); Urine Methadone Negative (Negative); Urine Methamphetamines Negative (Negative); Urine Oxycodone Negative (Negative); Urine Phencyclidine Negative (Negative); Urine Tetrahydrocannabinol Negative (Negative); Urine Tricyclic Antidepressant Negative (Negative); Urine pH 5 (Normal)
--- NOTE | 2020-04-18 02:00 | PC.NURSE ---
Pt is laying down on the bed in his room.
[2020-04-18 02:06] LABS: Thyroid Stimulating Hormone 4.68 uIU/mL (0.47-4.68)
[2020-04-18] MEDS: HYDROCODONE/ACET 5/325 TABLET 2 TAB PO (03:21)
--- NOTE | 2020-04-18 03:28 | PC.NURSE ---
He told me that he still had thoughts of harming himself and that he has had these thoughts frequently.He stated he has told his psychiatrist about these thoughts of harming himself.
--- NOTE | 2020-04-18 04:00 | PC.NURSE ---
patient continues to sleep.
--- NOTE | 2020-04-18 05:02 | PC.NURSE ---
Pt ambulated to the bathroom independently. He is now back in bed and laying down. He is calm and compliant at this time.
[2020-04-18 09:21] VITALS: BP 157/83; PULSE 68
[2020-04-18] MEDS: lisinopriL 20 MG TABLET 40 MG PO (09:21)
[2020-04-18] MEDS: hydroCHLOROthiazide 25 MG TABLET PO (09:23)
[2020-04-18] MEDS: GABAPENTIN 600 MG TABLET PO ×3 (09:24→20:51)
[2020-04-18] MEDS: BENZTROPINE 1 MG TABLET 0.5 MG PO ×2 (09:25→20:51)
[2020-04-18] MEDS: FENOFIBRATE 160 MG TABLET PO (09:25)
[2020-04-18] MEDS: DIVALPROEX ER 250 MG TAB 500 MG PO (09:25)
[2020-04-18 09:26] VITALS: BP 157/83; PULSE 67
[2020-04-18] MEDS: METOPROLOL ER 25 MG TABLET PO (09:26)
[2020-04-18] MEDS: METFORMIN HCL 500 MG TABLET PO ×2 (09:30→17:28)
[2020-04-18 09:32] LABS: COVID19 -Nasal RAPID Negative (Negative)
[2020-04-18] MEDS: LEVOTHYROXINE 75 MCG TABLET PO (09:32)
[2020-04-18] MEDS: INSULIN ASPART 100 UNIT/ML INSULN PEN 20 UNIT SUBCUT (09:57)
[2020-04-18] MEDS: INSULIN GLARGINE 100 UNIT/ML 3ML PEN 35 UNIT SUBCUT (10:00)
[2020-04-18] MEDS: RIVAROXABAN 10 MG TABLET 20 MG PO ×2 (10:04→17:29)
[2020-04-18] MEDS: ASPIRIN EC 81 MG TABLET PO (10:04)
[2020-04-18 10:34] VITALS: BP 167/78; PULSE 70
[2020-04-18] MEDS: PANTOPRAZOLE 20 MG TABLET PO (10:34)
--- NOTE | 2020-04-18 10:34 | CM.DANOTE ---
Addendum entered by Airam Fischer R.N. 04/18/20 11:34: [facility] turns down admission because QTC is too high... must be below 450 for admission. There is also some concern that his pain focus. Since [facility] won't dispense narcotics they have some concern he will check himself out or they will have to transfer him to [place] to address pain needs. Unclear to admissions coord. from assessments also if psychosis is driving SI or pain needs. Addendum entered by Airam Fischer R.N. 04/18/20 11:06: Spoke to Qi at [facility]. Faxed clinical information to her with my [id number] extension as primary contact. Awaiting response. Addendum entered by Airam Fischer R.N. 04/18/20 10:53: Called ED and updated Dr. Fletcher with the below plan. Original Note: 59 year old patient of Dr. Jovel presented here with complaints of suicidal ideation. I spoke with him this am and he states that the voices he heres fairly consistently are getting louder in the last several days. When I asked if he had a plan for suicide he had to think about it a few minutes and said, Something with the bridge.... I'll drive off it or maybe just jump. He does drive and have access to a car. He wants to get treated at a pyschiatric hospital. When we talked about help he's had in the past for his voices he told me that he sees Dr. Jovel for the voices. He told me that he was supposed to see her tomorrow. I asked if I could tell her he was here now and he was agreeable. I called Dr. Jovel to get her thoughts on inpatient treatment. She isn't in today, so I spoke to MEMO Alberto. Dolly told me that it had been a month since he'd been seen. She spoke to Dr. Will and he was going to stop by the ED to speak to patient for better detail and to assess inpatient plan.
--- NOTE | 2020-04-18 13:01 | PC.NURSE ---
pt states thoughts are due to his knee pain.
--- NOTE | 2020-04-18 13:02 | PC.NURSE ---
pt not wanting to eat lunch, recheck blood glucose, before insulin dose.
[2020-04-18 13:57] VITALS: BP 110/54; PULSE 60; RESP 16; TEMP 36.5; O2SAT 99
[2020-04-18] MEDS: IBUPROFEN 400 MG TABLET PO ×2 (15:25→21:45)
[2020-04-18] MEDS: ACETAMINOPHEN 325 MG TABLET PO ×2 (15:25→21:45)
[2020-04-18] MEDS: INSULIN ASPART 100 UNIT/ML INSULN PEN 30 UNIT SUBCUT (17:23)
[2020-04-18 20:29] VITALS: BP 153/67; PULSE 66; RESP 20; O2SAT 96
[2020-04-18] MEDS: DIVALPROEX ER 250 MG TAB 1500 MG PO (20:50)
[2020-04-18] MEDS: ATORVASTATIN 20 MG TABLET 40 MG PO (20:51)
--- NOTE | 2020-04-18 22:37 | PC.NURSE ---
Pt requesting to take a shower. Request granted
--- NOTE | 2020-04-18 22:54 | PC.NURSE ---
Pt has finished shower and is back on gurney lying down with the door partially closed to cut down on noise in Room per Pt request
--- NOTE | 2020-04-18 23:00 | PC.NURSE ---
Pt was provided supplies for a shower.
--- NOTE | 2020-04-19 00:03 | PC.NURSE ---
Pt is sitting in the room. House keeping was able to bring an inpatient bed so patient could be more comfortable for the duration of his time in the Emergency Department.
--- NOTE | 2020-04-19 00:05 | PC.NURSE ---
Pt had walked out of Emergency department. Caught up with pt in his vehicle. Pt states wanting to go home and sleep in his on bed because his knee was spasming. Ask patient if he would come back to the department if we switched his bed to an inpatient bed. Pt was agreeable and ambulated back into department. Swapped bed to in patient bed and Pt agreable.
[2020-04-19 08:11] VITALS: BP 163/80; PULSE 56; RESP 14; O2SAT 96
[2020-04-19] MEDS: ASPIRIN EC 81 MG TABLET PO (08:58)
[2020-04-19] MEDS: METOPROLOL ER 25 MG TABLET PO (08:59)
[2020-04-19] MEDS: FENOFIBRATE 160 MG TABLET PO (08:59)
[2020-04-19] MEDS: METFORMIN HCL 500 MG TABLET PO ×2 (08:59→17:06)
[2020-04-19] MEDS: RIVAROXABAN 10 MG TABLET 20 MG PO ×2 (08:59→17:07)
[2020-04-19] MEDS: DIVALPROEX ER 250 MG TAB 500 MG PO (09:00)
[2020-04-19] MEDS: lisinopriL 20 MG TABLET 40 MG PO (09:00)
[2020-04-19] MEDS: GABAPENTIN 600 MG TABLET PO ×2 (09:01→16:59)
[2020-04-19] MEDS: LEVOTHYROXINE 75 MCG TABLET PO (09:01)
[2020-04-19] MEDS: hydroCHLOROthiazide 25 MG TABLET PO (09:01)
[2020-04-19] MEDS: INSULIN ASPART 100 UNIT/ML INSULN PEN 20 UNIT SUBCUT (09:02)
[2020-04-19] MEDS: INSULIN GLARGINE 100 UNIT/ML 3ML PEN 35 UNIT SUBCUT (09:03)
[2020-04-19] MEDS: OLANZapine 2.5 MG TABLET 5 MG PO (09:07)
[2020-04-19] MEDS: TRIAMCINOLONE 40 MG/ML VIAL IM (09:07)
[2020-04-19] MEDS: BUPIVACAINE 0.5% (PF) VIAL 5 ML SUBCUT (09:08)
--- NOTE | 2020-04-19 09:59 | PC.NURSE ---
Dr. Jovel in to visit patient today
--- NOTE | 2020-04-19 10:37 | PM.CN ---
History of Present Illness Consult details Date Patient Seen: 04/19/20 Time Patient Seen: 08:15 Chief complaint: Severe Left knee pain X1 day Reason for consult: Psych eval & continuity of care Requesting provider: Shayy Tubbs Narrative: CC: I'm terrible Spoke with Luis E in ED today. States that voices are bad, telling him to end his life worse since 04/17/20 pain visit where they told him he wasn?t taking his meds correctly & they wouldn?t refill his pain rx. Knee pain has been really bad ?taking over my life?. Plans to end his life include going to the bridge & jumping off or tying the bedsheets up in his ED room. States that the voices are saying ?you know how to end the pain, just kill yourself?. States that he wouldn?t act on plans in ED ?because I?m lazy?. States that he doubts that acting on self-harm in ED will be a problem, and he could talk to nursing staff if that changes. States that pain doctor talked about a medication that could help with mood and pain, but does not the paperwork remember what it is. Duloxetine or Cymbalta does sound familiar. Prior to 04/17/19 pain visit, states that he was feeling about the same as our last visit, voices were on and off, mood was not great but thoughts about hurting himself were not this intense. Not sleeping great. Some dizziness. Feels hopeless about knee pain, states that when he sees doctors he is just told there was nothing they could do or that they are waiting on approval, feeling really frustrated by knee pain being such a problem States that getting olanzapine in the ER was fine, slept about the same as he does at home comfort of the bed being the most limiting factor. Spoke with Dr. Tubbs in ED; he received 10mg olanzapine last night since no Latuda in our pharmacy, none the night before. C/o knee pain, may do pain injection today. Looking for inpatient bed. Meds Home Medications and Allergies Home Medications Medication Instructions Recorded Confirmed Type metformin [Glucophage XR] 500 mg PO BIDCC #60 tab 12/25/16 03/19/20 History atorvastatin 40 mg PO BEDTIME 10/12/17 03/19/20 History insulin aspart U-100 See Rx Instructions .ROUTE .COMPLEX 10/12/17 03/19/20 History levothyroxine [Synthroid] 75 mcg PO DAILY 10/12/17 03/19/20 History nitroglycerin [Nitrostat] 0.4 mg SUBLINGUAL Q5 MIN PRN PRN 10/12/17 03/19/20 History hydrochlorothiazide 25 mg PO DAILY 05/26/18 03/19/20 History metoprolol succinate [Toprol XL] 25 mg PO DAILY 05/26/18 03/19/20 History fenofibrate 160 mg tablet 160 mg PO DAILY 12/16/18 03/19/20 History omeprazole 20 mg PO DAILY 12/20/18 03/19/20 History Xarelto 20 mg PO QPM 02/16/19 03/19/20 History aspirin 81 mg PO DAILY 02/16/19 03/19/20 History insulin glargine 100 unit/mL (3 35 unit SUB-Q BID ml 08/25/19 03/19/20 History mL) subcutaneous pen lisinopril 10 mg tablet 40 mg PO DAILY 08/25/19 03/19/20 History gabapentin 300 mg capsule 600 mg PO TID cap 11/29/19 03/19/20 History ergocalciferol (vitamin D2) 1,250 1,250 mcg PO QWEEK 11/30/19 03/19/20 History mcg (50,000 unit) capsule divalproex 500 mg tablet,extended See Rx Instructions PO .COMPLEX 02/06/20 03/19/20 Rx release 24 hr #360 tab lorazepam 1 mg tablet 1 mg PO DAILY PRN #10 tab 02/06/20 03/19/20 Rx lurasidone 60 mg tablet 60 mg PO QPM #30 tab 03/05/20 03/19/20 Rx oxycodone 5 mg tablet 5 mg PO Q8H PRN 03/19/20 03/19/20 History tamsulosin [Flomax] 0.4 mg PO BEDTIME #14 cap 03/23/20 Rx Allergies Allergy/AdvReac Type Severity Reaction Status Date / Time Penicillins [PENICILLINS] Allergy Severe Swelling Verified 03/19/20 08:33 of Lip/Tongue/Throat quetiapine AdvReac Intermediate oversedation Verified 03/19/20 08:August Alluna Sleep AdvReac Severe Difficulty Uncoded 03/19/20 08:33 Swallowing Review of Systems Constitutional Constitutional: Reports daytime sleepiness ENT Ears, Nose, Mouth, and Throat: Yes dizziness Neurologic Neurologic: Reports dizziness Psychiatric Psychiatric: Reports as per HPI Exam Vital Signs (past 8 hours): - 04/19/20 08:11 Pulse Rate 56 L Respiratory Rate 14 Blood Pressure 163/80 H Pulse Oximetry 96 Oxygen Delivery Method Room Air Narrative Exam Narrative: MENTAL STATUS EXAM Appearance: Unkempt, appears stated age, bed sheet pulled over his body Behavior: Lying in bed, awakens when this provider shakes bed slightly, cooperative with interview, only limited eye contact, no involuntary movements or psychomotor changes observed Gait: Not observed Speech: Slow, quieter than baseline Mood: Bad Affect: Congruent with content, dysthymic, constricted Thought Process: [place], perseverative Thought Content: + CAH to end his life with plan to jump off bridge or hang himself, denies HI, denies VH Attention: Attentive to interview Orientation: Oriented to person place and time Memory: Intact for interview, not formally tested; remembers we had phone call visit scheduled for today Insight: Limited Judgment: Limited Objective Labs Result Diagrams: 04/18/20 00:50 04/18/20 00:50 Assessment & Plan Assessment and plan (1) Schizoaffective disorder, depressive type: Status: Chronic (2) Acute knee pain: Qualifiers: Laterality: left Qualified Code(s): M25.562 - Pain in left knee Status: Acute Assessment & Plan narrative: Luis E Pierre is a 59-year-old who I follow as an outpatient with monthly visits, last in March. Psychiatrically, he is decompensated from baseline today. Command auditory hallucinations are consistent currently, where they are typically episodic or more under his control to ignore. Knee pain is a significant contributing factor, and obtaining pain medications is typically a stressor for him so it is not surprising that having pain prescription stopped recently was a precipitating factor for acute distress. I do not currently see evidence that he will attempt to harm himself in the emergency room. He does have history of suicide attempts, and with current decompensation he is at acutely high risk of self-harm. This is based on chronic risk factors (depression diagnosis, h/o suicide attempts, medical comorbidities), current risk factors (acute pain, anxiety, insomnia, CAH) and lack of current protective factors (alternative coping mechanisms). He is currently willing for voluntary admission. If that changes, it is prudent to consider involuntary referral to [facility]; however, this would be based on clinical assessment if that happens, as he is typically willing to seek help & demonstrates this by frequent ED visits. We also likely need to evaluate his current psychotropic regimen; likely needs increase in Latuda vs trial of different agent if dizziness is limiting factor for higher doses. Olanzapine very appropriate in ED setting, but will avoid long-term due to high risk of worsening metabolic SE which he struggles with at baseline. Trial of duloxetine to try to address some level of pain & anxiety is worth addressing, as we did not see destabilization on max dose fluoxetine previously, but he did struggle with bruxism. No need to make medication changes in the ED, especially since we do not have access to Latuda currently, but making changes on an inpatient unit would be much safer in his current state. RECOMMENDATIONS: - Agree with plan for voluntary psychiatric admission, and will likely need hospital based facility like [facility] for older adults (may not qualify based on age but medically similar to a pt >65yo). - Olanzapine: increase to 5mg QAM, and 10mg QHS. OK to have 5mg daily prn severe agitation or hallucinations available - OK to offer lorazepam 1mg prn severe anxiety/panic, he has responded well to this - Continue other home psychotropics as follows: - Cogentin: Continue 0.5 mg twice a day for stiffness - Gabapentin: Continue 600mg at bedtime for sleep - Depakote: Continue 500mg each morning and 1500 mg each night for mood Thank you for involving me in this patient's care, and please let me know if I can help in any way to find an inpatient bed. I am available today via clinic # [phone] or personal cell which ED providers have. I am off over the weekend but am happy to be contacted if needed.
[2020-04-19 11:45] VITALS: BP 126/57; PULSE 66; RESP 16; TEMP 36.2; O2SAT 95
[2020-04-19] MEDS: PANTOPRAZOLE 20 MG TABLET PO (12:22)
[2020-04-19] MEDS: IBUPROFEN 400 MG TABLET PO ×2 (12:23→17:07)
[2020-04-19] MEDS: ACETAMINOPHEN 325 MG TABLET PO ×2 (12:23→17:07)
[2020-04-19] MEDS: INSULIN ASPART 100 UNIT/ML INSULN PEN 25 UNIT SUBCUT (12:25)
--- NOTE | 2020-04-19 12:25 | CM.SWNOTE ---
MILLING SUPERVISOR note MILLING SUPERVISOR reviews chart, staffs with Dr. Tubbs, GUANACO Burns, and RAJNI Hamm. Patient is currently pending at [facility] and RAJNI Hamm has faxed clinicals to [facility]. Per Hansel, [facility] is reviewing as of roughly 1215 04/19/19. MILLING SUPERVISOR will follow up with [facility] approx. 1 hour and continue coordination in seeking voluntary inpatient placement for patient. GUANACO Ley
[2020-04-19] MEDS: INSULIN ASPART 100 UNIT/ML INSULN PEN 30 UNIT SUBCUT (17:00)
[2020-04-19 17:21] VITALS: BP 113/57; PULSE 58; RESP 20; O2SAT 97
[2020-04-19 18:28] LABS: Magnesium 2.1 mg/dL (1.6-2.3)
--- NOTE | 2020-04-19 19:58 | PC.NURSE ---
patient showered, deodorant and tooth brushing!
[2020-04-19 20:03] VITALS: BP 140/63; PULSE 67; RESP 20; O2SAT 95
--- NOTE | 2020-04-19 20:12 | CM.SWNOTE ---
RICE MILLING SUPERVISOR note/UPDATE RICE MILLING SUPERVISOR calls [facility] at 1342 and speaks with Royer. Royer informs RICE MILLING SUPERVISOR that patient?s chart has not be reviewed yet and that [facility] will call RICE MILLING SUPERVISOR once the chart is reviewed. RAJNI Holguinh informs RICE MILLING SUPERVISOR that patient had talked to his son and that he was now requesting to leave. RICE MILLING SUPERVISOR enters room and speaks with patient. Patient avoids eye contact and explains that he has been ?hearing voices? and that the voices have been telling him to ?kill myself?. Patient reports that he just got off the phone with his son and states ?I just want to go home, I don?t want to kill myself anymore?. Patient explains that he has been hearing voices for his entire life, and tries to ?ignore? them. Patient reports he has been hospitalized 3 times previously, all between 9 and 11 years prior. Patient expresses frustration over knee pain and requests doctor support. RICE MILLING SUPERVISOR asks patient to stay while he contacts ED provider and patient psychiatrist. Patient gives verbal consent for RICE MILLING SUPERVISOR to contact Dr. Jovel, patient psychiatrist. RICE MILLING SUPERVISOR exits room and updates ED Provider Dr. Tubbs, who enters room to address patient?s knee pain. RICE MILLING SUPERVISOR receives call from Dr. Jovel. Dr. Jovel explains that she met with patient this morning and currently believes that inpatient treatment would be appropriate for patient. Dr. Jovel explains that she is open to both outpatient plan and contacting a DCR. RICE MILLING SUPERVISOR re-enters room and speaks with patient. Patient and RICE MILLING SUPERVISOR discuss conversation with Dr. Jovel, and that it is the opinion of Dr. Jovel and Dr. Tubbs that patient should stay in ED while seeking inpatient placement. Patient states he wants to go home to shower, says that he usually takes 5-6 showers/day, and explains that showing is helpful to him because it ?drowns everything out?. RICE MILLING SUPERVISOR asks if patient is experiencing auditory hallucinations that he is wanting to drown out and patient states ?yes?. RICE MILLING SUPERVISOR asks Dr. Tubbs if a shower can be arranged for patient and Dr. Tubbs agrees. RICE MILLING SUPERVISOR informs [facility] who will help arrange a shower. At end of conversation, patient states he is agreeable to remain in ED while a bed is secured. RICE MILLING SUPERVISOR and patient discussed potential placement at different hospital, and patient expresses agreement. RICE MILLING SUPERVISOR calls [facility] and is informed that they currently have no open beds. RICE MILLING SUPERVISOR exchanges phone calls with staff at [facility] throughout day. RICE MILLING SUPERVISOR receives call from [facility] stating that they cannot accept patient. RICE MILLING SUPERVISOR enters room and speaks with patient. Patient explains that he wants to go home, and expresses frustration that no one has been able to accept him for placement. Patient states he does not want to be in ED any longer and that Patient is able to articulate that he knows to call the mental health crisis line if considering harming self and denies any current SI/HI. Patient reports he is open to daily check ins from [facility]. RICE MILLING SUPERVISOR consults with Dr. Tubbs who requests that ED RICE MILLING SUPERVISOR contact Dr. Jovel to discuss potential for d/c to home. RICE MILLING SUPERVISOR calls Dr. Jovel and leaves at 1820. Dr. Jovel returns RICE MILLING SUPERVISOR call. RICE MILLING SUPERVISOR explains denial from [facility] and patient?s current presentation. Dr. Jovel states that patient?s presentation is ?close to baseline?, patient is likely safe for D/C to home, and states her office will follow up with patient on Wednesday. RICE MILLING SUPERVISOR discusses this with Dr. Tubbs who indicates agreement with plan. RICE MILLING SUPERVISOR updates patient on plan for d/c and patient indicates agreement and understanding. RICE MILLING SUPERVISOR calls [facility] and sets up phone check-ins for patient. Plan: Patient to D/C to home with follow up calls from [facility] Wednesday-Wednesday, and follow up from Dr. Jovel on Wednesday. GUANACO Ley
== END 2020-04-19 20:11 | disposition home or self-care (01) ==
PROVIDERS: Emergency Medicine; Emergency Provider Emergency Medicine; PCP Family Medicine
DX: F25.1 Schizoaffective disorder, depressive type (principal); R45.851 Suicidal ideations; M25.562 Pain in left knee; R07.9 Chest pain, unspecified; E11.9 Type 2 diabetes mellitus without complications; Z79.4 Long term (current) use of insulin; I10 Essential (primary) hypertension; E78.5 Hyperlipidemia, unspecified; I25.10 Atherosclerotic heart disease of native coronary artery without angina pectoris; E66.01 Morbid (severe) obesity due to excess calories; Z20.822 Contact with and (suspected) exposure to COVID-19
CPT/HCPCS: 20552; 36415; 80053; 80305; 80320; 82962; 83735; 84443; 85025; 87635; 93005; 96372; 99284; C9803; J1170

== ENCOUNTER 2020-04-26 06:55 | Emergency (ER) | payer OTHER, SELFPAY ==
[2019-07-13 01:30] VITALS: BMI 42.5
[2020-04-26 07:07] VITALS: BP 180/92; PULSE 69; RESP 24; TEMP 36.6; O2SAT 99; BMI 98.8
[2020-04-26] MEDS: SODIUM CHLORIDE 0.9% 1,000 ML 1000 ML IV (07:56)
[2020-04-26] MEDS: ONDANSETRON 4 MG/2 ML INJ IV (07:56)
[2020-04-26 07:59] LABS: Add Manual Diff / Slide Review NO; Basophils Absolute Auto 0 /uL (0-100); Basophils Percent Auto 0.7 % (0-2); Eosinophils Absolute Auto 100 /uL (0-450); Eosinophils Percent Auto 2.1 % (2-4); Hematocrit 35.7 % (41-53); Hemoglobin 11.6 g/dL (13.5-17.5); Lymphocytes Absolute Auto 1900 /uL (1100-4500); Lymphocytes Percent Auto 36.9 % (25-40); Mean Corpuscular HGB Conc 32.5 % (30-36); Mean Corpuscular Hemoglobin 29.2 PG (26-34); Monocytes Absolute Auto 300 /uL (0-900); Monocytes Percent Auto 6.3 % (3-14); Neutrophils Absolute Auto 2800 /uL (1500-7000); Platelet Count 140 X10^3/uL (150-400); Red Blood Cell Count 3.96 X10^6/uL (4.5-5.9); Red Cell Distribution Width 14.7 % (11.6-14.8); White Blood Cell Count 5.3 X10^3/uL (4.5-11.0)
[2020-04-26 08:06] LABS: INR 1.1 (0.9-1.3); Prothrombin Time 12.8 SECONDS (10.1-12.7)
--- NOTE | 2020-04-26 08:06 | ED_ITS ---
HPI - Nausea/Vomiting/Diarrhea General Chief complaint: Nausea/Vomiting/Diarrhea Stated complaint: threw up blood Time Seen by Provider: 04/26/20 07:09 Source: patient Mode of arrival: Ambulatory Limitations: no limitations History of Present Illness HPI Narrative: 59-year-old gentleman with a history of schizoaffective disorder depressive type, coronary artery disease currently on Xarelto, type 2 diabetes, hypertension, hyperlipidemia, presents with nausea for the last 12 hours and some vomiting this morning that he noted was slightly blood flecked. No clots were appreciated. He has not reported abdominal pain or diarrhea and specifically notes no black stools. His last bowel movement was over 2 days ago which is not usual for him, he states he usually goes daily. Notes no chest pain, dyspnea, palpitations, orthopnea or orthostasis. He states that his baseline hallucinations seem to be relatively controlled at this point in he reports no suicidal ideation. Notes he has not taken his usual morning medications. Related Data Home Medications Medication Instructions Recorded Confirmed metformin [Glucophage XR] 500 mg PO BIDCC #60 tab 12/25/16 03/19/20 atorvastatin 40 mg PO BEDTIME 10/12/17 03/19/20 insulin aspart U-100 See Rx Instructions .ROUTE .COMPLEX 10/12/17 03/19/20 levothyroxine [Synthroid] 75 mcg PO DAILY 10/12/17 03/19/20 nitroglycerin [Nitrostat] 0.4 mg SUBLINGUAL Q5 MIN PRN PRN 10/12/17 03/19/20 hydrochlorothiazide 25 mg PO DAILY 05/26/18 03/19/20 metoprolol succinate [Toprol XL] 25 mg PO DAILY 05/26/18 03/19/20 fenofibrate 160 mg tablet 160 mg PO DAILY 12/16/18 03/19/20 omeprazole 20 mg PO DAILY 12/20/18 03/19/20 Xarelto 20 mg PO QPM 02/16/19 03/19/20 aspirin 81 mg PO DAILY 02/16/19 03/19/20 insulin glargine 100 unit/mL (3 35 unit SUB-Q BID ml 08/25/19 03/19/20 mL) subcutaneous pen lisinopril 10 mg tablet 40 mg PO DAILY 08/25/19 03/19/20 gabapentin 300 mg capsule 600 mg PO TID cap 11/29/19 03/19/20 ergocalciferol (vitamin D2) 1,250 1,250 mcg PO QWEEK 11/30/19 03/19/20 mcg (50,000 unit) capsule oxycodone 5 mg tablet 5 mg PO Q8H PRN 03/19/20 03/19/20 Previous Rx's Medication Instructions Recorded divalproex 500 mg tablet,extended See Rx Instructions PO .COMPLEX 02/06/20 release 24 hr #360 tab lorazepam 1 mg tablet 1 mg PO DAILY PRN #10 tab 02/06/20 lurasidone 60 mg tablet 60 mg PO QPM #30 tab 03/05/20 tamsulosin [Flomax] 0.4 mg PO BEDTIME #14 cap 03/23/20 metoclopramide HCl [Reglan] 10 mg PO Q6H PRN #20 tab 04/26/20 Allergies Allergy/AdvReac Type Severity Reaction Status Date / Time Penicillins [PENICILLINS] Allergy Severe Swelling Verified 03/19/20 08:33 of Lip/Tongue/Throat quetiapine AdvReac Intermediate oversedation Verified 03/19/20 08:August Alluna Sleep AdvReac Severe Difficulty Uncoded 03/19/20 08:33 Swallowing Review of Systems Review of Systems Narrative: Remainder of review of systems including constitutional, ENT, cardiovascular, respiratory, GI, , musculoskeletal, skin, neurologic and psychiatric systems reviewed and are unremarkable except as noted in HPI. Patient History Medical History Atypical chest pain CAD (coronary artery disease) Chronic left shoulder pain Diabetes type 2, controlled HTN (hypertension) Hyperlipidemia Morbid obesity with body mass index (BMI) of 40.0 to 49.9 Obstructive sleep apnea of adult Pulmonary embolism Schizoaffective disorder, depressive type (03/17/11) Tardive dyskinesia Surgical History Hx of CABG Family History Mother Coronary artery disease Father No problems noted. Social History marital status: unmarried,single details: lives with his parents household members: family lives independently: Yes caregiver/support person: Yes housing: house pets and animals: Yes Smoking Status: Former smoker alcohol intake: never substance use type: does not use Smoking Status: Former smoker alcohol intake frequency: 0-2 drinks per day Substance Use Type: does not use Exam Narrative Exam Narrative: General: Healthy appearing, in no acute distress. Able to give a complete and coherent history. Well-nourished well-developed HEENT: Moist mucous membranes, normal sclera with reactive pupils, Neck: No JVD, supple Respiratory: Lungs are clear to auscultation, no wheezing no rales no rhonchi. Full and symmetrical air movement Cardiac: Regular rate and rhythm no murmurs no bruits Abdomen: Soft, mild diffuse tenderness, no rebound no guarding, good bowel tones, no flank pain Skin: Warm and dry, no rashes Neurologic: Grossly neurologically intact with no obvious asymmetries or abnormalities Extremities: No trauma, well perfused Psych: Cooperative, appropriate insight and affect Initial Vital Signs Initial Vital Signs: Vital Signs Temperature 97.8 F 04/26/20 07:07 Pulse Rate 69 04/26/20 07:07 Respiratory Rate 24 04/26/20 07:07 Blood Pressure 180/92 H 04/26/20 07:07 Pulse Oximetry 99 04/26/20 07:07 Course Orders Ordered: ED Orders 04/26/20 07:14 EKG-12 Lead Stat 04/26/20 07:45 Complete Blood Count AUTO DIFF Stat Comprehensive Metabolic Panel Stat Partial Thromboplastin Time Stat Prothrombin Time INR Stat Troponin I Stat Type and Screen Stat 04/26/20 08:55 COVID19 Stat Discontinued Medications Sodium Chloride (Normal Saline 0.9%) 1,000 mls @ 1,000 mls/hr IV BOLUS ONE Stop: 04/26/20 08:09 Last Admin: 04/26/20 07:56 Dose: 1,000 mls/hr Documented by: VINICIUS Levothyroxine Sodium (Levothyroxine 75 Mcg Tablet) 75 mcg PO NOW ONE Stop: 04/26/20 06:01 Last Admin: 04/26/20 08:38 Dose: 75 mcg Documented by: JOE Lisinopril (Lisinopril 10 Mg Tablet) 10 mg PO NOW ONE Stop: 04/26/20 08:18 Last Admin: 04/26/20 08:34 Dose: 10 mg Documented by: JOE Metoclopramide HCl (Metoclopramide 10 Mg/2 Ml Inj) 10 mg IV NOW ONE Stop: 04/26/20 08:18 Last Admin: 04/26/20 08:33 Dose: 10 mg Documented by: JOE Metoprolol Succinate (Metoprolol Er 25 Mg Tablet) 25 mg PO NOW ONE Stop: 04/26/20 08:18 Last Admin: 04/26/20 08:34 Dose: 25 mg Documented by: JOE Ondansetron HCl (Ondansetron 4 Mg/2 Ml Inj) 4 mg IV NOW ONE Stop: 04/26/20 07:11 Last Admin: 04/26/20 07:56 Dose: 4 mg Documented by: VINICIUS Vital Signs Vital signs: Vital Signs - 8 hr 04/26/20 07:07 Temperature 97.8 F Pulse Rate 69 Respiratory Rate 24 Blood Pressure 180/92 H Pulse Oximetry 99 MDM - Nausea/Vomiting/Diarrhea Medical Records Attestation: I reviewed the patient's medical records. Lab Data Attestation: I reviewed the patient's lab results. Result diagrams: 04/26/20 07:45 04/26/20 07:45 Labs: Lab Results 04/26/20 04/26/20 04/26/20 Range/Units 07:45 07:45 07:45 WBC 5.3 (4.5-11.0) X10^3/uL RBC 3.96 L (4.5-5.9) X10^6/uL Hgb 11.6 L (13.5-17.5) g/dL Hct 35.7 L (41-53) % MCV 90.0 (80-100) fL MCH 29.2 (26-34) PG MCHC 32.5 (30-36) % RDW 14.7 (11.6-14.8) % Plt Count 140 L (150-400) X10^3/uL Neut % (Auto) 54.0 (50-75) % Lymph % (Auto) 36.9 (25-40) % Duchesne % (Auto) 6.3 (3-14) % Eos % (Auto) 2.1 (2-4) % Baso % (Auto) 0.7 (0-2) % Neut # (Auto) 2800 (6602-0303) /uL Lymph # (Auto) 1900 (0443-5810) /uL Duc[place]ne # (Auto) 300 (0-900) /uL Eos # (Auto) 100 (0-450) /uL Baso # (Auto) 0 (0-100) /uL PT 12.8 H (10.1-12.7) SECONDS INR 1.1 (0.9-1.3) APTT 31 (26.4-36.2) SECONDS Sodium 137 (137-145) mmol/L Potassium 3.7 (3.4-5.1) mmol/L Chloride 107 (98-107) mmol/L Carbon Dioxide 29 (22-32) mmol/L BUN 17 (9-20) mg/dL Creatinine 0.97 (0.66-1.25) mg/dL Estimated GFR > 60.0 (>60) mL/min BUN/Creatinine Ratio 17.5 (6-22) Glucose 94 (70-100) mg/dL Calcium 8.3 L (8.4-10.2) mg/dL Total Bilirubin 0.4 (0.2-1.3) mg/dL AST 34 (17-59) IU/L ALT 39 (<50) IU/L Alkaline Phosphatase 52 (38-126) U/L Troponin I (0.01-0.034) ng/mL Total Protein 5.8 L (6.3-8.2) g/dL Albumin 3.4 L (3.5-5.0) g/dL Globulin 2.4 (1.7-4.1) g/dL Albumin/Globulin Ratio 1.4 (1.0-2.8) SARS-CoV-2 (PCR) (Negative) Blood Type Antibody Screen 04/26/20 04/26/20 04/26/20 Range/Units 07:45 07:45 08:55 WBC (4.5-11.0) X10^3/uL RBC (4.5-5.9) X10^6/uL Hgb (13.5-17.5) g/dL Hct (41-53) % MCV (80-100) fL MCH (26-34) PG MCHC (30-36) % RDW (11.6-14.8) % Plt Count (150-400) X10^3/uL Neut % (Auto) (50-75) % Lymph % (Auto) (25-40) % Duchesne % (Auto) (3-14) % Eos % (Auto) (2-4) % Baso % (Auto) (0-2) % Neut # (Auto) (6266-5189) /uL Lymph # (Auto) (9823-9203) /uL Duchesne # (Auto) (0-900) /uL Eos # (Auto) (0-450) /uL Baso # (Auto) (0-100) /uL PT (10.1-12.7) SECONDS INR (0.9-1.3) APTT (26.4-36.2) SECONDS Sodium (137-145) mmol/L Potassium (3.4-5.1) mmol/L Chloride (98-107) mmol/L Carbon Dioxide (22-32) mmol/L BUN (9-20) mg/dL Creatinine (0.66-1.25) mg/dL Estimated GFR (>60) mL/min BUN/Creatinine Ratio (6-22) Glucose (70-100) mg/dL Calcium (8.4-10.2) mg/dL Total Bilirubin (0.2-1.3) mg/dL AST (17-59) IU/L ALT (<50) IU/L Alkaline Phosphatase (38-126) U/L Troponin I < 0.012 (0.01-0.034) ng/mL Total Protein (6.3-8.2) g/dL Albumin (3.5-5.0) g/dL Globulin (1.7-4.1) g/dL Albumin/Globulin Ratio (1.0-2.8) SARS-CoV-2 (PCR) Negative (Negative) Blood Type A Positive Antibody Screen Negative ECG Data Interpretation: Sinus rhythm at a rate of 70 LVH Normal axis Short [place] interval Inferior Q-waves consistent with prior inferior CO No acute EKG changes MDM Narrative Medical decision making narrative: 59-year-old gentleman with complex medical history with 12 hours of nausea and vomiting. Feeling better after fluids, Zofran and IV Reglan. No evidence of acute infection, bowel obstruction, DKA or other complications of hyperglycemia. No evidence of cardiac syndromes, renal failure or liver failure. I suspect the blood that he noticed this morning with simply a bit of esophageal irritation after 3 episodes of emesis rather than any acute GI bleed. This point he is safe for home discharge Discharge Plan Departure Patient Disposition: Home Clinical Impression: Acute vomiting Instructions: DI for Vomiting -- Adult Activity Restrictions/Additional Instructions: Thank you for coming in today Your blood work today was very reassuring. You felt better after receiving Zofran as well as Reglan and fluids. As the Reglan seem to be more effective for you this is what I am going to give you was and oral prescription. You can use it every 6 hours to help with nausea if it continues. This prescription was electronically transmitted to [facility] for you. The blood that you notice today I suspect is irritation from the vomiting prior rather than a sign of significant bleeding inside your gut. As you are on a blood thinner, if you do have more bleeding you do need to return to the emergency department. I hope you feel better Prescriptions: New metoclopramide HCl [Reglan] 10 mg tablet 10 mg PO Q6H PRN (Reason: nausea and vomiting) Qty: 20 RF: 0 No Action lisinopril 10 mg tablet 40 mg PO DAILY RF: 0 gabapentin 300 mg capsule 600 mg PO TID RF: 0 insulin glargine 100 unit/mL (3 mL) insulin pen 35 unit Sub-Q BID RF: 0 lorazepam 1 mg tablet 1 mg PO DAILY PRN (Reason: agitation) Qty: 10 RF: 5 divalproex [Depakote ER] 500 mg tablet extended release 24 hr See Rx Instructions PO .COMPLEX Qty: 360 RF: 3 fenofibrate 160 mg tablet 160 mg PO DAILY RF: 0 lurasidone 60 mg tablet 60 mg PO QPM Qty: 30 RF: 1 oxycodone 5 mg tablet 5 mg PO Q8H PRNRF: 0 metformin [Glucophage XR] 500 MG tablet extended release 24 hr 500 mg PO BIDCC Qty: 60 RF: 0 nitroglycerin [Nitrostat] 0.4 mg Tablet, Sublingual 0.4 mg Sublingual Q5 MIN PRN PRN (Reason: Chest Pain) RF: 0 atorvastatin 40 mg Tablet 40 mg PO BEDTIME RF: 0 levothyroxine [Synthroid] 75 mcg Tablet 75 mcg PO DAILY RF: 0 insulin aspart U-100 100 unit/mL Insulin Pen See Rx Instructions .ROUTE .COMPLEX RF: 0 aspirin 81 mg Tablet,Delayed Release (Dr/Ec) 81 mg PO DAILY RF: 0 Xarelto 20 mg Tablet 20 mg PO QPM RF: 0 hydrochlorothiazide 25 mg Tablet 25 mg PO DAILY RF: 0 metoprolol succinate [Toprol XL] 25 MG tablet extended release 24 hr 25 mg PO DAILY RF: 0 omeprazole 20 mg Capsule,Delayed Release(Dr/Ec) 20 mg PO DAILY RF: 0 tamsulosin [Flomax] 0.4 mg capsule 0.4 mg PO BEDTIME Qty: 14 RF: 0 ergocalciferol (vitamin D2) 1,250 mcg (50,000 unit) capsule 1,250 mcg PO QWEEK RF: 0 Referrals: Sandra Garland MD [Primary Care Provider] -
[2020-04-26 08:09] LABS: PTT Partial Thromboplastin Tim 31 SECONDS (26.4-36.2)
[2020-04-26 08:10] LABS: Alanine Aminotransferase 39 IU/L (<50); Albumin 3.4 g/dL (3.5-5.0); Albumin Globulin Ratio 1.4 (1.0-2.8); Alkaline Phosphatase 52 U/L (38-126); Aspartate Aminotransferase 34 IU/L (17-59); BUN Creatinine Ratio 17.5 (6-22); Bilirubin Total 0.4 mg/dL (0.2-1.3); Blood Urea Nitrogen 17 mg/dL (9-20); Calcium 8.3 mg/dL (8.4-10.2); Carbon Dioxide 29 mmol/L (22-32); Chloride 107 mmol/L (98-107); Estimated Glomerular Filt Rate > 60.0 mL/min (>60); Globulin 2.4 g/dL (1.7-4.1); Glucose 94 mg/dL (70-100); HEMOLYSIS 21 (0-50); Potassium 3.7 mmol/L (3.4-5.1); Sodium 137 mmol/L (137-145); Total Protein 5.8 g/dL (6.3-8.2)
[2020-04-26 08:26] LABS: Troponin I < 0.012 ng/mL (0.01-0.034)
[2020-04-26] MEDS: METOCLOPRAMIDE 10 MG/2 ML INJ IV (08:33)
[2020-04-26] MEDS: METOPROLOL ER 25 MG TABLET PO (08:34)
[2020-04-26] MEDS: lisinopriL 10 MG TABLET PO (08:34)
[2020-04-26] MEDS: LEVOTHYROXINE 75 MCG TABLET PO (08:38)
[2020-04-26 09:16] LABS: COVID19 -Nasal RAPID Negative (Negative)
[2020-04-26 09:44] VITALS: PULSE 68; O2SAT 98
[2020-04-26 09:45] VITALS: BP 145/88
== END 2020-04-26 09:48 | disposition home or self-care (01) ==
PROVIDERS: Emergency Provider Emergency Medicine; PCP Family Medicine
DX: R11.2 Nausea with vomiting, unspecified (principal); I25.10 Atherosclerotic heart disease of native coronary artery without angina pectoris; Z79.01 Long term (current) use of anticoagulants; E11.9 Type 2 diabetes mellitus without complications; I10 Essential (primary) hypertension; E78.5 Hyperlipidemia, unspecified; F25.9 Schizoaffective disorder, unspecified; E66.01 Morbid (severe) obesity due to excess calories; Z68.45 Body mass index [BMI] 70 or greater, adult; I26.99 Other pulmonary embolism without acute cor pulmonale; Z20.822 Contact with and (suspected) exposure to COVID-19
CPT/HCPCS: 36415; 80053; 84484; 85025; 85610; 85730; 86850; 86900; 86901; 87635; 93005; 93010; 96361; 96374; 96375; 99281; 99284; C9803; J2405; J2765

== ENCOUNTER → 2020-05-01 11:30 | Outpatient (CLI) | payer OTHER, SELFPAY ==
[2019-07-13 01:30] VITALS: BMI 42.5
[2020-05-01 12:05] LABS: Add Manual Diff / Slide Review NO; Basophils Absolute Auto 0 /uL (0-100); Basophils Percent Auto 0.3 % (0-2); Eosinophils Absolute Auto 100 /uL (0-450); Eosinophils Percent Auto 1.6 % (2-4); Hematocrit 37.7 % (41-53); Hemoglobin 12.4 g/dL (13.5-17.5); Lymphocytes Absolute Auto 1500 /uL (1100-4500); Lymphocytes Percent Auto 18.8 % (25-40); Mean Corpuscular HGB Conc 32.9 % (30-36); Mean Corpuscular Hemoglobin 29.5 PG (26-34); Mean Corpuscular Volume 89.7 fL (80-100); Monocytes Absolute Auto 400 /uL (0-900); Monocytes Percent Auto 5.5 % (3-14); Neutrophils Absolute Auto 6000 /uL (1500-7000); Neutrophils Percent Auto 73.8 % (50-75); Platelet Count 216 X10^3/uL (150-400); Red Cell Distribution Width 14.9 % (11.6-14.8); White Blood Cell Count 8.1 X10^3/uL (4.5-11.0)
[2020-05-01 12:11] LABS: Hemoglobin A1C% w Est Avg Glu 9.5 % (4.0-6.0)
[2020-05-01 12:26] LABS: Blood Urea Nitrogen 13 mg/dL (9-20); Carbon Dioxide 27 mmol/L (22-32); Chloride 105 mmol/L (98-107); Estimated Glomerular Filt Rate > 60.0 mL/min (>60); Glucose 236 mg/dL (70-100); HEMOLYSIS < 15 (0-50); Potassium 4.2 mmol/L (3.4-5.1); Sodium 136 mmol/L (137-145)
== END ==
LOC: LAB 11:33
PROVIDERS: PCP Family Medicine; Referring Provider Orthopaedic Surgery Adult Reconstructive Orthopaedic Surgery; Visit Provider Orthopaedic Surgery Adult Reconstructive Orthopaedic Surgery
DX: Z01.818 Encounter for other preprocedural examination (principal); R73.9 Hyperglycemia, unspecified; Z01.812 Encounter for preprocedural laboratory examination
CPT/HCPCS: 36415; 80048; 83036; 85025; 93005; 93010

== ENCOUNTER → 2020-05-06 08:32 | Outpatient (CLI) | payer OTHER, SELFPAY ==
[2019-07-13 01:30] VITALS: BMI 42.5
[2020-05-06 10:51] LABS: COVID19 -Nasal RAPID Negative (Negative)
== END ==
PROVIDERS: PCP Family Medicine; Visit Provider Physician Assistant
DX: Z20.822 Contact with and (suspected) exposure to COVID-19 (principal)
CPT/HCPCS: 87635

== ENCOUNTER 2020-05-08 08:16 | Day surgery (SDC) | payer OTHER, SELFPAY ==
[2019-07-13 01:30] VITALS: BMI 42.5
[2020-05-07 08:27] VITALS: BMI 47.5
[2020-05-08 08:48] VITALS: BP 161/91; PULSE 80; RESP 15; TEMP 36.4; O2SAT 97; BMI 44.9
--- NOTE | 2020-05-08 09:05 | SUR.PREOP ---
Per Dr. Pappas, surgery is being cancelled due to pt last dose of xarelto yesterday 05/07/20. pt instructed to call Dr. Pappas office to reschedule procedure for another date. pt voiced understanding. pt frusterated as he reports he wasn't told by his provider to hold his Xarelto.
--- NOTE | 2020-05-08 09:11 | SUR.PREOP ---
pt refused offers of nourishment x3. pt ambulated out of facility frustrated and upset.
== END 2020-05-08 08:20 | disposition home or self-care (01) ==
PROVIDERS: PCP Family Medicine; Referring Provider Family Medicine; Visit Provider Orthopaedic Surgery Adult Reconstructive Orthopaedic Surgery

== ENCOUNTER → 2020-05-13 09:55 | Outpatient (CLI) | payer OTHER, SELFPAY ==
[2019-07-13 01:30] VITALS: BMI 42.5
[2020-05-13 11:30] LABS: COVID19 -Nasal RAPID Negative (Negative)
== END ==
PROVIDERS: PCP Family Medicine; Visit Provider Physician Assistant
DX: Z01.812 Encounter for preprocedural laboratory examination (principal); Z20.822 Contact with and (suspected) exposure to COVID-19
CPT/HCPCS: 87635

== ENCOUNTER 2020-05-15 11:57 | Observation (INO) | payer OTHER, SELFPAY ==
[2019-07-13 01:30] VITALS: BMI 42.5
[2020-05-14 14:48] VITALS: BMI 47.5
[2020-05-15] VITALS (21 sets, daily range): BP systolic 127–181; BP diastolic 72–127; PULSE 72–88; RESP 15–26; TEMP 36.2–36.8; O2SAT 95–98; BMI 45.5
[2020-05-15] MEDS: LACTATED RINGERS 1,000 ML 42 ML IV (12:30)
[2020-05-15] MEDS: INSULIN REGULAR 100 UNIT/ML 3 ML VIAL SUBCUT (14:03)
--- NOTE | 2020-05-15 14:06 | PM.PREOP ---
Pre-operative Note COVID-19 COVID-19 status: Negative Result date/Date tested (Pos, Neg/Pending): 05/13/20 Interval Note History & Physical reviewed/Exam performed by Physician: Yes Changes to H&P: No H&P completed within 30 days and has changed as indicated here:: Left knee arthroscopy with partial medial meniscectomy
[2020-05-15] MEDS: CLINDAMYCIN 900 MG/50 ML PIGGYBACK 50 MG IV ×2 (14:32→21:59)
--- NOTE | 2020-05-15 14:45 | SUR.OPER ---
Supine on padded OR bed. Pillow under head, arms secured on padded armboards <90 degree abduction. Safety belt across torso. Non-operative leg secured with tape over blanket over lower leg. Operative leg secured in lateral knee positioner. Foam padded brace at thigh of operative leg.
[2020-05-15] MEDS: BUPIVACAINE 0.5% W/ EPI (PF) 30 ML VIAL INJ (15:11)
--- NOTE | 2020-05-15 15:27 | PM.OP.1 ---
Operative Date/Time/Diagnoses Date of procedure: 05/15/20 Time of procedure: 15:27 Pre-op diagnosis: left knee medial meniscus tear Post-op diagnosis: same Procedure & Clinicians Procedure: Left knee arthroscopy with partial medial meniscectomy Same procedure as scheduled: Yes Indications: left knee medial pain Surgeon: Ramon Pappas Anesthesia Type: General Operative Notes Findings: Diagnostic arthroscopy of a left knee was performed: Suprapatellar pouch was clear no plica bands. Medial lateral gutters were also clear. 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 Intercondylar notch had intact ACL and PCL. Lateral compartment was relatively well preserved grade 1 chondromalacia and intact lateral meniscus. Closure Type: primary Estimated Blood Loss (mL): 50 Tourniquet time (min): 10 Procedure in detail: Patient was met in the preoperative holding area where the site and side of surgery marked by . Informed consent was reviewed and signed in the preoperative holding area. All last minute questions were answered. Patient was then brought back in the operating room where he was induced under general anesthesia. A nonsterile tourniquet was then placed on left thigh and he was induced under general anesthesia. A surgical time-out was performed verifying the site and side of surgery as well as the name of the patient. The left leg was then exsanguinated using Esmarch and tourniquet was inflated 250 mm of mercury. A anterolateral portal incision was made to introduce the scope at which time a diagnostic arthroscopy was performed and the findings were as above. Next a anteromedial portal was made using a 11. Blade to introduce a probe of the medial meniscus was then probed and found to have a tear as well as to be unstable in portions. This point was noted that her tourniquet was a venous tourniquet the tourniquet was then let down. This improved visibility. Next a shaver was introduced and a shaver was used to debulk the medial meniscus back to a stable border. At this point of probe was then reintroduced to reprobed the medial meniscus was found to be stable. A chondroplasty was then also performed on the femoral condyle. The instruments were then removed and local anesthetic was injected into the knee and the portal sites were closed using 3-0 nylons. Sterile dressings were then placed followed by a Dank bandage. Complications: none Post-operative Condition: stable Disposition: same day surgery Plan for aftercare: Plan to discharge home today. Pain control with oxycodone. Avoid deep squatting twisting turning on the knee. Remove dressings in 3 days time okay shower over the incision in 3 days time to avoid soaking or submerging the incisions.
[2020-05-15] MEDS: fentaNYL 100 MCG/2 ML INJ IV ×4 (15:30→16:03)
[2020-05-15] MEDS: OXYCODONE IR 5 MG TABLET PO ×2 (15:34→19:57)
--- NOTE | 2020-05-15 15:50 | SUR.PHASEI ---
Pt complaining of chest pain at a 7/10 upon entering PACU, Dr Simon aware and wanting to wait a minute or two to see how pt reacts to Fentanyl. Dr Simon back now and stat ekg ordered, and labwork. Resp here and doing ekg now
--- NOTE | 2020-05-15 15:57 | P.PN_ITS ---
Subjective Subjective Date Patient Seen: 05/15/20 Time Patient Seen: 15:57 Interval history: Pt said he is having Chest pain post op in recovery room although he doesn't look like he is in any acute distress. He does point to his sternum. No nausea associated with it. No perspiration. His vitals are stable. He is not tachycardic. A 12 lead EKG was done here in the PACU and to me doesn't look like Acute Coronary Syndrome. He is in sinus rhythm and there is no ST elevation or depression. To be safe I have ordered the first set of Troponin I and a BNP. The surgeon has agreed to admit him and he personally consulted the Repaire[employer] Hel[employer] lemon picker to evaluate him. Disposition. Admit to the med/surg mace for ongoing work up by Internal Medicine service. Continue normal PACU care for post op knee arthroscopy as well. I explained this to Mr Pierre and he agrees with the plan. [facility] Exam Vital Signs (past 8 hours): - 05/15/20 12:41 05/15/20 15:24 05/15/20 15:28 Temperature 97.2 F L 98.1 F Pulse Rate 80 78 78 Respiratory Rate 16 16 16 Blood Pressure 181/100 H 136/72 131/75 Pulse Oximetry 98 96 95 05/15/20 15:33 05/15/20 15:38 05/15/20 15:48 Temperature Pulse Rate 77 77 78 Respiratory Rate 15 17 23 Blood Pressure 153/84 H 178/89 H 169/113 H Pulse Oximetry 96 97 96 Oxygen Delivery Method Room Air [facility] Medical History (Updated 05/11/20 @ 00:01 by ) Atypical chest pain CAD (coronary artery disease) Carpal tunnel syndrome of right wrist CHF (congestive heart failure) Chronic left shoulder pain Complex tear of medial meniscus of left knee as current injury COPD (chronic obstructive pulmonary disease) Diabetes type 2, controlled Diabetic neuropathy HTN (hypertension) Hyperlipidemia Insomnia Internal derangement of left knee [facility] current use of anticoagulant therapy Morbid obesity with body mass index (BMI) of 40.0 to 49.9 Myocardial infarction Obstructive sleep apnea of adult Pulmonary embolism Schizoaffective disorder, depressive type (03/17/11) Tardive dyskinesia Surgical History (Updated 05/07/20 @ 11:35 by Kell Malone RN) History of shoulder surgery Hx of CABG (~2008) Stented coronary artery (~2007) Family History Mother Coronary artery disease Father No problems noted. Social History marital status: unmarried,single details: lives with his parents household members: family lives independently: Yes caregiver/support person: Yes housing: house pets and animals: Yes Smoking Status: Former smoker alcohol intake: never substance use type: does not use Assessment & Plan Post-op Postoperative Procedures: Procedures Operation Date: 05/15/20 13:45 Actual Procedures Side Surgeon p Arthroscopy Knee with excision or repair as indicated Left Ramon Pappas MD
--- NOTE | 2020-05-15 15:58 | SUR.PHASEI ---
stat ekg viewed by dr woodard and he states is normal. Lab here now to draw blood and Dr Pappas by to talk with pt and dr woodard, decision made to admit pt. Pt vss, taking po fluids without problems earlier to take oral pain med and does not appear to be in excruciating pain due to calm relaxed demeanor.
[2020-05-15 16:58] LABS: Troponin I < 0.012 ng/mL (0.01-0.034)
--- NOTE | 2020-05-15 17:00 | SUR.PHASEI ---
Report given to Ayde HAMPTON. Pt transported up in stable condition
[2020-05-15 17:03] LABS: NT-proBNP (BNP-Adult 18+) 119 pg/mL (<125)
--- NOTE | 2020-05-15 17:30 | DI.RAD.S_ITS ---
PROCEDURE: XR CHEST 1V INDICATIONS: chest pain TECHNIQUE: One view of the chest was acquired. COMPARISON: [facility], CT, CT CHEST ABD PEL W CON, 04/07/2020, 11:32. [facility], CR, XR CHEST 1V, 03/25/2020, 3:43. FINDINGS: Surgical changes and devices: Sternotomy. Lungs and pleura: Lungs are clear. No pleural effusions or pneumothorax. Mediastinum: Mediastinal contours appear normal. Heart size is normal. Bones and chest wall: No suspicious bony lesions. Overlying soft tissues appear unremarkable. IMPRESSION: No acute cardiopulmonary disease. Dictated by: Abbie Donahue M.D. on 05/15/2020 at 18:20 Approved by: Abbie Donahue M.D. on 05/15/2020 at 18:24
[2020-05-15] MEDS: NITROGLYCERIN 0.4 MG SL TAB SL ×3 (17:37→17:55)
--- NOTE | 2020-05-15 17:44 | PM.HP.1 ---
History of Present Illness History of Present Illness Date Patient Seen: 05/15/20 Chief complaint: LEFT KNEE Narrative: Patient is a 59-year-old male with a history of coronary disease, status post coronary bypass graft, history of congestive heart failure, history of atypical chest pain, type 2 diabetes, hypertension, hyperlipidemia, morbid obesity, who underwent left knee arthroscopy. Patient states after his procedure he woke up with substernal chest pain. He describes the pain as 6/10 in intensity. The pain does not radiate. It is associated with shortness of breath. He has had some nausea. He denies any diaphoresis. He denies any prior history of chest pain with activity. He reports his last episode of chest pain was about 6 months ago. He has had a stress test which was done about 2 years ago. The patient was seen on the floor. A 12 lead EKG was obtained. It reveals sinus rhythm but no acute ST-T changes. Chest x-ray is pending in 1st set of cardiac enzymes are negative. The patient is receiving his 3rd dose of nitro, he will receive morphine for pain as well. The patient is admitted to the hospital for chest pain felt to be unstable angina and to rule out myocardial infarction. Patient History Medical History Atypical chest pain CAD (coronary artery disease) Carpal tunnel syndrome of right wrist CHF (congestive heart failure) Chronic left shoulder pain Complex tear of medial meniscus of left knee as current injury COPD (chronic obstructive pulmonary disease) Diabetes type 2, controlled Diabetic neuropathy HTN (hypertension) Hyperlipidemia Insomnia Internal derangement of left knee long-term current use of anticoagulant therapy Morbid obesity with body mass index (BMI) of 40.0 to 49.9 Myocardial infarction Obstructive sleep apnea of adult Pulmonary embolism Schizoaffective disorder, depressive type (03/17/11) Tardive dyskinesia Surgical History History of shoulder surgery Hx of CABG (~2008) Stented coronary artery (~2007) Family & Social History Family History Mother Coronary artery disease Father No problems noted. Social History: household members family lives independently Yes caregiver/support person Yes Tobacco & Substance use: Smoking Status Former smoker alcohol intake never alcohol intake frequency 0-2 drinks per day Substance Use Type does not use Meds Home Medications and Allergies Home Medications Medication Instructions Recorded Confirmed Type metformin [Glucophage XR] 1,000 mg PO BIDCC #60 tab 12/25/16 05/15/20 History atorvastatin 40 mg PO BEDTIME 10/12/17 05/15/20 History insulin aspart U-100 See Rx Instructions .ROUTE .COMPLEX 10/12/17 05/15/20 History levothyroxine [Synthroid] 75 mcg PO DAILY 10/12/17 05/15/20 History nitroglycerin [Nitrostat] 0.4 mg SUBLINGUAL Q5 MIN PRN PRN 10/12/17 05/15/20 History hydrochlorothiazide 25 mg PO DAILY 05/26/18 05/15/20 History metoprolol succinate [Toprol XL] 25 mg PO DAILY 05/26/18 05/15/20 History fenofibrate 160 mg tablet 160 mg PO DAILY 12/16/18 05/15/20 History Xarelto 20 mg PO QPM 02/16/19 05/15/20 History aspirin 81 mg PO DAILY 02/16/19 05/15/20 History insulin glargine 100 unit/mL (3 35 unit SUB-Q BID ml 08/25/19 05/15/20 History mL) subcutaneous pen gabapentin 300 mg capsule 600 mg PO TID cap 11/29/19 05/15/20 History ergocalciferol (vitamin D2) 1,250 1,250 mcg PO QWEEK 11/30/19 05/15/20 History mcg (50,000 unit) capsule lorazepam 1 mg tablet 1 mg PO DAILY PRN #10 tab 02/06/20 05/15/20 Rx metoclopramide HCl [Reglan] 10 mg PO Q6H PRN #20 tab 04/26/20 05/15/20 Rx divalproex 500 mg tablet,extended See Rx Instructions PO .COMPLEX 04/30/20 05/15/20 Rx release 24 hr #360 tab lurasidone 80 mg tablet 80 mg PO QPM #90 tab 04/30/20 05/15/20 Rx Lantus Solostar U-100 Insulin See Rx Instructions .ROUTE .COMPLEX 05/07/20 05/15/20 History aripiprazole 30 mg PO DAILY 05/07/20 05/15/20 History furosemide 80 mg PO DAILY 05/07/20 05/15/20 History insulin aspart U-100 [Novolog See Rx Instructions .ROUTE .COMPLEX 05/07/20 05/15/20 History U-100 Insulin aspart] isosorbide mononitrate 30 mg PO QAM 05/07/20 05/15/20 History lisinopril 40 mg PO DAILY 05/07/20 05/15/20 History simvastatin 40 mg PO DAILY 05/07/20 05/15/20 History oxycodone 5 mg PO Q6H PRN #30 cap 05/15/20 Rx Allergies Allergy/AdvReac Type Severity Reaction Status Date / Time Penicillins [PENICILLINS] Allergy Severe Swelling Verified 05/08/20 08:40 of Lip/Tongue/Throat quetiapine AdvReac Intermediate oversedation Verified 05/08/20 08:August Alluna Sleep AdvReac Severe Difficulty Uncoded 05/08/20 08:40 Swallowing Review of Systems Review of Systems ROS: Yes All systems reviewed with the patient and are negative except as otherwise documented Exam Vital Signs (past 8 hours): - 05/15/20 12:41 05/15/20 15:24 05/15/20 15:28 Temperature 97.2 F L 98.1 F Pulse Rate 80 78 78 Respiratory Rate 16 16 16 Blood Pressure 181/100 H 136/72 131/75 Pulse Oximetry 98 96 95 05/15/20 15:33 05/15/20 15:38 05/15/20 15:48 Temperature Pulse Rate 77 77 78 Respiratory Rate 15 17 23 Blood Pressure 153/84 H 178/89 H 169/113 H Pulse Oximetry 96 97 96 05/15/20 16:00 05/15/20 16:10 05/15/20 16:20 Temperature Pulse Rate 78 77 80 Respiratory Rate 18 21 18 Blood Pressure 166/94 H 166/101 H 156/127 H Pulse Oximetry 97 95 97 05/15/20 16:31 05/15/20 16:40 05/15/20 16:57 Temperature Pulse Rate 78 81 82 Respiratory Rate 22 26 H 20 Blood Pressure 173/88 H 170/89 H 167/87 H Pulse Oximetry 97 97 96 05/15/20 17:05 05/15/20 17:35 05/15/20 17:37 Temperature 98.1 F 98.3 F 98.3 F Pulse Rate 83 85 80 Respiratory Rate 19 20 Blood Pressure 171/93 H 164/91 H 164/91 H Pulse Oximetry 98 96 Oxygen Delivery Method Nasal Cannula Oxygen Flow Rate 0 Narrative Exam Narrative: Pleasant obese male lying in bed complaining of chest pain HEENT: Normocephalic atraumatic, extraocular muscles are intact, oropharynx is clear, neck is supple without adenopathy or thyromegaly Lungs: Decreased breath sounds but clear to auscultation Cardiac exam: Regular rate and rhythm normal S1-S2 with a 2/6 systolic ejection murmur Abdomen: Obese soft nontender nondistended without hepatosplenomegaly Extremities: 1+ edema left knee with Dank bandage in Neuro exam: Nonfocal Objective Labs Labs: Laboratory Results - last 24 hr 05/15/20 05/15/20 16:25 16:25 Troponin I < 0.012 NT-Pro-B Natriuret Pep 119 Assessment & Plan Assessment & Plan narrative: Impression 1. 59-year-old male with a history of coronary disease admitted to the hospital for chest pain following left knee arthroscopy -patient with a history of coronary disease, CABG in 2008, patient reports stents prior to his catheterization she last cardiac catheterization 2 years -initial set of troponins are negative at 0.012, will continue with serial troponins -chest x-ray shows cardiomegaly but no pleural effusions or pulmonary edema -EKG shows sinus rhythm with LVH, no acute ST T wave abnormality -will continue aspirin, statin, sublingual nitro, oxygen, and morphine -consider IV nitro if the patient continues to have recalcitrant chest pain, as long as there is no EKG abnormality will defer anticoagulation given recent surgery -will consult Cardiology tomorrow, consider stress test as well continue serial cardiac enzymes 2. Type 2 diabetes -will continue the patient's insulin, hold metformin as patient may require CT Angio to r/o PE -patient will be placed on correctional insulin as well -will obtain hemoglobin A1c while hospitalized 3. Hypertension -blood pressure remains LV -will continue DANK-inhibitor, Lasix, metoprolol 4. Schizophrenia -will continue the patient on Depakote, and Zyprexa -continue his usual home doses no psychosis at this point 5. Hyperlipidemia -continue fenofibrate -continue statin 6. History of congestive heart failure -given recurrent chest pain will obtain 2D echo -will continue DANK-inhibitor, Lasix, metoprolol Diabetic polyneuropathy -continue gabapentin 8. History of pulmonary emboli -patient previously on Xarelto, this is been held for 10 days DVT prophylaxis Will start Lovenox 40 mg daily Patient is a full code will note that his record accordingly Will rule the patient out for myocardial infarct and consider spiral CT to rule out PE and stress test tomorrow if pain persists
[2020-05-15 17:53] LABS: Add Manual Diff / Slide Review NO; Basophils Absolute Auto 0 /uL (0-100); Basophils Percent Auto 0.3 % (0-2); Eosinophils Absolute Auto 200 /uL (0-450); Eosinophils Percent Auto 2.8 % (2-4); Hematocrit 37.7 % (41-53); Hemoglobin 12.4 g/dL (13.5-17.5); Lymphocytes Absolute Auto 2500 /uL (1100-4500); Lymphocytes Percent Auto 38.3 % (25-40); Mean Corpuscular HGB Conc 32.8 % (30-36); Mean Corpuscular Hemoglobin 29.5 PG (26-34); Mean Corpuscular Volume 89.8 fL (80-100); Monocytes Absolute Auto 400 /uL (0-900); Monocytes Percent Auto 6.9 % (3-14); Neutrophils Absolute Auto 3300 /uL (1500-7000); Neutrophils Percent Auto 51.7 % (50-75); Platelet Count 233 X10^3/uL (150-400); Red Cell Distribution Width 15.8 % (11.6-14.8); White Blood Cell Count 6.4 X10^3/uL (4.5-11.0)
[2020-05-15 18:03] LABS: BUN Creatinine Ratio 14.8 (6-22); Blood Urea Nitrogen 17 mg/dL (9-20); Calcium 9.1 mg/dL (8.4-10.2); Carbon Dioxide 26 mmol/L (22-32); Chloride 108 mmol/L (98-107); Cholesterol 205 mg/dL (140-199); Estimated Glomerular Filt Rate > 60.0 mL/min (>60); Glucose 220 mg/dL (70-100); HDL Cholesterol 40 mg/dL (40-60); HEMOLYSIS 16 (0-50); LDL Cholesterol Calculated 106 mg/dL (<100); Potassium 4.6 mmol/L (3.4-5.1); Sodium 139 mmol/L (137-145); Triglycerides 295 mg/dL (35-150)
[2020-05-15] MEDS: MORPHINE 2 MG/ML INJ IV ×2 (18:03→18:21)
[2020-05-15] MEDS: RIVAROXABAN 10 MG TABLET 20 MG PO (18:58)
[2020-05-15] MEDS: INSULIN ASPART 100 UNIT/ML INSULN PEN SUBCUT (18:59)
[2020-05-15 19:17] LABS: Troponin I < 0.012 ng/mL (0.01-0.034)
[2020-05-15] MEDS: PANTOPRAZOLE 40 MG VIAL IV (19:57)
[2020-05-15] MEDS: MAG HYDROX/ALUM/SIMETH 30 ML UDC PO (19:57)
[2020-05-15] MEDS: LORazepam 1 MG TABLET PO (19:57)
--- NOTE | 2020-05-15 20:16 | PC.ADMIT ---
[id number] Admission Note: The patient,Luis E Pierre,59 y/o, was given written information regarding hospital policies, unit procedures and contact persons. Patient's smoking status: Former smoker. Pt arrived from PACU via stretcher at 1720. Trans pt to bed. Reports chest chest pain subsided but L. Knee pain remains. Oriented to room and call system. Mariella c/d/i. Dr. Mandujano in for rounding and pt reports 610 chest pain. Chest pain order set ordered by MD. Chest XR, Trop, EKG complete. Chest pain down to 2/10 post nitro SL x3 and MS 2mg x2. Chest pain returned at approx 1945 report 07/20. Hospitalist notified, Protonix, Maalox, oxycodone and Ativan administered per jun. CPOX on, CPAP set-up by R.T. Pt verbalized he will call if chest pain worsens or continues. Vital Signs - 8 hr 05/15/20 12:41 05/15/20 15:24 05/15/20 15:28 Temperature 97.2 F L 98.1 F Pulse Rate 80 78 78 Respiratory Rate 16 16 16 Blood Pressure 181/100 H 136/72 131/75 Pulse Oximetry 98 96 95 05/15/20 15:33 05/15/20 15:38 05/15/20 15:48 Temperature Pulse Rate 77 77 78 Respiratory Rate 15 17 23 Blood Pressure 153/84 H 178/89 H 169/113 H Pulse Oximetry 96 97 96 05/15/20 16:00 05/15/20 16:10 05/15/20 16:20 Temperature Pulse Rate 78 77 80 Respiratory Rate 18 21 18 Blood Pressure 166/94 H 166/101 H 156/127 H Pulse Oximetry 97 95 97 05/15/20 16:31 05/15/20 16:40 05/15/20 16:57 Temperature Pulse Rate 78 81 82 Respiratory Rate 22 26 H 20 Blood Pressure 173/88 H 170/89 H 167/87 H Pulse Oximetry 97 97 96 05/15/20 17:05 05/15/20 17:35 05/15/20 17:37 Temperature 98.1 F 98.3 F 98.3 F Pulse Rate 83 85 80 Respiratory Rate 19 20 Blood Pressure 171/93 H 164/91 H 164/91 H Pulse Oximetry 98 96 05/15/20 17:46 05/15/20 17:55 05/15/20 18:05 Temperature 98.1 F Pulse Rate 86 86 88 Respiratory Rate 20 Blood Pressure 133/73 155/83 H 155/80 H Pulse Oximetry 96 05/15/20 19:05 05/15/20 20:02 Temperature 97.9 F 97.8 F Pulse Rate 77 78 Respiratory Rate 18 19 Blood Pressure 158/85 H 155/90 H Pulse Oximetry 98 95
[2020-05-15] MEDS: INSULIN GLARGINE 100 UNIT/ML 3ML PEN 35 UNIT SUBCUT (21:58)
[2020-05-15] MEDS: SODIUM CHLORIDE 0.9% FLUSH 10 ML IV (21:59)
[2020-05-15] MEDS: GABAPENTIN 600 MG TABLET PO (22:00)
[2020-05-15] MEDS: ACETAMINOPHEN 325 MG TABLET 975 MG PO (22:00)
[2020-05-15] MEDS: ATORVASTATIN 20 MG TABLET 80 MG PO (22:01)
[2020-05-15] MEDS: DOCUSATE 100 MG CAPSULE PO (22:01)
[2020-05-15] MEDS: ASPIRIN EC 81 MG TABLET PO (22:01)
[2020-05-15] MEDS: DIVALPROEX ER 250 MG TAB 1500 MG PO (22:02)
[2020-05-15] MEDS: SODIUM CHLORIDE 0.9% 250 ML 21 ML IV (22:03)
[2020-05-16] VITALS (8 sets, daily range): BP systolic 113–165; BP diastolic 58–83; PULSE 70–77; RESP 18–24; TEMP 36.1–36.9; O2SAT 93–97
[2020-05-16] MEDS: OXYCODONE IR 5 MG TABLET PO ×3 (00:30→13:17)
--- NOTE | 2020-05-16 02:46 | PC.NURSE ---
During initial start of shift assessment, pt complained of pain 6/10 in L knee only, not mentioning chest pain. Pt in no apparent distress, lying still, no pain associated behaviors present. This RN inquired next about chest pain and pt responded Oh yeah, I have chest pain and stated four out of ten before this RN could prompt the pain scale question. When requested to indicate area of pain, pt pointed vaguely to mid sternum.
[2020-05-16] MEDS: ISOSORBIDE MONONITRATE ER 30 MG TABLET PO (06:33)
[2020-05-16] MEDS: CLINDAMYCIN 900 MG/50 ML PIGGYBACK 50 MG IV (06:33)
[2020-05-16] MEDS: LEVOTHYROXINE 75 MCG TABLET PO (06:33)
[2020-05-16 06:55] LABS: Hematocrit 33.8 % (41-53); Hemoglobin 11.3 g/dL (13.5-17.5); Mean Corpuscular HGB Conc 33.5 % (30-36); Mean Corpuscular Volume 89.6 fL (80-100); Platelet Count 181 X10^3/uL (150-400); Red Blood Cell Count 3.78 X10^6/uL (4.5-5.9); Red Cell Distribution Width 15.8 % (11.6-14.8); White Blood Cell Count 5.2 X10^3/uL (4.5-11.0)
[2020-05-16 07:12] LABS: Troponin I < 0.012 ng/mL (0.01-0.034)
[2020-05-16] MEDS: FUROSEMIDE 40 MG TABLET 80 MG PO (08:27)
[2020-05-16] MEDS: METOPROLOL ER 25 MG TABLET PO (08:27)
[2020-05-16] MEDS: ASPIRIN EC 81 MG TABLET PO ×2 (08:27→21:07)
[2020-05-16] MEDS: ARIPiprazole 10 MG TABLET 30 MG PO (08:27)
[2020-05-16] MEDS: SIMVASTATIN 40 MG TABLET PO (08:28)
[2020-05-16] MEDS: GABAPENTIN 600 MG TABLET PO ×3 (08:28→21:07)
[2020-05-16] MEDS: DOCUSATE 100 MG CAPSULE PO ×2 (08:28→21:07)
[2020-05-16] MEDS: DIVALPROEX ER 250 MG TAB 500 MG PO (08:28)
[2020-05-16] MEDS: lisinopriL 20 MG TABLET 40 MG PO (08:29)
[2020-05-16] MEDS: ACETAMINOPHEN 325 MG TABLET 975 MG PO ×3 (08:29→21:06)
[2020-05-16] MEDS: INSULIN ASPART 100 UNIT/ML INSULN PEN SUBCUT ×3 (08:34→16:38)
[2020-05-16] MEDS: INSULIN GLARGINE 100 UNIT/ML 3ML PEN 35 UNIT SUBCUT ×2 (08:46→21:15)
[2020-05-16] MEDS: FENOFIBRATE 160 MG TABLET PO (08:46)
[2020-05-16] MEDS: SODIUM CHLORIDE 0.9% FLUSH 10 ML IV ×3 (08:52→22:38)
--- NOTE | 2020-05-16 10:32 | PT.IIE ---
Current Diagnoses Complex tear of medial meniscus, current injury, left knee, initial encounter (05/15/20) Surgery Performed Operation Date: 05/15/20 13:45 Actual Procedures p Arthroscopy Knee with excision or repair as indicated(Left) - Ramon Pappas MD Surgical History (Last Reviewed 05/16/20 @ 12:04 by Katarina Trejo PA-C) History of shoulder surgery Hx of CABG (~2008) Stented coronary artery (~2007) Medical History (Last Reviewed 05/16/20 @ 12:04 by Katarina Trejo PA-C) Atypical chest pain CAD (coronary artery disease) Carpal tunnel syndrome of right wrist CHF (congestive heart failure) Chronic left shoulder pain Complex tear of medial meniscus of left knee as current injury COPD (chronic obstructive pulmonary disease) Diabetes type 2, controlled Diabetic neuropathy HTN (hypertension) Hyperlipidemia Insomnia Internal derangement of left knee correction current use of anticoagulant therapy Morbid obesity with body mass index (BMI) of 40.0 to 49.9 Myocardial infarction Obstructive sleep apnea of adult Pulmonary embolism Schizoaffective disorder, depressive type (03/17/11) Tardive dyskinesia Physical Therapy Inpatient Evaluation/Re-Eval M1 PT/OT-IP Prior Functional Status Start: 05/16/20 11:55 Freq: NEEDED Status: Active Protocol: Document 05/16/20 10:32 AB (Rec: 05/16/20 12:17 AB [id number]) Medical Review Prior Functional Status Medical History Reviewed Yes Communication able to make needs known Mobility and Gait stated that he is independent with all mobilities and ambulation without AD Social History Household Members family Living Arrangements House Number of Floors (Floors) Two Floors Number of Stairs To Enter/Railing? ramp to enter 10 steps with bilateral rails to get to bedroom level Home Environment Standard Height Toilet,Tub/ Shower,Ramp Home Equipment Four Wheel Walker,Straight Cane,Shower Seat with Backrest ,Hand Held Shower,Grab Bars Near Toilet,Grab Bars In Shower Additional Social History Comment stated that he lives with is parents and his parents cannot assist him M2 PT-IP Current Condition Start: 05/16/20 11:55 Freq: NEEDED Status: Active Protocol: Document 05/16/20 10:32 AB (Rec: 05/16/20 12:17 AB [id number]) Physical Therapy Current Condition Current Condition Evaluation Date 05/16/20 Treatment Diagnosis s/p L knee arthroscopy w/ partial medical meniscectomy; difficulty in walk Onset Date 05/15/20 Precautions Other Precautions From ortho MD's note: Avoid deep squatting twisting turning on the knee M3 PT-IP Subjective Start: 05/16/20 11:55 Freq: NEEDED Status: Active Protocol: Document 05/16/20 10:32 AB (Rec: 05/16/20 12:17 AB [id number]) Subjective Physical Therapy Visit Type Type Initial Evaluation Visit Start Time 10:32 Visit Stop Time 10:50 Total Visit Minutes 18 Number of DIAMOND SAWER Visits 18 Physical Therapy Visit Comments Patient Comments pt is agreeable to do PT Therapy Pain Assessment Pain When Pain Assessed At Rest Pain Present Pain Present Pain Reported Location Left Knee Intensity 4 Scale Used Numeric (0 - 10) Pain Management Techniques Distraction,Modification of Treatment,Re-positioning, Timing of Activity with Medications M4 PT-IP Mobility and Gait Start: 05/16/20 11:55 Freq: NEEDED Status: Active Protocol: Document 05/16/20 10:32 AB (Rec: 05/16/20 12:17 AB [id number]) PT-Bed Mobility Assessment Supine to Sit Supine to Sit Standby Assistance,Bedrails Sit to Supine Sit to Supine Standby Assistance PT-Transfer Assessment Sit to and From Stand Sit to and from Stand Moderate Assistance,1 Person Assistance,Use of Upper Extremities Equipment Transfer Assistive Device Gait Belt,Front Wheeled Walker Orthotic/Prosthetic Devices or Brace: No Comments Mobility Comments completed supine to sit SBA with use of bed rail. pt was able to sit on EOB SBA. completed sit to stand mod A. attempted to ambulate and was only able to take 2 steps using FWW and pt has to sit back down. c/o of L knee giving out. educated pt on quads activation and use of FWW for support and agreed to ambulate again and completed ~ 6 ft mod A using FWW. pt requested to go back to bed and completed with SBA. positioned in bed. call light and table placed within reach . informed pt regarding current level of assistance and d/c plans. Pt stated the he might have to go to SNF. informed regarding observation criteria and stated that [facility] his stay. Gait Assessment Gait Gait Assistance Required: Moderate Assistance,1 Person Assist Distance (Feet) 6 Able to Maintain Weight Bearing Status Yes During Gait Assistive Devices Assistive Device Gait Belt,Front Wheeled Walker Orthotic/Prosthetic Devices or Brace: No Gait Deviations General Gait Pattern Antalgic,Decreased Stride Length,Decreased Feet Clearance,Step-to Gait Factors Limiting Gait Function Factors Limiting Gait Function Decreased Activity Tolerance, Decreased Strength,Limited Range of Motion,Pain,Poor Balance,Poor Safety Awareness PT-Balance Assessment Sitting Balance and Reactions Static Sitting Balance Ability Good Dynamic Sitting Balance Ability Good Standing Balance and Reactions Static Standing Balance Ability Fair Dynamic Standing Balance Ability Poor Device Used FWW M5 PT-IP Objective Assessments Start: 05/16/20 11:55 Freq: NEEDED Status: Active Protocol: Document 05/16/20 10:32 AB (Rec: 05/16/20 12:17 AB [id number]) Orientation Orientation/Cognition Level of Alertness Alert Orientation Name,Place,Situation Safety Awareness Understands Safety Issues Memory Description No Deficits Noted Strength Lower Extremity Strength Assessment Left Impaired Hip 3+/5 Knee 3+/5 Coordination Assessment Gross Coordination Gross Coordination WNL Sensation Assessment Sensation Gross Sensation WNL Muscle Tone Muscle Tone WNL Yes M6 PT-IP Treatment Start: 05/16/20 11:55 Freq: NEEDED Status: Active Protocol: Document 05/16/20 10:32 AB (Rec: 05/16/20 12:17 AB [id number]) Physical Therapy Treatment Education Education Provided Precautions,Safety M7 PT-IP Assessment and Plan Start: 05/16/20 11:55 Freq: NEEDED Status: Active Protocol: Document 05/16/20 10:32 AB (Rec: 05/16/20 12:17 AB [id number]) PT Summary Assessment and Plan Potential Rehabilitation Potential Good Status of Condition at Evaluation Stable Summary Impairments Pain,ROM,Strength,Balance, Coordination,Sensation,Tone, Cognition,Bed Mobility, Transfers,Gait,Activity Tolerance Assessment Summary pt requirig mod A with transfers/ambulation using FWW and will not have any assistance at home. d/c plan depending on progress but at this time will require SNF rehab. will continue to assess progress. Goals Bed Mobility Goal Independent Transfer Goal Independent,Front Wheeled Walker Gait Goal Independent,Front Wheel Walker Gait Distance 100 Other Goals improve ambulation using 4WW 150 ft mod I up/down 10 steps using B rails SBA Days to Meet Goals 5 Frequency of Treatment Frequency Of Treatment Twice a Day Treatment Plan Physical Therapy Treatment Plan Bed Mobility Training,Transfer Training,Gait Training, Therapeutic Exercise,Balance Retraining,Post Op Education, Discharge Planning,Hot or Cold Pack,Neuromuscular Re-ed, Coordination Retraining,Manual Therapy Recommendations To Nursing Amount of Assist Needed 1 Person Assist Discharge Recommendations PT Discharge Recommendations SNF Rehab Equipment Needed for Home Before FWW if pt goes home and not Discharge safe with 4WW Transportation Needs at Discharge Wheelchair/Cabulance
--- NOTE | 2020-05-16 10:32 | PT.IIE ---
Current Diagnoses Complex tear of medial meniscus, current injury, left knee, initial encounter (05/15/20) Surgery Performed Operation Date: 05/15/20 13:45 Actual Procedures p Arthroscopy Knee with excision or repair as indicated(Left) - Ramon Pappas MD Surgical History (Last Reviewed 05/16/20 @ 12:04 by Katarina Trejo PA-C) History of shoulder surgery Hx of CABG (~2008) Stented coronary artery (~2007) Medical History (Last Reviewed 05/16/20 @ 14:48 by Katarina Trejo PA-C) Atypical chest pain CAD (coronary artery disease) Carpal tunnel syndrome of right wrist CHF (congestive heart failure) Chronic left shoulder pain Complex tear of medial meniscus of left knee as current injury COPD (chronic obstructive pulmonary disease) Diabetes type 2, controlled Diabetic neuropathy HTN (hypertension) Hyperlipidemia Insomnia Internal derangement of left knee correction current use of anticoagulant therapy Morbid obesity with body mass index (BMI) of 40.0 to 49.9 Myocardial infarction Obstructive sleep apnea of adult Pulmonary embolism Schizoaffective disorder, depressive type (03/17/11) Tardive dyskinesia Physical Therapy Inpatient Evaluation/Re-Eval M1 PT/OT-IP Prior Functional Status Start: 05/16/20 11:55 Freq: NEEDED Status: Active Protocol: Document 05/16/20 10:32 AB (Rec: 05/16/20 12:17 AB [id number]) Medical Review Prior Functional Status Medical History Reviewed Yes Communication able to make needs known Mobility and Gait stated that he is independent with all mobilities and ambulation without AD Social History Household Members family Living Arrangements House Number of Floors (Floors) Two Floors Number of Stairs To Enter/Railing? ramp to enter 10 steps with bilateral rails to get to bedroom level Home Environment Standard Height Toilet,Tub/ Shower,Ramp Home Equipment Four Wheel Walker,Straight Cane,Shower Seat with Backrest ,Hand Held Shower,Grab Bars Near Toilet,Grab Bars In Shower Additional Social History Comment stated that he lives with is parents and his parents cannot assist him M2 PT-IP Current Condition Start: 05/16/20 11:55 Freq: NEEDED Status: Active Protocol: Document 05/16/20 10:32 AB (Rec: 05/16/20 12:17 AB [id number]) Physical Therapy Current Condition Current Condition Evaluation Date 05/16/20 Treatment Diagnosis s/p L knee arthroscopy w/ partial medical meniscectomy; difficulty in walk Onset Date 05/15/20 Precautions Other Precautions From ortho MD's note: Avoid deep squatting twisting turning on the knee M3 PT-IP Subjective Start: 05/16/20 11:55 Freq: NEEDED Status: Active Protocol: Document 05/16/20 10:32 AB (Rec: 05/16/20 12:17 AB [id number]) Subjective Physical Therapy Visit Type Type Initial Evaluation Visit Start Time 10:32 Visit Stop Time 10:50 Total Visit Minutes 18 Number of BOTTLE WASHER MACHINE Visits 0 Physical Therapy Visit Comments Patient Comments pt is agreeable to do PT Therapy Pain Assessment Pain When Pain Assessed At Rest Pain Present Pain Present Pain Reported Location Left Knee Intensity 4 Scale Used Numeric (0 - 10) Pain Management Techniques Distraction,Modification of Treatment,Re-positioning, Timing of Activity with Medications M4 PT-IP Mobility and Gait Start: 05/16/20 11:55 Freq: NEEDED Status: Active Protocol: Document 05/16/20 10:32 AB (Rec: 05/16/20 12:17 AB [id number]) PT-Bed Mobility Assessment Supine to Sit Supine to Sit Standby Assistance,Bedrails Sit to Supine Sit to Supine Standby Assistance PT-Transfer Assessment Sit to and From Stand Sit to and from Stand Moderate Assistance,1 Person Assistance,Use of Upper Extremities Equipment Transfer Assistive Device Gait Belt,Front Wheeled Walker Orthotic/Prosthetic Devices or Brace: No Comments Mobility Comments completed supine to sit SBA with use of bed rail. pt was able to sit on EOB SBA. completed sit to stand mod A. attempted to ambulate and was only able to take 2 steps using FWW and pt has to sit back down. c/o of L knee giving out. educated pt on quads activation and use of FWW for support and agreed to ambulate again and completed ~ 6 ft mod A using FWW. pt requested to go back to bed and completed with SBA. positioned in bed. call light and table placed within reach . informed pt regarding current level of assistance and d/c plans. Pt stated the he might have to go to SNF. informed regarding observation criteria and stated that [facility] stay. Gait Assessment Gait Gait Assistance Required: Moderate Assistance,1 Person Assist Distance (Feet) 6 Able to Maintain Weight Bearing Status Yes During Gait Assistive Devices Assistive Device Gait Belt,Front Wheeled Walker Orthotic/Prosthetic Devices or Brace: No Gait Deviations General Gait Pattern Antalgic,Decreased Stride Length,Decreased Feet Clearance,Step-to Gait Factors Limiting Gait Function Factors Limiting Gait Function Decreased Activity Tolerance, Decreased Strength,Limited Range of Motion,Pain,Poor Balance,Poor Safety Awareness PT-Balance Assessment Sitting Balance and Reactions Static Sitting Balance Ability Good Dynamic Sitting Balance Ability Good Standing Balance and Reactions Static Standing Balance Ability Fair Dynamic Standing Balance Ability Poor Device Used FWW M5 PT-IP Objective Assessments Start: 05/16/20 11:55 Freq: NEEDED Status: Active Protocol: Document 05/16/20 10:32 AB (Rec: 05/16/20 12:17 AB [id number]) Orientation Orientation/Cognition Level of Alertness Alert Orientation Name,Place,Situation Safety Awareness Understands Safety Issues Memory Description No Deficits Noted Strength Lower Extremity Strength Assessment Left Impaired Hip 3+/5 Knee 3+/5 Coordination Assessment Gross Coordination Gross Coordination WNL Sensation Assessment Sensation Gross Sensation WNL Muscle Tone Muscle Tone WNL Yes M6 PT-IP Treatment Start: 05/16/20 11:55 Freq: NEEDED Status: Active Protocol: Document 05/16/20 10:32 AB (Rec: 05/16/20 12:17 AB [id number]) Physical Therapy Treatment Education Education Provided Precautions,Safety M7 PT-IP Assessment and Plan Start: 05/16/20 11:55 Freq: NEEDED Status: Active Protocol: Document 05/16/20 10:32 AB (Rec: 05/16/20 12:17 AB [id number]) PT Summary Assessment and Plan Potential Rehabilitation Potential Good Status of Condition at Evaluation Stable Summary Impairments Pain,ROM,Strength,Balance, Coordination,Sensation,Tone, Cognition,Bed Mobility, Transfers,Gait,Activity Tolerance Assessment Summary pt requirig mod A with transfers/ambulation using FWW and will not have any assistance at home. d/c plan depending on progress but at this time will require SNF rehab. will continue to assess progress. Goals Bed Mobility Goal Independent Transfer Goal Independent,Front Wheeled Walker Gait Goal Independent,Front Wheel Walker Gait Distance 100 Other Goals improve ambulation using 4WW 150 ft mod I up/down 10 steps using B rails SBA Days to Meet Goals 5 Frequency of Treatment Frequency Of Treatment Twice a Day Treatment Plan Physical Therapy Treatment Plan Bed Mobility Training,Transfer Training,Gait Training, Therapeutic Exercise,Balance Retraining,Post Op Education, Discharge Planning,Hot or Cold Pack,Neuromuscular Re-ed, Coordination Retraining,Manual Therapy Recommendations To Nursing Amount of Assist Needed 1 Person Assist Discharge Recommendations PT Discharge Recommendations SNF Rehab Equipment Needed for Home Before FWW if pt goes home and not Discharge safe with 4WW Transportation Needs at Discharge Wheelchair/Cabulance
--- NOTE | 2020-05-16 11:26 | DI.ECHO.S_ITS ---
Echocardiogram Repor :: 1960 Age: 59 yrs BP: 127/74 mmHg: :Reason For Study: CHEST PAIN : :Ordering Physician: MADONNA : :RUFINO Performed By: Meghna Lozada : :Referring: RUFINO PEACOCK : + + Interpretation Summary Technically difficult study limiting valve and endothelial visualization: 1) Mildly increased left ventricular thickness (concentric) with normal size and normal systolic function (EF 60-65%). 2) Basal inferior wall appears hypokinetic. There are no other obvious focal wall motion abnormalities noted but poor endocardial definition reduces the sensitivity for the detection of such. 3) Mildly increased right ventricular size with mildly reduced function. 3) There is mild mitral regurgitation. 4) Compared to the Echo done 06/04/2019, LVEF has improved from 50-55% to 60- 65% on this study. Procedure: A two-dimensional transthoracic echocardiogram with color flow and Doppler was performed. The study quality was technically difficult. Comparison is made with the echocardiogram of 06/04/2019. A contrast injection of Definity was performed to improve assessment of LV function. Contrast was injected into an intravenous site in the right arm. Patient denied any symptoms after the use of Definity. The patient was in sinus rhythm with heart rates between 67-76 bpm during the exam. Left Ventricle: The left ventricle is normal in size. There is mild concentric left ventricular hypertrophy. The ejection fraction is estimated to be 60-65%. There are no obvious focal wall motion abnormalities noted but poor endocardial definition reduces the sensitivity for the detection of such. There is basal inferior wall hypokinesis. Right Ventricle: The right ventricle is mildly dilated. Right ventricular systolic function is mildly reduced. Atria: The left atrium is mildly dilated. Right atrial size is normal. There is no Doppler evidence for an interatrial shunt. Mitral Valve: The mitral valve leaflets appear mildly thickened, but open well. There is mild mitral annular calcification. There is mild mitral regurgitation. Aortic Valve: The aortic valve is slightly calcified. The aortic valve is trileaflet. The aortic valve opens well. There is no aortic valve stenosis. No aortic regurgitation is present. Pulmonic Valve: The pulmonic valve leaflets are thin and pliable; valve motion is normal. There is no pulmonic valvular regurgitation. Great Vessels: The aortic root is normal size. The dimensions of the ascending aorta are normal. The inferior vena cava was not well visualized. Pericardium/ Pleura There is no pericardial effusion. There is no pleural effusion. MMode/2D Measurements & Calculations LVIDd: 5.1 cm LVOT diam: 2.0 cm LVIDs: 3.6 cm Ao root diam: 3.4 cm FS: 28.3 % asc Aorta Diam: 3.1 cm EPSS: 0.75 cm Ao Arch Diam (Prox Trans): 2.8 cm IVSd: 1.3 cm LVPWd: 1.5 cm LV boyer. diameter/BSA (cm/m^2): 1.9 LV sys. diameter/BSA (cm/m^2): 1.3 LA A2 area: 26.5 cm2 RA long axis: 5.2 cm LA A4 area: 23.2 cm2 RA area: 18.4 cm2 LA length (vol): 5.4 cm RA vol: 55.7 ml LA vol: 97.2 ml RA : 20.5 ml/m2 LA vol index: 35.8 ml/m2 RVD1 (basal): 4.5 cm TAPSE: 1.4 cm Doppler Measurements & Calculations Ao V2 max: 156.7 cm/sec LVOT Max Norman: 97.8 cm/sec Ao V2 mean: 104.8 cm/sec LV V1 max P.8 mmHg Ao max P.8 mmHg LV V1 VTI: 19.2 cm Ao mean P.0 mmHg ALLEGRA(I,D): 2.0 cm2 Ao V2 VTI: 28.3 cm ALLEGRA(V,D): 1.9 cm2 sev ratio: 0.68 ALLEGRA indexed to BSA (cm^2/m^2): 0.75 MV E max norman: 53.9 cm/sec PA V2 max: 81.3 cm/sec MV A max norman: 73.6 cm/sec PA V2 mean: 56.2 cm/sec MV E/A: 0.73 PA mean P.5 mmHg Med Peak E' Norman: 6.3 cm/sec PA pr(Accel): 37.9 mmHg E/E' med: 8.6 Lat Peak E' Norman: 9.7 cm/sec E/E' lat: 5.6 E/e' average: 7.1 MV dec time: 0.26 sec SV(LVOT): 57.6 ml Reading Physician:01:53 PM
--- NOTE | 2020-05-16 11:45 | DI.CT.S_ITS ---
PROCEDURE: CT ANGIO CHEST PE PROTOCOL INDICATIONS: r/o PE. Short of breath post knee surgery TECHNIQUE: After the administration of intravenous contrast, 2 mm thick sections acquired from the pulmonary apices to the posterior costophrenic angles. 3-dimensional maximum intensity projection (MIP) coronal and sagittal reformats were then acquired through the thorax. For radiation dose reduction, the following was used: automated exposure control, adjustment of mA and/or kV according to patient size. COMPARISON: [facility], CT, CT CHEST ABD PEL W CON, 04/07/2020, 11:32. [facility], CR, XR CHEST 1V, 05/15/2020, 17:49. FINDINGS: Image quality: Excellent. Pulmonary arteries: Nonocclusive thrombus identified in segmental and subsegmental pulmonary arteries supplying the anteromedial segment of the left lower lobe and subsegmental pulmonary artery branches supplying the lateral segment of the right lower lobe. Lungs and pleura: Lungs are clear. No pleural effusions or pneumothorax. Central and peripheral airways are patent. Mediastinum: Heart size is normal, without pericardial effusion. Atherosclerotic calcifications are noted in the aorta, great vessels and the coronary vasculature. Postsurgical changes compatible prior CABG procedure. No mediastinal or hilar adenopathy. Thoracic aorta is normal in caliber and enhancement. Esophagus is normal in caliber, without hiatal hernia. Bones and chest wall: No suspicious bony lesions. Ribs and thoracic spine appear intact throughout. Thyroid gland is normal No axillary or supraclavicular adenopathy. Abdomen: Visualized upper abdominal solid organs appear normal in the early arterial phase of enhancement. IMPRESSION: 1. Small pulmonary emboli involving the segmental and subsegmental arteries of the anteromedial segment of the left lower lobe and subsegmental arteries of the lateral segment of the right lower lobe. 2. No lung consolidation or pleural effusions. F 3. No pulmonary edema. Dictated by: Latosha Turner MD, PhD on 05/16/2020 at 12:27 Approved by: Latosha Turner MD, PhD on 05/16/2020 at 12:38
--- NOTE | 2020-05-16 11:56 | P.PN_ITS ---
Subjective Subjective Date Patient Seen: 05/16/20 Time Patient Seen: 11:57 Interval history: POD #1 s/p Left knee arthroscopy with partial medial meniscectomy with Dr. Pappas. Pain controlled with Oxycodone 5 mg in bed, but not well controlled when out of bed. After his procedure he woke up with substernal chest pain. Dr. Mandujano was consulted for cardiac workup. The patient is admitted to the hospital for chest pain felt to be unstable angina and to rule out myocardial infarction. He reports his last episode of chest pain was about 6 months ago. He has had a s tress test which was done about 2 years ago. A 12 lead EKG was obtained revealed sinus rhythm but no acute ST-T changes. Cardiac enzymes are negative. Exam Vital Signs (past 8 hours): - 05/16/20 08:00 05/16/20 08:27 05/16/20 08:29 Temperature 97.0 F L Pulse Rate 75 75 75 Respiratory Rate 18 Blood Pressure 124/65 124/65 125/65 Pulse Oximetry 97 05/16/20 08:57 Temperature Pulse Rate 75 Respiratory Rate Blood Pressure 123/70 Pulse Oximetry Oxygen Delivery Method Room Air Oxygen Flow Rate 0 Narrative Exam Narrative: Patient lying on side in bed in NAD. He is alert and oriented X3. Dressing on left knee is CDI, sofia wrap in place. SCDs on and functioning. Calves are soft, compressible, and nontender bilaterally. SILT throughout BLEs. Objective Labs Result Diagrams: 05/16/20 06:18 05/15/20 16:45 Labs: Laboratory Results - last 24 hr 05/15/20 05/15/20 05/15/20 16:25 16:25 16:45 WBC 6.4 RBC 4.20 L Hgb 12.4 L Hct 37.7 L MCV 89.8 MCH 29.5 MCHC 32.8 RDW 15.8 H Plt Count 233 Neut % (Auto) 51.7 Lymph % (Auto) 38.3 Appling % (Auto) 6.9 Eos % (Auto) 2.8 Baso % (Auto) 0.3 Neut # (Auto) 3300 Lymph # (Auto) 2500 Appling # (Auto) 400 Eos # (Auto) 200 Baso # (Auto) 0 Sodium Potassium Chloride Carbon Dioxide BUN Creatinine Estimated GFR BUN/Creatinine Ratio Glucose Calcium Troponin I < 0.012 NT-Pro-B Natriuret Pep 119 Triglycerides Cholesterol LDL Cholesterol, Calc HDL Cholesterol 05/15/20 05/15/20 05/15/20 16:45 16:45 18:30 WBC RBC Hgb Hct MCV MCH MCHC RDW Plt Count Neut % (Auto) Lymph % (Auto) Appling % (Auto) Eos % (Auto) Baso % (Auto) Neut # (Auto) Lymph # (Auto) Appling # (Auto) Eos # (Auto) Baso # (Auto) Sodium 139 Potassium 4.6 Chloride 108 H Carbon Dioxide 26 BUN 17 Creatinine 1.15 Estimated GFR > 60.0 BUN/Creatinine Ratio 14.8 Glucose 220 H Calcium 9.1 Troponin I < 0.012 NT-Pro-B Natriuret Pep Cancelled Triglycerides 295 H Cholesterol 205 H LDL Cholesterol, Calc 106 H HDL Cholesterol 40 05/16/20 05/16/20 06:18 06:18 WBC 5.2 RBC 3.78 L Hgb 11.3 L Hct 33.8 L MCV 89.6 MCH 30.0 MCHC 33.5 RDW 15.8 H Plt Count 181 Neut % (Auto) Lymph % (Auto) Appling % (Auto) Eos % (Auto) Baso % (Auto) Neut # (Auto) Lymph # (Auto) Appling # (Auto) Eos # (Auto) Baso # (Auto) Sodium Potassium Chloride Carbon Dioxide BUN Creatinine Estimated GFR BUN/Creatinine Ratio Glucose Calcium Troponin I < 0.012 NT-Pro-B Natriuret Pep Triglycerides Cholesterol LDL Cholesterol, Calc HDL Cholesterol [facility] Medical History Atypical chest pain CAD (coronary artery disease) Carpal tunnel syndrome of right wrist CHF (congestive heart failure) Chronic left shoulder pain Complex tear of medial meniscus of left knee as current injury COPD (chronic obstructive pulmonary disease) Diabetes type 2, controlled Diabetic neuropathy HTN (hypertension) Hyperlipidemia Insomnia Internal derangement of left knee senior care current use of anticoagulant therapy Morbid obesity with body mass index (BMI) of 40.0 to 49.9 Myocardial infarction Obstructive sleep apnea of adult Pulmonary embolism Schizoaffective disorder, depressive type (03/17/11) Tardive dyskinesia Surgical History History of shoulder surgery Hx of CABG (~2008) Stented coronary artery (~2007) Family History Mother Coronary artery disease Father No problems noted. Social History marital status: unmarried,single details: lives with his parents household members: family lives independently: Yes caregiver/support person: Yes housing: house pets and animals: Yes Smoking Status: Former smoker alcohol intake: never substance use type: does not use Assessment & Plan Post-op Postoperative Procedures: Procedures Operation Date: 05/15/20 13:45 Actual Procedures Side Surgeon p Arthroscopy Knee with excision or repair as indicated Left Ramon Pappas MD Patient is doing well from an orthopedic standpoint. Oxycodone 10 mg available for severe pain. Appreciate hospitalist management. Patient will be getting a stress test tomorrow. Quality VTE Deep Vein Thrombosis/Pulmonary Embolism Present on Admission: No
[2020-05-16] MEDS: ONDANSETRON 4 MG ODT PO (13:19)
--- NOTE | 2020-05-16 15:18 | PT.IPTN ---
Current Diagnoses Complex tear of medial meniscus, current injury, left knee, initial encounter (05/15/20) Surgery Performed Operation Date: 05/15/20 13:45 Actual Procedures p Arthroscopy Knee with excision or repair as indicated(Left) - Ramon Pappas MD Physical Therapy Treatment Note M2 PT-IP Current Condition Start: 05/16/20 11:55 Freq: NEEDED Status: Active Protocol: Document 05/16/20 10:32 AB (Rec: 05/16/20 12:17 AB [id number]) Physical Therapy Current Condition Current Condition Evaluation Date 05/16/20 Treatment Diagnosis s/p L knee arthroscopy w/ partial medical meniscectomy; difficulty in walk Onset Date 05/15/20 Precautions Other Precautions From ortho MD's note: Avoid deep squatting twisting turning on the knee M3 PT-IP Subjective Start: 05/16/20 11:55 Freq: NEEDED Status: Active Protocol: Document 05/16/20 15:00 CLB (Rec: 05/16/20 15:41 CLB [id number]) Subjective Physical Therapy Visit Type Type Treatment Note Visit Start Time 15:00 Visit Stop Time 15:18 Total Visit Minutes 18 Number of ELECTRONIC ENGRAVER Visits 1 Physical Therapy Visit Comments Patient Comments pt is agreeable to do PT Therapy Pain Assessment Pain When Pain Assessed At Rest Pain Present Pain Present Pain Reported Location Left Knee Intensity 7 Scale Used 10/10 after activity Pain Management Techniques Distraction,Modification of Treatment,Re-positioning, Timing of Activity with Medications M4 PT-IP Mobility and Gait Start: 05/16/20 11:55 Freq: NEEDED Status: Active Protocol: Document 05/16/20 15:00 CLB (Rec: 05/16/20 15:41 CLB [id number]) PT-Bed Mobility Assessment Supine to Sit Supine to Sit Standby Assistance,Bedrails Sit to Supine Sit to Supine Standby Assistance PT-Transfer Assessment Sit to and From Stand Sit to and from Stand Minimal Assistance,1 Person Assistance,Use of Upper Extremities Equipment Transfer Assistive Device Gait Belt,Front Wheeled Walker Orthotic/Prosthetic Devices or Brace: No Comments Mobility Comments Pt able to get to EOB SBA with use of bedrails and elevated HOB. Pt then required SBA to scoot to EOB. Pt performed seated knee etx/flx. Pt stood with cues to push off from bed standing Min A. Pt ambulated ~6ft w/FWW/CGA then required a seated rest break due to feeling his knee would buckle. Pt then stood Min A and ambulated ~8ft to window seat and sat down. Pt then stood Mod A from window bench and ambulated ~15 ft to right side of bed. Pt sat CGA to slow descent and cues to put out left leg for safety. Pt able to lift leg back onto bed for sit-supine SBA. Left pt in bed with all needs within reach. SCD's on. Gait Assessment Gait Gait Assistance Required: Contact Guard Assist,1 Person Assist Distance (Feet) 30 Able to Maintain Weight Bearing Status Yes During Gait Assistive Devices Assistive Device Gait Belt,Front Wheeled Walker Orthotic/Prosthetic Devices or Brace: No Gait Deviations General Gait Pattern Antalgic,Decreased Stride Length,Decreased Feet Clearance,Step-to Gait Factors Limiting Gait Function Factors Limiting Gait Function Decreased Activity Tolerance, Decreased Strength,Limited Range of Motion,Pain,Poor Balance,Poor Safety Awareness M5 PT-IP Objective Assessments Start: 05/16/20 11:55 Freq: NEEDED Status: Active Protocol: Document 05/16/20 10:32 AB (Rec: 05/16/20 12:17 AB [id number]) Orientation Orientation/Cognition Level of Alertness Alert Orientation Name,Place,Situation Safety Awareness Understands Safety Issues Memory Description No Deficits Noted Strength Lower Extremity Strength Assessment Left Impaired Hip 3+/5 Knee 3+/5 Coordination Assessment Gross Coordination Gross Coordination WNL Sensation Assessment Sensation Gross Sensation WNL Muscle Tone Muscle Tone WNL Yes M6 PT-IP Treatment Start: 05/16/20 11:55 Freq: NEEDED Status: Active Protocol: Document 05/16/20 15:00 CLB (Rec: 05/16/20 15:41 CLB [id number]) Physical Therapy Treatment Exercises Exercises Seated Knee Flexion/Extension Education Education Provided Precautions,Safety M7 PT-IP Assessment and Plan Start: 05/16/20 11:55 Freq: NEEDED Status: Active Protocol: Document 05/16/20 15:00 CLB (Rec: 05/16/20 15:41 CLB [id number]) PT Summary Assessment and Plan Potential Rehabilitation Potential Good Status of Condition at Evaluation Stable Summary Impairments Pain,ROM,Strength,Balance, Coordination,Sensation,Tone, Cognition,Bed Mobility, Transfers,Gait,Activity Tolerance Assessment Summary Pt required Min A-CGA for safety with all mobility, pt requires seated rest breaks during 30ft of ambulation with FWW due to feeling his left leg is going to buckle. Pt reports 7/10 pain during tx and 10/10 pain at end of tx of left knee and 3/10 pain in chest. Pt will not have assist at home and may require SNF rehab to improve functional mobility before returning home . Goals Bed Mobility Goal Independent Transfer Goal Independent,Front Wheeled Walker Gait Goal Independent,Front Wheel Walker Gait Distance 100 Other Goals improve ambulation using 4WW 150 ft mod I up/down 10 steps using B rails SBA Days to Meet Goals 5 Frequency of Treatment Frequency Of Treatment Twice a Day Treatment Plan Physical Therapy Treatment Plan Bed Mobility Training,Transfer Training,Gait Training, Therapeutic Exercise,Balance Retraining,Post Op Education, Discharge Planning,Hot or Cold Pack,Neuromuscular Re-ed, Coordination Retraining,Manual Therapy Other Recommendations and Next Treatment gait with 4WW, increase gait, Focus stairs if able. Recommendations To Nursing Amount of Assist Needed 1 Person Assist Discharge Recommendations PT Discharge Recommendations SNF Rehab Equipment Needed for Home Before FWW if pt goes home and not Discharge safe with 4WW Transportation Needs at Discharge Wheelchair/Cabulance
--- NOTE | 2020-05-16 15:26 | CM.IDA ---
Initial DCP Assessment Note Patient is a 59 yo male, resident of [place]. Patient underwent elective Left knee arthroscopy with partial medial meniscectomy yesterday w/Dr Pappas and complained of chest pain upon awakening from this procedure, hospitalist consult ordered PCP: Sandra Garland Payer: [facility]/ [place] Reviewed chart. Patient w/significant medical history to include coronary disease, status post coronary bypass graft, history of congestive heart failure, type 2 diabetes, morbid obesity and Schizoaffective disorder, depressive type. Patient established w/ psychiatrist Dr Jovel. According to discussion in multidisciplinary rounds, staff concerned that w/patient's psychiatric history, there could be a psychosomatic component to patient's complaint of chest pain, however, full w/u being completed, especially in the setting of significant heart history. Stress test scheduled for 05.17.20 PT Laureen currently recommending SNF based on how patient is moving today, explains to this SHOT PEEN OPERATOR that patient lives w/elderly parents and they are not able to assist him psychically. Met w/patient, explained role and reviewed DCP. Patient says he is indp at baseline, reiterates that parents will not be able to care for him, he is the primary cg for them. Patient agreeable to [facility], this SHOT PEEN OPERATOR explains auth request process through [employer], and patient says you can also use [facility]. Patient then begins talking about his outpatient therapies at [facility] in [place], covered by his [place]. Referral discussed w/ September at [facility], will review and f/u w/ DCP team. DCP team will need to follow closely, there is a chance that patient will make functional improvement and return home w/parents and services (?) upon DC GUANACO Morales Discharge Planning/Care Management CM Discharge Assessment Start: 05/16/20 15:22 Freq: Status: Active Protocol: Document 05/16/20 15:22 GENESIS (Rec: 05/16/20 15:26 GENESIS [id number]) Discharge Planning Assessment Assigned Web Design Instructor GUANACO Ambriz DPOA/Assigned Designee Name Glenn Pierre, father Nighat Pierre, mother Contact Information [phone] Advance Directives? No History Provided By Patient,Medical Record Prior Living Arrangements House Household Members family Type of transporation used prior to Relies on Others admit Willing to Return to Facility? Yes: Asks about [place] [facility] Independent with ADL's Yes Is patient alert and oriented? Yes Comment N/A Comment PCP: Sandra Garland established with Psychiatrist, Dr Jovel Comment He is the primary caregiver of his parents. Transportation Arrangement Family, or friends Referrals Initiated Fpc Additional Comment Per patient's request
--- NOTE | 2020-05-16 16:41 | P.PN_ITS ---
Subjective Subjective Date Patient Seen: 05/16/20 Interval history: The patient is a 59-year-old male who was admitted to the hospital yesterday for chest pain which developed following left knee arthroscopy. Patient continues to complain of chest pain. He has no shortness of breath. He denies any nausea or diaphoresis. Despite continuous pain for the past 12 hours his cardiac enzymes and EKGs remain unremarkable the patient does have a prolonged history of cardiac disease including a CABG in 2007, hypertension, hyperlipidemia, and morbid obesity. Patient recently was taken off his Xarelto for 5 days to prepare for surgery. He does have a history of DVT PE in the past. Exam Vital Signs (past 8 hours): - 05/16/20 08:57 05/16/20 12:15 05/16/20 15:40 Temperature 97.5 F L 98.2 F Pulse Rate 75 70 75 Respiratory Rate 24 18 Blood Pressure 123/70 165/83 H 113/58 L Pulse Oximetry 96 95 Oxygen Delivery Method Room Air Oxygen Flow Rate 0 Narrative Exam Narrative: Obese male lying in bed Lungs: Decreased breath sounds but clear to auscultation Cardiac exam: Regular rate and rhythm normal S1-S2 Abdomen: Soft nontender nondistended Extremities: Left knee with an Dank bandage in place Objective Labs Result Diagrams: 05/16/20 06:18 05/15/20 16:45 Labs: Laboratory Results - last 24 hr 05/15/20 05/15/20 05/15/20 16:25 16:25 16:45 WBC 6.4 RBC 4.20 L Hgb 12.4 L Hct 37.7 L MCV 89.8 MCH 29.5 MCHC 32.8 RDW 15.8 H Plt Count 233 Neut % (Auto) 51.7 Lymph % (Auto) 38.3 Lanier % (Auto) 6.9 Eos % (Auto) 2.8 Baso % (Auto) 0.3 Neut # (Auto) 3300 Lymph # (Auto) 2500 Lanier # (Auto) 400 Eos # (Auto) 200 Baso # (Auto) 0 Sodium Potassium Chloride Carbon Dioxide BUN Creatinine Estimated GFR BUN/Creatinine Ratio Glucose Calcium Troponin I < 0.012 NT-Pro-B Natriuret Pep 119 Triglycerides Cholesterol LDL Cholesterol, Calc HDL Cholesterol 05/15/20 05/15/20 05/15/20 16:45 16:45 18:30 WBC RBC Hgb Hct MCV MCH MCHC RDW Plt Count Neut % (Auto) Lymph % (Auto) Lanier % (Auto) Eos % (Auto) Baso % (Auto) Neut # (Auto) Lymph # (Auto) Lanier # (Auto) Eos # (Auto) Baso # (Auto) Sodium 139 Potassium 4.6 Chloride 108 H Carbon Dioxide 26 BUN 17 Creatinine 1.15 Estimated GFR > 60.0 BUN/Creatinine Ratio 14.8 Glucose 220 H Calcium 9.1 Troponin I < 0.012 NT-Pro-B Natriuret Pep Cancelled Triglycerides 295 H Cholesterol 205 H LDL Cholesterol, Calc 106 H HDL Cholesterol 40 05/16/20 05/16/20 06:18 06:18 WBC 5.2 RBC 3.78 L Hgb 11.3 L Hct 33.8 L MCV 89.6 MCH 30.0 MCHC 33.5 RDW 15.8 H Plt Count 181 Neut % (Auto) Lymph % (Auto) Lanier % (Auto) Eos % (Auto) Baso % (Auto) Neut # (Auto) Lymph # (Auto) Lanier # (Auto) Eos # (Auto) Baso # (Auto) Sodium Potassium Chloride Carbon Dioxide BUN Creatinine Estimated GFR BUN/Creatinine Ratio Glucose Calcium Troponin I < 0.012 NT-Pro-B Natriuret Pep Triglycerides Cholesterol LDL Cholesterol, Calc HDL Cholesterol [facility] Medical History Atypical chest pain CAD (coronary artery disease) Carpal tunnel syndrome of right wrist CHF (congestive heart failure) Chronic left shoulder pain Complex tear of medial meniscus of left knee as current injury COPD (chronic obstructive pulmonary disease) Diabetes type 2, controlled Diabetic neuropathy HTN (hypertension) Hyperlipidemia Insomnia Internal derangement of left knee senior living current use of anticoagulant therapy Morbid obesity with body mass index (BMI) of 40.0 to 49.9 Myocardial infarction Obstructive sleep apnea of adult Pulmonary embolism Schizoaffective disorder, depressive type (03/17/11) Tardive dyskinesia Surgical History History of shoulder surgery Hx of CABG (~2008) Stented coronary artery (~2007) Family History Mother Coronary artery disease Father No problems noted. Social History marital status: unmarried,single details: lives with his parents household members: family lives independently: Yes caregiver/support person: Yes housing: house pets and animals: Yes Smoking Status: Former smoker alcohol intake: never substance use type: does not use Assessment & Plan Assessment & Plan narrative: Impression 1. 59-year-old male admitted to the hospital for continuous progressive chest pain CT angio revealed pulmonary emboli -patient with a history of PE, off Xarelto for 5 days -Xarelto restarted last evening -CT angio reveals Small pulmonary emboli involving the segmental and subsegmental arteries of the anteromedial segment of the left lower lobe and subsegmental arteries of the lateral segment of the right lower lobe. 2. No lung consolidation or pleural effusions. F 3. No pulmonary edema. 2. Patient with a long history of coronary artery disease, status post CABG and multiple stents -will obtain stress test tomorrow to rule out recurrent ischemia -continue beta-ida, statin, isosorbide -await repeat echo 3. Type 2 diabetes -blood sugars slightly elevated here in the hospital -will continue basal bolus insulin -metformin on hold given need for CT scan 4. Hypertension -continue beta-ida, and lisinopril 5. Schizophrenia Continue usual antipsychotic medication Once stress test returns, if negative patient will likely be able to discharge home on Xarelto plus his usual home medication Quality VTE Deep Vein Thrombosis/Pulmonary Embolism Present on Admission: No
[2020-05-16] MEDS: RIVAROXABAN 10 MG TABLET 20 MG PO (16:46)
[2020-05-16] MEDS: OXYCODONE IR 10 MG TABLET PO ×2 (16:46→21:06)
--- NOTE | 2020-05-16 16:59 | OT.IP.EVAL ---
Current Diagnoses Complex tear of medial meniscus, current injury, left knee, initial encounter (05/15/20) Surgery Performed Operation Date: 05/15/20 13:45 Actual Procedures p Arthroscopy Knee with excision or repair as indicated(Left) - Ramon Pappas MD Past Medical History (Last Reviewed 05/16/20 @ 14:48 by Katarina Trejo PA-C) Atypical chest pain CAD (coronary artery disease) Carpal tunnel syndrome of right wrist CHF (congestive heart failure) Chronic left shoulder pain Complex tear of medial meniscus of left knee as current injury COPD (chronic obstructive pulmonary disease) Diabetes type 2, controlled Diabetic neuropathy HTN (hypertension) Hyperlipidemia Insomnia Internal derangement of left knee half-way current use of anticoagulant therapy Morbid obesity with body mass index (BMI) of 40.0 to 49.9 Myocardial infarction Obstructive sleep apnea of adult Pulmonary embolism Schizoaffective disorder, depressive type (03/17/11) Tardive dyskinesia Surgical History (Last Reviewed 05/16/20 @ 12:04 by Katarina Trejo PA-C) History of shoulder surgery Hx of CABG (~2008) Stented coronary artery (~2007) Occupational Therapy Inpatient Evaluation/Re-Eval M1 PT/OT-IP Prior Functional Status Start: 05/16/20 17:23 Freq: NEEDED Status: Active Protocol: Document 05/16/20 16:31 [facility] (Rec: 05/16/20 18:14 [facility] [id number]) Medical Review Prior Functional Status Medical History Reviewed Yes Communication able to make needs known Mobility and Gait stated that he is independent with all mobilities and ambulation without AD Activities of Daily Living and IADL's Pt states prior to knee surgery able to do all his ADL and IADL needs. Pt prior drives his parents to appointments, gets their prescriptions and groceries. Social History Household Members family Living Arrangements House Number of Floors (Floors) Two Floors Number of Stairs To Enter/Railing? ramp to enter 10 steps with bilateral rails to get to bedroom level Home Environment Standard Height Toilet,Tub/ Shower,Ramp Home Equipment Four Wheel Walker,Straight Cane,Shower Seat with Backrest ,Hand Held Shower,Grab Bars Near Toilet,Grab Bars In Shower Additional Social History Comment stated that he lives with is parents and his parents cannot assist him M2 OT-IP Current Condition Start: 05/16/20 17:23 Freq: Status: Active Protocol: Document 05/16/20 16:31 [facility] (Rec: 05/16/20 18:14 [facility] [id number]) Occupational Therapy Current Condition Current Condition Evaluation Date 05/16/20 Treatment Diagnosis PE and s/p partial medial meniscectomy Diagnosis Onset Date 05/15/20 M3 OT- IP Subjective and Pain Start: 05/16/20 17:23 Freq: Status: Active Protocol: Document 05/16/20 16:31 [facility] (Rec: 05/16/20 18:14 [facility] [id number]) OT- Subjective Occupational Therapy Visit Type Type Initial Evaluation Visit Start Time 16:31 Visit Stop Time 16:59 Total Visit Minutes 28 Occupational Therapy Visit Comments Patient Comments Pt agreed to get up for OT eval. Patient/Caregiver Goals Pt wanting to go to skilled rehab as feel that his endurance is only at 10% of his normal. OT Pain Assessment Pain When Pain Assessed At Rest Pain Present Pain Present Pain Reported Location Left Knee Intensity 10 Scale Used Numeric (0 - 10) M4 OT- IP ADL's Start: 05/16/20 17:23 Freq: Status: Active Protocol: Document 05/16/20 16:31 [facility] (Rec: 05/16/20 18:14 [facility] [id number]) OT [id number] Comments OT Self-Feeding Comments Not at meal time. OT ADL-Grooming General Evaluation Grooming Ability Standby Assistance Areas Needing Assistance Retrieving/Set-up of Grooming Items Comments OT Grooming Comments Able to do while standing at the sink. OT ADL-Oral Care General Eval Oral Care Ability Standby Assistance OT ADL-Dressing General Eval Lower Body Dressing Ability Moderate Assistance Areas Needing Assistance Socks Comments OT Dressing Comments Pt not able to shiraz/doff sock on his left foot. Pt able to shiraz/doff his pants while seated on the edge of the bed. Pt needing CGA when standing while pulling up his pants over his hips. Pt would benefit from use of sock aid, to practice tomorrow. OT ADL-Toileting Comments OT Toileting Comments Pt not having to use the toilet at this time. OT ADL-Bathing Comments OT Bathing Comments Pt wanting to try to shower tomorrow. M5 OT- IP IADL's Start: 05/16/20 17:23 Freq: Status: Active Protocol: Document 05/16/20 16:31 [facility] (Rec: 05/16/20 18:14 [facility] [id number]) OT-Instrumental Activities of Daily Living Home Safety Awareness Awareness of Need for Assistance at Home Good Awareness Ability to Problem Solve Emergency Able to Problem Solve Situations Medication Management Medication Management No Deficits Identified Money Management Money Management No Deficits Identified Meal Preparation Meal Preparation Caregiver Provides Assist Meal Preparation Comments Pt's mother cooks. M6 OT- IP Functional Cognition Start: 05/16/20 17:23 Freq: Status: Active Protocol: Document 05/16/20 16:31 [facility] (Rec: 05/16/20 18:14 [facility] [id number]) Cognitive Factors Limiting Selfcare Function Cognitive Ability Level of Alertness Alert Patient Orientation Name,Place,Situation Attention Span Ability Capable of Focused Attention, Capable of Sustained Attention Safety Awareness Underestimates Need for Assistance Cognitive Comments Cognitive Assessment Comments Pt needing reminder to use the walker after brushing his teeth. OT- Vision and Hearing OT- Hearing Assessment OT- Hearing Assessment WFL OT- Vision Assessment Visual Acuity Glasses All The Time M7 OT- IP Mobility and Balance Start: 05/16/20 17:23 Freq: Status: Active Protocol: Document 05/16/20 16:31 [facility] (Rec: 05/16/20 18:14 [facility] [id number]) OT- Bed Mobility Assessment Rolling Type of Rolling Roll to Left Level of Assistance Standby Assistance Supine to Sit Supine to Sit Assist Standby Assistance,Bedrails Sit to Supine Sit to Supine Assist Standby Assistance,Bedrails OT-Transfer Assessment Sit to and From Stand Sit to and from Stand Standby Assistance Transfers Transfer Ability Standby Assistance,Contact Guard Assistance Technique Transfer Destination Bed Transfer Technique Stand Pivot Devices Transfer Assistive Devices Gait Belt,Front Wheeled Walker Comments Mobility Comments Pt use of bed rail to help get to the edge of the bed. Pt SBA /CGA to stand to FWW. Pt able to walk to the sink with FWW and only able to tolerate brushing his teeth and then getting too tired and having to go back to the bed. OT- Balance Assessment Sitting Balance and Reactions Static Sitting Balance Ability Normal Dynamic Sitting Balance Ability Good Standing Balance and Reactions Static Standing Balance Ability Fair M8 OT- IP Objective Assessments Start: 05/16/20 17:23 Freq: Status: Active Protocol: Document 05/16/20 16:31 [facility] (Rec: 05/16/20 18:14 [facility] [id number]) OT Gross Range of Motion Upper Extremity Range of Motion ROM Impairments Grossly WFL OT- Coordination Assessment Upper Extremity Finger to Nose Test Within Functional Limits OT-Muscle Tone Assessment Muscle Tone WNL Yes M9 OT- IP Assessment and Plan Start: 05/16/20 17:23 Freq: Status: Active Protocol: Document 05/16/20 16:31 [facility] (Rec: 05/16/20 18:14 [facility] [id number]) OT Summary Assessment and Plan Potential Rehabilitation Potential Good Analytic Complexity at Evaluation Low Summary OT Impairments Pain,Functional Cognition, Functional Mobility,Grooming, Dressing,Toileting,Bathing, Toilet Transfers,Shower Transfers,Activity Tolerance Progress Towards Goals Progressing Toward Goals Assessment Summary Pt low complexity and here due to recent left partial medial meniscectomy and now having PE. Pt main barriers are decreased activity tolerance- only able to tolerate standing to brush his teeth before tiring, steps, and needing assist for dressing for left lower body. . Pt would benefit from skilled rehab as prior pt took care of his parents and did all the IADl needs. In addition pt feel that he is only at 10% of his prior endurance. Goals Grooming Goal Independent Dressing Goal Independent Toileting Goal Independent Bathing Goal Independent Toilet Transfer Goal Independent Shower Transfer Goal Independent Patient/Caregiver Education Goal Demonstrate Post-Op Precautions Days to Meet Goals 10 Frequency of Treatment Frequency Of Treatment Once a Day Treatment Plan OT Treatment Plan ADL Training,Functional Cognition Training,Functional Mobility,Patient/Family Education,Discharge Planning Other Treatment Recommendations and Next shower and use of lower body Treatment Focus dresing equipment Discharge Recommendations OT Discharge Recommendations SNF Rehab Other Discharge Recommendations If not able to go to skilled rehab home with assist and home health Home Equipment Needs FWW Transportation Needs at Discharge Private Vehicle,Wheelchair/ Cabulance
[2020-05-16] MEDS: ONDANSETRON 4 MG/2 ML INJ IV (17:40)
[2020-05-16] MEDS: DIVALPROEX ER 250 MG TAB 1500 MG PO (21:06)
[2020-05-16] MEDS: ATORVASTATIN 20 MG TABLET 80 MG PO (21:07)
[2020-05-17 00:42] VITALS: BP 128/69; PULSE 93; RESP 20; TEMP 36.2; O2SAT 93
--- NOTE | 2020-05-17 01:16 | PC.NURSE ---
Patient in NAD upon assessment at start of shift. C/O mild pain to left knee relieved by oxycodone administered on evening shift. No mention of chest pain until inquiry and then states oh yes, my chest hurts too. States pressure upon further questioning 05/22. Declines offered morphine or nitro. He reports having this a few years ago and the outcome was skeletal in nature. No changes to telemetry noted. NPO for stress test. Call light in reach.
[2020-05-17 04:05] VITALS: BP 142/83; PULSE 76; RESP 16; TEMP 36.4; O2SAT 95
[2020-05-17] MEDS: ISOSORBIDE MONONITRATE ER 30 MG TABLET PO (06:01)
[2020-05-17] MEDS: LEVOTHYROXINE 75 MCG TABLET PO (06:01)
[2020-05-17] MEDS: SODIUM CHLORIDE 0.9% FLUSH 10 ML IV ×2 (06:03→09:40)
[2020-05-17] MEDS: OXYCODONE IR 10 MG TABLET PO ×3 (06:03→13:40)
[2020-05-17] MEDS: ONDANSETRON 4 MG/2 ML INJ IV (06:03)
[2020-05-17 08:00] VITALS: BP 110/65; PULSE 81; RESP 18; TEMP 36.8; O2SAT 92
--- NOTE | 2020-05-17 08:29 | PM.PNPO.1 ---
Subjective Subjective Date Patient Seen: 05/17/20 Time Patient Seen: 08:29 Exam Vital Signs (past 8 hours): - 05/17/20 00:42 05/17/20 04:05 Temperature 97.2 F L 97.6 F Pulse Rate 93 H 76 Respiratory Rate 20 16 Blood Pressure 128/69 142/83 H Pulse Oximetry 93 95 Oxygen Delivery Method CPAP Oxygen Flow Rate 0 Objective Labs Result Diagrams: 05/16/20 06:18 05/15/20 16:45 [facility] Medical History Atypical chest pain CAD (coronary artery disease) Carpal tunnel syndrome of right wrist CHF (congestive heart failure) Chronic left shoulder pain Complex tear of medial meniscus of left knee as current injury COPD (chronic obstructive pulmonary disease) Diabetes type 2, controlled Diabetic neuropathy HTN (hypertension) Hyperlipidemia Insomnia Internal derangement of left knee [facility] current use of anticoagulant therapy Morbid obesity with body mass index (BMI) of 40.0 to 49.9 Myocardial infarction Obstructive sleep apnea of adult Pulmonary embolism Schizoaffective disorder, depressive type (03/17/11) Tardive dyskinesia Surgical History History of shoulder surgery Hx of CABG (~2008) Stented coronary artery (~2007) Family History Mother Coronary artery disease Father No problems noted. Social History marital status: unmarried,single details: lives with his parents household members: family lives independently: Yes caregiver/support person: Yes housing: house pets and animals: Yes Smoking Status: Former smoker alcohol intake: never substance use type: does not use Assessment & Plan Post-op Postoperative Procedures: Procedures Operation Date: 05/15/20 13:45 Actual Procedures Side Surgeon p Arthroscopy Knee with excision or repair as indicated Left Ramon Pappas MD Quality VTE Deep Vein Thrombosis/Pulmonary Embolism Present on Admission: No
[2020-05-17 09:13] VITALS: PULSE 81; RESP 18; O2SAT 92
--- NOTE | 2020-05-17 09:13 | PM.DS.1 ---
History of Present Illness History of Present Illness Date Patient Seen: 05/17/20 Time Patient Seen: 08:13 Chief complaint: LEFT KNEE Narrative: left knee medial pain Discharge Providers Provider Date of admission: 05/15/20 11:57 Discharge Date: 05/17/20 Primary care physician: Sandra Garland MD Consults: 05/15/20 13:00 Consult to Respiratory Therapy Evaluate & Treat Comment: Physician Instructions: Evaluate and treat 05/15/20 17:30 Consult to Discharge Planning Routine Comment: Consult to Hospitalist Service Routine Comment: Consulting Provider: Sanjuana Mandujano Reason for consultation: Chest pain post-op Has provider been notified: Yes Consult to Physical Therapy Evaluate & Treat Comment: Physician Instructions: Evaluate and Treat Consult to Respiratory Therapy Evaluate & Treat Comment: Physician Instructions: Evaluate and treat 05/15/20 17:32 Consult to Occupational Therapy Evaluate & Treat Comment: Physician Instructions: Evaluate and treat 05/15/20 17:33 Consult to Physical Therapy Evaluate & Treat Comment: Physician Instructions: Evaluate and Treat 05/16/20 18:35 Consult to Dietitian, Adult Routine Comment: nutrition consult/ Reason For Exam: obesity/diabetes Discharge provider: Katarina Trejo PA-C Summary Hospital Course Discharge Diagnosis: s/p knee arthroscopy Hospital Course: Luis E presented to the hospital for elective knee Left knee arthroscopy with partial medial meniscectomy with Dr. Pappas. Following surgery he developed substernal chest pain. After his procedure he woke up with chest pain. Dr. Mandujano was consulted for cardiac workup. The patient is admitted to the hospital for chest pain felt to be unstable angina and to rule out myocardial infarction. He reports his last episode of chest pain was about 6 months ago. He has had a stress test which was done about 2 years ago. A 12 lead EKG was obtained revealed sinus rhythm but no acute ST-T changes. Cardiac enzymes negative. Pain controlled with Oxycodone 5 mg. Patient recently was taken off his Xarelto for 5 days to prepare for surgery. He does have a history of DVT PE in the past. CT angio revealed Small pulmonary emboli involving the segmental and subsegmental arteries of the anteromedial segment of the left lower lobe and subsegmental arteries of the lateral segment of the right lower lobe. Patient restarted on Xarelto during stay and will remain on it at home. He has this prescription already. Exam Vital Signs (past 8 hours): - 05/17/20 04:05 05/17/20 08:00 Temperature 97.6 F 98.2 F Pulse Rate 76 81 Respiratory Rate 16 18 Blood Pressure 142/83 H 110/65 Pulse Oximetry 95 92 Oxygen Delivery Method CPAP Oxygen Flow Rate 0 Narrative Exam Narrative: Patient lying in bed in NAD. He is alert and oriented X3. Calves are soft, compressible, and nontender bilaterally. SILT throughout BLEs. SCDs on and functioning. He is able to actively dorsiflex and plantarflex. Dressing on left knee is CDI. 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 Social History marital status: unmarried,single details: lives with his parents household members: family lives independently: Yes caregiver/support person: Yes housing: house pets and animals: Yes Smoking Status: Former smoker alcohol intake: never substance use type: does not use Discharge Plan Discharge Plan Patient Disposition: Home Discharge orders & Medications Prescriptions: New oxycodone 5 mg capsule 5 mg PO Q6H PRN (Reason: post-op pain) Qty: 30 RF: 0 Continued gabapentin 300 mg capsule 600 mg PO TID RF: 0 insulin glargine 100 unit/mL (3 mL) insulin pen 35 unit Sub-Q BID RF: 0 lorazepam 1 mg tablet 1 mg PO DAILY PRN (Reason: agitation) Qty: 10 RF: 5 fenofibrate 160 mg tablet 160 mg PO DAILY RF: 0 lurasidone 80 mg tablet 80 mg PO QPM Qty: 90 RF: 0 divalproex [Depakote ER] 500 mg tablet extended release 24 hr See Rx Instructions PO .COMPLEX Qty: 360 RF: 1 metformin [Glucophage XR] 500 MG tablet extended release 24 hr 1,000 mg PO BIDCC Qty: 60 RF: 0 nitroglycerin [Nitrostat] 0.4 mg Tablet, Sublingual 0.4 mg Sublingual Q5 MIN PRN PRN (Reason: Chest Pain) RF: 0 atorvastatin 40 mg Tablet 40 mg PO BEDTIME RF: 0 levothyroxine [Synthroid] 75 mcg Tablet 75 mcg PO DAILY RF: 0 insulin aspart U-100 100 unit/mL Insulin Pen See Rx Instructions .ROUTE .COMPLEX RF: 0 aspirin 81 mg Tablet,Delayed Release (Dr/Ec) 81 mg PO DAILY RF: 0 Xarelto 20 mg Tablet 20 mg PO QPM RF: 0 metoclopramide HCl [Reglan] 10 mg tablet 10 mg PO Q6H PRN (Reason: nausea and vomiting) Qty: 20 RF: 0 hydrochlorothiazide 25 mg Tablet 25 mg PO DAILY RF: 0 metoprolol succinate [Toprol XL] 25 MG tablet extended release 24 hr 25 mg PO DAILY RF: 0 simvastatin 40 mg Tablet 40 mg PO DAILY RF: 0 insulin aspart U-100 [Novolog U-100 Insulin aspart] 100 unit/mL Solution See Rx Instructions .ROUTE .COMPLEX RF: 0 lisinopril 40 mg Tablet 40 mg PO DAILY RF: 0 isosorbide mononitrate 30 mg Tablet Extended Release 24 Hr 30 mg PO QAM RF: 0 furosemide 80 mg Tablet 80 mg PO DAILY RF: 0 aripiprazole 30 mg Tablet 30 mg PO DAILY RF: 0 Lantus Solostar U-100 Insulin 100 unit/mL (3 mL) Insulin Pen See Rx Instructions .ROUTE .COMPLEX RF: 0 ergocalciferol (vitamin D2) 1,250 mcg (50,000 unit) capsule 1,250 mcg PO QWEEK RF: 0 Follow up/Referrals: Ramon Pappas MD [Physician] - Sandra Garland MD [Primary Care Provider] - Diet/Activity/Treatments Diet comment: Regular diet Activity: WBAT RLE, avoid deep squats or twisting on the knee Cold/Heat Therapy: Elevate and ICE Skin/Wound/Dressing Care Dressing: Leave dressing in place for 3 days. OK to shower over incisions in 3 days. Do not soak or submerge incisions. Visit Report/Discharge Packet Instructions: DI for Knee Arthroscopy Discharge Data Primary Care Provider: Sandra Garland Attending Provider: Ramon Pappas Quality VTE Deep Vein Thrombosis/Pulmonary Embolism Present on Admission: No
[2020-05-17] MEDS: ACETAMINOPHEN 325 MG TABLET 975 MG PO (09:25)
[2020-05-17] MEDS: lisinopriL 20 MG TABLET 40 MG PO (09:26)
[2020-05-17] MEDS: ASPIRIN EC 81 MG TABLET PO (09:26)
[2020-05-17] MEDS: GABAPENTIN 600 MG TABLET PO (09:27)
[2020-05-17] MEDS: DOCUSATE 100 MG CAPSULE PO (09:27)
[2020-05-17] MEDS: SIMVASTATIN 40 MG TABLET PO (09:28)
[2020-05-17] MEDS: ARIPiprazole 10 MG TABLET 30 MG PO (09:28)
[2020-05-17] MEDS: FUROSEMIDE 40 MG TABLET 80 MG PO (09:29)
[2020-05-17] MEDS: METOPROLOL ER 25 MG TABLET PO (09:29)
[2020-05-17] MEDS: FENOFIBRATE 160 MG TABLET PO (09:30)
[2020-05-17] MEDS: DIVALPROEX ER 250 MG TAB 500 MG PO (09:40)
[2020-05-17] MEDS: INSULIN GLARGINE 100 UNIT/ML 3ML PEN 35 UNIT SUBCUT (09:41)
--- NOTE | 2020-05-17 10:42 | OT.IP.TRT ---
Current Diagnoses Complex tear of medial meniscus, current injury, left knee, initial encounter (05/15/20) Surgery Performed Operation Date: 05/15/20 13:45 Actual Procedures p Arthroscopy Knee with excision or repair as indicated(Left) - Ramon Pappas MD Occupational Therapy Treatment Note M2 OT-IP Current Condition Start: 05/16/20 17:23 Freq: Status: Active Protocol: Document 05/16/20 16:31 [facility] (Rec: 05/16/20 18:14 [facility] [id number]) Occupational Therapy Current Condition Current Condition Evaluation Date 05/16/20 Treatment Diagnosis PE and s/p partial medial meniscectomy Diagnosis Onset Date 05/15/20 M3 OT- IP Subjective and Pain Start: 05/16/20 17:23 Freq: Status: Active Protocol: Document 05/17/20 14:05 [facility] (Rec: 05/17/20 14:22 [facility] [id number]) OT- Subjective Occupational Therapy Visit Type Type Progress Note Visit Start Time 10:26 Visit Stop Time 10:42 Total Visit Minutes 16 OT Pain Assessment Pain When Pain Assessed At Rest Pain Present Pain Present Denied Pain M4 OT- IP ADL's Start: 05/16/20 17:23 Freq: Status: Active Protocol: Document 05/17/20 14:05 [facility] (Rec: 05/17/20 14:22 [facility] [id number]) OT [id number] Comments OT Self-Feeding Comments Not meal time OT ADL-Grooming General Evaluation Grooming Ability Standby Assistance Areas Needing Assistance Retrieving/Set-up of Grooming Items,Face Washing Comments OT Grooming Comments SBA for standing at sink OT ADL-Oral Care General Eval Oral Care Ability Standby Assistance Areas of Assistance Brushing Teeth Comments Oral Care Comments standing at sink OT ADL-Dressing General Eval Lower Body Dressing Ability Standby Assistance Areas Needing Assistance Pants/Shorts Comments OT Dressing Comments Pt states he does not wear socks because they are too hot . Pt was able to don pants without assist. OT ADL-Toileting General Evaluation Toileting Ability Standby Assistance Devices Toileting Assistive Devices Grab Bars OT ADL-Bathing Comments OT Bathing Comments Discussed home shower safety. Pt states he understands that he should use the down stairs walk in shower at this time. Nursing to assist pt with shower prior to discharge. M5 OT- IP IADL's Start: 05/16/20 17:23 Freq: Status: Active Protocol: Document 05/16/20 16:31 [facility] (Rec: 05/16/20 18:14 [facility] [id number]) OT-Instrumental Activities of Daily Living Home Safety Awareness Awareness of Need for Assistance at Home Good Awareness Ability to Problem Solve Emergency Able to Problem Solve Situations Medication Management Medication Management No Deficits Identified Money Management Money Management No Deficits Identified Meal Preparation Meal Preparation Caregiver Provides Assist Meal Preparation Comments Pt's mother cooks. M6 OT- IP Functional Cognition Start: 05/16/20 17:23 Freq: Status: Active Protocol: Document 05/16/20 16:31 [facility] (Rec: 05/16/20 18:14 [facility] [id number]) Cognitive Factors Limiting Selfcare Function Cognitive Ability Level of Alertness Alert Patient Orientation Name,Place,Situation Attention Span Ability Capable of Focused Attention, Capable of Sustained Attention Safety Awareness Underestimates Need for Assistance Cognitive Comments Cognitive Assessment Comments Pt needing reminder to use the walker after brushing his teeth. OT- Vision and Hearing OT- Hearing Assessment OT- Hearing Assessment WFL OT- Vision Assessment Visual Acuity Glasses All The Time M7 OT- IP Mobility and Balance Start: 05/16/20 17:23 Freq: Status: Active Protocol: Document 05/17/20 14:05 [facility] (Rec: 05/17/20 14:22 [facility] [id number]) OT- Bed Mobility Assessment Rolling Type of Rolling Roll to Left Level of Assistance Standby Assistance Supine to Sit Supine to Sit Assist Standby Assistance Scooting Scooting to Edge of Bed Standby Assistance OT-Transfer Assessment Sit to and From Stand Sit to and from Stand Standby Assistance Transfers Transfer Ability Standby Assistance Technique Transfer Destination Bed,Chair,Toilet Transfer Technique Stand Step Pivot Devices Transfer Assistive Devices Gait Belt,Front Wheeled Walker Comments Mobility Comments Mobility around the room, left in chair at end of session. OT- Gait Assessment Gait Gait Assistance Required: Standby Assistance Assistive Devices Assistive Device Gait Belt,Front Wheeled Walker OT- Balance Assessment Sitting Balance and Reactions Static Sitting Balance Ability Good Dynamic Sitting Balance Ability Good Standing Balance and Reactions Static Standing Balance Ability Fair Dynamic Standing Balance Ability Poor M8 OT- IP Objective Assessments Start: 05/16/20 17:23 Freq: Status: Active Protocol: Document 05/16/20 16:31 [facility] (Rec: 05/16/20 18:14 [facility] [id number]) OT Gross Range of Motion Upper Extremity Range of Motion ROM Impairments Grossly WFL OT- Coordination Assessment Upper Extremity Finger to Nose Test Within Functional Limits OT-Muscle Tone Assessment Muscle Tone WNL Yes M9 OT- IP Assessment and Plan Start: 05/16/20 17:23 Freq: Status: Active Protocol: Document 05/17/20 14:05 [facility] (Rec: 05/17/20 14:22 [facility] [id number]) OT Summary Assessment and Plan Potential Rehabilitation Potential Good Analytic Complexity at Evaluation Low Summary OT Impairments Pain,Functional Cognition, Functional Mobility,Grooming, Dressing,Toileting,Bathing, Toilet Transfers,Shower Transfers,Activity Tolerance Progress Towards Goals Progressing Toward Goals Assessment Summary Pt presents with increased endurance and functional mobility on this date. Pt states he feels like he can go home today. Discussed home safety and showers and educated on LB dressing and ADLs. Goals Grooming Goal Independent Dressing Goal Independent Toileting Goal Independent Bathing Goal Independent Toilet Transfer Goal Independent Shower Transfer Goal Independent Patient/Caregiver Education Goal Demonstrate Post-Op Precautions Days to Meet Goals 10 Frequency of Treatment Frequency Of Treatment Once a Day Treatment Plan OT Treatment Plan ADL Training,Functional Cognition Training,Functional Mobility,Patient/Family Education,Discharge Planning Discharge Recommendations OT Discharge Recommendations Home Transportation Needs at Discharge Private Vehicle
--- NOTE | 2020-05-17 10:50 | PT-IP ANOTE ---
Pt showering with [employer]CH[employer]IC, will check back with pt later today.
[2020-05-17] MEDS: INSULIN ASPART 100 UNIT/ML INSULN PEN SUBCUT (11:37)
--- NOTE | 2020-05-17 11:50 | PT.IPTN ---
Current Diagnoses Complex tear of medial meniscus, current injury, left knee, initial encounter (05/15/20) Surgery Performed Operation Date: 05/15/20 13:45 Actual Procedures p Arthroscopy Knee with excision or repair as indicated(Left) - Ramon Pappas MD Physical Therapy Treatment Note M2 PT-IP Current Condition Start: 05/16/20 11:55 Freq: NEEDED Status: Active Protocol: Document 05/16/20 10:32 [facility] (Rec: 05/16/20 12:17 [facility] [id number]) Physical Therapy Current Condition Current Condition Evaluation Date 05/16/20 Treatment Diagnosis s/p L knee arthroscopy w/ partial medical meniscectomy; difficulty in walk Onset Date 05/15/20 Precautions Other Precautions From ortho MD's note: Avoid deep squatting twisting turning on the knee M3 PT-IP Subjective Start: 05/16/20 11:55 Freq: NEEDED Status: Active Protocol: Document 05/17/20 11:29 [facility] (Rec: 05/17/20 12:16 [facility] [id number]) Subjective Physical Therapy Visit Type Type Treatment Note Visit Start Time 11:29 Visit Stop Time 11:50 Total Visit Minutes 21 Number of CAD DEVELOPER Visits 2 Physical Therapy Visit Comments Patient Comments pt is agreeable to do PT Therapy Pain Assessment Pain When Pain Assessed At Rest Pain Present Pain Present Pain Reported M4 PT-IP Mobility and Gait Start: 05/16/20 11:55 Freq: NEEDED Status: Active Protocol: Document 05/17/20 11:29 [facility] (Rec: 05/17/20 12:16 [facility] [id number]) PT-Bed Mobility Assessment Supine to Sit Supine to Sit Independent Sit to Supine Sit to Supine Standby Assistance PT-Transfer Assessment Sit to and From Stand Sit to and from Stand Standby Assistance,Use of Upper Extremities Equipment Transfer Assistive Device Gait Belt,Front Wheeled Walker ,4 Wheeled Walker Orthotic/Prosthetic Devices or Brace: No Comments Mobility Comments Pt Ind to EOB, pt stood from bed SBA and ambulated into broussard to WC. Pt sat in WC SBA. Pt rode to therapy stairs. After education and demonstration pt stood SBA from WC and climbed three stairs x2 with bilateral rails requiring SBA. Pt returned to room to trial 4WW. Pt educated on 4WW use of brakes, pt locked brakes and stood SBA, pt then ambulated in broussard ~50ft before stating he wanted to return to room. Pt sat on EOB SBA then to supine. Left pt in bed with all needs within reach. Pt requested door be left open. Gait Assessment Gait Gait Assistance Required: Standby Assistance Distance (Feet) 100 Able to Maintain Weight Bearing Status Yes During Gait Assistive Devices Assistive Device Gait Belt,Front Wheeled Walker ,4 Wheeled Walker Orthotic/Prosthetic Devices or Brace: No Gait Deviations General Gait Pattern Antalgic,Decreased Stride Length,Decreased Feet Clearance,Step-to Gait Factors Limiting Gait Function Factors Limiting Gait Function Decreased Activity Tolerance, Decreased Strength,Limited Range of Motion,Pain,Poor Balance,Poor Safety Awareness Comments Gait Comments Pt improving with gait and is steady with 4WW. Stair Climbing Assessment Evaluation Level of Assist On Stairs Standby Assistance Devices Stair Climbing Assistive Devices Left Railing,Right Railing Technique/Endurance Stair Climbing Direction Ascend and Descend Stair Climbing Technique Step to Step Number of Steps Climbed 3 Stair Climbing Set # Repetitions (reps) 2 Comments Stair Climbing Comments Pt able to climb stairs SBA with bilateral rails. M5 PT-IP Objective Assessments Start: 05/16/20 11:55 Freq: NEEDED Status: Active Protocol: Document 05/16/20 10:32 [facility] (Rec: 05/16/20 12:17 [facility] [id number]) Orientation Orientation/Cognition Level of Alertness Alert Orientation Name,Place,Situation Safety Awareness Understands Safety Issues Memory Description No Deficits Noted Strength Lower Extremity Strength Assessment Left Impaired Hip 3+/5 Knee 3+/5 Coordination Assessment Gross Coordination Gross Coordination WNL Sensation Assessment Sensation Gross Sensation WNL Muscle Tone Muscle Tone WNL Yes M6 PT-IP Treatment Start: 05/16/20 11:55 Freq: NEEDED Status: Active Protocol: Document 05/16/20 15:00 [facility] (Rec: 05/16/20 15:41 [facility] [id number]) Physical Therapy Treatment Exercises Exercises Seated Knee Flexion/Extension Education Education Provided Precautions,Safety M7 PT-IP Assessment and Plan Start: 05/16/20 11:55 Freq: NEEDED Status: Active Protocol: Document 05/17/20 11:29 [facility] (Rec: 05/17/20 12:16 [facility] [id number]) PT Summary Assessment and Plan Potential Rehabilitation Potential Good Status of Condition at Evaluation Stable Summary Impairments Pain,ROM,Strength,Balance, Coordination,Sensation,Tone, Cognition,Bed Mobility, Transfers,Gait,Activity Tolerance Progress Towards Goals Progressing Toward Goals Assessment Summary Pt improving with all mobility . Pt SBA for sup<>sit and sit< >stand. Pt climbed stairs SBA and is safe with 4WW during ~ 100ft of gait requiring SBA. Goals Bed Mobility Goal Independent Transfer Goal Independent,Front Wheeled Walker Gait Goal Independent,Front Wheel Walker Gait Distance 100 Other Goals improve ambulation using 4WW 150 ft mod I up/down 10 steps using B rails SBA Days to Meet Goals 5 Frequency of Treatment Frequency Of Treatment Twice a Day Treatment Plan Physical Therapy Treatment Plan Bed Mobility Training,Transfer Training,Gait Training, Therapeutic Exercise,Balance Retraining,Post Op Education, Discharge Planning,Hot or Cold Pack,Neuromuscular Re-ed, Coordination Retraining,Manual Therapy Recommendations To Nursing Amount of Assist Needed 1 Person Assist Discharge Recommendations PT Discharge Recommendations Home with Assistance,SNF Rehab Transportation Needs at Discharge Private Vehicle
[2020-05-17 12:00] VITALS: BP 126/69; PULSE 69; RESP 20; TEMP 36.6; O2SAT 92
--- NOTE | 2020-05-17 14:02 | CM.DPC ---
DCP/continued: Reviewed chart. Spoke with CJ in OT and she reports patient cleared from therapy standpoint to return home. Patient resides with family. P: Home today. GUANACO Mckay
--- NOTE | 2020-05-17 14:22 | PC.NURSE ---
Addendum entered by Mily Rosario R.N. 05/17/20 14:26: pt cleared for DC. Administered 10mg Oxycodone for 9/10 pain to left knee. Belongings packed. PIV removed and tolerated well, tele removed by patient. DC instructions provided without questions. Wallet returned to patient from safe. Transferred to ride at [facility]. Original Note: AM Shift note. pt AO and receptive to care. Utilizing CPAP at night and during naps. Right hand PIV patent. MU Wrap (with aquacel underneath) to left knee. Reporting mild and tolerable pain managed with oxycodone. Up with FWW. Tele: SR. ACHS 153, [id number] with coverage. Denying chest pain. Tolerating heart healthy ADA diet. Stress test canceled.
== END 2020-05-17 13:50 | disposition home or self-care (01) ==
LOC: OR 15:26 → AC 05-16 08:14
PROVIDERS: Anesthesiology; Internal Medicine; Admitting Provider Orthopaedic Surgery Adult Reconstructive Orthopaedic Surgery; PCP Family Medicine; Referring Provider Orthopaedic Surgery Adult Reconstructive Orthopaedic Surgery; Visit Provider Orthopaedic Surgery Adult Reconstructive Orthopaedic Surgery
PROC: (CPT 29870; principal; 2020-05-15 13:45)
DX: S83.242A Other tear of medial meniscus, current injury, left knee, initial encounter (principal); M94.262 Chondromalacia, left knee; R07.89 Other chest pain; Z95.1 Presence of aortocoronary bypass graft; E66.01 Morbid (severe) obesity due to excess calories; Z86.711 Personal history of pulmonary embolism; Z79.01 Long term (current) use of anticoagulants; Z86.718 Personal history of other venous thrombosis and embolism; I10 Essential (primary) hypertension; E78.5 Hyperlipidemia, unspecified; E11.9 Type 2 diabetes mellitus without complications; Z79.4 Long term (current) use of insulin; G24.01 Drug induced subacute dyskinesia; G47.33 Obstructive sleep apnea (adult) (pediatric); F25.9 Schizoaffective disorder, unspecified
CPT/HCPCS: 29881; 36415; 71045; 71275; 80048; 80061; 82962; 83880; 84484; 85025; 85027; 93005; 94760; 97116; 97161; 97165; 97535; G0378; C8929; C9113; J1885; J2270; J2405; J2704; J3010; Q9957

== ENCOUNTER 2020-07-03 14:48 | Emergency (ER) | payer OTHER, SELFPAY ==
[2020-06-28 14:56] VITALS: BMI 45.5
[2020-07-03] VITALS (7 sets, daily range): BP systolic 148–175; BP diastolic 67–88; PULSE 66–84; RESP 18; TEMP 36.4–36.9; O2SAT 96–99; BMI 44.1
[2020-07-03 15:51] LABS: INR 1.2 (0.9-1.3); Prothrombin Time 13.6 SECONDS (10.1-12.7)
[2020-07-03 15:54] LABS: PTT Partial Thromboplastin Tim 26 SECONDS (26.4-36.2)
--- NOTE | 2020-07-03 15:56 | ED.PSYCH ---
HPI - Psych <Kamilah Mccormick, METALLURGICAL LAB TECHNICIAN-BC - Last Filed: 07/03/20 20:11> General Chief Complaint: Psychiatric Symptoms Stated Complaint: hearing voices, suicidal thoughts Time Seen by Provider: 07/03/20 15:04 Source: patient Mode of arrival: Ambulatory Limitations: no limitations History of Present Illness HPI Narrative: The patient is a 59-year-old male former smoker with history of schizoaffective disorder, type 2 diabetes and sleep apnea who presents for chief complaint of increased suicidal thoughts over the past few days as well as increased auditory hallucinations. He states he always has a voice, but is become increasingly loud and aggressive. He states that the voices telling him to kill himself by driving off a abhijeet, or using a gun or knife on himself at home. The patient does state that he has a gun and knife at home. He states he feels increasingly anxious. Does not want to hurt anybody else, but does have increased stress at home. He states that his chest pains are happening more frequently, likely due to increased anxiety. He denies any specific plan to hurt or kill himself other than the ones presented by his auditory hallucination. The patient presents by way of his psychiatrist office, as he went there today thinking he had an appointment. He actually had an appointment yesterday, which he missed. However due to his increasing suicidal thoughts, he was referred to the emergency department today. Related Data Home Medications Medication Instructions Recorded Confirmed metformin [Glucophage XR] 1,000 mg PO BIDCC #60 tab 12/25/16 05/15/20 atorvastatin 40 mg PO BEDTIME 10/12/17 05/15/20 insulin aspart U-100 See Rx Instructions .ROUTE .COMPLEX 10/12/17 05/15/20 levothyroxine [Synthroid] 75 mcg PO DAILY 10/12/17 05/15/20 nitroglycerin [Nitrostat] 0.4 mg SUBLINGUAL Q5 MIN PRN PRN 10/12/17 05/15/20 hydrochlorothiazide 25 mg PO DAILY 05/26/18 05/15/20 metoprolol succinate [Toprol XL] 25 mg PO DAILY 05/26/18 05/15/20 fenofibrate 160 mg tablet 160 mg PO DAILY 12/16/18 05/15/20 Xarelto 20 mg PO QPM 02/16/19 05/15/20 aspirin 81 mg PO DAILY 02/16/19 05/15/20 insulin glargine 100 unit/mL (3 35 unit SUB-Q BID ml 08/25/19 05/15/20 mL) subcutaneous pen gabapentin 300 mg capsule 600 mg PO TID cap 11/29/19 05/15/20 ergocalciferol (vitamin D2) 1,250 1,250 mcg PO QWEEK 11/30/19 05/15/20 mcg (50,000 unit) capsule Lantus Solostar U-100 Insulin See Rx Instructions .ROUTE .COMPLEX 05/07/20 05/15/20 aripiprazole 30 mg PO DAILY 05/07/20 05/15/20 furosemide 80 mg PO DAILY 05/07/20 05/15/20 insulin aspart U-100 [Novolog See Rx Instructions .ROUTE .COMPLEX 05/07/20 05/15/20 U-100 Insulin aspart] isosorbide mononitrate 30 mg PO QAM 05/07/20 05/15/20 lisinopril 40 mg PO DAILY 05/07/20 05/15/20 simvastatin 40 mg PO DAILY 05/07/20 05/15/20 Previous Rx's Medication Instructions Recorded lorazepam 1 mg tablet 1 mg PO DAILY PRN #10 tab 02/06/20 metoclopramide HCl [Reglan] 10 mg PO Q6H PRN #20 tab 04/26/20 divalproex 500 mg tablet,extended See Rx Instructions PO .COMPLEX 04/30/20 release 24 hr #360 tab lurasidone 80 mg tablet 80 mg PO QPM #90 tab 04/30/20 oxycodone 5 mg PO Q6H PRN #30 cap 05/15/20 Allergies Allergy/AdvReac Type Severity Reaction Status Date / Time Penicillins [PENICILLINS] Allergy Severe Swelling Verified 07/03/20 14:57 of Lip/Tongue/Throat quetiapine AdvReac Intermediate oversedation Verified 07/03/20 14:August Alluna Sleep AdvReac Severe Difficulty Uncoded 07/03/20 14:57 Swallowing Review of Systems <JONN Vargas-BC - Last Filed: 07/03/20 20:11> Review of Systems Narrative: GENERAL: Denies chills, fatigue, malaise, fever, sweats. HEENT: Denies sinus pain, ear pain, sore throat, difficulty swallowing, dizziness. RESPIRATORY: Denies dyspnea, cough, wheezing, hemoptysis, sputum. CARDIOVASCULAR: Denies chest pain, palpitations, orthopnea, edema, GASTROINTESTINAL: Denies nausea, vomiting, abdominal pain, diarrhea, constipation, melena. : Denies dysuria, frequency, incontinence, hematuria, urinary retention. MUSCULOSKELETAL: denies weakness, joint pain, or bony pain SKIN: Denies rash, skin lesions, or other NEUROLOGIC: Denies weakness, headache, numbness, change in speech, confusion, seizures, incoordination. PSYCHIATRIC: See HPI 12 point review of systems is negative except for those stated above Patient History <JACOB Vargas - Last Filed: 07/03/20 20:11> Medical History Atypical chest pain CAD (coronary artery disease) Carpal tunnel syndrome of right wrist CHF (congestive heart failure) Chronic left shoulder pain Complex tear of medial meniscus of left knee as current injury COPD (chronic obstructive pulmonary disease) Diabetes type 2, controlled Diabetic neuropathy HTN (hypertension) Hyperlipidemia Insomnia Internal derangement of left knee residential current use of anticoagulant therapy Morbid obesity with body mass index (BMI) of 40.0 to 49.9 Myocardial infarction Obstructive sleep apnea of adult Pulmonary embolism Schizoaffective disorder, depressive type (03/17/11) Tardive dyskinesia Surgical History History of shoulder surgery Hx of CABG (~2008) Stented coronary artery (~2007) Family History Mother Coronary artery disease Father No problems noted. Social History marital status: unmarried,single details: lives with his parents household members: family lives independently: Yes caregiver/support person: Yes housing: house pets and animals: Yes Smoking Status: Former smoker alcohol intake: never substance use type: does not use Smoking Status: Former smoker alcohol intake frequency: 0-2 drinks per day Substance Use Type: does not use Exam <JACOB Vargas - Last Filed: 07/03/20 20:11> Narrative Exam Narrative: GENERAL: This is a well-nourished, well-developed patient, appears anxious. HEAD: Atraumatic. Normocephalic. No temporal or scalp tenderness. EYES: Pupils equal round and reactive. Extraocular motions intact. No scleral icterus. No injection or drainage. ENT: Nose without bleeding, purulent drainage or septal hematoma. Wearing a mask Airway patent. NECK: Trachea midline. No JVD or lymphadenopathy. Supple, nontender, no meningeal signs. CARDIOVASCULAR: Regular rate and rhythm RESPIRATORY: Clear to auscultation. Breath sounds equal bilaterally. No wheezes, rales, or rhonchi. No cough. No increased respiratory effort. No accessory muscle use. GASTROINTESTINAL: Abdomen soft, non-tender, nondistended. No hepato-splenomegaly, or palpable masses. No guarding. EXTREMITIES: No clubbing, cyanosis, or edema. No joint tenderness, effusion, or edema noted. BACK: Nontender without deformity or crepitance. No flank tenderness. NEURO: AOx3. Speaking full sentences. No gross cranial nerve deficit. Tremor noted right arm at baseline for patient. SKIN: No rash or erythema on visible skin Initial Vital Signs Initial Vital Signs: Vital Signs Temperature 97.6 F 07/03/20 14:52 Pulse Rate 76 07/03/20 14:52 Respiratory Rate 18 07/03/20 14:52 Blood Pressure 171/88 H 07/03/20 14:52 Pulse Oximetry 96 07/03/20 14:52 <Ramesh Jimenez DO - Last Filed: 07/04/20 01:25> Initial Vital Signs Initial Vital Signs: Vital Signs Temperature 97.6 F 07/03/20 14:52 Pulse Rate 76 07/03/20 14:52 Respiratory Rate 18 07/03/20 14:52 Blood Pressure 171/88 H 07/03/20 14:52 Pulse Oximetry 96 07/03/20 14:52 Scores <JACOB Vargas - Last Filed: 07/03/20 20:11> GCS Curtis coma scale eye opening: Spontaneous [place] coma scale verbal response: Orientated Curtis coma scale motor response: Obey commands Curtis coma scale total score: 15 Course <JACOB Vargas - Last Filed: 07/03/20 20:11> Orders Ordered: ED Orders 07/03/20 18:16 Troponin & CK Cardiac Panel Stat Discontinued Medications Atorvastatin Calcium (Atorvastatin 20 Mg Tablet) 40 mg PO NOW ONE Stop: 07/03/20 19:19 Last Admin: 07/03/20 19:58 Dose: 40 mg Documented by: AIMEE Divalproex Sodium (Divalproex Er 250 Mg Tab) 1,500 mg PO NOW ONE Stop: 07/03/20 19:19 Last Admin: 07/03/20 19:58 Dose: 1,500 mg Documented by: AIMEE Gabapentin (Gabapentin 600 Mg Tablet) 600 mg PO NOW ONE Stop: 07/03/20 19:19 Last Admin: 07/03/20 19:59 Dose: 600 mg Documented by: AIMEE Hydroxyzine Pamoate (Hydroxyzine Pamoate 25 Mg Capsule) 50 mg PO NOW ONE Stop: 07/03/20 17:49 Last Admin: 07/03/20 17:55 Dose: 50 mg Documented by: MARLI Insulin Aspart (Insulin Aspart 100 Unit/Ml 10ml Vial) 30 unit SUBCUT NOW ONE Stop: 07/03/20 16:35 Last Admin: 07/03/20 17:33 Dose: 30 unit Documented by: MARLI Cosigned by: KAYE Insulin Glargine (Insulin Glargine 100 Unit/Ml 3ml Pen) 35 unit SUBCUT NOW ONE Stop: 07/03/20 19:46 Last Admin: 07/03/20 20:41 Dose: 35 unit Documented by: AIMEE Cosigned by: VINICIUS Lorazepam (Lorazepam 0.5 Mg Tablet) 1 mg PO NOW ONE Stop: 07/03/20 16:33 Last Admin: 07/03/20 16:38 Dose: 1 mg Documented by: MARLI Metformin HCl (Metformin Xr 500 Mg Tablet) 1,000 mg PO NOW ONE Stop: 07/03/20 19:27 Last Admin: 07/03/20 19:59 Dose: 1,000 mg Documented by: AIMEE Olanzapine (Olanzapine Odt 10 Mg Tab) 10 mg PO NOW ONE Stop: 07/03/20 21:49 Last Admin: 07/03/20 22:07 Dose: 10 mg Documented by: AIMEE Ondansetron HCl (Ondansetron 4 Mg Odt) 4 mg SL NOW ONE Stop: 07/03/20 18:34 Last Admin: 07/03/20 18:47 Dose: 4 mg Documented by: MARLI Rivaroxaban (Rivaroxaban 10 Mg Tablet) 20 mg PO NOW ONE Stop: 07/03/20 19:24 Last Admin: 07/03/20 19:58 Dose: 20 mg Documented by: AIMEE Vital Signs Vital signs: Vital Signs - 8 hr 07/03/20 17:52 07/03/20 18:51 07/03/20 18:52 Temperature Pulse Rate 69 84 84 Respiratory Rate Blood Pressure 175/84 H 159/71 H Pulse Oximetry 99 96 96 07/03/20 19:01 07/03/20 21:14 07/03/20 21:15 Temperature 98.4 F Pulse Rate 84 68 66 Respiratory Rate 18 Blood Pressure 159/71 H 148/67 H Pulse Oximetry 96 96 96 <Ramesh Jimenez DO - Last Filed: 07/04/20 01:25> Orders Ordered: ED Orders 07/03/20 18:16 Troponin & CK Cardiac Panel Stat Discontinued Medications Atorvastatin Calcium (Atorvastatin 20 Mg Tablet) 40 mg PO NOW ONE Stop: 07/03/20 19:19 Last Admin: 07/03/20 19:58 Dose: 40 mg Documented by: AIMEE Divalproex Sodium (Divalproex Er 250 Mg Tab) 1,500 mg PO NOW ONE Stop: 07/03/20 19:19 Last Admin: 07/03/20 19:58 Dose: 1,500 mg Documented by: AIMEE Gabapentin (Gabapentin 600 Mg Tablet) 600 mg PO NOW ONE Stop: 07/03/20 19:19 Last Admin: 07/03/20 19:59 Dose: 600 mg Documented by: AIMEE Hydroxyzine Pamoate (Hydroxyzine Pamoate 25 Mg Capsule) 50 mg PO NOW ONE Stop: 07/03/20 17:49 Last Admin: 07/03/20 17:55 Dose: 50 mg Documented by: MARLI Insulin Aspart (Insulin Aspart 100 Unit/Ml 10ml Vial) 30 unit SUBCUT NOW ONE Stop: 07/03/20 16:35 Last Admin: 07/03/20 17:33 Dose: 30 unit Documented by: MARLI Cosigned by: KAYE Insulin Glargine (Insulin Glargine 100 Unit/Ml 3ml Pen) 35 unit SUBCUT NOW ONE Stop: 07/03/20 19:46 Last Admin: 07/03/20 20:41 Dose: 35 unit Documented by: AIMEE Cosigned by: VINICIUS Lorazepam (Lorazepam 0.5 Mg Tablet) 1 mg PO NOW ONE Stop: 07/03/20 16:33 Last Admin: 07/03/20 16:38 Dose: 1 mg Documented by: MARLI Metformin HCl (Metformin Xr 500 Mg Tablet) 1,000 mg PO NOW ONE Stop: 07/03/20 19:27 Last Admin: 07/03/20 19:59 Dose: 1,000 mg Documented by: AIMEE Olanzapine (Olanzapine Odt 10 Mg Tab) 10 mg PO NOW ONE Stop: 07/03/20 21:49 Last Admin: 07/03/20 22:07 Dose: 10 mg Documented by: AIMEE Ondansetron HCl (Ondansetron 4 Mg Odt) 4 mg SL NOW ONE Stop: 07/03/20 18:34 Last Admin: 07/03/20 18:47 Dose: 4 mg Documented by: MARLI Rivaroxaban (Rivaroxaban 10 Mg Tablet) 20 mg PO NOW ONE Stop: 07/03/20 19:24 Last Admin: 07/03/20 19:58 Dose: 20 mg Documented by: AIMEE Vital Signs Vital signs: Vital Signs - 8 hr 07/03/20 17:52 07/03/20 18:51 07/03/20 18:52 Temperature Pulse Rate 69 84 84 Respiratory Rate Blood Pressure 175/84 H 159/71 H Pulse Oximetry 99 96 96 07/03/20 19:01 07/03/20 21:14 07/03/20 21:15 Temperature 98.4 F Pulse Rate 84 68 66 Respiratory Rate 18 Blood Pressure 159/71 H 148/67 H Pulse Oximetry 96 96 96 MDM - Psych <JACOB Vargas - Last Filed: 07/03/20 20:11> Lab Data Attestation: I reviewed the patient's lab results. Result diagrams: 07/03/20 15:48 07/03/20 15:40 Labs: Lab Results 07/03/20 07/03/20 07/03/20 Range/Units 15:31 15:31 15:40 WBC (4.5-11.0) X10^3/uL RBC (4.5-5.9) X10^6/uL Hgb (13.5-17.5) g/dL Hct (41-53) % MCV (80-100) fL MCH (26-34) PG MCHC (30-36) % RDW (11.6-14.8) % Plt Count (150-400) X10^3/uL Neut % (Auto) (50-75) % Lymph % (Auto) (25-40) % [place] % (Auto) (3-14) % Eos % (Auto) (2-4) % Baso % (Auto) (0-2) % Neut # (Auto) (2667-6975) /uL Lymph # (Auto) (1409-6142) /uL [place] # (Auto) (0-900) /uL Eos # (Auto) (0-450) /uL Baso # (Auto) (0-100) /uL PT 13.6 H (10.1-12.7) SECONDS INR 1.2 (0.9-1.3) APTT 26 L D (26.4-36.2) SECONDS Sodium 136 L (137-145) mmol/L Potassium 3.9 (3.4-5.1) mmol/L Chloride 104 (98-107) mmol/L Carbon Dioxide 22 (22-32) mmol/L BUN 14 (9-20) mg/dL Creatinine 1.02 (0.66-1.25) mg/dL Estimated GFR > 60.0 (>60) mL/min BUN/Creatinine Ratio 13.7 (6-22) Glucose 260 H (70-100) mg/dL Calcium 9.2 (8.4-10.2) mg/dL Total Bilirubin 0.2 (0.2-1.3) mg/dL AST 25 (17-59) IU/L ALT 28 (<50) IU/L Alkaline Phosphatase 77 (38-126) U/L Total Creatine Kinase 281 H (55-170) U/L CK-MB (CK-2) 2.32 (<2.37) ng/mL CK-MB (CK-2) Rel Index 0.8 L (1.5-5.0) % Troponin I < 0.012 (0.01-0.034) ng/mL Total Protein 6.2 L (6.3-8.2) g/dL Albumin 3.7 (3.5-5.0) g/dL Globulin 2.5 (1.7-4.1) g/dL Albumin/Globulin Ratio 1.5 (1.0-2.8) TSH 0.561 (0.47-4.68) uIU/mL Salicylates < 1.0 (<20) mg/dL U Opiates 300ng/mL cut (Negative) Ur Oxycodone Screen (Negative) Urine Methadone Screen (Negative) Acetaminophen < 10 L (10-30) ug/mL Ur Barbiturates Screen (Negative) U Tricyclic Antidepress (Negative) Ur Phencyclidine Scrn (Negative) Ur Amphetamines Screen (Negative) U Methamphetamines Scrn (Negative) Ur MDMA Scrn (Ecstasy) (Negative) U Benzodiazepines Scrn (Negative) Urine Cocaine Screen (Negative) U Marijuana (THC) Screen (Negative) Ethyl Alcohol < 10 ( - 10) mg/dL SARS-CoV-2 (PCR) (Negative) 07/03/20 07/03/20 07/03/20 Range/Units 15:48 15:49 15:55 WBC 5.4 (4.5-11.0) X10^3/uL RBC 4.60 (4.5-5.9) X10^6/uL Hgb 13.6 (13.5-17.5) g/dL Hct 40.4 L (41-53) % MCV 87.8 (80-100) fL MCH 29.5 (26-34) PG MCHC 33.6 (30-36) % RDW 15.0 H (11.6-14.8) % Plt Count 165 (150-400) X10^3/uL Neut % (Auto) 71.8 (50-75) % Lymph % (Auto) 19.7 L (25-40) % [place] % (Auto) 7.0 (3-14) % Eos % (Auto) 1.1 L (2-4) % Baso % (Auto) 0.4 (0-2) % Neut # (Auto) 3900 (7216-6654) /uL Lymph # (Auto) 1100 (5893-8827) /uL [place] # (Auto) 400 (0-900) /uL Eos # (Auto) 100 (0-450) /uL Baso # (Auto) 0 (0-100) /uL PT (10.1-12.7) SECONDS INR (0.9-1.3) APTT (26.4-36.2) SECONDS Sodium (137-145) mmol/L Potassium (3.4-5.1) mmol/L Chloride (98-107) mmol/L Carbon Dioxide (22-32) mmol/L BUN (9-20) mg/dL Creatinine (0.66-1.25) mg/dL Estimated GFR (>60) mL/min BUN/Creatinine Ratio (6-22) Glucose (70-100) mg/dL Calcium (8.4-10.2) mg/dL Total Bilirubin (0.2-1.3) mg/dL AST (17-59) IU/L ALT (<50) IU/L Alkaline Phosphatase (38-126) U/L Total Creatine Kinase (55-170) U/L CK-MB (CK-2) (<2.37) ng/mL CK-MB (CK-2) Rel Index (1.5-5.0) % Troponin I (0.01-0.034) ng/mL Total Protein (6.3-8.2) g/dL Albumin (3.5-5.0) g/dL Globulin (1.7-4.1) g/dL Albumin/Globulin Ratio (1.0-2.8) TSH (0.47-4.68) uIU/mL Salicylates (<20) mg/dL U Opiates 300ng/mL cut Negative (Negative) Ur Oxycodone Screen Negative (Negative) Urine Methadone Screen Negative (Negative) Acetaminophen (10-30) ug/mL Ur Barbiturates Screen Negative (Negative) U Tricyclic Antidepress Negative (Negative) Ur Phencyclidine Scrn Negative (Negative) Ur Amphetamines Screen Negative (Negative) U Methamphetamines Scrn Negative (Negative) Ur MDMA Scrn (Ecstasy) Negative (Negative) U Benzodiazepines Scrn Negative (Negative) Urine Cocaine Screen Negative (Negative) U Marijuana (THC) Screen Negative (Negative) Ethyl Alcohol ( - 10) mg/dL SARS-CoV-2 (PCR) Negative (Negative) 07/03/20 Range/Units 18:16 WBC (4.5-11.0) X10^3/uL RBC (4.5-5.9) X10^6/uL Hgb (13.5-17.5) g/dL Hct (41-53) % MCV (80-100) fL MCH (26-34) PG MCHC (30-36) % RDW (11.6-14.8) % Plt Count (150-400) X10^3/uL Neut % (Auto) (50-75) % Lymph % (Auto) (25-40) % [place] % (Auto) (3-14) % Eos % (Auto) (2-4) % Baso % (Auto) (0-2) % Neut # (Auto) (0467-9689) /uL Lymph # (Auto) (7215-6135) /uL [place] # (Auto) (0-900) /uL Eos # (Auto) (0-450) /uL Baso # (Auto) (0-100) /uL PT (10.1-12.7) SECONDS INR (0.9-1.3) APTT (26.4-36.2) SECONDS Sodium (137-145) mmol/L Potassium (3.4-5.1) mmol/L Chloride (98-107) mmol/L Carbon Dioxide (22-32) mmol/L BUN (9-20) mg/dL Creatinine (0.66-1.25) mg/dL Estimated GFR (>60) mL/min BUN/Creatinine Ratio (6-22) Glucose (70-100) mg/dL Calcium (8.4-10.2) mg/dL Total Bilirubin (0.2-1.3) mg/dL AST (17-59) IU/L ALT (<50) IU/L Alkaline Phosphatase (38-126) U/L Total Creatine Kinase 210 H (55-170) U/L CK-MB (CK-2) 1.49 (<2.37) ng/mL CK-MB (CK-2) Rel Index 0.7 L (1.5-5.0) % Troponin I < 0.012 (0.01-0.034) ng/mL Total Protein (6.3-8.2) g/dL Albumin (3.5-5.0) g/dL Globulin (1.7-4.1) g/dL Albumin/Globulin Ratio (1.0-2.8) TSH (0.47-4.68) uIU/mL Salicylates (<20) mg/dL U Opiates 300ng/mL cut (Negative) Ur Oxycodone Screen (Negative) Urine Methadone Screen (Negative) Acetaminophen (10-30) ug/mL Ur Barbiturates Screen (Negative) U Tricyclic Antidepress (Negative) Ur Phencyclidine Scrn (Negative) Ur Amphetamines Screen (Negative) U Methamphetamines Scrn (Negative) Ur MDMA Scrn (Ecstasy) (Negative) U Benzodiazepines Scrn (Negative) Urine Cocaine Screen (Negative) U Marijuana (THC) Screen (Negative) Ethyl Alcohol ( - 10) mg/dL SARS-CoV-2 (PCR) (Negative) Point of Care Testing Glucose POC 140 Urine Dip Bedside Urine Glucose 1000 mg/dl Bedside Urine Bilirubin - Negative Bedside Urine Ketone +/- 5 Urine Specific [place] 1.025 Bedside Urine Occult Blood - Negative Bedside Urine pH 6 Bedside Urine Protein - Negative Bedside Urine Urobilinogen - Negative Bedside Urine Nitrite - Negative Bedside Urine Leukocytes - Negative Esterase MDM Narrative Medical decision making narrative: The patient is a 59-year-old male with history of schizoaffective disorder who presents with a chief complaint of hallucinations instructing him to kill himself in various ways. These methods includes knives and guns, which he states he has access to at his home, as well as by driving off of a bridge or other vehicular based way. The patient states that he would like to get help, that he has not felt this poorly in a very long time and he thinks that this was brought on by increased stress at home due to his parents health. He would like to seek voluntary treatment. Unfortunately no oncology social work in the emergency department today, patient has been calm and cooperative throughout his stay in the ER. [facility]'s clinical [facility] unfortunately will not accept him without official oncology social work evaluation. They states if a oncology social work evaluate him, we can really request a bed for the patient. There are no beds at [facility]. [facility] was contacted several times however are busy with other evaluations and will contact us with a can review his paperwork. The patient had an episode of nausea during his stay, was given Zofran and felt better. He complains of anxiety throughout his stay in the ER, was given Ativan and hydroxyzine. Patient had negative troponin and negative repeat troponin, which were taken as the patient states he has been ?having more chest pains given the anxiety. Patient signed out to Dr Jimenez at 20:10 transfer pending, patient has been calm and cooperative throughout his stay in the ER. <Ramesh Jimenez, DO - Last Filed: 07/04/20 01:25> Lab Data Labs: Lab Results 07/03/20 07/03/20 07/03/20 Range/Units 15:31 15:31 15:40 WBC (4.5-11.0) X10^3/uL RBC (4.5-5.9) X10^6/uL Hgb (13.5-17.5) g/dL Hct (41-53) % MCV (80-100) fL MCH (26-34) PG MCHC (30-36) % RDW (11.6-14.8) % Plt Count (150-400) X10^3/uL Neut % (Auto) (50-75) % Lymph % (Auto) (25-40) % [place] % (Auto) (3-14) % Eos % (Auto) (2-4) % Baso % (Auto) (0-2) % Neut # (Auto) (3572-8635) /uL Lymph # (Auto) (4044-2557) /uL [place] # (Auto) (0-900) /uL Eos # (Auto) (0-450) /uL Baso # (Auto) (0-100) /uL PT 13.6 H (10.1-12.7) SECONDS INR 1.2 (0.9-1.3) APTT 26 L D (26.4-36.2) SECONDS Sodium 136 L (137-145) mmol/L Potassium 3.9 (3.4-5.1) mmol/L Chloride 104 (98-107) mmol/L Carbon Dioxide 22 (22-32) mmol/L BUN 14 (9-20) mg/dL Creatinine 1.02 (0.66-1.25) mg/dL Estimated GFR > 60.0 (>60) mL/min BUN/Creatinine Ratio 13.7 (6-22) Glucose 260 H (70-100) mg/dL Calcium 9.2 (8.4-10.2) mg/dL Total Bilirubin 0.2 (0.2-1.3) mg/dL AST 25 (17-59) IU/L ALT 28 (<50) IU/L Alkaline Phosphatase 77 (38-126) U/L Total Creatine Kinase 281 H (55-170) U/L CK-MB (CK-2) 2.32 (<2.37) ng/mL CK-MB (CK-2) Rel Index 0.8 L (1.5-5.0) % Troponin I < 0.012 (0.01-0.034) ng/mL Total Protein 6.2 L (6.3-8.2) g/dL Albumin 3.7 (3.5-5.0) g/dL Globulin 2.5 (1.7-4.1) g/dL Albumin/Globulin Ratio 1.5 (1.0-2.8) TSH 0.561 (0.47-4.68) uIU/mL Salicylates < 1.0 (<20) mg/dL U Opiates 300ng/mL cut (Negative) Ur Oxycodone Screen (Negative) Urine Methadone Screen (Negative) Acetaminophen < 10 L (10-30) ug/mL Ur Barbiturates Screen (Negative) U Tricyclic Antidepress (Negative) Ur Phencyclidine Scrn (Negative) Ur Amphetamines Screen (Negative) U Methamphetamines Scrn (Negative) Ur MDMA Scrn (Ecstasy) (Negative) U Benzodiazepines Scrn (Negative) Urine Cocaine Screen (Negative) U Marijuana (THC) Screen (Negative) Ethyl Alcohol < 10 ( - 10) mg/dL SARS-CoV-2 (PCR) (Negative) 07/03/20 07/03/20 07/03/20 Range/Units 15:48 15:49 15:55 WBC 5.4 (4.5-11.0) X10^3/uL RBC 4.60 (4.5-5.9) X10^6/uL Hgb 13.6 (13.5-17.5) g/dL Hct 40.4 L (41-53) % MCV 87.8 (80-100) fL MCH 29.5 (26-34) PG MCHC 33.6 (30-36) % RDW 15.0 H (11.6-14.8) % Plt Count 165 (150-400) X10^3/uL Neut % (Auto) 71.8 (50-75) % Lymph % (Auto) 19.7 L (25-40) % [place] % (Auto) 7.0 (3-14) % Eos % (Auto) 1.1 L (2-4) % Baso % (Auto) 0.4 (0-2) % Neut # (Auto) 3900 (0155-3447) /uL Lymph # (Auto) 1100 (3931-1356) /uL [place] # (Auto) 400 (0-900) /uL Eos # (Auto) 100 (0-450) /uL Baso # (Auto) 0 (0-100) /uL PT (10.1-12.7) SECONDS INR (0.9-1.3) APTT (26.4-36.2) SECONDS Sodium (137-145) mmol/L Potassium (3.4-5.1) mmol/L Chloride (98-107) mmol/L Carbon Dioxide (22-32) mmol/L BUN (9-20) mg/dL Creatinine (0.66-1.25) mg/dL Estimated GFR (>60) mL/min BUN/Creatinine Ratio (6-22) Glucose (70-100) mg/dL Calcium (8.4-10.2) mg/dL Total Bilirubin (0.2-1.3) mg/dL AST (17-59) IU/L ALT (<50) IU/L Alkaline Phosphatase (38-126) U/L Total Creatine Kinase (55-170) U/L CK-MB (CK-2) (<2.37) ng/mL CK-MB (CK-2) Rel Index (1.5-5.0) % Troponin I (0.01-0.034) ng/mL Total Protein (6.3-8.2) g/dL Albumin (3.5-5.0) g/dL Globulin (1.7-4.1) g/dL Albumin/Globulin Ratio (1.0-2.8) TSH (0.47-4.68) uIU/mL Salicylates (<20) mg/dL U Opiates 300ng/mL cut Negative (Negative) Ur Oxycodone Screen Negative (Negative) Urine Methadone Screen Negative (Negative) Acetaminophen (10-30) ug/mL Ur Barbiturates Screen Negative (Negative) U Tricyclic Antidepress Negative (Negative) Ur Phencyclidine Scrn Negative (Negative) Ur Amphetamines Screen Negative (Negative) U Methamphetamines Scrn Negative (Negative) Ur MDMA Scrn (Ecstasy) Negative (Negative) U Benzodiazepines Scrn Negative (Negative) Urine Cocaine Screen Negative (Negative) U Marijuana (THC) Screen Negative (Negative) Ethyl Alcohol ( - 10) mg/dL SARS-CoV-2 (PCR) Negative (Negative) 07/03/20 Range/Units 18:16 WBC (4.5-11.0) X10^3/uL RBC (4.5-5.9) X10^6/uL Hgb (13.5-17.5) g/dL Hct (41-53) % MCV (80-100) fL MCH (26-34) PG MCHC (30-36) % RDW (11.6-14.8) % Plt Count (150-400) X10^3/uL Neut % (Auto) (50-75) % Lymph % (Auto) (25-40) % Mcculloch % (Auto) (3-14) % Eos % (Auto) (2-4) % Baso % (Auto) (0-2) % Neut # (Auto) (2691-5635) /uL Lymph # (Auto) (7512-9464) /uL M[place]ulloch # (Auto) (0-900) /uL Eos # (Auto) (0-450) /uL Baso # (Auto) (0-100) /uL PT (10.1-12.7) SECONDS INR (0.9-1.3) APTT (26.4-36.2) SECONDS Sodium (137-145) mmol/L Potassium (3.4-5.1) mmol/L Chloride (98-107) mmol/L Carbon Dioxide (22-32) mmol/L BUN (9-20) mg/dL Creatinine (0.66-1.25) mg/dL Estimated GFR (>60) mL/min BUN/Creatinine Ratio (6-22) Glucose (70-100) mg/dL Calcium (8.4-10.2) mg/dL Total Bilirubin (0.2-1.3) mg/dL AST (17-59) IU/L ALT (<50) IU/L Alkaline Phosphatase (38-126) U/L Total Creatine Kinase 210 H (55-170) U/L CK-MB (CK-2) 1.49 (<2.37) ng/mL CK-MB (CK-2) Rel Index 0.7 L (1.5-5.0) % Troponin I < 0.012 (0.01-0.034) ng/mL Total Protein (6.3-8.2) g/dL Albumin (3.5-5.0) g/dL Globulin (1.7-4.1) g/dL Albumin/Globulin Ratio (1.0-2.8) TSH (0.47-4.68) uIU/mL Salicylates (<20) mg/dL U Opiates 300ng/mL cut (Negative) Ur Oxycodone Screen (Negative) Urine Methadone Screen (Negative) Acetaminophen (10-30) ug/mL Ur Barbiturates Screen (Negative) U Tricyclic Antidepress (Negative) Ur Phencyclidine Scrn (Negative) Ur Amphetamines Screen (Negative) U Methamphetamines Scrn (Negative) Ur MDMA Scrn (Ecstasy) (Negative) U Benzodiazepines Scrn (Negative) Urine Cocaine Screen (Negative) U Marijuana (THC) Screen (Negative) Ethyl Alcohol ( - 10) mg/dL SARS-CoV-2 (PCR) (Negative) Point of Care Testing Glucose POC 140 Urine Dip Bedside Urine Glucose 1000 mg/dl Bedside Urine Bilirubin - Negative Bedside Urine Ketone +/- 5 Urine Specific [place] 1.025 Bedside Urine Occult Blood - Negative Bedside Urine pH 6 Bedside Urine Protein - Negative Bedside Urine Urobilinogen - Negative Bedside Urine Nitrite - Negative Bedside Urine Leukocytes - Negative Esterase MDM Narrative Medical decision making narrative: Dr Jimenez: Received turned over. Reviewed patient's history and physical and labs. He is medically cleared. He is well known to myself as I have seen both him and his family in the emergency department in the past. He is calm. He is having auditory hallucinations that are telling him to kill himself. He would like help with the symptoms. He was recently switched to new medication because the prior medicines were not work for him. He was sent to us by his mental health provider. Attempt to find voluntary placement has thus far been unsuccessful. Erick Matute states that he is unable to come there because of his long-term anticoagulation use. A social Work consult has been placed. He will continue to remain in the emergency department until social Work evaluates him tomorrow. Care turned over to day provider change of shift to follow up and disposition. Discharge Plan Departure Prescriptions: No Action gabapentin 300 mg capsule 600 mg PO TID RF: 0 insulin glargine 100 unit/mL (3 mL) insulin pen 35 unit Sub-Q BID RF: 0 lorazepam 1 mg tablet 1 mg PO DAILY PRN (Reason: agitation) Qty: 10 RF: 5 fenofibrate 160 mg tablet 160 mg PO DAILY RF: 0 lurasidone 80 mg tablet 80 mg PO QPM Qty: 90 RF: 0 divalproex [Depakote ER] 500 mg tablet extended release 24 hr See Rx Instructions PO .COMPLEX Qty: 360 RF: 1 metformin [Glucophage XR] 500 MG tablet extended release 24 hr 1,000 mg PO BIDCC Qty: 60 RF: 0 nitroglycerin [Nitrostat] 0.4 mg Tablet, Sublingual 0.4 mg Sublingual Q5 MIN PRN PRN (Reason: Chest Pain) RF: 0 atorvastatin 40 mg Tablet 40 mg PO BEDTIME RF: 0 levothyroxine [Synthroid] 75 mcg Tablet 75 mcg PO DAILY RF: 0 insulin aspart U-100 100 unit/mL Insulin Pen See Rx Instructions .ROUTE .COMPLEX RF: 0 aspirin 81 mg Tablet,Delayed Release (Dr/Ec) 81 mg PO DAILY RF: 0 Xarelto 20 mg Tablet 20 mg PO QPM RF: 0 metoclopramide HCl [Reglan] 10 mg tablet 10 mg PO Q6H PRN (Reason: nausea and vomiting) Qty: 20 RF: 0 oxycodone 5 mg capsule 5 mg PO Q6H PRN (Reason: post-op pain) Qty: 30 RF: 0 hydrochlorothiazide 25 mg Tablet 25 mg PO DAILY RF: 0 metoprolol succinate [Toprol XL] 25 MG tablet extended release 24 hr 25 mg PO DAILY RF: 0 simvastatin 40 mg Tablet 40 mg PO DAILY RF: 0 insulin aspart U-100 [Novolog U-100 Insulin aspart] 100 unit/mL Solution See Rx Instructions .ROUTE .COMPLEX RF: 0 lisinopril 40 mg Tablet 40 mg PO DAILY RF: 0 isosorbide mononitrate 30 mg Tablet Extended Release 24 Hr 30 mg PO QAM RF: 0 furosemide 80 mg Tablet 80 mg PO DAILY RF: 0 aripiprazole 30 mg Tablet 30 mg PO DAILY RF: 0 Lantus Solostar U-100 Insulin 100 unit/mL (3 mL) Insulin Pen See Rx Instructions .ROUTE .COMPLEX RF: 0 ergocalciferol (vitamin D2) 1,250 mcg (50,000 unit) capsule 1,250 mcg PO QWEEK RF: 0
[2020-07-03 16:01] LABS: Acetaminophen < 10 ug/mL (10-30); Alanine Aminotransferase 28 IU/L (<50); Albumin 3.7 g/dL (3.5-5.0); Albumin Globulin Ratio 1.5 (1.0-2.8); Alkaline Phosphatase 77 U/L (38-126); Aspartate Aminotransferase 25 IU/L (17-59); BUN Creatinine Ratio 13.7 (6-22); Bilirubin Total 0.2 mg/dL (0.2-1.3); Blood Urea Nitrogen 14 mg/dL (9-20); Calcium 9.2 mg/dL (8.4-10.2); Carbon Dioxide 22 mmol/L (22-32); Chloride 104 mmol/L (98-107); Creatine Kinase 281 U/L (55-170); Estimated Glomerular Filt Rate > 60.0 mL/min (>60); Globulin 2.5 g/dL (1.7-4.1); Glucose 260 mg/dL (70-100); Salicylate < 1.0 mg/dL (<20); Sodium 136 mmol/L (137-145); Total Protein 6.2 g/dL (6.3-8.2)
[2020-07-03 16:02] LABS: Ethanol (ETOH) < 10 mg/dL; HEMOLYSIS < 15 (0-50)
[2020-07-03 16:03] LABS: Potassium 3.9 mmol/L (3.4-5.1)
[2020-07-03 16:06] LABS: COVID19 -Nasal RAPID Negative (Negative)
[2020-07-03 16:06] LABS: Add Manual Diff / Slide Review NO; Basophils Absolute Auto 0 /uL (0-100); Basophils Percent Auto 0.4 % (0-2); Eosinophils Absolute Auto 100 /uL (0-450); Eosinophils Percent Auto 1.1 % (2-4); Hematocrit 40.4 % (41-53); Hemoglobin 13.6 g/dL (13.5-17.5); Lymphocytes Absolute Auto 1100 /uL (1100-4500); Lymphocytes Percent Auto 19.7 % (25-40); Mean Corpuscular HGB Conc 33.6 % (30-36); Mean Corpuscular Hemoglobin 29.5 PG (26-34); Mean Corpuscular Volume 87.8 fL (80-100); Monocytes Absolute Auto 400 /uL (0-900); Neutrophils Absolute Auto 3900 /uL (1500-7000); Neutrophils Percent Auto 71.8 % (50-75); Platelet Count 165 X10^3/uL (150-400); White Blood Cell Count 5.4 X10^3/uL (4.5-11.0)
[2020-07-03 16:15] LABS: UR Morphine/Opiate cutoff 300 Negative (Negative); Ur Creatinine Normal (Normal); Ur Specific Gravity Normal (Normal); Urine Amphetamines Negative (Negative); Urine Barbiturates Negative (Negative); Urine Benzodiazepines Negative (Negative); Urine Cocaine Negative (Negative); Urine MDMA Negative (Negative); Urine Methadone Negative (Negative); Urine Methamphetamines Negative (Negative); Urine Oxycodone Negative (Negative); Urine Phencyclidine Negative (Negative); Urine Tetrahydrocannabinol Negative (Negative); Urine Tricyclic Antidepressant Negative (Negative); Urine pH Normal (Normal)
[2020-07-03 16:16] LABS: CKMB % Relative Index 0.8 % (1.5-5.0); Creatine Kinase MB 2.32 ng/mL (<2.37)
[2020-07-03 16:20] LABS: Troponin I < 0.012 ng/mL (0.01-0.034)
[2020-07-03 16:32] LABS: Thyroid Stimulating Hormone 0.561 uIU/mL (0.47-4.68)
[2020-07-03] MEDS: LORazepam 0.5 MG TABLET 1 MG PO (16:38)
--- NOTE | 2020-07-03 17:30 | PC.NURSE ---
Verified that SANDRA Triana still wanted to give 30u Novolog to pt with his new BG of 215. I also verified with pt that his dinner time dose of Novolog was 30 u. Okay with both parties to go ahead with 30 u
[2020-07-03] MEDS: INSULIN ASPART 100 UNIT/ML 10ML VIAL 30 UNIT SUBCUT (17:33)
[2020-07-03] MEDS: hydrOXYzine pamoate 25 MG CAPSULE 50 MG PO (17:55)
--- NOTE | 2020-07-03 18:19 | PC.NURSE ---
Reported to nurse at 1820 that patient was feeling nauseous. Provided emesis bag and offered water.
[2020-07-03 18:35] LABS: Creatine Kinase 210 U/L (55-170)
[2020-07-03 18:47] LABS: Troponin I < 0.012 ng/mL (0.01-0.034)
[2020-07-03] MEDS: ONDANSETRON 4 MG ODT SL (18:47)
[2020-07-03 18:50] LABS: CKMB % Relative Index 0.7 % (1.5-5.0); Creatine Kinase MB 1.49 ng/mL (<2.37)
[2020-07-03] MEDS: DIVALPROEX ER 250 MG TAB 1500 MG PO (19:58)
[2020-07-03] MEDS: RIVAROXABAN 10 MG TABLET 20 MG PO (19:58)
[2020-07-03] MEDS: ATORVASTATIN 20 MG TABLET 40 MG PO (19:58)
[2020-07-03] MEDS: GABAPENTIN 600 MG TABLET PO (19:59)
[2020-07-03] MEDS: METFORMIN XR 500 MG TABLET 1000 MG PO (19:59)
[2020-07-03] MEDS: INSULIN GLARGINE 100 UNIT/ML 3ML PEN 35 UNIT SUBCUT (20:41)
[2020-07-03] MEDS: OLANZapine ODT 10 MG TAB PO (22:07)
[2020-07-04] MEDS: INSULIN ASPART 100 UNIT/ML 10ML VIAL 20 UNIT SUBCUT (08:31)
[2020-07-04] MEDS: INSULIN GLARGINE 100 UNIT/ML 3ML PEN 35 UNIT SUBCUT (08:32)
[2020-07-04 09:00] VITALS: BP 144/63; PULSE 61; RESP 22; TEMP 36.8; O2SAT 96
[2020-07-04] MEDS: INSULIN ASPART 100 UNIT/ML 10ML VIAL 25 UNIT SUBCUT (12:17)
--- NOTE | 2020-07-04 12:19 | PC.NURSE ---
Pt's BG is 101. Pt states he would normally take half his normal dose of Novolog which is 12.5u with his BG of 101. Cleared with .
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
[2020-07-04 15:20] VITALS: BP 164/82; PULSE 72; RESP 20; TEMP 37; O2SAT 97
[2020-07-04] MEDS: BENZOCAINE/MENTHOL 1 LOZ PKT 1 EACH PO (16:47)
[2020-07-04] MEDS: INSULIN ASPART 100 UNIT/ML 10ML VIAL 30 UNIT SUBCUT (17:27)
--- NOTE | 2020-07-04 18:46 | CM.SWNOTE ---
UNDERWATER PHOTOGRAPHER note Following assessment, UNDERWATER PHOTOGRAPHER contacts the following hospitals seeking placement: -[facility]- unable to accept due to medical complexity -[facility]- unable to accept due to CPAP prescription -[facility]- No open beds -[facility]- No open beds -[facility]: Accepts Darlene from [facility] calls UNDERWATER PHOTOGRAPHER to accept patient. Details of acceptance placed in comments box in EMR and detailed below: Accepted to [facility]. Check in time 2200. Accepting Provider: MD Jaime. Intake contact: Darlene. Nurse to Nurse [phone]. UNDERWATER PHOTOGRAPHER informs [facility] [place]ena, MEMO Kelsey, RN Jaimie. [facility] to arrange transport. RN to inform Dr. Jimenez. UNDERWATER PHOTOGRAPHER informs patient who remains agreeable with plan. Plan: Patient to transfer to [facility] to receive inpatient hospitalization. GUANACO Ley
[2020-07-04 19:15] VITALS: BP 197/79; PULSE 85; RESP 18; TEMP 37.1; O2SAT 98
[2020-07-04] MEDS: ARIPiprazole 10 MG TABLET 30 MG PO (19:16)
[2020-07-04] MEDS: GABAPENTIN 600 MG TABLET PO (19:17)
[2020-07-04] MEDS: ATORVASTATIN 20 MG TABLET 40 MG PO (19:17)
[2020-07-04] MEDS: FUROSEMIDE 20 MG TABLET 30 MG PO (19:17)
[2020-07-04 19:32] VITALS: BP 163/68; PULSE 85; RESP 18; O2SAT 97
--- NOTE | 2020-07-04 19:35 | PC.NURSE ---
Patient being discharged
== END 2020-07-04 19:54 ==
PROVIDERS: Nurse Practitioner Family; Emergency Provider Emergency Medicine; PCP Family Medicine
DX: R45.851 Suicidal ideations (principal); F25.1 Schizoaffective disorder, depressive type; Z20.822 Contact with and (suspected) exposure to COVID-19; E11.9 Type 2 diabetes mellitus without complications; Z79.4 Long term (current) use of insulin
CPT/HCPCS: 36415; 80053; 80305; 80320; 80329; 81003; 82550; 82553; 82962; 84443; 84484; 85025; 85610; 85730; 87635; 93005; 93010; 96372; 99284; C9803; G0480

== ENCOUNTER 2020-10-29 13:45 | Emergency (ER) | payer OTHER, SELFPAY ==
[2020-06-28 14:56] VITALS: BMI 45.5
[2020-10-29] VITALS (31 sets, daily range): BP systolic 131–167; BP diastolic 67–87; PULSE 72–112; RESP 12–24; TEMP 36.6; O2SAT 93–100
--- NOTE | 2020-10-29 13:49 | DI.RAD.S_ITS ---
PROCEDURE: XR CHEST 1V INDICATIONS: chest pain TECHNIQUE: One view of the chest was acquired. COMPARISON: [facility], CR, XR CHEST 1V, 05/15/2020, 17:49. [facility], CR, XR CHEST 1V, 03/25/2020, 3:43. FINDINGS: Surgical changes and devices: None. Lungs and pleura: Lungs are difficult to accurately assess due to mild interstitial prominence and reduced inspiration select none sternotomy wires, presumed prior CABG.. No pleural effusions or pneumothorax. Mediastinum: Mediastinal contours appear normal. Heart size is normal. Bones and chest wall: No suspicious bony lesions. Overlying soft tissues appear unremarkable. IMPRESSION: Mild interstitial prominence, prior CABG, no definite acute disease. Dictated by: Daryl Coffman M.D. on 10/29/2020 at 14:30 Approved by: Daryl Coffman M.D. on 10/29/2020 at 14:31
[2020-10-29 14:19] LABS: Add Manual Diff / Slide Review NO; Basophils Absolute Auto 100 /uL (0-100); Basophils Percent Auto 1.2 % (0-2); Eosinophils Absolute Auto 100 /uL (0-450); Eosinophils Percent Auto 1.1 % (2-4); Hemoglobin 13.5 g/dL (13.5-17.5); Lymphocytes Absolute Auto 2600 /uL (1100-4500); Lymphocytes Percent Auto 34.9 % (25-40); Mean Corpuscular HGB Conc 33.8 % (30-36); Mean Corpuscular Hemoglobin 28.6 PG (26-34); Mean Corpuscular Volume 84.7 fL (80-100); Monocytes Absolute Auto 600 /uL (0-900); Monocytes Percent Auto 8.1 % (3-14); Neutrophils Absolute Auto 4100 /uL (1500-7000); Neutrophils Percent Auto 54.7 % (50-75); Platelet Count 167 X10^3/uL (150-400); Red Blood Cell Count 4.73 X10^6/uL (4.5-5.9); White Blood Cell Count 7.5 X10^3/uL (4.5-11.0)
[2020-10-29 14:32] LABS: Alanine Aminotransferase 23 IU/L (<50); Albumin 4.3 g/dL (3.5-5.0); Albumin Globulin Ratio 1.3 (1.0-2.8); Alkaline Phosphatase 107 U/L (38-126); Aspartate Aminotransferase 26 IU/L (17-59); Bilirubin Total 0.5 mg/dL (0.2-1.3); Blood Urea Nitrogen 23 mg/dL (9-20); Calcium 9.6 mg/dL (8.4-10.2); Carbon Dioxide 19 mmol/L (22-32); Chloride 101 mmol/L (98-107); Creatine Kinase 201 U/L (55-170); Estimated Glomerular Filt Rate > 60.0 mL/min (>60); Globulin 3.2 g/dL (1.7-4.1); Glucose 332 mg/dL (80-110); HEMOLYSIS 37 (0-50); Lipase 100 U/L (23-300); Potassium 4.3 mmol/L (3.4-5.1); Sodium 136 mmol/L (137-145); Total Protein 7.5 g/dL (6.3-8.2)
[2020-10-29 14:44] LABS: Troponin I < 0.012 ng/mL (0.01-0.034)
[2020-10-29 14:47] LABS: CKMB % Relative Index 0.9 % (1.5-5.0); Creatine Kinase MB 1.78 ng/mL (<2.37)
--- NOTE | 2020-10-29 19:13 | ED.CHESTPAIN ---
HPI - Chest Pain General Chief Complaint: Chest Pain Stated Complaint: chest pain, high BP all day Time Seen by Provider: 10/29/20 19:13 Source: patient and old records reviewed Mode of arrival: Ambulatory Limitations: no limitations History of Present Illness HPI narrative: This is a 60-year-old male who comes to the emergency department with complaint of elevated blood pressure. Patient states it was 190/100 earlier today and then down to 160s over [address] Jovel his psychiatrist. Patient states he had taken his a.m. medications. He has not had his afternoon/evening medications. Patient is having chest pain today. He states he always has chest pain a little bit worse than normal he describes it as 7/10 he states it has not changed particularly in character. No fevers, no cold cough or congestion, he has had some mild runny nose. He has had some mild nausea but no vomiting. He has had some mild belly cramping but denies any issues with bowel movements or urination. Patient has not appreciate any swelling in his extremities. He took 2 of his sublingual nitro which did not change his symptoms. He states sometimes nitrous helpful in sometimes it is not. He follows regular with Cardiology and has an appointment this Wednesday with Dr. Bar. Patient's glucose was noted to be elevated and he states it has been up lately in the past 2 weeks. He has not had his short-acting 30 units of NovoLog today and has not had his evening long-acting dose of 35 units of insulin glargine. Related Data Home Medications Medication Instructions Recorded Confirmed metformin 500 mg tablet,extended 1,000 mg PO BIDCC #60 tab 12/25/16 10/29/20 release 24 hr (Glucophage XR) atorvastatin 40 mg tablet 40 mg PO BEDTIME 10/12/17 10/29/20 insulin aspart U-100 100 unit/mL See Rx Instructions .ROUTE .COMPLEX 10/12/17 10/29/20 (3 mL) subcutaneous pen levothyroxine 75 mcg tablet 75 mcg PO DAILY 10/12/17 10/29/20 (Synthroid) nitroglycerin 0.4 mg sublingual 0.4 mg SUBLINGUAL Q5 MIN PRN PRN 10/12/17 10/29/20 tablet (Nitrostat) hydrochlorothiazide 25 mg tablet 25 mg PO DAILY 05/26/18 10/29/20 metoprolol succinate 25 mg 25 mg PO DAILY 05/26/18 10/29/20 tablet,extended release 24 hr (Toprol XL) fenofibrate 160 mg tablet 160 mg PO DAILY 12/16/18 10/29/20 aspirin 81 mg tablet,delayed 81 mg PO DAILY 02/16/19 10/29/20 release rivaroxaban 20 mg tablet (Xarelto) 20 mg PO QPM 02/16/19 10/29/20 insulin glargine 100 unit/mL (3 35 unit SUB-Q BID ml 08/25/19 10/29/20 mL) subcutaneous pen gabapentin 300 mg capsule 600 mg PO TID cap 11/29/19 10/29/20 ergocalciferol (vitamin D2) 1,250 1,250 mcg PO QWEEK 11/30/19 10/29/20 mcg (50,000 unit) capsule furosemide 80 mg tablet 80 mg PO DAILY 05/07/20 10/29/20 insulin aspart U-100 100 unit/mL See Rx Instructions .ROUTE .COMPLEX 05/07/20 10/29/20 subcutaneous solution (Novolog U-100 Insulin aspart) insulin glargine 100 unit/mL (3 See Rx Instructions .ROUTE .COMPLEX 05/07/20 10/29/20 mL) subcutaneous pen (Lantus Solostar U-100 Insulin) isosorbide mononitrate 30 mg 30 mg PO QAM 05/07/20 10/29/20 tablet,extended release 24 hr lisinopril 40 mg tablet 40 mg PO DAILY 05/07/20 10/29/20 simvastatin 40 mg tablet 40 mg PO DAILY 05/07/20 10/29/20 Previous Rx's Medication Instructions Recorded lorazepam 1 mg tablet 1 mg PO DAILY PRN #10 tab 02/06/20 metoclopramide HCl 10 mg tablet 10 mg PO Q6H PRN #20 tab 04/26/20 (Reglan) divalproex 500 mg tablet,extended See Rx Instructions PO .COMPLEX 04/30/20 release 24 hr (Depakote ER) #360 tab lurasidone 80 mg tablet 80 mg PO QPM #90 tab 09/20/20 Allergies Allergy/AdvReac Type Severity Reaction Status Date / Time Penicillins [PENICILLINS] Allergy Severe Swelling Verified 10/29/20 12:52 of Lip/Tongue/Throat quetiapine AdvReac Intermediate oversedation Verified 10/29/20 12:August Alluna Sleep AdvReac Severe Difficulty Uncoded 10/29/20 12:52 Swallowing Review of Systems Review of Systems ROS Unobtainable: All systems reviewed & are unremarkable except as noted in HPI and below Patient History Medical History Atypical chest pain CAD (coronary artery disease) Carpal tunnel syndrome of right wrist CHF (congestive heart failure) Chronic left shoulder pain Complex tear of medial meniscus of left knee as current injury COPD (chronic obstructive pulmonary disease) Diabetes type 2, controlled Diabetic neuropathy HTN (hypertension) Hyperlipidemia Insomnia 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 Social History marital status: unmarried,single details: lives with his parents household members: family lives independently: Yes caregiver/support person: Yes housing: house pets and animals: Yes Smoking Status: Former smoker alcohol intake: never substance use type: does not use Smoking Status: Former smoker alcohol intake frequency: 0-2 drinks per day Substance Use Type: does not use Exam Narrative Exam Narrative: GENERAL: Alert and oriented x three, male in mild distress. HEENT: Head normocephalic, atraumatic, EOMI, pupils reactive, face symmetric, moist mucous membranes NECK: Supple, full range of motion CARDIOVASCULAR: Regular rate and rhythm without murmurs, rubs or gallops. No JVD. No swelling bilateral lower extremities. RESPIRATORY: Breath sounds equal bilaterally, no wheezes rales or rhonchi. ABDOMEN: Soft, nontender. Nondistended. Normoactive bowel sounds all 4 quadrants. No guarding or rebound, rigidity, no mass : No CVA tenderness EXTREMITIES: Normal range of motion, no clubbing or edema. Neurovascularly intact NEUROLOGICAL: Cranial nerves II through XII grossly intact. Moving all extremities SKIN: Warm, dry, no petechiae, no rashes or lesions. Initial Vital Signs Initial Vital Signs: Vital Signs Temperature 97.9 F 10/29/20 13:47 Pulse Rate 112 H 10/29/20 13:47 Respiratory Rate 24 10/29/20 13:47 Blood Pressure 142/79 H 10/29/20 13:47 Pulse Oximetry 95 10/29/20 13:47 Course Orders Ordered: ED Orders 10/29/20 21:04 Venous Blood Gas Stat 10/29/20 21:19 Basic Metabolic Panel Stat Discontinued Medications Sodium Chloride (Normal Saline 0.9%) 1,000 mls @ 1,000 mls/hr IV BOLUS ONE Stop: 10/29/20 20:16 Last Infusion: 10/29/20 20:45 Dose: 0 mls/hr Documented by: Admin: 10/29/20 19:56 Dose: 1,000 mls/hr Documented by: JOSE Insulin Glargine (Insulin Glargine 100 Unit/Ml 3ml Pen) 35 unit SUBCUT NOW ONE Stop: 10/29/20 19:33 Last Admin: 10/29/20 19:56 Dose: 35 unit Documented by: JOSE Cosigned by: LANE Lisinopril (Lisinopril 20 Mg Tablet) 40 mg PO NOW ONE Stop: 10/29/20 19:32 Last Admin: 10/29/20 19:55 Dose: 40 mg Documented by: JOSE Metoprolol Succinate (Metoprolol Er 25 Mg Tablet) 25 mg PO NOW ONE Stop: 10/29/20 19:32 Last Admin: 10/29/20 19:56 Dose: 25 mg Documented by: JOSE Morphine Sulfate (Morphine 4 Mg/Ml Inj) 4 mg IV NOW ONE Stop: 10/29/20 19:32 Last Admin: 10/29/20 19:55 Dose: 4 mg Documented by: JOSE Morphine Sulfate (Morphine 4 Mg/Ml Inj) 4 mg IV NOW ONE Stop: 10/29/20 22:04 Last Admin: 10/29/20 22:25 Dose: 4 mg Documented by: JOSE Reevaluation(s) Reevaluation #1: Patient states chest pain improved with his pain medications. He has been up and ambulated to the bathroom several times. His blood pressure improved to the 140 range. Patient's BMP has improved his anion gap is decreased, he is not acidotic and his CO2 has improved to 21 with glucose 210 on rechecks, he is not acidotic. Patient does not appear to be in DKA. He received fluids and his regular long-acting insulin. Discussed with patient he is comfortable returning home he feels back at his normal. Vital Signs Vital signs: Vital Signs - 8 hr 10/29/20 22:00 10/29/20 22:01 10/29/20 22:30 Pulse Rate 79 81 84 Respiratory Rate 20 16 18 Blood Pressure 146/77 H Pulse Oximetry 95 97 96 MDM - Chest Pain Lab Data Result diagrams: 10/29/20 14:10 10/29/20 21:19 Labs: Lab Results 10/29/20 10/29/20 10/29/20 Range/Units 14:10 14:10 19:20 WBC 7.5 (4.5-11.0) X10^3/uL RBC 4.73 (4.5-5.9) X10^6/uL Hgb 13.5 (13.5-17.5) g/dL Hct 40.0 L (41-53) % MCV 84.7 (80-100) fL MCH 28.6 (26-34) PG MCHC 33.8 (30-36) % RDW 15.0 H (11.6-14.8) % Plt Count 167 (150-400) X10^3/uL Neut % (Auto) 54.7 (50-75) % Lymph % (Auto) 34.9 (25-40) % [place] % (Auto) 8.1 (3-14) % Eos % (Auto) 1.1 L (2-4) % Baso % (Auto) 1.2 (0-2) % Neut # (Auto) 4100 (5468-7431) /uL Lymph # (Auto) 2600 (2580-8368) /uL [place] # (Auto) 600 (0-900) /uL Eos # (Auto) 100 (0-450) /uL Baso # (Auto) 100 (0-100) /uL VBG pH (7.33-7.43) VBG pCO2 (45-50) mmHg VBG pO2 (35-45) mmHg VBG HCO3 (23-28) mmol/L VBG Total CO2 (24-29) mmol/L VBG O2 Saturation (70-75) % VBG Base Excess (0-4) mmol/L Sodium 136 L (137-145) mmol/L Potassium 4.3 (3.4-5.1) mmol/L Chloride 101 (98-107) mmol/L Carbon Dioxide 19 L (22-32) mmol/L BUN 23 H (9-20) mg/dL Creatinine 1.00 (0.66-1.25) mg/dL Estimated GFR > 60.0 (>60) mL/min BUN/Creatinine Ratio 23.0 H (6-22) Glucose 332 H (80-110) mg/dL Calcium 9.6 (8.4-10.2) mg/dL Total Bilirubin 0.5 (0.2-1.3) mg/dL AST 26 (17-59) IU/L ALT 23 (<50) IU/L Alkaline Phosphatase 107 (38-126) U/L Total Creatine Kinase 201 H (55-170) U/L CK-MB (CK-2) 1.78 (<2.37) ng/mL CK-MB (CK-2) Rel Index 0.9 L (1.5-5.0) % Troponin I < 0.012 < 0.012 (0.01-0.034) ng/mL Total Protein 7.5 (6.3-8.2) g/dL Albumin 4.3 (3.5-5.0) g/dL Globulin 3.2 (1.7-4.1) g/dL Albumin/Globulin Ratio 1.3 (1.0-2.8) Lipase 100 (23-300) U/L 10/29/20 10/29/20 Range/Units 21:04 21:19 WBC (4.5-11.0) X10^3/uL RBC (4.5-5.9) X10^6/uL Hgb (13.5-17.5) g/dL Hct (41-53) % MCV (80-100) fL MCH (26-34) PG MCHC (30-36) % RDW (11.6-14.8) % Plt Count (150-400) X10^3/uL Neut % (Auto) (50-75) % Lymph % (Auto) (25-40) % [place] % (Auto) (3-14) % Eos % (Auto) (2-4) % Baso % (Auto) (0-2) % Neut # (Auto) (4445-2132) /uL Lymph # (Auto) (0159-3119) /uL [place] # (Auto) (0-900) /uL Eos # (Auto) (0-450) /uL Baso # (Auto) (0-100) /uL VBG pH 7.35 (7.33-7.43) VBG pCO2 46.2 (45-50) mmHg VBG pO2 38 (35-45) mmHg VBG HCO3 26 (23-28) mmol/L VBG Total CO2 27 (24-29) mmol/L VBG O2 Saturation 68 L (70-75) % VBG Base Excess 0.0 (0-4) mmol/L Sodium 139 (137-145) mmol/L Potassium 4.3 (3.4-5.1) mmol/L Chloride 105 (98-107) mmol/L Carbon Dioxide 21 L (22-32) mmol/L BUN 20 (9-20) mg/dL Creatinine 0.92 (0.66-1.25) mg/dL Estimated GFR > 60.0 (>60) mL/min BUN/Creatinine Ratio 21.7 (6-22) Glucose 225 H D (80-110) mg/dL Calcium 9.1 (8.4-10.2) mg/dL Total Bilirubin (0.2-1.3) mg/dL AST (17-59) IU/L ALT (<50) IU/L Alkaline Phosphatase (38-126) U/L Total Creatine Kinase (55-170) U/L CK-MB (CK-2) (<2.37) ng/mL CK-MB (CK-2) Rel Index (1.5-5.0) % Troponin I (0.01-0.034) ng/mL Total Protein (6.3-8.2) g/dL Albumin (3.5-5.0) g/dL Globulin (1.7-4.1) g/dL Albumin/Globulin Ratio (1.0-2.8) Lipase (23-300) U/L Point of Care Testing Glucose POC 210 Urine Dip Bedside Urine Glucose 250 mg/dl Bedside Urine Bilirubin - Negative Bedside Urine Ketone + 15 Urine Specific [place] 1.020 Bedside Urine Occult Blood +/- Bedside Urine pH 6.0 Bedside Urine Protein - Negative Bedside Urine Urobilinogen 0.2 Bedside Urine Nitrite - Negative Bedside Urine Leukocytes - Negative Esterase Imaging Data Extremity x-ray #1: Radiologist's Impression: [place] [id number] [place] [id number] ReportSigned Patient: Luis E Pierre RMR#: [id number]: 1960cct:[id number]/Sex: 60 / MDate of Service: 10/29/20Loc: EDAccession Number: [id number] Procedure: XR chest 1V Ordering Provider: Tsering Fisher D.O. PROCEDURE: XR CHEST 1V INDICATIONS: chest pain TECHNIQUE: One view of the chest was acquired. COMPARISON: [facility], CR, XR CHEST 1V, 05/15/2020, 17:49. [facility], CR, XR CHEST 1V, 03/25/2020, 3:43. FINDINGS: Surgical changes and devices: None. Lungs and pleura: Lungs are difficult to accurately assess due to mild interstitial prominence and reduced inspiration select none sternotomy wires, presumed prior CABG.. No pleural effusions or pneumothorax. Mediastinum: Mediastinal contours appear normal. Heart size is normal. Bones and chest wall: No suspicious bony lesions. Overlying soft tissues appear unremarkable. IMPRESSION: Mild interstitial prominence, prior CABG, no definite acute disease. Dictated by: Daryl Coffman M.D. on 10/29/2020 at 14:30 Approved by: Daryl Coffman M.D. on 10/29/2020 at 14:31 ECG Data Interpretation: Sinus rhythm rate 100 P are 156 QRS 86 and QTC of 456 left atrial enlargement, patient has Q-waves in 2 3 and AVF. No elevation. Patient has ST changes consistent with prior EKGs from 07/03/2020. EKG 2. Shows normal sinus rhythm rate of 70 7p are 182 QRS of 90 QTC of 454. Patient still has Q-waves in 2 3 AVF with same changes as before with no acute ST changes appreciated. MDM Narrative Medical decision making narrative: This is a 60-year-old male comes emergency department sent for hypertension by his psychiatric care providers. Patient states he has been taking his medications. He also notes that his sugars have been elevated recently. Patient does have chest pain he states he chronically has chest pain and it is more intense today but has not had other significant changes. He did try 2 nitro sublingually which made little difference. Patient's initial labs are somewhat concerning for DKA, is initial troponin x2 an EKG does not show acute changes. Patient was given fluids his usual dose of long-acting insulin and had his BMP rechecked and his anion gap was improving he was not acidotic, his he glucose and improved to 210 and his CO2 level improved to a more appropriate level as well. Patient felt comfortable returning home. Plan to continue his home medications. Discharge Plan Departure Patient Disposition: Home Clinical Impression: Hypertension, Atypical chest pain Instructions: DI for Atypical Chest Pain Activity Restrictions/Additional Instructions: Follow-up with your physician or telegraph equipment maintainer this week. Call for an appointment. Please monitor your blood pressures at home, keep a log and call your physician or telegraph equipment maintainer to discuss if he need to adjust her medications if it continues to be elevated. Continue home medications as prescribed. Your blood sugar was elevated today, if this is been persistent lately you may need to have her insulin readjusted I would continue to check it regularly at home. Please return for fevers, new or worsening chest pain, new changes in chest pain, shortness of breath, lightheadedness or passing out, persistent nausea or vomiting, abdominal pain, black or bloody stools, new swelling in her extremities or other new or concerning symptoms. Prescriptions: No Action gabapentin 300 mg capsule 600 mg PO TID RF: 0 insulin glargine 100 unit/mL (3 mL) insulin pen 35 unit Sub-Q BID RF: 0 lorazepam 1 mg tablet 1 mg PO DAILY PRN (Reason: agitation) Qty: 10 RF: 5 fenofibrate 160 mg tablet 160 mg PO DAILY RF: 0 divalproex [Depakote ER] 500 mg tablet extended release 24 hr See Rx Instructions PO .COMPLEX Qty: 360 RF: 1 lurasidone 80 mg tablet 80 mg PO QPM Qty: 90 RF: 1 metformin [Glucophage XR] 500 MG tablet extended release 24 hr 1,000 mg PO BIDCC Qty: 60 RF: 0 nitroglycerin [Nitrostat] 0.4 mg Tablet, Sublingual 0.4 mg Sublingual Q5 MIN PRN PRN (Reason: Chest Pain) RF: 0 atorvastatin 40 mg Tablet 40 mg PO BEDTIME RF: 0 levothyroxine [Synthroid] 75 mcg Tablet 75 mcg PO DAILY RF: 0 insulin aspart U-100 100 unit/mL Insulin Pen See Rx Instructions .ROUTE .COMPLEX RF: 0 aspirin 81 mg Tablet,Delayed Release (Dr/Ec) 81 mg PO DAILY RF: 0 Xarelto 20 mg Tablet 20 mg PO QPM RF: 0 metoclopramide HCl [Reglan] 10 mg tablet 10 mg PO Q6H PRN (Reason: nausea and vomiting) Qty: 20 RF: 0 hydrochlorothiazide 25 mg Tablet 25 mg PO DAILY RF: 0 metoprolol succinate [Toprol XL] 25 MG tablet extended release 24 hr 25 mg PO DAILY RF: 0 simvastatin 40 mg Tablet 40 mg PO DAILY RF: 0 insulin aspart U-100 [Novolog U-100 Insulin aspart] 100 unit/mL Solution See Rx Instructions .ROUTE .COMPLEX RF: 0 lisinopril 40 mg Tablet 40 mg PO DAILY RF: 0 isosorbide mononitrate 30 mg Tablet Extended Release 24 Hr 30 mg PO QAM RF: 0 furosemide 80 mg Tablet 80 mg PO DAILY RF: 0 Lantus Solostar U-100 Insulin 100 unit/mL (3 mL) Insulin Pen See Rx Instructions .ROUTE .COMPLEX RF: 0 ergocalciferol (vitamin D2) 1,250 mcg (50,000 unit) capsule 1,250 mcg PO QWEEK RF: 0 Referrals: Sandra Garland MD [Primary Care Provider] -
[2020-10-29 19:55] LABS: Troponin I < 0.012 ng/mL (0.01-0.034)
[2020-10-29] MEDS: MORPHINE 4 MG/ML INJ IV ×2 (19:55→22:25)
[2020-10-29] MEDS: lisinopriL 20 MG TABLET 40 MG PO (19:55)
[2020-10-29] MEDS: INSULIN GLARGINE 100 UNIT/ML 3ML PEN 35 UNIT SUBCUT (19:56)
[2020-10-29] MEDS: METOPROLOL ER 25 MG TABLET PO (19:56)
[2020-10-29] MEDS: SODIUM CHLORIDE 0.9% 1,000 ML 1000 ML IV (19:56)
[2020-10-29 21:36] LABS: PCO2 VBG 46.2 mmHg (45-50); pH VBG 7.35 (7.33-7.43)
[2020-10-29 21:37] LABS: HCO3 VBG 26 mmol/L (23-28); Oxygen Saturation VBG 68 % (70-75); PO2 VBG 38 mmHg (35-45); Total CO2 VBG 27 mmol/L (24-29)
[2020-10-29 21:43] LABS: BUN Creatinine Ratio 21.7 (6-22); Blood Urea Nitrogen 20 mg/dL (9-20); Calcium 9.1 mg/dL (8.4-10.2); Carbon Dioxide 21 mmol/L (22-32); Chloride 105 mmol/L (98-107); Estimated Glomerular Filt Rate > 60.0 mL/min (>60); Glucose 225 mg/dL (80-110); HEMOLYSIS 32 (0-50); Potassium 4.3 mmol/L (3.4-5.1); Sodium 139 mmol/L (137-145)
== END 2020-10-29 22:44 | disposition home or self-care (01) ==
PROVIDERS: Emergency Medicine; Emergency Provider Emergency Medicine; PCP Family Medicine
DX: I10 Essential (primary) hypertension (principal); R07.89 Other chest pain
CPT/HCPCS: 36415; 71045; 80048; 80053; 81003; 82550; 82553; 82805; 82962; 83690; 84484; 85025; 93005; 93010; 96361; 96372; 96374; 96376; 99214; 99284; 99285; J2270